=== PATIENT | female | born 1945 | race Caucasian/White ===

== ENCOUNTER 2019-06-06 09:19 | Outpatient (REF) | payer MEDICARE, SELFPAY ==
[2019-06-06 12:10] LABS: HCT 38.9 % (36.0-46.0); HGB 12.9 g/dL (12.0-15.5); Mean Corp. HGB Concentration 33.2 g/dL (32.0-36.0); Mean Corpuscular Hemoglobin 28.9 pg (27.0-33.0); Mean Corpuscular Volume 87.2 fL (80-95); Mean Platelet Volume 10.4 fL (8.0-11.0); Platelet Count 236 x1000/uL (130-400); RBC 4.46 m/cumm (4.00-5.20); RBC Distribution Width 13.5 % (11.7-14.6); White Blood Cell Count 3.51 k/cumm (4.4-10.8)
[2019-06-06 12:36] LABS: ALT 28 U/L (14-59); AST 21 U/L (15-37); BUN 19 mg/dL (7-18); CREATININE 0.79 mg/dL (0.55-1.02); Calcium 9.2 mg/dL (8.5-10.1); Chloride 104 mmol/L (98-107); Glucose 105 mg/dL (70-100); Potassium 4.2 mmol/L (3.5-5.1); Sodium 141 mmol/L (136-145); TSH (W/Ref FT4) 2.99 uIU/mL (0.36-3.74)
[2019-06-06 12:47] LABS: Hemoglobin A1C 6.1 % (4.5-6.2)
[2019-06-06 12:50] LABS: Calculated LDL 63 mg/dL; Cholesterol 144 mg/dL (50-200); GGT 50 U/L (5-55); HDL Cholesterol 56 mg/dL (40-60); Triglyceride 125 mg/dL (30-150)
== END 2019-06-06 09:39 ==
LOC: NCHCN 09:19
PROVIDERS: Visit Provider Nurse Practitioner Family
DX: E78.70 Disorder of bile acid and cholesterol metabolism, unspecified (principal); R73.9 Hyperglycemia, unspecified; E03.9 Hypothyroidism, unspecified; B19.20 Unspecified viral hepatitis C without hepatic coma; D72.819 Decreased white blood cell count, unspecified
CPT/HCPCS: 80048; 80061; 85027; 82977; 83036; 84443; 84450; 84460

== ENCOUNTER 2020-05-27 08:04 | Outpatient (REF) | payer MEDICARE, SELFPAY ==
[2020-05-27 20:49] LABS: HCT 42.3 % (36.0-46.0); HGB 13.4 g/dL (11.2-15.7); MCHC 31.7 % (32.0-36.0); MCV 88.3 fL (80-95); MPV 11.2 fL (8.0-11.0); Platelet Count 237 10^3/uL (130-400); RBC 4.79 10^6/uL (3.93-5.22); RDW 13.7 % (11.7-14.6); RDW-SD 44.4 fL; WBC 5.11 10^3/uL (4.4-10.8)
[2020-05-29 15:02] LABS: HCV RNA Qualitative Undetected (Undetected)
== END 2020-05-27 08:24 ==
LOC: NCHCN 08:04
PROVIDERS: Visit Provider Nurse Practitioner Family
DX: D72.819 Decreased white blood cell count, unspecified (principal); B19.20 Unspecified viral hepatitis C without hepatic coma
CPT/HCPCS: 85027; 87522

== ENCOUNTER 2020-09-01 04:58 | Outpatient (RCR) | payer OTHER, SELFPAY ==
--- NOTE | 2020-09-01 09:15 | HOLTER_ITS ---
APPROVED REPORT Exam Type: HOLTER MONITOR APPLICATION Reason for Test: Palpitations Patient Location: O Conclusion This is a 48-hour Holter monitor ordered for the indication of palpitations. ???The patient was in atrial fibrillation for the entirety of the recording with a maximum heart rate of 115 bpm. Minimum heart rate was 50 bpm. ???There were rare PVCs and no episodes of ventricular tachycardia. ???There were no pauses greater than 3 seconds and no evidence of high degree heart block.
== END 2020-09-28 23:59 | disposition home or self-care (01) ==
LOC: RT 04:58
PROVIDERS: PCP Nurse Practitioner Family; Visit Provider Nurse Practitioner Family
DX: R00.2 Palpitations (principal); I48.91 Unspecified atrial fibrillation
CPT/HCPCS: 93227; 93225; 93226

== ENCOUNTER 2020-09-08 12:58 | Outpatient (REF) | payer OTHER, SELFPAY ==
[2020-09-08 13:28] LABS: HCT 40.9 % (36.0-46.0); HGB 13.5 g/dL (11.2-15.7); MCH 28.4 pg (27.0-33.0); MCV 86.1 fL (80-95); MPV 10.9 fL (8.0-11.0); Platelet Count 239 10^3/uL (130-400); RBC 4.75 10^6/uL (3.93-5.22); RDW 13.5 % (11.7-14.6); RDW-SD 42.4 fL; WBC 5.25 10^3/uL (4.4-10.8)
[2020-09-08 13:54] LABS: BUN 21 mg/dL (7-18); CREATININE 0.89 mg/dL (0.55-1.02); Calcium 9.1 mg/dL (8.5-10.1); Chloride 102 mmol/L (98-107); Glucose 100 mg/dL (74-106); Sodium 136 mmol/L (136-145); TSH (W/Ref FT4) 4.36 uIU/mL (0.36-3.74)
[2020-09-08 14:15] LABS: FREE T4 0.89 ng/dL (0.76-1.46)
== END 2020-09-08 13:18 ==
LOC: NCHCN 12:58
PROVIDERS: PCP Nurse Practitioner Family; Visit Provider Nurse Practitioner Family
DX: I48.91 Unspecified atrial fibrillation (principal)
CPT/HCPCS: 80048; 85027; 84439; 84443

== ENCOUNTER 2020-09-30 18:46 | Outpatient (CLI) | payer OTHER, SELFPAY ==
--- NOTE | 2020-09-30 07:24 | DI.US_ITS ---
APPROVED REPORT EXAM: Comprehensive 2D, Doppler, and color-flow Echocardiogram Patient Location: Out-Patient Supervisor Print Line: Teresa York RDCS (AE) Indications: Atrial Fibrillation Other Information Study Quality: Adequate Conclusion Left Ventricle : The left ventricle is normal size. The left ventricular systolic function is normal. The left ventricular ejection fraction is within the normal range. There is normal left ventricular wall thickness. There is discrete upper septal wall thickening without any evidence of obstruction. There is normal LV segmental wall motion. LVEF is 55-60%. Right Ventricle : Right ventricle is not well visualized. Right ventricular systolic function could n ot be assessed. The RVSP is 24.7 mmHg. Atria : The left atrium size is normal. The right atrium size is normal. Valves: There are no hemodynamically significant valvular lesions. Great Vessels : The aortic root is normal in size. The ascending aorta is mildly dilated. IVC is norm al in size and collapses >50% with inspiration. Please see remainder of study for further details. Wall motion Left Ventricle The left ventricle is normal size. The left ventricular systolic function is normal. The left ventric ular ejection fraction is within the normal range. There is normal left ventricular wall thickness. T here is discrete upper septal wall thickening without any evidence of obstruction. There is normal LV segmental wall motion. There is no ventricular septal defect visualized. LVEF is 55-60%. Right Ventricle Right ventricle is not well visualized. Right ventricular systolic function could not be assessed. Th e RVSP is 24.7 mmHg. Atria The left atrium size is normal. The right atrium size is normal. The interatrial septum is intact wit h no evidence for an atrial septal defect. Aortic Valve The aortic valve is normal in structure. Aortic valve is trileaflet. There is no aortic valvular sten osis. No aortic regurgitation is present. Mitral Valve Mild mitral annular calcification. No evidence of mitral valve stenosis. Mild mitral regurgitation. Tricuspid Valve The tricuspid valve is normal in structure. There is no tricuspid valve stenosis. Mild tricuspid regu rgitation. Pulmonic Valve The pulmonary valve is normal in structure. There is no pulmonic valvular stenosis. Trace to mild pul carly regurgitation. Great Vessels The aortic root is normal in size. The ascending aorta is mildly dilated. IVC is normal in size and c ollapses >50% with inspiration. Pericardium There is no pericardial effusion. 2D Dimensions IVSD d PLAX 1.02 cm F: 0.6-1.0 LV Vol A2C d MOD 109.4 mL LVPW d PLAX 1.04 cm F: 0.6 - 1.0 LV Vol A4C d MOD 81.6 mL LVID d PLAX 4.32 cm F: 3.8 - 5.2 LA vol/ BSA A2C s A-L 21.8 mL/m2 LVDs 2.95 cm F: 2.2 - 3.5 LA vol/ BSA A4C s A-L 34.1 mL/m2 Ao Root d 3.54 cm F: 2.7 - 3.3 LA Vol/ BSA Biplane s A-L 28.0 mL/m2 Ao Asc Diam d 3.72 cm F: 2.3 - 3.1 LA Area A4C s MOD 20.32 cm2 LV EF Teichholz 58.6 % LA Area A2C s MOD 15.86 cm2 LVEF (Smith's) 57.18 % F: 54 - 74 LV EF A4C MOD 59.3 % LV Volume 72.90 mL F: 46 - 106 LV EF A2C MOD 56.2 % LV Volume Index 38.98 mL/m2 F: 29 - 61 LV EF Biplane MOD 57.2 % LV Vol Biplane MOD 95.0 mL SV 54.33 mL FS 30.75 % SV Index 29.04 mL/m2 M-Mode TAPSE 1.50 cm (M/F) >1.7 LV Diastology MV E' medial 0.063 (>0.07 m/s) E/A Ratio 1.0 LV E/e MED 11.40 (<14) MV E Vmax 0.72 (0.4-1.3 m/s) MV E' lateral 0.112 (>0.1 m/s) MV A Vmax 0.70 (0.4-1.3 m/s) LV E/e LAT 6.35 (<14) MV E/A Ratio 1.02 MV E/E' medial 11.43 MV E/E' lateral 6.38 Aortic Valve LVOT Area 3.58 cm2 AoV Area Vmax 2.75 cm2 LVOT Vmax 1.41 m/s AoV Area/ BSA (Vmax) 1.47 cm2/m2 LVOT Mean Lico. 0.97 m/s SIOMARA Mean Lico. 2.88 cm2 LVOT Peak Grad 7.9 mmHg SIOMARA Mean Lico. Index 1.54 cm2/m2 LVOT Mean Grad 4.4 mmHg LVOT VTI 0.294 m LVOT Diam s 2.10 cm AoV Vmax 1.83 m/s Velocity Ratio 0.77 AoV Mean Lico. 1.21 m/s AoV Peak Grad 13.4 mmHg LVOT SV 105.38 mL AoV Mean Grad 6.8 mmHg AoV VTI 0.360 m AoV Area VTI 2.92 cm2 AoV Area/ BSA (VTI) 1.56 cm/m2 Mitral Valve MV DT 249 (160-240 msec) MR Vmax 5.11 m/s MV PHT 72 msec MR VTI 1.557 m MV Area PHT 3.05 cm2 MR Peak Grad 104.4 mmHg MV VTI 0.254 m MR Mean Grad 77.5 mmHg MV Area VTI 4.15 (4.0-6.0 cm2) MR PISA Radius 0.28 cm MR EROA 0.03 cm2 MR Aliasing Velocity 0.35 m/s MR PISA 0.48 cm2 Pulmonary Valve PV Vmax 1.12 (0.5-1.5 m/s) RVOT Peak Gr. 2.26 mmHg PV Peak Grad 5.1 mmHg RVOT Mean Gr. 1.20 mmHg PV Mean Grad 2.6 mmHg RVOT VTI 0.152 m PV VTI 0.209 m RVOT Vmax 0.75 m/s Tricuspid Valve TR Peak Grad 21.6 mmHg TR Vmax 2.33 m/s RA Pressure 3.00 mmHg RVSP (TR) 24.7 mmHg
== END 2020-09-30 18:47 | disposition home or self-care (01) ==
LOC: DI 18:46
PROVIDERS: PCP Nurse Practitioner Family; Visit Provider Nurse Practitioner Family
DX: I77.810 Thoracic aortic ectasia (principal)
CPT/HCPCS: 93306

== ENCOUNTER 2020-10-17 12:58 | Outpatient (CLI) | payer OTHER, SELFPAY ==
--- NOTE | 2020-10-17 13:00 | RT.EKG_ITS ---
APPROVED REPORT Exam: Resting ECG Patient Location: O HR:86 bpm ECG Measurements Heart Rate 86 AXIS MD [id number] P [id number] QRSd 88 QRS 0 QT 381 T 2 QTc 456 Conclusion Atrial fibrillation.. Low voltage, precordial leads...precordial leads <1.0mV Anteroseptal infarct, age indeterminate...Q >35mS, T neg, V1-V2 Baseline wander in lead(s) V5
== END 2020-10-17 12:59 | disposition home or self-care (01) ==
LOC: DI.CARD 13:10
PROVIDERS: PCP Nurse Practitioner Family; Referring Provider Nurse Practitioner Family; Visit Provider Internal Medicine Cardiovascular Disease
DX: I48.91 Unspecified atrial fibrillation (principal)
CPT/HCPCS: 93010

== ENCOUNTER → 2020-10-17 12:58 | Outpatient (BNVA) | payer OTHER, SELFPAY | PROVIDERS: PCP Nurse Practitioner Family; Referring Provider Nurse Practitioner Family; Visit Provider Internal Medicine Cardiovascular Disease | DX: I48.91 Unspecified atrial fibrillation (principal); I10 Essential (primary) hypertension | CPT/HCPCS: 99203; 99204 ==

== ENCOUNTER 2020-11-04 15:15 | Outpatient (REF) | payer OTHER, SELFPAY ==
[2020-11-04 15:28] LABS: TSH 1.11 uIU/mL (0.36-3.74)
== END 2020-11-04 15:16 | disposition home or self-care (01) ==
LOC: NCHCN 15:15
PROVIDERS: PCP Nurse Practitioner Family; Visit Provider Nurse Practitioner Family
DX: E03.9 Hypothyroidism, unspecified (principal)
CPT/HCPCS: 84443

== ENCOUNTER 2021-02-03 10:52 | Outpatient (CLI) | payer OTHER, SELFPAY ==
--- NOTE | 2021-02-03 11:15 | RT.EKG_ITS ---
APPROVED REPORT Exam: Resting ECG Reason for Exam: afib Patient Location: O HR:58 bpm ECG Measurements Heart Rate 58 AXIS NJ 347 P -22 QRSd 96 QRS -2 QT 446 T -23 QTc 439 Conclusion Sinus rhythm...normal P axis, V-rate 50- 99 Prolonged NJ interval...NJ >220, V-rate 50- 90 Low voltage, precordial leads...precordial leads <1.0mV Borderline T abnormalities, diffuse leads...T flat/neg
== END 2021-02-03 10:53 | disposition home or self-care (01) ==
LOC: DI.CARD 11:20
PROVIDERS: PCP Nurse Practitioner Family; Referring Provider Nurse Practitioner Family; Visit Provider Internal Medicine Cardiovascular Disease
DX: I48.91 Unspecified atrial fibrillation (principal)
CPT/HCPCS: 93010

== ENCOUNTER → 2021-02-03 10:52 | Outpatient (BNVA) | payer OTHER, SELFPAY | PROVIDERS: PCP Nurse Practitioner Family; Referring Provider Nurse Practitioner Family; Visit Provider Internal Medicine Cardiovascular Disease | DX: I48.0 Paroxysmal atrial fibrillation (principal); Z79.01 Long term (current) use of anticoagulants; I10 Essential (primary) hypertension | CPT/HCPCS: 93005; 99214 ==

== ENCOUNTER 2021-02-12 00:27 | Outpatient (CLI) | payer OTHER, SELFPAY ==
--- NOTE | 2021-02-12 07:15 | DI.NM_ITS ---
APPROVED REPORT Exam: Pharmacologic with low level exercise Patient Location: Out-Patient Room/Bed: Stress Nurse: Anjana Vila RN; Rufus Mcgrath RN Ordering Provider:MARKOS STALLWORTH, Contact Number: BMI: 32.59 Baseline Rhythm: Sinus Rhythm, first degree HB Comment: 1st DHB, frequent pauses, inverted T waves lead III Indications: atypical chest pain, afib Medical History Medical History: afib, HTN, HLD, hypothroidism Cardiac Medications: rosuvastatin, rivaroxaban, losartan/HCTZ, levothyroxine Allergies: diflunisal, ezetimibe, quinapril Cardiac Risk Factors: HTN, HLD, obesity, Family History Previous Cardiac Procedures: stress test (10 years ago) Pretest Chest Pain Characteristics: none Exercise History: Sedentary Physical Disabilities: none Lung Sounds: Clear to auscultation Heart Sounds: Irregular, pauses Stress Test Details Test: Pharmacologic stress was paired with low level exercise. Nuclear Acquisition: Rest Tc-99m/Stress Tc-99m 1 day Rest Isotope: Tc-99m Sestamibi. Dose: 11 Date: 02/12/2021 Injection Time: 0930 Stress Isotope: Tc-99m Sestamibi. Dose: 38 Date: 02/12/2021 Injection Time: 1117 HR Resting HR Supine: 66 bpm Max Heart Rate (APMHR): 145.038319 bpm Resting HR Standin bpm Target HR (85% APMHR): 123.162828 bpm Max HR Achieved: 109 bpm % of APMHR: 75.17 Recovery HR: 80 bpm BP Resting BP Supine: 146/80 mmHg Resting BP Standin/80 mmHg Max BP: 158/70 mmHg Recovery BP: 150/72 mmHg ECG Resting ECG: Sinus Rhythm, 1st degree AV block Comment: frequent pauses Stress ECG: Sinus Rhythm, 1st degree AV block ST Change: none Arrhythmia: none Comment: frequent pauses Recovery ECG: Sinus Rhythm, 1st degree AV block Recovery ST Change: none Recovery Arrhythmia: none Comment: occ PVCs, frequent pauses Clinical Stress Symptoms: SOB Exercise duration: 4 min16 sec Exercise capacity: 1.92 METs Rate Pressure Product: [id number] Stress ECG Conclusion 1. The resting electrocardiogram showed vertical axis first-degree AV block poor R wave progression 2. Patient exercised briefly on the treadmill to a workload of 1.92 METS. She also had pharmacologic stress with regadenoson 3. Blunted hemodynamics. Peak heart rate achieved was 75% of predicted for age. 4. Echocardiographically the test was nondiagnostic due to inadequate heart rate Stress Test Summary STAGE HR BP Symptoms NOTES Supine 66 146/80 1 min post Lexiscan injection 101 140/76 SOB 3 min post Lexiscan injection 96 158/70 SOB improving 6 min post Lexiscan injection 80 150/72 SOB resolved Standing 63 154/80 Treadmill speed 1.2MPH, 0% grade MPI Conclusion Normal myocardial perfusion without evidence of ischemia or prior infarction EF 63% Radiologist Interpretation Radiologist Interpretation by: Eleazar Ag MD Interpretation Date/Time: 02/13/2021 13:50:46
[2021-02-12] MEDS: Regadenoson 0.4 MG/5 ML SYR IVP (11:25)
== END 2021-02-12 00:47 ==
PROVIDERS: PCP Nurse Practitioner Family; Visit Provider Internal Medicine Cardiovascular Disease
DX: R07.89 Other chest pain (principal); I48.91 Unspecified atrial fibrillation; I10 Essential (primary) hypertension; E78.5 Hyperlipidemia, unspecified; E66.9 Obesity, unspecified; Z82.49 Family history of ischemic heart disease and other diseases of the circulatory system
CPT/HCPCS: 78452; 93016; 93018; 93017; J2785

== ENCOUNTER 2021-04-27 10:05 | Emergency (ER) | payer OTHER, SELFPAY ==
[2021-04-27 10:22] VITALS: BP 173/80; PULSE 48; RESP 18; TEMP 36.8; O2SAT 98
--- NOTE | 2021-04-27 10:30 | ED.GENADUL_ITS ---
Discharge Plan Disposition Patient Disposition: HOME Condition: Stable Discharge Details Clinical Impression: Laceration of finger of left hand Primary Care Provider: Vicenta Ndiaye ED Provider: Mikaela Espinoza Home Meds and New Rx's Prescriptions: New cephalexin 500 mg tablet 500 mg PO BID 7 Days Qty: 14 RF: 0 No Action levothyroxine 13 mcg capsule 68.5 mcg PO DAILY RF: 0 Xarelto 20 mg tablet 20 mg PO DAILY RF: 0 losartan-hydrochlorothiazide 100-12.5 mg tablet 1 tab PO DAILY RF: 0 rosuvastatin 5 mg tablet See Rx Instructions PO DAILY RF: 0 multivitamin Tablet 1 tab PO DAILY RF: 0 Discharge Instructions Instructions: Finger Laceration (ED) Additional Instructions: At this time it does not appear that the tendon is involved, however we will place you on antibiotics due to the laceration being over a joint space. You were given the first dose here in the department. Please take them twice daily as instructed for the next 7 to 10 days. Have sutures removed in 7 to 10 days. Return for any worsening signs of infection including red streaks drainage swelling or any concerns. Please follow-up with orthopedics in 1 week for further evaluation. Follow up with primary care provider in 3-5 days. Return to ED sooner if any worsening or concerns. Increase oral fluids. Please take Tylenol or Ibuprofen with food every 4-6 hours as needed for pain and swelling. Referrals: Jay Ochoa MD [ [facility] STAFF PHYSICIAN] - 1 week Vicenta Ndiaye [Primary Care Provider] - Medical Decision Making At this time I do not appreciate a tendon injury on exam. Patient is able to extend and flex index finger without difficulty. Bleeding is controlled at this time. Laceration is sutured upon arrival. I did place patient on cephalexin 500 mg twice daily due to the laceration being over the joint space. I instructed her to follow-up with orthopedics in 1 week for follow-up. N onadherent dressing placed, strict return instructions and home care discussed patient verbalized understanding. HPI General Mode of arrival: ambulatory . Date/Time Provider Initiated Documentation: 04/27/21 10:12 . Limitations to Documentation: no limitations . Information obtained by: patient and RN notes reviewed . HPI Narrative: 75-year-old female presents to the ER after being seen in [facility] this morning. She reports a laceration which occurred while washing dishes at 8 AM this morning. She has a laceration noted to the dorsum of her index finger at the knuckle. She has full extension and flexion of the digit. The provider at the urgent care was concerned that an extensor tendon may have been involved and it is over the joint space. Sutures were placed at urgent care this morning prior to arrival. Patient is on Xarelto. Bleeding is controlled upon arrival. Related Data Home Medications Medication Instructions Recorded Confirmed losartan 100 1 tab PO DAILY 09/08/20 04/27/21 mg-hydrochlorothiazide 12.5 mg tablet rivaroxaban 20 mg tablet 20 mg PO DAILY 09/08/20 04/27/21 levothyroxine 13 mcg capsule 68.5 mcg PO DAILY cap 10/17/20 04/27/21 rosuvastatin 5 mg tablet See Rx Instructions PO DAILY 02/03/21 04/27/21 cephalexin 500 mg PO BID 7 Days #14 tab 04/27/21 multivitamin 1 tab PO DAILY 04/27/21 04/27/21 Previous Rx's Medication Instructions Recorded cephalexin 500 mg PO BID 7 Days #14 tab 04/27/21 Allergies Allergy/AdvReac Type Severity Reaction Status Date / Time diflunisal [From Dolobid] Allergy Mild Verified 04/27/21 10:27 ezetimibe [From Zetia] Allergy Mild Verified 04/27/21 10:27 quinapril [From Accupril] Allergy Mild Verified 04/27/21 10:27 General Stated Complaint: Laceration JIMMY: 3 Review of Systems All systems reviewed & are unremarkable except as noted in HPI and below Musculoskeletal Musculoskeletal: Reports as per HPI Integumentary/Breasts Skin/Breast: Reports wounds (Left index finger laceration, dorsum of hand over the joint) [facility] Social History Smoking/Tobacco Use Status: Never Smoking risk assessment performed?: Yes Alcohol Intake: current Alcohol Intake frequency: a few times a week Alcohol type: wine Drug use: Never Do you feel safe at home: Yes Do you feel safe in your relationship?: Yes Exam Extrem Left upper extremity: hand Details: normal capillary refill, neuromotor exam normal Details: fingers 2-5 ABduction normal, neurosensory exam normal, normal ROM of fingers and laceration (Sutured laceration noted over MCP joint) Course Vital Signs Vital signs: Vital Signs Temperature 36.8 C 04/27/21 10:22 Pulse 48 L 04/27/21 10:22 Respiratory Rate 18 04/27/21 10:22 Blood Pressure 173/80 H 04/27/21 10:22 Pulse Oximetry 98 04/27/21 10:22 Temperature 36.8 C 04/27/21 10:22 Temperature Source Oral 04/27/21 10:22 Pulse 48 L 04/27/21 10:22 Respiratory Rate 18 04/27/21 10:22 Blood Pressure 173/80 H 04/27/21 10:22 Blood Pressure Position Sitting 04/27/21 10:22 Pulse Oximetry 98 04/27/21 10:22 Oxygen Delivery Method Room Air 04/27/21 10:22 Oxygen Flow Rate 0 04/27/21 10:22 Pain Level 1 04/27/21 10:22
[2021-04-27] MEDS: Cephalexin 500 MG CAP, 2 CAPS/BTL PO (10:44)
[2021-04-27] MEDS: Cephalexin 500 MG CAP PO (10:44)
--- NOTE | 2021-04-27 15:11 | W.ED.FU ---
Date of service: 04/27/21 Time of Service: 15:11 Follow Up Plan: Spoke with Dr. Cornejo he from express care regarding patient. He relays his expectation was for us to reopen the wound and explore the tendon involvement. He also related the orthopedic recommendation to place patient in extension splint. I did call the patient she reports no complaints, she has been keeping her finger in extension with the dressing that was applied here. I did relay the information for orthopedics recommendation to have patient in extension. I did encourage her to keep her orthopedic appointment in 1 week. Patient verbalized understanding. At this time I do not feel it is necessary to bring patient back to reopen the wound.
== END 2021-04-27 10:54 | disposition home or self-care (01) ==
PROVIDERS: Emergency Provider Registered Nurse Emergency; PCP Nurse Practitioner Family
DX: S61.211A Laceration without foreign body of left index finger without damage to nail, initial encounter (principal); W25.XXXA Contact with sharp glass, initial encounter
CPT/HCPCS: 99283

== ENCOUNTER → 2022-04-22 08:18 | Outpatient (BNVA) | payer OTHER, SELFPAY | PROVIDERS: PCP Nurse Practitioner Family; Referring Provider Nurse Practitioner Family; Visit Provider Psychiatry & Neurology Neurology | DX: G25.0 Essential tremor (principal); G25.81 Restless legs syndrome; R13.10 Dysphagia, unspecified; I48.91 Unspecified atrial fibrillation | CPT/HCPCS: 99214 ==

== ENCOUNTER 2022-05-11 03:55 | Outpatient (CLI) | payer OTHER, SELFPAY ==
[2022-05-11 13:12] LABS: Ferritin 22 ng/mL (8-252)
== END 2022-05-11 03:56 | disposition home or self-care (01) ==
LOC: LBO 03:55
PROVIDERS: PCP Nurse Practitioner Family; Visit Provider Psychiatry & Neurology Neurology
DX: I48.91 Unspecified atrial fibrillation (principal)
CPT/HCPCS: 36415; 82728

== ENCOUNTER 2022-06-09 19:53 | Outpatient (REF) | payer OTHER, SELFPAY ==
[2022-06-09 15:13] LABS: HGB 12.5 g/dL (11.2-15.7); MCH 27.7 pg (27.0-33.0); MCHC 32.9 % (32.0-36.0); MCV 84 fL (80-95); MPV 11.5 fL (8.0-11.0); Platelet Count 216 10^3/uL (130-400); RBC 4.52 10^6/uL (3.93-5.22); RDW 13.5 % (11.7-14.6); RDW-SD 42.1 fL
[2022-06-09 15:33] LABS: ALT 45 U/L (14-59); AST 34 U/L (15-37); Albumin 3.7 g/dL (3.4-5.0); Alkaline Phosphatase 75 U/L (46-116); Anion Gap 12.1 mmol/L (3-11); BUN 19 mg/dL (7-18); Bilirubin, Total 0.5 mg/dL (0.2-1.0); CO2 23.9 mmol/L (21.0-32.0); CREATININE 0.8 mg/dL (0.55-1.02); Calcium 9.1 mg/dL (8.5-10.1); Calculated LDL 52 mg/dL (<100); Chloride 101 mmol/L (98-107); Cholesterol 137 mg/dL (<200); Estimated GFR 76.31 (mL/min/1.73m2); Glucose 81 mg/dL (74-106); HDL Cholesterol 61 mg/dL (40-60); Potassium 4.2 mmol/L (3.5-5.1); Sodium 137 mmol/L (136-145); TSH (W/Ref FT4) 2.08 uIU/mL (0.36-3.74); Total Protein 6.9 g/dL (6.4-8.2); Triglyceride 123 mg/dL (<150)
== END 2022-06-09 19:54 | disposition home or self-care (01) ==
LOC: NCHCN 19:53
PROVIDERS: PCP Nurse Practitioner Family; Visit Provider Nurse Practitioner Family
DX: E03.9 Hypothyroidism, unspecified (principal); D72.818 Other decreased white blood cell count; E78.79 Other disorders of bile acid and cholesterol metabolism; I10 Essential (primary) hypertension
CPT/HCPCS: 80053; 80061; 85027; 84443

== ENCOUNTER 2023-02-06 07:32 | Emergency (ER) | payer MEDICARE, SELFPAY ==
[2023-02-06] VITALS (58 sets, daily range): BP systolic 113–158; BP diastolic 56–93; PULSE 41–69; RESP 11–44; O2SAT 97
--- NOTE | 2023-02-06 07:30 | RT.EKG_ITS ---
APPROVED REPORT Exam: Resting ECG Reason for Exam: chest pain Patient Location: E HR:48 bpm ECG Measurements Heart Rate 48 AXIS OK 402 P 25 QRSd 90 QRS -16 QT 502 T 3 QTc 451 Conclusion Bradycardia with irregular rate...V-rate 37- 55, mean < 60 Prolonged OK interval...OK >230, V-rate 30- 49 Low voltage, precordial leads...precordial leads <1.0mV Anteroseptal infarct, old...Q >40mS, V1-V2
--- NOTE | 2023-02-06 07:59 | ED.GENADUL_ITS ---
Discharge Plan Disposition Patient Disposition: Transfer-Acute Inpatient Care Specific Acute Inpt Facility: [facility] Discharge Details Clinical Impression: Non-STEMI (non-ST elevated myocardial infarction), AV block, Mobitz II Primary Care Provider: Vicenta Ndiaye ED Provider: Brice Gabriel Home Meds and New Rx's Prescriptions: No Action levothyroxine 13 mcg capsule 68.5 mcg PO DAILY krill oil [id number] mg capsule 1 cap PO DAILY Xarelto 20 mg tablet 20 mg PO DAILY Rx Instructions: must administer with evening meal losartan-hydrochlorothiazide 100-12.5 mg tablet 1 tab PO DAILY rosuvastatin 5 mg tablet See Rx Instructions PO DAILY Rx Instructions: 2.5 PO daily; ferrous sulfate [FeroSul] 325 mg (65 mg iron) tablet 325 mg PO DAILY multivitamin Tablet 1 tab PO DAILY Medical Decision Making Case discussed with Dr. Delong from [facility]. Patient accepted in transfer for her non-STEMI and her heart block. Dr. Ilia Rodriguez is excepting physician. They have requested the patient be on a heparin drip given dose and aspirin and statin. HPI General Date/Time Provider Initiated Documentation: 02/06/23 07:39 . HPI Narrative: 77-year-old lady states that she woke up symptom-free walk to the kitchen to take her morning meds and states that she was feeling funny, proceeded to the family room she noticed some substernal chest pressure across her chest. No radiation to neck or arms not associated with any nausea vomiting. No shortness of breath. She proceeded go to the bathroom and after using the bathroom felt even more if any. More pressure and diaphoresis. At its maximum blood pressure/pain was 2 out of 10. It has not resolved currently in the emergency department she states she is comfortable but still has a 1 out of 10 chest pressure. Has never had this before. Of note this is a lady that back in November was taken off her Xarelto. She was on Xarelto for atrial fibrillation. She was cardioverted last year and given that she was in normal sinus rhythm PCP to decide to take her off the Xarelto. States that she think she had an episode of atrial fibrillation last week and for that reason started taking the Xarelto again. Related Data Home Medications Medication Instructions Recorded Confirmed losartan 100 1 tab PO DAILY 09/08/20 02/06/23 mg-hydrochlorothiazide 12.5 mg tablet rivaroxaban 20 mg tablet (Xarelto) 20 mg PO DAILY 09/08/20 02/06/23 levothyroxine 13 mcg capsule 68.5 mcg PO DAILY 10/17/20 02/06/23 rosuvastatin 5 mg tablet See Rx Instructions PO DAILY 02/03/21 04/22/22 multivitamin 1 tab PO DAILY 04/27/21 02/06/23 krill 500 mg-omega-3 150 mg-dha 45 1 cap PO DAILY 04/22/22 04/22/22 mg-epa 75 [id number] capsule (krill oil) ferrous sulfate 325 mg (65 mg 325 mg PO DAILY 02/06/23 02/06/23 iron) tablet (FeroSul) Allergies Allergy/AdvReac Type Severity Reaction Status Date / Time diflunisal [From Dolobid] Allergy Mild Verified 02/06/23 07:48 ezetimibe [From Zetia] Allergy Mild Verified 02/06/23 07:48 quinapril [From Accupril] Allergy Mild Verified 02/06/23 07:48 General Stated Complaint: Chest Pain JIMMY: 3 Review of Systems Narrative: 10 point review of system is negative unless otherwise specified in HPI PFSH All Active Problems (Updated 02/06/23 @ 10:51 by Brice Gabriel MD) Non-STEMI (non-ST elevated myocardial infarction) (Acute) AV block, Mobitz II (Acute) Dysphagia (Acute) Restless leg syndrome (Acute) Essential tremor (Acute) Laceration of finger of left hand (Acute) A-fib (Chronic) Medical History Diverticular disease Heart murmur Hepatitis C High cholesterol History of prediabetes History of reactive airway disease Hypertension Knee joint pain Leukopenia Neck abscess Rosacea Subclinical hypothyroidism Surgical History H/O cardiac radiofrequency ablation S/P surgical removal of pilonidal cyst S/P tonsillectomy and adenoidectomy Family History Brother Hypertension Hyperlipidemia Heart disease Father Hypertension Hyperlipidemia Heart disease Mother Hypertension Hyperlipidemia Diabetes Heart disease Social History Smoking/Tobacco Use Status: Never Smoking risk assessment performed?: Yes Alcohol Intake: current Alcohol Intake frequency: a few times a month Alcohol type: wine Drug use: Never Substance use type: does not use Household members: spouse Number of Children: 2 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 Exam Narrative Exam Narrative: General: A,A Ox3, Calm, no apparent distress, well developed, pleasant and cooperative Head Size/Shape: normocephalic, atraumatic Eyes Pupils: PERRLA Extraocular Mobility: intact and symmetrical Conjunctiva: non-injected, anicteric, no discharge Ears, Nose, Throat Nares: patent bilaterally Oral Cavity: moist Neck: no masses, no crepitus Respiratory Respiratory Effort: no dyspnea Auscultation: clear to auscultation bilaterally, normal breath sounds, no wheezing, no rales/crackles Cardiovascular Heart Auscultation: regular rate and rhythm, normal S1, normal S2, no murmurs, no rubs, no gallops Abdomen Inspection and Palpation: soft, non-tender, non-distended, no hepatosplenomegaly Musculoskeletal System Joints, Bones, and Muscles: no deformities Extremities: warm and well-perfused, no cyanosis, capillary refill <2 seconds Skin Skin Inspection: no rash, no lesions, no bruising Neurological Motor: normal tone, normal strength, moving all extremities equally Psychiatric: good insight, good judgement, normal mood and affect Course Vital Signs Vital signs: Vital Signs Pulse 55 L 02/06/23 07:44 Respiratory Rate 18 02/06/23 07:44 Blood Pressure 151/57 H 02/06/23 07:44 Pulse Oximetry 97 02/06/23 07:44 Pulse 55 L 02/06/23 07:44 Respiratory Rate 18 02/06/23 07:44 Blood Pressure 151/57 H 02/06/23 07:44 Blood Pressure Position Sitting 02/06/23 07:44 Pulse Oximetry 97 02/06/23 07:44 Oxygen Delivery Method Room Air 02/06/23 07:44 Oxygen Flow Rate 0 02/06/23 07:44 Critical Care Time Critical Care Time Critical Care Time: Yes Total Critical Care Time: 35 Attestation: Patient with non-STEMI. Increasing troponins. Pain-free after nitroglycerin in the emergency department. Heparinized. Also patient has intermittent Mobitz 2, requiring close monitoring. Patient accepted in transfer to [facility] cardiology service.
--- NOTE | 2023-02-06 08:00 | DI.RAD_ITS ---
Exam(s) XR CHEST 2V PA LATERAL EXAM: XR CHEST 2V PA LATERAL 2 CLINICAL HISTORY: chest pressure TECHNIQUE: 2D digital imaging was performed of the chest. Images were obtained. PA and lateral v iews were obtained. COMPARISON: No exams were available for comparison FINDINGS: MEDIASTINUM: There is a small hiatal hernia. HEART: Normal. PULMONARY VASCULATURE: Normal. LUNGS: Clear. PLEURAL SPACE: No pleural effusion or pneumothorax. BONE:Within normal limits for the patient's age. OTHER FINDINGS:Normal. IMPRESSION: No acute pulmonary findings. DATA REPOSITORY: RADIATION DOSE DELIVERED:
[2023-02-06 08:29] LABS: Absolute Basophil Count 0.04 10^3/uL (0.0-0.2); Absolute Eosinophil Count 0.05 10^3/uL (0.0-0.7); Absolute Lymphocyte Count 1.54 10^3/uL (1.2-3.4); Absolute Monocyte Count 0.24 10^3/uL (0.1-0.8); Absolute Neutrophil Count 1.52 10^3/uL (1.2-6.7); Basophils % 1.2; Eosinophils % 1.5; HCT 45.4 % (36.0-46.0); HGB 15.5 g/dL (11.2-15.7); Lymphocytes % 45.4; MCH 30.9 pg (27.0-33.0); MCHC 34.1 % (32.0-36.0); MCV 90 fL (80-95); MPV 10.3 fL (8.0-11.0); Monocytes % 7.1; Neutrophils % 44.8; Platelet Count 180 10^3/uL (130-400); RBC 5.02 10^6/uL (3.93-5.22); RDW 12.7 % (11.7-14.6); RDW-SD 41.7 fL; WBC 3.39 10^3/uL (4.4-10.8)
--- NOTE | 2023-02-06 08:37 | DI.VRAD_ITS ---
PROCEDURE INFORMATION: Exam: XR Chest Exam date and time: 02/06/2023 8:29 AM Age: 77 years old Clinical indication: Pain; Chest pressure TECHNIQUE: Imaging protocol: Radiologic exam of the chest. Views: 2 views. COMPARISON: No relevant prior studies available. FINDINGS: Lungs: Unremarkable. No consolidation. Pleural spaces: Unremarkable. No pleural effusion. No pneumothorax. Heart/Mediastinum: Unremarkable. No cardiomegaly. Bones/joints: Unremarkable. IMPRESSION: No acute findings. Dictated and Authenticated by: Jorge Doll MD. Ordering:ROBERTA Narvaez MD
[2023-02-06 08:56] LABS: ALT 35 U/L (14-59); AST 33 U/L (15-37); Albumin 3.7 g/dL (3.4-5.0); Alkaline Phosphatase 76 U/L (46-116); Anion Gap 8.7 mmol/L (3-11); BUN 17 mg/dL (7-18); Bilirubin, Total 0.8 mg/dL (0.2-1.0); CO2 27.3 mmol/L (21.0-32.0); CREATININE 0.9 mg/dL (0.55-1.02); Calcium 9.4 mg/dL (8.5-10.1); Chloride 100 mmol/L (98-107); Estimated GFR 65.84 (mL/min/1.73m2); Glucose 127 mg/dL (74-106); Potassium 4.2 mmol/L (3.5-5.1); Sodium 136 mmol/L (136-145); Total Protein 7.4 g/dL (6.4-8.2)
[2023-02-06 09:08] LABS: Troponin I 86 ng/L (<or=60)
--- NOTE | 2023-02-06 10:00 | RT.EKG_ITS ---
APPROVED REPORT Exam: Resting ECG Reason for Exam: repeat ekg Patient Location: E HR:62 bpm ECG Measurements Heart Rate 62 AXIS MI 466 P 28 QRSd 88 QRS 11 QT 490 T 22 QTc 498 Conclusion Second degree AV block, Mobitz II...multiple P waves Low voltage, extremity and precordial leads...extremity<0.5mV, precordial<1.0mV Anteroseptal infarct, old...Q >40mS, V1-V2
[2023-02-06] MEDS: Aspirin 325 MG TAB PO (10:53)
[2023-02-06] MEDS: Atorvastatin 40 MG TAB PO (11:01)
[2023-02-06 11:02] LABS: PTT Activated 29.5 sec (21.5-31.9)
[2023-02-06] MEDS: Heparin in 0.45% NaCl 25,000 UNIT/250 ML BAG 10 UNIT IV (11:26)
--- NOTE | 2023-02-06 11:40 | NUR.NOTE ---
Nursing Note: PT APTT noted to be 29.5 at this time.
[2023-02-06 11:55] LABS: Troponin I 196 ng/L (<or=60)
== END 2023-02-06 13:38 | disposition short-term general hospital (02) ==
PROVIDERS: Emergency Provider Emergency Medicine; PCP Nurse Practitioner Family
DX: I21.4 Non-ST elevation (NSTEMI) myocardial infarction (principal); I44.1 Atrioventricular block, second degree
CPT/HCPCS: 36415; 80053; 93005; 96365; 96376; 99291; 71046; 84484; 85025; 85730; 93010

== ENCOUNTER 2023-05-05 01:26 | Emergency (ER) | payer MEDICARE, SELFPAY ==
[2023-05-05] VITALS (39 sets, daily range): BP systolic 113–154; BP diastolic 40–79; PULSE 59–70; RESP 12–28; O2SAT 93–99
--- NOTE | 2023-05-05 01:15 | RT.EKG_ITS ---
APPROVED REPORT Exam: Resting ECG Reason for Exam: Chest pain Patient Location: E HR:62 bpm ECG Measurements Heart Rate 62 AXIS NV 228 P 264 QRSd 158 QRS 93 QT 581 T 266 QTc 592 Conclusion Atrial-ventricular dual-paced complexes...other complexes also detected
--- NOTE | 2023-05-05 01:30 | DI.RAD_ITS ---
Exam(s) XR PORTABLE CHEST AP EXAM: XR PORTABLE CHEST AP CLINICAL HISTORY: chest pain. TECHNIQUE: 2D digital imaging was performed. COMPARISON: CR,XR XR CHEST 2V PA LATERAL from 02/06/2023 FINDINGS: Single AP portable view. Bipolar left subclavian pacemaker with lead tips in RA and RV now evident. Heart size is upper normal. The mediastinum is not widened. Lungs are clear. No infiltrates nor obvious pleural effusions. No evidence of pulmonary edema. IMPRESSION: No acute pulmonary findings on this single AP portable view of the chest. DATA REPOSITORY: RADIATION DOSE DELIVERED:
--- NOTE | 2023-05-05 01:42 | ED.GENADUL_ITS ---
Discharge Plan Disposition Patient Disposition: Home Condition: Improving Discharge Details Clinical Impression: Atypical chest pain Primary Care Provider: Vicenta Ndiaye ED Provider: Rock Parker Meds and New Rx's Prescriptions: Continued levothyroxine 13 mcg capsule 50 mcg PO DAILY krill oil [id number] mg capsule 1 cap PO DAILY Xarelto 20 mg tablet 20 mg PO DAILY Rx Instructions: must administer with evening meal rosuvastatin 5 mg tablet 40 mg PO DAILY ferrous sulfate [FeroSul] 325 mg (65 mg iron) tablet 325 mg PO DAILY multivitamin Tablet 1 tab PO DAILY losartan 50 mg tablet 25 mg PO DAILY Patient Comments: Take 1/2 tablet by mouth once a day take 25mg daily bisoprolol fumarate 5 mg tablet 2.5 mg PO DAILY Patient Comments: TAKE ONE-HALF TABLET BY MOUTH EVERY DAY isosorbide mononitrate 30 mg tablet extended release 24 hr 30 mg PO Patient Comments: TAKE ONE TABLET BY MOUTH EVERY MORNING Discharge Instructions Instructions: Chest Pain (ED) Referrals: Vicenta Ndiaye [Primary Care Provider] - 1 week Discharge Data Discharge Date/Time-TO BE ENTERED AT DEPARTURE: 05/05/23 04:57 Discharge Physician: Rokc Parker Medical Decision Making MDM: Summary: Patient who presented to the emergency department complaining of chest pain which she says started after she ate a copious meal instructed she was indigestion but was concerned because the pain would not go away with nitroglycerin and the pain subsided. She states she was very belchy prior to that. Patient recently had a pacemaker placed and according to her it had a small non-STEMI while this was being done in the lab. 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 Her EKG was within normal limits her labs which included 2 serial troponins 3 hours apart were negative. Bedside echocardiogram was done by me shows no regional wall abnormalities. Patient has no evidence of acute coronary syndrome and will be discharged home with follow-up with her physician. Data Review Analysis All the data on this patient was reviewed by me including laboratory and imaging studies as well as bedside studies performed by me Independent review of Studies Imaging Chest x-ray was reviewed by me as well as a POCUS exam that was done by me that are unremarkable Lab: Labs which include 2 serial troponins are negative Risk Stratification: Patient has history of pacemaker and had a clean catheterization for she says she developed a non-STEMI when she was having the pacemaker placed who comes in for chest pain. She could be discharged home with close follow-up with her ammonia nitrate operator Differential Diagnosis: 1. Atypical chest pain 2. Acute coronary syndrome 3. Congestive heart failure 4. 5. Consultants: Shared disposition: Patient understands her disposition and agrees for she is versed in healthcare and understand that she can be safely discharged home Impression: Medical Records Medical records reviewed: Yes I reviewed the patient's medical records. Lab Data Lab results reviewed: Yes I reviewed the patient's lab results. ECG Data Attestation: I personally reviewed and interpreted this ECG (s) as follows: Prior ECG tracings: available for review Interpretation: HR 62 atrial ventricular dual paced complexes occasional PVCs HPI General Date/Time Provider Initiated Documentation: 05/05/23 01:40 . HPI Narrative: Patient presents to the emergency department complaining of midsternal chest pain which she reports is a dull pain which she thought it was indigestion after she ate a copious dinner. States the pain was continuous with a lot of belching and eventually decided to take nitroglycerin which she took for eventually the pain subsided but she called the ambulance and brought to the emergency department for evaluation. Patient has a history of having a pacemaker placed 2 weeks ago for second-degree heart block and states that the hospital she had a small [place]. She had an angiogram which showed no abnormalities in the setting might have been due to vasospasm. Related Data Home Medications Medication Instructions Recorded Confirmed rivaroxaban 20 mg tablet (Xarelto) 20 mg PO DAILY 09/08/20 05/05/23 levothyroxine 13 mcg capsule 50 mcg PO DAILY 10/17/20 05/05/23 rosuvastatin 5 mg tablet 40 mg PO DAILY 02/03/21 05/05/23 multivitamin 1 tab PO DAILY 04/27/21 05/05/23 krill 500 mg-omega-3 150 mg-dha 45 1 cap PO DAILY 04/22/22 05/05/23 mg-epa 75 [id number]-[id number]-bbeta capsule (krill oil) ferrous sulfate 325 mg (65 mg 325 mg PO DAILY 02/06/23 05/05/23 iron) tablet (FeroSul) bisoprolol fumarate 5 mg tablet 2.5 mg PO DAILY 05/05/23 05/05/23 isosorbide mononitrate 30 mg 30 mg PO 05/05/23 tablet,extended release 24 hr losartan 50 mg tablet 25 mg PO DAILY 05/05/23 05/05/23 Allergies Allergy/AdvReac Type Severity Reaction Status Date / Time diflunisal [From Dolobid] Allergy Mild Verified 05/05/23 01:40 ezetimibe [From Zetia] Allergy Mild Verified 05/05/23 01:40 quinapril [From Accupril] Allergy Mild Verified 05/05/23 01:40 General Stated Complaint: Chest Pain JIMMY: 2 Review of Systems Narrative: Review of Systems: Constitutional: No fevers, chills, sweats Eye: No recent visual problems ENT: No ear pain, nasal congestion, sore throat Respiratory: No shortness of breath, cough Cardiovascular: No Chest pain, palpitations, syncope Gastrointestinal: No nausea, vomiting, diarrhea Genitourinary: No hematuria Pan/Lymph: Negative for bruising tendency, swollen lymph glands Endocrine: Negative for excessive thirst, excessive hunger Musculoskeletal: No back pain, neck pain, joint pain, muscle pain, decreased range of motion Integumentary: No rash, pruritus, abrasions Neurologic: Alert & oriented X 4 Psychiatric: No anxiety, depression PFSH All Active Problems (Updated 05/05/23 @ 04:40 by Rock Parker MD) Atypical chest pain (Acute) Dysphagia (Acute) Restless leg syndrome (Acute) Essential tremor (Acute) Laceration of finger of left hand (Acute) A-fib (Chronic) Medical History Diverticular disease Heart murmur Hepatitis C High cholesterol History of prediabetes History of reactive airway disease Hypertension Knee joint pain Leukopenia Neck abscess Rosacea Subclinical hypothyroidism Surgical History H/O cardiac radiofrequency ablation S/P surgical removal of pilonidal cyst S/P tonsillectomy and adenoidectomy Family History Brother Hypertension Hyperlipidemia Heart disease Father Hypertension Hyperlipidemia Heart disease Mother Hypertension Hyperlipidemia Diabetes Heart disease Social History Smoking/Tobacco Use Status: Never Smoking risk assessment performed?: Yes Alcohol Intake: current Alcohol Intake frequency: a few times a month Alcohol type: wine Drug use: Never Substance use type: does not use Household members: spouse Number of Children: 2 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 Exam Narrative Exam Narrative: Exam; vitals signs as reported above normal Constitutional; In no acute distress, afebrile General: cooperative, healthy appearing, comfortable and no acute distress HEENT: Head: normal to inspection, no palpable skull fracture and normocephalic atraumatic Eyes: : appearance normal, both eyes and all related structures EOM intact bilaterally Pupils: PERRL : conjunctiva normal Direct ophthalmoscopy: normal light reflex, normal conjunctiva, normal visual acuity Ears: Normal TM, normal external canal Nose: normal no rhinorreha Neck no JVD, supple non tender Neck: normal visual inspection, full ROM and no lymphadenopathy Chest: normal inspection of the chest Respiratory : normal respiratory effort and able to speak in complete sentences no wheezing no rales Cardio Rate: regular rate, rhythm: regular rhythm normal heart sounds S1 and S2 no murmurs, gallops, or rubs GI : normal to inspection, normal bowel sounds, soft, non tender, non distended, no organomegaly Back/Spine/ no CVA tenderness Thoracic/Lumbar Spine: no tenderness or deformities Skin no rashes or lesions Neuro: patient alert oriented x 4 and no meningeal signs, Cranial Nerves: CN's II-XI intact bilaterally, Cognition: normal cognition, Speech: speech normal, Gait: normal gait, Depp tendon reflexes normal 2+ muscle strength 5/5 bilaterally Extremities, no edema, full range of motion, normal strength Course Vital Signs Vital signs: Vital Signs Pulse 68 05/05/23 01:19 Respiratory Rate 17 05/05/23 01:19 Blood Pressure 137/72 05/05/23 01:19 Pulse Oximetry 97 05/05/23 01:19 Pulse 68 05/05/23 01:19 Respiratory Rate 17 05/05/23 01:19 Respiratory Effort Normal 05/05/23 01:19 Blood Pressure 137/72 05/05/23 01:19 Blood Pressure Position Supine 05/05/23 01:19 Pulse Oximetry 97 05/05/23 01:19 Oxygen Delivery Method Room Air 05/05/23 01:19 Oxygen Flow Rate 0 05/05/23 01:19 Pain Level 1 05/05/23 01:19 POCUS Exam (ED) Limited Cardiac Exam DATE OF EXAM: 05/05/23 TIME OF EXAM: 02:00 PROVIDER THAT PERFORMED THE STUDY: Rock Parker IS THIS A REPEAT EXAM DURING THIS ENCOUNTER: no REASON FOR EXAM: Chest pain VISUALIZED STRUCTURES: Four Chambers, Left atrium, Left ventricle, LVOT, Right atrium, Right ventricle, Aortic valve, Mitral valve, Interventricular septum and IVC VIEW OBTAINED: Apical 4-Chamber, Parasternal long-axis, Parasternal short-axis and Subxiphoid PERTINENT FINDINGS/IMPRESSION: LV dysfunction :mild INCIDENTAL FINDINGS: mitral regurgitation mild Exam complete
[2023-05-05 02:06] LABS: Abs Immature Grans 0.01 10^3/uL (0.0-0.06); Absolute Basophil Count 0.03 10^3/uL (0.0-0.2); Absolute Eosinophil Count 0.09 10^3/uL (0.0-0.7); Absolute Lymphocyte Count 1.71 10^3/uL (1.2-3.4); Absolute Monocyte Count 0.44 10^3/uL (0.1-0.8); Absolute Neutrophil Count 4.75 10^3/uL (1.2-6.7); Basophils % 0.4; Eosinophils % 1.3; HCT 36.5 % (36.0-46.0); HGB 12.6 g/dL (11.2-15.7); Immature Grans % 0.1; Lymphocytes % 24.3; MCH 31.2 pg (27.0-33.0); MCHC 34.5 % (32.0-36.0); MCV 90 fL (80-95); MPV 10.3 fL (8.0-11.0); Monocytes % 6.3; Neutrophils % 67.6; Platelet Count 184 10^3/uL (130-400); RBC 4.04 10^6/uL (3.93-5.22); RDW-SD 42.8 fL; WBC 7.03 10^3/uL (4.4-10.8)
[2023-05-05 02:36] LABS: ALT 31 U/L (14-59); AST 43 U/L (15-37); Albumin 3.8 g/dL (3.4-5.0); Alkaline Phosphatase 58 U/L (46-116); Anion Gap 8.6 mmol/L (3-11); BUN 17 mg/dL (7-18); Bilirubin, Total 0.7 mg/dL (0.2-1.0); CO2 25.4 mmol/L (21.0-32.0); CREATININE 0.7 mg/dL (0.55-1.02); Calcium 9.6 mg/dL (8.5-10.1); Chloride 103 mmol/L (98-107); Estimated GFR 89.02 (mL/min/1.73m2); Glucose 118 mg/dL (74-106); Magnesium 2.2 mg/dL (1.8-2.4); NT-proBNP 761 pg/mL (<300); Potassium 4.4 mmol/L (3.5-5.1); Sodium 137 mmol/L (136-145); Total Protein 7.5 g/dL (6.4-8.2); Troponin I < 50 ng/L (<or=60)
--- NOTE | 2023-05-05 03:25 | DI.VRAD_ITS ---
PROCEDURE INFORMATION: Exam: XR Chest Exam date and time: 05/05/2023 2:17 AM Age: 77 years old Clinical indication: Other: Chest pain; Prior surgery; Surgery date: 6+ months; Surgery type: Pacemaker TECHNIQUE: Imaging protocol: Radiologic exam of the chest. Views: 1 view. COMPARISON: CR XR CHEST 2V PA LATERAL 02/06/2023 8:29 AM FINDINGS: Tubes, catheters and devices: Cardiac pacing device. Lungs: Mild pulmonary vascular congestion. Pleural spaces: No large pleural effusion seen. Heart/Mediastinum: Enlarged cardiac silhouette. Hiatal hernia. Bones/joints: Grossly unremarkable. IMPRESSION: No acute findings to explain reported symptoms. Dictated and Authenticated by: Esmer Copeland MD. Ordering:DANG Wilkerson MD
[2023-05-05 04:56] LABS: Troponin I < 50 ng/L (<or=60)
== END 2023-05-05 04:57 | disposition home or self-care (01) ==
PROVIDERS: Emergency Provider Emergency Medicine Emergency Medical Services; PCP Nurse Practitioner Family
DX: R07.89 Other chest pain; Z95.0 Presence of cardiac pacemaker; I44.1 Atrioventricular block, second degree
CPT/HCPCS: 36415; 80053; 93005; 93308; 99285; 71045; 83735; 83880; 84484; 85025; 93010; 99284

== ENCOUNTER 2023-12-20 10:41 | Outpatient (REF) | payer BC, SELFPAY ==
[2023-12-20 14:34] LABS: Abs Immature Grans 0.01 10^3/uL (0.0-0.06); Absolute Basophil Count 0.04 10^3/uL (0.0-0.2); Absolute Eosinophil Count 0.06 10^3/uL (0.0-0.7); Absolute Lymphocyte Count 1.88 10^3/uL (1.2-3.4); Absolute Monocyte Count 0.33 10^3/uL (0.1-0.8); Absolute Neutrophil Count 2.17 10^3/uL (1.2-6.7); Basophils % 0.9; Eosinophils % 1.3; HCT 40.8 % (36.0-46.0); HGB 13.9 g/dL (11.2-15.7); Immature Grans % 0.2; Lymphocytes % 41.9; MCH 31.1 pg (27.0-33.0); MCHC 34.1 % (32.0-36.0); MCV 91 fL (80-95); MPV 10.6 fL (8.0-11.0); Monocytes % 7.3; Neutrophils % 48.4; Platelet Count 201 10^3/uL (130-400); RBC 4.47 10^6/uL (3.93-5.22); RDW 13.2 % (11.7-14.6); RDW-SD 43.6 fL; WBC 4.49 10^3/uL (4.4-10.8)
[2023-12-20 15:00] LABS: Hemoglobin A1C 5.8 % (<5.7)
[2023-12-20 15:05] LABS: ALT 31 U/L (14-59); AST 27 U/L (15-37); Albumin 3.9 g/dL (3.4-5.0); Alkaline Phosphatase 72 U/L (46-116); Anion Gap 10.3 mmol/L (3-11); BUN 18 mg/dL (7-18); Bilirubin, Total 0.6 mg/dL (0.2-1.0); CO2 25.7 mmol/L (21.0-32.0); CREATININE 0.7 mg/dL (0.55-1.02); Calcium 9.2 mg/dL (8.5-10.1); Calculated LDL 61 mg/dL (<100); Chloride 104 mmol/L (98-107); Cholesterol 152 mg/dL (<200); Estimated GFR 88.47 (mL/min/1.73m2); Glucose 100 mg/dL (74-106); HDL Cholesterol 76 mg/dL (40-60); Potassium 4.3 mmol/L (3.5-5.1); Sodium 140 mmol/L (136-145); Total Protein 7.1 g/dL (6.4-8.2); Triglyceride 75 mg/dL (<150)
== END 2023-12-20 10:42 | disposition home or self-care (01) ==
LOC: NCHCN 10:41
PROVIDERS: PCP Nurse Practitioner Family; Visit Provider Nurse Practitioner Family
DX: I10 Essential (primary) hypertension (principal); R73.03 Prediabetes; D72.819 Decreased white blood cell count, unspecified; E03.9 Hypothyroidism, unspecified; I25.2 Old myocardial infarction
CPT/HCPCS: 80053; 80061; 83036; 84443; 85025

== ENCOUNTER 2024-02-02 14:56 | Outpatient (CLI) | payer BC, SELFPAY ==
--- NOTE | 2024-02-02 11:15 | DI.RAD_ITS ---
Exam(s) XR KNEE LT 2V AP,LAT EXAM: XR KNEE LT 2V AP,LAT CLINICAL HISTORY: LEFT KNEE PAIN. TECHNIQUE: 2D digital imaging was performed. COMPARISON: No exams were available for comparison FINDINGS: Two views. There is [id number] narrowing of the lateral compartment of the left knee. The medial compartment exhibits normal height. No evidence of fracture nor joint effusion. There are also some degenerativ e changes in the patellofemoral compartment. IMPRESSION: [id number] narrowing of the lateral compartment. Valgus deformity. DATA REPOSITORY: RADIATION DOSE DELIVERED:
--- NOTE | 2024-02-02 11:15 | DI.RAD_ITS ---
Exam(s) XR STANDING ALIGNMENT EXAM: XR STANDING ALIGNMENT CLINICAL HISTORY: LEFT KNEE PAIN. TECHNIQUE: 2D digital imaging was performed. COMPARISON: No exams were available for comparison FINDINGS: 3 views There is relatively symmetrical narrowing of the lateral compartments of both knees with relatively s ymmetrical valgus deformity bilaterally. Medial compartments of both knees exhibit preserved height. Both hips appear unremarkable as do the ankles. Bone density normal. No osseous lesions. IMPRESSION: Symmetrical valgus deformity due to degenerative narrowing of the lateral compartments of both knees. DATA REPOSITORY: RADIATION DOSE DELIVERED:
== END 2024-02-02 14:57 | disposition home or self-care (01) ==
LOC: DIORS 15:48
PROVIDERS: PCP Nurse Practitioner Family; Visit Provider Student in an Organized Health Care Education/Training Program
DX: M25.562 Pain in left knee (principal)
CPT/HCPCS: 73560; 77073

== ENCOUNTER 2024-05-04 01:06 | Outpatient (CLI) | payer MEDICARE, SELFPAY ==
--- OUTSIDE RECORDS SUMMARY | 2024-05-04 01:40 | XMS_ITS | Encounter Summary ---
[place] [address] Care Team Providers Care Access Clinician Name Role Phone Vicenta Ndiaye APRN Primary Care Provider [phone] Reason for Referral * Diagnostic Test (Routine) - Closed Specialty Diagnoses / Procedures Referred By Contac t Referred To Contact Cardiology 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 regurgitation Procedures Echocardiogram Transthoracic Stacey Mike MD [facility] [place] [address] [place] [address] [facility] [place] [address] Referral ID Status Reason Start Date Expiration Date V isits Requested Visits Authorized [id number] Closed Specialty Service Requested 05/19/2023 05/18/2024 1 1 Reason for Visit * Diagnostic Test (Routine) - Closed Specialty Diagnoses / Procedures Referred By Contac t Referred To Contact Cardiology 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 regurgitation Procedures Echocardiogram Transthoracic Stacey Mike MD [facility] [place] [address] [place] [address] [facility] [place] [address] Referral ID Status Reason Start Date Expiration Date V isits Requested Visits Authorized [id number] Closed Specialty Service Requested 05/19/2023 05/18/2024 1 1 Encounter Details Date Type Department Care Team (Late st Contact Info) Description 05/19/2023 11:03 AM EDT - 05/19/2023 11:59 PM EDT Hospital Encounter Non-Invasive Cardiology Lab [facility] [place] [address] Stacey Mike MD [facility] [place] [address] Stress-induced cardiomyopathy; Moderate to severe mitral regurgitation Discharge Disposition: Home Social History Tobacco Use Types Packs/Day Years Used Date Smoking Tobacco: Former Passive Smoke Exposure: Past Smokeless Tobacco: Never Comments:college student for a few months Alcohol Use Standard Drinks/Week Comments Yes 3 (1 standard drink = 0.6 oz pur e alcohol) DH IPV Inpatient Questions Answer Date Recorded Does Anyone Try to Keep You From Having Contact with Others or Doing Things Outside Your Home? no 04/09/2023 Feels Threatened by Someone no 03/29 Feels Unsafe at Home or Work/School no 04/09/2023 Physical Signs of Abuse Present no 04/09/2023 Sex and Gender Information Value Date Recorded Sex Assigned at Not on file Gender Identity Not on file Sexual Orientation Not on file documented as of this encounter Medications at Time of Discharge Medication Sig Dispensed Refills Start Date End Date isosorbide mononitrate CR (Imdur) 30 mg ER 24 hr tablet Take 1 tablet by mouth every morning. 30 tablet 12 04/13/2023 ferrous sulfate (FeroSul) 325 mg (65 mg iron) tablet Take 325 mg by mouth every other day. nitroGLYcerin (Nitrostat) 0.[address] 1 tablet under the tongue every 5 minutes as needed for Chest pain. 90 tablet 12 02/07/2023 levothyroxine (Synthroid) 50 mcg tablet Take 1 tablet by mouth daily. 30 tablet 3 02/07/2023 multivitamin (THERAGRAN) Tablet Take 1 tablet by mouth daily. rivaroxaban (Xarelto) 20 mg Tablet Take 20 mg by mouth daily. 09/08/2020 losartan (Cozaar) 25 mg tablet Take 1 tablet by mouth daily. 90 tablet 3 04/12/2023 09/23/2023 bisoprolol (Zebeta) 5 mg tablet Take 0.5 tablets by mouth daily. 30 tablet 3 04/12/2023 09/15/2023 rosuvastatin (Crestor) 40 mg tablet Take 1 tablet by mouth every evening. 90 tablet 3 02/07/2023 09/15/2023 documented as of this encounter Plan of Treatment Upcoming Encounters Date Type Department Care Team (Late st Contact Info) Description 07/13/2024 10:00 AM EST Hospital Encounter Non-[place] [address] Arrived documented as of this encounter Procedures Procedure Name Priority Date/Time Associated Diagnosis Comments ECHO LMTD W CONTRAST W LMTD SPEC DOPP COLOR DOPP Routine 05/19/2023 12:27 PM EDT Stress-induced cardiomyopathy Moderate to severe mitral regurgitation documented in this encounter Results * ECHO LMTD W CONTRAST W LMTD SPEC DOPP COLOR DOPP (05/19/2023 12:27 PM EDT) EF 60 HEARTLAB SYSTEM Anatomical Region Laterality Modality Cardiac Other 05/19/2023 11:2 2 AM EDT Narrative 05/19/2023 4:43 PM EDT ? Echocardiogram Report Name: GIOVANNI THACKER ? Study Date: 05/19/2023 11:22 AM ? Patient Location: : 1945 ? Height: 63 in ? Account: [id number] Age: 77 yrs ? Weight: 174 lb Gender: Female ?BSA: 1.8 m2 Ordering Physician: STACEY MIKE Referring Physician: STACEY MIKE Performed By: Mario Brady RDCS Interpreting Fellow: Drea Peralta. Exam Location: [facility]. Interpretation Summary - Left ventricle is of normal size and LV systolic function is normal globally. The LV ejection fraction is 55-60% by visual estimation There is mild hypokinesis of the apical septum and cap as well as abnormal septal motion associated with pacemaker activity. - The right ventricle is of normal size and has normal systolic function. There is a CIED lead in the RV. - There is moderate central, likely functional mitral regurgitation from atrial annular dilation. - In comparison to the 04/09/2023 study, the LV systolic function (was 45%) is improved and apical akinesis is much improved but not completely resolved. Degree of mitral regurgitation is improved. Procedure Limited - 31615. Color Doppler - 19269. limited spectral 88629. Image enhancement Optison was used for left ventricular opacification. Suboptimal quality. This study is limited because of body habitus. There is a pacemaker rhythm. Left Ventricle Left ventricle is of normal size. Mildly increased thickness of the basal septum with no obstruction to LV outflow. The left ventricular ejection fraction is 62% by Smith's biplane. Left ventricular ejection fraction is estimated visually at 55-60%. Global systolic function is normal. There are segmental wall motion abnormalities. There is abnormal septal motion associated with pacemaker activity. The apical septal wall is hypokinetic. The apical cap is hypokinetic. Right Ventricle The right ventricle is of normal size. There is a CIED lead in the right ventricle. Right ventricular function is probably normal. Left Atrium The left atrium is severely dilated. Right Atrium The right atrium is probably normal in size. A pacemaker lead is present in the right atrium. Aortic Valve The aortic valve is tricuspid. There is no aortic stenosis. There is no aortic regurgitation. Mitral Valve The mitral valve is structurally normal. There is posterior mitral annular calcification. There is no mitral stenosis. There is moderate mitral regurgitation. Tricuspid Valve The tricuspid valve is structurally normal. There is no tricuspid stenosis. There is trace tricuspid regurgitation. Venous Inferior vena cava is not well visualized. Pericardium/Pleural There is no pericardial effusion. Hemodynamics Left ventricular diastolic function is indeterminate. The estimated right atrial pressure is 3mmHg. The peak right ventricular systolic pressure is 21 mmHg. Plus RA presssure. Ejection Fraction ?2D Measurements ? Volumes LV Biplane EF: 61.5 % ? IVSd: 1.5 cm ? LA Volume Index: ?LVIDd: 4.6 cm ?50.0 ml/m2 ?LVPWd: 1.1 cm ?LV mass(C)d: 230.2 grams ? RA A4Cs_phl: 15.4 cm2 ? EDV Biplane: 80.0 ml ?LV mass(C)dI: 126.3 grams/m2 ?? EDV Biplane Index: 43.9 ? ESV Biplane: 30.8 ml ? ESV Biplane Index: 16.9 Doppler TR max lico: 227.1 cm/sec RVSP(TR): 23.6 mmHg MV E max lico: 84.2 cm/sec MV A max lico: 49.7 cm/sec MV E/A: 1.7 MV dec time: 0.20 sec Lat Peak E' Lico: 9.8 cm/sec E/ e' (lat): 8.6 Med Peak E' Lico: 5.7 cm/sec E/e' (med): 14.9 E/e' Average: 11.7 MR ERO: 0.10 cm2 MR Regurgitant Volume: 23.0 ml I ?WMSI = 1.06 ? % Normal = 94 ?Segments ??Size X - Cannot ?? 1 - Normal ?? 2 - ? 3 - Akinetic 4 - ?1-2 ? small Interpret ? Hypokinetic ?Dyskinetic ?? 3-5 ? moderate 5 - ? 6-14 ?large Aneurysmal ?15-16 ?? diffuse Procedure Note Kami Palomo MD - 05/19/2023 Echocardiogram Report Name: GIOVANNI THACKER Study Date: :22 AM Patient Location: : 1945 Height: 63 in Account: [id number] Age: 77 yrs Weight: 174 lb Gender: Female BSA: 1.8 m2 Ordering Physician: STACEY MIKE Referring Physician: STACEY MIKE Performed By: Mario Brady RDCS Interpreting Fellow: Drea Peralta. Exam Location: [facility]. Interpretation Summary - Left ventricle is of normal size and LV systolic function is normalglobally. The LV ejection fraction is 55-60% by visual estimation There is mildhypokinesis of the apical septum and cap as well as abnormal septal motion associatedwith pacemaker activity. - The right ventricle is of normal size and has normal systolic function.There is a CIED lead in the RV. - There is moderate central, likely functional mitral regurgitation fromatrial annular dilation. - In comparison to the 04/09/2023 study, the LV systolic function (was 45%)is improved and apical akinesis is much improved but not completely resolved.Degree of mitral regurgitation is improved. Procedure Limited - 92421. Color Doppler - 07048. limited spectral 28283. Imageenhancement Optison was used for left ventricular opacification. Suboptimal quality.This study is limited because of body habitus. There is a pacemaker rhythm. Left Ventricle Left ventricle is of normal size. Mildly increased thickness of the basalseptum with no obstruction to LV outflow. The left ventricular ejection fractionis 62% by Smith's biplane. Left ventricular ejection fraction is estimatedvisually at 55-60%. Global systolic function is normal. There are segmental wallmotion abnormalities. There is abnormal septal motion associated with pacemakeractivity. The apical septal wall is hypokinetic. The apical cap is hypokinetic. Right Ventricle The right ventricle is of normal size. There is a CIED lead in the right ventricle. Right ventricular function is probably normal. Left Atrium The left atrium is severely dilated. Right Atrium The right atrium is probably normal in size. A pacemaker lead is presentin the right atrium. Aortic Valve The aortic valve is tricuspid. There is no aortic stenosis. There is noaortic regurgitation. Mitral Valve The mitral valve is structurally normal. There is posterior mitralannular calcification. There is no mitral stenosis. There is moderate mitral regurgitation. Tricuspid Valve The tricuspid valve is structurally normal. There is no tricuspidstenosis. There is trace tricuspid regurgitation. Venous Inferior vena cava is not well visualized. Pericardium/Pleural There is no pericardial effusion. Hemodynamics Left ventricular diastolic function is indeterminate. The estimated rightatrial pressure is 3mmHg. The peak right ventricular systolic pressure is 21mmHg. Plus RA presssure. Ejection Fraction 2D Measurements Volumes LV Biplane EF: 61.5 % IVSd: 1.5 cm LA VolumeIndex: LVIDd: 4.6 cm 50.0 ml/m2 LVPWd: 1.1 cm LV mass(C)d: 230.2 grams RA A4Cs_phl: 15.4cm2 EDV Biplane: 80.0ml LV mass(C)dI: 126.3 grams/m2 EDV BiplaneIndex: 43.9 ESV Biplane: 30.8ml ESV BiplaneIndex: 16.9 Doppler TR max lico: 227.1 cm/sec RVSP(TR): 23.6 mmHg MV E max lico: 84.2 cm/sec MV A max lico: 49.7 cm/sec MV E/A: 1.7 MV dec time: 0.20 sec Lat Peak E' Lico: 9.8 cm/sec E/ e' (lat): 8.6 Med Peak E' Lico: 5.7 cm/sec E/e' (med): 14.9 E/e' Average: 11.7 MR ERO: 0.10 cm2 MR Regurgitant Volume: 23.0 ml I WMSI = 1.06 % Normal = 94 SegmentsSize X - Cannot 1 - Normal 2 - 3 - Akinetic 4 - 1-2small Interpret Hypokinetic Dyskinetic 3-5moderate 5 - 6-14large Aneurysmal 15-16diffuse Stacey Mike MD ECHO ORDERABLES documented in this encounter Visit Diagnoses Diagnosis Stress-induced cardiomyopathy Takotsubo syndrome Moderate to severe mitral regurgitation documented in this encounter Administered Medications Inactive Administered Medications - up to 3 most recent administrations Medication Order MAR Action Action Date Dose Rate Site perflutren protein-A microsphers (Optison) (0.22 mg/mL) injection 3 mL 3 mL, Intravenous, ONCE PRN, 1 dose, Starting on Maria L 05/19/23 at 1228, Until Maria L 05/19/23 at 1228, prn, Routine Given 05/19/2023 12:28 PM EDT 3 mLs documented in this encounter Care Teams Access Clinician Relationship Specialty Start Date End Date Vicenta Ndiaye APRN [address] [place] [address] PCP - General Family Medicine 03/11/21 documented as of this encounter
--- OUTSIDE RECORDS SUMMARY | 2024-05-04 01:40 | XMS_ITS | Encounter Summary ---
[place] [address] Care Team Providers Care Chemical Reclamation Equipment Operator Name Role Phone Vicenta Ndiaye APRN Primary Care Provider [phone] Encounter Details Date Type Department Care Team (Latest Contact Info) Description 05/19/2023 Travel Social History Tobacco Use Types Packs/Day Years [...] on file documented as of this encounter Plan of Treatment Upcoming Encounters Date Type Department Care Team (Late st Contact Info) Description 07/13/2024 10:00 AM EST Hospital Encounter Non-Invasive [place] [id number] Arrived documented as of this encounter Visit Diagnoses Not on filedocumented in this encounter Care Teams Chemical Reclamation Equipment Operator Relationship Specialty Start Date End Date Vicenta Ndiaye APRN [address] [place] [address] PCP - General Family Medicine 03/11/21 documented as of this encounter
--- OUTSIDE RECORDS SUMMARY | 2024-05-04 01:40 | XMS_ITS | Encounter Summary ---
[place] [address] Care Team Providers Care Candy Catcher Name Role Phone Vicenta Ndiaye APRN Primary Care Provider [phone] Encounter Details Date Type Department Care Team (Latest Contact Info) Description 04/20/2023 Travel Social History Tobacco Use Types Packs/Day [...] AM EST Hospital Encounter Non-Invasive [place]iology [place] [phone] Arrived documented as of this encounter Visit Diagnoses Not on filedocumented in this encounter Care Teams Candy Catcher Relationship Specialty Start Date End Date Vicenta Ndiaye APRN [address] [place] [address] PCP - General Family Medicine 03/11/21 documented as of this encounter
--- OUTSIDE RECORDS SUMMARY | 2024-05-04 01:40 | XMS_ITS | Encounter Summary ---
[place] [address] Care Team Providers Care Lead Setter Name Role Phone Vicenta Ndiaye APRN Primary Care Provider [phone] Encounter Details Date Type Department Care Team (Latest Contact Info) Description 07/11/2023 Travel Social History Tobacco Use Types Packs/Day [...] AM EST Hospital Encounter Non[place] [phone] Arrived documented as of this encounter Visit Diagnoses Not on filedocumented in this encounter Care Teams Lead Setter Relationship Specialty Start Date End Date Vicenta Ndiaye APRN [address] [place] [address] PCP - General Family Medicine 03/11/21 documented as of this encounter
--- OUTSIDE RECORDS SUMMARY | 2024-05-04 01:40 | XMS_ITS | Encounter Summary ---
Author Organization [facility] [place] [address] Care Team Providers Care Vice Admiral Name Role Phone Vicenta Ndiaye APRN Primary Care Provider [phone] Reason for Referral * Diagnostic Test (Routine) - Closed Specialty Diagnoses / Procedures Referred By Contac t Referred To Contact Cardiology 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 regurgitation Procedures Echocardiogram Transthoracic Stacey Mike MD [facility] [place] [address] [facility] [place] [address] Referral ID Status Reason Start Date Expiration Date V isits Requested Visits Authorized [id number] Closed Specialty Service Requested 05/19/2023 05/18/2024 1 1 Encounter Details Date Type Department Care Team (Late st Contact Info) Description 05/19/2023 10:40 AM EDT Office Visit Cardiology at [address] [phone] Stacey Mike MD [facility] [place] [address] Stress-induced cardiomyopathy; Moderate to severe mitral regurgitation; Paroxysmal atrial fibrillation; Chest pain, unspecified type Social History Tobacco Use Types Packs/Day Years [...] on file documented as of this encounter Last Filed Vital Signs Vital Sign Reading Time Taken Comments Blood Pressure 124/66 05/19/2023 10:08 AM EDT Pulse 59 05/19/2023 10:08 AM EDT Temperature - - Respiratory Rate - - Oxygen Saturation 99% 05/19/2023 10: 08 AM EDT Inhaled Oxygen Concentration - - Weight 80.2 kg (176 lb 11.2 oz) 023 10:08 AM EDT Height 160 cm (5' 3) 05/19/2023 10:08 AM EDT Body Mass Index 31.3 05/19/2023 10:08 AM EDT documented in this encounter Progress Notes * Stacey Mike MD - 05/19/2023 10:40 AM EDT Images from the original note were not included. CARDIOLOGY OUTPATIENT PATIENT NOTE PRIMARY CARE PROVIDER: Vicenta Ndiaye APRN Chief Complaint: Giovanni Thacker is a 77 y.o. female here for post hospital check after pacemaker placementcomplicated by BRANDY / ?stress cardiomyopathy. 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 Spouse Jaime. Plays pickleball. 2children, 4 grandchildren. All local. 01/2023: Midsternal chest pain occurring at night. No provoked by activity or relieved by rest. [facility] 01/2023 showed nonobstructive CAD (<25% LAD otherwise normal arteries). EDP 10mmHg at that time. Ireviewed these images personally and do not see evidence of slow flow, thrombus, or SCAD. 04/08-04/12/2023: Elective PPM complicated by MINOCA She had a moderate of other discomfort after the procedure including some mild chest discomfort in the center/right side of her chest, as well as her back and scapula. She reports that she did not feel like this was near the pacemaker incision site. Trop 28 to 100. LVEF 45% with mid to apical HK/AK. RV apex is akinetic. Mod-severe MR. Takotsubo/stress cardiomyopathy related to her pacemaker placement was suspected because She was started on bisoprolol and imdur and recommend follow-up echo in 1month. Interim: ED visit at [facility] for chest pain. Negative biomarkers. Reportedly POCUS was normal with recovered LV function. POCUS today nondiagnostic at apex. Basal to mid ventricle looking 55%. Discussedhiatal hernia detected on imaging, prior heart burn, experienced as severe burning and different chest pain. The possibility of coronary and/or esophageal spasm has been discussed. Microvascular angina has not been exclude by CFR however the symptoms are not provoked by exertion and relieved by rest, so I do not think I'd classify them as anginal per se. 05/19/2023: - LVEF 55-60% by visual estimation There is mild hypokinesis of the apical septum and cap as well as abnormal septal motion associated with pacemaker activity. - The right ventricle has normal systolic function. - There is moderate central, likely functional mitral regurgitation from atrial annular dilation. - In comparison to the 04/09/2023 study, the LV systolic function (was 45%) is improved and apical akinesis is much improved but not completely resolved. Degree of mitral regurgitation is improved. Social history: Social History Tobacco Use Smoking status: Former Passive exposure: Past Smokeless tobacco: Never Tobacco comments: college student for a few months Vaping Use Vaping Use: Never used Substance Use Topics Alcohol use: Yes Alcohol/week: 3.0 standard drinks Types: 3 Glasses of wine per week Drug use: Never Family history: Brother- [place] late 70s HTN HLD Mother- [place], Idiopathic hypertrophic subaortic stenosis Father-[place], SBE, congestive failure MEDICATIONS: Current Outpatient Medications Medication Sig Dispense Refill losartan (Cozaar) 25 mg tablet Take 1 tablet by mouth daily. 90 tablet 3 bisoprolol (Zebeta) 5 mg tablet Take 0.5 tablets by mouth daily. 30 tablet 3 isosorbide mononitrate CR (Imdur) 30 mg ER 24 hr tablet Take 1 tablet by mouth every morning. 30 tablet 12 ferrous sulfate (FeroSul) 325 mg (65 mg iron) tablet Take 325 mg by mouth every other day. rosuvastatin (Crestor) 40 mg tablet Take 1 tablet by mouth every evening. 90 tablet 3 nitroGLYcerin (Nitrostat) 0.[address] 1 tablet under the tongue every 5 minutes as needed for Chest pain. 90 tablet 12 levothyroxine (Synthroid) 50 mcg tablet Take 1 tablet by mouth daily. 30 tablet 3 multivitamin (THERAGRAN) Tablet Take 1 tablet by mouth daily. rivaroxaban (Xarelto) 20 mg Tablet Take 20 mg by mouth daily. No current facility-administered medications for this visit. ROS: 11 point ros either negative or per HPI Objective: Patient Vitals for the past 24 hrs: Pulse BP SpO2 05/19/23 1008 59 124/66 99 % Gen: pleasant female in NAD Eyes: Non-injected, no scleral icterus HEENT: atraumatic, MMM Cor: rrr, s1/s2 of nl character and amplitude, no m/r/g. Estimated RAP 5. Carotids without bruit. Pulm: CTAB. Normal diaphragmatic movement without use of accessory muscles Ab: soft, nt, no hernias Ext: no c/c/e. Dp/pt ++ Neuro: without focal deficit Skin: WWP, no rashes nor ulcers Psych: Well kempt, normal affect and insight TESTING: I have reviewed the pertinent outside records, laboratory data, and imaging studies. I personally reviewed the images and developed my own interpretation of the echocardiogram, stress tests,and CT scan if available, as well as the chest xray, and ECG. Pertinent results for this evaluationinclude: Assessment and Plan: #Stress cardiomyopathy: With close to full recovery LVEF 55-60% with minimal apical HK -continue bisoprolol for now -leg weakness noted, will plan to get her off of this at our follow up visit or before them if thisprogresses -Will not introduce calcium channel donnell yet for reported chest pain out of desire to have full recovery of LV apical function before changing her bisoprolol #Chest pain: Unclear etiology but favor cardiac due to January troponins. January [facility] reviewed-no SCAD, no thrombus, nonobstructive. Episode recently nocturnal pain, differential includes coronary or esophageal spasm, however, nitrates do not relieve it. -will plan for trial of diltiazem 180mg daily and stopping bisoprolol for recurrence or at next visit -continue imdur for now -aspirin withheld due to DOAC -PET stress or cMRI could be helpful to confirm prior infarct or presence of microvascular disease if chest pain continued. -consider GI sources (GERD, hiatal hernia) #Moderate mitral regurgitation -follow up in 2024, sooner PRN based on symptoms #Paroxysmal afib -continue DOAC #[facility] PPM -followed by EP Return in about 3 months (around 08/18/2023) for In Person, ok to add on for symptom check: switch bisoprolol to dilt . Stacey Mike MD 05/19/2023 5:43 PM Thank you for the opportunity to participate in this patient's cardiovascular care. All questions were answered and I look forward to the next visit. documented in this encounter Plan of Treatment Upcoming Encounters Date Type Department Care Team (Late st Contact Info) Description 07/13/2024 10:00 AM EST Hospital Encounter Non-Invasive [place] [phone] Arrived documented as of this encounter Results * ECHO LMTD W CONTRAST W LMTD SPEC DOPP COLOR DOPP (05/19/2023 12:27 PM EDT) EF 60 HEARTLAB SYSTEM Anatomical Region Laterality Modality Cardiac Other 05/19/2023 11:2 2 AM EDT Narrative 05/19/2023 4:43 PM EDT ? Echocardiogram Report Name: GIOVANNI THACKER ? Study Date: 05/19/2023 11:22 AM ? [facility] 1945 [facility]: 63 in ? Account: [id number] Age: 77 yrs ? Weight: 174 lb Gender: Female ?BSA: 1.8 m2 Ordering Physician: STACEY MIKE Referring Physician: STACEY MIKE Performed By: Mario Brady RDCS Interpreting Fellow: Drea Peralta. Exam Location: [facility]. Interpretation Summary - Left ventricle is of [...] mitral regurgitation is improved. Procedure Limited - 35087. Color Doppler - 57762. limited spectral 55887. Image enhancement Optison was used for left [...] Echocardiogram Report Name: GIOVANNI THACKER Study Date: 1:22 AM Patient Location: : 1945 Height: 63 in Account: [id number] Age: 77 yrs Weight: 174 lb Gender: Female BSA: 1.8 m2 Ordering Physician: STACEY MIKE Referring Physician: STACEY MIKE Performed By: Mario Brady RDCS Interpreting Fellow: Drea Peralta. Exam Location: [facility]. Interpretation Summary - Left ventricle is of [...] mitral regurgitation is improved. Procedure Limited - 08049. Color Doppler - 64818. limited spectral 25682. Imageenhancement Optison was used for left ventricular [...] Takotsubo syndrome Moderate to severe mitral regurgitation Paroxysmal atrial fibrillation Atrial fibrillation Chest pain, unspecified type Stress-induced cardiomyopathy Takotsubo syndrome Moderate to severe mitral regurgitation documented in this encounter Care Teams Vice Admiral Relationship Specialty Start Date End Date Vicenta Ndiaye APRN [address] [place] [address] PCP - General Family Medicine 03/11/21 documented as of this encounter
--- OUTSIDE RECORDS SUMMARY | 2024-05-04 01:40 | XMS_ITS | Encounter Summary ---
[place] [address] Care Team Providers Care Film Reproducer Name Role Phone Vicenta Ndiaye APRN Primary Care Provider [phone] Encounter Details Date Type Department Care Team (Latest Contact Info) Description 07/06/2023 Travel Social History Tobacco Use Types Packs/Day [...] AM EST Hospital Encounter Non[place] [phone] Arrived documented as of this encounter Visit Diagnoses Not on filedocumented in this encounter Care Teams Film Reproducer Relationship Specialty Start Date End Date Vicenta Ndiaye APRN [address] [place] [address] PCP - General Family Medicine 03/11/21 documented as of this encounter
--- OUTSIDE RECORDS SUMMARY | 2024-05-04 01:40 | XMS_ITS | Encounter Summary ---
[place] [address] Care Team Providers Care Butadiene Converter Utility Operator Name Role Phone Vicenta Ndiaye APRN Primary Care Provider [phone] Encounter Details Date Type Department Care Team (Latest Contact Info) Description 10/17/2023 10:00 AM EST - 10/17/2023 11:59 PM [facility] Hospital Encounter [place] [address] Discharge Disposition: Home Social History Tobacco Use Types Packs/Day Years Used Date Smoking Tobacco: Former Passive Smoke Exposure: Past Smokeless Tobacco: Never Comments:college student for a few months Alcohol Use Standard Drinks/Week Comments Yes 3 (1 standard drink = 0.6 oz pur e alcohol) IPV Inpatient Questions Answer Date Recorded Does [...] Sig Dispensed Refills Start Date End Date losartan (Cozaar) 25 mg tabletIndications:Hyperte nsion, unspecified type Take 2 tablets by mouth daily. 90 tablet 3 09/23/2023 rosuvastatin (Crestor) 5 mg tablet Take 1 tablet by mouth daily. 90 tablet 3 09/15/2023 isosorbide mononitrate CR (Imdur) 30 mg ER [...] Take 20 mg by mouth daily. 09/08/2020 documented as of this encounter Plan of Treatment Upcoming Encounters Date Type Department Care Team (Late st Contact Info) Description 07/13/2024 10:00 AM EST Hospital Encounter [place] [address] Arrived documented as of this encounter Procedures Procedure Name Priority Date/Time Associated Diagnosis Comments PRO PM INTERROGATION REMOTE UP TO 90 DAYS Routine 08/24/2023 5:22 AM EST documented in this encounter Results * Cardiac Device Check - Remote (08/24/2023 5:22 AM EST) Anatomical Region Laterality Modality Other 08/24/2023 5:22 AM EST Tae Quinteros MD IMPLANTABLE CARDIAC DEVICE documented in this encounter Visit Diagnoses Not on filedocumented in this encounter Care Teams Butadiene Converter Utility Operator Relationship Specialty Start Date End Date Vicenta Ndiaye APRN [address] [place] [address] PCP - General Family Medicine 03/11/21 documented as of this encounter
--- OUTSIDE RECORDS SUMMARY | 2024-05-04 01:40 | XMS_ITS | Referral Summary ---
Author Organization [facility] Address [address] [place] [address] Care Team Providers Care Manager Drive Name Role Phone Unavailable Primary Care Provider Unavailabl e Social History Tobacco Use Types Packs/Day Years Used Date Smoking Tobacco: Never Assessed Interpersonal Safety Answer Date Record ed Physically Hurt Never 07/22/2020 Verbally Threaten Not on file 07/22/2020 Sex and Gender Information Value Date Recorded Sex Assigned at Not on file Gender Identity Not on file Sexual Orientation Not on file Plan of Treatment Not on file Procedures Procedure Name Priority Date/Time Associated Diagnosis Comments HCV RNA DETECT QUANT Routine 05/27/2020 7:55 EDT from Last 3 Months or Most Recently Relevant to Health Maintenance Results * HCV RNA DETECT QUANT (05/27/2020 7:55 EDT) HCV RNA Qualitative Undetected Undetected 05/29/2020 14:58 EDT [facility] Blood VENOUS BLOOD / Unknown 05/27/2020 7:55 EDT 05/28/2020 16:33 EDT Narrative [facility] - 05/29/2020 14:58 EDT The quantification range of this assay is 15 IU/mL to 100,000,000 IU/mL. ??Testing was performed on the LUI Ampliprep/LUI TaqMan HCV v2.0 ([employer] Provider Outr Resulting Lab CHEMISTRY & BLOOD GAS ORDERABLES [facility] [address] [place] [address] from Last 3 Months or Most Recently Relevant to Health Maintenance
--- OUTSIDE RECORDS SUMMARY | 2024-05-04 01:40 | XMS_ITS | Encounter Summary ---
[place] [address] Care Team Providers Care Angle Shearer Name Role Phone Vicenta Ndiaye APRN Primary Care Provider [phone] Encounter Details Date Type Department Care Team (Latest Contact Info) Description 07/19/2023 10:00 AM EST - 07/19/2023 11:59 PM [facility] Hospital Encounter [place] [address] Discharge Disposition: Home Social History Tobacco Use [...] AM EST Hospital Encounter Non[place] [address] Arrived documented as of this encounter Procedures Procedure Name Priority Date/Time Associated Diagnosis Comments PRO PM INTERROGATION REMOTE UP TO 90 DAYS Routine 05/25/2023 5:25 AM EDT documented in this encounter Results * Cardiac Device Check - Remote (05/25/2023 5:25 AM EDT) Anatomical Region Laterality Modality Other 05/25/2023 5:25 AM EDT Janett Vidal MD IMPLANTABLE CARDIAC DEVICE documented in this encounter Visit Diagnoses Not on filedocumented in this encounter Care Teams Angle Shearer Relationship Specialty Start Date End Date Vicenta Ndiaye APRN [address] [place] [address] PCP - General Family Medicine 03/11/21 documented as of this encounter
--- OUTSIDE RECORDS SUMMARY | 2024-05-04 01:40 | XMS_ITS | Encounter Summary ---
Author Organization [facility] Address [address] [place] [address] Care Team Providers Care Art Librarian Name Role Phone Unavailable Primary Care Provider Unavailabl e Encounter Details Date Type Department Care Team (Late st Contact Info) Description 05/28/2020 Lab Requisition [facility] Pathology & Laboratory Medicine - [address] [address] Outr Resulting Lab, Provider Social History Tobacco Use Types Packs/Day Years Used Date Smoking Tobacco: Never Assessed Sex and Gender Information Value Date Recorded Sex Assigned at Not on file Gender Identity Not on file Sexual Orientation Not on file documented as of this encounter Plan of Treatment Not on file documented as of this encounter Procedures Procedure Name Priority Date/Time Associated Diagnosis Comments HCV RNA DETECT QUANT Routine 05/27/2020 7:55 EDT documented in this encounter Results * HCV RNA DETECT QUANT (05/27/2020 7:55 EDT) HCV RNA Qualitative Undetected Undetected 05/29/2020 14:[address] [facility] Blood VENOUS BLOOD / Unknown 05/27/2020 7:55 EDT 05/28/2020 16:33 EDT [address] [facility] - 05/29/2020 14:58 EDT The quantification range of this assay is 15 IU/mL to 100,000,000 IU/mL. ??Testing was performed on the LUI Ampliprep/LUI TaqMan HCV v2.0 ([employer] Provider Outr Resulting Lab CHEMISTRY & BLOOD GAS ORDERABLES [facility] [address] [place] [address] documented in this encounter Visit Diagnoses Not on filedocumented in this encounter
--- OUTSIDE RECORDS SUMMARY | 2024-05-04 01:40 | XMS_ITS | Encounter Summary ---
Author Organization [facility] [place] [address] Care Team Providers Care Career And Technology Education Teacher Name Role Phone Vicenta Ndiaye APRN Primary Care Provider [phone] Encounter Details Date Type Department Care Team (Late st Contact Info) Description 07/11/2023 1:00 PM EST Office Visit Cardiology at [address] [phone] Etta Ag, MIKE Pacemaker - dual lead [employer] Social History Tobacco Use Types Packs/Day Years Used Date Smoking Tobacco: Former Passive Smoke Exposure: Past Smokeless Tobacco: Never Comments:college student for a few months Alcohol Use Standard Drinks/Week Comments Yes 3 (1 standard drink = 0.6 oz pur e alcohol) [facility] Inpatient Questions Answer Date Recorded Does Anyone [...] Sign Reading Time Taken Comments Blood Pressure 132/70 07/11/2023 1:03 PM EST Pulse 58 07/11/2023 1:03 PM EST Temperature - - Respiratory Rate - - Oxygen Saturation 98% 07/11/2023 1:03 PM EST Inhaled Oxygen Concentration - - Weight 79.4 kg (175 lb) 07/11/2023 1:03 PM EST Height 160 cm (5' 3) 07/11/2023 1:03 PM EST Body Mass Index 31 07/11/2023 1:03 PM EST documented in this encounter Progress Notes * Etta Ag RN - 07/11/2023 1:00 PM EST Images from the original note were not included. Clinical Electrophysiology Device Service Note Elena Dave is a 77 y.o. female with a history of paroxysmal atrial fibrillation on Xarelto, intermittent AV conduction disease, hypertension, hypothyroidism on Synthroid, recent admission for NSTEMI in 01/2023 with concern for MINOCA (cath showed nonobstructive disease) who presented for elective placement of a left sided dual chamber transvenous pacemaker for a history of symptomatic bradycardia and evidence of high-grade conduction block on recent heart rate monitor. She had a dual chamber pacemaker implanted on 04/08/[address] Alvarado. She presents today for a ~91 day post op device/wound check. She denies any issues. PCP: Vicenta Ndiaye APRN Final Parameters at implant: LEAD AND GENERATOR DATA: [employer] Model # Serial # Generator [employer] [id number] Atrial Lead [employer] [id number] Ventricular Lead [employer] [id number] PACE/SENSE DATA: Sensed wave (mV) Threshold (V) Impedance (Ohms) Atrium 3.3 0.6 @ 0.4 ms 558 Ventricle 12.4 0.5 @ 0.4 ms 708 FINAL PROGRAMMING: Pacing: Mode Lower rate (ppm) Upper rate (ppm) DDDR 60 130 Settings: DDDR 60/130 Presenting rhythm: AP/MEDICAL TECHNOLOGIST GENERALIST Underlying rhythm: rates in the 30s Atrial Lead: P wave: 1.9mV Impedance: 624 ohms Threshold: 0.6V @ 0.4ms Ventricular Lead: R wave: 19.7mV Impedance: 874 ohms Threshold: 0.8V @ 0.4ms Since April 20, 2023 Heart rate histograms: Pacing percentages: AP 70%; MEDICAL TECHNOLOGIST GENERALIST 95% Mode switch episodes: none VHR: none Battery: 10 years Wound assessment: well healed left chest Reprogramming: Plan: remotely every 3 months, RTC in 1 year Provider: Etta Ag RN Attending: Dr. Case documented in this encounter Plan of Treatment Upcoming Encounters Date Type Department Care Team (Late st Contact Info) Description 07/13/2024 10:00 AM EST Hospital Encounter [place] [address] Arrived documented as of this encounter Visit Diagnoses Diagnosis Pacemaker - dual lead [employer] Cardiac pacemaker in situ documented in this encounter Care Teams Career And Technology Education Teacher Relationship Specialty Start Date End Date Vicenta Ndiaye APRN [address] [place] [address] PCP - General Family Medicine 03/11/21 documented as of this encounter
--- OUTSIDE RECORDS SUMMARY | 2024-05-04 01:40 | XMS_ITS | Encounter Summary ---
[place] [address] Care Team Providers Care Instructional Designer Name Role Phone Vicenta Ndiaye APRN Primary Care Provider [phone] Reason for Visit * Auth/Cert (Routine) Specialty Diagnoses / Procedures Referred By Contac t Referred To Contact Diagnoses Unspecified atrioventricular block Bradycardia, unspecified Paroxysmal atrial fibrillation AV block [I44.30]Bradycardia [R00.1]PAF (paroxysmal atrial fibrillation) [I48.0] Procedures PRO INSERT NEW OR REPLACE HEART PACER XVENOUS ATRIAL/VENTRICULAR ELECTROPHYSIOLOGY PROCEDURE INSERT PERM PACEMAKER W\TRANSVENOUS ELECTRODES; ATRIAL & VENTRICULAR (WRVU 8.52) Robin Alvarado MD [facility] [place] [address] [facility] Referral ID Status Reason Start Date Expiration Date Visits Re quested Visits Authorized [id number] 1 1 Encounter Details Date Type Department Care Team (Latest Contact Info) Description 04/09/2023 7:15 AM EDT - 04/09/2023 11:59 PM EDT Hospital Encounter Non-Invasive [place]iology [place] [id number] Discharge Disposition: Home Social History Tobacco Use Types Packs/Day Years Used Date Smoking Tobacco: Former Passive Smoke Exposure: Past Smokeless Tobacco: Never Comments: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 90 tablet 3 04/12/2023 04/12/2023 isosorbide mononitrate CR (Imdur) 30 mg ER 24 hr tablet Take 1 tablet by mouth every morning. 30 tablet 12 04/13/2023 04/12/2023 metoprolol succinate XL (Toprol-XL) 25 mg ER 24 hr tablet Take 1 tablet by mouth daily. 30 tablet 12 04/13/2023 04/12/2023 bisoprolol (Zebeta) 5 mg tablet Take 0.5 tablets by mouth daily. 30 tablet 3 04/12/2023 04/12/2023 losartan (Cozaar) 25 mg tablet Take 1 tablet by mouth daily. 90 tablet 3 04/12/2023 09/23/2023 bisoprolol (Zebeta) 5 mg tablet Take 0.5 tablets by mouth daily. 30 tablet 3 04/12/2023 09/15/2023 rosuvastatin (Crestor) 40 mg tablet Take 1 tablet by mouth every evening. 90 tablet 3 02/07/2023 09/15/2023 aspirin 81 mg chewable tablet Take 81 mg by mouth daily. 30 tablet 3 02/08/2023 04/12/2023 losartan (Cozaar) 50 mg tablet Take 1 tablet by mouth daily. 30 tablet 3 02/07/2023 04/12/2023 documented as of this encounter Plan of Treatment Upcoming Encounters Date Type Department Care Team (Late st Contact Info) Description 07/13/2024 10:00 AM EST Hospital Encounter Non-Invasive Cardiology [place] [phone] Arrived documented as of this encounter Procedures Procedure Name Priority Date/Time Associated Diagnosis Comments ECHO LMTD W CONTRAST W LMTD SPEC DOPP COLOR DOPP Routine 04/09/2023 8:10 AM EDT NSTEMI (non-ST elevated myocardial infarction) documented in this encounter Visit Diagnoses Not on filedocumented in this encounter Administered Medications Inactive Administered Medications - up to 3 most recent administrations Medication Order MAR Action Action Date Dose Rate Site perflutren protein-A microsphers (Optison) (0.22 mg/mL) injection 1.5 mL 1.5 mL, Intravenous, ONCE PRN, 1 dose, Starting on 04/09/23 at 0811, Until 04/09/23 at 0745, Per Protocol, Routine Given 04/09/2023 7:45 AM EDT 1.5 mLs documented in this encounter Care Teams Instructional Designer Relationship Specialty Start Date End Date Vicenta Ndiaye APRN [address] [place] [address] PCP - General Family Medicine 03/11/21 documented as of this encounter
--- OUTSIDE RECORDS SUMMARY | 2024-05-04 01:40 | XMS_ITS | Encounter Summary ---
[place] [address] Care Team Providers Care Move Coordinator Name Role Phone Vicenta Ndiaye APRN Primary Care Provider [phone] Encounter Details Date Type Department Care Team (Latest Contact Info) Description 04/14/2024 10:00 AM EDT - 04/14/2024 11:59 PM EDT Hospital Encounter Non[place] [address] Discharge Disposition: Home Social History Tobacco Use [...] st Contact Info) Description 07/13/2024 10:00 AM [facility] Non[place] [phone] Arrived documented as of this encounter Visit Diagnoses Not on filedocumented in this encounter Care Teams Move Coordinator Relationship Specialty Start Date End Date Vicenta Ndiaye APRN [address] [place] [address] PCP - General Family Medicine 03/11/21 documented as of this encounter
--- OUTSIDE RECORDS SUMMARY | 2024-05-04 01:40 | XMS_ITS | Encounter Summary ---
[facility] Organization [facility] [place] [address] Care Team Providers Care Food Technician Name Role Phone Vicenta Ndiaye APRN Primary Care Provider [phone] Reason for Visit * Auth/Cert (Routine) Specialty Diagnoses / Procedures Referred By Contac t Referred To Contact Diagnoses Unspecified atrioventricular block Bradycardia, unspecified Paroxysmal atrial fibrillation AV block [I44.30]Bradycardia [R00.1]PAF (paroxysmal atrial fibrillation) [I48.0] Procedures PRO INSERT NEW OR REPLACE HEART PACER XVENOUS ATRIAL/VENTRICULAR ELECTROPHYSIOLOGY PROCEDURE INSERT PERM PACEMAKER W\TRANSVENOUS ELECTRODES; ATRIAL & VENTRICULAR (WRVU 8.52) Robin Alvarado MD [facility] [place] [address] [facility] Referral ID Status Reason Start Date Expiration Date Visits Re quested Visits Authorized [id number] 1 1 Encounter Details Date Type Department Care Team (Latest Contact Info) Description 04/08/2023 12:51 PM EDT - 04/12/2023 2:11 PM EDT Hospital Encounter Heart and Vascular Unit Level 4 [place] [id number] Robin Alvarado MD [facility] [place] [address] Delgado Sanches MD [facility] [place] [address] AV block; Bradycardia; PAF (paroxysmal atrial fibrillation); Precordial pain; Troponin level elevated; NSTEMI (non-ST elevated myocardial infarction); Chest pain, unspecified type Discharge Disposition: Home Social History Tobacco Use [...] Sign Reading Time Taken Comments Blood Pressure 103/56 04/12/2023 11:41 AM EDT Pulse 65 04/12/2023 11:41 AM EDT Temperature 36.8 ??C (98.3 ??F) 04/12/2023 1 1:41 AM EDT Respiratory Rate 18 04/12/2023 11:4 1 AM EDT Oxygen Saturation 98% 04/12/2023 11: 41 AM EDT Inhaled Oxygen Concentration - - Weight 81.5 kg (179 lb 10.8 oz) 04/11/2023 3:00 AM EDT Height 160 cm (5' 3) 04/09/2023 8:11 PM EDT Body Mass Index 31.83 04/09/2023 8:11 PM EDT documented in this encounter Discharge Summaries * Eren Lema MD - 04/09/2023 7:02 PM EDT Inpatient CARDIOLOGY - Discharge Summary Patient Name: Elena Thacker Patient Age: 77 y.o. Birthdate: 1945 Admit date: 04/08/2023 Discharge date and time: 04/12/23 12:29 PM Attending Physician: Chauncey Neri MD Follow-up Recommendations for Providers: -Given reassuring cardiac cath in January 2023, likely Takotsubo/stress cardiomyopathy related to her pacemaker placement. Started on bisoprolol and imdur and recommend follow-up echo in 1 month. Discharge Diagnoses (Hospital Problems) and Secondary Diagnoses (Chronic Problems): Active Hospital Problems Diagnosis NSTEMI (non-ST elevation myocardial infarction) Troponin level elevated Pacemaker - dual lead Mazree Resolved Hospital Problems No resolved problems to display. Active Non-Hospital Problems Diagnosis NSTEMI (non-ST elevated myocardial infarction) Atrial fibrillation Hypertension Hypothyroidism Operations/Major Procedures: Operations: Procedure(s): ELECTROPHYSIOLOGY PROCEDURE INSERT PERM PACEMAKER W\TRANSVENOUS ELECTRODES; ATRIAL & VENTRICULAR (WRVU 8.52) Other Major Procedures: N/A History of Presentation: 77 yo woman with a history of paroxysmal atrial fibrillation on Xarelto, intermittent AV conductiondisease, hypertension, hypothyroidism on Synthroid, recent admission for NSTEMI in 01/2023 with concern for MINOCA (cath showed nonobstructive disease) who presented for elective placement of a left sided dual chamber transvenous pacemaker for a history of symptomatic bradycardia and evidence of high-grade conduction block on recent heart rate monitor. This was performed on 04/08. Electrophysiologyrequested transfer to the cardiology service for work-up of her chest pain and elevated troponins. She underwent an uncomplicated dual-chamber pacemaker placement by Dr. Alvarado on 04/08. This was left-sided. After procedure was complete, sensing was 3.3 mV in atrium, 12.4 V in the ventricle. Thresholds were good, 0.6 at 0.4 ms in atrium, 0.5 at 0.4 ms in the ventricle, impedance of 558 in the atrium, impedance of 708 in the ventricle. The patient is set at DDDR at 60. When I interviewed the patient, she reported that she started having right arm pain during the procedure. They readjusted her on the EP lab table, without too much improvement in her discomfort. She then states she had a moderate of other discomfort after the procedure including some mild chest discomfort in the center/right side of her chest, as well as her back and scapula. She reports that shedid not feel like this was near the pacemaker incision site. She received 4 doses of sublingual nitro from 7 PM to 9 PM with only mild improvement of her symptoms. She then received Tylenol 650 mg around 1 AM on 04/09 with resolution of her discomfort. She has no complaints when I saw her. Her EKG in the evening on 04/08 showed ventricular paced rhythm with occasional AV dual paced complexes/PVCs, with a rate of 71. Her high-sensitivity troponin trended from 28 to 100. Patient reports that her discomfort felt similar to her admission on 01/2023. At that time her troponin I trended from86 to 196. She received an echo showing an LVEF of 60%, mild to moderate MR. Left heart cath without evidence of obstructive disease. Therefore an unclear cause, possible vasospastic/microvascular/endothelial dysfunction. She was discharged on aspirin, losartan 50, nitro as needed as new medications. Hospital Course: #Stress Cardiomyopathy #Possible Type 2 NSTEMI #Vasospastic Angina Patient's echo showed moderately reduced EF with akinesis of the apex, so patient was admitted for NSTEMI and started on a heparin drip. Patient was also started on amlodipine 2.5 due to concerns forPrinzmetal angina. After further discussion, it was decided that in the context of a primarily apical presentation of her wall motion abnormalities, plus a relatively recent cardiac catheterization that showed minimal coronary arterial disease, her presentation was more consistent with a stress cardiomyopathy rather than ischemic disease. She was taken off the heparin drip and put back on her home Xarelto. She was also switched from amlodipine to bisoprolol and Imdur. Planned to have her follow up in a month witha repeat echo to see if her EF has improved. #AV Block Patient had a pacemaker placed prior to admission. No issues with the pocket, dressing clean and dry at the time of discharge, no signs of infection. #Paroxysmal A fib Patient's Xarelto was temporarily held while she was started on a heparin drip for concern of NSTEMI, but was subsequently restarted on 04/11. Important Studies and Lab Data: Labs: Recent Labs 04/12/23 0353 04/11/23 0244 04/10/23 0517 WBC 5.0 6.2 6.4 HGB 11.8 12.6 13.4 HCT 34.4* 37.6 39.0 PLATELET 143* 152 158 Recent Labs 04/12/23 0353 04/11/23 0244 04/10/23 0517 NA 134* 134* 137 K 3.6 3.6 4.0 CL 101 101 104 CO2 22 22 22 BUN 15 10 13 CREATININE 0.74 0.60* 0.64* Recent Labs 04/12/23 0353 04/11/23 0244 04/10/23 0517 CALCIUM 8.9 9.2 9.2 No results for input(s): AST, ALT, ALKPHOS, BILITOT, BILIDIR in the last 72 hours. No results for input(s): PT, PTT, INR in the last 72 hours. No results for input(s): TROPONINT in the last 72 hours. No results for input(s): PHART, PO2ART, PUG8CTH in the last 72 hours. No results for input(s): PHVEN, XCS2ZRV, PO2VEN, WPR4ZBZ in the last 72 hours. Studies: TTE: Left ventricle is of normal size. Mildly increased thickness of the basal septum with no obstruction to LV outflow. Left ventricular systolic function is mildly reduced. Left ventricular ejection fraction is estimated visually at 45%, with prominent apical akinesis and some mid ventricular hypokinesis (see diagram in PDF). The right ventricular apex is akinetic. The peak right ventricular systolic pressure is 41 mmHg. There is moderate to severe functional mitral regurgitation. See report for additional findings. Compared to the TTE performed 02/07/23, RWMAs are now present and MR is more prominent. Results for orders placed or performed during the hospital encounter of 04/08/23 XR Chest PA & Lateral (Generic) (Exam End: 04/09/2023 6:22 AM) Impression No pneumothorax status post placement of dual lead pacemaker. Thank you for letting us participate in the care of this patient. If you are a health care provider and have any questions regarding this report, please contact the number below. For patients who have questions please contact the health director of healthcare systems that requested your imaging first. Pending Studies and Lab Data: The patient will need the following test completed on: 04/01/2023 1. CBC (with Diff) Diagnosis: Authorizing Provider: Delgado Sanches MD Discharge Conditions/Prognosis: Stable. Gen: NAD. HEENT: Anicteric. CV: RRR. Normal S1 and S2. No M/R/G. Pacemaker in place with pressure dressing on top of wound. Pulm: clear to ascultation bilaterally in the posterior lung onofre. Abd: normoactive bowel sounds. Soft, nondistended, nontender. Ext: no edema, clubbing, or cyanosis. Discharge to: Home. Discharge Medications: Your Medications New Medications Dose Details bisoprolol 5 mg tablet Commonly known as: Zebeta Take 0.5 tablets by mouth daily. 2.5 mg Quantity: 30 tablet Refills: 3 isosorbide mononitrate CR 30 mg ER 24 hr tablet Commonly known as: Imdur Take 1 tablet by mouth every morning. Start taking on: April 13, 2023 30 mg Quantity: 30 tablet Refills: 12 Continued medications with new dosing Dose Details losartan 25 mg tablet Commonly known as: Cozaar Take 1 tablet by mouth daily. What changed: medication strength how much to take 25 mg Quantity: 90 tablet Refills: 3 Continued medications, unchanged Dose Details ferrous sulfate 325 mg (65 mg iron) tablet Commonly known as: FeroSul Take 325 mg by mouth every other day. 325 mg Refills: 0 levothyroxine 50 mcg tablet Commonly known as: Synthroid Take 1 tablet by mouth daily. 50 mcg Quantity: 30 tablet Refills: 3 multivitamin Tablet Commonly known as: THERAGRAN Take 1 tablet by mouth daily. 1 tablet Refills: 0 nitroGLYcerin 0.4 mg sublingual tablet Commonly known as: Nitrostat Place 1 tablet under the tongue every 5 minutes as needed for Chest pain. 0.4 mg Quantity: 90 tablet Refills: 12 rivaroxaban 20 mg tablet Commonly known as: Xarelto Daily Refills: 0 rosuvastatin 40 mg tablet Commonly known as: Crestor Take 1 tablet by mouth every evening. 40 mg Quantity: 90 tablet Refills: 3 STOPPED Medications aspirin 81 mg chewable tablet Updated Allergies/ADRs: Allergies Allergen Reactions Diflunisal Ezetimibe Quinapril Instructions Given to Patient at Discharge: Patient Instructions Instructions on Discharge to Home Why you were hospitalized - You initially came in for an elective placement of a cardiac pacemaker.Afterward you developed some chest pain and lab abnormalities concerning for a heart attack. Based on the images we took of your heart we think that the stress of the procedure caused your heart to not squeeze as well as normal. We made some changes to your blood pressure medications to help with this and this should hopefully resolve on its own. We'll plan to have you follow-up in a month for another echocardiogram to see if your heart function has returned to normal. Call your doctor or seek medical attention if you develop the following - chest pain, shortness of breath, feeling dizzy upon standing, passing out, diarrhea, constipation lasting longer than 2 days,fevers (temperature over 100.3), chills, abdominal pain, vomiting, difficulty or discomfort when urinating, bloody or black bowel movements, or any other acute or concerning symptom. Activity level - No heavy lifting on side where pacemaker was placed for 6 weeks Diet - No change in previous diet Driving - As before hospitalization Shower/Bath - See instructions from pacemaker team Wound Care - Per instructions from pacemaker team Home Oxygen therapy - not indicated Your Discharge Medication List Your Medications New Medications Dose Details bisoprolol 5 mg tablet Commonly known as: Zebeta Take 0.5 tablets by mouth daily. 2.5 mg Quantity: 30 tablet Refills: 3 isosorbide mononitrate CR 30 mg ER 24 hr tablet Commonly known as: Imdur Take 1 tablet by mouth every morning. Start taking on: April 13, 2023 30 mg Quantity: 30 tablet Refills: 12 Continued medications with new dosing Dose Details losartan 25 mg tablet Commonly known as: Cozaar Take 1 tablet by mouth daily. What changed: medication strength how much to take 25 mg Quantity: 90 tablet Refills: 3 Continued medications, unchanged Dose Details ferrous sulfate 325 mg (65 mg iron) tablet Commonly known as: FeroSul Take 325 mg by mouth every other day. 325 mg Refills: 0 levothyroxine 50 mcg tablet Commonly known as: Synthroid Take 1 tablet by mouth daily. 50 mcg Quantity: 30 tablet Refills: 3 multivitamin Tablet Commonly known as: THERAGRAN Take 1 tablet by mouth daily. 1 tablet Refills: 0 nitroGLYcerin 0.4 mg sublingual tablet Commonly known as: Nitrostat Place 1 tablet under the tongue every 5 minutes as needed for Chest pain. 0.4 mg Quantity: 90 tablet Refills: 12 rivaroxaban 20 mg tablet Commonly known as: Xarelto Daily Refills: 0 rosuvastatin 40 mg tablet Commonly known as: Crestor Take 1 tablet by mouth every evening. 40 mg Quantity: 90 tablet Refills: 3 STOPPED Medications aspirin 81 mg chewable tablet Follow-up: Future Appointments Date Time Provider Department Center 04/20/2023 10:30 AM Etta Ag RN [facility] CARD 4A [facility] 05/19/2023 10:40 AM Rhonda Mike MD [facility] CARD 4A [facility] Your Inpatient Medical Team at [facility] Name(s) of your inpatient provider(s): Chauncey Neri MD, Eren Lema MD, Eneida Berger MD Your Primary Care Provider: Vicenta Ndiaye, ASIM [phone] For questions regarding this document or issues relating to this hospitalization on the Medical Service, please contact your inpatient physician through the [facility] Fiber Optics Engineer . Issues afterhours and on weekends will be handled by the Hospitalist staff on-call. General Instructions FINAL PACEMAKER RECOMMENDATIONS: 1. Standard post implant discharge instructions (see below): 2. Medications as listed above. Resume rivaroxaban(Xarelto) on TuesdayApril 11 PM You may use ice packs over the incision. Make sure to use a clothing designer (such as a towel) in between the ice pack and the bare skin and that it stays DRY. 3. Follow up in pacemaker clinic in 10 days for a wound check and device check. DEVICE CLINIC 1. You will be scheduled for a ~10 day wound check in the Device Clinic for: ?? Incision check ?? Device interrogation ?? Review of remote follow up and set up of home monitor 2. Your device will be checked every 3 months (either in clinic or by remote). 3. You will be given or mailed a home monitor so that your device can send clinical data to the device clinic nurses. If you are unable to set this up at home prior to your wound check, we will review this at the time of your appointment NOTE: The device data we review from your home monitor is comparable to an in- office appointment. Therefore, your insurance company will be billed for review of your data. Depending on your coverage,you may be responsible for a portion of his charge. We recommend that you contact your insurance carrier for more details about your particular coverage. WOUND CARE FOR YOUR INCISION: Your wound will usually heal in 7-10 days. Your wound may be tender, it may appear slightly red andbumpy and there may be dry, crusty scabbing. These are all normal. How to Care for your Incision: - Either you or someone with you needs to look at the wound every day. - Report any signs of infection immediately: Drainage Swelling Warmth Increased pain Fevers/chills - Call if you are concerned about infection or the edges of the wound separate - A needle should not be put into the wound area because this can damage the device. You may need to remind your healthcare provider of this concern - There are sutures inside the incision that will dissolve on their own - Do not scratch or rub the wound - Do not apply creams, lotions, or ointments to the incision until is completely healed. - You may cover the wound with gauze if it rubs on clothing and causes discomfort - Protect your wound from injury until the skin has had sufficient time to heal - Do not shower for 48 hours after implant - While in the shower, turn your back to the water nozzle so you avoid direct water pressure on thewound. Continue this for 7-10 days. - After 48 hours, you may wash the wound gently with soap and water (unless there is DermaBond on the incision - see below) - Do not submerge the incision (bathtubs, hot tubs, or swimming) for at least two weeks Your incision has been covered with a Mepilex dressing. - This dressing will stay on for 5 days. - Please remove the dressing on: TuesdayApril 13 - If the edges pull up substantially or fluid gets underneath the Mepilex dressing, remove it sooner - Once removed, you may notice some grayish discoloration. This is normal. Your incision has been closed with: SteriStrips - These are thin adhesive strips placed over your incision to help it heal. - Leave them in place until they fall off (approximately 10-14 days) - Do not scratch, rub, or pick at them. This may pull at your incision before it is completely healed, which can increase the risk of infection. CALL IMMEDIATELY: If you develop chest pain, shortness of breath, bleeding, discharge from the incision, opening of the incision and/or fever/temperature >100 degrees F. The office scheduling phone number is [phone]. ARM MOVEMENT RESTRICTIONS POST-IMPLANT - Do not raise your elbow on the operated side above the shoulder for 6 weeks - Do not lift greater than 7 pounds (equal to a gallon of milk) on the operated side for 6 weeks. - Do not fully extend this arm in any direction away from the torso for 6 weeks - You may use your arm on the operated side, but do not make extreme movement (such as stretching or reaching for a heavy object) for 6 weeks - No driving for one week. If you have any questions or concerns about this product, please call the Cardiac ElectrophysiologyTriage Nurse at [phone], option 3. Future Appointments and Orders Future Appointments and Orders Future Appointments Provider Department Dept Phone 04/20/2023 10:30 AM Etta Ag RN Cardiology at [facility] Arrive at: Customer Program Specialist Area 4A [phone] 05/19/2023 10:40 AM Rhonda Mike MD Cardiology at [facility] Arrive at: Customer Program Specialist Area 4A [phone] Discharge References/Attachments: Discharge References/Attachments None Inpatient Provider Contact Information: Please call the hospital mailhouse operator at [phone] and ask to be connected with Cardiology Team S1 (pager [phone]). Electronically Signed By: Eren Lema MD 04/12/2023 Associated attestation - Chauncey Neri MD - 04/12/2023 2:06 PM EDT I have seen and examined the patient, providing langston components as outlined below. I have reviewed the resident???s above note; my evaluation of the patient is below: Her presentation is most compatible with stress cardiomyopathy. She has known normal coronaries from a recent left heart catheterization. She now presents with a new apical wall motion Abnormality. We have added a beta-donnell. She will discharge. She will need a follow-up echocardiogram early as an outpatient. documented in this encounter Discharge Instructions * Discharge Instructions* Bradley Krishnan PA - 04/09/2023 9:59 AM EDT FINAL PACEMAKER RECOMMENDATIONS: 1. Standard post implant discharge instructions (see below): 2. Medications as listed above. Resume rivaroxaban(Xarelto) on TuesdayApril 11 PM You may use ice packs over the incision. Make sure to use a clothing designer (such as a towel) in between the ice pack and the bare skin and that it stays DRY. 3. Follow up in pacemaker clinic in 10 days for a wound check and device check. DEVICE CLINIC 1. You will be scheduled for a ~10 day wound check in the Device Clinic for: ?? Incision check ?? Device interrogation ?? Review of remote follow up and set up of home monitor 2. Your device will be checked every 3 months (either in clinic or by remote). 3. You will be given or mailed a home monitor so that your device can send clinical data to the device clinic nurses. If you are unable to set this up at home prior to your wound check, we will review this at the time of your appointment NOTE: The device data we review from your home monitor is comparable to an in- office appointment. Therefore, your insurance company will be billed for review of your data. Depending on your coverage,you may be responsible for a portion of his charge. We recommend that you contact your insurance carrier for more details about your particular coverage. WOUND CARE FOR YOUR INCISION: Your wound will usually heal in 7-10 days. Your wound may be tender, it may appear slightly red andbumpy and there may be dry, crusty scabbing. These are all normal. How to Care for your Incision: - Either you or someone with you needs to look at the wound every day. - Report any signs of infection immediately: Drainage Swelling Warmth Increased pain Fevers/chills - Call if you are concerned about infection or the edges of the wound separate - A needle should not be put into the wound area because this can damage the device. You may need to remind your healthcare provider of this concern - There are sutures inside the incision that will dissolve on their own - Do not scratch or rub the wound - Do not apply creams, lotions, or ointments to the incision until is completely healed. - You may cover the wound with gauze if it rubs on clothing and causes discomfort - Protect your wound from injury until the skin has had sufficient time to heal - Do not shower for 48 hours after implant - While in the shower, turn your back to the water nozzle so you avoid direct water pressure on thewound. Continue this for 7-10 days. - After 48 hours, you may wash the wound gently with soap and water (unless there is DermaBond on the incision - see below) - Do not submerge the incision (bathtubs, hot tubs, or swimming) for at least two weeks Your incision has been covered with a Mepilex dressing. - This dressing will stay on for 5 days. - Please remove the dressing on: TuesdayApril 13 - If the edges pull up substantially or fluid gets underneath the Mepilex dressing, remove it sooner - Once removed, you may notice some grayish discoloration. This is normal. Your incision has been closed with: SteriStrips - These are thin adhesive strips placed over your incision to help it heal. - Leave them in place until they fall off (approximately 10-14 days) - Do not scratch, rub, or pick at them. This may pull at your incision before it is completely healed, which can increase the risk of infection. CALL IMMEDIATELY: If you develop chest pain, shortness of breath, bleeding, discharge from the incision, opening of the incision and/or fever/temperature >100 degrees F. The office scheduling phone number is [phone]. ARM MOVEMENT RESTRICTIONS POST-IMPLANT - Do not raise your elbow on the operated side above the shoulder for 6 weeks - Do not lift greater than 7 pounds (equal to a gallon of milk) on the operated side for 6 weeks. - Do not fully extend this arm in any direction away from the torso for 6 weeks - You may use your arm on the operated side, but do not make extreme movement (such as stretching or reaching for a heavy object) for 6 weeks - No driving for one week. If you have any questions or concerns about this product, please call the Cardiac ElectrophysiologyTriage Nurse at [phone], option 3. * Patient Instructions* Eren Lema MD - 04/12/2023 11:50 AM EDT Instructions on Discharge to Home Why you were hospitalized - You initially came in for an elective placement of a cardiac pacemaker.Afterward you developed some chest pain and lab abnormalities concerning for a heart attack. Based on the images we took of your heart we think that the stress of the procedure caused your heart to not squeeze as well as normal. We made some changes to your blood pressure medications to help with this and this should hopefully resolve on its own. We'll plan to have you follow-up in a month for another echocardiogram to see if your heart function has returned to normal. Call your doctor or seek medical attention if you develop the following - chest pain, shortness of breath, feeling dizzy upon standing, passing out, diarrhea, constipation lasting longer than 2 days,fevers (temperature over 100.3), chills, abdominal pain, vomiting, difficulty or discomfort when urinating, bloody or black bowel movements, or any other acute or concerning symptom. Activity level - No heavy lifting on side where pacemaker was placed for 6 weeks Diet - No change in previous diet Driving - As before hospitalization Shower/Bath - See instructions from pacemaker team Wound Care - Per instructions from pacemaker team Home Oxygen therapy - not indicated Your Discharge Medication List Your Medications New Medications Dose Details bisoprolol 5 mg tablet Commonly known as: Zebeta Take 0.5 tablets by mouth daily. 2.5 mg Quantity: 30 tablet Refills: 3 isosorbide mononitrate CR 30 mg ER 24 hr tablet Commonly known as: Imdur Take 1 tablet by mouth every morning. Start taking on: April 13, 2023 30 mg Quantity: 30 tablet Refills: 12 Continued medications with new dosing Dose Details losartan 25 mg tablet Commonly known as: Cozaar Take 1 tablet by mouth daily. What changed: medication strength how much to take 25 mg Quantity: 90 tablet Refills: 3 Continued medications, unchanged Dose Details ferrous sulfate 325 mg (65 mg iron) tablet Commonly known as: FeroSul Take 325 mg by mouth every other day. 325 mg Refills: 0 levothyroxine 50 mcg tablet Commonly known as: Synthroid Take 1 tablet by mouth daily. 50 mcg Quantity: 30 tablet Refills: 3 multivitamin Tablet Commonly known as: THERAGRAN Take 1 tablet by mouth daily. 1 tablet Refills: 0 nitroGLYcerin 0.4 mg sublingual tablet Commonly known as: Nitrostat Place 1 tablet under the tongue every 5 minutes as needed for Chest pain. 0.4 mg Quantity: 90 tablet Refills: 12 rivaroxaban 20 mg tablet Commonly known as: Xarelto Daily Refills: 0 rosuvastatin 40 mg tablet Commonly known as: Crestor Take 1 tablet by mouth every evening. 40 mg Quantity: 90 tablet Refills: 3 STOPPED Medications aspirin 81 mg chewable tablet Follow-up: Future Appointments Date Time Provider Department Center 04/20/2023 10:30 AM Etta Ag RN [facility] CARD 4A [facility] 05/19/2023 10:40 AM Rhonda Mike MD [facility] CARD 4A [facility] Your Inpatient Medical Team at [facility] Name(s) of your inpatient provider(s): Chauncey Neri MD, Eren Lema MD, Eneida Berger MD Your Primary Care Provider: Vicenta Ndiaye APRN [phone] For questions regarding this document or issues relating to this hospitalization on the Medical Service, please contact your inpatient physician through the [facility] Fiber [employer] Engineer . Issues afterhours and on weekends will be handled by the Hospitalist staff on-call. documented in this encounter Medications at Time of Discharge [...] 02/07/2023 09/15/2023 documented as of this encounter Progress Notes * Eren Lema MD - 04/11/2023 8:50 AM EDT Images from the original note were not included. 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 24-hour events/Subjective: Doing well on the nitro drip, had a little bit of chest pain this morning radiating up her neck that resolved with some Tylenol and Tums. Otherwise feeling well this morning, no SOB, no palpitations,no N/V/D Meds: Continuous Infusions: heparin (porcine) infusion 950 Units/hr (04/11/23 0414) nitroGLYcerin 10 mcg/min (04/10/23 1040) Scheduled Meds: levothyroxine 50 mcg Oral QAM losartan 50 mg Oral Daily rosuvastatin 40 mg Oral QPM amLODIPine 2.5 mg Oral Daily aspirin 81 mg Oral Daily ferrous sulfate EC 325 mg Oral Q48H PRN Meds:.calcium carbonate, acetaminophen, heparin (porcine) infusion AND heparin (porcine) Physical Exam: Last value Range last 24 hrs Temperature Temp: 36.9 ??C (98.4 ??F) Temp: [36.6 ??C (97.9 ??F)-37 ??C (98.6 ??F)] Heart Rate Heart Rate: 79 Heart Rate: [63-83] Blood Pressure BP: 125/66 BP: (97-132)/(57-79) Respiratory Rate Resp: 16 Resp: [16-18] SpO2 SpO2: 92 % SpO2: [92 %-99 %] Intake/Output Summary (Last 24 hours) at 04/11/2023 0850 Last data filed at 04/11/2023 0800 Gross per 24 hour Intake 1228 ml Output 1000 ml Net 228 ml Cumulative I/O's since admission: Patient Vitals for the past 168 hrs: Weight 04/11/23 0300 81.5 kg (179 lb 10.8 oz) 04/09/232010 81.8 kg (180 lb 5.4 oz) 04/08/23 1321 81.1 kg (178 lb 11.2 oz) Admit weight: 187 lb 11.2 oz Physical exam: Gen: NAD. HEENT: Anicteric. CV: RRR. Normal S1 and S2. No M/R/G. Pacemaker in place with pressure dressing on top of wound. Pulm: clear to ascultation bilaterally in the posterior lung onofre. Abd: normoactive bowel sounds. Soft, nondistended, nontender. Ext: no edema, clubbing, or cyanosis. Pertinent Labs in the Last 24 Hours: Recent Labs 04/11/2324304/10/2351604/09/23 0705 WBC 6.2 6.4 5.4 HGB 12.6 13.4 13.6 HCT 37.6 39.0 39.3 PLATELET 152 158 154 Recent Labs 04/11/2324304/10/2351604/09/23 1053 NA 134* 137 140 K 3.6 4.0 4.1 CL 101 104 107 CO2 22 22 24 BUN 10 13 9 CREATININE 0.60* 0.64* 0.63* No results for input(s): AST, ALT, ALKPHOS, BILITOT, BILIDIR in the last 168 hours. Recent Labs 04/11/2324304/10/2351604/09/23 1053 CALCIUM 9.2 9.2 9.1 No results for input(s): INR, PT, PTT in the last 168 hours. No results for input(s): CK, TROPONINT in the last 168 hours. No results for input(s): POCGLU in the last 168 hours. Imaging/Studies in the Last 24 Hours: CXR IMPRESSION No pneumothorax status post placement of dual lead pacemaker. Echo Left ventricle is of normal size. Mildly increased thickness of the basal septum with no obstruction to LV outflow. Left ventricular systolic function is mildly reduced. Left ventricular ejection fraction is estimated visually at 45%, with prominent apical akinesis and some mid ventricular hypokinesis (see diagram in PDF). The right ventricular apex is akinetic. The peak right ventricular systolic pressure is 41 mmHg. There is moderate to severe functional mitral regurgitation. See report for additional findings. Compared to the TTE performed 02/07/23, RWMAs are now present and MR is more prominent. Assessment: Elena Thacker is a 77 y.o. 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 Elena was found to have significant akinesis at the cardiac apex which in the setting of her troponin elevation, may indicate Takotsubo vs embolic event vs type 1 NSTEMI (although this currently seems less likely in the setting of a cath with minimal disease a few months ago.) Given the very low likelihood of a type 1 NSTEMI in her case with a recent negative cath we will plan to treat her for Takotsubo. Will stop the heparin and nitro drips, resume her home Xarelto, and start her on metoprolol succ 25mg. Will monitor her to see how she does on the oral medications and if she's doing well she will likely be able to be discharged very soon with plan for a repeat TTE in a month to evaluate for resolution of the apical akinesis. Plan is below: #Takotsubo cardiomyopathy -Stop nitro gtt, switch to oral Imdur 30 mg daily -Start metoprolol succ 25mg daily -asa 81 -Stop amlodipine #GERD -TUMS prn #Paroxysmal atrial fibrillation -Stop heparin gtt, resume home xarelto #AV Block -s/p pacemaker -compressive dressing to prevent pocket hematoma #HTN -stop amlodipine -losartan 50 mg -metoprolol as above #HLD -rosuvastatin 40 RoutinE: - DVT ppx: xarelto - Diet: NPO diet (Give Meds) - Dispo: Likely discharge tomorrow - Code status: Attempt Cardiopulmonary Resuscitation - Inpatient Eren Lema MD, PGY-1 Cardiology S1 (Pager [phone]) 04/11/2023 Associated attestation - Chauncey Neri MD - 04/11/2023 1:08 PM EDT I have seen and examined the patient, providing langston components as outlined below. I have reviewed the resident???s above note; my evaluation of the patient is below: She is feeling better this morning. No further chest pain. We are going to taper her intravenous nitroglycerin. If she has recurrent chest pain I will add a long-acting nitrate to her regimen. She underwent cardiac catheterization just 2 months ago and had no significant obstructive disease. Her presentation is most consistent with stress cardiomyopathy. Plan is discharged on medical therapy and future echocardiogram. * Hien Palumbo MSW - 04/11/2023 8:01 AM EDT ANAND received a consult to support the patient in completing a [place] Advance Directive. Referral sent to the Office of Care Management - Outbound Sales Advisor. * Tristen Bruce MD - 04/10/2023 7:39 AM EDT Images from the original note were not included. 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 24-hour events: - 8/10 chest pain that improved to 3/10 with two doses of SL NGT. Was then started on a nitro gtt that was titrated up to 20; BP tolerated. EKG nondynamic, dual AV paced. Trops downtrended to 46 whenchecked after chest pain. - Archana reports feeling generally well however that some of her chest discomfort returned when she started eating breakfast. She states that the band-like chest pain that was present overnight that resolved with nitroglycerin has not recurred but that she has a different, esophageal/neck discomfortthat is still present/worse with eating. - PPM site is uncomfortable and under a pressure dressing however no significant difference or increase in the discomfort. Meds: Continuous Infusions: heparin (porcine) infusion 950 Units/hr (04/10/23 0605) nitroGLYcerin 20 mcg/min (04/10/23 0133) Scheduled Meds: levothyroxine 50 mcg Oral QAM losartan 50 mg Oral Daily rosuvastatin 40 mg Oral QPM amLODIPine 2.5 mg Oral Daily aspirin 81 mg Oral Daily ferrous sulfate EC 325 mg Oral Q48H PRN Meds:.heparin (porcine) infusion AND heparin (porcine) Physical Exam: Last value Range last 24 hrs Temperature Temp: 36.5 ??C (97.7 ??F) Temp: [36.5 ??C (97.7 ??F)-37.8 ??C (100 ??F)] Heart Rate Heart Rate: 65 Heart Rate: [60-71] Blood Pressure BP: 119/68 BP: (104-146)/(55-81) Respiratory Rate Resp: 20 Resp: [12-24] SpO2 SpO2: 99 % SpO2: [94 %-100 %] Intake/Output Summary (Last 24 hours) at 04/10/2023 0739 Last data filed at 04/09/2023 1200 Gross per 24 hour Intake 200 ml Output -- Net 200 ml Cumulative I/O's since admission: Patient Vitals for the past 168 hrs: Weight 04/09/232010 81.8 kg (180 lb 5.4 oz) 04/08/23 1321 81.1 kg (178 lb 11.2 oz) Admit weight: 187 lb 11.2 oz Physical exam: Gen: NAD. HEENT: Anicteric. CV: RRR. Normal S1 and S2. No M/R/G. Pacemaker in place with pressure dressing on top of wound. Pulm: clear to ascultation bilaterally in the posterior lung onofre. Abd: normoactive bowel sounds. Soft, nondistended, nontender. Ext: no edema, clubbing, or cyanosis. Pertinent Labs in the Last 24 Hours: Recent Labs 04/10/23 0517 04/09/23 0705 04/08/23 1311 WBC 6.4 5.4 5.5 HGB 13.4 13.6 14.8 HCT 39.0 39.3 44.0 PLATELET 158 154 186 Recent Labs 04/10/23 0517 04/09/23 1053 04/09/23 0705 NA 137 140 137 139 K 4.0 4.1 4.1 4.2 CL 104 107 104 107 CO2 22 24 24 25 BUN 13 9 10 10 CREATININE 0.64* 0.63* 0.67* 0.66* No results for input(s): AST, ALT, ALKPHOS, BILITOT, BILIDIR in the last 168 hours. Recent Labs 04/10/23 0517 04/09/23 1053 04/09/23 0705 CALCIUM 9.2 9.1 9.2 9.1 No results for input(s): INR, PT, PTT in the last 168 hours. No results for input(s): CK, TROPONINT in the last 168 hours. No results for input(s): POCGLU in the last 168 hours. Imaging/Studies in the Last 24 Hours: CXR IMPRESSION No pneumothorax status post placement of dual lead pacemaker. Echo Left ventricle is of normal size. Mildly increased thickness of the basal septum with no obstruction to LV outflow. Left ventricular systolic function is mildly reduced. Left ventricular ejection fraction is estimated visually at 45%, with prominent apical akinesis and some mid ventricular hypokinesis (see diagram in PDF). The right ventricular apex is akinetic. The peak right ventricular systolic pressure is 41 mmHg. There is moderate to severe functional mitral regurgitation. See report for additional findings. Compared to the TTE performed 6/12/23, RWMAs are now present and MR is more prominent. Assessment: Elena Thacker is a 77 y.o. 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 Elena was found to have significant akinesis at the cardiac apex which in the setting of her troponin elevation, may indicate Takotsubo vs embolic event vs type 1 NSTEMI (although this currently seems less likely in the setting of a cath with minimal disease a few months ago.) She has been kept michelel heparin gtt and overnight was started on a nitro gtt due to chest discomfort. It seems that she had two different types of chest pain overnight; one was described as severe and band-like over her chest that resolved with nitroglycerin and the other was more esophageal in nature, less severe, and did not resolve with NGT. Will trial Tums today to evaluate for a GERD cause of the less severe pain. Thankfully her troponin continued to downtrend even after the episode of chest pain overnight. We will keep her on the heparin gtt throughout today and re-evaluate with a focal TTE tomorrow. If her akinesis has improved this is reassuring against plaque rupture or embolic event. If her TTE remainspoor, will need to further consider cardiac cath. Plan is below: #possible NSTEMI #Possible vasospasm -patient's echo possibly consistent with stress cardiomyopathy, but in the setting of patient's chest pain and elevated trops, patient admitted to be monitored for NSTEMI -heparin gtt -asa 81 -amlodipine 2.5 mg QD -nitroglycerin gtt prn chest pain #GERD -TUMS prn #Paroxysmal atrial fibrillation -on xarelto at home, currently held until Tuesday #AV Block -s/p pacemaker -compressive dressing to prevent pocket hematoma #HTN -amlodipine 2.5 mg -losartan 50 mg #HLD -rosuvastatin 40 RoutinE: - DVT ppx: heparin gtt - Diet: Cardiac diet - Dispo: Pending clinical course - Code status: Attempt Cardiopulmonary Resuscitation - Inpatient Tristen Bruce MD, PGY-3 Cardiology S1 (Pager [phone]) 04/10/2023 Associated attestation - Delgado Sanches MD - 04/10/2023 10:20 PM EDT CARDIOLOGY ATTENDING NOTE Patient: Elena Thacker Date of Service: 04/10/2023 Date of Admission: 04/08/2023 Length of Stay Hospital Day 1 day Please see the below note by for details. I have interviewed and examined the patient independently and I concur with the assessment and plan as documented, with exceptions/additions/emphases as noted below. The case was discussed on cardiology rounds and we reviewed the plan of care withthe team and patient. 77yoM w/ PAF (on rivaroxaban), HTN, recent admission for NSTEMI with minimal non-obstructive ASCVD who was admitted for placement of PPM in the setting of intermittent higher grade AVN disease and symptomatic bradycardia. Following the procedure on Tuesday which was reportedly uncomplicated the patient had an episode of acute chest discomfort with rise in troponin. This continued to trend positivealthough the patient's symptoms ultimately resolved with APAP (but not with NTG). Given her prior history microvascular disease v vasospasm was considered primary likely etiology however her TTE performed yesterday morning shows apical akinesis and a reduced LVEFof 45%, new from prior. In this setting, in addition to coronary vasospasm, Takotsubo and coronary embolus (in the setting of holding her Xarelto for the PPM procedure) are on the differential. I discussed this with the patient. Since we cannot resume Xarelto for an additional 48 hours post -PPM and the potential diagnosis of coronaryembolus, the patient will remain admitted and be started on UFH with close monitoring in an effort to avoid pocket hematoma. I'm not sure cardiac catheterization at this time would likely be beneficial or yield more helpful information given her recent cath and that the troponin is already downtrending, however she did have recurrent NTG responsive chest pain overnight last night. Continuing medical management but did make NPO MN in case of need to proceed to cath. Discussed with patient. Attending Attestation and Certification Please see Tristen Bruce MD's note for details of the patient history of presentation and data.I have discussed, reviewed and agree with the documented History, Physical findings, Assessment andPlan of care. I have examined the patient myself and personally reviewed all studies. In addition, I certify thatI am a [facility] credentialed attending provider with admitting privileges and that the patient meets or has met medical necessity to require an inpatient IPI level of care meeting a minimum of two midnights or is on the [facility] inpatient only procedure list (status C) due to: acute myocardial infarction requiring titration of IV medication and fluid monitoring Delgado Sanches MD Cardiovascular Medicine Personal Pager [phone] 04/10/2023 10:17 PM * Neema Babin MD - 04/09/2023 2:09 PM EDT Images from the original note were not included. 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 24-hour events: -For more detailed overnight events, please see Dr. Gonzalez's H&P -troponins decreased to 84 this morning -patient's echo showed akinetic right ventricular apex, so patient was admitted, loaded with heparin, and started on heparin gtt Patient has been chest-pain free since last night without SOB. Meds: Continuous Infusions: heparin (porcine) infusion Scheduled Meds: amLODIPine 2.5 mg Oral Daily aspirin 81 mg Oral Daily heparin (porcine) 4,000 Units Intravenous Once PRN Meds:.acetaminophen, heparin (porcine) infusion AND heparin (porcine), nitroGLYcerin Physical Exam: Last value Range last 24 hrs Temperature Temp: 37.8 ??C (100 ??F) Temp: [36.3 ??C (97.3 ??F)-37.8 ??C (100 ??F)] Heart Rate Heart Rate: 61 Heart Rate: [39-69] Blood Pressure BP: 135/68 BP: (82-188)/(45-90) Respiratory Rate Resp: 16 Resp: [12-18] SpO2 SpO2: 99 % SpO2: [92 %-100 %] Intake/Output Summary (Last 24 hours) at 04/09/2023 1409 Last data filed at 04/09/2023 1200 Gross per 24 hour Intake 200 ml Output 575 ml Net -375 ml Cumulative I/O's since admission: Patient Vitals for the past 168 hrs: Weight 04/08/23 1321 81.1 kg (178 lb 11.2 oz) Admit weight: 187 lb 11.2 oz Physical exam: Gen: NAD. HEENT: Anicteric. No JVP CV: RRR. Normal S1 and S2. No M/R/G. Pacemaker. Pulm: clear to ascultation bilaterally in the posterior lung onofre. Abd: normoactive bowel sounds. Soft, nondistended, nontender. Ext: no edema, clubbing, or cyanosis. Pertinent Labs in the Last 24 Hours: Recent Labs 04/09/23 0705 04/08/23 1311 WBC 5.4 5.5 HGB 13.6 14.8 HCT 39.3 44.0 PLATELET 154 186 Recent Labs 04/09/23 1053 04/09/23 0705 04/08/23 1311 NA 140 137 139 137 K 4.1 4.1 4.2 4.2 CL 107 104 107 103 CO2 24 24 25 22 BUN 9 10 10 13 CREATININE 0.63* 0.67* 0.66* 0.69* No results for input(s): AST, ALT, ALKPHOS, BILITOT, BILIDIR in the last 168 hours. Recent Labs 04/09/23 1053 04/09/23 0705 04/08/23 1311 CALCIUM 9.1 9.2 9.1 9.6 No results for input(s): INR, PT, PTT in the last 168 hours. No results for input(s): CK, TROPONINT in the last 168 hours. No results for input(s): POCGLU in the last 168 hours. Imaging/Studies in the Last 24 Hours: CXR IMPRESSION No pneumothorax status post placement of dual lead pacemaker. Echo Left ventricle is of normal size. Mildly increased thickness of the basal septum with no obstruction to LV outflow. Left ventricular systolic function is mildly reduced. Left ventricular ejection fraction is estimated visually at 45%, with prominent apical akinesis and some mid ventricular hypokinesis (see diagram in PDF). The right ventricular apex is akinetic. The peak right ventricular systolic pressure is 41 mmHg. There is moderate to severe functional mitral regurgitation. See report for additional findings. Compared to the TTE performed 02/07/23, RWMAs are now present and MR is more prominent. Assessment: Elena Thacker is a 77 y.o. 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 Patient was found to have an akinetic apex on echo, concerning for Type 2 NSTEMI in the setting of patient's known MINOCA. Patient was started on heparin drip and will be admitted for further monitoring Plan is below: #possible NSTEMI #Possible vasospasm -patient's echo possibly consistent with stress cardiomyopathy, but in the setting of patient's chest pain and elevated trops, patient admitted to be monitored for NSTEMI -heparin gtt -asa 81 -amlodipine 2.5 mg QD #Paroxysmal atrial fibrillation -on xarelto at home, currently being held until Tuesday #AV Block -s/p pacemaker -compressive dressing to prevent pocket hematoma #HTN -amlodipine 2.5 mg -losartan 50 mg #HLD -rosuvastatin 40 RoutinE: - DVT ppx: heparin gtt - Diet: Cardiac diet - Dispo: Pending clinical course - Code status: Attempt Cardiopulmonary Resuscitation - Inpatient Neema Babin MD, PGY-1 Cardiology S 1 (Pager [phone]) 04/09/2023 Associated attestation - Delgado Sanches MD - 04/09/2023 10:42 PM EDT CARDIOLOGY ATTENDING NOTE Patient: Elena Thacker Date of Service: 04/09/2023 Date of Admission: 04/08/2023 Length of Stay Hospital Day 0 days Please see the below note by Dr. Babin for details. I have interviewed and examined the patient independently and I concur with the assessment and plan as documented, with exceptions/additions/emphases as noted below. The case was discussed on cardiology rounds and we reviewed the plan of care with the team and patient. Please see my attestation of Dr. Gonzalez's H&P from earlier today for details of my impression. Attending Attestation and Certification Please see Neema Babin MD's note for details of the patient history of presentation and data.I have discussed, reviewed and agree with the documented History, Physical findings, Assessment andPlan of care. I have examined the patient myself and personally reviewed all studies. In addition, I certify thatI am a D-H credentialed attending provider with admitting privileges and that the patient meets or has met medical necessity to require an inpatient IPI level of care meeting a minimum of two midnights or is on the [facility] inpatient only procedure list (status C) due to: acute myocardial infarction requiring titration of IV medication and fluid monitoring Delgado Sanches MD Cardiovascular Medicine Personal Pager [phone] 04/09/2023 10:41 PM * Bradley Krishnan PA - 04/09/2023 8:21 AM EDT Patient Name: Elena Thacker Patient Age: 77 y.o. Birthdate: 1945 Admit date: 04/08/2023 Attending Physician: Delgado Sanches MD Cardiac Electrophysiology Post-Implant Device Interrogation Elena Thacker [id number] 04/09/2023 History: Elena Thacker is a 77 y.o. female with a history of symptomatic bradycardia andintermittent high grade AV block, who is POD#1 of a left sided dual lead [employer] pacemaker implantation. During the procedure she developed some right arm pain that migrated to her anteriorchest and back. Initially this was thought to be secondary to procedural positioning, however it did not resolve with repositioning and felt to her, to be similar to that pain which prompted her January2023 admission for [facility]. LHC at that time showed very mild non-obstructive CAD. Evaluation of cardiac enzymes following pacemaker implantation showed elevated troponins(peak 113 on 04/09). She was given SL NTG without significant relief. Echocardiogram was negative for pericardial effusion or suggestion of lead perforation or dislodgement. Her pain subsided and on myevaluation this morning she is pain free. Physical Exam: Vitals: 04/09/23 0425 04/09/23 0550 04/09/23 0644 04/09/23 0745 BP: 132/63 139/67 139/67 BP Location (NBP): Right arm Patient Position: Lying Pulse: 61 62 60 61 Resp: 15 Temp: 36.6 ??C (97.9 ??F) 36.8 ??C (98.2 ??F) TempSrc: Oral Oral SpO2: 97% 96% 97% Weight: Height: General- No acute distress, laying comfortably in bed. Skin- Pocket incision is CDI. No hematoma; Mepilex AG(silver) dressing in place. Cardiovascular- S1/S2 regular rate and rhythm. No murmur. Lungs- Clear to auscultation bilaterally Neuro- A&Ox3 Device Interrogation: Vessel Slag Worker Model # Serial # Generator [employer] [id number] Atrial Lead [employer] [id number] Ventricular Lead [employer] [id number] DDDR @ 60/130/130 AP 90%; COLOR MAKER DYER 98% Battery and Leads Voltage: -- Status: ED Magnet Rate: 100bpm Charge Time: n/a Impedances (ohms) Sensing (mV) Thresholds HV RA RV LV RA RV LV RA RV LV n/a 534 733 n/a 1.9 None above 35 -- 0.5V @ 0.4ms 0.5V @ 0.4ms -- POD#1 CXR: 04/09/2023 Left sided dual lead pacemaker; good lead position; no pneumothorax Impression: 77 y.o. female who is s/p left sided dual lead [employer] pacemaker implantation for sinus node dysfunction and intermittent high grade AV heart block. During the procedure she developed rightsided arm discomfort, anterior chest pain and back pain not relieved with repositioning. Echocardiogram showed normal lead positioning and no effusion. CXR reassuring for normal lead positioning and no acute pulmonary process or suggestion of pericardial effusion. Troponin was found to be elevated, though chest pain eventually resolved. - Appropriate device function post-implant - CXR negative for post-implant complications - Iterative programming changes for device evaluation Plan: 1. Reviewed standard post-implant discharge instructions (see patient instructions) including arm restrictions, wound care, bathing, and driving 2. EP service will schedule follow up in device clinic for wound/device check in ~10 days 3. Remote transmitter will be mailed or issued at follow up visit. 4. Recommend resuming rivaroxaban anticoagulation ~72hrs post implant(TuesdayApril 11 PM). 5. If anticoagulation such as heparin is indicated in the course of chest pain evaluation, will need to monitor fresh device implant site for evidence of hematoma. 6. Please feel free to contact EP Service (#[phone]), if additional issues arise, otherwise, EP signing off. Provider: MARGARITA Simmons EP Consult attending physician: Javi Quinteros MD EP Consult positional pager #[phone](EPDE) EP Device interrogation positional pager # [phone] Associated attestation - Tae Quinteros MD - 04/09/2023 11:21 AM EDT Cardiac Electrophysiology Attending Addendum: The patient was seen, interviewed and examined by me, and Bradley Krishnan's note above was reviewed by me and agreed with. 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 I am happy she has not needed heparin. Pocket appears dry / benign / no hematoma. Device interrogation WNL as is post-implant CXR. Agree w/ plans to treat w/ a dihydropyradine calcium channel donnell such as amlodipine. Can also now beta-blockerw /o concern for bardycardia. Please resume Xarelto Wednesday 04/11 PM. Device clinic wound check in ~ 10 days. Will sign off for EP. Tae Quinteros MD, PhD, LOCATED [facility]IN [facility] Cardiac Electrophysiology documented in this encounter H&P Notes * Yu Gonzalez MD - 04/09/2023 3:27 AM EDT Images from the original note were not included. Cardiology H&P Patient info: Name: Elena Thacker : 1945 PCP: Vicenta Ndiaye APRN PCP phone number: [phone] Date of Admission: 04/08/2023 ( Hospital Day 0 days ) Attending:Delgado Sanches MD ID: 77 yo woman with a history of paroxysmal atrial fibrillation on Xarelto, intermittent AV conductiondisease, hypertension, hypothyroidism on Synthroid, recent admission for NSTEMI in 01/2023 with concern for MINOCA (cath showed nonobstructive disease) who presented for elective placement of a left sided dual chamber transvenous pacemaker c/b chest pain and troponin elevation. No past medical history on file. Patient Active Problem List Diagnosis ','Pacemaker Troponin level elevated NSTEMI (non-ST elevated myocardial infarction) Atrial fibrillation Hypertension Hypothyroidism HPI: 77 yo woman with a history of paroxysmal atrial fibrillation on Xarelto, intermittent AV conductiondisease, hypertension, hypothyroidism on Synthroid, recent admission for NSTEMI in 01/2023 with concern for MINOCA (cath showed nonobstructive disease) who presented for elective placement of a left sided dual chamber transvenous pacemaker for a history of symptomatic bradycardia and evidence of high-grade conduction block on recent heart rate monitor. This was performed on 04/08. Electrophysiologyrequested transfer to the cardiology service for work-up of her chest pain and elevated troponins. She underwent an uncomplicated dual-chamber pacemaker placement by Dr. Alvarado on 04/08. This was left-sided. After procedure was complete, sensing was 3.3 mV in atrium, 12.4 V in the ventricle. Thresholds were good, 0.6 at 0.4 ms in atrium, 0.5 at 0.4 ms in the ventricle, impedance of 558 in the atrium, impedance of 708 in the ventricle. The patient is set at DDDR at 60. When I interviewed the patient, she reported that she started having right arm pain during the procedure. They readjusted her on the EP lab table, without too much improvement in her discomfort. She then states she had a moderate of other discomfort after the procedure including some mild chest discomfort in the center/right side of her chest, as well as her back and scapula. She reports that shedid not feel like this was near the pacemaker incision site. She received 4 doses of sublingual nitro from 7 PM to 9 PM with only mild improvement of her symptoms. She then received Tylenol 650 mg around 1 AM on 04/09 with resolution of her discomfort. She has no complaints when I saw her. Her EKG in the evening on 04/08 showed ventricular paced rhythm with occasional AV dual paced complexes/PVCs, with a rate of 71. Her high-sensitivity troponin trended from 28 to 100. Patient reports that her discomfort felt similar to her admission on 01/2023. At that time her troponin I trended from86 to 196. She received an echo showing an LVEF of 60%, mild to moderate MR. Left heart cath without evidence of obstructive disease. Therefore an unclear cause, possible vasospastic/microvascular/endothelial dysfunction. She was discharged on aspirin, losartan 50, nitro as needed as new medications. I performed a bedside echo showing LV low-normal function, inadequate apex visualization possibly hypokinetic, normal rv function, moderate mitral regurgitation, mild to moderate TR. No epicardial effusion. Review of Systems (positives in bold) General: chills, fatigue, fever or night sweats Eye: blurry vision, double vision, loss of vision or photophobia HENT: headaches, sore throat or vertigo Heme/Lymph: Bleeding/bruising, blood clots, jaundice, pallor or swollen lymph nodes Resp: cough, hemoptysis, orthopnea, shortness of breath or wheezing Cardio: chest pain, dyspnea on exertion, edema, loss of consciousness, palpitations, paroxysmal nocturnal dyspnea or shortness of breath Gastro: abdominal pain, blood in stools, constipation, diarrhea, heartburn, hematemesis, melena or nausea/vomiting : dysuria, hematuria or urinary frequency/urgency MSK: joint pain, joint stiffness, joint swelling, muscle pain or muscular weakness Neuro:dizziness, gait disturbance, impaired coordination/balance, memory loss, numbness/tingling, seizures, speech problems, tremors or visual changes Derm: lumps or rash PMH No past medical history on file. PSH Past Surgical History: Procedure Laterality Date PRO CARDIOVERSION ELECTIVE ARRHYTHMIA EXTERNAL N/A 07/16/2021 CARDIOVERSION-ELECTIVE (WRVU 2.25) performed by Janett Vidal MD at [facility] MAIN OR Family History No family history on file. Social History Social History Socioeconomic History Marital status: Spouse name: Not on file Number of children: Not on file Years of education: Not on file Highest education level: Not on file Occupational History Not on file Tobacco Use Smoking status: Former Passive exposure: Past Smokeless tobacco: Never Tobacco comments: college student for a few months Vaping Use Vaping Use: Never used Substance and Sexual Activity Alcohol use: Yes Alcohol/week: 3.0 standard drinks Types: 3 Glasses of wine per week Drug use: Never Sexual activity: Yes Partners: Male Other Topics Concern Not on file Social History Narrative Not on file Social Determinants of Health Financial Resource Strain: Not on file Food Insecurity: Not on file Transportation Needs: Not on file Physical Activity: Not on file Housing Stability: Not on file Allergies: Allergies Allergen Reactions Diflunisal Ezetimibe Quinapril Meds acetaminophen metoproloL tartrate 25 mg Oral Q6H LEAH acetaminophen, iohexoL, sodium chloride 0.9%, nitroGLYcerin sodium chloride 0.9% 200 mL/hr (04/08/23 1636) Objective: Vitals Last value Range last 24 hrs Temperature Temp: 36.5 ??C (97.7 ??F) Temp: [36.3 ??C (97.3 ??F)-36.5 ??C (97.7 ??F)] Heart Rate Heart Rate: 62 Heart Rate: [39-69] Blood Pressure BP: 129/62 BP: (82-188)/(45-90) Art Line BP BP (Arterial Line): -- MAP (NBP): [58 mmHg-109 mmHg] Respiratory Rate Resp: 18 Resp: [12-18] SpO2 SpO2: 94 % SpO2: [92 %-100 %] Oxygen Delivery Oxygen Therapy O2 Device: None (Room air) Intake/Output Summary (Last 24 hours) at 04/09/2023 0327 Last data filed at 04/09/2023 0015 Gross per 24 hour Intake -- Output 300 ml Net -300 ml Patient Vitals for the past 168 hrs: Weight 04/08/23 1321 81.1 kg (178 lb 11.2 oz) Admit wt: 81.06 kg Physical Exam: Gen: in bed in NAD. HEENT: anicteric, EOMI intact, CV: RRR, no murmurs/rubs/gallops. Pacemaker pocket clean dry and intact without redness or drainage Resp: CTAB, no crackles/wheezes/ronchi, normal work of breathing Abd: normal bowel sounds, soft, non-tender to palpation, no rebound or guarding Ext: 2+ distal pulses, no pedal edema Neuro: no focal deficits noted, CN II-XII grossly intact, moves all extremities spontaneously Psych: cooperative. Skin: no rashes, lesions, or ulcerations noted Lines/Drains/Airways Lines: Peripheral IV Line - Single Lumen 02/06/23 1000 median cubital vein (antecubital fossa), right 20 gauge (Active) Peripheral IV Line - Single Lumen 04/08/23 1412 basilic vein (medial side of arm), left 20 gauge;1 in length (Active) Indication/Daily Review of Necessity medication therapy intermittent;fluid therapy continuous 04/08/232099 Site Preparation/Maintenance dressing: dry and intact 04/08/231999 Securement catheter stabilization device, secured with 04/08/232099 Patency/Maintenance infusing 04/08/232099 Phlebitis 0-->no symptoms 04/09/23136 Infiltration 0-->no symptoms 04/09/23136 Site Signs/Symptoms no drainage;no redness;no swelling;no warmth;no pain;no palpable cord;no streakformation 04/08/231999 Labs: Recent Labs 04/08/23 1311 WBC 5.5 HGB 14.8 HCT 44.0 PLATELET 186 MCV 92.1 Recent Labs 04/08/23 1311 NA 137 CL 103 CO2 22 K 4.2 CALCIUM 9.6 BUN 13 CREATININE 0.69* LFTs No results for input(s): PROT, ALBUMIN, AST, ALT, ALKPHOS, BILITOT, BILIDIR in the last 168 hours. Coags No results for input(s): INR, PT, PTT, FIBRINOGEN, DDIMER in the last 168 hours. Invalid input(s): THROMBIN TIME Cardiac Enzymes No results for input(s): CK, TROPONINT, PROBNP in the last 168 hours. Endocrine Recent Labs 02/06/23 1710 TSH 1.95 No results for input(s): POCGLU in the last 168 hours. Heme No results for input(s): LDH, HAPTOGLOBIN, URICACID in the last 168 hours. ABG (Arterial Blood Gas) No results found for: PHART, PO2ART, WGO9HKT, JXT5LMD Microbiology: Microbiology Results (Last 30 days) No results found for the last 720 hours. Imaging: No results found for this visit on 04/08/23. Medications Scheduled Meds: acetaminophen metoproloL tartrate 25 mg Oral Q6H LEAH Continuous Infusions: sodium chloride 0.9% 200 mL/hr (04/08/23 1636) PRN Meds:.acetaminophen, iohexoL, sodium chloride 0.9%, nitroGLYcerin EKG 04/08 Echo 02/07/2023 Interpretation Summary Left ventricular systolic function is normal. The left ventricular ejection fraction is 60% by Smith's biplane. There are no segmental wall motion abnormalities. The left atrium is mildly dilated. There is mild to moderate mitral regurgitation. Other details as noted below. Cardiac catheterization 02/07/2023 Hemodynamics: Left Heart Pressures Resting: Syst Diast EDP a v m Ao 131 61 90 LV 134 10 Coronary Angiography: Dominance: Right Left Main The left main was normal, free of disease. Left Anterior Descending There was mild diffuse (<=25% stenosis) disease of the entire vessel segment of the left anterior descending artery (LAD). Left Circumflex The left circumflex (LCX) was normal, free of disease. Right Coronary Artery The right coronary artery (RCA) was normal, free of disease. Vascular Access: Vascular Access Management: Mechanical Compression of the right radial artery access site was performed. Conclusions: * Nonobstructive coronary artery disease Assessment & Plan: Elena Thacker is a 77 y.o. female with a history of paroxysmal atrial fibrillation on Xarelto, intermittent AV conduction disease, hypertension, hypothyroidism on Synthroid, recent admission for NSTEMI in 01/2023 with concern for MINOCA (cath showed nonobstructive disease) who presented for elective placement of a left sided dual chamber transvenous pacemaker. This was an uncomplicated procedure on 04/08, however she started having some right shoulder and arm pain during the procedure.This discomfort persisted with other components including mild central chest pressure, scapular pain, back pain. This also did not appear to be related to incisional site discomfort at the pacemaker pocket. EP has requested transfer to the cardiology service for work-up of her chest pain as well delonte troponin elevation. Her first high-sensitivity troponin was 28, this trended to 100. She received several dose of nitro without too much improvement. She did get Tylenol which resolved her discomfort. I personally viewed the cardiac catheterization from 01/2023. There does seem to be sluggish flow, appears the most obvious in the RCA, possibly KARAN II. There is no obstructive disease. Differential includes MINOCA: coronary vasospasm, microvascular disease, or noncardiac chest pain. I do not thinkcuate has scad given the less acute nature of her symptoms and relief with acetaminophen. Now that she has a pacemaker, we can add on beta-blockade for her, will do 12.5 mg tartrate every 6 hours and titrate up as needed, convert to succinate at time of discharge. She will continue her aspirin and rosuvastatin for now. I do not feel inclined to start heparin drip for her right now, and this may complicate her immediate post pacemaker pocket. And she is chest pain-free, no pericardial effusion. Chest pain Troponin elevation Concern for MINOCA, or noncardiac troponin ablation --Differential also includes vasospasm, microvascular disease given slow KARAN flow in the RCA. Lessconcern for scad given less acute start -- Hold off on heparin drip for now. Continue to trend high-sensitivity troponin. First was 28. Second was 100. Recheck in the morning -- Continue aspirin -- Continue statin -- Metoprolol 12.5-6 continue medication. -- Nitroglycerin sublingual did not help her discomfort. -- Pressure control -- F/u echo Paroxysmal atrial fibrillation -- Restart Xarelto 72 hours from procedure, which would be Wednesday 04/11 in late afternoon -- Metoprolol stopped about S/p pacemaker -- History of interrogation by EP in the morning. Chest x-ray AP and lateral Hypertension -- Continue losartan #Routine Diet: NPO for CXR, then feed cardiac diet DVT Prophylaxis: none due to ppm, SCDs GI Prophylaxis: none Code Status: Attempt Cardiopulmonary Resuscitation - Inpatient Dispo: Trend high-sensitivity troponin to peak, resolution chest pain, checked by pressed or blown glass worker I personally performed 70 minutes of aggregate critical care time exclusive of procedures and teaching during this visit. This includes time spent during direct patient evaluation and reassessment, interpreting diagnostic tests, directing life and/or organ supporting interventions, and documentation. Yu Gonzalez MD [facility] [place] Decorator Inspector, PGY-6 Pager #[phone] Can Epic message me 7AM-4PM on weekdays for non-urgent matters Associated attestation - Delgado Sanches MD - 04/09/2023 3:26 PM EDT CARDIOLOGY ATTENDING NOTE Patient: Elena Thacker Date of Service: 04/09/2023 Date of Admission: 04/08/2023 Length of Stay Hospital Day 0 days Please see the below note by Dr. Gonzalez for details. I have interviewed and examined the patient independently and I concur with the assessment and plan as documented, with exceptions/additions/emphasesas noted below. The case was discussed on cardiology rounds and we reviewed the plan of care with the team and patient. 77yoM w/ PAF (on rivaroxaban), HTN, recent admission for NSTEMI with minimal non-obstructive ASCVD who was admitted for placement of PPM in the setting of intermittent higher grade AVN disease and symptomatic bradycardia. Following the procedure yesterday which was reportedly uncomplicated the patient had an episode of acute chest discomfort with rise in troponin. This continued to trend positivealthough the patient's symptoms ultimately resolved with APAP (but not with NTG). Given her prior history microvascular disease v vasospasm was considered primary likely etiology however her TTE performed this morning shows apical akinesis and a reduced LVEf of 45%, new from prior. In this setting,in addition to coronary vasospasm, Takotsubo and coronary embolus (in the setting of holding her Xarelto for the PPM procedure) are on the differential. I discussed this with the patient. Since we cannot resume Xarelto for an additional 48 hours post -PPM and the potential diagnosis of coronary embolus, the patient will remain admitted and be started on UFH with close monitoring in an effort to avoid pocket hematoma. I'm not sure cardiac catheterization at this time would likely be beneficial or yield more helpful information given her recent cath and that the troponin is already downtrending. We can follow her clinical course and reconsider as needed. She is in agreement. Family history is norable for VT in her father and subaortic stenosis in her mother. She is a remote minimal former smoker. In addition to the above, PMH also includes hypothyroidism. My exam agrees with that documented by Dr. Gonzalez with the exception that I hear a 1/6 murmur at the base. I personally reviewed the patient's ehcocardiogram and communicated with the EP team over the course of the day. Per Dr. Quinteros's recommendation to decrease the risk of pocket hematoma, will have pressure dressing applied to her pocket site. Her device interrogation and CXR show appropriate placement and function. Attending Attestation and Certification Please see Yu Gonzalez MD's note for details of the patient history of presentation and data. I have discussed, reviewed and agree with the documented History, Physical findings, Assessment and Plan of care. I have examined the patient myself and personally reviewed all studies. In addition, I certify thatI am a D-H credentialed attending provider with admitting privileges and that the patient meets or has met medical necessity to require an inpatient IPI level of care meeting a minimum of two midnights or is on the [facility] inpatient only procedure list (status C) due to: acute myocardial infarction requiring titration of IV medication and fluid monitoring Delgado Sanches MD Cardiovascular Medicine Personal Pager [phone] 04/09/2023 3:15 PM * Robin Alvarado MD - 04/08/2023 2:35 PM EDT EP PRE-PROCEDURE H&P Attending Provider: Robin Alvarado MD Planned Procedure: Dual chamber transvenous pacemaker Anesthesia: Moderate conscious sedation will be used. Mallampati Class II ASA Class II Anticoagulation status: On chronic anticoagulation with Xarelto for a history of Lab Results Component Value Date INR 1.5 02/06/2023 Infection risk & Prophylaxis: No cough, no fevers, no chills. Post-op Plan: Admit for observation Interval history: Elena Thacker is a 77 y.o. woman who presents for elective placement of a left sided dual chamber transvenous pacemaker for a history of symptomatic bradycardia and evidence of high-grade conduction block on recent heart rate monitor. Physical Exam: Well appearing with no acute symptoms Normal jugular venous pulse Moist mucosae without lesions Regular S1/S2 with no murmur Chest wall and shoulders without deformity, prior trauma, radiation or surgery Lungs are clear throughout Palpable femoral pulses bilaterally No peripheral edema, no open wounds or ulcers No current facility-administered medications on file prior to encounter. Current Outpatient Medications on File Prior to Encounter Medication Sig Dispense Refill ferrous sulfate (FeroSul) 325 mg (65 mg iron) tablet Take 325 mg by mouth every other day. rosuvastatin (Crestor) 40 mg tablet Take 1 tablet by mouth every evening. 90 tablet 3 aspirin 81 mg chewable tablet Take 81 mg by mouth daily. 30 tablet 3 losartan (Cozaar) 50 mg tablet Take 1 tablet by mouth daily. 30 tablet 3 levothyroxine (Synthroid) 50 mcg tablet Take 1 tablet by mouth daily. 30 tablet 3 multivitamin (THERAGRAN) Tablet Take 1 tablet by mouth daily. rivaroxaban (Xarelto) 20 mg Tablet Daily nitroGLYcerin (Nitrostat) 0.[address] 1 tablet under the tongue every 5 minutes as needed for Chest pain. 90 tablet 12 Lab Results Component Value Date WBC 5.5 04/08/2023 HGB 14.8 04/08/2023 HCT 44.0 04/08/2023 MCV 92.1 04/08/2023 PLATELET 186 04/08/2023 Lab Results Component Value Date NA 137 04/08/2023 K 4.2 04/08/2023 CL 103 04/08/2023 CO2 22 04/08/2023 BUN 13 04/08/2023 CREATININE 0.69 (L) 04/08/2023 GLUCOSE 100 04/08/2023 CALCIUM 9.6 04/08/2023 ESTGFR 89 04/08/2023 Lab Results Component Value Date MAGNESIUM 0.91 02/07/2023 Background and rationale for the procedure: The risks and benefits of the procedure were discussed in detail in the presence of her Jaime. She wishes to proceed. I met with the patient today and independently confirmed the history, physical exam, and testing. Ipersonally reviewed and interpreted the available ECGs and additional cardiac testing (echo), as well as the labs. I agree with the detailed management plan as written in the fellow note today. I discussed this plan with the patient, who is also in agreement. Dr. Robin Alvarado, electrophysiology attending ([id number]) documented in this encounter Miscellaneous Notes * Plan of Care - Melba Haro RN - 04/12/2023 12:52 PM EDT OUTCOME EVALUATION NOTE: OUTCOME SUMMARY: Elena Thacker was admitted for pacemaker placement and angina. She is A&O x4, VSS, and no c/o pain. Pt is discharging home today. She is V paced, and chest pain has resolved. Pt ambulated in the hallways with no difficulty. Pt's Ivs and telemetry have been discontinued. Discharge teaching has been completed and the Pt shows understanding. Pt was wheeled in wheel chair to discharge nanette shi. PLAN MOVING FORWARD: Will follow up with outpatient cardiology. CPG GOAL OUTCOME EVALUATION: Problem: Adult Inpatient Plan of Care Goal: Plan of Care Review Outcome: Outcome (s) achieved Goal: Patient-Specific Goal (Individualized) Outcome: Outcome (s) achieved Goal: Absence of Hospital-Acquired Illness or Injury Outcome: Outcome (s) achieved Goal: Optimal Comfort and Wellbeing Outcome: Outcome (s) achieved Goal: Readiness for Transition of Care Outcome: Outcome (s) achieved Problem: Chest Pain Goal: Resolution of Chest Pain Symptoms Outcome: Outcome (s) achieved Problem: Fall Injury Risk Goal: Absence of Fall and Fall-Related Injury Outcome: Outcome (s) achieved * Care Management Discharge - Shane Fang RN - 04/12/2023 11:19 AM EDT CARE MANAGEMENT FINAL DISCHARGE NOTE Chart reviewed, care reviewed with primary team and at interdisciplinary rounds. Patient is medically ready for discharge to home. Needs for Transition of Care: per discharge instructions Plan for discharge is: Home w/o Services Outpatient Agency/Support Group Needs: None Agency Referrals & Follow-up Care: per discharge instructions Transportation: family or friend will provide Wheelchair van/Ambulance? No Functional status prior to admission: Independent Home Environment: Others in the home: spouse. Current Living Arrangements: home/apartment/condo. Accessibility Concerns:2 story home 3 [place]; no accessibility concerns. Current Functional Ability: Independent DME used at home: grab bar - tub/shower DME Needed at Discharge: N/A Patient is insured through: Primary Insurance: [employer] MANAGED MEDICARE Payor: AETNA MANAGED MEDICARE / Plan: AETNA AC MANAGED MEDICARE / Product Type: *No Product type* / Secondary Insurance: N/A Prescription Coverage: Yes (AETNA Managed Medicare) This plan was formulated with input from patient and team. All are in agreement with plan. * Plan of Care - Kari Armstrong RN - 04/12/2023 7:33 AM EDT Problem: Adult Inpatient Plan of Care Goal: Absence of Hospital-Acquired Illness or Injury Outcome: Ongoing (Interventions Implemented as Appropriate) Problem: Chest Pain Goal: Resolution of Chest Pain Symptoms Outcome: Ongoing (Interventions Implemented as Appropriate) Problem: Fall Injury Risk Goal: Absence of Fall and Fall-Related Injury Outcome: Ongoing (Interventions Implemented as Appropriate) Problem: Adjustment to Illness (Cardiac Rhythm Management Device) Goal: Optimal Adjustment to Device Presence Outcome: Ongoing (Interventions Implemented as Appropriate) Problem: Adult Inpatient Plan of Care Goal: Absence of Hospital-Acquired Illness or Injury Outcome: Ongoing (Interventions Implemented as Appropriate) * Plan of Care - Melba Haro RN - 04/11/2023 5:02 PM EDT OUTCOME EVALUATION NOTE: OUTCOME SUMMARY: Elena Thacker was admitted 04/08/23 for elective placement of a pacemaker. Pt is A&O x4, no c/o pain, ambulated halls multiple times this shift. Nitro gtt and heparin gtt stopped. Pt started back on Xarelto. VSS. RA. PLAN MOVING FORWARD: Discharge home tomorrow. CPG GOAL OUTCOME EVALUATION: Problem: Adult Inpatient Plan of Care Goal: Plan of Care Review Outcome: Ongoing (Interventions Implemented as Appropriate) Goal: Patient-Specific Goal (Individualized) Outcome: Ongoing (Interventions Implemented as Appropriate) Goal: Absence of Hospital-Acquired Illness or Injury Outcome: Ongoing (Interventions Implemented as Appropriate) Goal: Optimal Comfort and Wellbeing Outcome: Ongoing (Interventions Implemented as Appropriate) Goal: Readiness for Transition of Care Outcome: Ongoing (Interventions Implemented as Appropriate) Problem: Chest Pain Goal: Resolution of Chest Pain Symptoms Outcome: Ongoing (Interventions Implemented as Appropriate) Problem: Respiratory Compromise (Cardiac Rhythm Management Device) Goal: Effective Oxygenation and Ventilation Outcome: Ongoing (Interventions Implemented as Appropriate) Problem: Pain (Cardiac Rhythm Management Device) Goal: Acceptable Pain Level Outcome: Ongoing (Interventions Implemented as Appropriate) Problem: Infection (Cardiac Rhythm Management Device) Goal: Absence of Infection Signs and Symptoms Outcome: Ongoing (Interventions Implemented as Appropriate) * Initial Assessments - Shane Fang RN - 04/11/2023 1:23 PM EDT Office of Care Management Initial Assessment Shane Fang RN reviewed record and discussed patient with Care Team. Source of Information: Team, bedside nurse, medical record, and Patient Introduced self/reviewed role; services accepted. Admitted From: Home Reason for Hospitalization: pacemaker scheduled to be placed Covid Vaccination Status: 1st, 2nd & booster Last COVID test: Past medical History: No past medical history on file. Hospitalizations Within the Past 30 Days: no previous admission in last 30 days Current Decision-Making Capacity: Self If AD's have not been completed the following surrogate would be surrogate decision maker per [place] decision making law. (Only good for 180 days) Any patient receiving care in [place] must abide by [place] law. The hierarchy for surrogate decision making is: (a) Patient???s spouse or civil union partner unless there is a divorce proceeding, separation agreement, or restraining order limiting that person???s relationship with the patient. Leon Keith (spouse) is [facility] [phone] (b) Any adult son or daughter of the patient. (c) Either parent of the patient. (d) Any adult brother or sister of the patient. (e) Any adult grandchild of the patient. (f) Any grandparent of the patient. (g) Any adult aunt, uncle, niece, or nephew of the patient. (h) A close friend of the patient. (i) The agent with financial power of privacy attorney or a conservator appointed in accordance with [place] 464-[place]. (j) The guardian of the patient???s estate. Advance Care Planning: Attempt Cardiopulmonary Resuscitation - Inpatient <no information> -Advanced Directive: No, need to discuss (Referral to RS for AD; spouse SDM) Current Coping/Education/Information Needs: pending hospital course Current Functional Ability: Independent Functional Status Prior to Admission: Independent Prior ADLs & IADLs: Independent with all ADLs & IADLs Home Environment: Others in the home: spouse. Current Living Arrangements: home/apartment/condo. Accessibility Concerns:2 story home 3 [place]; no accessibility concerns. Resource / Environmental Concerns: Resource/Environmental Concerns: none Current DME: grab bar - tub/shower Home Address confirmed as: [address] [place] [id number] Social & Family Supports: All names listed below confirmed with patient as current and correct Extended Emergency Contact Information Primary Emergency Contact: Leon Keith Address: [address] [place] [id number] [place] [address] Mobile Relation: Other Current Care Provided by: self Provides Primary Care For: no one Caregiver if needed: spouse Quality of Family relationships: involved, supportive Community Resources being provided currently: none Behavioral Health History: denies Substance Use/Abuse confirmed: Social History Tobacco Use Smoking Status Former Passive exposure: Past Smokeless Tobacco Never Tobacco 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 AETNA Managed Medicare) ; Prescription Coverage: Yes (AETNA Managed Medicare) Preferred Pharmacy: [facility] - [place], [place] - [address] [facility] [address] [facility] [address] [place] Status: Patient is a : No Primary Care Provider confirmed: Vicenta Ndiaye, [facility] [phone] Patient/Caregiver Goals of Treatment: home with spouse when MR. Potential Needs for Transition of Care: none Agency Referrals: Not Applicable Transportation: no concerns Transportation Anticipated: family or friend will provide Concerns to be Addressed: no discharge needs identified, denies needs/concerns at this time Assessment: Patient is admitted to Cardiology S1 service for NSTEMI Plan: per IDR (04/11), stopping heparin and nitro gtt; resuming home Xarelto and starting oral metoprolol; if pt does well on oral medications, plan for d/c tomorrow with no needs. A member of the Care Management team will continue to monitor progress, follow for continuity of care and assist with transition of care planning. * Plan of Care - Landy Smith RN - 04/10/2023 7:46 PM EDT Problem: Adult Inpatient Plan of Care Goal: Plan of Care Review Outcome: Ongoing (Interventions Implemented as Appropriate) Goal: Patient-Specific Goal (Individualized) Outcome: Ongoing (Interventions Implemented as Appropriate) Goal: Absence of Hospital-Acquired Illness or Injury Outcome: Ongoing (Interventions Implemented as Appropriate) Goal: Optimal Comfort and Wellbeing Outcome: Ongoing (Interventions Implemented as Appropriate) Goal: Readiness for Transition of Care Outcome: Ongoing (Interventions Implemented as Appropriate) Problem: Chest Pain Goal: Resolution of Chest Pain Symptoms Outcome: Ongoing (Interventions Implemented as Appropriate) Problem: Fall Injury Risk Goal: Absence of Fall and Fall-Related Injury Outcome: Ongoing (Interventions Implemented as Appropriate) Problem: Adjustment to Illness (Cardiac Rhythm Management Device) Goal: Optimal Adjustment to Device Presence Outcome: Ongoing (Interventions Implemented as Appropriate) Problem: Bleeding (Cardiac Rhythm Management Device) Goal: Absence of Bleeding Outcome: Ongoing (Interventions Implemented as Appropriate) Problem: Device-Related Complication Risk (Cardiac Rhythm Management Device) Goal: Effective Device Function Outcome: Ongoing (Interventions Implemented as Appropriate) Problem: Infection (Cardiac Rhythm Management Device) Goal: Absence of Infection Signs and Symptoms Outcome: Ongoing (Interventions Implemented as Appropriate) Problem: Pain (Cardiac Rhythm Management Device) Goal: Acceptable Pain Level Outcome: Ongoing (Interventions Implemented as Appropriate) Problem: Respiratory Compromise (Cardiac Rhythm Management Device) Goal: Effective Oxygenation and Ventilation Outcome: Ongoing (Interventions Implemented as Appropriate) * Plan of Care - Jeni Sunshine RN - 04/10/2023 6:42 PM EDT OUTCOME EVALUATION NOTE: OUTCOME SUMMARY: Pt A/Ox4. Paced on tele, see saved strips. Endorsed 3/10 squeezing, muscle spasm of chest, provider at bedside. Pain resolved with ice over pacemaker site and PRN Tylenol. Pressure dressing over pacemaker site intact. IV nitro titrated to 10 mcg/min per provider. Heparin gtt. Souse at bedside during the day. PLAN MOVING FORWARD: NPO after midnight for cath CARE PLAN GOAL OUTCOME EVALUATION: Problem: Adult Inpatient Plan of Care Goal: Plan of Care Review Outcome: Ongoing (Interventions Implemented as Appropriate) Goal: Patient-Specific Goal (Individualized) Outcome: Ongoing (Interventions Implemented as Appropriate) Goal: Absence of Hospital-Acquired Illness or Injury Outcome: Ongoing (Interventions Implemented as Appropriate) Goal: Optimal Comfort and Wellbeing Outcome: Ongoing (Interventions Implemented as Appropriate) Goal: Readiness for Transition of Care Outcome: Ongoing (Interventions Implemented as Appropriate) Problem: Chest Pain Goal: Resolution of Chest Pain Symptoms Outcome: Ongoing (Interventions Implemented as Appropriate) Problem: Fall Injury Risk Goal: Absence of Fall and Fall-Related Injury Outcome: Ongoing (Interventions Implemented as Appropriate) Problem: Adjustment to Illness (Cardiac Rhythm Management Device) Goal: Optimal Adjustment to Device Presence Outcome: Ongoing (Interventions Implemented as Appropriate) Problem: Bleeding (Cardiac Rhythm Management Device) Goal: Absence of Bleeding Outcome: Unable to achieve outcome by discharge Problem: Device-Related Complication Risk (Cardiac Rhythm Management Device) Goal: Effective Device Function Outcome: Ongoing (Interventions Implemented as Appropriate) Problem: Infection (Cardiac Rhythm Management Device) Goal: Absence of Infection Signs and Symptoms Outcome: Ongoing (Interventions Implemented as Appropriate) Problem: Pain (Cardiac Rhythm Management Device) Goal: Acceptable Pain Level Outcome: Ongoing (Interventions Implemented as Appropriate) Problem: Respiratory Compromise (Cardiac Rhythm Management Device) Goal: Effective Oxygenation and Ventilation Outcome: Ongoing (Interventions Implemented as Appropriate) * Plan of Care - Landy Smith RN - 04/09/2023 8:15 PM EDT Problem: Adult Inpatient Plan of Care Goal: Plan of Care Review Outcome: Ongoing (Interventions Implemented as Appropriate) Goal: Patient-Specific Goal (Individualized) Outcome: Ongoing (Interventions Implemented as Appropriate) Goal: Absence of Hospital-Acquired Illness or Injury Outcome: Ongoing (Interventions Implemented as Appropriate) Goal: Optimal Comfort and Wellbeing Outcome: Ongoing (Interventions Implemented as Appropriate) Goal: Readiness for Transition of Care Outcome: Ongoing (Interventions Implemented as Appropriate) Problem: Chest Pain Goal: Resolution of Chest Pain Symptoms Outcome: Ongoing (Interventions Implemented as Appropriate) Problem: Fall Injury Risk Goal: Absence of Fall and Fall-Related Injury Outcome: Ongoing (Interventions Implemented as Appropriate) Problem: Adjustment to Illness (Cardiac Rhythm Management Device) Goal: Optimal Adjustment to Device Presence Outcome: Ongoing (Interventions Implemented as Appropriate) Problem: Bleeding (Cardiac Rhythm Management Device) Goal: Absence of Bleeding Outcome: Ongoing (Interventions Implemented as Appropriate) Problem: Device-Related Complication Risk (Cardiac Rhythm Management Device) Goal: Effective Device Function Outcome: Ongoing (Interventions Implemented as Appropriate) Problem: Infection (Cardiac Rhythm Management Device) Goal: Absence of Infection Signs and Symptoms Outcome: Ongoing (Interventions Implemented as Appropriate) Problem: Pain (Cardiac Rhythm Management Device) Goal: Acceptable Pain Level Outcome: Ongoing (Interventions Implemented as Appropriate) Problem: Respiratory Compromise (Cardiac Rhythm Management Device) Goal: Effective Oxygenation and Ventilation Outcome: Ongoing (Interventions Implemented as Appropriate) * Plan of Care - Jeni Sunshine RN - 04/09/2023 8:09 PM EDT OUTCOME EVALUATION NOTE: OUTCOME SUMMARY: Pt A/Ox4. AV paced on tele, see saved strips. No reports of SOB. Endorses muscle tightness with deep breathing. Provider notified. Provider at bedside, pressure dressing applied to pacemaker site prior to starting IV heparin. Site benign. at bedside. Left arm precautions maintained. PLAN MOVING FORWARD: Possible cath CARE PLAN GOAL OUTCOME EVALUATION: Problem: Adult Inpatient Plan of Care Goal: Plan of Care Review Outcome: Ongoing (Interventions Implemented as Appropriate) Problem: Adult Inpatient Plan of Care Goal: Absence of Hospital-Acquired Illness or Injury Outcome: Ongoing (Interventions Implemented as Appropriate) Problem: Adult Inpatient Plan of Care Goal: Optimal Comfort and Wellbeing Outcome: Ongoing (Interventions Implemented as Appropriate) Problem: Adult Inpatient Plan of Care Goal: Readiness for Transition of Care Outcome: Ongoing (Interventions Implemented as Appropriate) Problem: Chest Pain Goal: Resolution of Chest Pain Symptoms Outcome: Ongoing (Interventions Implemented as Appropriate) Problem: Fall Injury Risk Goal: Absence of Fall and Fall-Related Injury Outcome: Ongoing (Interventions Implemented as Appropriate) * Brief Op Note - Robin Alvarado MD - 04/08/2023 6:18 PM EDT Brief Operative Note Patient Name: Elena Thacker : [id number] MR#: [id number] Case Date: 04/08/2023 Surgeon: Surgeon(s) and Role: * Robin Alvarado MD - Primary * Marty Trejo MD - Fellow - Assisting Preoperative diagnosis: AV block [I44.30]Bradycardia [R00.1]PAF (paroxysmal atrial fibrillation) [I48.0] Postoperative diagnosis: s/p successful pacemaker implantation Procedure(s) (LRB): ELECTROPHYSIOLOGY PROCEDURE (Left) INSERT PERM PACEMAKER W\TRANSVENOUS ELECTRODES; ATRIAL & VENTRICULAR (WRVU 8.52) (N/A) Anesthesia: Anesthesia type not filed in the log. Findings: acceptable pacemaker function Complications: none Intake: Intraprocedure Crystalloid Total None Transfusion No data found in the last 1 encounters. Output: Estimated Blood Loss: Urine Output:: (no urine output recorded) Other Output: (no other output recorded) Drains: none Specimens removed during surgery: None Disposition: aroused from sedation, and taken to the recovery room in a stable condition Condition: doing well without problems Attestation: Robin Alvarado MD Case Date: 04/08/2023 I was present and I participated during the entire procedure (does not need to include opening and closing). (Please see the Surgical Encounter Summary for any Implant and Specimen details pertinent to this patient.) Surgical Infection Prevention Bundle Used? N/A documented in this encounter Plan of Treatment Upcoming Encounters Date Type Department Care Team (Late st Contact Info) Description 07/13/2024 10:00 AM EST Hospital Encounter [place] [address] Arrived Scheduled Orders Name Type Priority Associated Diagnoses Orde r Schedule EKG 12 Lead ECG Routine Chest pain, unspecified type Scheduled @ 0600 for 3 Occurrences starting 04/10/2023 until 04/12/2023, 2 completed documented as of this encounter Procedures Procedure Name Priority Date/Time Associated Diagnosis Comments EKG 12-LEAD STAT 04/12/2023 6:53 AM EDT Chest pain, unspecified type BMP W/FASTING GLUCOSE Routine 04/12/2023 3:53 AM EDT HEMOGRAM Routine 04/12/2023 3:53 AM EDT DIFFERENTIAL, AUTOMATED Routine 04/12/20 3:53 AM EDT CBC (WITH DIFF) Routine 04/12/2023 3:53 AM EDT EKG 12-LEAD Routine 04/11/2023 6:47 AM EDT Chest pain, unspecified type TSH CASCADE Routine 04/11/2023 2:44 AM EDT HEPARIN (UNFRACTIONATED) LEVEL Timed 04/11/2023 2:44 AM EDT BMP W/FASTING GLUCOSE Routine 04/11/2023 2:44 AM EDT HEMOGRAM Routine 04/11/2023 2:44 AM EDT DIFFERENTIAL, AUTOMATED Routine 04/11/20 2:44 AM EDT CBC (WITH DIFF) Routine 04/11/2023 2:44 AM EDT EKG 12-LEAD Routine 04/10/2023 6:27 AM EDT Chest pain, unspecified type TROPONIN - SERIES STAT 04/10/2023 5:1 7 AM EDT HEPARIN (UNFRACTIONATED) LEVEL Timed 04/10/2023 5:17 AM EDT BMP W/FASTING GLUCOSE Routine 04/10/2023 5:17 AM EDT HEMOGRAM Routine 04/10/2023 5:17 AM EDT DIFFERENTIAL, AUTOMATED Routine 04/10/20 5:17 AM EDT CBC (WITH DIFF) Routine 04/10/2023 5:17 AM EDT EKG 12-LEAD STAT 04/09/2023 11:06 PM EDT NSTEMI (non-ST elevated myocardial infarction) TROPONIN - SERIES STAT 04/09/2023 10: 19 PM EDT HEPARIN (UNFRACTIONATED) LEVEL Timed 04/09/2023 10:19 PM EDT EKG 12-LEAD STAT 04/09/2023 9:51 PM EDT Troponin level elevated TROPONIN - SERIES STAT 04/09/2023 10: 53 AM EDT BASIC METABOLIC PANEL Routine 04/09/2023 10:53 AM EDT ECHO LMTD W CONTRAST W LMTD SPEC DOPP COLOR DOPP Routine 04/09/2023 8:10 AM EDT NSTEMI (non-ST elevated myocardial infarction) BMP W/FASTING GLUCOSE Routine 04/09/2023 7:05 AM EDT HEMOGRAM Routine 04/09/2023 7:05 AM EDT DIFFERENTIAL, AUTOMATED Routine 04/09/20 7:05 AM EDT CBC (WITH DIFF) Routine 04/09/2023 7:05 AM EDT BASIC METABOLIC PANEL Routine 04/09/2023 7:05 AM EDT XR CHEST PA AND LATERAL Timed 04/09/20 6:22 AM EDT TROPONIN - SERIES Routine 04/09/2023 4:0 0 AM EDT TROPONIN - SERIES STAT 04/08/2023 9:4 5 PM EDT TROPONIN - SERIES STAT 04/08/2023 7:2 0 PM EDT EKG 12-LEAD STAT 04/08/2023 6:57 PM EDT Precordial pain ELECTROPHYSIOLOGY PROCEDURE Routine 04/08/2023 3:47 PM EDT AV block Bradycardia PAF (paroxysmal atrial fibrillation) HEMOGRAM Routine 04/08/2023 1:11 PM EDT Bradycardia DIFFERENTIAL, AUTOMATED Routine 04/08/20 1:11 PM EDT Bradycardia CBC (WITH DIFF) Routine 04/08/2023 1:11 PM EDT Bradycardia BASIC METABOLIC PANEL Routine 04/08/2023 1:11 PM EDT Bradycardia INSERT PERM PACEMAKER W\TRANSVENOUS ELECTRODES; ATRIAL & VENTRICULAR Routine 04/01/2023 8:10 AM EDT AV block Bradycardia PAF (paroxysmal atrial fibrillation) documented in this encounter Results * EKG 12 Lead (04/12/2023 6:53 AM EDT) Ventricular rate 62 BPM MUSE SYSTEM Atrial Rate 62 BPM MUSE SYSTEM P-R Interval 166 ms MUSE SYSTEM QRS Duration 162 ms MUSE SYSTEM Q-T Interval 526 ms MUSE SYSTEM QTC Calculated (Bezet) 533 ms MUSE SYSTEM Calculated P [place] 0 degrees MUSE SYSTEM Calculated R [place] -81 degrees MUSE SYSTEM Calculated T [place] 132 degrees MUSE SYSTEM INTERPRETATION AV dual-paced rhythm Abnormal ECG When compared with ECG of 11-APR-2023 06:47, Vent. rate has decreased BY ??33 BPM I personally reviewed the tracing and edited the fellows interpretation Confirmed by fellow MD Usha, Jacob ([id number]) on 04/13/2023 2:59:22 PM Confirmed by MD Jen, Aftab ([id number]) on 04/13/2023 4:42:47 PM MUSE SYSTEM 04/12/2023 6:53 AM EDT 04/13/2023 4:42 PM EDT Delgado Sanches MD ECG ORDERABLES MUSE SYSTEM * Differential, Automated (04/12/2023 3:53 AM EDT) Neutrophil % 40.4 % [facility] Neutrophil Absolute 2.01 1.70 - 6.10 x10(3)/[facility] Lymph % 45.8 % [facility] Lymphocytes Abs 2.3 0.9 - 3.2 x10(3)/[facility] Monocyte % 10.6 % [facility] Monocyte Abs 0.5 0.3 - 0.9 x10(3)/[facility] Eos % 1.8 % [facility] Eosinophils Abs 0.1 0.0 - 0.4 x10(3)/[facility] Basophil % 1.0 % [facility] Baso Absolute 0.0 0.0 - 0.1 x10(3)/[facility] Immature Gran % 0.40 % [facility] Comment: Immature granulocytes(IG's)percentage and absolute count will include metamyelocytes, myelocytes, and promyelocytes. Blood smears from CBCs yielding IG's will be scanned manually for concordance. If this scan disagrees with the automated IG or if promyelocytes are noted, a manual differential will be performed. Immature Gran Absolute 0.02 0.00 - 0.04 x10(3)/[facility] [facility] Blood 04/12/2023 3:53 AM EDT 04/12/2023 4:05 AM EDT Narrative Resulting Agency Comment Spec In Lab Neema Babin MD HEMATOLOGY ORDERABLE S [facility] [place] [address] * (ABNORMAL) Hemogram (04/12/2023 3:53 AM EDT) White Blood Cell 5.0 4.0 - 9.5 x10(3)/mc L [facility] Red Blood Cell 3.78(L) 4.00 - 5.21 x10(6)/mc L [facility] Hemoglobin 11.8 11.7 - 15.5 g/dL [facility] Hematocrit 34.4(L) 35.7 - 45.8 % [facility] Mean Cell Volume 91.0 82.6 - 94.4 fL [facility] Mean Cell Hemoglobin 31.2 27.1 - 32.0 pg [facility] Mean Cell Hemoglobin Concentration 34.3 31.7 - 35.0 g/dL [facility] Platelet 143(L) 145 - 357 x10(3)/mc L [facility] RDW Standard Deviation 42.3 37.0 - 46.0 fL [facility] RDW coefficient of variation 12.8 11.5 - 14.1 % [facility] Mean Platelet Volume 10.1 7.6 - 12.9 fL [facility] NRBC% auto 0.0 % [facility] LABOR[facility] NRBC Absolute 0.000 0.000 - 0.000 x10(3)/mc L [facility] Blood 04/12/2023 3:53 AM EDT 04/12/2023 4:05 AM EDT Narrative Resulting Agency Comment Spec In Lab Neema Babin MD HEMATOLOGY ORDERABLE S Performing Organization Address City/[facility]/ZIP Co de Phone Number [facility] [place] [address] * (ABNORMAL) BMP w/fasting Glucose (04/12/2023 3:53 AM EDT) [facility] Signature Glucose Fasting 105(H) 65 - 99 mg/dL [facility] Comment: ?Fasting* Glucose Interpretive Criteria Normal ?65-99 mg/dL Impaired Fasting glucose ?100-125 mg/dL Consistent with Diabetes Mellitus ? >or= 126 mg/dL *Fasting is defined as no caloric intake for at least 8 hours In the absence of unequivocal hyperglycemia a plasma glucose value of >or= 126 mg/dL should be repeated on a subsequent day. Diagnosis and Classification of Diabetes Mellitus, Position Statement from the [place] [employer]. ??Diabetes Care, Volume 33, Supplement 1, Aug 2009 Blood Urea Nitrogen 15 8 - 18 mg/dL [facility] Creatinine 0.74 0.70 - 1.20 mg/dL [facility] Sodium 134(L) 135 - 145 mmol/L [facility] Potassium 3.6 3.5 - 5.0 mmol/L [facility] Comment: Please note: ??Patients with WBC >100,000 may have falsely elevated Potassium levels. ??For accurate Potassium quantification in these patients send serum separator tube (gold top) for subsequent determinations. ??Contact the Clinical Chemistry Laboratory if there are any questions. Chloride 101 98 - 107 mmol/L [facility] Carbon Dioxide 22 22 - 31 mmol/L [facility] Anion Gap 11 5 - 15 mmol/L [facility] Calcium 8.9 8.5 - 10.5 mg/dL [facility] Est Glomerular Filtration Rate 83 >=60 mL/min/1. 73 m?? [facility] Comment: This patient's estimated GFR was calculated using the 2020 CKD-EPI equation. The estimated GFR can vary from the measured GFR by up to 30% in the absence of rapidly changing kidney function. Assessment of the estimated GFR is not appropriate when creatinine concentrations are rapidly changing. For clinical situations in which a more precise estimate of GFR is necessary, consider alternative methods of GFR estimation such as a 24-hour urine creatinine clearance. Assignment of CKD stage 1-5 for patients with an eGFR near the transition point between stages may be based on clinical assessment of muscle mass and symptoms in addition to eGFR. Blood 04/12/2023 3:53 AM EDT 04/12/2023 4:05 AM EDT Narrative Resulting Agency Comment Spec In Lab Delgado Sanches MD CHEMISTRY ORDERABLES Performing Organization Address City/[facility] Co de Phone Number [facility] [place] [address] * EKG 12 Lead (04/11/2023 6:47 AM EDT) Ventricular rate 95 BPM MUSE SYSTEM Atrial Rate 95 BPM MUSE SYSTEM P-R Interval 126 ms MUSE SYSTEM QRS Duration 154 ms MUSE SYSTEM Q-T Interval 422 ms MUSE SYSTEM QTC Calculated (Bezet) 530 ms MUSE SYSTEM Calculated P [place] 32 degrees MUSE SYSTEM Calculated R [place] -81 degrees MUSE SYSTEM Calculated T [place] 94 degrees MUSE SYSTEM INTERPRETATION Atrial-sensed ventricular-paced rhythm Abnormal ECG When compared with ECG of 10-APR-2023 06:27, Premature ventricular complexes are no longer Present Vent. rate has increased BY ??28 BPM I personally reviewed the tracing and edited the fellows interpretation Confirmed by fellow Jorge Brewer ([id number]) on 04/11/2023 5:14:52 PM Confirmed by MD Ellie, [place] ([id number]) on 04/12/2023 7:04:14 PM MUSE SYSTEM 04/11/2023 6:47 AM EDT 04/12/2023 7:04 PM EDT Delgado Sanches MD ECG ORDERABLES Performing Organization Address City/[facility]/ZIP Co de Phone Number MUSE SYSTEM * Differential, Automated (04/11/2023 2:44 AM EDT) Neutrophil % 63.9 % [facility] Neutrophil Absolute 3.93 1.70 - 6.10 x10(3)/[facility] LABORAT[facility] Lymph % 26.1 % [facility] Lymphocytes Abs 1.6 0.9 - 3.2 x10(3)/[facility] LABORAT[facility] Monocyte % 8.6 % [facility] HOSP ITAL LABORATORY Monocyte Abs 0.5 0.3 - 0.9 x10(3)/[facility] Eos % 0.6 % [facility] Eosinophils Abs 0.0 0.0 - 0.4 x10(3)/[facility] LAB[facility] Basophil % 0.5 % [facility] ITAL LABORATORY Baso Absolute 0.0 0.0 - 0.1 x10(3)/[facility] LAB[facility] Immature Gran % 0.30 % [facility] Comment: Immature granulocytes(IG's)percentage and absolute count will include metamyelocytes, myelocytes, and promyelocytes. Blood smears from CBCs yielding IG's will be scanned manually for concordance. If this scan disagrees with the automated IG or if promyelocytes are noted, a manual differential will be performed. Immature Gran Absolute 0.02 0.00 - 0.04 x10(3)/[facility] LAB[facility] Blood 04/11/2023 2:44 AM EDT 04/11/2023 3:25 AM EDT Narrative Resulting Agency Comment Spec In Lab Neema Babin MD HEMATOLOGY ORDERABLE S [facility] [place] [address] * Hemogram (04/11/2023 2:44 AM EDT) White Blood Cell 6.2 4.0 - 9.5 x10(3)/[facility] LAB[facility] Red Blood Cell 4.12 4.00 - 5.21 x10(6)/[facility] Hemoglobin 12.6 11.7 - 15.5 g/dL [facility] Hematocrit 37.6 35.7 - 45.8 % [facility] Mean Cell Volume 91.3 82.6 - 94.4 fL [facility] Mean Cell Hemoglobin 30.6 27.1 - 32.0 pg [facility] Mean Cell Hemoglobin Concentration 33.5 31.7 - 35.0 g/dL [facility] Platelet 152 145 - 357 x10(3)/[facility] RDW Standard Deviation 43.0 37.0 - 46.0 fL [facility] RDW coefficient of variation 13.0 11.5 - 14.1 % [facility] Mean Platelet Volume 10.6 7.6 - 12.9 fL [facility] NRBC% auto 0.0 % [facility] NRBC Absolute 0.000 0.000 - 0.000 x10(3)/mcL [facility] Blood 04/11/2023 2:44 AM EDT 04/11/2023 3:25 AM EDT Narrative Resulting Agency Comment Spec In Lab Neema Babin MD HEMATOLOGY ORDERABLE S Performing Organization Address [facility] Co de Phone Number [facility] [place] [address] * Heparin (unfractionated) Level (04/11/2023 2:44 AM EDT) UF Heparin 0.38 IU/mL [facility] Comment: Heparin (anti-Xa) levels should be determined in a plasma sample that has been drawn 6 hours after a dose change to approximate steady-state for continuous heparin infusions. Indication specific Heparin (anti-Xa) levels based on order set selection: Acute DVT or PE treatment: 0.3 ? 0.7 IU/mL Thrombosis Prevention (eg. atrial fibrillation, tarsha-procedural bridging, mechanical valves): 0.3 ? 0.7 IU/mL Acute Coronary Syndrome: 0.3 ? 0.7 IU/mL Stroke Indications: 0.3 ? 0.5 IU/mL Ultra-low intensity (select indications in cardiac surgery): 0.1 ? 0.3 IU/mL Blood 04/11/2023 2:44 AM EDT 04/11/2023 3:25 AM EDT Narrative Resulting Agency Comment Spec In Lab Delgado Sanches MD HEMATOLOGY ORDERABLE S Performing Organization Address [facility]/ZIP Co de Phone Number [facility] [place] [address] * (ABNORMAL) BMP w/fasting Glucose (04/11/2023 2:44 AM EDT) Glucose Fasting 133(H) 65 - 99 mg/dL [facility] Comment: ?Fasting* Glucose Interpretive Criteria Normal ?65-99 mg/dL Impaired Fasting glucose ?100-125 mg/dL Consistent with Diabetes Mellitus ? >or= 126 mg/dL *Fasting is defined as no caloric intake for at least 8 hours In the absence of unequivocal hyperglycemia a plasma glucose value of >or= 126 mg/dL should be repeated on a subsequent day. Diagnosis and Classification of Diabetes Mellitus, Position Statement from the [place] [employer]. ??Diabetes Care, Volume 33, Supplement 1, Aug 2009 Blood Urea Nitrogen 10 8 - 18 mg/dL [facility] Creatinine 0.60(L) 0.70 - 1.20 mg/dL [facility] Sodium 134(L) 135 - 145 mmol/L [facility] Potassium 3.6 3.5 - 5.0 mmol/L [facility] Comment: Please note: ??Patients with WBC >100,000 may have falsely elevated Potassium levels. ??For accurate Potassium quantification in these patients send serum separator tube (gold top) for subsequent determinations. ??Contact the Clinical Chemistry Laboratory if there are any questions. Chloride 101 98 - 107 mmol/L [facility] Carbon Dioxide 22 22 - 31 mmol/L [facility] Anion Gap 11 5 - 15 mmol/L [facility] Calcium 9.2 8.5 - 10.5 mg/dL [facility] Est Glomerular Filtration Rate 92 >=60 mL/min/1. 73 m?? [facility] Comment: This patient's estimated GFR was calculated using the 2020 CKD-EPI equation. The estimated GFR can vary from the measured GFR by up to 30% in the absence of rapidly changing kidney function. Assessment of the estimated GFR is not appropriate when creatinine concentrations are rapidly changing. For clinical situations in which a more precise estimate of GFR is necessary, consider alternative methods of GFR estimation such as a 24-hour urine creatinine clearance. Assignment of CKD stage 1-5 for patients with an eGFR near the transition point between stages may be based on clinical assessment of muscle mass and symptoms in addition to eGFR. Blood 04/11/2023 2:44 AM EDT 04/11/2023 3:25 AM EDT Narrative Resulting Agency Comment Spec In Lab Delgado Sanches MD CHEMISTRY ORDERABLES Performing Organization Address [facility] Co de Phone Number [facility] [place] [address] * T[facility] (04/11/2023 2:44 AM EDT) Thyroid Stimulating Hormone 3.18 0.27 - 4.20 mcIU/mL [facility] Comment: Reference Interval (mcIU/mL): Females: ??First Trimester: 0.23-3.88 ??Second Trimester: 0.22-3.90 ??Third Trimester: 0.44-4.66 Blood 04/11/2023 2:44 AM EDT 04/11/2023 3:25 AM EDT Narrative Resulting Agency Comment Spec In Lab Delgado Sanches MD CHEMISTRY ORDERABLES Performing Organization Address [facility] Co de Phone Number [facility] [place] [address] * EKG 12 Lead (04/10/2023 6:27 AM EDT) Ventricular rate 67 BPM MUSE SYSTEM Atrial Rate 67 BPM MUSE SYSTEM P-R Interval 166 ms MUSE SYSTEM QRS Duration 164 ms MUSE SYSTEM Q-T Interval 504 ms MUSE SYSTEM QTC Calculated (Bezet) 532 ms MUSE SYSTEM Calculated P [place] 32 degrees MUSE SYSTEM Calculated R [place] -72 degrees MUSE SYSTEM Calculated T [place] 132 degrees MUSE SYSTEM INTERPRETATION Atrial-sensed ventricular-pa mary rhythm Occasional Premature ventricular complexes Abnormal ECG When compared with ECG of 09-APR-2023 23:06, Premature ventricular complexes are now Present Vent. rate has increased BY ?? 4 BPM Confirmed by MD Dewey, Delgado ([id number]) on 04/11/2023 8:25:36 AM MUSE SYSTEM 04/10/2023 6:27 AM EDT 04/11/2023 8:25 AM EDT Delgado Sanches MD ECG ORDERABLES MUSE SYSTEM * Differential, Automated (04/10/2023 5:17 AM EDT) Neutrophil % 55.1 % [facility] Neutrophil Absolute 3.50 1.70 - 6.10 x10(3)/[facility] LAB[facility]AT[facility] Lymph % 33.4 % [facility] Lymphocytes Abs 2.1 0.9 - 3.2 x10(3)/[facility] LAB[facility] Monocyte % 8.8 % [facility] ITAL LABORATORY Monocyte Abs 0.6 0.3 - 0.9 x10(3)/[facility] LAB[facility]AT[facility] Eos % 2.0 % [facility] Eosinophils Abs 0.1 0.0 - 0.4 x10(3)/[facility] LAB[facility] Basophil % 0.5 % [facility] Baso Absolute 0.0 0.0 - 0.1 x10(3)/[facility] LAB[facility] Immature Gran % 0.20 % [facility] Comment: Immature granulocytes(IG's)percentage and absolute count will include metamyelocytes, myelocytes, and promyelocytes. Blood smears from CBCs yielding IG's will be scanned manually for concordance. If this scan disagrees with the automated IG or if promyelocytes are noted, a manual differential will be performed. Immature Gran Absolute 0.01 0.00 - 0.04 x10(3)/[facility] LAB[facility] Blood 04/10/2023 5:17 AM EDT 04/10/2023 5:21 AM EDT Narrative Resulting Agency Comment Spec In Lab Neema Babin MD HEMATOLOGY ORDERABLE S [facility] [place] [address] * Hemogram (04/10/2023 5:17 AM EDT) White Blood Cell 6.4 4.0 - 9.5 x10(3)/[facility] LAB[facility] Red Blood Cell 4.29 4.00 - 5.21 x10(6)/[facility] Hemoglobin 13.4 11.7 - 15.5 g/dL [facility] Hematocrit 39.0 35.7 - 45.8 % [facility] Mean Cell Volume 90.9 82.6 - 94.4 fL [facility] Mean Cell Hemoglobin 31.2 27.1 - 32.0 pg [facility] Mean Cell Hemoglobin Concentration 34.4 31.7 - 35.0 g/dL [facility] Platelet 158 145 - 357 x10(3)/[facility] RDW Standard Deviation 42.9 37.0 - 46.0 fL [facility] RDW coefficient of variation 13.1 11.5 - 14.1 % [facility] Mean Platelet Volume 10.2 7.6 - 12.9 fL [facility] NRBC% auto 0.0 % [facility] NRBC Absolute 0.000 0.000 - 0.000 x10(3)/[facility] Blood 04/10/2023 5:17 AM EDT 04/10/2023 5:21 AM EDT Narrative Resulting Agency Comment Spec In Lab Neema Babin MD HEMATOLOGY ORDERABLE S [facility] [place] [address] * Heparin (unfractionated) Level (04/10/2023 5:17 AM EDT) UF Heparin 0.46 IU/mL [facility] Comment: Heparin (anti-Xa) levels should be determined in a plasma sample that has been drawn 6 hours after a dose change to approximate steady-state for continuous heparin infusions. Indication specific Heparin (anti-Xa) levels based on order set selection: Acute DVT or PE treatment: 0.3 ? 0.7 IU/mL Thrombosis Prevention (eg. atrial fibrillation, tarsha-procedural bridging, mechanical valves): 0.3 ? 0.7 IU/mL Acute Coronary Syndrome: 0.3 ? 0.7 IU/mL Stroke Indications: 0.3 ? 0.5 IU/mL Ultra-low intensity (select indications in cardiac surgery): 0.1 ? 0.3 IU/mL Blood 04/10/2023 5:17 AM EDT 04/10/2023 5:21 AM EDT Narrative Resulting Agency Comment Spec In Lab Delgado Sanches MD HEMATOLOGY ORDERABLE S [facility] [place] [address] * (ABNORMAL) BMP w/fasting Glucose (04/10/2023 5:17 AM EDT) Glucose Fasting 117(H) 65 - 99 mg/dL [facility] Comment: ?Fasting* Glucose Interpretive Criteria Normal ?65-99 mg/dL Impaired Fasting glucose ?100-125 mg/dL Consistent with Diabetes Mellitus ? >or= 126 mg/dL *Fasting is defined as no caloric intake for at least 8 hours In the absence of unequivocal hyperglycemia a plasma glucose value of >or= 126 mg/dL should be repeated on a subsequent day. Diagnosis and Classification of Diabetes Mellitus, Position Statement from the [place] [employer]. ??Diabetes Care, Volume 33, Supplement 1, Aug 2009 Blood Urea Nitrogen 13 8 - 18 mg/dL [facility] Creatinine 0.64(L) 0.70 - 1.20 mg/dL [facility] Sodium 137 135 - 145 mmol/L [facility] Potassium 4.0 3.5 - 5.0 mmol/L [facility] Comment: Please note: ??Patients with WBC >100,000 may have falsely elevated Potassium levels. ??For accurate Potassium quantification in these patients send serum separator tube (gold top) for subsequent determinations. ??Contact the Clinical Chemistry Laboratory if there are any questions. Chloride 104 98 - 107 mmol/L [facility] Carbon Dioxide 22 22 - 31 mmol/L [facility] Anion Gap 11 5 - 15 mmol/L [facility] Calcium 9.2 8.5 - 10.5 mg/dL [facility] Est Glomerular Filtration Rate 91 >=60 mL/min/1. 73 m?? [facility] Comment: This patient's estimated GFR was calculated using the 2020 CKD-EPI equation. The estimated GFR can vary from the measured GFR by up to 30% in the absence of rapidly changing kidney function. Assessment of the estimated GFR is not appropriate when creatinine concentrations are rapidly changing. For clinical situations in which a more precise estimate of GFR is necessary, consider alternative methods of GFR estimation such as a 24-hour urine creatinine clearance. Assignment of CKD stage 1-5 for patients with an eGFR near the transition point between stages may be based on clinical assessment of muscle mass and symptoms in addition to eGFR. Blood 04/10/2023 5:17 AM EDT 04/10/2023 5:21 AM EDT Narrative Resulting Agency Comment Spec In Lab Delgado Sanches MD CHEMISTRY ORDERABLES [facility] [place] [address] * (ABNORMAL) Troponin (04/10/2023 5:17 AM EDT) Troponin-T, High Sensitivity 46(H) <=14 ng/L [facility] Comment: This patient's troponin T concentration was determined using the Mary 5th Generation troponin T assay. The 99th percentile for Troponin T for this test is 14 ng/L for females, and 22 ng/L for males. According to the fourth universal definition of myocardial infarction, the term acute myocardial infarction should be used when there is acute myocardial injury with clinical evidence of acute myocardial ischemia and with detection of a rise and/or fall of cardiac troponin values with at least one value above the 99th percentile and at least one of the following: - Symptoms of myocardial ischemia; - New ischemic ECG changes; - Development of pathological Q waves; - Imaging evidence of new loss of viable myocardium or new regional wall motion abnormality in a pattern consistent with an ischemic etiology; - Identification of a coronary thrombus by angiography or autopsy (not for type 2 or 3 MIs) Serial measurement of troponin and the change in troponin concentration over time (delta) is crucial for the diagnosis of acute myocardial infarction. Guidance on the interpretation of the new 5th Generation Troponin T values and the delta troponin value can be found in the [facility] Laboratory Test Catalog Troponin - [facility] Laboratory Test Catalog Reference: Fourth [place] Definition of Myocardial Infarction. Journal of the [place] [employer] 2018;72:8614-1920 Blood 04/10/2023 5:17 AM EDT 04/10/2023 5:21 AM EDT Narrative Resulting Agency Comment Spec In Lab Delgado Sanches MD CHEMISTRY ORDERABLES [facility] [place] [address] * EKG 12 Lead (04/09/2023 11:06 PM EDT) Ventricular rate 63 BPM MUSE SYSTEM Atrial Rate 63 BPM MUSE SYSTEM P-R Interval 168 ms MUSE SYSTEM QRS Duration 160 ms MUSE SYSTEM Q-T Interval 476 ms MUSE SYSTEM QTC Calculated (Bezet) 487 ms MUSE SYSTEM Calculated P [place] 40 degrees MUSE SYSTEM Calculated R [place] -64 degrees MUSE SYSTEM Calculated T [place] 108 degrees MUSE SYSTEM INTERPRETATION AV dual-paced rhythm Abnormal ECG When compared with ECG of 09-APR-2023 21:51, Vent. rate has decreased BY ?? 5 BPM Confirmed by Ilia Gil MD ([id number]) on 04/12/2023 4:41:40 PM MUSE SYSTEM 04/09/2023 11:0 6 PM EDT 04/12/2023 4:41 PM EDT Delgado Sanches MD ECG ORDERABLES Performing Organization Address City/[facility] Co de Phone Number MUSE SYSTEM * Heparin (unfractionated) Level (04/09/2023 10:19 PM EDT) UF Heparin 0.46 IU/mL [facility] Comment: Heparin (anti-Xa) levels should be determined in a plasma sample that has been drawn 6 hours after a dose change to approximate steady-state for continuous heparin infusions. Indication specific Heparin (anti-Xa) levels based on order set selection: Acute DVT or PE treatment: 0.3 ? 0.7 IU/mL Thrombosis Prevention (eg. atrial fibrillation, tarsha-procedural bridging, mechanical valves): 0.3 ? 0.7 IU/mL Acute Coronary Syndrome: 0.3 ? 0.7 IU/mL Stroke Indications: 0.3 ? 0.5 IU/mL Ultra-low intensity (select indications in cardiac surgery): 0.1 ? 0.3 IU/mL Blood 04/09/2023 10:1 9 PM EDT 04/09/2023 10:37 PM EDT Narrative Resulting Agency Comment Spec In Lab Delgado Sanches MD HEMATOLOGY ORDERABLE S [facility] [place] [address] * (ABNORMAL) Troponin (04/09/2023 10:19 PM EDT) Troponin-T, High Sensitivity 60(H) <=14 ng/L [facility] Comment: This patient's troponin T concentration was determined using the Mary 5th Generation troponin T assay. The 99th percentile for Troponin T for this test is 14 ng/L for females, and 22 ng/L for males. According to the fourth universal definition of myocardial infarction, the term acute myocardial infarction should be used when there is acute myocardial injury with clinical evidence of acute myocardial ischemia and with detection of a rise and/or fall of cardiac troponin values with at least one value above the 99th percentile and at least one of the following: - Symptoms of myocardial ischemia; - New ischemic ECG changes; - Development of pathological Q waves; - Imaging evidence of new loss of viable myocardium or new regional wall motion abnormality in a pattern consistent with an ischemic etiology; - Identification of a coronary thrombus by angiography or autopsy (not for type 2 or 3 MIs) Serial measurement of troponin and the change in troponin concentration over time (delta) is crucial for the diagnosis of acute myocardial infarction. Guidance on the interpretation of the new 5th Generation Troponin T values and the delta troponin value can be found in the [facility] Laboratory Test Catalog Troponin - [facility] Test Catalog Reference: Fourth [place] Definition of Myocardial Infarction. Journal of the [place] [employer] 2018;72:1110-8588 Blood 04/09/2023 10:1 9 PM EDT 04/09/2023 10:37 PM EDT Narrative Resulting Agency Comment Spec In Lab Delgado Sanches MD CHEMISTRY ORDERABLES [facility] [place] [address] * EKG 12 Lead (04/09/2023 9:51 PM EDT) Ventricular rate 68 BPM MUSE SYSTEM Atrial Rate 68 BPM MUSE SYSTEM P-R Interval 162 ms MUSE SYSTEM QRS Duration 164 ms MUSE SYSTEM Q-T Interval 492 ms MUSE SYSTEM QTC Calculated (Bezet) 523 ms MUSE SYSTEM Calculated P [place] 71 degrees MUSE SYSTEM Calculated R [place] -68 degrees MUSE SYSTEM Calculated T [place] 81 degrees MUSE SYSTEM INTERPRETATION AV dual-paced rhythm Abnormal ECG When compared with ECG of 08-APR-2023 18:57, Vent. rate has decreased BY ?? 3 BPM Confirmed by MD Sanches Danette ([id number]) on 04/11/2023 8:25:11 AM MUSE SYSTEM 04/09/2023 9:51 PM EDT 04/11/2023 8:25 AM EDT Robin Alvarado MD ECG ORDERABLES MUSE SYSTEM * (ABNORMAL) Troponin (04/09/2023 10:53 AM EDT) Troponin-T, High Sensitivity 84(H) <=14 ng/L [facility] Comment: This patient's troponin T concentration was determined using the Mray 5th Generation troponin T assay. The 99th percentile for Troponin T for this test is 14 ng/L for females, and 22 ng/L for males. According to the fourth universal definition of myocardial infarction, the term acute myocardial infarction should be used when there is acute myocardial injury with clinical evidence of acute myocardial ischemia and with detection of a rise and/or fall of cardiac troponin values with at least one value above the 99th percentile and at least one of the following: - Symptoms of myocardial ischemia; - New ischemic ECG changes; - Development of pathological Q waves; - Imaging evidence of new loss of viable myocardium or new regional wall motion abnormality in a pattern consistent with an ischemic etiology; - Identification of a coronary thrombus by angiography or autopsy (not for type 2 or 3 MIs) Serial measurement of troponin and the change in troponin concentration over time (delta) is crucial for the diagnosis of acute myocardial infarction. Guidance on the interpretation of the new 5th Generation Troponin T values and the delta troponin value can be found in the [facility] Test Catalog Troponin - [facility] Test Catalog Reference: Fourth [place] Definition of Myocardial Infarction. Journal of the [place] [employer] 2018;72:6745-3833 Blood 04/09/2023 10:5 3 AM EDT 04/09/2023 11:14 AM EDT Narrative Resulting Agency Comment Spec In Lab Delgado Sanches MD CHEMISTRY ORDERABLES [facility] [place] [address] * (ABNORMAL) Basic Metabolic Panel (non-fasting) (04/09/2023 10:53 AM EDT) Glucose 97 65 - 199 mg/dL [facility] Comment:Diabetes: >=200 mg/d L plus symptoms Blood Urea Nitrogen 9 8 - 18 mg/dL [facility] Creatinine 0.63(L) 0.70 - 1.20 mg/dL [facility] Sodium 140 135 - 145 mmol/L [facility] Potassium 4.1 3.5 - 5.0 mmol/L [facility] Comment: Please note: ??Patients with WBC >100,000 may have falsely elevated Potassium levels. ??For accurate Potassium quantification in these patients send serum separator tube (gold top) for subsequent determinations. ??Contact the Clinical Chemistry Laboratory if there are any questions. Chloride 107 98 - 107 mmol/L [facility] Carbon Dioxide 24 22 - 31 mmol/L [facility] Anion Gap 9 5 - 15 mmol/L [facility] Calcium 9.1 8.5 - 10.5 mg/dL [facility] Est Glomerular Filtration Rate 91 >=60 mL/min/1. 73 m?? [facility] Comment: This patient's estimated GFR was calculated using the 2020 CKD-EPI equation. The estimated GFR can vary from the measured GFR by up to 30% in the absence of rapidly changing kidney function. Assessment of the estimated GFR is not appropriate when creatinine concentrations are rapidly changing. For clinical situations in which a more precise estimate of GFR is necessary, consider alternative methods of GFR estimation such as a 24-hour urine creatinine clearance. Assignment of CKD stage 1-5 for patients with an eGFR near the transition point between stages may be based on clinical assessment of muscle mass and symptoms in addition to eGFR. Blood 04/09/2023 10:5 3 AM EDT 04/09/2023 11:14 AM EDT Narrative Resulting Agency Comment Spec In Lab Delgado Sanches MD CHEMISTRY ORDERABLES [facility] [place] [address] * ECHO LMTD W CONTRAST W LMTD SPEC DOPP COLOR DOPP (04/09/2023 8:10 AM EDT) EF 45 [employer] SYSTEM Anatomical Region Laterality Modality Cardiac Other 04/09/2023 7:37 AM EDT Narrative 04/09/2023 1:02 PM EDT ? Echocardiogram Report Name: ELENA THACKER ? Study Date: 04/09/2023 07:37 AMBP: 139/67 mmHg ? Patient Location: [facility]^SS01^A : 1945 ? Height: 160 cm ? Account: [id number] Age: 77 yrs ? Weight: 81 kg Gender: Female ?BSA: 1.8 m2 Ordering Physician: DELGADO SANCHES Performed By: RAMON Choe Reason For Study: NSTEMI Exam Location: [facility]. Interpretation Summary Left ventricle is of normal size. Mildly increased thickness of the basal septum with no obstruction to LV outflow. Left ventricular systolic function is mildly reduced. Left ventricular ejection fraction is estimated visually at 45%, with prominent apical akinesis and some mid ventricular hypokinesis (see diagram in PDF). The right ventricular apex is akinetic. The peak right ventricular systolic pressure is 41 mmHg. There is moderate to severe functional mitral regurgitation. See report for additional findings. Compared to the TTE performed 02/07/23, RWMAs are now present and MR is more prominent. Procedure Limited - 27183. Color Doppler - 89921. limited spectral 32948. Image enhancement Optison was used for left ventricular opacification. There is a pacemaker rhythm. Left Ventricle Left ventricle is of normal size. Mildly increased thickness of the basal septum with no obstruction to LV outflow. There is no ventricular septal defect. Left ventricular systolic function is mildly reduced. The left ventricular ejection fraction is 51% by Smith's biplane. Left ventricular ejection fraction is estimated visually at 45%. There are segmental wall motion abnormalities. Right Ventricle The right ventricle is of normal size. There is a CIED lead in the right ventricle. Right ventricular systolic function is normal. The right ventricular apex is akinetic. Left Atrium The left atrium is severely dilated. Right Atrium A pacemaker lead is present in the right atrium. Aortic Valve The aortic valve is tricuspid. The aortic valve is mildly thickened. There is no aortic stenosis. There is trace aortic regurgitation. Mitral Valve The mitral valve leaflets are thickened. The mitral annulus is dilated. There is moderate to severe mitral regurgitation. Tricuspid Valve The tricuspid valve is structurally normal. There is mild tricuspid regurgitation. Venous Inferior vena cava is normal in size. Inferior vena cava collapse greater than 50% with respiration. Pericardium/Pleural There is no pericardial effusion. Hemodynamics The peak right ventricular systolic pressure is 40.6 mmHg . The estimated right atrial pressure is 3mmHg. Ejection Fraction ?2D Measurements ? Volumes LV Biplane EF: 51.3 % ? IVSd: 1.2 cm ? LA Volume Index: ?LVIDd: 4.7 cm ?55.0 ml/m2 ?LVIDs: 2.9 cm ?EDV Biplane: 137.0 ml ?LVPWd: 0.87 cm ? EDV Biplane Index: 74.3 ?LV mass(C)d: 177.8 grams ? ESV Biplane: 66.7 ml ?LV mass(C)dI: 96.5 grams/m2 ?ESV Biplane Index: 36.2 Doppler TR max eliana: 306.5 cm/sec RVSP(TR): 40.6 mmHg I ?WMSI = 1.75 ? % Normal = 50 ?Segments ??Size X - Cannot ?2 - ?4 - ?1-2 ? small Interpret ?1 - Normal ?? Hypokinetic 3 - Akinetic Dyskinetic ?? 3-5 ? moderate 5 - ? 6-14 ?large Aneurysmal ?15-16 ?? diffuse Procedure Note Ilia Gil MD - 04/09/2023 Echocardiogram Report Name: ELENA THACKER Study Date: 307:37 AMBP: 139/67 mmHg Patient Location:[facility]^SS01^A : 1945 Height: 160 cm Account: [id number] Age: 77 yrs Weight: 81 kg Gender: Female BSA: 1.8 m2 Ordering Physician: DELGADO SANCHES Performed By: RAMON Choe Reason For Study: NSTEMI Exam Location: [facility]. Interpretation Summary Left ventricle is of normal size. Mildly increased thickness of the basalseptum with no obstruction to LV outflow. Left ventricular systolic function ismildly reduced. Left ventricular ejection fraction is estimated visually at 45%,with prominent apical akinesis and some mid ventricular hypokinesis (seediagram in PDF). The right ventricular apex is akinetic. The peak right ventricularsystolic pressure is 41 mmHg. There is moderate to severe functional mitral regurgitation. See report for additional findings. Compared to the TTE performed 02/07/23,RWMAs are now present and MR is more prominent. Procedure Limited - 28069. Color Doppler - 73037. limited spectral 36086. Imageenhancement Optison was used for left ventricular opacification. There is a pacemakerrhythm. Left Ventricle Left ventricle is of normal size. Mildly increased thickness of the basalseptum with no obstruction to LV outflow. There is no ventricular septal defect.Left ventricular systolic function is mildly reduced. The left ventricularejection fraction is 51% by Smith's biplane. Left ventricular ejection fractionis estimated visually at 45%. There are segmental wall motionabnormalities. Right Ventricle The right ventricle is of normal size. There is a CIED lead in the right ventricle. Right ventricular systolic function is normal. The rightventricular apex is akinetic. Left Atrium The left atrium is severely dilated. Right Atrium A pacemaker lead is present in the right atrium. Aortic Valve The aortic valve is tricuspid. The aortic valve is mildly thickened. Thereis no aortic stenosis. There is trace aortic regurgitation. Mitral Valve The mitral valve leaflets are thickened. The mitral annulus is dilated.There is moderate to severe mitral regurgitation. Tricuspid Valve The tricuspid valve is structurally normal. There is mild tricuspidregurgitation. Venous Inferior vena cava is normal in size. Inferior vena cava collapse greaterthan 50% with respiration. Pericardium/Pleural There is no pericardial effusion. Hemodynamics The peak right ventricular systolic pressure is 40.6 mmHg . The estimatedright atrial pressure is 3mmHg. Ejection Fraction 2D Measurements Volumes LV Biplane EF: 51.3 % IVSd: 1.2 cm LA VolumeIndex: LVIDd: 4.7 cm 55.0 ml/m2 LVIDs: 2.9 cm EDV Biplane:137.0 ml LVPWd: 0.87 cm EDV BiplaneIndex: 74.3 LV mass(C)d: 177.8 grams ESV Biplane: 66.7ml LV mass(C)dI: 96.5 grams/m2 ESV BiplaneIndex: 36.2 Doppler TR max eliana: 306.5 cm/sec RVSP(TR): 40.6 mmHg I WMSI = 1.75 % Normal = 50 SegmentsSize X - Cannot 2 - 4 - 1-2small Interpret 1 - Normal Hypokinetic 3 - Akinetic Dyskinetic 3-5moderate 5 - 6-14large Aneurysmal 15-16diffuse Delgado Sanches MD ECHO ORDERABLES * (ABNORMAL) Basic Metabolic Panel (non-fasting) (04/09/2023 7:05 AM EDT) Glucose 97 65 - 199 mg/dL [facility] Comment:Diabetes: >=200 mg/d L plus symptoms Blood Urea Nitrogen 10 8 - 18 mg/dL [facility] Creatinine 0.66(L) 0.70 - 1.20 mg/dL [facility] Sodium 139 135 - 145 mmol/L [facility] Potassium 4.2 3.5 - 5.0 mmol/L [facility] Comment: Please note: ??Patients with WBC >100,000 may have falsely elevated Potassium levels. ??For accurate Potassium quantification in these patients send serum separator tube (gold top) for subsequent determinations. ??Contact the Clinical Chemistry Laboratory if there are any questions. Chloride 107 98 - 107 mmol/L [facility] Carbon Dioxide 25 22 - 31 mmol/L [facility] Anion Gap 7 5 - 15 mmol/L [facility] Calcium 9.1 8.5 - 10.5 mg/dL [facility] Est Glomerular Filtration Rate 90 >=60 mL/min/1. 73 m?? [facility] Comment: This patient's estimated GFR was calculated using the 2020 CKD-EPI equation. The estimated GFR can vary from the measured GFR by up to 30% in the absence of rapidly changing kidney function. Assessment of the estimated GFR is not appropriate when creatinine concentrations are rapidly changing. For clinical situations in which a more precise estimate of GFR is necessary, consider alternative methods of GFR estimation such as a 24-hour urine creatinine clearance. Assignment of CKD stage 1-5 for patients with an eGFR near the transition point between stages may be based on clinical assessment of muscle mass and symptoms in addition to eGFR. Blood 04/09/2023 7:05 AM EDT 04/09/2023 7:23 AM EDT Narrative Resulting Agency Comment Spec In Lab Delgado Sanches MD CHEMISTRY ORDERABLES Performing Organization Address City/[facility]/ZIP Co de Phone Number [facility] [place] [address] * Differential, Automated (04/09/2023 7:05 AM EDT) Neutrophil % 62.6 % [facility] Neutrophil Absolute 3.35 1.70 - 6.10 x10(3)/[facility] Lymph % 28.2 % [facility] Lymphocytes Abs 1.5 0.9 - 3.2 x10(3)/[facility] Monocyte % 7.7 % [facility] Monocyte Abs 0.4 0.3 - 0.9 x10(3)/[facility] Eos % 0.9 % [facility] Eosinophils Abs 0.0 0.0 - 0.4 x10(3)/[facility] Basophil % 0.4 % [facility] Baso Absolute 0.0 0.0 - 0.1 x10(3)/[facility] Immature Gran % 0.20 % [facility] Comment: Immature granulocytes(IG's)percentage and absolute count will include metamyelocytes, myelocytes, and promyelocytes. Blood smears from CBCs yielding IG's will be scanned manually for concordance. If this scan disagrees with the automated IG or if promyelocytes are noted, a manual differential will be performed. Immature Gran Absolute 0.01 0.00 - 0.04 x10(3)/[facility] Blood 04/09/2023 7:05 AM EDT 04/09/2023 7:23 AM EDT Narrative Resulting Agency Comment Spec In Lab Neema Babin MD HEMATOLOGY ORDERABLE S [facility] [place] [address] * Hemogram (04/09/2023 7:05 AM EDT) White Blood Cell 5.4 4.0 - 9.5 x10(3)/[facility] Red Blood Cell 4.29 4.00 - 5.21 x10(6)/[facility] Hemoglobin 13.6 11.7 - 15.5 g/dL [facility] Hematocrit 39.3 35.7 - 45.8 % [facility] Mean Cell Volume 91.6 82.6 - 94.4 fL [facility] Mean Cell Hemoglobin 31.7 27.1 - 32.0 pg [facility] Mean Cell Hemoglobin Concentration 34.6 31.7 - 35.0 g/dL [facility] Platelet 154 145 - 357 x10(3)/[facility] RDW Standard Deviation 42.7 37.0 - 46.0 fL [facility] RDW coefficient of variation 12.8 11.5 - 14.1 % [facility] Mean Platelet Volume 10.4 7.6 - 12.9 fL [facility] NRBC% auto 0.0 % [facility] NRBC Absolute 0.000 0.000 - 0.000 x10(3)/[facility] Blood 04/09/2023 7:05 AM EDT 04/09/2023 7:23 AM EDT Narrative Resulting Agency Comment Spec In Lab Neema Babin MD HEMATOLOGY ORDERABLE S [facility] [place] [address] * (ABNORMAL) BMP w/fasting Glucose (04/09/2023 7:05 AM EDT) Glucose Fasting 97 65 - 99 mg/dL [facility] Comment: ?Fasting* Glucose Interpretive Criteria Normal ?65-99 mg/dL Impaired Fasting glucose ?100-125 mg/dL Consistent with Diabetes Mellitus ? >or= 126 mg/dL *Fasting is defined as no caloric intake for at least 8 hours In the absence of unequivocal hyperglycemia a plasma glucose value of >or= 126 mg/dL should be repeated on a subsequent day. Diagnosis and Classification of Diabetes Mellitus, Position Statement from the [place] [employer]. ??Diabetes Care, Volume 33, Supplement 1, Aug 2009 Blood Urea Nitrogen 10 8 - 18 mg/dL [facility] Creatinine 0.67(L) 0.70 - 1.20 mg/dL [facility] Sodium 137 135 - 145 mmol/L [facility] Potassium 4.1 3.5 - 5.0 mmol/L [facility] Comment: Please note: ??Patients with WBC >100,000 may have falsely elevated Potassium levels. ??For accurate Potassium quantification in these patients send serum separator tube (gold top) for subsequent determinations. ??Contact the Clinical Chemistry Laboratory if there are any questions. Chloride 104 98 - 107 mmol/L [facility] Carbon Dioxide 24 22 - 31 mmol/L [facility] Anion Gap 9 5 - 15 mmol/L [facility] Calcium 9.2 8.5 - 10.5 mg/dL [facility] Est Glomerular Filtration Rate 90 >=60 mL/min/1. 73 m?? [facility] Comment: This patient's estimated GFR was calculated using the 2020 CKD-EPI equation. The estimated GFR can vary from the measured GFR by up to 30% in the absence of rapidly changing kidney function. Assessment of the estimated GFR is not appropriate when creatinine concentrations are rapidly changing. For clinical situations in which a more precise estimate of GFR is necessary, consider alternative methods of GFR estimation such as a 24-hour urine creatinine clearance. Assignment of CKD stage 1-5 for patients with an eGFR near the transition point between stages may be based on clinical assessment of muscle mass and symptoms in addition to eGFR. Blood 04/09/2023 7:05 AM EDT 04/09/2023 7:23 AM EDT Narrative Resulting Agency Comment Spec In Lab Delgado Sanches [place] [address] * XR Chest PA & Lateral (Generic) (04/09/2023 6:22 AM EDT) Anatomical Region Laterality Modality Chest N/A Digital Radiogra phy Impressions 04/09/2023 7:12 AM EDT No pneumothorax status post placement of dual lead pacemaker. Thank you for letting us participate in the care of this patient. ??If you are a health care provider and have any questions regarding this report, please contact the number below. ??For patients who have questions please contact the health director of healthcare systems that requested your imaging first. ? Narrative 04/09/2023 7:12 AM EDT EXAMINATION: XR CHEST PA AND LATERAL (GENERIC) CLINICAL HISTORY: s/p pacemaker, do at 6 am TECHNIQUE: PA and lateral views of the chest COMPARISON: February 06, 2023 FINDINGS: Interval placement of left anterior chest wall generator with dual intact leads in the right atrium and right ventricle. Lungs are clear without mass nor consolidation. No pleural effusion or pneumothorax. Cardiomediastinal contours and pulmonary vasculature are normal. No free air below the diaphragm or focal extrathoracic soft tissue abnormality. No displaced fracture. Procedure Note Bettie Nieto MD - 04/09/2023 EXAMINATION: XR CHEST PA AND LATERAL (GENERIC) CLINICAL HISTORY: s/p pacemaker, do at 6 am TECHNIQUE: PA and lateral views of the chest COMPARISON: February 06, 2023 FINDINGS: Interval placement of left anterior chest wall generator with dual intactleads in the right atrium and right ventricle. Lungs are clear without mass nor consolidation. No pleural effusion or pneumothorax. Cardiomediastinal contours and pulmonary vasculature are normal. No free air below the diaphragm or focal extrathoracic soft tissueabnormality. No displaced fracture. IMPRESSION No pneumothorax status post placement of dual lead pacemaker. Thank you for letting us participate in the care of this patient. If youare a health care provider and have any questions regarding this report,please contact the number below. For patients who have questions please contactthe health director of healthcare systems that requested your imaging first. Delgado Sanches MD IMG DX ORDERABLES * (ABNORMAL) Troponin (04/09/2023 4:00 AM EDT) [facility] Troponin-T, High Sensitivity 113(H) <=14 ng/L [facility] Comment: This patient's troponin T concentration was determined using the Mary 5th Generation troponin T assay. The 99th percentile for Troponin T for this test is 14 ng/L for females, and 22 ng/L for males. According to the fourth universal definition of myocardial infarction, the term acute myocardial infarction should be used when there is acute myocardial injury with clinical evidence of acute myocardial ischemia and with detection of a rise and/or fall of cardiac troponin values with at least one value above the 99th percentile and at least one of the following: - Symptoms of myocardial ischemia; - New ischemic ECG changes; - Development of pathological Q waves; - Imaging evidence of new loss of viable myocardium or new regional wall motion abnormality in a pattern consistent with an ischemic etiology; - Identification of a coronary thrombus by angiography or autopsy (not for type 2 or 3 MIs) Serial measurement of troponin and the change in troponin concentration over time (delta) is crucial for the diagnosis of acute myocardial infarction. Guidance on the interpretation of the new 5th Generation Troponin T values and the delta troponin value can be found in the [facility] Test Catalog Troponin - [facility] Test Catalog Reference: Fourth [place] Definition of Myocardial Infarction. Journal of the [place] [employer] 2018;72:1643-6772 Blood 04/09/2023 4:00 AM EDT 04/09/2023 4:24 AM EDT Narrative Resulting Agency Comment Spec In Lab Justina Tabor [place] [address] * (ABNORMAL) Troponin (04/08/2023 9:45 PM EDT) Troponin-T, High Sensitivity 100(H) <=14 ng/L [facility] Comment: This patient's troponin T concentration was determined using the Mary 5th Generation troponin T assay. The 99th percentile for Troponin T for this test is 14 ng/L for females, and 22 ng/L for males. According to the fourth universal definition of myocardial infarction, the term acute myocardial infarction should be used when there is acute myocardial injury with clinical evidence of acute myocardial ischemia and with detection of a rise and/or fall of cardiac troponin values with at least one value above the 99th percentile and at least one of the following: - Symptoms of myocardial ischemia; - New ischemic ECG changes; - Development of pathological Q waves; - Imaging evidence of new loss of viable myocardium or new regional wall motion abnormality in a pattern consistent with an ischemic etiology; - Identification of a coronary thrombus by angiography or autopsy (not for type 2 or 3 MIs) Serial measurement of troponin and the change in troponin concentration over time (delta) is crucial for the diagnosis of acute myocardial infarction. Guidance on the interpretation of the new 5th Generation Troponin T values and the delta troponin value can be found in the [facility] Test Catalog Troponin - [facility] Test Catalog Reference: Fourth [place] Definition of Myocardial Infarction. Journal of the [place] [employer] 2018;72:7292-5432 Blood 04/08/2023 9:45 PM EDT 04/08/2023 9:45 PM EDT Narrative Resulting Agency Comment Spec In Lab Robin Alvarado MD CHEMISTRY ORDERABLES Performing Organization Address City/[facility]/ZIP Co de Phone Number [facility] [place] [address] * (ABNORMAL) Troponin (04/08/2023 7:20 PM EDT) Troponin-T, High Sensitivity 28(H) <=14 ng/L [facility] [facility] Comment: This patient's troponin T concentration was determined using the Mary 5th Generation troponin T assay. The 99th percentile for Troponin T for this test is 14 ng/L for females, and 22 ng/L for males. According to the fourth universal definition of myocardial infarction, the term acute myocardial infarction should be used when there is acute myocardial injury with clinical evidence of acute myocardial ischemia and with detection of a rise and/or fall of cardiac troponin values with at least one value above the 99th percentile and at least one of the following: - Symptoms of myocardial ischemia; - New ischemic ECG changes; - Development of pathological Q waves; - Imaging evidence of new loss of viable myocardium or new regional wall motion abnormality in a pattern consistent with an ischemic etiology; - Identification of a coronary thrombus by angiography or autopsy (not for type 2 or 3 MIs) Serial measurement of troponin and the change in troponin concentration over time (delta) is crucial for the diagnosis of acute myocardial infarction. Guidance on the interpretation of the new 5th Generation Troponin T values and the delta troponin value can be found in the [facility] Test Catalog Troponin - [facility] Test Catalog Reference: Fourth [place] Definition of Myocardial Infarction. Journal of the [employer] [employer] 2018;72:2064-3331 Blood 04/08/2023 7:20 PM EDT 04/08/2023 7:25 PM EDT Narrative Resulting Agency Comment Spec In Lab Robin Alvarado MD CHEMISTRY ORDERABLES [facility] [place] [address] * EKG 12 Lead (04/08/2023 6:57 PM EDT) Ventricular rate 71 BPM MUSE SYSTEM Atrial Rate 55 BPM MUSE SYSTEM QRS Duration 166 ms MUSE SYSTEM Q-T Interval 504 ms MUSE SYSTEM QTC Calculated (Bezet) 547 ms MUSE SYSTEM Calculated R [place] -69 degrees MUSE SYSTEM Calculated T [place] 65 degrees MUSE SYSTEM INTERPRETATION Ventricular-pa mary rhythm Occasional AV dual-paced complexes and with premature ventricular or aberrantly conducted complexes Abnormal ECG When compared with ECG of 31-MAR-2023 16:23, Electronic ventricular pacemaker has replaced Sinus rhythm Vent. rate has increased BY ??28 BPM Confirmed by MD Sanches Danette ([id number]) on 04/11/2023 8:24:56 AM MUSE SYSTEM 04/08/2023 6:57 PM EDT 04/11/2023 8:24 AM EDT Robin Alvarado MD ECG ORDERABLES MUSE SYSTEM * ELECTROPHYSIOLOGY PROCEDURE (04/08/2023 3:47 PM EDT) Anatomical Region Laterality Modality Other Narrative 04/08/2023 6:43 PM EDT Table formatting from the original result was not included. DUAL CHAMBER PACEMAKER IMPLANTATION Cheesemaking Laborer: Robin Alvarado MD Fellow: Ke Trejo MD Referring: MARGARITA Feliz PATIENT HISTORY: Ms. Thacker is a 77 year old woman who presents with recent episodes of chest discomfort as well as decreased energy. Chest discomfort has correlated to periods of bradycardia. Bradycardia is due to both sinus node dysfunction and high grade AV block as shown on zio patch. Her LVEF is normal. She presents for implantation of a dual chamber pacemaker. PROCEDURE: The patient was brought to the Cardiac Electrophysiology laboratory in a post-absorptive, fasting state after receiving 3 scrubs to the implant area. Informed consent was obtained. A peripheral IV was in place. Continuous electrocardiographic, blood pressure, oxygen saturation and carbon dioxide monitoring was initiated. Self-adhesive cardioversion patches were positioned on the chest. Conscious sedation was administered per protocol. IV antibiotics were administered. The implant site was then prepped and draped in the usual sterile fashion. The implant area was infiltrated with a 50/50 mixture of lidocaine (2%) and bupivicaine (0.5%). An incision was made medial to the left deltopectoral groove and sharp and blunt dissection was used down to the level of the pre-pectoralis fascia. Hemostasis was maintained with electrocautery. A device pocket was fashioned. Axillary venous access was attempted but unsuccessful due to what is likely an atretic vein. Cephalic venous access was then obtained under direct visualization. A wire was retained for access. Following sheath placement in the subclavian vein, a permanent pacing lead was advanced under fluoroscopic guidance and positioned in the right ventricle where a stable position with adequate sensing and pacing characteristics was obtained. The lead was anchored to the pre-pectoralis fascia using 0 silk, non-absorbable suture. Following a second sheath placement in the subclavian vein, a permanent pacing lead was advanced under fluoroscopic guidance and positioned in the right atrium where a stable position with adequate sensing and pacing characteristics was obtained. The lead was anchored to the pre-pectoralis fascia using 0 silk, non-absorbable suture.The pocket was flushed with antibiotic solution. The generator was connected to the leads, tested and found to be functioning satisfactorily. The generator was placed in a Tyrex antimicrobial pouch (due to relatively longer procedure time) and then was implanted in the pocket, and the pocket closed in layers using 2-0, 3-0 and 4-0 absorbable sutures. The skin was closed using a sub-cuticular technique. Steri-strips and a bio-occlusive dressing were applied to the skin. ??The patient remained hemodynamically stable, tolerated the procedure well and was transferred in stable condition. Dr. Alvarado was present for and participated in the entire procedure. LEAD AND GENERATOR DATA: Vessel Slag Worker Model # Serial # Generator [employer] [id number] Atrial Lead [employer] [id number] Ventricular Lead [employer] [id number] PACE/SENSE DATA: Sensed wave (mV) Threshold (V) Impedance (Ohms) Atrium 3.3 0.6 @ 0.4 ms 558 Ventricle 12.4 0.5 @ 0.4 ms 708 FINAL PROGRAMMING: Pacing: Mode Lower rate (ppm) Upper rate (ppm) DDDR 60 130 MEDICATION SUMMARY: please refer to nurse sedationist documentation for intraservice time Medication 10 cc IV omnipaque 2 g IV cefazoline 3 mg IV midazolam 100 mcg IV fentanyl RADIOLOGY SUMMARY: Total Fluoro time (minutes) 11.5 Dose Area Product (cGycm2) 400 CONCLUSIONS: Successful implantation of a [employer] dual chamber pacemaker for symptomatic bradycardia due to sinus node dysfunction and AV block. Restart rivaroxaban anticoagulation in 72 hours. Follow up in EP clinic in 2 weeks. Procedures performed: dual chamber pacemaker implantation (cpt 45568) I have reviewed, edited and approve of the above procedure note. I was present for the entire procedure and I was present for the entire sedation time. Robin Alvarado MD [facility] Electrophysiology 04/08/2023 6:38 PM Procedure Note Robin Alvarado MD - 04/08/2023 DUAL CHAMBER PACEMAKER IMPLANTATION Cheesemaking Laborer: Robin Alvarado MD Fellow: Ke Trejo MD Referring: MARGARITA Feliz PATIENT HISTORY: Ms. Thacker is a 77 year old woman who presentswith recent episodes of chest discomfort as well as decreased energy.Chest discomfort has correlated to periods of bradycardia. Bradycardia isdue to both sinus node dysfunction and high grade AV block as shown on ziopatch. Her LVEF is normal. She presents for implantation of a dual chamberpacemaker. PROCEDURE: The patient was brought to the Cardiac Electrophysiology laboratory in apost-absorptive, fasting state after receiving 3 scrubs to the implantarea. Informed consent was obtained. A peripheral IV was in place.Continuous electrocardiographic, blood pressure, oxygen saturation andexpired carbon dioxide monitoring was initiated. Self-adhesivecardioversion patches were positioned on the chest. Conscious sedation wasadministered per protocol. IV antibiotics were administered. The implantsite was then prepped and draped in the usual sterile fashion. The implantarea was infiltrated with a 50/50 mixture of lidocaine (2%) andbupivicaine (0.5%). An incision was made medial to the left deltopectoralgroove and sharp and blunt dissection was used down to the level of thepre-pectoralis fascia. Hemostasis was maintained with electrocautery. Adevice pocket was fashioned. Axillary venous access was attempted butunsuccessful due to what is likely an atretic vein. Cephalic venous accesswas then obtained under direct visualization. A wire was retained foraccess. Following sheath placement in the subclavian vein, a permanentpacing lead was advanced under fluoroscopic guidance and positioned in theright ventricle where a stable position with adequate sensing and pacingcharacteristics was obtained. The lead was anchored to the pre-pectoralisfascia using 0 silk, non-absorbable suture. Following a second sheathplacement in the subclavian vein, a permanent pacing lead was advancedunder fluoroscopic guidance and positioned in the right atrium where astable position with adequate sensing and pacing characteristics wasobtained. The lead was anchored to the pre-pectoralis fascia using 0 silk,non-absorbable suture.The pocket was flushed with antibiotic solution. Thegenerator was connected to the leads, tested and found to be functioningsatisfactorily. The generator was placed in a Tyrex antimicrobial pouch(due to relatively longer procedure time) [facility] and the pocket closed in layers using 2-0, 3-0 and 4-0 absorbablesutures. The skin was closed using a sub-cuticular technique. Steri-stripsand a bio-occlusive dressing were applied to the skin. The patientremained hemodynamically stable, tolerated the procedure well and wastransferred in stable condition. Dr. Alvarado was present for andparticipated in the entire procedure. LEAD AND GENERATOR DATA: Vessel Slag Worker Model # Serial # Generator [employer] [id number] Atrial Lead [employer] [id number] Ventricular Lead [employer] [id number] PACE/SENSE DATA: Sensed wave (mV) Threshold (V) Impedance (Ohms) Atrium 3.3 0.6 @ 0.4 ms 558 Ventricle 12.4 0.5 @ 0.4 ms 708 FINAL PROGRAMMING: Pacing: Mode Lower rate (ppm) Upper rate (ppm) DDDR 60 130 MEDICATION SUMMARY: please refer to nurse sedationist documentation forintraservice time Medication 10 cc IV omnipaque 2 g IV cefazoline 3 mg IV midazolam 100 mcg IV fentanyl RADIOLOGY SUMMARY: Total Fluoro time (minutes) 11.5 Dose Area Product (cGycm2) 400 CONCLUSIONS: Successful implantation of a [employer] dual chamber pacemaker forsymptomatic bradycardia due to sinus node dysfunction and AV block. Restart rivaroxaban anticoagulation in 72 hours. Follow up in EP clinic in 2 weeks. Procedures performed: dual chamber pacemaker implantation (cpt 76611) I have reviewed, edited and approve of the above procedure note. I waspresent for the entire procedure and I was present for the entire sedationtime. Robin Alvarado MD S Cardiac Electrophysiology 04/08/2023 6:38 PM Robin Alvarado MD EP PROCEDURE ORDERAB LES * Differential, Automated (04/08/2023 1:11 PM EDT) Neutrophil % 51.3 % [facility] Neutrophil Absolute 2.80 1.70 - 6.10 x10(3)/mcL [facility] Lymph % 38.3 % [facility] Lymphocytes Abs 2.1 0.9 - 3.2 x10(3)/[facility] Monocyte % 8.8 % [facility] Monocyte Abs 0.5 0.3 - 0.9 x10(3)/[facility] Eos % 0.9 % [facility] Eosinophils Abs 0.0 0.0 - 0.4 x10(3)/[facility] Basophil % 0.5 % [facility] Baso Absolute 0.0 0.0 - 0.1 x10(3)/[facility] Immature Gran % 0.20 % [facility] Comment: Immature granulocytes(IG's)percentage and absolute count will include metamyelocytes, myelocytes, and promyelocytes. Blood smears from CBCs yielding IG's will be scanned manually for concordance. If this scan disagrees with the automated IG or if promyelocytes are noted, a manual differential will be performed. Immature Gran Absolute 0.01 0.00 - 0.04 x10(3)/[facility] Blood 04/08/2023 1:11 PM EDT 04/08/2023 1:16 PM EDT Narrative Resulting Agency Comment Spec In Lab Meagan AVILA HEMATOLOGY ORDERABL ES [facility] [place] [address] * Hemogram (04/08/2023 1:11 PM EDT) White Blood Cell 5.5 4.0 - 9.5 x10(3)/[facility] Red Blood Cell 4.78 4.00 - 5.21 x10(6)/[facility] Hemoglobin 14.8 11.7 - 15.5 g/dL [facility] Hematocrit 44.0 35.7 - 45.8 % [facility] Mean Cell Volume 92.1 82.6 - 94.4 fL [facility] Mean Cell Hemoglobin 31.0 27.1 - 32.0 pg [facility] Mean Cell Hemoglobin Concentration 33.6 31.7 - 35.0 g/dL [facility] Platelet 186 145 - 357 x10(3)/[facility] RDW Standard Deviation 43.4 37.0 - 46.0 fL [facility] RDW coefficient of variation 12.8 11.5 - 14.1 % [facility] Mean Platelet Volume 10.3 7.6 - 12.9 fL [facility] NRBC% auto 0.0 % [facility] NRBC Absolute 0.000 0.000 - 0.000 x10(3)/[facility] Blood 04/08/2023 1:11 PM EDT 04/08/2023 1:16 PM EDT Narrative Resulting Agency Comment Spec In Lab Meagan AVILA HEMATOLOGY ORDERABL ES [facility] [place] [address] * (ABNORMAL) Basic Metabolic Panel (non-fasting) (04/08/2023 1:11 PM EDT) Glucose 100 65 - 199 mg/dL [facility] Comment:Diabetes: >=200 mg/d L plus symptoms Blood Urea Nitrogen 13 8 - 18 mg/dL [facility] Creatinine 0.69(L) 0.70 - 1.20 mg/dL [facility] Sodium 137 135 - 145 mmol/L [facility] Potassium 4.2 3.5 - 5.0 mmol/L [facility] Comment: Please note: ??Patients with WBC >100,000 may have falsely elevated Potassium levels. ??For accurate Potassium quantification in these patients send serum separator tube (gold top) for subsequent determinations. ??Contact the Clinical Chemistry Laboratory if there are any questions. Chloride 103 98 - 107 mmol/L [facility] Carbon Dioxide 22 22 - 31 mmol/L [facility] Anion Gap 12 5 - 15 mmol/L [facility] Calcium 9.6 8.5 - 10.5 mg/dL [facility] Est Glomerular Filtration Rate 89 >=60 mL/min/1. 73 m?? [facility] Comment: This patient's estimated GFR was calculated using the 2020 CKD-EPI equation. The estimated GFR can vary from the measured GFR by up to 30% in the absence of rapidly changing kidney function. Assessment of the estimated GFR is not appropriate when creatinine concentrations are rapidly changing. For clinical situations in which a more precise estimate of GFR is necessary, consider alternative methods of GFR estimation such as a 24-hour urine creatinine clearance. Assignment of CKD stage 1-5 for patients with an eGFR near the transition point between stages may be based on clinical assessment of muscle mass and symptoms in addition to eGFR. Blood 04/08/2023 1:11 PM EDT 04/08/2023 1:16 PM EDT Narrative Resulting Agency Comment Spec In Lab Janett Vidal MD CHEMISTRY ORDERABLES Performing Organization Address City/State/[facility] Co de Phone Number [facility] [place] [address] documented in this encounter Visit Diagnoses Diagnosis NSTEMI (non-ST elevation myocardial infarction)- Primary Acute myocardial infarction, subendocardial infarction, episode of care unspecified AV block Atrioventricular block, unspecified Bradycardia Other specified cardiac dysrhythmias PAF (paroxysmal atrial fibrillation) Atrial fibrillation Precordial pain Troponin level elevated Other abnormal blood chemistry NSTEMI (non-ST elevated myocardial infarction) Acute myocardial infarction, subendocardial infarction, episode of care unspecified Chest pain, unspecified type Pacemaker - dual lead [employer] Cardiac pacemaker in situ Troponin level elevated Other abnormal blood chemistry AV block Atrioventricular block, unspecified Bradycardia Other specified cardiac dysrhythmias PAF (paroxysmal atrial fibrillation) Atrial fibrillation documented in this encounter Admitting Diagnoses Diagnosis Pacemaker Cardiac pacemaker in situ NSTEMI (non-ST elevation myocardial infarction) Acute myocardial infarction, subendocardial infarction, episode of care unspecified documented in this encounter Administered Medications Inactive Administered Medications - up to 3 most recent administrations Medication Order MAR Action Action Date Dose Rate Site acetaminophen (Tylenol) tablet 650 mg 650 mg, Oral, EVERY 6 HOURS PRN, 3 doses, Starting on 04/09/23 at 0057, Until 04/09/23 at 2005, Pain, Maximum dose of acetaminophen is 4,000 mg from all sources in 24 hours. When ordered for pain, acetaminophen should be given even when other ordered pain medications are indicated. , Routine Given 04/09/2023 8:05 PM EDT 650 mg Given 04/09/2023 6:42 AM EDT 650 mg Given 04/09/2023 1:00 AM EDT 650 mg acetaminophen (Tylenol) tablet 650 mg 650 mg, Oral, EVERY 6 HOURS PRN, Starting on Tue04/10/23 at 1515, Until Tue04/12/23 at 1611, Pain, Maximum dose of acetaminophen is 4,000 mg from all sources in 24 hours. When ordered for pain, acetaminophen should be given even when other ordered pain medications are indicated. , Routine Given 04/11/2023 8:25 PM EDT 650 mg Given 04/11/2023 8:36 AM EDT 650 mg Given 04/10/2023 9:12 PM EDT 650 mg acetaminophen (Tylenol) tablet 975 mg 975 mg, Oral, EVERY 8 HOURS PRN, Starting on Tue04/10/23 at 0836, Until Tue04/10/23 at 1507, Pain, Maximum dose of acetaminophen is 4,000 mg from all sources in 24 hours. When ordered for pain, acetaminophen should be given even when other ordered pain medications are indicated. , Routine Given 04/10/2023 8:50 AM EDT 975 mg amLODIPine (Norvasc) tablet 2.5 mg 2.5 mg, Oral, DAILY, First dose on 04/09/23 at 1230, Until Discontinued, Routine Given 04/11/2023 8:37 AM EDT 2.5 mg Given 04/10/2023 8:52 AM EDT 2.5 mg Given 04/09/2023 12:11 PM EDT 2.5 mg aspirin chewable tablet 81 mg 81 mg, Oral, DAILY, First dose on 04/09/23 at 1445, Until Discontinued, Routine Given 04/12/2023 9:33 AM EDT 81 mg Given 04/11/2023 8:37 AM EDT 81 mg Given 04/10/2023 8:51 AM EDT 81 mg calcium carbonate (TUMS) chewable tablet 1,000 mg 1,000 mg, Oral, EVERY 6 HOURS PRN, Starting on Tue04/10/23 at 0835, Until Tue04/12/23 at 1611, Heartburn, Routine Given 04/11/2023 8:36 AM EDT 1,000 mg Given 04/10/2023 9:12 PM EDT 1,000 mg Given 04/10/2023 8:53 AM EDT 1,000 mg ferrous sulfate EC (FeroSul) tablet 325 mg 325 mg, Oral, EVERY 48 HOURS, First dose on 04/09/23 at 1700, Until Discontinued, DO NOT CRUSH OR OPEN. Take with food or water. , Routine Given 04/11/2023 4:18 PM EDT 325 mg Given 04/09/2023 4:44 PM EDT 325 mg heparin (porcine) (1,000 units/mL) injection 4,000 Units 4,000 Units, Intravenous, ONCE, 1 dose, On 04/09/23 at 1445, INITIAL LOADING DOSE Maximum loading dose 4,000 units, Routine Given 04/09/2023 4:39 PM EDT 4,000 Units heparin (porcine) 50 units/mL in dextrose 5% 500 mL infusion 0-5,000 Units/hr (0-100 mL/hr), Intravenous, CONTINUOUS, Starting on 04/09/23 at 1445, Until 04/11/23 at 1047, Begin infusion at 950 units per hr (12 units/kg/hr). Maximum initial infusion rate is 1,000 units/hr. Infusion doses are rounded to the nearest 50 units. Target Heparin UFH Level (anti-Xa activity) = 0.3 - 0.7 international unit/mL Start adjustment schedule 6 hours after starting infusion. If Heparin UFH Level is: - Less than 0.1 international unit/mL: Administer PRN bolus and increase rate by 300 units per hr (4 units/kg/hr) - 0.1 - 0.19 international unit/mL: Administer PRN bolus and increase rate by 150 units per hr (2 units/kg/hr) - 0.2 - 0.29 international unit/mL: NO BOLUS and increase rate by 150 units per hr (2 units/kg/hr) - 0.3 - 0.7 international unit/mL: No change - 0.71 - 0.79 international unit/mL: NO BOLUS and decrease rate by 100 units per hr (1 units/kg/hr) - 0.8 - 0.99 international unit/mL: NO BOLUS and decrease rate by 150 units per hr (2 units/kg/hr) - Greater than or equal to 1.00 international unit/mL: Hold infusion for 60 minutes then decrease rate by 250 units per hour (3 units/kg/hr) Obtain Heparin UFH Level 6 hours after initiating heparin. Then 6 hours after each dose adjustment. When 2 consecutive Heparin UFH Level within target range of 0.3 - 0.7 international unit/mL, change Heparin UFH Level to once every 24 hours with A.M. labs while on heparin. RN to order required Heparin UFH Level - Per Protocol, Routine Rate/Dose Verify 04/11/2023 4:14 AM EDT 950 Units/hr 19 mL/hr New Bag 04/10/2023 4:48 PM EDT 950 Units/hr 19 mL/hr Rate/Dose Verify 04/10/2023 8:20 AM EDT 950 Units/hr 19 mL /hr isosorbide mononitrate CR (Imdur) tablet 30 mg 30 mg, Oral, EVERY MORNING, First dose on 04/11/23 at 1145, Until Discontinued, DO NOT CRUSH OR OPEN, Routine Given 04/12/2023 6:55 AM EDT 30 mg Given 04/11/2023 12:32 PM EDT 30 mg levothyroxine (Synthroid) tablet 50 mcg 50 mcg, Oral, EVERY MORNING, First dose on 04/09/23 at 1500, Until Discontinued, Routine Given 04/12/2023 6:55 AM EDT 50 mcg Given 04/11/2023 5:31 AM EDT 50 mcg Given 04/10/2023 5:08 AM EDT 50 mcg lidocaine (Xylocaine) (20 mg/mL) 2% injection 400 mg 400 mg (20 mL), Subcutaneous, ONCE, 1 dose, On Tue04/08/23 at 1515, EP (Intra-Procedure), Routine Given 04/08/2023 3:47 PM EDT 400 mg losartan (Cozaar) tablet 50 mg 50 mg, Oral, DAILY, First dose on 04/09/23 at 1530, Until Discontinued, Routine Given 04/11/2023 8:39 AM EDT 50 mg Given 04/10/2023 8:53 AM EDT 50 mg Given 04/09/2023 3:57 PM EDT 50 mg metoprolol succinate XL (Toprol-XL) tablet 25 mg 25 mg, Oral, DAILY, First dose on 04/11/23 at 1145, Until Discontinued, DO NOT CRUSH OR OPEN, Routine Given 04/12/2023 9:36 AM EDT 25 mg Given 04/11/2023 12:32 PM EDT 25 mg metoprolol tartrate (Lopressor) tablet 12.5 mg 12.5 mg, Oral, EVERY 6 HOURS SCHEDULED, First dose (after last modification) on 04/09/23 at 0615, Until Discontinued, Routine Given 04/09/2023 6:44 AM EDT 12.5 mg metoproloL tartrate (Lopressor) tablet 25 mg 25 mg, Oral, EVERY 6 HOURS SCHEDULED, First dose on Tue04/08/23 at 2015, Until Discontinued, Routine Given 04/09/2023 1:58 AM EDT 25 mg Given 04/08/2023 8:21 PM EDT 25 mg nitroGLYcerin (200 mcg/mL) in dextrose 5% 250 mL infusion 0-20 mcg/min (0-6 mL/hr), Intravenous, CONTINUOUS, Starting on 04/09/23 at 2315, Until Tue04/11/23 at 1047, Titrate to angina pain 3/10 or less. Start at 10mcg/min and systolic blood pressure (SBP) 100mmHg or greater. Increase/Decrease by 10 mcg/min every 5 minutes if SBP is 100 mmHg or greater until goal reached. Do not exceed 200 mcg/min, Routine Rate/Dose Change 04/11/2023 8:49 AM EDT 10 mcg/min 3 mL/hr Rate/Dose Change 04/10/2023 10:40 AM EDT 10 mcg/min 3 mL/h r Rate/Dose Verify 04/10/2023 8:21 AM EDT 20 mcg/min 6 mL/hr nitroGLYcerin (Nitrostat) disintegrating tablet 0.4 mg 0.4 mg, Sublingual, EVERY 5 MIN PRN, Starting on Tue04/08/23 at 1845, Until 04/09/23 at 2243, Chest pain, May repeat every 5 minutes for a total of three doses. Notify provider if chest pain not relieved with nitroglycerin. Do not administer nitroglycerin if the patient has received or taken phosphodiesterase (PDE-5) inhibitors such as sildenafil, tadalafil or vardenafil within the last 24 to 72 hours., Routine Given 04/09/2023 10:06 PM EDT 0. 4 mg Given 04/09/2023 9:47 PM EDT 0.4 mg Given 04/08/2023 9:24 PM EDT 0.4 mg potassium chloride ER (Klor-Con M) crystal tablet 20 mEq 20 mEq, Oral, EVERY 4 HOURS PRN, Starting on Tue04/12/23 at 0532, Until Tue04/12/23 at 1611, hypokalemia, Administer for serum potassium (mMol/L) of 3.9 - 4 potassium chloride ER particle/crystal tablets (Klor-Con M) may be broken in half and each half swallowed separately. Tablets can be dissolved in ~4 ounces of water; allow ~2 minutes to dissolve, stir well and drink immediately. Do not crush, chew, or suck on tablet., Routine potassium chloride ER (Klor-Con M) crystal tablet 40 mEq 40 mEq, Oral, EVERY 4 HOURS PRN, Starting on Tue04/12/23 at 0532, Until Tue04/12/23 at 1611, hypokalemia, Administer for serum potassium (mMol/L) of 3.6 - 3.8 potassium chloride ER particle/crystal tablets (Klor-Con M) may be broken in half and each half swallowed separately. Tablets can be dissolved in ~4 ounces of water; allow ~2 minutes to dissolve, stir well and drink immediately. Do not crush, chew, or suck on tablet., Routine rivaroxaban (Xarelto) tablet 20 mg 20 mg, Oral, DAILY WITH DINNER, First dose on 04/11/23 at 1700, Until Discontinued, Routine, Restricted anticoagulant, choose the most appropriate response: Continuation of ongoing therapy Given 04/11/2023 4:19 PM EDT 20 mg rosuvastatin (Crestor) tablet 40 mg 40 mg, Oral, EVERY EVENING, First dose on 04/09/23 at 1700, Until Discontinued, Routine Given 04/11/2023 4:19 PM EDT 40 mg Given 04/10/2023 4:49 PM EDT 40 mg Given 04/09/2023 4:44 PM EDT 40 mg sodium chloride 0.9% infusion CONTINUOUS PRN, Starting on Tue04/08/23 at 1636, Until 04/09/23 at 0955, Intra-Operative (Intra-Procedure) New Bag 04/09/2023 4:25 AM EDT 1 mL 100 mL/hr New Bag 04/08/2023 4:36 PM EDT 200 mL/hr 200 mL/hr Le ft Arm New Bag 04/08/2023 4:36 PM EDT 1 L Le ft Arm documented in this encounter Active and Recently Administered Medications Times are shown in EDT. Scheduled Medication Order 04/10/2023 04/11/2023 04/12/2023 amLODIPine (Norvasc) tablet 2.5 mg (CANCELED) 2.5 mg, Oral, DAILY, First dose on 04/09/23 at 1230, Until Discontinued, Routine 0852 (Given - Provider: Jeni Sunshine, MIKE) 0837 (Given - Provider: Melba Haro, MIKE) aspirin chewable tablet 81 mg 81 mg, Oral, DAILY, First dose on 04/09/23 at 1445, Until Discontinued, Routine 0851 (Given - Provider: Jeni Sunshine RN) 0837 (Given - Provider: Melba Haro RN) 0933 (Given - Provider: Melba Haro RN) ferrous sulfate EC (FeroSul) tablet 325 mg 325 mg, Oral, EVERY 48 HOURS, First dose on 04/09/23 at 1700, Until Discontinued, DO NOT CRUSH OR OPEN. Take with food or water. , Routine 1618 (Given - Provider: Melba Haro, MIKE) isosorbide mononitrate CR (Imdur) tablet 30 mg 30 mg, Oral, EVERY MORNING, First dose on 04/11/23 at 1145, Until Discontinued, DO NOT CRUSH OR OPEN, Routine 1232 (Given - Provider: Melba Haro, MIKE) 0655 (Given - Provider: Kari Armstrong, MIKE) levothyroxine (Synthroid) tablet 50 mcg 50 mcg, Oral, EVERY MORNING, First dose on 04/09/23 at 1500, Until Discontinued, Routine 0508 (Given - Provider: Landy Smith RN) 0531 (Given - Provider: Landy Smith, MIKE) 0655 (Given - Provider: Kari Armstrong RN) losartan (Cozaar) tablet 50 mg 50 mg, Oral, DAILY, First dose on 04/09/23 at 1530, Until Discontinued, Routine 0853 (Given - Provider: Jeni Sunshine RN) 0839 (Given - Provider: Melba Haro RN) 0937 (Not Given - Provider: Melba Haro RN - Reason: Order parameters not met - Comment: bp 95/50 map 63) metoprolol succinate XL (Toprol-XL) tablet 25 mg 25 mg, Oral, DAILY, First dose on Tue04/11/23 at 1145, Until Discontinued, DO NOT CRUSH OR OPEN, Routine 1232 (Given - Provider: Melba Haro RN) 0936 (Given - Provider: Melba Haro RN) rivaroxaban (Xarelto) tablet 20 mg 20 mg, Oral, DAILY WITH DINNER, First dose on Tue04/11/23 at 1700, Until Discontinued, Routine, Restricted anticoagulant, choose the most appropriate response: Continuation of ongoing therapy 1619 (Given - Provider: Melba Haro RN) rosuvastatin (Crestor) tablet 40 mg 40 mg, Oral, EVERY EVENING, First dose on 04/09/23 at 1700, Until Discontinued, Routine 1649 (Given - Provider: Jeni Sunshine RN) 1619 (Given - Provider: Melba Haro RN) Continuous Medication Order 04/10/2023 04/11/2023 04/12/2023 heparin (porcine) 50 units/mL in dextrose 5% 500 mL infusion (CANCELED)(Linked Group 1) 0-5,000 Units/hr (0-100 mL/hr), Intravenous, CONTINUOUS, Starting on 04/09/23 at 1445, Until Tue04/11/23 at 1047, Begin infusion at 950 units per hr (12 units/kg/hr). Maximum initial infusion rate is 1,000 units/hr. Infusion doses are rounded to the nearest 50 units. Target Heparin UFH Level (anti-Xa activity) = 0.3 - 0.7 international unit/mL Start adjustment schedule 6 hours after starting infusion. If Heparin UFH Level is: - Less than 0.1 international unit/mL: Administer PRN bolus and increase rate by 300 units per hr (4 units/kg/hr) - 0.1 - 0.19 international unit/mL: Administer PRN bolus and increase rate by 150 units per hr (2 units/kg/hr) - 0.2 - 0.29 international unit/mL: NO BOLUS and increase rate by 150 units per hr (2 units/kg/hr) - 0.3 - 0.7 international unit/mL: No change - 0.71 - 0.79 international unit/mL: NO BOLUS and decrease rate by 100 units per hr (1 units/kg/hr) - 0.8 - 0.99 international unit/mL: NO BOLUS and decrease rate by 150 units per hr (2 units/kg/hr) - Greater than or equal to 1.00 international unit/mL: Hold infusion for 60 minutes then decrease rate by 250 units per hour (3 units/kg/hr) Obtain Heparin UFH Level 6 hours after initiating heparin. Then 6 hours after each dose adjustment. When 2 consecutive Heparin UFH Level within target range of 0.3 - 0.7 international unit/mL, change Heparin UFH Level to once every 24 hours with A.M. labs while on heparin. RN to order required Heparin UFH Level - Per Protocol, Routine 0603 (Rate/Dose Verify - Provider: Landy Smith RN)0605 (Rate/Dose Verify - Provider: Landy Smith RN)0820 (Rate/Dose Verify - Provider: Jeni Sunshine RN)1648 (New Bag - Provider: Jeni Sunshine RN) 0414 (Rate/Dose Verify - Provider: Landy Smith RN - Comment: UFH 0.38)1000 (Stopped - Provider: Nancy Schmidt RN) nitroGLYcerin (200 mcg/mL) in dextrose 5% 250 mL infusion (CANCELED) 0-20 mcg/min (0-6 mL/hr), Intravenous, CONTINUOUS, Starting on 04/09/23 at 2315, Until 04/11/23 at 1047, Titrate to angina pain 3/10 or less. Start at 10mcg/min and systolic blood pressure (SBP) 100mmHg or greater. Increase/Decrease by 10 mcg/min every 5 minutes if SBP is 100 mmHg or greater until goal reached. Do not exceed 200 mcg/min, Routine 0133 (Rate/Dose Change - Provider: Landy Smith RN)0821 (Rate/Dose Verify - Provider: Jeni Sunshine RN)1040 (Rate/Dose Change - Provider: Jeni Sunshine RN - Comment: per ) 0849 (Rate/Dose Change - Provider: Nancy Schmidt, MIKE)1000 (Stopped - Provider: Nancy Schmidt RN) PRN Medication Order 04/10/2023 04/11/2023 04/12/2023 acetaminophen (Tylenol) tablet 650 mg 650 mg, Oral, EVERY 6 HOURS PRN, Starting on 04/10/23 at 1515, Until Tu04/12/23 at 1611, Pain, Maximum dose of acetaminophen is 4,000 mg from all sources in 24 hours. When ordered for pain, acetaminophen should be given even when other ordered pain medications are indicated. , Routine 1510 (Given - Provider: Jeni Sunshine RN)2111 (Given - Provider: Landy Smith RN) 0836 (Given - Provider: Melba Haro RN)2024 (Given - Provider: Kari Armstrong RN) acetaminophen (Tylenol) tablet 975 mg (CANCELED) 975 mg, Oral, EVERY 8 HOURS PRN, Starting on 04/10/23 at 0836, Until 04/10/23 at 1507, Pain, Maximum dose of acetaminophen is 4,000 mg from all sources in 24 hours. When ordered for pain, acetaminophen should be given even when other ordered pain medications are indicated. , Routine 0850 (Given - Provider: Jeni Sunshine RN) calcium carbonate (TUMS) chewable tablet 1,000 mg 1,000 mg, Oral, EVERY 6 HOURS PRN, Starting on 04/10/23 at 0835, Until Tu04/12/23 at 1611, Heartburn, Routine 0853 (Given - Provider: Jeni Sunshine RN)2111 (Given - Provider: Landy Smith RN) 0836 (Given - Provider: Melba Haro RN) potassium chloride ER (Klor-Con M) crystal tablet 20 mEq(Linked Group 2) 20 mEq, Oral, EVERY 4 HOURS PRN, Starting on Tue04/12/23 at 0532, Until Tue04/12/23 at 1611, hypokalemia, Administer for serum potassium (mMol/L) of 3.9 - 4 potassium chloride ER particle/crystal tablets (Klor-Con M) may be broken in half and each half swallowed separately. Tablets can be dissolved in ~4 ounces of water; allow ~2 minutes to dissolve, stir well and drink immediately. Do not crush, chew, or suck on tablet., Routine potassium chloride ER (Klor-Con M) crystal tablet 40 mEq(Linked Group 2) 40 mEq, Oral, EVERY 4 HOURS PRN, Starting on Tue04/12/23 at 0532, Until Tue04/12/23 at 1611, hypokalemia, Administer for serum potassium (mMol/L) of 3.6 - 3.8 potassium chloride ER particle/crystal tablets (Klor-Con M) may be broken in half and each half swallowed separately. Tablets can be dissolved in ~4 ounces of water; allow ~2 minutes to dissolve, stir well and drink immediately. Do not crush, chew, or suck on tablet., Routine Linked Groups Order Group 1: heparin (porcine) 50 units/mL in dextrose 5% 500 mL infusion (CANCELED)Jump to med 0-5,000 Units/hr (0-100 mL/hr), Intravenous, CONTINUOUS, Starting on 04/09/23 at 1445, Until Tue04/11/23 at 1047, Begin infusion at 950 units per hr (12 units/kg/hr). Maximum initial infusion rate is 1,000 units/hr. Infusion doses are rounded to the nearest 50 units. Target Heparin UFH Level (anti-Xa activity) = 0.3 - 0.7 international unit/mL Start adjustment schedule 6 hours after starting infusion. If Heparin UFH Level is: - Less than 0.1 international unit/mL: Administer PRN bolus and increase rate by 300 units per hr (4 units/kg/hr) - 0.1 - 0.19 international unit/mL: Administer PRN bolus and increase rate by 150 units per hr (2 units/kg/hr) - 0.2 - 0.29 international unit/mL: NO BOLUS and increase rate by 150 units per hr (2 units/kg/hr) - 0.3 - 0.7 international unit/mL: No change - 0.71 - 0.79 international unit/mL: NO BOLUS and decrease rate by 100 units per hr (1 units/kg/hr) - 0.8 - 0.99 international unit/mL: NO BOLUS and decrease rate by 150 units per hr (2 units/kg/hr) - Greater than or equal to 1.00 international unit/mL: Hold infusion for 60 minutes then decrease rate by 250 units per hour (3 units/kg/hr) Obtain Heparin UFH Level 6 hours after initiating heparin. Then 6 hours after each dose adjustment. When 2 consecutive Heparin UFH Level within target range of 0.3 - 0.7 international unit/mL, change Heparin UFH Level to once every 24 hours with A.M. labs while on heparin. RN to order required Heparin UFH Level - Per Protocol, Routine And heparin (porcine) (1,000 units/mL) injection 0-4,000 Units (CANCELED) 0-4,000 Units, Intravenous, BOLUS PER HEPARIN PROTOCOL, Starting on 04/09/23 at 1358, Until 04/11/23 at 1047, Per Protocol, START ADJUSTMENT SCHEDULE 6 HOURS AFTER STARTING INFUSION Bolus doses are rounded to the nearest 100 units. If Heparin UFH Level is: - Less than 0.1 international unit/mL: Bolus 60 units/kg (Maximum of 4,000 units) = Bolus 4,000 units - 0.1 - 0.19 International unit/mL: Bolus 30 units/kg (Maximum of 2,000 units) = Bolus 2,000 units - Equal to or greater than 0.2 international unit/mL: No Bolus, Routine Group 2: potassium chloride ER (Klor-Con M) crystal tablet 40 mEqJump to med 40 mEq, Oral, EVERY 4 HOURS PRN, Starting on Tue04/12/23 at 0532, Until Tue04/12/23 at 1611, hypokalemia, Administer for serum potassium (mMol/L) of 3.6 - 3.8 potassium chloride ER particle/crystal tablets (Klor-Con M) may be broken in half and each half swallowed separately. Tablets can be dissolved in ~4 ounces of water; allow ~2 minutes to dissolve, stir well and drink immediately. Do not crush, chew, or suck on tablet., Routine Or potassium chloride ER (Klor-Con M) crystal tablet 20 mEqJump to med 20 mEq, Oral, EVERY 4 HOURS PRN, Starting on Tue04/12/23 at 0532, Until Tue04/12/23 at 1611, hypokalemia, Administer for serum potassium (mMol/L) of 3.9 - 4 potassium chloride ER particle/crystal tablets (Klor-Con M) may be broken in half and each half swallowed separately. Tablets can be dissolved in ~4 ounces of water; allow ~2 minutes to dissolve, stir well and drink immediately. Do not crush, chew, or suck on tablet., Routine documented in this encounter Care Teams Food Technician Relationship Specialty Start Date End Date Vicenta Ndiaye APRN [address] [place] [address] PCP - General Family Medicine 03/11/21 documented as of this encounter
--- OUTSIDE RECORDS SUMMARY | 2024-05-04 01:40 | XMS_ITS | Encounter Summary ---
[place] [address] Care Team Providers Care Account Executive Software Sales Name Role Phone Vicenta Ndiaye APRN Primary Care Provider [phone] Reason for Referral * Diagnostic Test (Routine) - New Request Specialty Diagnoses / Procedures Referred By Contac t Referred To Contact Cardiology Diagnoses Paroxysmal atrial fibrillation Procedures Echocardiogram Transthoracic Rhonad Mike MD [facility] [place] [place] [address] [facility] [place] [address] Referral ID Status Reason Start Date Expiration Date Visits Requested Visits Authorized [id number] New Request Specialty Service Requested 09/15/2023 2024 1 1 Encounter Details Date Type Department Care Team (Late st Contact Info) Description 09/15/2023 2:00 PM EST Office Visit Cardiology at [address] [phone] Rhonda Mike MD [facility] [place] [place] [address] Paroxysmal atrial fibrillation; Hyperlipidemia, unspecified hyperlipidemia type Social History Tobacco Use Types Packs/Day [...] Sign Reading Time Taken Comments Blood Pressure 128/72 09/15/2023 1:54 PM EST Pulse 60 09/15/2023 1:54 PM EST Temperature - - Respiratory Rate - - Oxygen Saturation 99% 09/15/2023 1:54 PM EST Inhaled Oxygen Concentration - - Weight 79.8 kg (176 lb) 09/15/2023 1:54 PM EST Height 160 cm (5' 3) 09/15/2023 1:54 PM EST Body Mass Index 31.18 09/15/2023 1:54 PM EST documented in this encounter Patient Instructions * Patient Instructions* Rhonda Mike MD - 09/15/2023 2:00 PM EST Next week: Send me your blood pressures and how you feel off bisoprolol. If you have recurrent chest discomfort, we may need to restart it. If your blood pressure is up over 130/80 at home, we may adjust your losartan. In the Spring get your labs: Your cholesterol medication was reduced because your cholesterol was pretty good back in January, but you do have a little plaque in the arteries, so we're trying to find the dose that keeps your LDL <70mg/dL. documented in this encounter Progress Notes * Rhonda Mike MD - 09/15/2023 2:00 PM EST Images from the original note were not included. CARDIOLOGY OUTPATIENT PATIENT NOTE PRIMARY CARE PROVIDER: Vicenta Ndiaye APRN Chief Complaint: Elena Dave is a 78 y.o. female here for follow up atypical chest pain and leg weakness. 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 Spouse Jaime. Plays pickleball. 2children, 4 grandchildren. All local. History: 01/2023: Midsternal chest pain occurring at night. No provoked by activity or relieved by rest. 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 EDP 10mmHg at that time. I reviewed these images personally and do not see evidence of slow flow, thrombus, or SCAD.04/08- 04/12/2023: Elective PPM complicated by MINOCA She had [...] imdur and recommend follow-up echo in 1month. Last visit 04/2023: Having atypical chest pain and leg weakness. Reports prior heart burn, experienced as severe burning and different chest pain. The possibility of coronary and/or esophageal spasm has been discussed. Microvascular angina has not been exclude by CFR however the symptoms are not provoked by exertion and relieved by rest. -Plan to consider CCB for vasospasm and stopping bisoprolol for recurrence or at next visit. PET stress or cMRI could be helpful to confirm prior infarct or presence of microvascular disease if chest pain continued. Today: Add on for follow up. Elena is here with Jaime and in great spirits. They are both back to playing pickle ball and plan to attend a pickleball camp. She has had no chest pain at all. She has nocardiovascular complaints. She is wondering if the bisoprolol and isosorbide are both required. We came up with a plan to attempt down titration of her medical therapy and monitor symptoms. Social history: Social History Tobacco Use Smoking status: Former Passive exposure: Past Smokeless tobacco: Never Tobacco comments: college student for a few months Vaping Use Vaping Use: Never used Substance Use Topics Alcohol use: Yes Alcohol/week: 3.0 standard drinks of alcohol Types: 3 Glasses of wine per week Drug use: Never Family history: Brother- [place] late 70s HTN HLD Mother- [place], Idiopathic hypertrophic subaortic stenosis Father-[place], SBE, congestive failure MEDICATIONS: Current Outpatient Medications Medication Sig Dispense Refill losartan (Cozaar) 25 mg tablet Take 1 tablet by mouth daily. 90 tablet 3 isosorbide mononitrate CR (Imdur) 30 [...] Tablet Take 20 mg by mouth daily. rosuvastatin (Crestor) 5 mg tablet Take 1 tablet by mouth daily. 90 tablet 3 No current facility-administered medications for this visit. ROS: 11 point ros either negative or per HPI Objective: No data found. Gen: pleasant female in NAD Eyes: Non-injected, [...] and ECG. Pertinent results for this evaluationinclude: 05/19/2023: - LVEF 55-60% by visual estimation [...] resolved. Degree of mitral regurgitation is improved. 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 [facility] reviewed-no SCAD, no thrombus, nonobstructive. Episode recently nocturnal pain, differential includes coronary or esophageal spasm, however, nitrates do not relieve it. -continue imdur for now, this may be stopped next, but will likely need some more losartan for BP control -aspirin withheld due to DOAC -consider GI sources (GERD, hiatal hernia) -downtitrate rosuvastatin #Moderate mitral regurgitation -follow up in 2024, sooner PRN based on symptoms #Paroxysmal afib -continue DOAC #[employer] PPM -followed by EP Return in about 1 year (around 09/15/2024) for In Person. Patient instructions: Next week: Send me your blood pressures and how you feel off bisoprolol. If you have recurrent chest discomfort, we may need to restart it. If your blood pressure is up over 130/80 at home, we may adjust your losartan. In the Spring get your labs: Your cholesterol medication was reduced because your cholesterol was pretty good back in January, but you do have a little plaque in the arteries, so we're trying to find the dose that keeps your LDL <70mg/dL. Rhonda Mike MD 09/17/2023 3:32 PM Thank you for the opportunity to participate in this patient's cardiovascular care. All questions were answered and I look forward to the next visit. documented in this encounter Plan of Treatment Upcoming Encounters Date Type Department Care Team (Late st Contact Info) Description 07/13/2024 10:00 AM EST Hospital Encounter Non[place] [address] Arrived Scheduled Orders Name Type Priority Associated Diagnoses Orde r Schedule Lipid Panel (Reflex Direct LDL) Lab Routine Hyperlipidemia, unspecified hyperlipidemia type Expected: 09/15/2024, Expires: 03/15/2025 Echocardiogram Transthoracic Echocardiography Routine Paroxysmal atrial fibrillation Expected: 09/15/2023, Expires: 03/16/2024 documented as of this encounter Visit Diagnoses Diagnosis Paroxysmal atrial fibrillation Atrial fibrillation Hyperlipidemia, unspecified hyperlipidemia type documented in this encounter Care Teams Account Executive Software Sales Relationship Specialty Start Date End Date Vicenta Ndiaye APRN [address] [place] [address] PCP - General Family Medicine 03/11/21 documented as of this encounter
--- OUTSIDE RECORDS SUMMARY | 2024-05-04 01:40 | XMS_ITS | Encounter Summary ---
Author Organization [facility] [place] [address] Care Team Providers Care Guest Services Name Role Phone Vicenta Ndiaye APRN Primary Care Provider [phone] Encounter Details Date Type Department Care Team (Late st Contact Info) Description 04/20/2023 10:30 AM EDT Office Visit Cardiology at [address] [address] Etta Ag, MIKE Pacemaker - dual lead ALOHA Social History Tobacco Use Types Packs/Day Years Used Date Smoking Tobacco: Former Passive Smoke Exposure: Past Smokeless Tobacco: Never Comments:college student for a few months Alcohol Use Standard Drinks/Week Comments Yes 3 (1 standard drink = 0.6 oz pur e alcohol) [facility] Inpatient Questions Answer Date Recorded Does Anyone [...] Sign Reading Time Taken Comments Blood Pressure 134/68 04/20/2023 11:00 AM EDT Pulse 60 04/20/2023 11:00 AM EDT Temperature - - Respiratory Rate - - Oxygen Saturation 99% 04/20/2023 11: 00 AM EDT Inhaled Oxygen Concentration - - Weight 80.6 kg (177 lb 11.2 oz) 023 11:00 AM EDT Height 160 cm (5' 3) 04/20/2023 11:00 AM EDT Body Mass Index 31.48 04/20/2023 11:00 AM EDT documented in this encounter Progress Notes * Etta Ag RN - 04/20/2023 10:30 AM EDT Images from the original note [...] implanted on 04/08/[address] Alvarado. She then had chest pain and elevated troponin's that were managed by cardiology. She presents today for a post op device/wound check. She denies any issues. She does have a small hematoma at her incision site. Did have Bradley AVILA come in and assess incision and he took the steri strips off. Picture is below. Pt states the size has not changed since discharge but the bruising has been resolving. Advised pt on when to seek medical attention-pt verbalizes understanding. PCP: Vicenta Ndiaye APRN Final Parameters at implant: LEAD AND GENERATOR DATA: Communication Center Coordinator Model # Serial # Generator [employer] [id number] Atrial Lead [employer] [id number] Ventricular Lead [employer] [id number] PACE/SENSE DATA: Sensed wave (mV) Threshold (V) Impedance (Ohms) Atrium 3.3 0.6 @ 0.4 ms 558 Ventricle 12.4 0.5 @ 0.4 ms 708 FINAL PROGRAMMING: Pacing: Mode Lower rate (ppm) Upper rate (ppm) DDDR 60 130 Settings: DDDR 60/130 Presenting rhythm: /FEED MILL OPERATOR, AP,FEED MILL OPERATOR Underlying rhythm: rates in the 30s Atrial Lead: P wave: 2.0mV Impedance: 581 ohms Threshold: 0.4V @ 0.4ms Ventricular Lead: R wave: 18.8mV Impedance: 669 ohms Threshold: 0.7V @ 0.4ms Since April 09, 2023 Heart rate histograms: Pacing percentages: AP 62%; FEED MILL OPERATOR 99% Mode switch episodes: none VHR: none Battery: 7.5 years Wound assessment: Bradley AVILA did put a mepilex over this and told patient to keep it on for a couple days Reprogramming: Iterative changes made for testing purposes only; no programmed parameter modifications Plan: RTC for 91 day check, remotely every 3 months ( did give pt ethernet adapter for her monitor) Provider: Etta Ag, RN Attending: Dr. Quinteros documented in this encounter Plan of Treatment Upcoming Encounters Date Type Department Care Team (Late st Contact Info) Description 07/13/2024 10:00 AM [facility] Hospital Encounter Non-Invasive [place]iology [place] [address] Arrived documented as of this encounter Visit Diagnoses Diagnosis Pacemaker - dual lead [employer] Cardiac pacemaker in situ documented in this encounter Care Teams Guest Services Relationship Specialty Start Date End Date Vicenta Ndiaye APRN [address] [place] [address] PCP - General Family Medicine 03/11/21 documented as of this encounter
--- OUTSIDE RECORDS SUMMARY | 2024-05-04 01:40 | XMS_ITS | Encounter Summary ---
[place] [address] Care Team Providers Care Health Promotion Coordinator Name Role Phone Vicenta Ndiaye APRN Primary Care Provider [phone] Encounter Details Date Type Department Care Team (Latest Contact Info) Description 09/08/2023 Travel Social History Tobacco Use Types Packs/Day [...] AM EST Hospital Encounter Non-[place] [phone] Arrived documented as of this encounter Visit Diagnoses Not on filedocumented in this encounter Care Teams Health Promotion Coordinator Relationship Specialty Start Date End Date Vicenta Ndiaye APRN [address] [place] [address] PCP - General Family Medicine 03/11/21 documented as of this encounter
--- OUTSIDE RECORDS SUMMARY | 2024-05-04 01:40 | XMS_ITS | Clinical Summary ---
Author Organization [facility] [place] [address] Care Team Providers Care Manager Contact Name Role Phone Vicenta Ndiaye APRN Primary Care Provider [phone] Allergies Active Allergy Reactions Criticality Noted Date Comments Diflunisal Medium 02/03/2021 Ezetimibe Medium 02/03/2021 Quinapril Medium 02/03/2021 Medications Medication Sig Dispensed Refills Start Date End Date Status rivaroxaban (Xarelto) 20 mg Tablet Take 20 mg by mouth daily. 09/08/2020 Active multivitamin (THERAGRAN) Tablet Take 1 tablet by mouth daily. Active nitroGLYcerin (Nitrostat) 0.[address] 1 tablet under the tongue every 5 minutes as needed for Chest pain. 90 tablet 12 02/07/2023 Active levothyroxine (Synthroid) 50 mcg tablet Take 1 tablet by mouth daily. 30 tablet 3 02/07/2023 Active ferrous sulfate (FeroSul) 325 mg (65 mg iron) tablet Take 325 mg by mouth every other day. Active isosorbide mononitrate CR (Imdur) 30 mg ER 24 hr tablet Take 1 tablet by mouth every morning. 30 tablet 12 04/13/2023 Active rosuvastatin (Crestor) 5 mg tablet Take 1 tablet by mouth daily. 90 tablet 3 09/15/2023 Active losartan (Cozaar) 25 mg tabletIndications:Hyp ertension, unspecified type Take 2 tablets by mouth daily. 90 tablet 3 09/23/2023 Active Active Problems Problem Noted Date Diagnosed Date Stress-induced cardiomyopathy 05/19/2023 Troponin level elevated 04/09/2023 Pacemaker - dual lead [employer] 04/08/20 23 Atrial fibrillation 02/26/2021 Hypertension 02/26/2021 Hypothyroidism 02/26/2021 Resolved Problems Problem Noted Date Diagnosed Date Resolved Date NSTEMI (non-ST elevation sabrina cardial infarction) 04/09/2023 05/19/2023 NSTEMI (non-ST elevated myoc ardial infarction) 02/06/2023 05/19/2023 Encounters Date Type Department Care Team Description 04/14/2024 10:00 AM EDT - 04/14/2024 11:59 PM EDT Hospital Encounter Non-In[place] [address] Discharge Disposition: Home from Last 3 Months Social History Tobacco Use Types Packs/Day Years Used Date Smoking Tobacco: Former Passive Smoke Exposure: Past Smokeless Tobacco: Never Tobacco Cessation:Counseling Given: No Comments:college student for a few months Alcohol [...] on file Sexual Orientation Not on file Last Filed Vital Signs Vital Sign Reading Time Taken Comments Blood Pressure 128/72 09/15/2023 1:54 PM EST Pulse 60 09/15/2023 1:54 PM EST Temperature 36.8 ??C (98.3 ??F) 04/12/2023 11:41 AM E DT Respiratory Rate 18 04/12/2023 11:41 AM EDT Oxygen Saturation 99% 09/15/2023 1:54 PM EST Inhaled Oxygen Concentration - - Weight 79.8 kg (176 lb) 09/15/2023 1:54 PM EST Height 160 cm (5' 3) 09/15/2023 1:54 PM EST Body Mass Index 31.18 09/15/2023 1:54 PM EST Plan of Treatment Upcoming Encounters Date Type Department Care Team (Late st Contact Info) Description 07/13/2024 10:00 AM EST Hospital Encounter Non-Invasive [place] [address] Arrived Health Maintenance Due Date Last Done Comments Pneumoccocal Vaccine: 65+ (1 of 2 - PCV) 1951 Tdap adult 1964 Tetanus vaccine 1964 Zoster vaccine (1 of 2) 1995 Advance Directive 2000 Bone Density Scan 2010 Covid-19 Vaccine (1 - season) 2024 Influenza (Flu) vaccine (1 o f 1 - Influenza standard series) 04/29/2024 Hepatitis C Screening Completed 11/26/2016 Breast Cancer screening Discontinued 05/17/2017 Medical Devices Implanted Type Area Deaf Teacher Device Identifier Shelf Expiration Date Model / Serial / Lot Bsx: [id number]: [id number] Implanted:06/2023 by Robin Alvarado MD (Quantity not on file) Lead Chest Wall [employer] [id number] / [id number] / Bsx: [id number]: [id number] Implanted:06/2023 by Robin Alvarado MD (Quantity not on file) Lead Heart [employer] 7842 / [id number] / Bsx: [id number]: [id number] Implanted:06/2023 by Robin Alvarado MD (Quantity not on file) Pacemaker Chest Wall [employer] [id number] / [id number] / Procedures Procedure Name Priority Date/Time Associated Diagnosis Comments MAMMO SCREENING CAD AND JEFFRY BILATERAL Routine 05/17/2017 11:30 AM EDT HEPATITIS C ANTIBODY Routine 11/26/2016 7:58 AM EDT from Last 3 Months or Most Recently Relevant to Health Maintenance Results * Mammo Screen CAD and Jeffry Bilat (Generic) (05/17/2017 11:30 AM EDT) Anatomical Region Laterality Modality Breast Bilateral Mammography 05/17/2017 11:3 0 AM EDT Impressions 05/17/2017 12:06 PM EDT BIRADS CATEGORY 0: Additional imaging required. Diagnostic imaging of the left breast. Narrative 05/17/2017 12:06 PM EDT REASON FOR EXAM: Screening TECHNIQUE: CC and MLO views were obtained of the bilateral breasts. Computer aided detection was used. 3D tomosynthesis images were obtained in addition to 2D images. FINDINGS: Breast density: There are scattered areas of fibroglandular density. Right breast. ??There are no suspicious microcalcifications, masses, or areas of distortion. No changes compared to prior studies. Stable nondominant well-circumscribed benign-appearing masses. The Left breast is abnormal and additional imaging is required. There is a subtle focal asymmetry of the upper and inner left breast, at approximately 10:00, 6.5 cm from the nipple. Procedure Note Donal Stringer MD - 05/17/2017 REASON FOR EXAM: Screening TECHNIQUE: CC and MLO views were obtained of the bilateral breasts.Computer aided detection was used. 3D tomosynthesis images were obtained inaddition to 2D images. FINDINGS: Breast density: There are scattered areas of fibroglandular density. Right breast. There are no suspicious microcalcifications, masses, orareas of distortion. No changes compared to prior studies. Stable nondominant well-circumscribed benign-appearing masses. The Left breast is abnormaland additional imaging is required. There is a subtle focal asymmetry of theupper and inner left breast, at approximately 10:00, 6.5 cm from the nipple. IMPRESSION BIRADS CATEGORY 0: Additional imaging required. Diagnostic imaging of theleft breast. Daniella Denny APRN IMG MAMMO ORDER JOAO * (ABNORMAL) Hepatitis C Antibody (11/26/2016 7:58 AM EDT) Hepatitis C Antibody Negative(E xternal Lab) Negative [facility] CONVERSION 11/26/2016 7:58 AM EDT Results Provider Nlh Conversion MD ARIANA CALIX ORDERABLES [facility] CONVERSION from Last 3 Months or Most Recently Relevant to Health Maintenance Advance Directives * Attempt Cardiopulmonary Resuscitation - Inpatient (Latest Code Status on File) Date Activated Date Inactivated Comments 04/08/2023 2:44 PM 04/12/2023 4:16 PM Question Answer Comments Code Status decision made by: Patient * Attempt Cardiopulmonary Resuscitation - Inpatient Date Activated Date Inactivated Comments 02/06/2023 3:49 PM 02/07/2023 10:57 PM Question Answer Comments Code Status decision made by: Patient * Attempt Cardiopulmonary Resuscitation - Inpatient Date Activated Date Inactivated Comments 07/16/2021 10:31 AM 07/16/2021 3:51 PM Question Answer Comments Code Status decision made by: Patient Care Teams Manager Contact Relationship Specialty Start Date End Date Vicenta Ndiaye APRN [address] [place] [address] PCP - General Family Medicine 03/11/21
--- OUTSIDE RECORDS SUMMARY | 2024-05-04 01:40 | XMS_ITS | Encounter Summary ---
[place] [address] Care Team Providers Care Police Shift Commander Name Role Phone Vicenta Ndiaye APRN Primary Care Provider [phone] Encounter Details Date Type Department Care Team (Latest Contact Info) Description 01/15/2024 10:00 AM EDT - 01/15/2024 11:59 PM EDT Hospital Encounter Non-Invasive [place] [address] Discharge Disposition: Home Social History Tobacco Use [...] st Contact Info) Description 07/13/2024 10:00 AM [facility] Hospital Encounter Non-Invasive [place] [phone] Arrived documented as of this encounter Procedures Procedure Name Priority Date/Time Associated Diagnosis Comments PRO PM INTERROGATION REMOTE UP TO 90 DAYS Routine 11/17/2023 5:11 AM EDT documented in this encounter Results * Cardiac Device Check - Remote (11/17/2023 5:11 AM EDT) Anatomical Region Laterality Modality Other 11/17/2023 5:11 AM EDT Tae Quinteros MD IMPLANTABLE CARDIAC DEVICE documented in this encounter Visit Diagnoses Not on filedocumented in this encounter Care Teams Police Shift Commander Relationship Specialty Start Date End Date Vicenta Ndiaye APRN [address] [place] [address] PCP - General Family Medicine 03/11/21 documented as of this encounter
--- OUTSIDE RECORDS SUMMARY | 2024-05-04 01:40 | XMS_ITS | Encounter Summary ---
[place] [address] Care Team Providers Care Curling Machine Operator Name Role Phone Vicenta Ndiaye APRN Primary Care Provider [phone] Encounter Details Date Type Department Care Team (Latest Contact Info) Description 09/15/2023 Travel Social History Tobacco Use Types Packs/Day [...] AM EST Hospital Encounter Non-[place] [phone] Arrived documented as of this encounter Visit Diagnoses Not on filedocumented in this encounter Care Teams Curling Machine Operator Relationship Specialty Start Date End Date Vicenta Ndiaye APRN [address] [place] [address] PCP - General Family Medicine 03/11/21 documented as of this encounter
--- OUTSIDE RECORDS SUMMARY | 2024-05-04 01:40 | XMS_ITS | Clinical Summary ---
Author Organization [facility] Address [address] [place] [address] Care Team Providers Care Research And Development Director Name Role Phone Unavailable Primary Care Provider [...] Orientation Not on file Plan of Treatment Health Maintenance Due Date Last Done Comments RSV Immunization ( o r 60+ Years) (1 - 1-dose 60+ series) 2005 Fall Risk Screening 2010 COVID-19 Vaccine (2022- season) 2023 Hepatitis C Screen Completed 05/27/2020 Procedures Procedure Name Priority Date/Time Associated Diagnosis Comments HCV RNA DETECT QUANT Routine 05/27/2020 7:55 EDT from Last 3 Months or Most Recently Relevant to Health Maintenance Results * HCV RNA DETECT QUANT (05/27/2020 7:55 EDT) HCV RNA Qualitative Undetected Undetected 05/29/2020 14:58 EDT [facility] Blood VENOUS BLOOD / Unknown 05/27/2020 7:55 EDT 05/28/2020 16:33 EDT Narrative [facility] - 05/29/2020 14:58 EDT The quantification range of this assay is 15 IU/mL to 100,000,000 IU/mL. ??Testing was performed on the LUI Ampliprep/LUI TaqMan HCV v2.0 ([employer] Provider Outr Resulting Lab CHEMISTRY & BLOOD GAS ORDERABLES [facility] [address] [place] [address] from Last 3 Months or Most Recently Relevant to Health Maintenance
--- OUTSIDE RECORDS SUMMARY | 2024-05-04 01:40 | XMS_ITS | Encounter Summary ---
[place] [address] Care Team Providers Care Estate Tax Examiner Name Role Phone Vicenta Ndiaye APRN Primary Care Provider Encounter Details Date Type Department Care Team (Late st Contact Info) Description 04/08/2023 Orders Only Cardiology at [address] [phone] Meagan Gonzalez PA [facility] [place] [address] Persistent atrial fibrillation; Bradycardia Social History Tobacco Use Types Packs/Day Years [...] AM EST Hospital Encounter Non[place] [address] Arrived documented as of this encounter Procedures Procedure Name Priority Date/Time Associated Diagnosis Comments ECHOCARDIOGRAM TRANSTHORACIC Routine 04/09/2023 2:57 AM EDT documented in this encounter Results * Echocardiogram Transthoracic (04/09/2023 2:57 AM EDT) Anatomical Region Laterality Modality Cardiac Other 04/09/2023 2:57 AM EDT Narrative 04/11/2023 8:25 AM EDT ? Echocardiogram Report Name: GIOVANNI THACKER ? Study Date: 04/09/2023 02:57 AMBP: 129/62 mmHg ? HR: 62 : 1945 ? Height: 160 cm Age: 77 yrs ? Weight: 81 kg Gender: Female ?BSA: 1.8 m2 Performed By: Yu Gonzalez MD Reason For Study: Cardiac disease History: Chest pain Interpreting Fellow: Yu Gonzalez. Exam Location: [facility]. Interpretation Summary Limited echocardiogram performed by on-call fellow. Left ventricle is normal in size with low-normal global systolic function with apical akinesis. Unable to rule out LV thrombus. Right ventricle is normal in size and systolic function. Moderate mitral regurgitation. Moderate tricuspid regurgitation. No pericardial effusion. Consider formal study with echo contrast to rule out apical clot. Procedure Limited - 07158. Color Doppler - 52759. Suboptimal quality. There is a pacemaker rhythm. Left Ventricle Left ventricle is of normal size. There is no ventricular septal defect. Left ventricular systolic function is normal. Left ventricular ejection fraction is estimated visually at 50-55%. There is abnormal septal motion associated with pacemaker activity. There is hypokinesis of the apical region. Right Ventricle The right ventricle is of normal size. Right ventricular systolic function is normal. Aortic Valve The aortic valve is structurally normal. The aortic valve is tricuspid. There is no aortic stenosis. There is trace aortic regurgitation. Mitral Valve There is no mitral stenosis. There is moderate mitral regurgitation. Tricuspid Valve There is no tricuspid stenosis. There is moderate tricuspid regurgitation. Pulmonic Valve There is mild to moderate pulmonic valve regurgitation. Great Arteries The aortic root is of normal size. No abnormalities are identified. Venous Inferior vena cava is normal in size. Pericardium/Pleural There is no pericardial effusion. ? 2D Measurements ?IVSd: 1.1 cm ?LVIDd: 4.6 cm ?LVPWd: 1.1 cm ?LV mass(C)d: 186.4 grams ?LV mass(C)dI: 101.1 grams/m2 ?Ao root diam: 3.6 cm ?Ao root diam index: 1.9 ?TAPSE_phl: 1.8 cm Doppler TR max lico: 271.1 cm/sec LV V1 VTI: 24.6 cm Ao V2 VTI: 26.3 cm Ao Max: 128.3 cm/sec Ao valve max: 6.6 mmHg Ao valve mean: 3.1 mmHg MV E max lico: 77.6 cm/sec MV A max lico: 53.5 cm/sec MV E/A: 1.5 MVA(P1/2t): 2.7 cm2 Lat Peak E' Lico: 10.0 cm/sec E/ e' (lat): 7.7 Med Peak E' Lico: 6.0 cm/sec E/e' (med): 13.0 E/e' Average: 10.4 Dimensionless index Aov: 0.93 I ?WMSI = 1.31 ? % Normal = 69 ?Segments ??Size X - Cannot ?2 - ?4 - ?1-2 ? small Interpret ?1 - Normal ?? Hypokinetic 3 - Akinetic Dyskinetic ?? 3-5 ? moderate 5 - ? 6-14 ?large Aneurysmal ?15-16 ?? diffuse Procedure Note Tanmay Sims MD - 04/11/2023 Echocardiogram Report Name: GIOVANNI THACKER Study Date: 302:57 AMBP: 129/62 mmHg HR: 62 : 1945 Height: 160 cm Age: 77 yrs Weight: 81 kg Gender: Female BSA: 1.8 m2 Performed By: Yu Gonzalez MD Reason For Study: Cardiac disease History: Chest pain Interpreting Fellow: Yu Gonzalez. Exam Location: [facility]. Interpretation Summary Limited echocardiogram performed by on-call fellow. Left ventricle is normal in size with low-normal global systolic functionwith apical akinesis. Unable to rule out LV thrombus. Right ventricle is normal in size and systolic function. Moderate mitral regurgitation. Moderate tricuspid regurgitation. No pericardial effusion. Consider formal study with echo contrast to rule out apical clot. Procedure Limited - 35155. Color Doppler - 94042. Suboptimal quality. There is apacemaker rhythm. Left Ventricle Left ventricle is of normal size. There is no ventricular septal defect.Left ventricular systolic function is normal. Left ventricular ejectionfraction is estimated visually at 50-55%. There is abnormal septal motion associatedwith pacemaker activity. There is hypokinesis of the apical region. Right Ventricle The right ventricle is of normal size. Right ventricular systolic functionis normal. Aortic Valve The aortic valve is structurally normal. The aortic valve is tricuspid.There is no aortic stenosis. There is trace aortic regurgitation. Mitral Valve There is no mitral stenosis. There is moderate mitral regurgitation. Tricuspid Valve There is no tricuspid stenosis. There is moderate tricuspidregurgitation. Pulmonic Valve There is mild to moderate pulmonic valve regurgitation. Great Arteries The aortic root is of normal size. No abnormalities are identified. Venous Inferior vena cava is normal in size. Pericardium/Pleural There is no pericardial effusion. 2D Measurements IVSd: 1.1 cm LVIDd: 4.6 cm LVPWd: 1.1 cm LV mass(C)d: 186.4 grams LV mass(C)dI: 101.1 grams/m2 Ao root diam: 3.6 cm Ao root diam index: 1.9 TAPSE_phl: 1.8 cm Doppler TR max lico: 271.1 cm/sec LV V1 VTI: 24.6 cm Ao V2 VTI: 26.3 cm Ao Max: 128.3 cm/sec Ao valve max: 6.6 mmHg Ao valve mean: 3.1 mmHg MV E max lico: 77.6 cm/sec MV A max lico: 53.5 cm/sec MV E/A: 1.5 MVA(P1/2t): 2.7 cm2 Lat Peak E' Lico: 10.0 cm/sec E/ e' (lat): 7.7 Med Peak E' Lico: 6.0 cm/sec E/e' (med): 13.0 E/e' Average: 10.4 Dimensionless index Aov: 0.93 I WMSI = 1.31 % Normal = 69 SegmentsSize X - Cannot 2 - 4 - 1-2small Interpret 1 - Normal Hypokinetic 3 - Akinetic Dyskinetic 3-5moderate 5 - 6-14large Aneurysmal 15-16diffuse Unknown ECHO ORDERABLES * (ABNORMAL) Basic Metabolic Panel (non-fasting) (04/08/2023 1:11 PM EDT) Glucose 100 65 - 199 mg/dL [facility] Comment:Diabetes: >=200 mg/d L plus symptoms Blood Urea Nitrogen 13 8 - 18 mg/dL [facility] Creatinine 0.69(L) 0.70 - 1.20 mg/dL [facility] Sodium 137 135 - 145 mmol/L [facility] Potassium 4.2 3.5 - 5.0 mmol/L [facility] Comment: Please note: ??Patients with WBC >100,000 may have falsely elevated Potassium levels. ??For accurate Potassium quantification in these patients send serum separator tube (gold top) for subsequent determinations. ??Contact the Clinical Chemistry Laboratory if there are any questions. Chloride 103 98 - 107 mmol/L [facility] Carbon Dioxide 22 22 - 31 mmol/L [facility] Anion Gap 12 5 - 15 mmol/L [facility] Calcium 9.6 8.5 - 10.5 mg/dL [facility] Est Glomerular Filtration Rate 89 >=60 mL/min/1. 73 m?? [facility] Comment: This patient's estimated GFR [...] Vidal MD CHEMISTRY ORDERABLES Performing Organization Address City/State/[facility] Co de Phone Number [facility] [place] [address] documented in this encounter Visit Diagnoses Diagnosis Persistent atrial fibrillation Atrial fibrillation Bradycardia Other specified cardiac dysrhythmias documented in this encounter Care Teams Estate Tax Examiner Relationship Specialty Start Date End Date Vicenta Ndiaye APRN [address] [place] [address] PCP - General Family Medicine 03/11/21 documented as of this encounter
--- OUTSIDE RECORDS SUMMARY | 2024-05-04 01:40 | XMS_ITS | Encounter Summary ---
Author Organization [facility] [place] [address] Care Team Providers Care Systems Analyst Developer Name Role Phone Senthil Vicenta DAILEY Primary Care Provider [phone] Reason for Visit * Reason Onset Date Comments Medication Refill 09/23/2023 Encounter Details Date Type Department Care Team (Late st Contact Info) Description 09/23/2023 Refill Cardiology at [address] [address] Rhonda Mike MD [facility] [address] Medication Refill Social History Tobacco Use Types Packs/Day Years [...] AM EST Hospital Encounter Non[place] [address] Arrived documented as of this encounter Visit Diagnoses Diagnosis Hypertension, unspecified type documented in this encounter Care Teams Systems Analyst Developer Relationship Specialty Start Date End Date Vicenta Ndiaye APRN [address] [place] [address] PCP - General Family Medicine 03/11/21 documented as of this encounter
--- OUTSIDE RECORDS SUMMARY | 2024-05-04 01:40 | XMS_ITS | Encounter Summary ---
[place] [address] Care Team Providers Care Lands Resource Manager Name Role Phone Vicenta Ndiaye APRN Primary Care Provider [phone] Encounter Details Date Type Department Care Team (Latest Contact Info) Description 05/13/2023 Travel Social History Tobacco Use Types Packs/Day [...] AM EST Hospital Encounter Non-[place] [phone] Arrived documented as of this encounter Visit Diagnoses Not on filedocumented in this encounter Care Teams Lands Resource Manager Relationship Specialty Start Date End Date Vicenta Ndiaye APRN [address] [place] [address] PCP - General Family Medicine 03/11/21 documented as of this encounter
--- OUTSIDE RECORDS SUMMARY | 2024-05-04 01:40 | XMS_ITS | Encounter Summary ---
[place] [address] Care Team Providers Care Laser Cutter Name Role Phone Vicenta Ndiaye APRN Primary Care Provider [phone] Encounter Details Date Type Department Care Team (Latest Contact Info) Description 04/18/2023 Travel Social History Tobacco Use Types Packs/Day [...] AM EST Hospital Encounter Non-Invasive [place] [phone] Arrived documented as of this encounter Visit Diagnoses Not on filedocumented in this encounter Care Teams Laser Cutter Relationship Specialty Start Date End Date Vicenta Ndiaye APRN [address] [place] [address] PCP - General Family Medicine 03/11/21 documented as of this encounter
--- OUTSIDE RECORDS SUMMARY | 2024-05-04 01:41 | XMS_ITS | Encounter Summary ---
[place] [address] Care Team Providers Care Photographic Aide Name Role Phone Vicenta Ndiaye APRN Primary Care Provider [phone] Reason for Visit * Auth/Cert (Routine) Specialty Diagnoses / Procedures Referred By Contac t Referred To Contact Diagnoses Unspecified atrioventricular block Bradycardia, unspecified Paroxysmal atrial fibrillation AV block [I44.30]Bradycardia [R00.1]PAF (paroxysmal atrial fibrillation) [I48.0] Procedures PRO INSERT NEW OR REPLACE HEART PACER XVENOUS ATRIAL/VENTRICULAR ELECTROPHYSIOLOGY PROCEDURE INSERT PERM PACEMAKER W\TRANSVENOUS ELECTRODES; ATRIAL & VENTRICULAR (WRVU 8.52) Robin Alvarado MD [facility] [place] [address] [facility] Referral ID Status Reason Start Date Expiration Date Visits Re quested Visits Authorized [id number] 1 1 Encounter Details Date Type Department Care Team (Late st Contact Info) Description 04/08/2023 2:00 PM EDT - 04/08/2023 5:00 PM EDT Surgery [place] [address] Robin Alvarado MD [facility] [place] [address] ELECTROPHYSIOLOGY PROCEDURE Social History Tobacco Use Types Packs/Day Years [...] Sign Reading Time Taken Comments Blood Pressure 150/72 04/08/2023 5:00 PM EDT Pulse 43 04/08/2023 5:00 PM EDT Temperature 36.4 ??C (97.5 ??F) 04/08/2023 1:21 PM ED T Respiratory Rate 16 04/08/2023 1:21 PM EDT Oxygen Saturation 98% 04/08/2023 5:00 PM EDT Inhaled Oxygen Concentration - - Weight 81.1 kg (178 lb 11.2 oz) 04/08/2023 1:21 PM EDT Height 160 cm (5' 3) 04/08/2023 1:21 PM EDT Body Mass Index 31.83 04/09/2023 [...] Troponin level elevated Pacemaker - dual lead [employer] Resolved Hospital Problems No resolved problems to [...] Studies and Lab Data: Labs: Recent Labs 04/12/2335204/11/2324304/10/2317 WBC 5.0 6.2 6.4 HGB 11.8 12.6 13.4 HCT 34.4* 37.6 39.0 PLATELET 143* 152 158 Recent Labs 04/12/2335204/11/2324304/10/2317 NA 134* 134* 137 K 3.6 3.6 [...] hours. No results for input(s): PHART, PO2ART, PHN8QVM in the last 72 hours. No results for input(s): PHVEN, BOS5VNO, PO2VEN, QJL4KNS in the last 72 hours. Studies: TTE: [...] who have questions please contact the health certified social workers in health care that requested your imaging first. Electronically signed by: Bettie Nieto MD, [facility] ([phone]), at 04/09/2023 7:12 AM Pending Studies and Lab Data: The patient [...] Center 04/20/2023 10:30 AM Etta Ag RN [facility] CARD 4A [facility] 05/19/2023 10:40 AM Rhonda Mike MD [facility] CARD 4A [facility] Your Inpatient Medical Team at [facility] Name(s) of your inpatient provider(s): Chauncey Neri MD, Eren Lema MD, Eneida Berger MD Your Primary Care Provider: Vicenta Senthil, BARBER APPRENTICE [phone] For questions regarding this document or issues relating to this hospitalization on the Medical Service, please contact your inpatient physician through the [facility] Assistant Hairstylist . Issues afterhours and on weekends will be handled by the Hospitalist staff on-call. General Instructions FINAL PACEMAKER RECOMMENDATIONS: 1. Standard post implant discharge instructions (see below): 2. Medications as listed above. Resume rivaroxaban(Xarelto) on TuesdayApril 11 PM You may use ice packs over the incision. Make sure to use a clothes designer (such as a towel) in between [...] F. The office scheduling phone number is [phone]. ARM MOVEMENT RESTRICTIONS POST-IMPLANT - Do not [...] please call the Cardiac ElectrophysiologyTriage Nurse at [phone], option 3. Future Appointments and Orders Future Appointments and Orders Future Appointments Provider Department Dept Phone 04/20/2023 10:30 AM Etta Ag RN Cardiology at [facility] Arrive at: [facility] [phone] 05/19/2023 10:40 AM Rhonda Mike MD Cardiology at [facility] Arrive at: [facility] [phone] Discharge References/Attachments: Discharge References/Attachments None Inpatient Provider Contact Information: Please call the hospital string winding machine operator at [phone] and ask to be connected with Cardiology Team S1 (pager [phone]). Electronically Signed By: Eren Lema MD 04/12/2023 [...] the incision. Make sure to use a clothes designer (such as a towel) in between [...] F. The office scheduling phone number is [phone]. ARM MOVEMENT RESTRICTIONS POST-IMPLANT - Do not [...] please call the Cardiac ElectrophysiologyTriage Nurse at [phone], option 3. * Patient Instructions* Eren Lema [...] Center 04/20/2023 10:30 AM Etta Ag RN [facility] CARD 4A [facility] 05/19/2023 10:40 AM Rhonda Mike MD [facility] CARD 4A [facility] Your Inpatient Medical Team at [facility] Name(s) of your inpatient provider(s): Chauncey Neri MD, Eren Lema MD, Eneida Berger MD Your Primary Care Provider: Vicenta Ndiaye, BARBER APPRENTICE [phone] For questions regarding this document or issues relating to this hospitalization on the Medical Service, please contact your inpatient physician through the [facility] Assistant Hairstylist . Issues afterhours and on weekends will [...] in the Last 24 Hours: Recent Labs 04/11/2324304/10/23 0504/09/23 0705 WBC 6.2 6.4 5.4 HGB 12.6 13.4 13.6 HCT 37.6 39.0 39.3 PLATELET 152 158 154 Recent Labs 04/11/2324304/10/23 0517 04/09/23 1053 NA 134* 137 140 K 3.6 4.0 4.1 CL 101 104 107 CO2 22 22 24 BUN 10 13 9 CREATININE 0.60* 0.64* 0.63* No results for input(s): AST, ALT, ALKPHOS, BILITOT, BILIDIR in the last 168 hours. Recent Labs 04/11/2324304/10/2317 04/09/23 1053 CALCIUM 9.2 9.2 9.1 No results [...] Eren Lema MD, PGY-1 Cardiology S1 (Pager [phone]) 04/11/2023 Associated attestation - Chauncey Neri MD [...] to the Office of Care Management - Aquacultural Worker Supervisor. * Tristen Bruce MD - 04/10/2023 7:39 [...] Infusions: heparin (porcine) infusion 950 Units/hr (04/10/23 06) nitroGLYcerin 20 mcg/min (04/10/23 0133) Scheduled Meds: [...] Vitals for the past 168 hrs: Weight 04/09/23 2011 81.8 kg (180 lb 5.4 oz) 04/08/23 [...] few months ago.) She has been kept michelle heparin gtt and overnight was started on [...] Tristen Bruce MD, PGY-3 Cardiology S1 (Pager [phone]) 04/10/2023 Associated attestation - Delgado Sanches MD - 04/10/2023 10:20 PM EDT CARDIOLOGY ATTENDING NOTE Patient: Elena Cari Thacker Date of Service: 04/10/2023 Date of [...] of two midnights or is on the [facility] inpatient only procedure list (status C) due to: acute myocardial infarction requiring titration of IV medication and fluid monitoring Delgado Sanches MD Cardiovascular Medicine Personal Pager [phone] 04/10/2023 10:17 PM * Neema Babin MD [...] Babin MD, PGY-1 Cardiology S 1 (Pager [phone]) 04/09/2023 Associated attestation - Delgado Sanches MD [...] of two midnights or is on the [facility] inpatient only procedure list (status C) due to: acute myocardial infarction requiring titration of IV medication and fluid monitoring Delgado Sanches MD Cardiovascular Medicine Personal Pager [phone] 04/09/2023 10:41 PM * Bradley Krishann PA - 04/09/2023 8:21 AM EDT Patient Name: Elena Thacker Patient Age: 77 y.o. Birthdate: 1945 Admit date: 04/08/2023 Attending Physician: Delgado Sanches MD Cardiac Electrophysiology Post-Implant Device Interrogation Elena Thacker [id number] 04/09/2023 History: Elena Thacker is a 77 y.o. female with a history of symptomatic bradycardia andintermittent high grade AV block, who is POD#1 of a left sided dual lead [employer] pacemaker implantation. During the procedure she developed some right arm pain that migrated to her anteriorchest and back. Initially this was thought to be secondary to procedural positioning, however it did not resolve with repositioning and felt to her, to be similar to that pain which prompted her January2023 admission for [facility]. LHC at that time showed very mild [...] to auscultation bilaterally Neuro- A&Ox3 Device Interrogation: Electric Motor Assembler And Tester Model # Serial # Generator [employer] [id number] Atrial Lead [employer] [id number] Ventricular Lead [employer] [id number] DDDR @ 60/130/130 AP 90%; PLATFORM MATERIAL HANDLER MANAGER 98% Battery and Leads Voltage: -- Status: [...] who is s/p left sided dual lead [employer] pacemaker implantation for sinus node dysfunction [...] Please feel free to contact EP Service (#[id number]), if additional issues arise, otherwise, EP signing off. Provider: MARGARITA Simmons EP Consult attending physician: Javi Quinteros MD EP Consult positional pager #[phone](EPHI) EP Device interrogation positional pager # [phone] Associated attestation - Tae Quinteros MD - 04/09/2023 11:21 AM EDT Cardiac Electrophysiology Attending Addendum: The patient was seen, interviewed and examined by me, and Bradley Krishnan's note above was reviewed by me and agreed with. 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 Tae Quinteros MD, PhD, [facility] Cardiac Electrophysiology documented in this encounter H&P Notes * Yu Gonzalez MD - 04/09/2023 3:27 AM EDT Images from the original note were not included. Cardiology H&P Patient info: Name: Elena Thacker : 1945 PCP: Vicenta Ndiaye APRN PCP phone number: [phone] Date of Admission: 04/08/2023 ( Hospital Day [...] PMH No past medical history on file. [facility] Past Surgical History: Procedure Laterality Date PRO CARDIOVERSION ELECTIVE ARRHYTHMIA EXTERNAL N/A 07/16/2021 CARDIOVERSION-ELECTIVE (WRVU 2.25) performed by Janett Vidal MD at [facility] MAIN OR Family History No family [...] Gas) No results found for: PHART, PO2ART, LTN4ZHJ, CIG9CZZ Microbiology: Microbiology Results (Last 30 days) No [...] to peak, resolution chest pain, checked by senior tax accountant I personally performed 70 minutes of aggregate critical care time exclusive of procedures and teaching during this visit. This includes time spent during direct patient evaluation and reassessment, interpreting diagnostic tests, directing life and/or organ supporting interventions, and documentation. Yu Gonzalez MD [facility] Intelligence Group Supervisor, PGY-6 Pager #[phone] [employer] message me 7AM-4PM on weekdays for non-urgent [...] in agreement. Family history is norable for TX in her father and subaortic stenosis in [...] of two midnights or is on the [facility] inpatient only procedure list (status C) due to: acute myocardial infarction requiring titration of IV medication and fluid monitoring Delgado Sanches MD Cardiovascular Medicine Personal Pager [phone] 04/09/2023 3:15 PM * Robin Alvarado MD [...] in agreement. Dr. Robin Alvarado, electrophysiology attending ([id number]) documented in this encounter Miscellaneous Notes * [...] Payor: AETNA MANAGED MEDICARE / Plan: AETNA MANAGED MEDICARE / Product Type: *No Product [...] 180 days) Any patient receiving care in [place] must abide by [place] law. The hierarchy for surrogate decision making is: (a) Patient???s spouse or civil union partner unless there is a divorce proceeding, separation agreement, or restraining order limiting that person???s relationship with the patient. Leon Keith (spouse) is SDM [phone] (b) Any adult son or daughter of the patient. (c) Either parent of the patient. (d) Any adult brother or sister of the patient. (e) Any adult grandchild of the patient. (f) Any grandparent of the patient. (g) Any adult aunt, uncle, niece, or nephew of the patient. (h) A close friend of the patient. (i) The agent with financial power of workers compensation defense attorney or a conservator appointed in accordance [...] bar - tub/shower Home Address confirmed as: [address] [place] [phone] Social & Family Supports: All names listed below confirmed with patient as current and correct Extended Emergency Contact Information Primary Emergency Contact: Leon Keith Address: [address] [place] [address] [facility] Mobile Relation: Other Current Care Provided by: [...] Payor: AETNA MANAGED MEDICARE / Plan: AETNA MANAGED MEDICARE / Product Type: *No Product type* / Secondary Insurance: N/A ONLY if patient has Medicare A&B - Does this patient have secondary insurance?: (N/A. AETNA Managed Medicare) ; Prescription Coverage: Yes (AETNA Managed Medicare) Preferred Pharmacy: [facility] [address] [address] Status: Patient is a : No Primary Care Provider confirmed: Vicenta Ndiaye APRN [phone] Patient/Caregiver Goals of Treatment: home with spouse [...] Operative Note Patient Name: Elena Thacker : [id number] MR#: [id number] Case Date: 04/08/2023 Surgeon: Surgeon(s) and Role: [...] AM EST Hospital Encounter Non-In[place] [address] Arrived Scheduled Orders Name Type Priority Associated [...] 2:44 AM EDT DIFFERENTIAL, AUTOMATED Routine 04/11/20 23 2:44 AM EDT CBC (WITH DIFF) Routine 04/11/2023 2:44 AM EDT EKG 12-LEAD Routine 04/10/2023 6:27 AM EDT Chest pain, unspecified type TROPONIN - SERIES STAT 04/10/2023 5:1 7 AM EDT HEPARIN (UNFRACTIONATED) LEVEL Timed 04/10/2023 5:17 AM EDT BMP W/FASTING GLUCOSE Routine 04/10/2023 5:17 AM EDT HEMOGRAM Routine 04/10/2023 5:17 AM EDT DIFFERENTIAL, AUTOMATED Routine 04/10/20 23 5:17 AM EDT CBC (WITH DIFF) Routine [...] (Bezet) 533 ms MUSE SYSTEM Calculated P [place] 0 degrees MUSE SYSTEM Calculated R [place] -81 degrees MUSE SYSTEM Calculated T [place] 132 degrees MUSE SYSTEM INTERPRETATION AV dual-paced rhythm Abnormal ECG When compared with ECG of 11-APR-2023 06:47, Vent. rate has decreased BY ??33 BPM I personally reviewed the tracing and edited the fellows interpretation Confirmed by fellow MD Usha, Jacob ([id number]) on 04/13/2023 2:59:22 PM Confirmed by MD Li Jon ([id number]) on 04/13/2023 4:42:47 PM MUSE SYSTEM 04/12/2023 6:53 AM EDT 04/13/2023 4:42 PM EDT Delgado Sanches MD ECG ORDERABLES MUSE SYSTEM * Differential, Automated (04/12/2023 3:53 AM EDT) Neutrophil % 40.4 % [facility] Neutrophil Absolute 2.01 1.70 - 6.10 x10(3)/[facility] Lymph % 45.8 % [facility] Lymphocytes Abs 2.3 0.9 - 3.2 x10(3)/[facility] Monocyte % 10.6 % [facility] Monocyte Abs 0.5 0.3 - 0.9 x10(3)/[facility] Eos % 1.8 % [facility] Eosinophils Abs 0.1 0.0 - 0.4 x10(3)/[facility] Basophil % 1.0 % [facility] Baso Absolute 0.0 0.0 - 0.1 x10(3)/[facility] Immature Gran % 0.40 % [facility] Comment: Immature granulocytes(IG's)percentage and absolute count will include metamyelocytes, myelocytes, and promyelocytes. Blood smears from CBCs yielding IG's will be scanned manually for concordance. If this scan disagrees with the automated IG or if promyelocytes are noted, a manual differential will be performed. Immature Gran Absolute 0.02 0.00 - 0.04 x10(3)/[facility] Blood 04/12/2023 3:53 AM EDT 04/12/2023 4:05 AM EDT Narrative Resulting Agency Comment Spec In Lab Neema Babin MD HEMATOLOGY ORDERABLE S [facility] [place] [address] * (ABNORMAL) Hemogram (04/12/2023 3:53 AM EDT) White Blood Cell 5.0 4.0 - 9.5 x10(3)/mc L [facility] Red Blood Cell 3.78(L) 4.00 - 5.21 x10(6)/mc L [facility] Hemoglobin 11.8 11.7 - 15.5 g/dL [facility] Hematocrit 34.4(L) 35.7 - 45.8 % [facility] Mean Cell Volume 91.0 82.6 - 94.4 fL [facility] Mean Cell Hemoglobin 31.2 27.1 - 32.0 pg [facility] Mean Cell Hemoglobin Concentration 34.3 31.7 - 35.0 g/dL [facility] Platelet 143(L) 145 - 357 x10(3)/mc L [facility] RDW Standard Deviation 42.3 37.0 - 46.0 fL [facility] RDW coefficient of variation 12.8 11.5 - 14.1 % [facility] Mean Platelet Volume 10.1 7.6 - 12.9 fL [facility] NRBC% auto 0.0 % [facility] NRBC Absolute 0.000 0.000 - 0.000 x10(3)/ L [facility] Blood 04/12/2023 3:53 AM EDT 04/12/2023 4:05 AM EDT Narrative Resulting Agency Comment Spec In Lab Neema Babin MD HEMATOLOGY ORDERABLE S [facility] [place] [address] * (ABNORMAL) BMP w/fasting Glucose (04/12/2023 3:53 AM EDT) Glucose Fasting 105(H) 65 - 99 mg/dL [facility] Comment: ?Fasting* Glucose Interpretive Criteria Normal [...] of Diabetes Mellitus, Position Statement from the [place] [employer]. ??Diabetes Care, Volume 33, Supplement 1, Aug 2009 Blood Urea Nitrogen 15 8 - 18 mg/dL [facility] Creatinine 0.74 0.70 - 1.20 mg/dL [facility] Sodium 134(L) 135 - 145 mmol/L [facility] Potassium 3.6 3.5 - 5.0 mmol/L [facility] Comment: Please note: ??Patients with WBC >100,000 may have falsely elevated Potassium levels. ??For accurate Potassium quantification in these patients send serum separator tube (gold top) for subsequent determinations. ??Contact the Clinical Chemistry Laboratory if there are any questions. Chloride 101 98 - 107 mmol/L [facility] Carbon Dioxide 22 22 - 31 mmol/L [facility] Anion Gap 11 5 - 15 mmol/L [facility] Calcium 8.9 8.5 - 10.5 mg/dL [facility] Est Glomerular Filtration Rate 83 >=60 mL/min/1. 73 m?? [facility] Comment: This patient's estimated GFR was [...] Sanches MD CHEMISTRY ORDERABLES Performing Organization Address City/State/[facility] Co de Phone Number [facility] [place] [address] * EKG 12 Lead (04/11/2023 6:47 AM EDT) Ventricular rate 95 BPM MUSE SYSTEM Atrial Rate 95 BPM MUSE SYSTEM P-R Interval 126 ms MUSE SYSTEM QRS Duration 154 ms MUSE SYSTEM Q-T Interval 422 ms MUSE SYSTEM QTC Calculated (Bezet) 530 ms MUSE SYSTEM Calculated P [place] 32 degrees MUSE SYSTEM Calculated R [place] -81 degrees MUSE SYSTEM Calculated T [place] 94 degrees MUSE SYSTEM INTERPRETATION Atrial-sensed ventricular-paced rhythm Abnormal ECG When compared with ECG of 10-APR-2023 06:27, Premature ventricular complexes are no longer Present Vent. rate has increased BY ??28 BPM I personally reviewed the tracing and edited the fellows interpretation Confirmed by fellow Jorge Brewer ([id number]) on 04/11/2023 5:14:52 PM Confirmed by MD Ellie, [place] ([id number]) on 04/12/2023 7:04:14 PM MUSE SYSTEM 04/11/2023 6:47 AM EDT 04/12/2023 7:04 PM EDT Delgado Sanches MD ECG ORDERABLES Performing Organization Address City/[facility] Co de Phone Number MUSE SYSTEM * Differential, Automated (04/11/2023 2:44 AM EDT) Pathologist [facility] Neutrophil % 63.9 % [facility] Neutrophil Absolute 3.93 1.70 - 6.10 x10(3)/[facility] Lymph % 26.1 % [facility] Lymphocytes Abs 1.6 0.9 - 3.2 x10(3)/[facility] Monocyte % 8.6 % [facility] Monocyte Abs 0.5 0.3 - 0.9 x10(3)/[facility] Eos % 0.6 % [facility] Eosinophils Abs 0.0 0.0 - 0.4 x10(3)/[facility] Basophil % 0.5 % [facility] Baso Absolute 0.0 0.0 - 0.1 x10(3)/[facility] Immature Gran % 0.30 % [facility] Comment: Immature granulocytes(IG's)percentage and absolute count will include metamyelocytes, myelocytes, and promyelocytes. Blood smears from CBCs yielding IG's will be scanned manually for concordance. If this scan disagrees with the automated IG or if promyelocytes are noted, a manual differential will be performed. Immature Gran Absolute 0.02 0.00 - 0.04 x10(3)/[facility] Blood 04/11/2023 2:44 AM EDT 04/11/2023 3:25 AM EDT Narrative Resulting Agency Comment Spec In Lab Neema Babin MD HEMATOLOGY ORDERABLE S [facility] [place] [address] * Hemogram (04/11/2023 2:44 AM EDT) White Blood Cell 6.2 4.0 - 9.5 x10(3)/[facility] Red Blood Cell 4.12 4.00 - 5.21 x10(6)/[facility] Hemoglobin 12.6 11.7 - 15.5 g/dL [facility] Hematocrit 37.6 35.7 - 45.8 % [facility] Mean Cell Volume 91.3 82.6 - 94.4 fL [facility] Mean Cell Hemoglobin 30.6 27.1 - 32.0 pg [facility] Mean Cell Hemoglobin Concentration 33.5 31.7 - 35.0 g/dL [facility] Platelet 152 145 - 357 x10(3)/[facility] RDW Standard Deviation 43.0 37.0 - 46.0 fL [facility] RDW coefficient of variation 13.0 11.5 - 14.1 % [facility] Mean Platelet Volume 10.6 7.6 - 12.9 fL [facility] NRBC% auto 0.0 % [facility] NRBC Absolute 0.000 0.000 - 0.000 x10(3)/[facility] Blood 04/11/2023 2:44 AM EDT 04/11/2023 3:25 AM EDT Narrative Resulting Agency Comment Spec In Lab Neema Babin MD HEMATOLOGY ORDERABLE S Performing Organization Address [facility] Co de Phone Number [facility] [place] [address] * Heparin (unfractionated) Level (04/11/2023 2:44 AM EDT) UF Heparin 0.38 IU/mL [facility] Comment: Heparin (anti-Xa) levels should be [...] MD HEMATOLOGY ORDERABLE S Performing Organization Address [facility] Co de Phone Number [facility] [address] * (ABNORMAL) BMP w/fasting Glucose (04/11/2023 2:44 AM EDT) Glucose Fasting 133(H) 65 - 99 mg/dL [facility] Comment: ?Fasting* Glucose Interpretive Criteria [...] of Diabetes Mellitus, Position Statement from the [place] [employer]. ??Diabetes Care, Volume 33, Supplement 1, Aug 2009 Blood Urea Nitrogen 10 8 - 18 mg/dL [facility] Creatinine 0.60(L) 0.70 - 1.20 mg/dL [facility] Sodium 134(L) 135 - 145 mmol/L [facility] Potassium 3.6 3.5 - 5.0 mmol/L [facility] Comment: Please note: ??Patients with WBC >100,000 may have falsely elevated Potassium levels. ??For accurate Potassium quantification in these patients send serum separator tube (gold top) for subsequent determinations. ??Contact the Clinical Chemistry Laboratory if there are any questions. Chloride 101 98 - 107 mmol/L [facility] Carbon Dioxide 22 22 - 31 mmol/L [facility] Anion Gap 11 5 - 15 mmol/L [facility] Calcium 9.2 8.5 - 10.5 mg/dL [facility] Est Glomerular Filtration Rate 92 >=60 mL/min/1. 73 m?? [facility] Comment: This patient's estimated GFR was [...] In Lab Delgado Sanches MD CHEMISTRY ORDERABLES [facility] [place] [address] * TSH [place] (04/11/2023 2:44 AM EDT) Pathologist [facility] Thyroid Stimulating Hormone 3.18 0.27 - 4.20 mcIU/mL [facility] Comment: Reference Interval (mcIU/mL): Females: ??First Trimester: 0.23-3.88 ??Second Trimester: 0.22-3.90 ??Third Trimester: 0.44-4.66 Blood 04/11/2023 2:44 AM EDT 04/11/2023 3:25 AM EDT Narrative Resulting Agency Comment Spec In Lab Delgado Sanches MD CHEMISTRY ORDERABLES [facility] [place] [address] * EKG 12 Lead (04/10/2023 6:27 AM EDT) Pathologist [facility] Ventricular rate 67 BPM MUSE SYSTEM Atrial Rate 67 BPM MUSE SYSTEM P-R Interval 166 ms MUSE SYSTEM QRS Duration 164 ms MUSE SYSTEM Q-T Interval 504 ms MUSE SYSTEM QTC Calculated (Bezet) 532 ms MUSE SYSTEM Calculated P [place] 32 degrees MUSE SYSTEM Calculated R [place] -72 degrees MUSE SYSTEM Calculated T [place] 132 degrees MUSE SYSTEM INTERPRETATION Atrial-sensed ventricular-pa mary rhythm Occasional Premature ventricular complexes Abnormal ECG When compared with ECG of 09-APR-2023 23:06, Premature ventricular complexes are now Present Vent. rate has increased BY ?? 4 BPM Confirmed by MD Deewy, Delgado ([id number]) on 04/11/2023 8:25:36 AM MUSE SYSTEM 04/10/2023 6:27 AM EDT 04/11/2023 8:25 AM EDT Delgado Sanches MD ECG ORDERABLES MUSE SYSTEM * Differential, Automated (04/10/2023 5:17 AM EDT) Pathologist [facility] Neutrophil % 55.1 % [facility] Neutrophil Absolute 3.50 1.70 - 6.10 x10(3)/[facility] Lymph % 33.4 % [facility] Lymphocytes Abs 2.1 0.9 - 3.2 x10(3)/[facility] Monocyte % 8.8 % [facility] Monocyte Abs 0.6 0.3 - 0.9 x10(3)/[facility] Eos % 2.0 % [facility] Eosinophils Abs 0.1 0.0 - 0.4 x10(3)/[facility] Basophil % 0.5 % [facility] Baso Absolute 0.0 0.0 - 0.1 x10(3)/[facility] Immature Gran % 0.20 % [facility] Comment: Immature granulocytes(IG's)percentage and absolute count will include metamyelocytes, myelocytes, and promyelocytes. Blood smears from CBCs yielding IG's will be scanned manually for concordance. If this scan disagrees with the automated IG or if promyelocytes are noted, a manual differential will be performed. Immature Gran Absolute 0.01 0.00 - 0.04 x10(3)/[facility] Blood 04/10/2023 5:17 AM EDT 04/10/2023 5:21 AM EDT Narrative Resulting Agency Comment Spec In Lab Neema Babin MD HEMATOLOGY ORDERABLE S [facility] [place] [address] * Hemogram (04/10/2023 5:17 AM EDT) White Blood Cell 6.4 4.0 - 9.5 x10(3)/[facility] Red Blood Cell 4.29 4.00 - 5.21 x10(6)/[facility] Hemoglobin 13.4 11.7 - 15.5 g/dL [facility] Hematocrit 39.0 35.7 - 45.8 % [facility] Mean Cell Volume 90.9 82.6 - 94.4 fL [facility] Mean Cell Hemoglobin 31.2 27.1 - 32.0 pg [facility] Mean Cell Hemoglobin Concentration 34.4 31.7 - 35.0 g/dL [facility] Platelet 158 145 - 357 x10(3)/[facility] RDW Standard Deviation 42.9 37.0 - 46.0 fL [facility] RDW coefficient of variation 13.1 11.5 - 14.1 % [facility] Mean Platelet Volume 10.2 7.6 - 12.9 fL [facility] NRBC% auto 0.0 % [facility] NRBC Absolute 0.000 0.000 - 0.000 x10(3)/mcL [facility] Blood 04/10/2023 5:17 AM EDT 04/10/2023 5:21 AM EDT Narrative Resulting Agency Comment Spec In Lab Neema Babin MD HEMATOLOGY ORDERABLE S Performing Organization Address City/[facility]/ZIP Co de Phone Number [facility] [address] * Heparin (unfractionated) Level (04/10/2023 5:17 AM EDT) UF Heparin 0.46 IU/mL [facility] Comment: Heparin (anti-Xa) levels should be [...] MD HEMATOLOGY ORDERABLE S Performing Organization Address City/[facility]/ZIP Co de Phone Number [facility] [place] [address] * (ABNORMAL) BMP w/fasting Glucose (04/10/2023 5:17 AM EDT) Glucose Fasting 117(H) 65 - 99 mg/dL [facility] Comment: ?Fasting* Glucose Interpretive Criteria Normal [...] of Diabetes Mellitus, Position Statement from the [place] [employer]. ??Diabetes Care, Volume 33, Supplement 1, Aug 2009 Blood Urea Nitrogen 13 8 - 18 mg/dL [facility] Creatinine 0.64(L) 0.70 - 1.20 mg/dL [facility] Sodium 137 135 - 145 mmol/L [facility] Potassium 4.0 3.5 - 5.0 mmol/L [facility] Comment: Please note: ??Patients with WBC >100,000 may have falsely elevated Potassium levels. ??For accurate Potassium quantification in these patients send serum separator tube (gold top) for subsequent determinations. ??Contact the Clinical Chemistry Laboratory if there are any questions. Chloride 104 98 - 107 mmol/L [facility] Carbon Dioxide 22 22 - 31 mmol/L [facility] Anion Gap 11 5 - 15 mmol/L [facility] Calcium 9.2 8.5 - 10.5 mg/dL [facility] Est Glomerular Filtration Rate 91 >=60 mL/min/1. 73 m?? [facility] Comment: This patient's estimated GFR was [...] In Lab Delgado Sanches MD CHEMISTRY ORDERABLES [facility] [place] [address] * (ABNORMAL) Troponin (04/10/2023 5:17 AM EDT) Troponin-T, High Sensitivity 46(H) <=14 ng/L [facility] Comment: This patient's troponin T concentration [...] troponin value can be found in the [facility] Laboratory Test Catalog Troponin - [facility] Test Catalog Reference: Fourth [place] Definition of Myocardial Infarction. Journal of the [place] [employer] 2018;72:4365-2498 Blood 04/10/2023 5:17 AM EDT 04/10/2023 5:21 AM EDT Narrative Resulting Agency Comment Spec In Lab Delgado Sanches MD CHEMISTRY ORDERABLES Performing Organization Address City/[facility]/ZIP Co de Phone Number [facility] [place] [address] * EKG 12 Lead (04/09/2023 11:06 PM EDT) Ventricular rate 63 BPM MUSE SYSTEM Atrial Rate 63 BPM MUSE SYSTEM P-R Interval 168 ms MUSE SYSTEM QRS Duration 160 ms MUSE SYSTEM Q-T Interval 476 ms MUSE SYSTEM QTC Calculated (Bezet) 487 ms MUSE SYSTEM Calculated P [place] 40 degrees MUSE SYSTEM Calculated R [place] -64 degrees MUSE SYSTEM Calculated T [place] 108 degrees MUSE SYSTEM INTERPRETATION AV dual-paced rhythm Abnormal ECG When compared with ECG of 09-APR-2023 21:51, Vent. rate has decreased BY ?? 5 BPM Confirmed by Ilia Gil MD ([id number]) on 04/12/2023 4:41:40 PM MUSE SYSTEM 04/09/2023 11:0 6 PM EDT 04/12/2023 4:41 PM EDT Delgado Sanches MD ECG ORDERABLES Performing Organization Address City/[facility]/ZIP Co de Phone Number MUSE SYSTEM * Heparin (unfractionated) Level (04/09/2023 10:19 PM EDT) Pathologist [facility] UF Heparin 0.46 IU/mL [facility] Comment: Heparin (anti-Xa) [...] Lab Delgado Sanches MD HEMATOLOGY ORDERABLE S [facility] [place] [address] * (ABNORMAL) Troponin (04/09/2023 10:19 PM EDT) Troponin-T, High Sensitivity 60(H) <=14 ng/L [facility] Comment: This patient's troponin T concentration [...] troponin value can be found in the [facility] Test Catalog Troponin - [facility] Test Catalog Reference: Fourth [place] Definition of Myocardial Infarction. Journal of the [place] [employer] 2018;72:9878-9302 Blood 04/09/2023 10:1 9 PM EDT 04/09/2023 10:37 PM EDT Narrative Resulting Agency Comment Spec In Lab Delgado Sanches MD CHEMISTRY ORDERABLES [facility] [address] * EKG 12 Lead (04/09/2023 9:51 PM EDT) Ventricular rate 68 BPM MUSE SYSTEM Atrial Rate 68 BPM MUSE SYSTEM P-R Interval 162 ms MUSE SYSTEM QRS Duration 164 ms MUSE SYSTEM Q-T Interval 492 ms MUSE SYSTEM QTC Calculated (Bezet) 523 ms MUSE SYSTEM Calculated P [place] 71 degrees MUSE SYSTEM Calculated R [place] -68 degrees MUSE SYSTEM Calculated T [place] 81 degrees MUSE SYSTEM INTERPRETATION AV dual-paced rhythm Abnormal ECG When compared with ECG of 08-APR-2023 18:57, Vent. rate has decreased BY ?? 3 BPM Confirmed by MD Sanches Danette ([id number]) on 04/11/2023 8:25:11 AM MUSE SYSTEM 04/09/2023 9:51 PM EDT 04/11/2023 8:25 AM EDT Robin Alvarado MD ECG ORDERABLES MUSE SYSTEM * (ABNORMAL) Troponin (04/09/2023 10:53 AM EDT) Troponin-T, High Sensitivity 84(H) <=14 ng/L [facility] Comment: This patient's troponin T concentration [...] troponin value can be found in the [facility] Test Catalog Troponin - [facility] Test Catalog Reference: Fourth [place] Definition of Myocardial Infarction. Journal of the [place] [employer] 2018;72:4228-5349 Blood 04/09/2023 10:5 3 AM EDT 04/09/2023 11:14 AM EDT Narrative Resulting Agency Comment Spec In Lab Delgado Sanches MD CHEMISTRY ORDERABLES Performing Organization Address City/[facility] Co de Phone Number [facility] [place] [address] * (ABNORMAL) Basic Metabolic Panel (non-fasting) (04/09/2023 10:53 AM EDT) Glucose 97 65 - 199 mg/dL [facility] Comment:Diabetes: >=200 mg/d L plus symptoms Blood Urea Nitrogen 9 8 - 18 mg/dL [facility] Creatinine 0.63(L) 0.70 - 1.20 mg/dL [facility] Sodium 140 135 - 145 mmol/L [facility] Potassium 4.1 3.5 - 5.0 mmol/L [facility] Comment: Please note: ??Patients with WBC >100,000 may have falsely elevated Potassium levels. ??For accurate Potassium quantification in these patients send serum separator tube (gold top) for subsequent determinations. ??Contact the Clinical Chemistry Laboratory if there are any questions. Chloride 107 98 - 107 mmol/L [facility] Carbon Dioxide 24 22 - 31 mmol/L [facility] Anion Gap 9 5 - 15 mmol/L [facility] Calcium 9.1 8.5 - 10.5 mg/dL [facility] Est Glomerular Filtration Rate 91 >=60 mL/min/1. 73 m?? [facility] Comment: This patient's estimated GFR was [...] Sanches MD CHEMISTRY ORDERABLES Performing Organization Address [facility] Co de Phone Number [facility] [address] * ECHO LMTD W CONTRAST W LMTD SPEC DOPP COLOR DOPP (04/09/2023 8:10 AM EDT) EF 45 HEARTLAB SYSTEM Anatomical Region Laterality Modality Cardiac Other 04/09/2023 7:37 AM EDT Narrative 04/09/2023 1:02 PM EDT ? Echocardiogram Report Name: ELENA THACKER ? Study Date: 04/09/2023 07:37 AMBP: 139/67 mmHg ? Patient Location: U^SS01^A : 1945 ? Height: 160 cm ? Account: [id number] Age: 77 yrs ? Weight: 81 kg Gender: Female ?BSA: 1.8 m2 Ordering Physician: DELGADO SANCHES Performed By: RAMON Choe Reason For Study: NSTEMI Exam Location: [facility]. Interpretation Summary Left ventricle is of normal [...] MR is more prominent. Procedure Limited - 97300. Color Doppler - 98216. limited spectral 94093. Image enhancement Optison was used for left [...] Study Date: 307:37 AMBP: 139/67 mmHg Patient Location:U^SS01^A : 1945 Height: 160 cm Account: [id number] Age: 77 yrs Weight: 81 kg Gender: Female BSA: 1.8 m2 Ordering Physician: DELGADO SANCHES Performed By: RAMON Choe Reason For Study: NSTEMI Exam Location: [facility]. Interpretation Summary Left ventricle is of normal [...] MR is more prominent. Procedure Limited - 03840. Color Doppler - 08607. limited spectral 89075. Imageenhancement Optison was used for left ventricular [...] EDT) Glucose 97 65 - 199 mg/dL [facility] Comment:Diabetes: >=200 mg/d L plus symptoms Blood Urea Nitrogen 10 8 - 18 mg/dL [facility] Creatinine 0.66(L) 0.70 - 1.20 mg/dL [facility] Sodium 139 135 - 145 mmol/L [facility] Potassium 4.2 3.5 - 5.0 mmol/L [facility] Comment: Please note: ??Patients with WBC >100,000 may have falsely elevated Potassium levels. ??For accurate Potassium quantification in these patients send serum separator tube (gold top) for subsequent determinations. ??Contact the Clinical Chemistry Laboratory if there are any questions. Chloride 107 98 - 107 mmol/L [facility] Carbon Dioxide 25 22 - 31 mmol/L [facility] Anion Gap 7 5 - 15 mmol/L [facility] Calcium 9.1 8.5 - 10.5 mg/dL [facility] Est Glomerular Filtration Rate 90 >=60 mL/min/1. 73 m?? [facility] Comment: This patient's estimated GFR was [...] In Lab Delgado Sanches [place] [address] * Differential, Automated (04/09/2023 7:05 AM EDT) Neutrophil % 62.6 % [facility] Neutrophil Absolute 3.35 1.70 - 6.10 x10(3)/[facility] Lymph % 28.2 % [facility] Lymphocytes Abs 1.5 0.9 - 3.2 x10(3)/[facility] Monocyte % 7.7 % [facility] Monocyte Abs 0.4 0.3 - 0.9 x10(3)/[facility] Eos % 0.9 % [facility] Eosinophils Abs 0.0 0.0 - 0.4 x10(3)/[facility] Basophil % 0.4 % [facility] Baso Absolute 0.0 0.0 - 0.1 x10(3)/[facility] Immature Gran % 0.20 % [facility] Comment: Immature granulocytes(IG's)percentage and absolute count will include metamyelocytes, myelocytes, and promyelocytes. Blood smears from CBCs yielding IG's will be scanned manually for concordance. If this scan disagrees with the automated IG or if promyelocytes are noted, a manual differential will be performed. Immature Gran Absolute 0.01 0.00 - 0.04 x10(3)/[facility] Blood 04/09/2023 7:05 AM EDT 04/09/2023 7:23 AM EDT Narrative Resulting Agency Comment Spec In Lab Neema Babin MD [place] [address] * Hemogram (04/09/2023 7:05 AM EDT) White Blood Cell 5.4 4.0 - 9.5 x10(3)/[facility] Red Blood Cell 4.29 4.00 - 5.21 x10(6)/[facility] Hemoglobin 13.6 11.7 - 15.5 g/dL [facility] Hematocrit 39.3 35.7 - 45.8 % [facility] Mean Cell Volume 91.6 82.6 - 94.4 fL [facility] Mean Cell Hemoglobin 31.7 27.1 - 32.0 pg [facility] Mean Cell Hemoglobin Concentration 34.6 31.7 - 35.0 g/dL [facility] Platelet 154 145 - 357 x10(3)/[facility] RDW Standard Deviation 42.7 37.0 - 46.0 fL [facility] RDW coefficient of variation 12.8 11.5 - 14.1 % [facility] Mean Platelet Volume 10.4 7.6 - 12.9 fL [facility] NRBC% auto 0.0 % [facility] NRBC Absolute 0.000 0.000 - 0.000 x10(3)/[facility] Blood 04/09/2023 7:05 AM EDT 04/09/2023 7:23 AM EDT Narrative Resulting Agency Comment Spec In Lab Neema Babin MD HEMATOLOGY ORDERABLE S [facility] [place] [address] * (ABNORMAL) BMP w/fasting Glucose (04/09/2023 7:05 AM EDT) Glucose Fasting 97 65 - 99 mg/dL [facility] Comment: ?Fasting* Glucose Interpretive Criteria Normal [...] of Diabetes Mellitus, Position Statement from the [place] [employer]. ??Diabetes Care, Volume 33, Supplement 1, Aug 2009 Blood Urea Nitrogen 10 8 - 18 mg/dL [facility] Creatinine 0.67(L) 0.70 - 1.20 mg/dL [facility] Sodium 137 135 - 145 mmol/L [facility] Potassium 4.1 3.5 - 5.0 mmol/L [facility] Comment: Please note: ??Patients with WBC >100,000 may have falsely elevated Potassium levels. ??For accurate Potassium quantification in these patients send serum separator tube (gold top) for subsequent determinations. ??Contact the Clinical Chemistry Laboratory if there are any questions. Chloride 104 98 - 107 mmol/L [facility] Carbon Dioxide 24 22 - 31 mmol/L [facility] Anion Gap 9 5 - 15 mmol/L [facility] Calcium 9.2 8.5 - 10.5 mg/dL [facility] Est Glomerular Filtration Rate 90 >=60 mL/min/1. 73 m?? [facility] Comment: This patient's estimated GFR was [...] In Lab Delgado Sanches MD CHEMISTRY ORDERABLES [facility] [place] [address] * XR Chest PA & Lateral (Generic) [...] who have questions please contact the health certified social workers in health care that requested your imaging first. ? Electronically signed by: Bettie Nieto MD, [facility] ([phone]), at 04/09/2023 7:12 AM Narrative 04/09/2023 7:12 AM EDT EXAMINATION: XR [...] patients who have questions please contactthe health certified social workers in health care that requested your imaging first. Delgado Sancehs MD IMG DX ORDERABLES * (ABNORMAL) Troponin (04/09/2023 4:00 AM EDT) Troponin-T, High Sensitivity 113(H) <=14 ng/L [facility] Comment: This patient's troponin T concentration [...] troponin value can be found in the [facility] Test Catalog Troponin - [facility] Test Catalog Reference: Fourth [place] Definition of Myocardial Infarction. Journal of the [place] [employer] 2018;72:6111-2293 Blood 04/09/2023 4:00 AM EDT 04/09/2023 4:24 AM EDT Narrative Resulting Agency Comment Spec In Lab Justina Tabor MD CHEMISTRY ORDERABLES [facility] [address] * (ABNORMAL) Troponin (04/08/2023 9:45 PM EDT) Troponin-T, High Sensitivity 100(H) <=14 ng/L [facility] Comment: This patient's troponin T concentration [...] troponin value can be found in the [facility] Test Catalog Troponin - [facility] Test Catalog Reference: Fourth [place] Definition of Myocardial Infarction. Journal of the [place] [employer] 2018;72:9891-8176 Blood 04/08/2023 9:45 PM EDT 04/08/2023 9:45 PM EDT Narrative Resulting Agency Comment Spec In Lab Robin Alvarado MD CHEMISTRY ORDERABLES [facility] [place] [address] * (ABNORMAL) Troponin (04/08/2023 7:20 PM EDT) Troponin-T, High Sensitivity 28(H) <=14 ng/L [facility] Comment: This patient's troponin T concentration [...] troponin value can be found in the [facility] Test Catalog Troponin - [facility] Test Catalog Reference: Fourth [place] Definition of Myocardial Infarction. Journal of the [place] [employer] 2018;72:2838-6136 Blood 04/08/2023 7:20 PM EDT 04/08/2023 7:25 PM EDT Narrative Resulting Agency Comment Spec In Lab Robin Alvarado MD CHEMISTRY ORDERABLES Performing Organization Address City/[facility] [place] [address] * EKG 12 Lead (04/08/2023 6:57 PM EDT) Ventricular rate 71 BPM MUSE SYSTEM Atrial Rate 55 BPM MUSE SYSTEM QRS Duration 166 ms MUSE SYSTEM Q-T Interval 504 ms MUSE SYSTEM QTC Calculated (Bezet) 547 ms MUSE SYSTEM Calculated R [place] -69 degrees MUSE SYSTEM Calculated T [place] 65 degrees MUSE SYSTEM INTERPRETATION Ventricular-pa mary rhythm Occasional AV dual-paced complexes and with premature ventricular or aberrantly conducted complexes Abnormal ECG When compared with ECG of 31-MAR-2023 16:23, Electronic ventricular pacemaker has replaced Sinus rhythm Vent. rate has increased BY ??28 BPM Confirmed by MD Sanches Danette ([id number]) on 04/11/2023 8:24:56 AM MUSE SYSTEM 04/08/2023 6:57 PM EDT 04/11/2023 8:24 AM EDT Robin Alvarado MD ECG ORDERABLES Performing Organization Address City/[facility] Co de Phone Number MUSE SYSTEM * ELECTROPHYSIOLOGY PROCEDURE (04/08/2023 3:47 PM EDT) Anatomical Region Laterality Modality Other Narrative 04/08/2023 6:43 PM EDT Table formatting from the original result was not included. DUAL CHAMBER PACEMAKER IMPLANTATION Sonography Technician: Robin Alvarado MD Fellow: Ke Trejo MD [...] the entire procedure. 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 Restart rivaroxaban anticoagulation in 72 hours. Follow up in EP clinic in 2 weeks. Procedures performed: dual chamber pacemaker implantation (cpt 72640) I have reviewed, edited and approve of the above procedure note. I was present for the entire procedure and I was present for the entire sedation time. Robin Alvarado MD [facility] Cardiac Electrophysiology 04/08/2023 6:38 PM Procedure Note Robin Alvarado MD - 04/08/2023 DUAL CHAMBER PACEMAKER IMPLANTATION Sonography Technician: Robin Alvarado MD Fellow: Ke Trejo MD [...] procedure time) [facility] and the [facility] closed in layers using 2-0, 3-0 and 4-0 absorbablesutures. The skin was closed using a sub-cuticular technique. Steri-stripsand a bio-occlusive dressing were applied to the skin. The patientremained hemodynamically stable, tolerated the procedure well and wastransferred in stable condition. Dr. Alvarado was present for andparticipated in the entire procedure. LEAD AND GENERATOR DATA: Electric Motor Assembler [employer] Tester Model # Serial # Generator [employer] [id number] Atrial Lead [employer] [id number] Ventricular Lead [employer] [id number] PACE/SENSE DATA: Sensed wave (mV) Threshold (V) [...] (cGycm2) 400 CONCLUSIONS: Successful implantation of a [employer] dual chamber pacemaker forsymptomatic bradycardia due to sinus node dysfunction and AV block. Restart rivaroxaban anticoagulation in 72 hours. Follow up in EP clinic in 2 weeks. Procedures performed: dual chamber pacemaker implantation (cpt 38771) I have reviewed, edited and approve of the above procedure note. I waspresent for the entire procedure and I was present for the entire sedationtime. Robin Alvarado MD S Cardiac Electrophysiology 04/08/2023 6:38 PM Robin Alvarado MD EP PROCEDURE ORDERAB LES * Differential, Automated (04/08/2023 1:11 PM EDT) Neutrophil % 51.3 % [facility] Neutrophil Absolute 2.80 1.70 - 6.10 x10(3)/[facility] Lymph % 38.3 % [facility] Lymphocytes Abs 2.1 0.9 - 3.2 x10(3)/[facility] Monocyte % 8.8 % [facility] Monocyte Abs 0.5 0.3 - 0.9 x10(3)/[facility] Eos % 0.9 % [facility] Eosinophils Abs 0.0 0.0 - 0.4 x10(3)/[facility] Basophil % 0.5 % [facility] Baso Absolute 0.0 0.0 - 0.1 x10(3)/[facility] Immature Gran % 0.20 % [facility] Comment: Immature granulocytes(IG's)percentage and absolute count will include metamyelocytes, myelocytes, and promyelocytes. Blood smears from CBCs yielding IG's will be scanned manually for concordance. If this scan disagrees with the automated IG or if promyelocytes are noted, a manual differential will be performed. Immature Gran Absolute 0.01 0.00 - 0.04 x10(3)/[facility] Blood 04/08/2023 1:11 PM EDT 04/08/2023 1:16 PM EDT Narrative Resulting Agency Comment Spec In Lab Meagan [facility] HEMATOLOGY ORDERABL ES Performing Organization Address City/State/[facility] Co de Phone Number [facility] [place] [address] * Hemogram (04/08/2023 1:11 PM EDT) White Blood Cell 5.5 4.0 - 9.5 x10(3)/[facility] Red Blood Cell 4.78 4.00 - 5.21 x10(6)/[facility] Hemoglobin 14.8 11.7 - 15.5 g/dL [facility] Hematocrit 44.0 35.7 - 45.8 % [facility] Mean Cell Volume 92.1 82.6 - 94.4 fL [facility] Mean Cell Hemoglobin 31.0 27.1 - 32.0 pg [facility] Mean Cell Hemoglobin Concentration 33.6 31.7 - 35.0 g/dL [facility] Platelet 186 145 - 357 x10(3)/[facility] RDW Standard Deviation 43.4 37.0 - 46.0 fL [facility] RDW coefficient of variation 12.8 11.5 - 14.1 % [facility] Mean Platelet Volume 10.3 7.6 - 12.9 fL [facility] NRBC% auto 0.0 % [facility] NRBC Absolute 0.000 0.000 - 0.000 x10(3)/[facility] Blood 04/08/2023 1:11 PM EDT 04/08/2023 1:16 PM EDT Narrative Resulting Agency Comment Spec In Lab Meagan AVILA HEMATOLOGY ORDERABL ES [facility] [place] [address] * (ABNORMAL) Basic Metabolic Panel (non-fasting) (04/08/2023 1:11 PM EDT) Glucose 100 65 - 199 mg/dL [facility] Comment:Diabetes: >=200 mg/d L plus symptoms Blood Urea Nitrogen 13 8 - 18 mg/dL [facility] Creatinine 0.69(L) 0.70 - 1.20 mg/dL [facility] Sodium 137 135 - 145 mmol/L [facility] Potassium 4.2 3.5 - 5.0 mmol/L [facility] Comment: Please note: ??Patients with WBC >100,000 may have falsely elevated Potassium levels. ??For accurate Potassium quantification in these patients send serum separator tube (gold top) for subsequent determinations. ??Contact the Clinical Chemistry Laboratory if there are any questions. Chloride 103 98 - 107 mmol/L [facility] Carbon Dioxide 22 22 - 31 mmol/L [facility] Anion Gap 12 5 - 15 mmol/L [facility] Calcium 9.6 8.5 - 10.5 mg/dL [facility] Est Glomerular Filtration Rate 89 >=60 mL/min/1. 73 m?? [facility] Comment: This patient's estimated GFR was [...] In Lab Janett Vidal MD CHEMISTRY ORDERABLES [facility] [place] [address] documented in this encounter Visit Diagnoses Diagnosis AV block Atrioventricular block, unspecified Bradycardia Other specified cardiac dysrhythmias PAF (paroxysmal atrial fibrillation) Atrial fibrillation Precordial pain Troponin level elevated Other abnormal blood chemistry NSTEMI (non-ST elevated myocardial infarction) Acute myocardial infarction, subendocardial infarction, episode of care unspecified Chest pain, unspecified type Pacemaker Cardiac pacemaker in situ AV block Atrioventricular block, unspecified Bradycardia Other [...] Given 04/10/2023 9:12 PM EDT 650 mg aspirin chewable tablet 81 mg 81 mg, Oral, DAILY, First dose on 04/09/23 at 1445, Until Discontinued, Routine Given 04/12/2023 9:33 AM EDT 81 mg Given 04/11/2023 8:37 AM EDT 81 mg Given 04/10/2023 8:51 AM EDT 81 mg BUpivacaine (pf) (Marcaine) (5 mg/mL) 0.5% injection 150 mg 150 mg (30 mL), Subcutaneous, ONCE, 1 dose, On 04/08/23 at 1515, EP (Intra-Procedure), Routine Given 04/08/2023 3:47 PM EDT 30 mLs 11- Chest (Left) calcium carbonate (TUMS) chewable tablet 1,000 mg 1,000 mg, Oral, EVERY 6 HOURS PRN, Starting on 04/10/23 at 0835, Until Tu04/12/23 at 1611, Heartburn, Routine Given 04/11/2023 8:36 AM EDT 1,000 mg Given 04/10/2023 9:12 PM EDT 1,000 mg Given 04/10/2023 8:53 AM EDT 1,000 mg ceFAZolin (Ancef) 2 g vial attach to sodium chloride 0.9% 100 mL Mini-Bag Plus 2 g, Intravenous, ONCE, 1 dose, On Tue04/08/23 at 1515, Administer over 30 Minutes, For use in the electrophysiology lab (EP lab) only with direct provider supervision and verbal order., EP (Intra-Procedure), Indication for (Active or Suspected): Prophylaxis New Bag 04/08/2023 3:43 PM EDT 2 g fentaNYL (PF) (50 mcg/mL) injection 25-50 mcg 25-50 mcg, Intravenous, EVERY 5 MIN PRN, Starting on Tue04/08/23 at 1453, Until 04/09/23 at 0052, Pain, As needed to induce or maintain moderate sedation per [facility] Moderate Sedation Policy for the duration of the EP procedure., As needed to induce or maintain moderate sedation per [facility] Moderate Sedation Policy for the duration of the EP procedure. For use in the electrophysiology lab (EP lab) only for procedural sedation with direct provider supervision and verbal order. RASS goal (-)2 to (-)3. Start at 25 mcg, Dose not to exceed 50 mcg/dose, 250 mcg/hr, or 20 mcg/kg per case., EP (Intra-Procedure), Routine Given 04/08/2023 5:34 PM EDT 25 mcg Given 04/08/2023 4:35 PM EDT 25 mcg Given 04/08/2023 4:21 PM EDT 12.5 mcg ferrous sulfate EC (FeroSul) tablet 325 mg 325 mg, Oral, EVERY 48 HOURS, First dose on 04/09/23 at 1700, Until Discontinued, DO NOT CRUSH OR OPEN. Take with food or water. , Routine Given 04/11/2023 4:18 PM EDT 325 mg Given 04/09/2023 4:44 PM EDT 325 mg iohexoL (Omnipaque) (350 mg/mL) solution 5-100 mL 5-100 mL, Intravenous, EVERY 5 MIN PRN, Starting on Tue04/08/23 at 1453, Until 04/09/23 at 0955, Per Protocol, Venogram, For use in the electrophysiology lab (EP lab) only with direct provider supervision and verbal order., EP (Intra-Procedure), Routine Given 04/08/2023 4:14 PM EDT 10 mLs isosorbide mononitrate CR (Imdur) tablet 30 mg 30 mg, Oral, EVERY MORNING, First dose on Tue04/11/23 at 1145, Until [...] Given 04/10/2023 5:08 AM EDT 50 mcg losartan (Cozaar) tablet 50 mg 50 mg, [...] Given 04/11/2023 12:32 PM EDT 25 mg midazolam (pf) (Versed) (1 mg/mL) injection 0.5-1 mg 0.5-1 mg, Intravenous, EVERY 5 MIN PRN, Starting on Tue04/08/23 at 1453, Until 04/09/23 at 0052, Anxiety, As needed to induce or maintain moderate sedation per [facility] Moderate Sedation Policy for the duration of the EP procedure., As needed to induce or maintain moderate sedation per [facility] Moderate Sedation Policy for the duration of the EP procedure. For use in the electrophysiology lab (EP lab) only for procedural sedation with direct provider supervision and verbal order. RASS goal (-)2 to (-)3. Dose not to exceed 1 mg per dose, 5 mg/hour, or 0.2 mg/kg per case., EP (Intra-Procedure), Routine Given 04/08/2023 5:34 PM EDT 1 mg Given 04/08/2023 4:07 PM EDT 1 mg Given 04/08/2023 3:42 PM EDT 1 mg potassium chloride ER (Klor-Con M) crystal [...] Discontinued, Routine 0852 (Given - Provider: Jeni Sunshine RN) 0837 (Given - Provider: Melba Haro RN) aspirin chewable tablet 81 mg 81 mg, Oral, DAILY, First dose on 04/09/23 at 1445, Until Discontinued, Routine 0851 (Given - Provider: Jeni Sunshine RN) 0837 (Given - Provider: Melba Haro RN) 0933 (Given - Provider: Melba Haro, MIKE) ferrous sulfate EC (FeroSul) tablet 325 mg [...] 1232 (Given - Provider: Melba Haro RN) 0655 (Given - Provider: Kari Armstrong, MIKE) levothyroxine (Synthroid) tablet 50 mcg 50 mcg, Oral, EVERY MORNING, First dose on 04/09/23 at 1500, Until Discontinued, Routine 0508 (Given - Provider: Landy Smith, MIKE) 0531 (Given - Provider: Landy Smith RN) 0655 (Given - Provider: Kari Armstrong, MIKE) losartan (Cozaar) tablet 50 mg 50 mg, [...] Haro RN) 0936 (Given - Provider: Melba Haro, MIKE) rivaroxaban (Xarelto) tablet 20 mg 20 mg, Oral, DAILY WITH DINNER, First dose on Tue04/11/23 at 1700, Until Discontinued, Routine, Restricted anticoagulant, choose the most appropriate response: Continuation of ongoing therapy 1619 (Given - Provider: Melba Haro, MIKE) rosuvastatin (Crestor) tablet 40 mg 40 mg, [...] Comment: UFH 0.38)1000 (Stopped - Provider: Nancy Schmidt, MIKE) nitroGLYcerin (200 mcg/mL) in dextrose 5% 250 [...] ) 0849 (Rate/Dose Change - Provider: Nancy Schmidt RN)1000 (Stopped - Provider: Nancy Schmidt RN) PRN Medication Order 04/10/2023 04/11/2023 04/12/2023 acetaminophen (Tylenol) tablet 650 mg 650 mg, Oral, EVERY 6 HOURS PRN, Starting on 04/10/23 at 1515, Until 04/12/23 at 1611, Pain, Maximum dose of acetaminophen is 4,000 mg from all sources in 24 hours. When ordered for pain, acetaminophen should be given even when other ordered pain medications are indicated. , Routine 1510 (Given - Provider: Jeni Sunshine RN)211 (Given - Provider: Landy Smith RN) 0836 [...] , Routine 0850 (Given - Provider: Jeni Sunshine, RN) calcium carbonate (TUMS) chewable tablet 1,000 mg 1,000 mg, Oral, EVERY 6 HOURS PRN, Starting on Tue04/10/23 at 0835, Until Tue04/12/23 at 1611, Heartburn, Routine 0853 (Given - Provider: Jeni Sunshine, RN)2112 (Given - Provider: Landy Smith RN) 0836 [...] Routine documented in this encounter Care Teams Photographic Aide Relationship Specialty Start Date End Date Vicenta Ndiaye APRN [address] [place] [address] PCP - General Family Medicine 03/11/21 documented as of this encounter
--- OUTSIDE RECORDS SUMMARY | 2024-05-04 01:41 | XMS_ITS | Encounter Summary ---
[place] [address] Care Team Providers Care Physics Department Chair Name Role Phone Vicenta Ndiaye APRN Primary Care Provider [phone] Encounter Details Date Type Department Care Team (Latest Contact Info) Description 03/24/2023 Travel Social History Tobacco Use Types Packs/Day Years Used Date Smoking Tobacco: Former Passive Smoke Exposure: Past Smokeless Tobacco: Never Comments:college student for a few months Alcohol Use Standard Drinks/Week Comments Yes 3 (1 standard drink = 0.6 oz pur e alcohol) Sex and Gender Information Value Date Recorded Sex Assigned at Not on file Gender Identity Not on file Sexual Orientation Not on file documented as of this encounter Plan of Treatment Upcoming Encounters Date Type Department Care Team (Late st Contact Info) Description 07/13/2024 10:00 AM [facility] Hospital Encounter Non-[place] [address] Arrived documented as of this encounter Visit Diagnoses Not on filedocumented in this encounter Care Teams Physics Department Chair Relationship Specialty Start Date End Date Vicenta Ndiaye APRN [address] [place] [address] PCP - General Family Medicine 03/11/21 documented as of this encounter
--- OUTSIDE RECORDS SUMMARY | 2024-05-04 01:41 | XMS_ITS | Encounter Summary ---
Author Organization [facility] [place] [address] Care Team Providers Care Youth Associate Name Role Phone Vicenta Ndiaye APRN Primary Care Provider [phone] Reason for Visit * Consultation (Routine) - Closed Specialty Diagnoses / Procedures Referred By Contact Referred To Contact Electrophysiology / Cardiology Diagnoses Bradycardia Mobitz (type) I (Wenckebach's) atrioventricular block Bradycardia; Mobitz type I, f/u Zio Patch results Rochelle Dooley MD [facility] [address] [place] [address] [facility] [address] [address] [place] [id number] Referral ID Status Reason Start Date Expiration Date V isits Requested Visits Authorized [id number] Closed Consult, Test & Treat 02/07/2023 02/07/2024 1 1 Encounter Details Date Type Department Care Team (Late st Contact Info) Description 03/31/2023 4:30 PM EDT Office Visit Cardiology at [address] [phone] Meagan Gonzalez PA [facility] [place] [address] Persistent atrial fibrillation; Atrial fibrillation, unspecified type; AV block; Bradycardia; PAF (paroxysmal atrial fibrillation) Social History Tobacco Use Types Packs/Day Years [...] Sign Reading Time Taken Comments Blood Pressure 177/82 03/31/2023 4:13 PM EDT Pulse 54 03/31/2023 4:13 PM EDT Temperature - - Respiratory Rate - - Oxygen Saturation 97% 03/31/2023 4:13 PM EDT Inhaled Oxygen Concentration - - Weight 82.1 kg (181 lb) 03/31/2023 4:13 PM EDT Height 160 cm (5' 3) 03/31/2023 4:13 PM EDT Body Mass Index 32.06 03/31/2023 4:13 PM EDT documented in this encounter Progress Notes * Meagan Gonzalez PA - 03/31/2023 4:30 PM EDT Images from the original note were not included. Cardiac Electrophysiology Clinic Visit Subjective: Patient ID: Elena Dave is a 77 y.o. female. Indication: Review Zio results HPI: 77 y.o. female with past medical history of paroxysmal atrial fibrillation on Xarelto, intermittent AV conduction disease, HTN, and hypothyroidism on levothyroxine, who presents to discuss results of a recent Zio monitor for evaluation of sinus bradycardia in the setting of chest discomfort. In January 2023, she was admitted for concern of NSTEMI and AV block. She underwent cardiac cath whichdemonstrated non-obstructive CAD. TTE demonstrated an LVEF of 60%. Review of her EKGs and cardiac monitoring demonstrate second degree AV block Mobitz I. She was discharged with a Zio that was notable for predominant SR (HR 47 - 89 bpm, avg 58 bpm in SR), no atrial fibrillation, 128 pauses with thelongest of 3.6 seconds, and 22 episodes of high grade AV block were reported. Symptom activations were associated with Wenckbach. Following a successful cardioversion in June 2021, Ms. Dave and Dr. Alvarado discussed the high likelihood of progressive AV conduction disease which would warrant a permanent pacemaker, especially if antiarrhythmics were considered for pAF management. She denies lightheadedness/dizziness, presyncope, katie syncope, SOB, or palpitations. Denies recurrent CP since discharge. No recent rashes, no recent headaches, no N/V/D. Originally from [place]. 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 Lives in [place], [place] with her ,Jaime. Has a Ivy Retriever named Arabella. Patient Active Problem List Diagnosis NSTEMI (non-ST elevated myocardial infarction) Atrial fibrillation Hypertension Hypothyroidism Medications: Current Outpatient Medications Medication Sig Dispense Refill ferrous sulfate (FeroSul) 325 mg (65 mg iron) tablet Take 325 mg by mouth every other day. rosuvastatin (Crestor) 40 mg tablet Take 1 tablet by mouth every evening. 90 tablet 3 aspirin 81 mg chewable tablet Take 81 mg by mouth daily. 30 tablet 3 nitroGLYcerin (Nitrostat) 0.[address] 1 tablet under the tongue every 5 minutes as needed for Chest pain. 90 tablet 12 losartan (Cozaar) 50 mg tablet Take 1 tablet by mouth daily. 30 tablet 3 levothyroxine (Synthroid) 50 mcg tablet Take 1 tablet by mouth daily. 30 tablet 3 multivitamin (THERAGRAN) Tablet Take 1 tablet by mouth daily. rivaroxaban (Xarelto) 20 mg Tablet Daily fish oil-omega-3 fatty acids 1,000 mg Capsule Take 2 g by mouth daily. Objective: Vitals: Vitals: 03/31/23 1613 BP: 177/82 BP Location (NBP): Left arm Patient Position: Sitting BP Cuff Sizes: Adult (25-34 cm) Pulse: 54 SpO2: 97% Weight: 82.1 kg (181 lb) Height: 160 cm (5' 3) Physical Exam: General- No acute distress, sitting comfortably in exam room chair HEENT- Head atraumatic, normocephalic Skin- Pocket incision is well healed. No evidence of erosion or need of revision Neck- No JVD noted Cardiovascular- S1/S2 regular rate and rhythm. No murmur, rub or gallop Lungs- Clear to auscultation bilaterally Extremities- Pulses equal bilaterally. No edema noted Neuro- A&Ox3 ECG in office today shows high grade AV block with a ventricular rate in the low 40s, QRS is 82ms, QT 492ms Cardiac Cath 02/07/2023 Conclusions: * Nonobstructive coronary artery disease Echo 02/07/2023 Interpretation Summary Left ventricular systolic function is normal. The left ventricular ejection fraction is 60% by Smith's biplane. There are no segmental wall motion abnormalities. The left atrium is mildly dilated. There is mild to moderate mitral regurgitation. Other details as noted below. 'Zio Patch' Ambulatory Cardiac Event Monitor Report Duration of recordin days, 12 hours (started on 02/07/2023) Indication: bradycardia Summary Data Predominant rhythm: Sinus rhythm Maximum sinus rate: 89 bpm Minimum sinus rate: 47 bpm (while in NSR) Average heart rate: 58 bpm Atrial fibrillation: None Pauses: 128 Pauses occurred, the longest lasting 3.6 secs (see below). Some Pauses occurred due to Second Degree AV Block-Mobitz I (Wenckebach), Atrial Tachycardia with block and Non-Conducted SVE(s). SecondDegree AV Block-Mobitz I (Wenckebach) was present. Wenckebach was detected within +/- 45 seconds ofsymptomatic patient event(s). 22 episode(s) of AV Block (High Grade and 3rd??) occurred, lasting a total of 2 mins 56 secs. Ectopic beats Isolated SVEs were rare (<1.0%), and no SVE Couplets or SVE Triplets were present. Isolated VEs were occasional (1.1%, 21417), VE Couplets were rare (<1.0%, 55), and VE Triplets were rare (<1.0%, 2). Ventricular Bigeminy (longest episode 8.8 sec) and Trigeminy (longest episode 28.7 sec) were present. Abnormal Tachycardias 1 run of Ventricular Tachycardia occurred lasting 4 beats with a max rate of 148 bpm (avg 139 bpm). Triggered and Patient Diary Events There were 5 triggered and 3 patient diary events: #diary events: -02/08/2023 at 7pm: chest pain/pressure for < 1 min. Sinus rhythm with 2nd degree AVB, type I (HR36-66 bpm) -02/12/2023 at 3:55 am, chest pain/pressure < 1 min, awoke from sleeping. Sinus rhythm with 2nd degree AVB, type I (HR 25-57) -02/13/2023 at 8:08 am: chest pain/pressure, < 1 min while doing dishes. Sinus rhythm with 2nd degree AVB, type I (HR 36-71) #triggered events: -additional episodes of sinus rhythm with 2nd degree AVB, type I Conclusion(s): The predominant rhythm is sinus rhythm. There are multiple pauses (128 that were 3 sec or longer) noted throughout the recording. The longest pause was 3.6 sec. The majority of these pauses occur during episodes of 2nd degree AV block typeI (Wenckebach) with sample tracings ahead. Some of the episodes were associated with symptoms - although the symptoms were chest pain/pressure lasting for < 1 min. No lightheadedness, dizziness, presyncope or syncope reported. There were a few episodes of high degree AV block noted as well (2:1 block, difficult to distinguish from 3rd degree). Rare ectopy. One brief episode of NSVT (4 beats). Symptoms and triggered events as noted with chest pain/pressure < 1 min around the time of 2nd degree AVB, type I. Other details can be found in the linked PDF. Sedation evaluation: Mallampati class: II: tonsillar pillars are blocked by the tongue ASA: 1: Normally healthy patient Assessment and Plan: 77 y.o. female with past medical history of paroxysmal atrial fibrillation on Xarelto, intermittentAV conduction disease, HTN, and hypothyroidism who presents to discuss results of a recent Zio monitor which demonstrated predominant SR with frequent episodes of 2:1 AV block as well as pauses up to3.6 seconds, and presents in high grade AV block on EKG today. Given her progressive conduction disease (especially, when compared to 2020 Holter), we discussed permanent pacing. She has a normal LVEF. Physiologic pacing may be considered given expectation for [employer] pacing >> 40%. Benefits and risks of device implantation discussed, including but not limited to infection requiring explantation of all hardware, bleeding requiring blood transfusion, damage to any existing leads,hemothorax, pneumothorax requiring chest tube placement, vascular or myocardial damage/perforation requiring endovascular or surgical repair, tamponade, lead dislodgment, DVT requiring coumadin anticoagulation, device recall, post-device syncope and the possible need for an early surgical revision.The use of sedation and/or anesthesia was discussed, involving additional risks of respiratory depression, hypoxia, and hypotension. Pt advised that acute complications are avoided approx 95% of the t tanner. Post-procedure limitations including activity restriction (arm lifting and movement, carrying)and driving restrictions were discussed with the patient. The patient's questions were answered . She has not had presyncope or katie syncope, therefore the implant is not emergent. However, we discussed that if she does experience aforementioned symptoms, or new SOB or CP, we recommend emergent medical evaluation for expedited pacemaker implant. [facility] she prefers to wait until next week. Plan: 1. Schedule left-sided dual-chamber pacemaker - Abx: Ancef - Temp pacing: Not currently indicated - AC: on Xarelto - Sed: Moderate I appreciate the opportunity to be involved with Ms. Dave's care. Please do not hesitateto contact EP with any further questions (pager [phone]). The above case was discussed with EP consultattending, Tae Quinteros MD. MARGARITA Saul 5:30 PM 03/31/23 documented in this encounter Plan of Treatment Upcoming Encounters Date Type Department Care Team (Late st Contact Info) Description 07/13/2024 10:00 AM EST Hospital Encounter [place] [phone] Arrived documented as of this encounter Procedures Procedure Name Priority Date/Time Associated Diagnosis Comments EKG 12-LEAD Routine 03/31/2023 4:23 PM EDT Atrial fibrillation, unspecified type documented in this encounter Results * EKG 12 Lead (03/31/2023 4:23 PM EDT) Ventricular rate 43 BPM MUSE SYSTEM Atrial Rate 39 BPM MUSE SYSTEM QRS Duration 82 ms MUSE SYSTEM Q-T Interval 492 ms MUSE SYSTEM QTC Calculated (Bezet) 415 ms MUSE SYSTEM Calculated R [place] 57 degrees MUSE SYSTEM Calculated T [place] -15 degrees MUSE SYSTEM INTERPRETATION Sinus rhythm with high degree AV block and Mobitz I conduction with junctional escape beats Nonspecific ST and T wave abnormality Abnormal ECG When compared with ECG of 07-FEB-2023 07:44, AV block has progressed Borderline criteria for Anterior infarct are no longer Present Confirmed by MD Ellie, Dianelys (Alka) on 04/03/2023 10:36:06 AM MUSE SYSTEM 03/31/2023 4:23 PM EDT 04/03/2023 10:36 AM EDT Tae Quinteros MD ECG ORDERABLES MUSE SYSTEM documented in this encounter Visit Diagnoses Diagnosis Persistent atrial fibrillation Atrial fibrillation Atrial fibrillation, unspecified type AV block Atrioventricular block, unspecified Bradycardia Other specified cardiac dysrhythmias PAF (paroxysmal atrial fibrillation) Atrial fibrillation documented in this encounter Care Teams Youth Associate Relationship Specialty Start Date End Date Vicenta Ndiaye APRN [address] [place] [address] PCP - General Family Medicine 03/11/21 documented as of this encounter
--- OUTSIDE RECORDS SUMMARY | 2024-05-04 01:41 | XMS_ITS | Encounter Summary ---
Author Organization Formerly [facility], [facility] [place] [address] Care Team Providers Care Certified Fire Investigator Name Role Phone Senthil Vicenta DAILEY Primary Care Provider [phone] Reason for Referral * Consultation (Routine) - Closed Specialty Diagnoses / Procedures Referred By Contact Referred To Contact Electrophysiology / Cardiology Diagnoses Bradycardia Mobitz (type) I (Wenckebach's) atrioventricular block Bradycardia; Mobitz type I, f/u Zio Patch results Rochelle Dooley MD [facility] [place] [address] [facility] Cardiology [address] [place] [phone] Referral ID Status Reason Start Date Expiration Date V isits Requested Visits Authorized [id number] Closed Consult, Test & Treat 02/07/2023 02/07/2024 1 1 * Diagnostic Test (Routine) - Closed Specialty Diagnoses / Procedures Referred By Contac t Referred To Contact Cardiology Diagnoses Bradycardia Procedures Ziopatch 48 Hrs-15 Days Rochelle Dooley MD [facility] [place] [address] [facility] [place] [address] Referral ID Status Reason Start Date Expiration Date V isits Requested Visits Authorized [id number] Closed Specialty Service Requested 02/07/2023 02/07/2024 1 1 Reason for Visit * Auth/Cert Specialty Diagnoses / Procedures Referred By Contac t Referred To Contact Diagnoses NSTEMI (non-ST elevated myocardial infarction) n-stemi Procedures EMERGENCY IPI Alie Gil MD [facility] [place] [address] [facility] Referral ID Status Reason Start Date Expiration Date Visits Re quested Visits Authorized [id number] 1 1 Encounter Details Date Type Department Care Team (Latest Contact Info) Description 02/06/2023 3:01 PM EDT - 02/07/2023 8:57 PM EDT Hospital Encounter Heart and Vascular Unit Level 4 Wing B at [place] [phone] Alie Gil MD [facility] [place] [address] Non-ST elevation myocardial infarction (NSTEMI); Bradycardia; Mobitz (type) I (Wenckebach's) atrioventricular block Discharge Disposition: Home Social History Tobacco Use [...] Sign Reading Time Taken Comments Blood Pressure 138/66 02/07/2023 7:42 PM EDT Pulse 39 02/07/2023 7:42 PM EDT Temperature 36.7 ??C (98.1 ??F) 02/07/2023 3:58 PM ED T Respiratory Rate 16 02/07/2023 3:58 PM EDT Oxygen Saturation 96% 02/07/2023 11:01 AM EDT Inhaled Oxygen Concentration - - Weight 79.9 kg (176 lb 2.4 oz) 02/07/2023 2:38 A M EDT Height 160 cm (5' 3) 02/06/2023 3:00 PM EDT Body Mass Index 31.2 02/06/2023 3:00 PM EDT documented in this encounter Discharge Summaries * Alie Gil MD - 02/07/2023 5:00 PM EDT [facility] [place] Summary Patient Name: Elena Thacker Patient Age: 77 y.o. Date: 1945 Admit Date: 02/06/2023 Discharge Date: 02/07/2023 Attending Physician: Alie Gil MD Follow-up Recommendations for Providers: - Please follow up on Ziopatch results - Please follow up on patient's TSH in 6 weeks once on standard dosing for levothyroxine Discharge Diagnoses (Hospital Problems) and Secondary Diagnoses (Chronic Problems): Active Hospital Problems Diagnosis NSTEMI (non-ST elevated myocardial infarction) Resolved Hospital Problems No resolved problems to display. Operations/Major Procedures: 02/07/23 [facility] Hemodynamics Left Heart Pressures Resting: Syst Diast EDP a v m Ao 131 61 90 LV 134 10 Dominance: Right Left Main The left main was normal, free of disease. Left Anterior Descending There was mild diffuse (<=25% stenosis) disease of the entire vessel segment of the left anterior descending artery (LAD). Left Circumflex The left circumflex (LCX) was normal, free of disease. Right Coronary Artery The right coronary artery (RCA) was normal, free of disease. Vascular Access Mechanical Compression of the right radial artery access site was performed. Conclusions Nonobstructive coronary artery disease History of Presentation: Elena Thacker is a 77 y.o. female with a history of pAfib s/p DCCV in 2020 currently on Xarelto, known sinus and AV conduction node disease, HTN, HLD, hypothyroidism and extensive family history of cardiac disease who presents in transfer from [facility] with NSTEMI and asymptomatic sinus bradycardia. Elena reports she developed substernal chest pressure upon ambulating to the kitchen this morning;10/10, radiating to her neck and associated with diaphoresis, no n/v, lightheadedness or dizziness.She plays pickle ball several times a week with her where her average HR is 114 and can notrecall any episodes of chest pressure. She presented to EMS after the pain became unrelenting this AM, no alleviating factors attempted. On arrival to [facility]: VSS 151/57, HR 40- 55, SpO2 97% on RA Labs WBC nl HgB 15, plts 180 Cr 0.9 Trp I 86--> 196.1 Initial EKG with wenckebach, no other acute ST seg changes, 2nd EKG with Mobitz II, no ST seg changes. CXR w/o intrapulmonary process or vascular congestion Interventions ASA 325 Lipitor 40 mg Nitro patch x1 Heparin bolus + gtt On arrival [place] [facility], she denies any ongoing chest pain. In regard to her afib, her PCP stopped her crestor and xarelto several months ago after she reported no longer having an afib burden, however inthe last week she resumed her xarelto after she noticed some intermittent palpitations. In the lastfew months her apple watch has frequently sent notifcations regarding her HR sustaining <50 bpm.She denies any associated lightheadedness, dizziness or fatigue. She denies orthopnea, PND, or bilateral lower extremity edema. Known family hx of heart disease with prior AL in her father and idiopathic hypertrophic subaortic stenosis in her mother. She smokes for two years in college and her parents were lifetime smokers. No alcohol, no drugs. Of note, patient saw Dr. Alvarado in 2020 following DCCV for Afib with post- procedural EKG showing sinus bradycardia and AV wenckebach. She was recommended PM prior to considering medications such as dofetilide or ablation; this was deferred and she was advised that her AV and sinus node dysfunction would likely worsen. Hospital Course: Elena Thacker is a 77 y.o. female with past medical history significant for pAfib s/p DCCV in 2020 currently on Xarelto, Sinus and AV node conduction disease, HTN, HLD, hypothyroidism and extensive family history of cardiac disease who presented to on 02/06/2023 in transfer from [facility] with concern for NSTEMI and asymptomatic AV block. She was discharged on HD#1 following catheterization without significant coronary obstruction. #MINOCA #NSTEMI #hx of Pafib #Asymptomatic bradycardia with AV block, likely Mobitz I Patient initially presented without respiratory distress, clear lung exam, normal JVP, without peripheral edema. TTE with EF of 60%, without segmental wall motion abnormalities, mildly dilated left atrium, and mild to moderate mitral regurgitation. Left heart cath without evidence of obstructive disease, therefore unclear cause, possible vasospastic/microvascular/endothelial dysfunction; consideraddition of anti-spasm medication in outpatient setting of symptoms recur. D-dimer negative, and she is chronically anticoagulated. Her EKGs and telemetry were reviewed by EP and were considered consistent with Mobitz type 1; no indication for pacing at this time, particularly in absence of any symptoms of bradycardia; Ziopatch recommended. She was discharged on her home xaralto, rosuvastatin, started on aspirin, and had her losartan-HCTZ stopped in place of losartan 50mg given her lower blood pressures while off therapy. Statin therapy intensity was increased. #Hypothyroidism Patient's home levothyroxine dose was reported as 68.5mcg. She shared that she splits a tablet in half daily. Her TSH was within normal limits at 1.95, down from the year prior, however given the small size of levothyroxine tablets, she was offered opportunity to change dosing to one of the standard doses for more consistent dosing. She elected to trial 50mcg given she did not want to risk going back into atrial fibrillation, understanding that her heart rate was lower than typical at present. She was instructed to discuss this change with her PCP and recheck her TSH in 6 weeks to ensure she was still euthyroid. Important Studies and Lab Data: CBC: Recent Labs 02/07/23 0627 02/06/23 1710 WBC 3.9* 5.2 HGB 14.8 14.7 HCT 44.1 43.1 PLATELET 158 192 NEUTROABS 1.53* 2.29 Chemistry: Recent Labs 02/06/23 1710 NA 136 K 4.2 CL 101 CO2 24 BUN 15 CREATININE 0.68* GLUCOSE 100 ANIONGAP 11 Recent Labs 02/06/23 1710 CALCIUM 9.6 9.6 MAGNESIUM 0.87 LFT's: No results for input(s): BILITOT, BILIDIR, ALBUMIN, ALKPHOS, ALT, AST in the last 7068 hours. Coags: Recent Labs 02/06/23 1710 PT 17.0* INR 1.5 PTT >160* Recent Labs 02/06/23 1710 INR 1.5 Cardiac enzymes: Recent Labs 02/06/23 1710 PROBNP 529* Endocrine: Recent Labs 02/06/23 1710 TSH 1.95 Recent Labs 02/06/23 1710 HA1C 5.6 Lipids: Lab Results Component Value Date CHLPL 166 02/06/2023 CHLPL 166 02/06/2023 HDL 61 02/06/2023 HDL 61 02/06/2023 CHOLHDL 2.7 02/06/2023 CHOLHDL 2.7 02/06/2023 TRIG 62 02/06/2023 TRIG 62 02/06/2023 LDLCHOL 93 02/06/2023 LDLDIRECT 95 02/06/2023 Radiology/Studies: TTE 02/07/23 Interpretation Summary Left ventricular systolic function is normal. The left ventricular ejection fraction is 60% by Smith's biplane. There are no segmental wall motion abnormalities. The left atrium is mildly dilated. There is mild to moderate mitral regurgitation. Other details as noted below. Cath 02/07/23: Hemodynamics: Left Heart Pressures Resting: Syst Diast [...] performed. Conclusions: * Nonobstructive coronary artery disease Pending Studies and Lab Data: No current labs Discharge Conditions/Prognosis: Upon discharge the patient is hemodynamically stable, fully ambulatory without requiring supplemental oxygen, holding down food/drink, afebrile and pain free. Discharge To: home without services Discharge Medications: Your Medications New Medications Dose Details aspirin 81 mg chewable tablet Take 81 mg by mouth daily. Start taking on: February 08, 2023 81 mg Quantity: 30 tablet Refills: 3 losartan 50 mg tablet Commonly known as: Cozaar Take 1 tablet by mouth daily. 50 mg Quantity: 30 tablet Refills: 3 nitroGLYcerin 0.4 mg sublingual tablet Commonly known as: Nitrostat Place 1 tablet under the tongue every 5 minutes as needed for Chest pain. 0.4 mg Quantity: 90 tablet Refills: 12 Continued medications with new dosing Dose Details levothyroxine 50 mcg tablet Commonly known as: Synthroid Take 1 tablet by mouth daily. What changed: medication strength how much to take 50 mcg Quantity: 30 tablet Refills: 3 rosuvastatin 40 mg tablet Commonly known as: Crestor Take 1 tablet by mouth every evening. What changed: medication strength how much to take how to take this when to take this 40 mg Quantity: 90 tablet Refills: 3 Continued medications, unchanged Dose Details fish oil-omega-3 fatty acids 1,000 mg capsule Commonly known as: Fish Oil Take 2 g by mouth daily. 2 g Refills: 0 multivitamin Tablet Commonly known as: THERAGRAN Take 1 tablet by mouth daily. 1 tablet Refills: 0 rivaroxaban 20 mg tablet Commonly known as: Xarelto Daily Refills: 0 STOPPED Medications losartan-hydroCHLOROthiazide 100-12.5 mg tablet Commonly known as: Hyzaar Updated Allergies/ADRs: Allergies Allergen Reactions Diflunisal Ezetimibe Quinapril Instructions Given to Patient at Discharge: Patient Instructions DISCHARGE INSTRUCTIONS FOR HOME Why you were hospitalized You were admitted to the hospital for chest pressure with concern for a heart attack. You underwenta procedure called catheterization which did not see any blockages in your heart vessels that couldhave caused a heart attack. Additionally, an ultrasound of your heart did not show any signs of damage. It is not clear why you had chest pressure, but it is possible that your vessels had spasms. You were also noted to have a low heart rate with an irregular rhythm. You will be asked to wear a ZioPatch to track the rhythm of your heart and see if any concerning features show up. Please follow upwith the electrophysiology cardiology team after completing the ZioPatch to discuss these results. New Medications: - aspirin - losartan - nitroglycerin Medication Changes: - Levothyroxine from 68.5mcg to 50mcg (so you don't need to split a tablet) - Rosuvastatin (dose increase) Stopped Medications: - Losartan-hydrochlorothiazide When you should contact a provider Call your doctor or seek medical attention if you develop the following - chest pain, shortness of breath, feeling dizzy upon standing, passing out, diarrhea, constipation lasting longer than 2 days,fevers (temperature over 100.3), chills, abdominal pain, vomiting, difficulty or discomfort when urinating, bloody or black bowel movements, or any other acute or concerning symptoms. Other instructions Activity No restrictions Diet As before hospitalization Driving As before hospitalization Shower Permitted Wound Care None Home O2 None Follow-Up Appointments Please call your PCP to schedule a follow up appointment. Please call the electrophysiology team if they do not reach out in 1 week to schedule you for a follow up appointment. Your Inpatient Doctor: ALIE GIL Your Primary Care Provider: Vicneta Ndiaye APRN [phone] For questions regarding this document or issues relating to this hospitalization on the Medical Service, please contact your inpatient physician through the [facility] [employer] . Issues afterhours and on weekends will be handled by the providers on-call. General Instructions None Future Appointments and Orders Future Orders Complete By Morales Foster 48 Hrs-15 Days [[id number] CPT(R)] 02/07/2023 08/09/2023 Process Instructions: Scheduling Instructions: Questions: Does the patient have a pacemaker? If yes provide HI/LO settings: Apply for 7 or 14 days?: 14 Where will study be performed?: [facility] Referral to Cardiac Electrophysiology [REF11 Custom] As directed Process Instructions: If no progress note charted, please enter Clinical details in comments. Scheduling Instructions: Questions: My question or request is: Bradycardia; Mobitz type I, f/u Zio Patch results Provider Contact Information: Rochelle [place] [address] Discharge References/Attachments: Discharge References/Attachments Cardiac Catheterization: Left (Lithuanian) For questions regarding this document or issues relating to this hospitalization on the Medical Service, please contact your inpatient physician through the [facility] [employer] . Issues afterhours and on weekends will be handled by the house staff on-call. Signed: Rochelle Dooley MD 02/07/2023 documented in this encounter Discharge Instructions * Patient Instructions* Rochelle Dooley MD - 02/07/2023 4:47 PM EDT DISCHARGE INSTRUCTIONS FOR HOME Why you were hospitalized You were admitted to the hospital for chest pressure with concern for a heart attack. You underwenta procedure called catheterization which did not see any blockages in your heart vessels that couldhave caused a heart attack. Additionally, an ultrasound of your heart did not show any signs of damage. It is not clear why you had chest pressure, but it is possible that your vessels had spasms. You were also noted to have a low heart rate with an irregular rhythm. You will be asked to wear a ZioPatch to track the rhythm of your heart and see if any concerning features show up. Please follow upwith the electrophysiology cardiology team after completing the ZioPatch to discuss these results. New Medications: - aspirin - losartan - nitroglycerin Medication Changes: - Levothyroxine from 68.5mcg to 50mcg (so you don't need to split a tablet) - Rosuvastatin (dose increase) Stopped Medications: - Losartan-hydrochlorothiazide When you should contact a provider Call your doctor or seek medical attention if you develop the following - chest pain, shortness of breath, feeling dizzy upon standing, passing out, diarrhea, constipation lasting longer than 2 days,fevers (temperature over 100.3), chills, abdominal pain, vomiting, difficulty or discomfort when urinating, bloody or black bowel movements, or any other acute or concerning symptoms. Other instructions Activity No restrictions Diet As before hospitalization Driving As before hospitalization Shower Permitted Wound Care None Home O2 None Follow-Up Appointments Please call your PCP to schedule a follow up appointment. Please call the electrophysiology team if they do not reach out in 1 week to schedule you for a follow up appointment. Your Inpatient Doctor: ALIE GIL Your Primary Care Provider: Vicenta Ndiaye, ASIM [phone] For questions regarding this document or issues relating to this hospitalization on the Medical Service, please contact your inpatient physician through the [facility] [employer] . Issues afterhours and on weekends will be handled by the providers on-call. * Attachments The following attachments cannot be sent through Care Everywhere. * Cardiac Catheterization: Left (Lithuanian) documented in this encounter Medications at Time of Discharge Medication Sig Dispensed Refills Start Date End Date nitroGLYcerin (Nitrostat) 0.[address] 1 tablet under the tongue every 5 minutes as needed for Chest pain. 90 tablet 12 02/07/2023 levothyroxine (Synthroid) 50 mcg tablet Take 1 tablet by mouth daily. 30 tablet 3 02/07/2023 multivitamin (THERAGRAN) Tablet Take 1 tablet by mouth daily. rivaroxaban (Xarelto) 20 mg Tablet Take 20 mg by mouth daily. 09/08/2020 rosuvastatin (Crestor) 40 mg tablet Take 1 tablet by mouth every evening. 90 tablet 3 02/07/2023 09/15/2023 aspirin 81 mg chewable tablet Take 81 mg by mouth daily. 30 tablet 3 02/08/2023 04/12/2023 losartan (Cozaar) 50 mg tablet Take 1 tablet by mouth daily. 30 tablet 3 02/07/2023 04/12/2023 fish oil-omega-3 fatty acids 1,000 mg Capsule Take 2 g by mouth daily. 04/07/2023 documented as of this encounter Progress Notes * Alie Gil MD - 02/07/2023 7:17 AM EDT Cardiovascular Medicine Progress Note Patient info: Elena Thacker 77 y.o. : 1945 Date of Admission: 02/06/2023 ( Hospital Day 1 day ) Responsible Attending: Alie Gil MD PCP: Vicenta Ndiaye APRN ([phone]) No chief complaint on file. ID: Elena Thacker is a 77 y.o. female with past medical history significant for pAfib s/p DCCV in 2020 currently on Xarelto, Sinus and AV node conduction disease, HTN, HLD, hypothyroidism and extensive family history of cardiac disease who presented to on 02/06/2023 in transfer from [facility] with concern for NSTEMI and asymptomatic AV block. Now on HD#1 undergoing further workup and treatment. Subjective NAEON. Troponin downtrended to 78. In the evening, increased synthroid from 12.5 -> 68.5 to reflect true home dose. No CP, palpitations, lightheadedness, vision changes. Vitals Last value Range last 24 hrs Temperature Temp: 36.7 ??C (98.1 ??F) Temp: [36.3 ??C (97.4 ??F)-36.7 ??C (98.1 ??F)] Heart Rate Heart Rate: 70 Heart Rate: [43-70] Blood Pressure BP: 152/73 BP: (117-152)/(58-80) Respiratory Rate Resp: 16 Resp: [16-18] SpO2 SpO2: 97 % SpO2: [95 %-98 %] Oxygen Delivery Oxygen Therapy O2 Device: Nasal cannula O2 Flow Rate (L/min): 2 L/min Intake/Output Summary (Last 24 hours) at 02/07/2023 0718 Last data filed at 02/07/2023 0400 Gross per 24 hour Intake 527.9 ml Output 950 ml Net -422.1 ml Body mass index is 31.2 kg/m??. Patient Vitals for the past 168 hrs: Weight 02/07/23 0238 79.9 kg (176 lb 2.4 oz) 02/06/23 1500 80.7 kg (177 lb 14.6 oz) Admit wt: 80.7 kg Physical Exam General: AAOx3, no acute distress HEENT: EOMI, anicteric sclera, MMM CV: RRR, without murmurs, rubs, or gallops; unable to assess JVD 2/2 neck circumference Respiratory: Non-labored, clear to auscultation bilaterally; No wheezes, rhonchi, rales Abd: soft, nontender, nondistended, no rebound tenderness or guarding, normoactive bowel sounds Neuro: CN II-XII grossly intact, normal strength, normal sensation, without focal deficits Skin: normal temperature and turgor, no cyanosis, no lesions, rashes, or petechiae Musculoskeletal: no joint swelling or pain Ext: no edema, 2+ peripheral pulses Labs CBC: Recent Labs 02/07/23 0627 02/06/23 1710 WBC 3.9* 5.2 HGB 14.8 14.7 HCT 44.1 43.1 PLATELET 158 192 NEUTROABS 1.53* 2.29 Chemistry: Recent Labs 02/06/23 1710 NA 136 K 4.2 CL 101 CO2 24 BUN 15 CREATININE 0.68* GLUCOSE 100 ANIONGAP 11 Recent Labs 02/06/23 1710 CALCIUM 9.6 9.6 MAGNESIUM 0.87 LFT's: No results for input(s): BILITOT, BILIDIR, ALBUMIN, ALKPHOS, ALT, AST in the last 7068 hours. Coags: Recent Labs 02/06/23 1710 PT 17.0* INR 1.5 PTT >160* Recent Labs 02/06/23 1710 INR 1.5 Cardiac enzymes: Recent Labs 02/06/23 1710 PROBNP 529* Endocrine: Recent Labs 02/06/23 1710 TSH 1.95 Recent Labs 02/06/23 1710 HA1C 5.6 Lipids: Lab Results Component Value Date CHLPL 166 02/06/2023 CHLPL 166 02/06/2023 HDL 61 02/06/2023 HDL 61 02/06/2023 CHOLHDL 2.7 02/06/2023 CHOLHDL 2.7 02/06/2023 TRIG 62 02/06/2023 TRIG 62 02/06/2023 LDLCHOL 93 02/06/2023 LDLDIRECT 95 02/06/2023 Heme: No results for input(s): LDH, HAPTOGLOBIN, URICACID in the last 168 hours. ABG (Arterial Blood Gas): No results found for: PHART, PO2ART, CQX8BSE, ATC8LXY VBG (Venous Blood Gas): No results for input(s): PHVEN, BYW3AKF, PO2VEN, KNL4BXT, BEVEN, NXV3QYE in the last 72 hours. Vascular No results found for: VBTEXTRPT Microbiology Blood: No results found for: BLOODCX Urine: No results found for: URINECULTURE Sputum: No results found for: GRAMSTAIN, BFCX, LOWERRESPCX, TISSUECX Body Fluid: No results found for: BFCX Medications Scheduled: rosuvastatin 40 mg Oral QPM sodium chloride 0.9 % (flush) 5 mL Intravenous BID sodium chloride 0.9 % (flush) 5 mL Intravenous BID aspirin 81 mg Oral Daily clopidogreL 75 mg Oral Daily levothyroxine 68.5 mcg Oral QAM Continuous: heparin (porcine) infusion 650 Units/hr (02/07/23 0400) PRN: sodium chloride 0.9 % (flush), lidocaine, nitroGLYcerin, sodium chloride 0.9 % (flush), heparin (porcine) infusion AND heparin (porcine) Imaging/Diagnostics No results found for this visit on 02/06/23. EKG No results found for: DIAGLINE, QTCCALC Assessment & Plan: Elena Thacker is a 77 y.o. female with past medical history significant for pAfib s/p DCCV in 2020 currently on Xarelto, Sinus and AV node conduction disease, HTN, HLD, hypothyroidism and extensive family history of cardiac disease who presented to on 02/06/2023 in transfer from [facility] with concern for NSTEMI and asymptomatic AV block. Now on Day #1 undergoing further workup and treatment. Today 02/07/2023: Cardiac catheterization today without evidence of obstructive disease. Stopping plavix. TTE with EF of 60%, without segmental wall motion abnormalities, mildly dilated left atrium, and mild to moderate mitral regurgitation. Unclear cause, possible vasospastic in the setting of her c onduction abnormality. Other cause for her chest pressure and diaphoresis could be PE, although no SOB or tachypnea. Given Well's score, will order d-dimer and pending that result consider further workup. Given her EKG findings concerning for Mobitz II vs I, EP favored Wenckebach pattern and recommended Zio on discharge, but did not recommend a device at this time. #MINOCA #hx of Pafib #Asymptomatic AV block, likely Mobitz II HbA1c, TSH, Lipids WNL DDX: Microvascular vasospastic process endothelial dysfunction TTE EF 60%, w/o WMA, mildly dilated LA, mild to moderate MR DDX: ischemic v. Fibrotic - Heparin gtt - ASA 81mg - Rosuvastatin 40mg daily - Hold beta blockade - Hold home xarelto - Nitroglycerin 0.4mg SL as needed for chest pain - Telemetry monitoring [ ] Zio on d/c [ ] f/u d-dimer #Hypothyroidism - Continue levothyroxine 68.5 mg, (home tirosint) Discussed Advanced Directives and Code Status. The patient wishes to be Attempt Cardiopulmonary Resuscitation - Inpatient Housekeeping DVT Ppx: DOAC GI Ppx: Bowel Ppx: Diet: NPO diet (Give Meds) Lines: Peripheral IV Line - Single Lumen 02/06/23 1000 median cubital vein (antecubital fossa), right 20 gauge (Active) Number of days: 0 Code status: Attempt Cardiopulmonary Resuscitation - Inpatient Rochelle Dooley MD, PGY1 02/07/2023 Cardiology Service CARDIOLOGY STAFF NOTE I have personally interviewed and examined the patient and reviewed appropriate data, including labs, ECGs and other diagnostic studies. I agree with the principal findings documented above. The assessment and plan were formulated in discussion with me. As per my addendum to yesterday evening's H&P: Pertinent Examination Findings: No distress; lungs CTAB; angelia, regular; normal JVP; extremities warm without edema. # NSTEMI # Bradycardia with AV block # PAF Imp/Plan: -Arranged for coronary angiography--no obstructive CAD -TTE showed normal LV EF without RWMAs -Normal D-dimer -Asymptomatic here -Reviewed ECGs/tele with EP, deemed to be Mobitz 1 (and no higher-grade block) and no PPM indicatedat this time (she is bradycardic, but has no symptoms) -Treating as possible MINOCA -Continue chronic therapies for PAF Alie iGl MD, FACC, FASE Staff Conche Operator pluck separator documented in this encounter H&P Notes * Alie Gil MD - 02/06/2023 3:52 PM EDT Images from the original note were not included. Cardiology H&P Patient info: Name: Elena Thacker : 1945 PCP: Vicenta Ndiaye APRN PCP phone number: [phone] Date of Admission: 02/06/2023 ( Hospital Day 0 days ) Attending:Alie Gil MD ID: [id number], Bradycardia No past medical history on file. Patient Active Problem List Diagnosis ','NSTEMI (non-ST elevated myocardial infarction) Atrial fibrillation Hypertension Hypothyroidism HPI: Elena Thacker is a 77 y.o. female with a history of pAfib s/p DCCV in 2020 currently on Xarelto, known sinus and AV conduction node disease, HTN, HLD, hypothyroidism and extensive family history of cardiac disease who presents in transfer from [facility] with NSTEMI and asymptomatic sinus bradycardia. Elena reports she developed substernal chest pressure upon ambulating to the kitchen this morning;06/07, radiating to her neck and associated with diaphoresis, no n/v, lightheadedness or dizziness.She plays pickle ball several times a week with her where her average HR is 114 and can notrecall any episodes of chest pressure. She presented to EMS after the pain became unrelenting this AM, no alleviating factors attempted. On arrival to [facility]: VSS 151/57, HR 40- 55, SpO2 97% on RA Labs WBC nl HgB 15, plts 180 Cr 0.9 Trp I 86--> 196.1 Initial EKG with wenckebach, no other acute ST seg changes, 2nd EKG with Mobitz II, no ST seg changes. CXR w/o intrapulmonary process or vascular congestion Interventions ASA 325 Lipitor 40 mg Nitro patch x1 Heparin bolus + gtt On arrival [place] [facility] she denies any ongoing chest pain. In regard to her afib, her PCP stopped her crestor and xarelto several months ago after she reported no longer having an afib burden, however inthe last week she resumed her xarelto after she noticed some intermittent palpitations. In the lastfew months her [employer] watch has frequently sent notifcations regarding her HR sustaining <50 bpm.She denies any associated lightheadedness, dizziness or fatigue. She denies orthopnea, PND, or bilateral lower extremity edema. Known family hx of heart disease with prior AL in her father and idiopathic hypertrophic subaortic stenosis in her mother. She smokes for two years in college and her parents were lifetime smokers. No alcohol, no drugs. Of note, patient saw Dr. Alvarado in 2020 following DCCV for Afib with post- procedural EKG showing sinus bradycardia and AV wenckebach. She was recommended PM prior to considering medications such as dofetilide or ablation; this was deferred and she was advised that her AV and sinus node dysfunction would likely worsen. Review of Systems (positives in bold) See HPI PMH No past medical history on file. PSH Past Surgical History: Procedure Laterality Date PRO CARDIOVERSION ELECTIVE ARRHYTHMIA EXTERNAL N/A 07/16/2021 CARDIOVERSION-ELECTIVE (WRVU 2.25) performed by Janett Vidal MD at [facility] Family History No family history on file. Social History Social History Socioeconomic History Marital status: Spouse name: Not on file Number of children: Not on file Years of education: Not on file Highest education level: Not on file Occupational History Not on file Tobacco Use Smoking status: Former Smokeless tobacco: Never Tobacco comments: college student for a few months Vaping Use Vaping Use: Never used Substance and Sexual Activity Alcohol use: Not on file Drug use: Not on file Sexual activity: Not on file Other Topics Concern Not on file Social History Narrative Not on file Social Determinants of Health Financial Resource Strain: Not on file Food Insecurity: Not on file Transportation Needs: Not on file Physical Activity: Not on file Housing Stability: Not on file Allergies: Allergies Allergen Reactions Diflunisal Ezetimibe Quinapril Meds rosuvastatin 40 mg Oral QPM sodium chloride 0.9 % (flush) 5 mL Intravenous BID sodium chloride 0.9 % (flush) 5 mL Intravenous BID sodium chloride 0.9 % (flush), lidocaine, nitroGLYcerin, sodium chloride 0.9 % (flush), heparin (porcine) infusion AND heparin (porcine) heparin (porcine) infusion 1,000 Units/hr (02/06/23 6699) Objective: Vitals Last value Range last 24 hrs Temperature Temp: 36.7 ??C (98.1 ??F) Temp: [36.6 ??C (97.9 ??F)-36.7 ??C (98.1 ??F)] Heart Rate Heart Rate: (!) 43 Heart Rate: [43-50] Blood Pressure BP: 134/59 BP: (117-134)/(59-77) Art Line BP BP (Arterial Line): -- MAP (NBP): [81 mmHg-88 mmHg] Respiratory Rate Resp: 18 Resp: [18] SpO2 SpO2: 97 % SpO2: [95 %-97 %] Oxygen Delivery Oxygen Therapy O2 Device: None (Room air) Intake/Output Summary (Last 24 hours) at 02/06/2023 1641 Last data filed at 02/06/2023 1500 Gross per 24 hour Intake -- Output 100 ml Net -100 ml Patient Vitals for the past 168 hrs: Weight 02/06/23 1500 80.7 kg (177 lb 14.6 oz) Admit wt: 80.7 kg Physical Exam: Gen: Appears younger than st HEENT: anicteric, EOMI intact, CV: sinus angelia, no murmurs/rubs/gallops. Unable to assess JVD d/t neck circumference Resp: CTAB, no crackles/wheezes/ronchi, normal work of breathing Abd: normal bowel sounds, soft, non-tender to palpation, no rebound or guarding Ext: 2+ distal pulses, no pedal edema Neuro: no focal deficits noted, CN II-XII grossly intact, moves all extremities spontaneously Psych: cooperative. Skin: no rashes, lesions, or ulcerations noted Lines/Drains/Airways Lines: Labs: No results for input(s): WBC, HGB, HCT, PLATELET, MCV in the last 168 hours. No results for input(s): NA, CL, CO2, K, MAGNESIUM, PHOS, CALCIUM, BUN, CREATININE in the last 168 hours. LFTs No results for input(s): PROT, ALBUMIN, AST, ALT, ALKPHOS, BILITOT, BILIDIR in the last 168 hours. Coags No results for input(s): INR, PT, PTT, FIBRINOGEN, DDIMER in the last 168 hours. Invalid input(s): THROMBIN TIME Cardiac Enzymes No results for input(s): CK, TROPONINT, PROBNP in the last 168 hours. Endocrine No results for input(s): TSH, CORTISOL in the last 7068 hours. Invalid input(s): [id number] No results for input(s): POCGLU in the last 168 hours. Heme No results for input(s): LDH, HAPTOGLOBIN, URICACID in the last 168 hours. ABG (Arterial Blood Gas) No results found for: PHART, PO2ART, NOZ5ITN, THH9VPU Microbiology: Microbiology Results (Last 30 days) No results found for the last 720 hours. Imaging: No results found for this visit on 02/06/23. Medications Scheduled Meds: rosuvastatin 40 mg Oral QPM sodium chloride 0.9 % (flush) 5 mL Intravenous BID sodium chloride 0.9 % (flush) 5 mL Intravenous BID Continuous Infusions: heparin (porcine) infusion 1,000 Units/hr (02/06/23 1556) PRN Meds:.sodium chloride 0.9 % (flush), lidocaine, nitroGLYcerin, sodium chloride 0.9 % (flush), heparin (porcine) infusion AND heparin (porcine) Assessment & Plan: Elena Thacker is a 77 y.o. female with a history of pAfib s/p DCCV in 2020 currently on Xarelto, Sinus and AV node conduction disease, HTN, HLD, hypothyroidism and extensive family historyof cardiac disease who presents in transfer from [facility] with NSTEMI and asymptomatic AV block. Clinical picture most c/w type I NSTEMI with evidence of progressive conduction disease on EKG in the setting of new Mobitz II. Will plan for LHC in AM and anticipate discussion with EP regarding role for PM. # NSTEMI - s/p load with ASA load - plavix load 600 mg now, 75 mg qD tomorrow - Heparin gtt - ASA 81mg daily - rosuvastatin 40mg daily - Nitroglycerin 0.4mg SL as needed for chest pain - Add ACEI pending echo results and BP trends - Telemetry monitoring - TTE pending - NPO after midnight for cardiac catheterization in am Cardiac Risk Stratification --HbA1c --TSH --Lipids #hx of Pafib #Asymptomatic AV block, Mobitz I and possibly II Likely 2/2 ischemic heart dz, she enjoys gardening and recently found a deer tick crawling on her but she was not bitten. - telemetry - Consult EP - Hold beta blockade - hold home xarelto #Home Meds -- Ct levothyroxine 12.5 mg, hold home tirosint 13 mcg- NFRx #Routine Diet: Daily Healthy Menu Choices/Cardiac diet ([facility]) NPO diet (Give Meds) DVT Prophylaxis: heparin gtt GI Prophylaxis: none Code Status: Attempt Cardiopulmonary Resuscitation - Inpatient Dispo: Pending clinical course Gabriela Hemphill MD Internal Medicine, PGY-3 Cardiology, M1-S1, #[id number] 02/06/23 4:41 PM CARDIOLOGY STAFF NOTE Elena Thacker is a 77 y.o. year-old female patient whom I saw today (02/07) on cardiologyrounds. I have personally interviewed and examined the patient and reviewed appropriate data, including labs, ECGs and other diagnostic studies. I agree with the principal findings documented above. Today's assessment and plan were formulated in discussion with me. Pertinent Examination Findings: No distress; lungs CTAB; angelia, regular; normal JVP; extremities warm without edema. # NSTEMI # Bradycardia with AV block # PAF Imp/Plan: -Arranged for coronary angiography--no obstructive CAD -TTE showed normal LV EF without RWMAs -Normal D-dimer -Asymptomatic here -Reviewed ECGs/tele with EP, deemed to be Mobitz 1 (and no higher-grade block) and no PPM indicatedat this time (she is bradycardic, but has no symptoms) -Treating as possible MINOCA -Continue chronic therapies for PAF Alie Gil MD, FACC, FASE Staff Conche Operator pluck separator documented in this encounter Miscellaneous Notes * Care Management Discharge - Ian De Leon RN - 02/07/2023 8:57 PM EDT CARE MANAGEMENT FINAL DISCHARGE NOTE Chart reviewed, care reviewed with primary team and at interdisciplinary rounds. Patient is medically ready for discharge to home. Per team report, Patient with no apparent RNCM/SW needs at this time. No housing, transportation, insurance, resources concerns identified at this time. Supports in place to achieve a safe post-hospital transition. No identified barriers to accessing necessary care and/or follow-up after discharge. Needs for Transition of Care: Plan for discharge is: Home w/o Services Outpatient Agency/Support Group Needs: None Agency Referrals & Follow-up Care: follow AVS instructions. Transportation: family or friend will provide Functional status prior to admission: Independent Home Environment: . . Accessibility Concerns: . na Current Functional Ability: Independent DME used at home: none DME Needed at Discharge: none Patient is insured through: Primary Insurance: [employer] MANAGED MEDICARE Payor: [employer] MANAGED MEDICARE / Plan: [employer] MANAGED MEDICARE / Product Type: *No Product type* / Secondary Insurance: N/A Prescription Coverage: This plan was formulated with input from patient, Cardiology (please identify family/friend involved if applicable) and team. All are in agreement with plan. IMM delivered by DOMENICO Urbina on 02/07/23. Ian De Leon RN * Plan of Care - Cyn Hercules RN - 02/07/2023 8:12 PM EDT Patient AVS reviewed. Ziopatch placed. Questions answered. Belongings returned. Patient discharged to entrance 2. Problem: Chest Pain Goal: Resolution of Chest Pain Symptoms Outcome: Outcome (s) achieved Problem: Pain Acute Goal: Acceptable Pain Control and Functional Ability Outcome: Outcome (s) achieved Problem: Bleeding (Cardiac Catheterization) Goal: Absence of Bleeding Outcome: Outcome (s) achieved * Plan of Care - Sean Lindo RN - 02/07/2023 4:34 AM EDT Pt. AOx4. No SOB. Denies pain. NPO since midnight. Heparin drip continued. Problem: Chest Pain Goal: Resolution of Chest Pain Symptoms Outcome: Ongoing (Interventions Implemented as Appropriate) Problem: Pain Acute Goal: Acceptable Pain Control and Functional Ability Outcome: Ongoing (Interventions Implemented as Appropriate) Problem: Bleeding (Cardiac Catheterization) Goal: Absence of Bleeding Outcome: Ongoing (Interventions Implemented as Appropriate) * Plan of Care - Anna Marie Tarango MD - 02/06/2023 5:39 PM EDT Images from the original note were not included. Pre-Cardiac Catheterization H&P Elena Thacker is a pleasant 77 y.o. female referred for cardiac catheterization by cardiology for evaluation of obstructive CAD in the setting of NSTEMI (type I suspected). She has a hx of pAfib s/p DCCV in 2020 currently on Xarelto, baseline sinus bradycardia/Mobitz I history, HTN, HLD, hypothyroidism who was transferred from [facility] on 02/06/23 with NSTEMI and asymptomatic sinus bradycardia. EKG prior to transfer shows NSR with mobitz type 2 block without acute ischemicchanges. She reports no chest pain since transfer [place] [facility]. She has been loaded with Aspirin 325 mg and Plavix 600 mg. No fevers, no chills, no bleeding. She has never had a cardiac catheterization before. 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 Outpatient Medications Marked as Taking for the 02/06/23 encounter (Hospital Encounter) Medication Sig Dispense Refill multivitamin (THERAGRAN) Tablet Take 1 tablet by mouth daily. fish oil-omega-3 fatty acids 1,000 mg Capsule Take 2 g by mouth daily. Levothyroxine 13 mcg Capsule Daily losartan-hydrochlorothiazide (HYZAAR) 100-12.5 mg Tablet 1 tablet. rivaroxaban (Xarelto) 20 mg Tablet Daily rosuvastatin (Crestor) 5 mg Tablet 2.5 mg. BP 134/59 (BP Location (NBP): Left arm, Patient Position: Lying) Pulse (!) 43 Temp 36.7 ??C (98.1 ??F) (Oral) Resp 18 Ht 160 cm (5' 3) Wt 80.7 kg (177 lb 14.6 oz) SpO2 97% BMI 31.52 kg/m?? Gen: Alert, comfortable appearing, female, resting in bed, BMI 32, NAD HEENT: EOMI, MMM Neck: Supple, no JVD CV: RRR, soft systolic murmur, normal S1/S2, PMI not palpated, no carotid bruit Resp: CTAB, no W/R/R Abd: Soft, NT/ND Ext: No edema, clubbing, or cyanosis. Warm and well perfused. Neuro: CN grossly intact, moving all extremities Psych: Appropriate affect Pulses: 2+ bilateral radial pulses, 2+ bilateral DP pulses Labs reviewed and notable for: Lab Results Component Value Date WBC 3.9 (ExtL) 11/26/2016 HGB 13.6 (External Lab) 11/26/2016 HCT 41 (External Lab) 11/26/2016 MCV 89 (External Lab) 11/26/2016 PLATELET 220 (External Lab) 11/26/2016 Lab Results Component Value Date CREATININE 0.93 07/16/2021 BUN 16 07/16/2021 NA 140 07/16/2021 K 4.5 07/16/2021 CL 105 07/16/2021 CO2 25 07/16/2021 A/P 77 y.o. female here for cardiac catheterization for evaluation of coronary artery disease. Coronaryangiography with possible PCI requested. - proceed as planned - consent signed -no apparent contraindication to DAPT, patient denies upcoming or planned procedures/operations, and denies ongoing or recent bleeding events - FULL code -12-Lead ECG reviewed ASA: 3: Patient with severe systemic disease Mallampati: I: soft palate, fauces, tonsillar pillars and uvula can be seen I have personally discussed the procedure, including benefits and risks, with the patient who agrees to proceed. The indications for the catheterization, the expected benefits, and the possible riskswere reviewed in detail with the patient. The potential for , heart attack, stroke, kidney failure, bleeding, allergic reaction, vascular complications and infection were reviewed. The possibility of stenting and other percutaneous interventions, with associated risk, was reviewed. The potential need for emergent coronary artery bypass surgery was reviewed. Alternatives were discussed and the patient's questions were answered in full. Following this discussion, the patient consented to theprocedure and signed a form attesting to this, which is in the chart Anna Marie Tarango MD Equipment Man PGY4 [id number] documented in this encounter Plan of Treatment Upcoming Encounters Date Type Department Care Team (Late st Contact Info) Description 07/13/2024 10:00 AM EST Hospital Encounter Non-Invasive [place]iology [place] [address] Arrived Scheduled Referrals Name Type Priority Associated Diagnoses Orde r Schedule Referral to Cardiac Electrophysiology Outpatient Referral Routine Bradycardia Mobitz (type) I (Wenckebach's) atrioventricular block Ordered: 02/07/2023 documented as of this encounter Procedures Procedure Name Priority Date/Time Associated Diagnosis Comments D-DIMER, QUANTITATIVE Routine 02/07/2023 3:15 PM EDT CARDIAC CATHETERIZATION Routine 02/08/20 10:00 AM EDT ECHO COMPLETE Routine 02/07/2023 9:15 AM EDT Non-ST elevation myocardial infarction (NSTEMI) EKG 12-LEAD Routine 02/07/2023 7:44 AM EDT Non-ST elevation myocardial infarction (NSTEMI) HEPARIN (UNFRACTIONATED) LEVEL Routine 02/07/2023 6:27 AM EDT HEMOGRAM Routine 02/07/2023 6:27 AM EDT DIFFERENTIAL, AUTOMATED Routine 02/08/20 6:27 AM EDT CBC (WITH DIFF) Routine 02/07/2023 6:27 AM EDT MAGNESIUM Routine 02/07/2023 6:27 AM EDT BASIC METABOLIC PANEL Routine 02/07/2023 6:27 AM EDT HEPARIN (UNFRACTIONATED) LEVEL Routine 02/06/2023 11:50 PM EDT TROPONIN - SERIES STAT 02/06/2023 7:2 5 PM EDT TROPONIN - SERIES STAT 02/06/2023 5:1 0 PM EDT TSH CASCADE Routine 02/06/2023 5:10 PM EDT HEPARIN (UNFRACTIONATED) LEVEL STAT 02/06/2023 5:10 PM EDT HEMOGRAM Routine 02/06/2023 5:10 PM EDT DIFFERENTIAL, AUTOMATED Routine 02/07/20 5:10 PM EDT HC PARTIAL THROMBOPLASTIN TIME Routine 02/06/2023 5:10 PM EDT PROTHROMBIN TIME Routine 02/06/2023 5:10 PM EDT CBC (WITH DIFF) Routine 02/06/2023 5:10 PM EDT TRIGLYCERIDE Routine 02/06/2023 5:10 PM EDT PRO-BRAIN NATRIURETIC PEPTIDE Routine 02/06/2023 5:10 PM EDT MAGNESIUM Routine 02/06/2023 5:10 PM EDT LDL CHOLESTEROL, DIRECT Routine 02/07/20 5:10 PM EDT HDL/CHOL PROFILE Routine 02/06/2023 5:10 PM EDT HEMOGLOBIN A1C Routine 02/06/2023 5:10 PM EDT CALCIUM Routine 02/06/2023 5:10 PM EDT LIPID PANEL (REFLEX DIRECT LDL) Routine 02/06/2023 5:10 PM EDT BASIC METABOLIC PANEL Routine 02/06/2023 5:10 PM EDT EKG 12-LEAD STAT 02/06/2023 4:54 PM EDT Non-ST elevation myocardial infarction (NSTEMI) documented in this encounter Results * Ziopatch 48 Hrs-15 Days (02/08/2023 7:05 AM EDT) Anatomical Region Laterality Modality Other Narrative 03/02/2023 2:51 PM EDT Images from the original result were not included. [facility] ? 'Zio Patch' Ambulatory Cardiac Event Monitor Report Duration of recordin days, 12 hours (started on 02/07/2023) Indication: bradycardia Summary Data Predominant rhythm: Sinus rhythm Maximum sinus rate: ??89 bpm Minimum sinus rate: 47 bpm (while in NSR) Average heart rate: 58 bpm Atrial fibrillation: ? None Pauses: ? 128 Pauses occurred, the longest lasting 3.6 secs (see below). ??Some Pauses occurred due to Second Degree AV Block-Mobitz I (Wenckebach), Atrial Tachycardia with block and Non-Conducted SVE(s). ??Second Degree AV Block-Mobitz I (Wenckebach) was present. Wenckebach was detected within +/- 45 seconds of symptomatic patient event(s). 22 episode(s) of AV Block (High Grade and 3rd??) occurred, lasting a total of 2 mins 56 secs. Ectopic beats Isolated SVEs were rare (<1.0%), and no SVE Couplets or SVE Triplets were present. Isolated VEs were occasional (1.1%, [id number]), VE Couplets were rare (<1.0%, 55), and [...] 7pm: chest pain/pressure for < 1 min. ??Sinus rhythm with 2nd degree AVB, type I (HR 36-66 bpm) -02/12/2023 at 3:55 am, chest pain/pressure < 1 min, awoke from sleeping. ?? Sinus rhythm with 2nd degree AVB, type I (HR 25-57) -02/13/2023 at 8:08 am: chest pain/pressure, < 1 min while doing dishes. ?? Sinus rhythm with 2nd degree AVB, type I (HR 36-71) #triggered events: -additional episodes of sinus rhythm with 2nd degree AVB, type I Conclusion(s): ?? The predominant rhythm is sinus rhythm. There are multiple pauses (128 that were 3 sec or longer) noted throughout the recording. ??The longest pause was 3.6 sec. ??The majority of these pauses occur during episodes of 2nd degree AV block type I (Wenckebach) with sample tracings ahead. ??Some of the episodes were associated with symptoms - although the symptoms were chest pain/pressure lasting for < 1 min. ??No lightheadedness, dizziness, presyncope or syncope reported. ?? There were a few episodes of high degree AV block noted as well (2:1 block, difficult to distinguish from 3rd degree). Rare ectopy. One brief episode of NSVT (4 beats). ?? Symptoms and triggered events as noted with chest pain/pressure < 1 min around the time of 2nd degree AVB, type I. Other details can be found in the linked PDF. Alie Gil MD CARDIAC SERVICES ORD ERABLES * D-Dimer, Quantitative (02/07/2023 3:15 PM EDT) D-Dimer 320 0 - 500 FEU ng/ml [facility] Comment: The D-Dimer assay is used to aid in the diagnosis of deep vein thrombosis and pulmonary embolism. A normal D-Dimer result (less than 500 FEU ng/ml) has a negative predictive value of approximately 95% for the exclusion of acute PE and DVT when there is low to moderate pretest probability. To use age adjusted cutoff: Age x 10 ng/ml. Blood 02/07/2023 3:15 PM EDT 02/07/2023 3:25 PM EDT Narrative Resulting Agency Comment Spec In Lab Alie Gil MD HEMATOLOGY ORDERABLE S [facility] [place] [address] * CARDIAC CATHETERIZATION (02/07/2023 10:00 AM EDT) Anatomical Region Laterality Modality Other Narrative 02/07/2023 10:07 AM EDT ?[facility] ? Cardiac Catheterization/Intervention Report ? Patient Name: OrlindaAlfa, Elena R. ? Procedure Date: 02/07/2023 ? A #: [id number] ? Primary Physician: Marilee, Kelvin S ? Case #: [id number] ? File Name: [id number] ? Catheterization Order Number: [id number] ? [facility] ? Final Report [place], [place] ? Patient Name: ? Elena Alcala. Jolie ?ID#: ?[id number] ? : ?1945 ? Procedure Date: ? February 07, 2023 ?Case #: ? [id number] ? Room: ? 1 ? Case Physician: ? Kelvin Hunt M.D. ? Start: ?09:29 ? Admission: ??02/06/2023 ? Procedures: ?* Coronary Angiography ?* Left Heart Catheterization ? History ?Elena Thacker is a 77 year old woman. She has hypertension ?and a family history of coronary artery disease. The patient's smoking ?status is Former. She has hypercholesterolemia managed with lipid ?therapy. The patient is status post an acute non-ST elevation myocardial ?infarction. She also has a history of atrial fibrillation/atrial flutter. ?Prior to the initiation of this procedure, the patient was designated as ?ASA Class IV. The CSHA clinical frailty scale is 4: Vulnerable. ? Diagnostic Tests: ?Prior Coronary Angiography: ? LV ejection fraction within 6 months is 55%. ?Electrocardiography: ? EKG was assessed by ECG. EKG was Abnormal. EKG showed type I 2nd ? degree AV block. ?Medications Prior to Procedure: ? Aspirin, Angiotensin II Receptor Fide and Statin. ? Indications for Diagnostic Cath: ?The priority of the diagnostic procedure was Elective. 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 Chest pain symptom ?assessment was: Typical Angina. ? Technique: ?A 6Fr sheath was inserted in the right radial artery utilizing the ?Seldinger technique. The left coronary artery was injected utilizing a ?5Fr JL 3.5 catheter. A 5Fr 3DRC catheter was used to inject the right ?coronary artery. Left ventricular pressure was performed utilizing a 5Fr ?GO RADIAL catheter. 3,000 units of heparin were administered. A total ?of 100cc of Omnipaque were opened, 59cc of Omnipaque were administered ?and 41cc of Omnipaque were wasted. Radiation: Fluoro time was 8.2 ?minutes, dose area product was 22,300 mGYcm2 and air kerma was 292 mGY. ?See the case log for additional details. ?The patient received the following medications prior to and during the ?procedure: ? Unfractionated Heparin and Clopidogrel. ? Hemodynamics: ?Left Heart Pressures ? Resting: ? Syst Diast ? EDP ?a ?v ? m ?Ao 131 ?? 61 ?90 ?LV 134 ? 10 ? Coronary Angiography: ?Dominance: Right ?Left Main ? The left main was normal, free of disease. ?Left Anterior Descending ? There was mild diffuse (<=25% stenosis) disease of the entire vessel ? segment of the left anterior descending artery (LAD). ?Left Circumflex ? The left circumflex (LCX) was normal, free of disease. ?Right Coronary Artery ? The right coronary artery (RCA) was normal, free of disease. ? Vascular Access: ?Vascular Access Management: ? Mechanical Compression of the right radial artery access site was ? performed. ? Conclusions: ?* Nonobstructive coronary artery disease ? Complications/Events: ?The patient had no complications during these procedures. ? Post Procedure Fluid Recommendations: ?IV fluid at 400 mL/hr for 4 hours for a total of 1,600 mL. These ?recommendations are made at the time of the procedure. Patient and ?provider preferences or a changing clinical situation may require ?modification of this regimen. ?The attending physician was present for the entire procedure. ?Dr. Kelvin Hunt M.D. was present during the moderate sedation ?intraservice time as documented by the sedation nurse. ??Case time = 00:24. ?Dr. Kelvin Hunt M.D. performed the coronary angiography and left ?heart catheterization. ? Kelvin Hunt M.D. ? Electronically Signed by: Kelvin Hunt M.D. ? Report Finalized: 02/07/2023 ??09:59 ? Laureano Denise Lyons MD CARDIAC CATH ORDERAB LES * ECHO COMPLETE (02/07/2023 9:15 AM EDT) EF 60 HEARTLAB SYSTEM Anatomical Region Laterality Modality Cardiac Other 02/07/2023 8:12 AM EDT Narrative 02/07/2023 9:48 AM EDT ? Echocardiogram Report Name: ELENA THACKER ? Study Date: 02/07/2023 08:12 AMBP: 138/73 mmHg ? Patient Location: [id number] : 1945 ? Height: 160 cm ? Account: [id number] Age: 77 yrs ? Weight: 80 kg Gender: Female ?BSA: 1.8 m2 Ordering Physician: ALIE GIL Referring Physician: CHANEL VARGAS Performed By: Teri Pollack RDCS Reason For Study: NSTEMI Exam Location: [facility]. Interpretation Summary Left ventricular systolic function is normal. The left ventricular ejection fraction is 60% by Smith's biplane. There are no segmental wall motion abnormalities. The left atrium is mildly dilated. There is mild to moderate mitral regurgitation. Other details as noted below. Procedure Complete-[id number]. Satisfactory quality. Left Ventricle There is no ventricular septal defect. Left ventricle is of normal size. Mildly increased thickness of the basal septum with no obstruction to LV outflow. Left ventricular systolic function is normal. The left ventricular ejection fraction is 60% by Smith's biplane. There are no segmental wall motion abnormalities. Right Ventricle The right ventricle is of normal size. Right ventricular systolic function is normal. Left Atrium The left atrium is mildly dilated. There is no evidence for a patent foramen ovale. Right Atrium The right atrium is normal. Aortic Valve The aortic valve is tricuspid. The aortic valve is mildly thickened. There is no aortic stenosis. There is trace aortic regurgitation. Mitral Valve There is mitral annular calcification. The mitral annulus is dilated. There is mild to moderate mitral regurgitation. Tricuspid Valve The tricuspid valve is structurally normal. There is mild tricuspid regurgitation. Pulmonic Valve The pulmonic valve is not well visualized. There is mild pulmonic valve regurgitation. Great Arteries The aortic root is of normal size. No abnormalities are identified. Ascending aorta is normal in size. Venous Inferior vena cava is not well visualized. Pericardium/Pleural The pericardium appears normal. There is no pericardial effusion. Hemodynamics The peak right ventricular systolic pressure is 22 mmHg. Plus RA presssure. Left ventricular filling pressure is normal. Ejection Fraction ?2D Measurements ? Volumes EF(MOD-bp): 59.7 % ?IVSd: 1.3 cm ? LAV(MOD- bp) Indexed: ?LVIDd: 4.5 cm ?LVIDs: 3.3 cm ?41.1 ml/m2 ?LVPWd: 1.0 cm ?RA A4Cs_phl: 8.5 cm2 ? EDV (MOD-bp) Index: 38.3 ?LV mass(C)d: 193.5 grams ? ESV (MOD-bp) Index: 15.4 ?LV mass(C)dI: 105.6 grams/m2 ?? SV(LVOT): 64.3 ml ?Ao root diam: 3.6 cm ?Ao root diam index: 2.0 ?SI(LVOT): 35.1 ml/m2 ?asc Aorta Diam: 3.4 cm ?LVOT diam: 1.9 cm Doppler TR max lico: 235.8 cm/sec LV V1 VTI: 21.7 cm MV E max lico: 90.1 cm/sec MV A max lico: 69.2 cm/sec MV E/A: 1.3 MV dec time: 0.15 sec Lat Peak E' Lico: 11.4 cm/sec E/ e' (lat): 7.9 Med Peak E' Lico: 7.3 cm/sec E/e' (med): 12.4 E/e' Average: 10.1 I ?WMSI = 1.00 ? % Normal = 100 ?Segments ??Size X - Cannot ?2 - ?4 - ?1-2 ? small Interpret ?1 - Normal ?? Hypokinetic 3 - Akinetic Dyskinetic ?? 3-5 ? moderate 5 - ? 6-14 ?large Aneurysmal ?15-16 ?? diffuse Procedure Note Tanmay Sims MD - 02/07/2023 Echocardiogram Report Name: ELENA THACKER Study Date: 308:12 AMBP: 138/73 mmHg Patient Location: [id number] : 1945 Height: 160 cm Account: [id number] Age: 77 yrs Weight: 80 kg Gender: Female BSA: 1.8 m2 Ordering Physician: ALIE GIL Referring Physician: CHANEL VARGAS Performed By: Teri Pollack RDCS Reason For Study: NSTEMI Exam Location: [facility]. Interpretation Summary Left ventricular systolic function is normal. The left ventricularejection fraction is 60% by Smith's biplane. There are no segmental wall motion abnormalities. The left atrium is mildly dilated. There is mild to moderate mitral regurgitation. Other details as noted below. Procedure Complete-[id number]. Satisfactory quality. Left Ventricle There is no ventricular septal defect. Left ventricle is of normal size.Mildly increased thickness of the basal septum with no obstruction to LV outflow.Left ventricular systolic function is normal. The left ventricular ejectionfraction is 60% by Smith's biplane. There are no segmental wall motionabnormalities. Right Ventricle The right ventricle is of normal size. Right ventricular systolic functionis normal. Left Atrium The left atrium is mildly dilated. There is no evidence for a patentforamen ovale. Right Atrium The right atrium is normal. Aortic Valve The aortic valve is tricuspid. The aortic valve is mildly thickened. Thereis no aortic stenosis. There is trace aortic regurgitation. Mitral Valve There is mitral annular calcification. The mitral annulus is dilated.There is mild to moderate mitral regurgitation. Tricuspid Valve The tricuspid valve is structurally normal. There is mild tricuspidregurgitation. Pulmonic Valve The pulmonic valve is not well visualized. There is mild pulmonic valve regurgitation. Great Arteries The aortic root is of normal size. No abnormalities are identified.Ascending aorta is normal in size. Venous Inferior vena cava is not well visualized. Pericardium/Pleural The pericardium appears normal. There is no pericardial effusion. Hemodynamics The peak right ventricular systolic pressure is 22 mmHg. Plus RApresssure. Left ventricular filling pressure is normal. Ejection Fraction 2D Measurements Volumes EF(MOD-bp): 59.7 % IVSd: 1.3 cm LAV(MOD-bp)Indexed: LVIDd: 4.5 cm LVIDs: 3.3 cm 41.1 ml/m2 LVPWd: 1.0 cm RA A4Cs_phl: 8.5cm2 EDV (MOD-bp)Index: 38.3 LV mass(C)d: 193.5 grams ESV (MOD-bp)Index: 15.4 LV mass(C)dI: 105.6 grams/m2 SV(LVOT): 64.3ml Ao root diam: 3.6 cm Ao root diam index: 2.0 SI(LVOT): 35.1ml/m2 asc Aorta Diam: 3.4 cm LVOT diam: 1.9 cm Doppler TR max lico: 235.8 cm/sec LV V1 VTI: 21.7 cm MV E max lico: 90.1 cm/sec MV A max lico: 69.2 cm/sec MV E/A: 1.3 MV dec time: 0.15 sec Lat Peak E' Lico: 11.4 cm/sec E/ e' (lat): 7.9 Med Peak E' Lico: 7.3 cm/sec E/e' (med): 12.4 E/e' Average: 10.1 I WMSI = 1.00 % Normal = 100 SegmentsSize X - Cannot 2 - 4 - 1-2small Interpret 1 - Normal Hypokinetic 3 - Akinetic Dyskinetic 3-5moderate 5 - 6-14large Aneurysmal 15-16diffuse Alie Gil MD ECHO ORDERABLES * EKG 12 Lead (02/07/2023 7:44 AM EDT) Ventricular rate 49 BPM MUSE SYSTEM Atrial Rate 56 BPM MUSE SYSTEM QRS Duration 84 ms MUSE SYSTEM Q-T Interval 452 ms MUSE SYSTEM QTC Calculated (Bezet) 408 ms MUSE SYSTEM Calculated P Lena 32 degrees MUSE SYSTEM Calculated R Lena -4 degrees MUSE SYSTEM Calculated T Lena -19 degrees MUSE SYSTEM INTERPRETATION Sinus bradycardia with 2nd degree A-V block (Mobitz I) Occasional Premature ventricular complexes Possible Anterior infarct (cited on or before 22-JUL-2021) Abnormal ECG When compared with ECG of 06-FEB-2023 16:54, Wenkebach (Mobitz I Second Degree) heart block has replaced first degree heart block Questionable change in initial forces of Anterior leads Nonspecific T wave abnormality now evident in Anterolateral leads QT has shortened Confirmed by MD Dewey, Kami ([id number]) on 02/07/2023 4:10:26 PM MUSE SYSTEM 02/07/2023 7:44 AM EDT 02/07/2023 4:10 PM EDT Alie Gil MD ECG ORDERABLES MUSE SYSTEM * (ABNORMAL) Differential, Automated (02/07/2023 6:27 AM EDT) Neutrophil % 38.9 % [facility] Neutrophil Absolute 1.53(L) 1.70 - 6.10 x10(3)/mc L [facility] Lymph % 49.0 % [facility] Lymphocytes Abs 1.9 0.9 - 3.2 x10(3)/mc L [facility] Monocyte % 9.2 % [facility] Monocyte Abs 0.4 0.3 - 0.9 x10(3)/mc L [facility] Eos % 1.8 % [facility] Eosinophils Abs 0.1 0.0 - 0.4 x10(3)/mc L [facility] Basophil % 0.8 % [facility] Baso Absolute 0.0 0.0 - 0.1 x10(3)/mc L [facility] Immature Gran % 0.30 % [facility] Comment: Immature granulocytes(IG's)percentage and absolute count will include metamyelocytes, myelocytes, and promyelocytes. Blood smears from CBCs yielding IG's will be scanned manually for concordance. If this scan disagrees with the automated IG or if promyelocytes are noted, a manual differential will be performed. Immature Gran Absolute 0.01 0.00 - 0.04 x10(3)/mc L [facility] Blood 02/07/2023 6:27 AM EDT 02/07/2023 6:46 AM EDT Narrative Resulting Agency Comment Spec In Lab Gabriela Hemphill MD HEMATOLOGY ORDERABLE S Performing Organization Address City/[facility] Co de Phone Number [facility] [place] [address] * (ABNORMAL) Hemogram (02/07/2023 6:27 AM EDT) White Blood Cell 3.9(L) 4.0 - 9.5 x10(3)/mc L [facility] Red Blood Cell 4.85 4.00 - 5.21 x10(6)/mc L [facility] Hemoglobin 14.8 11.7 - 15.5 g/dL [facility] Hematocrit 44.1 35.7 - 45.8 % [facility] Mean Cell Volume 90.9 82.6 - 94.4 fL [facility] Mean Cell Hemoglobin 30.5 27.1 - 32.0 pg [facility] Mean Cell Hemoglobin Concentration 33.6 31.7 - 35.0 g/dL [facility] Platelet 158 145 - 357 x10(3)/mc L [facility] RDW Standard Deviation 41.5 37.0 - 46.0 fL [facility] RDW coefficient of variation 12.5 11.5 - 14.1 % [facility] Mean Platelet Volume 10.4 7.6 - 12.9 fL [facility] NRBC% auto 0.0 % [facility] NRBC Absolute 0.000 0.000 - 0.000 x10(3)/mc L [facility] Blood 02/07/2023 6:27 AM EDT 02/07/2023 6:46 AM EDT Narrative Resulting Agency Comment Spec In Lab Gabriela Hemphill MD HEMATOLOGY ORDERABLE S Performing Organization Address City/[facility]/ZIP Co de Phone Number [facility] [place] [address] * Heparin (unfractionated) Level (02/07/2023 6:27 AM EDT) [facility] UF Heparin 0.49 IU/mL [facility] Comment: Heparin (anti-Xa) levels should be [...] cardiac surgery): 0.1 ? 0.3 IU/mL Blood 02/07/2023 6:27 AM EDT 02/07/2023 6:46 AM EDT Narrative Resulting Agency Comment Spec In Lab Alie Gil MD HEMATOLOGY ORDERABLE S Performing Organization Address [facility] Co de Phone Number [facility] [place] [address] * Magnesium (02/07/2023 6:27 AM EDT) [facility] Magnesium 0.91 0.69 - 1.07 mmol/L [facility] Blood 02/07/2023 6:27 AM EDT 02/07/2023 6:46 AM EDT Narrative Resulting Agency Comment Spec In Lab Alie Gil MD CHEMISTRY ORDERABLES Performing Organization Address [facility] Co de Phone Number [facility] [place] [address] * (ABNORMAL) Basic Metabolic Panel (non-fasting) (02/07/2023 6:27 AM EDT) [facility] Glucose 105 65 - 199 mg/dL [facility] Comment:Diabetes: >=200 mg/d L plus symptoms Blood Urea Nitrogen 14 8 - 18 mg/dL [facility] Creatinine 0.63(L) 0.70 - 1.20 mg/dL [facility] Sodium 135 135 - 145 mmol/L [facility] Potassium 4.0 3.5 - 5.0 mmol/L [facility] Comment: Please note: ??Patients with WBC >100,000 may have falsely elevated Potassium levels. ??For accurate Potassium quantification in these patients send serum separator tube (gold top) for subsequent determinations. ??Contact the Clinical Chemistry Laboratory if there are any questions. Chloride 101 98 - 107 mmol/L [facility] Carbon Dioxide 22 22 - 31 mmol/L [facility] Anion Gap 12 5 - 15 mmol/L [facility] Calcium 9.3 8.5 - 10.5 mg/dL [facility] Est Glomerular Filtration Rate 91 >=60 mL/min/1. 73 m?? [facility] Comment: This patient's estimated [...] and symptoms in addition to eGFR. Blood 02/07/2023 6:27 AM EDT 02/07/2023 6:46 AM EDT Narrative Resulting Agency Comment Spec In Lab Alie Gil MD CHEMISTRY ORDERABLES [facility] [place] [address] * Heparin (unfractionated) Level (02/06/2023 11:50 PM EDT) UF Heparin 0.78 IU/mL [facility] Comment: Heparin (anti-Xa) [...] cardiac surgery): 0.1 ? 0.3 IU/mL Blood 02/06/2023 11:5 0 PM EDT 02/06/2023 11:55 PM EDT Narrative Resulting Agency Comment Spec In Lab Alie Gil MD HEMATOLOGY ORDERABLE S [facility] [place] [address] * (ABNORMAL) Troponin (02/06/2023 7:25 PM EDT) Troponin-T, High Sensitivity 78(H) <=14 ng/L [facility] Comment: This patient's troponin T [...] value can be found in the [facility] Laboratory Test Catalog Troponin - [facility] Test Catalog Reference: Fourth [place] Definition of Myocardial Infarction. Journal of the [employer] 2018;72:4139-2030 Blood 02/06/2023 7:25 PM EDT 02/06/2023 7:30 PM EDT Narrative Resulting Agency Comment Spec In Lab Alie Gil MD CHEMISTRY ORDERABLES Performing Organization Address City/[facility]/ZIP Co de Phone Number [facility] [place] [address] * Differential, Automated (02/06/2023 5:10 PM EDT) Neutrophil % 44.2 % [facility] Neutrophil Absolute 2.29 1.70 - 6.10 x10(3)/[facility] Lymph % 47.8 % [facility] Lymphocytes Abs 2.5 0.9 - 3.2 x10(3)/[facility] Monocyte % 6.2 % [facility] Monocyte Abs 0.3 0.3 - 0.9 x10(3)/[facility] Eos % 1.0 % [facility] Eosinophils Abs 0.0 0.0 - 0.4 x10(3)/[facility] Basophil % 0.6 % [facility] Baso Absolute 0.0 0.0 - 0.1 x10(3)/[facility] Immature Gran % 0.20 % [facility] Comment: Immature granulocytes(IG's)percentage and absolute count will include metamyelocytes, myelocytes, and promyelocytes. Blood smears from CBCs yielding IG's will be scanned manually for concordance. If this scan disagrees with the automated IG or if promyelocytes are noted, a manual differential will be performed. Immature Gran Absolute 0.01 0.00 - 0.04 x10(3)/[facility] Blood 02/06/2023 5:10 PM EDT 02/06/2023 5:23 PM EDT Narrative Resulting Agency Comment Spec In Lab Gabriela Hemphill MD HEMATOLOGY ORDERABLE S Performing Organization Address City/[facility]/ZIP Co de Phone Number [facility] [place] [address] * Hemogram (02/06/2023 5:10 PM EDT) White Blood Cell 5.2 4.0 - 9.5 x10(3)/[facility] Red Blood Cell 4.85 4.00 - 5.21 x10(6)/[facility] Hemoglobin 14.7 11.7 - 15.5 g/dL [facility] Hematocrit 43.1 35.7 - 45.8 % [facility] Mean Cell Volume 88.9 82.6 - 94.4 fL [facility] Mean Cell Hemoglobin 30.3 27.1 - 32.0 pg [facility] Mean Cell Hemoglobin Concentration 34.1 31.7 - 35.0 g/dL [facility] Platelet 192 145 - 357 x10(3)/[facility] RDW Standard Deviation 41.1 37.0 - 46.0 fL [facility] RDW coefficient of variation 12.6 11.5 - 14.1 % [facility] Mean Platelet Volume 10.3 7.6 - 12.9 fL [facility] NRBC% auto 0.0 % [facility] NRBC Absolute 0.000 0.000 - 0.000 x10(3)/[facility] Blood 02/06/2023 5:10 PM EDT 02/06/2023 5:23 PM EDT Narrative Resulting Agency Comment Spec In Lab Gabriela Hemphill MD HEMATOLOGY ORDERABLE S Performing Organization Address City/State/[facility] Co de Phone Number [facility] [place] [address] * (ABNORMAL) Heparin (unfractionated) Level (02/06/2023 5:10 PM EDT) UF Heparin 1.66(Crit ical) IU/mL [facility] Comment: Critical Result called by ?? ALDAIR CRITICAL Results read back by: ? Trung Alba at 2023-02-06 17:57:56 Heparin (anti-Xa) levels should be determined in [...] cardiac surgery): 0.1 ? 0.3 IU/mL Blood 02/06/2023 5:10 PM EDT 02/06/2023 5:22 PM EDT Narrative Resulting Agency Comment Spec In Lab Alie Gil MD HEMATOLOGY ORDERABLE S Performing Organization Address City/[facility]/ZIP Co de Phone Number [facility] [place] [address] * (ABNORMAL) pro-Brain Natriuretic Peptide (02/06/2023 5:10 PM EDT) NT-proBNP 529(H) <=449 pg/mL [facility] Blood 02/06/2023 5:10 PM EDT 02/06/2023 5:23 PM EDT Narrative Resulting Agency Comment Spec In Lab Alie Gil MD CHEMISTRY ORDERABLES Performing Organization Address [facility] Co de Phone Number [facility] [place] [address] * (ABNORMAL) Troponin (02/06/2023 5:10 PM EDT) Troponin-T, High Sensitivity 89(H) <=14 ng/L [facility] Comment: This patient's troponin T [...] value can be found in the [facility] Test Catalog Troponin - [facility] Test Catalog Reference: Fourth [place] Definition of Myocardial Infarction. Journal of the [employer] 2018;72:2741-9452 Blood 02/06/2023 5:10 PM EDT 02/06/2023 5:23 PM EDT Narrative Resulting Agency Comment Spec In Lab Alie Gil MD CHEMISTRY ORDERABLES Performing Organization Address City/[facility] Co de Phone Number [facility] [place] [address] * Triglyceride (02/06/2023 5:10 PM EDT) Triglyceride 62 mg/dL [facility] Comment: Average Risk/Lower Risk: <150 mg/dL Borderline High Risk: 150-199 mg/dL High Risk: 200-499 mg/dL Very High Risk: >pn=349 mg/dL Blood 02/06/2023 5:10 PM EDT 02/06/2023 5:23 PM EDT Narrative Resulting Agency Comment Spec In Lab Alie Gil MD CHEMISTRY ORDERABLES Performing Organization Address City/[facility]/ZIP Co de Phone Number [facility] [place] [address] * HDL/Cholesterol Profile (02/06/2023 5:10 PM EDT) Cholesterol, Total 166 mg/dL [facility] Comment: Lower Risk: <200 mg/dL Average Risk: 200-239 mg/dL Higher Risk: >xm=730 mg/dL HDL Cholesterol 61 mg/dL [facility] Comment: Males: ?? Higher Risk: <40 mg/dL Females: ?? Higher Risk: <50 mg/dL Cholesterol/HDL Ratio 2.7 ratio [facility] Chol/HDL Interpretation See Note [facility] Comment: Lipid management should be guided by a patient? s ASCVD risk, goals and preferences. ACC/AHA Guidelines recommend high intensity statin if clinical ASCVD or LDL greater than or equal to 190 mg/dL. http://[email or web address]/YSX-IRL-Qlognocjj Measure LDL if Total Cholesterol minus HDL Cholesterol is greater than 220 mg/dL. Adults aged 40-75 with LDL 70-189 mg/dL should have their 10 year ASCVD risk estimated with the ACC/AHA ASCVD risk box estimator http://tools.acc.org/RPHNI-Gvwg-Zjmmnoyfd/ Statin should be discussed if risk greater than or equal to 7.5% in non-diabetics. With diabetes, moderate intensity statin is recommended if risk less than 7.5%, high intensity if risk greater than or equal to 7.5%. Annual lipid monitoring on statins is not necessary. Lifestyle modification is a critical component of ASCVD risk reduction. Blood 02/06/2023 5:10 PM EDT 02/06/2023 5:23 PM EDT Narrative Resulting Agency Comment Spec In Lab Alie Gil MD CHEMISTRY ORDERABLES Performing Organization Address City/[facility]/ZIP Co de Phone Number [facility] [place] [address] * LDL Cholesterol, Direct (02/06/2023 5:10 PM EDT) LDL Cholesterol, Direct 95 mg/dL [facility] Comment: Lowest Risk: <100 mg/dL Lower Risk: 100-129 mg/dL Borderline High Risk: 130-159 mg/dL High Risk: 160-189 mg/dL Very High Risk: >af=797 mg/dL Blood 02/06/2023 5:10 PM EDT 02/06/2023 5:23 PM EDT Narrative Resulting Agency Comment Spec In Lab Alie Gil MD CHEMISTRY ORDERABLES [facility] [place] [address] * Hemoglobin A1c (02/06/2023 5:10 PM EDT) Hemoglobin A1c 5.6 4.3 - 5.6 % [facility] Comment: Reference Range: 4.3 - 5.6% 5.7 - 6.4% - Increased Risk of Developing Diabetes Mellitus >= 6.5% - Consistent with diagnosis of Diabetes Mellitus In the absence of hyperglycemia (i.e. plasma glucose > 200 mg/dL) or classic symptoms of hyperglycemia a repeat measurement of HbA1c should be performed on a separate sample to confirm the diagnosis. Diagnosis and Classification of Diabetes Mellitus, Diabetes Care 2013; 36: Suppl. 1, Z37-63 Estimated Average Glucose See note mg/dL [facility] Comment: Estimated Average Glucose not appropriate for patients over 70 years of age. eAG equivalents for HbA1c percentages: HbA1c(%) ?eAG(mg/dL) 6.0 ?126 6.5 ?140 7.0 ?154 7.5 ?169 8.0 ?183 8.5 ?197 9.0 ?212 9.5 ?226 10.0 ? 240 Limitations: The eAG calculation has not been validated on women, individuals below 18 years old and above 70 years old, and individuals with hemoglobinopathies. Additional resources are available on the ADA website. Kristian TERESA, Sam J, Jenni R, et al. ??Translating the A1C assay into estimated average glucose values. ??Diabetes Care 2008:31(8):9124-8758. Blood 02/06/2023 5:10 PM EDT 02/06/2023 5:23 PM EDT Narrative Resulting Agency Comment Spec In Lab Alie Gil MD CHEMISTRY ORDERABLES Performing Organization Address City/[facility] Co de Phone Number [facility] [place] [address] * TSH [place] (02/06/2023 5:10 PM EDT) Thyroid Stimulating Hormone 1.95 0.27 - 4.20 mcIU/mL [facility] Comment: Reference Interval (mcIU/mL): Females: ??First Trimester: 0.23-3.88 ??Second Trimester: 0.22-3.90 ??Third Trimester: 0.44-4.66 Blood 02/06/2023 5:10 PM EDT 02/06/2023 5:23 PM EDT Narrative Resulting Agency Comment Spec In Lab Alie Gil MD CHEMISTRY ORDERABLES Performing Organization Address [facility] Co de Phone Number [facility] [place] [address] * Lipid Panel (Reflex Direct LDL) (02/06/2023 5:10 PM EDT) Cholesterol, Total 166 mg/dL [facility] Comment: Lower Risk: <200 mg/dL Average Risk: 200-239 mg/dL Higher Risk: >ur=030 mg/dL Triglyceride 62 mg/dL [facility] Comment: Average Risk/Lower Risk: <150 mg/dL Borderline High Risk: 150-199 mg/dL High Risk: 200-499 mg/dL Very High Risk: >aw=589 mg/dL HDL Cholesterol 61 mg/dL [facility] Comment: Males: ?? Higher Risk: <40 mg/dL Females: ?? Higher Risk: <50 mg/dL LDL Cholesterol 93 mg/dL [facility] Comment: Lowest Risk: <100 mg/dL Lower Risk: 100-129 mg/dL Borderline High Risk: 130-159 mg/dL High Risk: 160-189 mg/dL Very High Risk: >bf=119 mg/dL Cholesterol/HDL Ratio 2.7 ratio [facility] Lipid Interpretation See Note [facility] Comment: Lipid management should be guided by a patient? s ASCVD risk, goals and preferences. ACC/AHA Guidelines recommend high intensity statin if clinical ASCVD or LDL greater than or equal to 190 mg/dL. [email or web address] Adults aged 40-75 with LDL 70-189 mg/dL should have their 10 year ASCVD risk estimated with the ACC/AHA ASCVD risk box estimator http://tools.acc.org/NSPXG-Vezo-Djpdqdlhm/ Statin should be discussed if risk greater than or equal to 7.5% in non-diabetics. With diabetes, moderate intensity statin is recommended if risk less than 7.5%, high intensity if risk greater than or equal to 7.5%. Annual lipid monitoring on statins is not necessary. Evaluate secondary causes of Triglycerides greater than 500 mg/dL or LDL greater than 190 mg/dL: See table 6 of ACC/AHA Guideline. Lifestyle modification is a critical component of ASCVD risk reduction. Blood 02/06/2023 5:10 PM EDT 02/06/2023 5:23 PM EDT Narrative Resulting Agency Comment Spec In Lab Alie Gil MD CHEMISTRY ORDERABLES Performing Organization Address [facility] Co de Phone Number [facility] [place] [address] * (ABNORMAL) APTT (02/06/2023 5:10 PM EDT) [facility] Signature Partial Thromboplastin Time >160(Crit ical) 25 - 37 sec [facility] Comment: Critical Result called by ?? ALDAIR CRITICAL Results read back by: ? Trung Alba at 2023-02-06 17:57:56 The PTT is NOT appropriate for heparin monitoring. Use the Anti-Xa level for heparin monitoring (HEP UFH) or LMWH monitoring (HEP LMW). A PTT less than 37 seconds generally indicates adequate hemostasis. Blood 02/06/2023 5:10 PM EDT 02/06/2023 5:22 PM EDT Narrative Resulting Agency Comment Spec In Lab Alie Gil MD HEMATOLOGY ORDERABLE S Performing Organization Address City/[facility]/ZIP Co de Phone Number [facility] [place] [address] * (ABNORMAL) Prothrombin Time (02/06/2023 5:10 PM EDT) Prothrombin Time 17.0(H) 9.4 - 12.5 sec [facility] International Normalization Ratio 1.5 [facility] Comment: An INR <2.0 indicates adequate procoagulant activity for hemostasis in most patients without underlying bleeding disorders, though the INR may not adequately reflect hemostatic capacity in patients with liver disease and synthetic impairment. The recommended target INR range for therapeutic anticoagulation is 2.0 ? 3.0 for most applications, though lower and higher ranges may be appropriate depending on clinical circumstances. Blood 02/06/2023 5:10 PM EDT 02/06/2023 5:22 PM EDT Narrative Resulting Agency Comment Spec In Lab Alie Gil MD HEMATOLOGY ORDERABLE S Performing Organization Address [facility] Co de Phone Number [facility] [place] [address] * Calcium (02/06/2023 5:10 PM EDT) Pathologist [facility] Calcium 9.6 8.5 - 10.5 mg/dL [facility] Blood 02/06/2023 5:10 PM EDT 02/06/2023 5:23 PM EDT Narrative Resulting Agency Comment Spec In Lab Alie Gil MD CHEMISTRY ORDERABLES Performing Organization Address [facility] Co de Phone Number [facility] [place] [address] * Magnesium (02/06/2023 5:10 PM EDT) Magnesium 0.87 0.69 - 1.07 mmol/L [facility] Blood 02/06/2023 5:10 PM EDT 02/06/2023 5:23 PM EDT Narrative Resulting Agency Comment Spec In Lab Alie Gil MD CHEMISTRY ORDERABLES Performing Organization Address [facility] Co de Phone Number [facility] [place] [address] * (ABNORMAL) Basic Metabolic Panel (non-fasting) (02/06/2023 5:10 PM EDT) Glucose 100 65 - 199 mg/dL [facility] Comment:Diabetes: >=200 mg/d L plus symptoms Blood Urea Nitrogen 15 8 - 18 mg/dL [facility] Creatinine 0.68(L) 0.70 - 1.20 mg/dL [facility] Sodium 136 135 - 145 mmol/L [facility] Potassium 4.2 3.5 - 5.0 mmol/L [facility] Comment: Please note: ??Patients with WBC >100,000 may have falsely elevated Potassium levels. ??For accurate Potassium quantification in these patients send serum separator tube (gold top) for subsequent determinations. ??Contact the Clinical Chemistry Laboratory if there are any questions. Chloride 101 98 - 107 mmol/L [facility] Carbon Dioxide 24 22 - 31 mmol/L [facility] Anion Gap 11 5 - 15 mmol/L [facility] Calcium 9.6 8.5 - 10.5 mg/dL [facility] Est Glomerular Filtration Rate 90 >=60 mL/min/1. 73 m?? [facility] Comment: This patient's estimated [...] and symptoms in addition to eGFR. Blood 02/06/2023 5:10 PM EDT 02/06/2023 5:23 PM EDT Narrative Resulting Agency Comment Spec In Lab Alie Gil MD CHEMISTRY ORDERABLES [facility] [place] [address] * EKG 12 Lead (02/06/2023 4:54 PM EDT) Ventricular rate 59 BPM MUSE SYSTEM P-R Interval 576 ms MUSE SYSTEM QRS Duration 82 ms MUSE SYSTEM Q-T Interval 494 ms MUSE SYSTEM QTC Calculated (Bezet) 489 ms MUSE SYSTEM Calculated R Lena 2 degrees MUSE SYSTEM Calculated T Lena 5 degrees MUSE SYSTEM INTERPRETATION Sinus rhythm with 1st degree A-V block Septal infarct (cited on or before 22-JUL-2021) Abnormal ECG When compared with ECG of 22-JUL-2021 10:22, [place] interval has increased T wave inversion less evident in Inferior leads QT has lengthened Confirmed by MD Palomo Danette ([id number]) on 02/07/2023 4:09:13 PM MUSE SYSTEM 02/06/2023 4:54 PM EDT 02/07/2023 4:09 PM EDT Alie Gil MD ECG ORDERABLES MUSE SYSTEM documented in this encounter Visit Diagnoses Diagnosis NSTEMI (non-ST elevated myocardial infarction)- Primary Acute myocardial infarction, subendocardial infarction, episode of care unspecified Non-ST elevation myocardial infarction (NSTEMI) Acute myocardial infarction, subendocardial infarction, episode of care unspecified Bradycardia Other specified cardiac dysrhythmias Mobitz (type) I (Wenckebach's) atrioventricular block Other second degree atrioventricular block Bradycardia Other specified cardiac dysrhythmias documented in this encounter Admitting Diagnoses Diagnosis NSTEMI (non-ST elevated myocardial infarction) Acute myocardial infarction, subendocardial infarction, episode of care unspecified documented in this encounter Administered Medications Inactive Administered Medications - up to 3 most recent administrations Medication Order MAR Action Action Date Dose Rate Site aspirin chewable tablet 81 mg 81 mg, Oral, DAILY, First dose on Tue02/07/23 at 0900, Until Discontinued, Routine Given 02/07/2023 8:57 AM EDT 81 mg clopidogreL (Plavix) tablet 600 mg 600 mg, Oral, ONCE, 1 dose, On Tue02/06/23 at 1800, Routine Given 02/06/2023 6:01 PM EDT 600 mg clopidogreL (Plavix) tablet 75 mg 75 mg, Oral, DAILY, First dose on 02/07/23 at 0900, Until Discontinued, Routine Given 02/07/2023 8:57 AM EDT 75 mg heparin (porcine) 25,000 unit/500 mL (50 unit/mL) infusion 1 dose, Starting on Tue02/06/23 at 1502, Until Tue02/06/23 at 1556, TRUNG ALBA: cabinet override heparin (porcine) 50 units/mL in dextrose 5% 500 mL infusion 0-5,000 Units/hr (0-100 mL/hr), Intravenous, CONTINUOUS, Starting on Tue02/06/23 at 1645, Until 02/07/23 at 1116, Begin infusion at 950 units per hr [...] by 250 units per hour (3 units/kg/hr) Repeat Heparin UFH Level 6 hours after initiating heparin. Then 6 hours after each dose adjustment. When 2 consecutive Heparin UFH Level within target range of 0.3 - 0.7 international unit/mL, change Heparin UFH Level to once every 24 hours with A.M. labs while on heparin. RN to order required Heparin UFH Level - Per Protocol, Routine Rate/Dose Verify 02/07/2023 4:00 AM EDT 650 Units/hr 13 mL/hr Rate/Dose Change 02/07/2023 12:27 AM EDT 650 Units/hr 13 m L/hr Rate/Dose Verify 02/07/2023 12:00 AM EDT 750 Units/hr 15 m L/hr levothyroxine (Synthroid) tablet 68.5 mcg 68.5 mcg, Oral, EVERY MORNING, First dose (after last modification) on Tue02/07/23 at 0600, Until Discontinued, Routine Given 02/07/2023 6:54 AM EDT 68.5 mcg rosuvastatin (Crestor) tablet 40 mg 40 mg, Oral, EVERY EVENING, First dose on Tue02/06/23 at 1700, Until Discontinued, Routine Given 02/07/2023 6:57 PM EDT 40 mg Given 02/06/2023 4:57 PM EDT 40 mg sodium chloride 0.9 % (flush) (BD PosiFlush Normal Saline 0.9) flush 5 mL 5 mL, Intravenous, 2 TIMES DAILY, First dose on Tue02/06/23 at 2100, Until Discontinued, Routine Given 02/06/2023 9:00 PM EDT 5 mLs sodium chloride 0.9 % (flush) (BD PosiFlush Normal Saline 0.9) flush 5 mL 5 mL, Intravenous, 2 TIMES DAILY, First dose on Tue02/06/23 at 2100, Until Discontinued, Routine Given 02/06/2023 9:00 PM EDT 5 mLs sodium chloride 0.9% infusion 100 mL/hr, Intravenous, CONTINUOUS, Starting on Tue02/07/23 at 1045, Until Tue02/07/23 at 1844, Recovery (Recovery-Hospital Unit) [facility] 02/07/2023 10:45 AM EDT 100 mL/hr 100 m L/hr documented in this encounter Active and Recently Administered Medications Times are shown in EDT. Scheduled Medication Order 02/05/2023 02/06/2023 02/07/2023 aspirin chewable tablet 81 mg 81 mg, Oral, DAILY, First dose on Tue02/07/23 at 0900, Until Discontinued, Routine 0857 (Given - Provid er: Trung Alba RN)0920 ([facility] Hold - Provider: Admin Adt - Reason: Transfer to a Procedural area)1053 (OCT Unhold - Provider: Admin Adt) clopidogreL (Plavix) tablet 600 mg (COMPLETED)(Linked Group 1) 600 mg, Oral, ONCE, 1 dose, On 02/06/23 at 1800, Routine 1801 (Given - Provider: Trung Alba RN) clopidogreL (Plavix) tablet 75 mg (CANCELED)(Linked Group 1) 75 mg, Oral, DAILY, First dose on Tue02/07/23 at 0900, Until Discontinued, Routine 0857 (Given - Provid er: Trung lAba RN)0920 ([facility] Hold - Provider: Admin Adt - Reason: Transfer to a Procedural area)1053 ([facility] Unhold - Provider: Admin Adt) levothyroxine (Synthroid) tablet 68.5 mcg 68.5 mcg, Oral, EVERY MORNING, First dose (after last modification) on Tue02/07/23 at 0600, Until Discontinued, Routine 0654 (Given - Provid er: Sean Lindo RN)0920 ([facility] Hold - Provider: Admin Adt - Reason: Transfer to a Procedural area)1053 ([facility] Unhold - Provider: Admin Adt) rosuvastatin (Crestor) tablet 40 mg 40 mg, Oral, EVERY EVENING, First dose on Tue02/06/23 at 1700, Until Discontinued, Routine 1657 (Given - Provider: Trung Alba RN) 0920 ([facility] Hold - Provider: Admin Adt - Reason: Transfer to a Procedural area)1053 ([facility] Unhold - Provider: Admin Adt)1857 (Given - Provider: Trung Alba RN) sodium chloride 0.9 % (flush) (BD PosiFlush Normal Saline 0.9) flush 5 mL 5 mL, Intravenous, 2 TIMES DAILY, First dose on 02/06/23 at 2100, Until Discontinued, Routine 2100 (Given - Provider: Sean Lindo RN) 0900 (Not Given - Provider: Trung Alba RN - Reason: See comment - Comment: infusing)0920 ([facility] Hold - Provider: Admin Adt - Reason: Transfer to a Procedural area)1053 ([facility] Unhold - Provider: Admin Adt) sodium chloride 0.9 % (flush) (BD PosiFlush Normal Saline 0.9) flush 5 mL 5 mL, Intravenous, 2 TIMES DAILY, First dose on 02/06/23 at 2100, Until Discontinued, Routine 2100 (Given - Provider: Sean Lindo RN) 0900 (Not Given - Provider: Trung Alba RN - Reason: See comment - Comment: infusing)0920 (OCT Hold - Provider: Admin Adt - Reason: Transfer to a Procedural area)1053 ([facility] Unhold - Provider: Admin Adt) Continuous Medication Order 02/05/2023 02/06/2023 02/07/2023 heparin (porcine) 50 units/mL in dextrose 5% 500 mL infusion (CANCELED)(Linked Group 2) 0-5,000 Units/hr (0-100 mL/hr), Intravenous, CONTINUOUS, Starting on 02/06/23 at 1645, Until 02/07/23 at 1116, Begin infusion at 950 units per hr [...] by 250 units per hour (3 units/kg/hr) Repeat Heparin UFH Level 6 hours after initiating heparin. Then 6 hours after each dose adjustment. When 2 consecutive Heparin UFH Level within target range of 0.3 - 0.7 international unit/mL, change Heparin UFH Level to once every 24 hours with A.M. labs while on heparin. RN to order required Heparin UFH Level - Per Protocol, Routine 1556 (New Bag - Provider: Trung Alba RN)1758 (Paused - Provider: Trung Alba RN)1800 (Restarted - Provider: Trung Alba RN)2000 (Rate/Dose Verify - Provider: Sean Lindo RN) 0000 (Rate/Dose Verify - Provider: Sean Lindo RN)0027 (Rate/Dose Change - Provider: Sean Lindo RN - Comment: ufh .78)0400 (Rate/Dose Verify - Provider: Sean Lindo RN)0916 (Stopped - Provider: Trung Alba RN)0920 (OCT Hold - Provider: Admin Adt - Reason: Transfer to a Procedural area)1053 ([facility] Unhold - Provider: Admin Adt) sodium chloride 0.9% infusion 100 mL/hr, Intravenous, CONTINUOUS, Starting on Tue02/07/23 at 1045, Until Tue02/07/23 at 1844, Recovery (Recovery-Hospital Unit) 1045 (New Bag - Provider: Trung Alba RN) PRN Medication Order 02/05/2023 02/06/2023 02/07/2023 fentaNYL (pf) (50 mcg/mL) multi-dose injection (CANCELED) PRN, Starting on Tue02/07/23 at 0928, Until Tue02/07/23 at 1003, Intra-Operative (Intra-Procedure), Routine 0928 (Given - Provid er: Ever White RN) heparin (porcine) (1,000 units/mL) injection (CANCELED) PRN, Starting on Tue02/07/23 at 0936, Until Tue02/07/23 at 1003, Intra-Operative (Intra-Procedure), Routine 0936 (Given - Provid er: Scooter Arevalo RN) iohexoL (Omnipaque) (350 mg/mL) solution (CANCELED) PRN, Starting on Tue02/07/23 at 0954, Until Tue02/07/23 at 1003, Intra-Operative (Intra-Procedure), Routine 0954 (Given - Provid er: MARGARITA Lake) lidocaine (Xylocaine) 1% (10 mg/mL) injection 3 mg 3 mg (0.3 mL), Subcutaneous, ONCE PRN, 1 dose, Starting on Tue02/06/23 at 1550, Until Tue02/07/23 at 2257, for discomfort with PIV insertion, Routine 919 (OCT Hold - Pro vider: Admin Adt - Reason: Transfer to a Procedural area)1053 ([facility] Unhold - Provider: Admin Adt) midazolam (pf) (Versed) (1 mg/mL) multi-dose injection (CANCELED) PRN, Starting on Tue02/07/23 at 0928, Until Tue02/07/23 at 1003, Intra-Operative (Intra-Procedure), Routine 927 (Given - Provid er: Ever White RN) nitroGLYcerin (Nitrostat) disintegrating tablet 0.4 mg 0.4 mg, Sublingual, EVERY 5 MIN PRN, Starting on Tue02/06/23 at 1550, Until Tue02/07/23 at 2257, Chest pain, May repeat every 5 minutes for a total of three doses. Notify provider if chest pain not relieved with nitroglycerin. Do not administer nitroglycerin if the patient has received or taken phosphodiesterase (PDE-5) inhibitors such as sildenafil, tadalafil or vardenafil within the last 24 to 72 hours., Routine 919 (Oct - Pro vider: Admin Adt - Reason: Transfer to a Procedural area)1053 ([facility] Unhold - Provider: Admin Adt) nitroGLYcerin 100 mcg/mL intracoronary dilution (CANCELED) PRN, Starting on Tue02/07/23 at 0931, Until Tue02/07/23 at 1003, Intra-Operative (Intra-Procedure), Routine 0931 (Given - Provid er: MARGARITA Lake) sodium chloride 0.9 % (flush) (BD PosiFlush Normal Saline 0.9) flush 5-20 mL 5-20 mL, Intravenous, EVERY 1 MIN PRN, Starting on Tue02/06/23 at 1550, Until Tue02/07/23 at 2257, flush, Flush pertains to all indwelling lines. Flush per protocol found in the job aid using the link provided on this medication record., Routine 919 (Oct - Pro vider: Admin Adt - Reason: Transfer to a Procedural area)1053 (OCT Unhold - Provider: Admin Adt) sodium chloride 0.9 % (flush) (BD PosiFlush Normal Saline 0.9) flush 5-20 mL 5-20 mL, Intravenous, EVERY 1 MIN PRN, Starting on Tue02/06/23 at 1550, Until Tue02/07/23 at 2257, flush, Flush pertains to all indwelling lines. Flush per protocol found in the job aid using the link provided on this medication record., Routine 0920 (OCT Hold - Pro vider: Admin Adt - Reason: Transfer to a Procedural area)1053 (OCT Unhold - Provider: Admin Adt) verapamiL (Isoptin) (2.5 mg/mL) injection (CANCELED) PRN, Starting on Tue02/07/23 at 0931, Until Tue02/07/23 at 1003, Administer over 2 Minutes, Intra-Operative (Intra-Procedure) 0931 (Given - Provid er: MARGARITA Lake) Linked Groups Order Group 1: clopidogreL (Plavix) tablet 600 mg (COMPLETED)Jump to med 600 mg, Oral, ONCE, 1 dose, On Tue02/06/23 at 1800, Routine Followed by clopidogreL (Plavix) tablet 75 mg (CANCELED)Jump to med 75 mg, Oral, DAILY, First dose on Tue02/07/23 at 0900, Until Discontinued, Routine Group 2: heparin (porcine) 50 units/mL in dextrose 5% 500 mL infusion (CANCELED)Jump to med 0-5,000 Units/hr (0-100 mL/hr), Intravenous, CONTINUOUS, Starting on Tue02/06/23 at 1645, Until Tue02/07/23 at 1116, Begin infusion at 950 units per hr [...] by 250 units per hour (3 units/kg/hr) Repeat Heparin UFH Level 6 hours after initiating [...] Intravenous, BOLUS PER HEPARIN PROTOCOL, Starting on 02/06/23 at 1549, Until 02/07/23 at 1116, Per Protocol, START ADJUSTMENT SCHEDULE 6 HOURS [...] than 0.2 international unit/mL: No Bolus, Routine documented in this encounter Care Teams Certified Fire Investigator Relationship Specialty Start Date End Date Vicenta Ndiaye APRN [address] [place] [address] PCP - General Family Medicine 03/11/21 documented as of this encounter
--- OUTSIDE RECORDS SUMMARY | 2024-05-04 01:41 | XMS_ITS | Encounter Summary ---
[place] [address] Care Team Providers Care Sales Service Representative Name Role Phone Senthil Vicenta ASIM Primary Care Provider [phone] Encounter Details Date Type Department Care Team (Late st Contact Info) Description 02/06/2023 External [place] [address] Social History Tobacco Use Types Packs/Day Years Used Date Smoking Tobacco: Former Smokeless Tobacco: Never Comments:college student for a few months Sex and Gender Information Value Date Recorded Sex Assigned at Not on file Gender Identity Not on file Sexual Orientation Not on file documented as of this encounter Plan of Treatment Upcoming Encounters Date Type Department Care Team (Late st Contact Info) Description 07/13/2024 10:00 AM EST Hospital Encounter Non[place] [address] Arrived documented as of this encounter Procedures Procedure Name Priority Date/Time Associated Diagnosis Comments ECG SCAN Routine 02/06/2023 10:28 AM EDT ECG SCAN Routine 02/06/2023 10:03 AM EDT documented in this encounter Results * Scan Doc: ECG (02/06/2023 10:28 AM EDT) Historical Provider MD BRONSON MONTGOMERY SCAN EX T ORDR/RSLT * Scan Doc: ECG (02/06/2023 10:03 AM EDT) Historical Provider MEDIA MGR SCAN EX T ORDR/RSLT documented in this encounter Visit Diagnoses Not on filedocumented in this encounter Care Teams Sales Service Representative Relationship Specialty Start Date End Date Vicenta Ndiaye APRN [address] [place] [address] PCP - General Family Medicine 03/11/21 documented as of this encounter
--- OUTSIDE RECORDS SUMMARY | 2024-05-04 01:41 | XMS_ITS | Encounter Summary ---
Author Organization [facility] Address [facility] [place] [address] Care Team Providers Care Digital Learning Platforms Manager Name Role Phone Senthil Vicenta ASIM Primary Care Provider [phone] Encounter Details Date Type Department Care Team (Latest Contact Info) Description 09/10/2021 4:20 PM EST TH Visit (TeleHealth) Cardiology at [address] [address] Robin Alvarado MD [facility] [place] [address] Persistent atrial fibrillation Social History Tobacco Use Types Packs/Day Years Used Date Smoking Tobacco: Former Smokeless Tobacco: Never Comments:college student for a few months Sex and Gender Information Value Date Recorded Sex Assigned at Not on file Gender Identity Not on file Sexual Orientation Not on file documented as of this encounter Progress Notes * Robin Alvarado MD - 09/10/2021 4:20 PM EST Images from the original note were not included. Section of Cardiology/Cardiac Electrophysiology Clinical Cardiac Electrophysiology Follow Up Patient ID Elena Dave 1945 [id number] Elena Dave is following up in EP clinic C/c: AF History Ms. Bolanos and I met via telephone visit today regarding her atrial fibrillation. We last met in June after her cardioversion at which point she was maintaining sinus rhythm and feeling well. Today, she reports feeling even better. She does not feel that atrial fibrillation has recurred. She is able to exert herself much more than before her cardioversion, for example, able to vacuum the whole house, rather than a room. She has not had syncope or paroxysmal lightheadedness. She doesdescribe some lightheadedness occasionally when rising up after bending over. She reports her heartrate being in the 60s bpm range mostly. No bleeding problems on rivaroxaban, which she continues to take. Her [id number] score is at least 4 for HTN, age, female sex. Problem List Patient Active Problem List Diagnosis ??? Atrial fibrillation ??? Hypertension ??? Hypothyroidism Review of Systems ROS See above. All other review of systems negative. Meds Current Outpatient Medications Medication Sig Dispense Refill ??? multivitamin (THERAGRAN) Tablet Take 1 tablet by mouth daily. ??? fish oil-omega-3 fatty acids 1,000 mg Capsule Take 2 g by mouth daily. ??? Levothyroxine 13 mcg Capsule Daily ??? losartan-hydrochlorothiazide (HYZAAR) 100-12.5 mg Tablet 1 tablet. ??? rivaroxaban (Xarelto) 20 mg Tablet Daily ??? rosuvastatin (Crestor) 5 mg Tablet 2.5 mg. No current facility-administered medications for this visit. Social History Social History Socioeconomic History ??? Marital status: Spouse name: Not on file ??? Number of children: Not on file ??? Years of education: Not on file ??? Highest education level: Not on file Occupational History ??? Not on file Tobacco Use ??? Smoking status: Former Smoker ??? Smokeless tobacco: Never Used ??? Tobacco comment: college student for a few months Vaping Use ??? Vaping Use: Never used Substance and Sexual Activity ??? Alcohol use: Not on file ??? Drug use: Not on file ??? Sexual activity: Not on file Other Topics Concern ??? Not on file Social History Narrative ??? Not on file Social Determinants of Health Financial Resource Strain: Not on file Food Insecurity: Not on file Transportation Needs: Not on file Physical Activity: Not on file Housing Stability: Not on file Family History No family history on file. Exam None, telephone visit I have personally reviewed all pertinent labs, cardiac rhythm monitors and imaging Impression/Plan Ms. Dave is doing very well. No evidence of recurrent atrial fibrillation. No evidence of symptomatic bradycardia. She would like to continue the course for right now (rivaroxaban for stroke prevention ([id number] score at least 4; no antiarrhythmic; no ablation) and give the EP clinic acall if there are any changes. This is entirely reasonable. Will see her in one year for routine follow up. Robin Alvarado MD 15 total minutes were spent on this encounter for patient counseling, medical record review, note entry, Cc: Vicenta Ndiaye APRN documented in this encounter Plan of Treatment Upcoming Encounters Date Type Department Care Team (Late st Contact Info) Description 07/13/2024 10:00 AM EST Hospital Encounter Non-Invasive [place] [address] Arrived documented as of this encounter Visit Diagnoses Diagnosis Persistent atrial fibrillation Atrial fibrillation documented in this encounter Care Teams Digital Learning Platforms Manager Relationship Specialty Start Date End Date Vicenta Ndiaye APRN [address] [place] [address] PCP - General Family Medicine 03/11/21 documented as of this encounter
--- OUTSIDE RECORDS SUMMARY | 2024-05-04 01:41 | XMS_ITS | Encounter Summary ---
[place] [address] Care Team Providers Care Benzene Still Utility Operator Name Role Phone Vicenta Ndiaye APRN Primary Care Provider Reason for Visit * Auth/Cert Specialty Diagnoses / Procedures Referred By Contac t Referred To Contact Diagnoses NSTEMI (non-ST elevated myocardial infarction) n-stemi Procedures EMERGENCY IPI Alie Gil MD [facility] [place] [address] [facility] Referral ID Status Reason Start Date Expiration Date Visits Re quested Visits Authorized [id number] 1 1 Encounter Details Date Type Department Care Team (Late st Contact Info) Description 02/07/2023 10:00 AM EDT - 02/07/2023 11:00 AM EDT Surgery Curator [place] [address] Laureano Lyons MD [facility] [place] [address] CARDIAC CATHETERIZATION Social History Tobacco Use Types Packs/Day Years [...] Sign Reading Time Taken Comments Blood Pressure 117/63 02/07/2023 10:30 AM EDT Pulse 48 02/07/2023 10:30 AM EDT Temperature 36.6 ??C (97.9 ??F) 02/07/2023 7:32 AM ED T Respiratory Rate 13 02/07/2023 10:30 AM EDT Oxygen Saturation 99% 02/07/2023 10:30 AM EDT Inhaled Oxygen Concentration - - Weight 79.9 kg (176 lb 2.4 oz) 02/07/2023 2:38 A M EDT Height 160 cm (5' 3) 02/06/2023 3:00 PM EDT Body Mass Index 31.2 02/06/2023 3:00 PM EDT documented in this encounter Discharge Summaries * Alie Gil MD - 02/07/2023 5:00 PM EDT [facility] Inpatient Discharge Summary Patient Name: Elena Thacker [...] Procedures: 02/07/23 [facility] Hemodynamics Left Heart Pressures Resting: Syst Diast [...] cardiac disease who presents in transfer from [facility] with NSTEMI and asymptomatic sinus bradycardia. Elena reports she developed substernal chest pressure upon ambulating to the kitchen this morning;10/10, radiating to her neck and associated with diaphoresis, no n/v, lightheadedness or dizziness.She plays [employer] ball several times a week with her where her average HR is 114 and can notrecall any episodes of chest pressure. She presented to EMS after the pain became unrelenting this AM, no alleviating factors attempted. On arrival to [facility]: VSS 151/57, HR 40- 55, SpO2 97% [...] Heparin bolus + gtt On arrival to [facility], she denies any ongoing chest pain. In [...] presented to on 02/06/2023 in transfer from [facility] with concern for NSTEMI and asymptomatic AV [...] Doctor: ALIE GIL Your Primary Care Provider: Vicenat Ndiaye APRN [phone] For questions regarding this document or issues relating to this hospitalization on the Medical Service, please contact your inpatient physician through the [facility] Budget Consultant . Issues afterhours and on weekends will be handled by the providers on-call. General Instructions None Future Appointments and Orders Future Orders Complete By Expires Ziopatch 48 Hrs-15 Days [[id number] CPT(R)] 02/07/2023 08/09/2023 Process Instructions: Scheduling Instructions: Questions: Does the patient have a pacemaker? If yes provide HI/LO settings: Apply for 7 or 14 days?: 14 Where will study be performed?: [facility] Clinics Referral to Cardiac Electrophysiology [REF11 Custom] As directed Process Instructions: If no progress note charted, please enter Clinical details in comments. Scheduling Instructions: Questions: My question or request is: Bradycardia; Mobitz type I, f/u Zio Patch results Provider Contact Information: Roc[place] [address] Discharge References/Attachments: Discharge References/Attachments Cardiac Catheterization: Left (Stateless) For questions regarding this document or issues relating to this hospitalization on the Medical Service, please contact your inpatient physician through the [facility] Budget Consultant . Issues afterhours and on weekends will [...] follow up appointment. Your Inpatient Doctor: ALIE GLI Your Primary Care Provider: Vicenta Ndiaye, ASIM [phone] For questions regarding this document or issues relating to this hospitalization on the Medical Service, please contact your inpatient physician through the [facility] Budget Consultant . Issues afterhours and on weekends will be handled by the providers on-call. * Attachments The following attachments cannot be sent through Care Everywhere. * Cardiac Catheterization: Left (Stateless) documented in this encounter Medications at Time [...] of this encounter Progress Notes * Alie iGl MD - 02/07/2023 7:17 AM EDT Cardiovascular Medicine Progress Note Patient info: Elena Alcala DobsonGustavo 77 y.o. : 1945 Date of Admission: 02/06/2023 ( Hospital Day 1 day ) Responsible Attending: Alie Gil MD PCP: Vicenta Ndiaye APRN ([phone]) No chief complaint on file. ID: Elena Thacker is a 77 y.o. female with past medical history significant for pAfib s/p DCCV in 2020 currently on Xarelto, Sinus and AV node conduction disease, HTN, HLD, hypothyroidism and extensive family history of cardiac disease who presented to on 02/06/2023 in transfer from [facility] with concern for NSTEMI and asymptomatic AV [...] Gas): No results found for: PHART, PO2ART, MKL2MCO, ESH6EYK VBG (Venous Blood Gas): No results for input(s): PHVEN, UZS7SLL, PO2VEN, XZM2DHG, BEVEN, SKV2LGM in the last 72 hours. 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 Cardiology H&P Patient info: Name: Elena Thacker : 1945 PCP: Vicenta Ndiaye APRN PCP phone number: [phone] Date of Admission: 02/06/2023 ( Hospital Day [...] cardiac disease who presents in transfer from [facility] with NSTEMI and asymptomatic sinus bradycardia. Elena [...] no alleviating factors attempted. On arrival to [facility]: VSS 151/57, HR 40- 55, SpO2 97% [...] Heparin bolus + gtt On arrival to [facility], she denies any ongoing chest pain. In [...] 2.25) performed by Janett Vidal MD at [facility] Family History No family [...] (porcine) heparin (porcine) infusion 1,000 Units/hr (02/06/23 1556) Objective: Vitals Last value Range last 24 [...] in the last 7068 hours. Invalid input(s): OLZTRRWRKQI3D No results for input(s): POCGLU in the last 168 hours. Heme No results for input(s): LDH, HAPTOGLOBIN, URICACID in the last 168 hours. ABG (Arterial Blood Gas) No results found for: PHART, PO2ART, IRO0TLY, SRX4LQV Microbiology: Microbiology Results (Last 30 days) No [...] cardiac disease who presents in transfer from [facility] with NSTEMI and asymptomatic AV block. Clinical [...] #Routine Diet: Daily Healthy Menu Choices/Cardiac diet ([facility]-Diet) NPO diet (Give Meds) DVT Prophylaxis: heparin gtt GI Prophylaxis: none Code Status: Attempt Cardiopulmonary Resuscitation - Inpatient Dispo: Pending clinical course Gabriela Hemphill MD Internal Medicine, PGY-3 Cardiology, M1-S1, #[id number] 02/06/23 4:41 PM CARDIOLOGY STAFF NOTE Elena Thacker is a 77 y.o. year-old female patient whom [facility]. 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 EKG prior to transfer shows NSR with mobitz type 2 block without acute ischemicchanges. She reports no chest pain since transfer to [facility]. She has been loaded with Aspirin 325 [...] in the chart Anna Marie Tarango MD Dormitory Keeper PGY4 [id number] documented in this encounter Plan of Treatment Upcoming Encounters Date Type Department Care Team (Late st Contact Info) Description 07/13/2024 10:00 AM [facility] Hospital Encounter Non-Invasive [place] [address] Arrived Scheduled Referrals Name Type Priority Associated [...] 5:10 PM EDT DIFFERENTIAL, AUTOMATED Routine 02/07/20 23 5:10 PM EDT HC PARTIAL THROMBOPLASTIN TIME Routine 02/06/2023 5:10 PM EDT PROTHROMBIN TIME Routine 02/06/2023 5:10 PM EDT CBC (WITH DIFF) Routine 02/06/2023 5:10 PM EDT TRIGLYCERIDE Routine 02/06/2023 5:10 PM EDT PRO-BRAIN NATRIURETIC PEPTIDE Routine 02/06/2023 5:10 PM EDT MAGNESIUM Routine 02/06/2023 5:10 PM EDT LDL CHOLESTEROL, DIRECT Routine 02/07/20 23 5:10 PM EDT HDL/CHOL PROFILE Routine 02/06/2023 [...] from the original result were not included. [facility] ? 'Zio Patch' Ambulatory Cardiac Event [...] were present. Isolated VEs were occasional (1.1%, 16985), VE Couplets were rare (<1.0%, 55), and [...] D-Dimer 320 0 - 500 FEU ng/ml [facility] Comment: The D-Dimer assay is [...] Lab Alie Gil MD HEMATOLOGY ORDERABLE S [facility] [place] [address] * CARDIAC CATHETERIZATION (02/07/2023 10:00 AM EDT) Anatomical Region Laterality Modality Other Narrative 02/07/2023 10:07 AM EDT ?[facility] ? Cardiac Catheterization/Intervention Report ? Patient Name: Elena Thacker ? Procedure Date: 02/07/2023 ? A #: [id number] ? Primary Physician: Kelvin Hunt ? Case #: [id number] ? File Name: [id number] ? Catheterization Order Number: [id number] ? [facility] Final Report [place], [place] ? Patient Name: ? Elena R. [place] ?ID#: ?[id number] ? : ?1945 ? Procedure Date: ? February 07, 2023 ?Case #: ? [id number] ? Room: ? 1 ? Case Physician: ? Kelvin S Marilee, M.D. ? Start: ?09:29 ? Admission: ??02/06/2023 [...] procedure was Elective. 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 Report Finalized: 02/07/2023 ??09:59 ? Laureano P Serena HIGUERA CARDIAC CATH ORDERAB LES * ECHO COMPLETE (02/07/2023 9:15 AM EDT) EF 60 HEARTLAB SYSTEM Anatomical Region Laterality Modality Cardiac Other 02/07/2023 8:12 AM EDT Narrative 02/07/2023 9:48 AM EDT ? Echocardiogram Report Name: ELENA THACKER ? Study Date: 02/07/2023 08:12 AMBP: 138/73 mmHg ? Patient Location: [address] : 1945 ? Height: 160 cm ? Account: [id number] Age: 77 yrs ? Weight: 80 kg Gender: Female ?BSA: 1.8 m2 Ordering Physician: ALIE GIL Referring Physician: CHANEL VARGAS Performed By: Teri Pollack RDCS Reason For Study: NSTEMI Exam Location: [facility]. Interpretation Summary Left ventricular systolic function is normal. The left ventricular ejection fraction is 60% by Smith's biplane. There are no segmental wall motion abnormalities. The left atrium is mildly dilated. There is mild to moderate mitral regurgitation. Other details as noted below. Procedure Complete-[id number]. Satisfactory quality. Left Ventricle There is no [...] Date: 308:12 AMBP: 138/73 mmHg Patient Location: [id number] : 1945 Height: 160 cm Account: [id number] Age: 77 yrs Weight: 80 kg Gender: Female BSA: 1.8 m2 Ordering Physician: ALIE GIL Referring Physician: CHANEL VARGAS Performed By: Teri Pollack RDCS Reason For Study: NSTEMI Exam Location: [facility]. Interpretation Summary Left ventricular systolic function is normal. The left ventricularejection fraction is 60% by Smith's biplane. There are no segmental wall motion abnormalities. The left atrium is mildly dilated. There is mild to moderate mitral regurgitation. Other details as noted below. Procedure Complete-[id number]. Satisfactory quality. Left Ventricle There is no [...] (Bezet) 408 ms MUSE SYSTEM Calculated P [place] 32 degrees MUSE SYSTEM Calculated R [place] -4 degrees MUSE SYSTEM Calculated T [place] -19 degrees MUSE SYSTEM INTERPRETATION Sinus bradycardia with 2nd degree A-V block (Mobitz I) Occasional Premature ventricular complexes Possible Anterior infarct (cited on or before 22-JUL-2021) Abnormal ECG When compared with ECG of 06-FEB-2023 16:54, Ana (Mobitz I Second Degree) heart block has replaced first degree heart block Questionable change in initial forces of Anterior leads Nonspecific T wave abnormality now evident in Anterolateral leads QT has shortened Confirmed by MD Dewey, Kami ([id number]) on 02/07/2023 4:10:26 PM MUSE SYSTEM 02/07/2023 7:44 AM EDT 02/07/2023 4:10 PM EDT Alie Gil MD ECG ORDERABLES MUSE SYSTEM * (ABNORMAL) Differential, Automated (02/07/2023 6:27 AM EDT) Pathologist [facility] [place] Neutrophil % 38.9 % [facility] Neutrophil Absolute 1.53(L) 1.70 - 6.10 x10(3)/mc L [facility] Lymph % 49.0 % [facility] Lymphocytes Abs 1.9 0.9 - 3.2 x10(3)/mc L [facility] Monocyte % 9.2 % [facility] Monocyte Abs 0.4 0.3 - 0.9 x10(3)/mc L [facility] Eos % 1.8 % [facility] Eosinophils Abs 0.1 0.0 - 0.4 x10(3)/mc L [facility] Basophil % 0.8 % [facility] Baso Absolute 0.0 0.0 - 0.1 x10(3)/mc L [facility] Immature Gran % 0.30 % [facility] Comment: Immature granulocytes(IG's)percentage and absolute count will include metamyelocytes, myelocytes, and promyelocytes. Blood smears from CBCs yielding IG's will be scanned manually for concordance. If this scan disagrees with the automated IG or if promyelocytes are noted, a manual differential will be performed. Immature Gran Absolute 0.01 0.00 - 0.04 x10(3)/mc L [facility] Blood 02/07/2023 6:27 AM EDT 02/07/2023 6:46 AM EDT Narrative Resulting Agency Comment Spec In Lab Gabriela Hemphill MD HEMATOLOGY ORDERABLE S [facility] [place] [address] * (ABNORMAL) Hemogram (02/07/2023 6:27 AM EDT) White Blood Cell 3.9(L) 4.0 - 9.5 x10(3)/mc L [facility] Red Blood Cell 4.85 4.00 - 5.21 x10(6)/mc L [facility] Hemoglobin 14.8 11.7 - 15.5 g/dL [facility] Hematocrit 44.1 35.7 - 45.8 % [facility] Mean Cell Volume 90.9 82.6 - 94.4 fL [facility] Mean Cell Hemoglobin 30.5 27.1 - 32.0 pg [facility] Mean Cell Hemoglobin Concentration 33.6 31.7 - 35.0 g/dL [facility] Platelet 158 145 - 357 x10(3)/mc L [facility] RDW Standard Deviation 41.5 37.0 - 46.0 fL [facility] RDW coefficient of variation 12.5 11.5 - 14.1 % [facility] Mean Platelet Volume 10.4 7.6 - 12.9 fL [facility] NRBC% auto 0.0 % [facility] NRBC Absolute 0.000 0.000 - 0.000 x10(3)/mc L [facility] Blood 02/07/2023 6:27 AM EDT 02/07/2023 6:46 AM EDT Narrative Resulting Agency Comment Spec In Lab Gabriela Hemphill MD HEMATOLOGY ORDERABLE S Performing Organization Address City/[facility] Co de Phone Number [facility] [place] [address] * Heparin (unfractionated) Level (02/07/2023 6:27 AM EDT) UF Heparin 0.49 IU/mL [facility] Comment: Heparin (anti-Xa) levels should [...] MD HEMATOLOGY ORDERABLE S Performing Organization Address [facility] Co de Phone Number [facility] [place] [address] * Magnesium (02/07/2023 6:27 AM EDT) Magnesium 0.91 0.69 - 1.07 mmol/L [facility] Blood 02/07/2023 6:27 AM EDT 02/07/2023 6:46 AM EDT Narrative Resulting Agency Comment Spec In Lab Alie Gil MD CHEMISTRY ORDERABLES Performing Organization Address City/[facility]/ZIP Co de Phone Number [facility] [place] [address] * (ABNORMAL) Basic Metabolic Panel (non-fasting) (02/07/2023 6:27 AM EDT) Glucose 105 65 - 199 mg/dL [facility] Comment:Diabetes: >=200 mg/d L plus symptoms Blood Urea Nitrogen 14 8 - 18 mg/dL [facility] Creatinine 0.63(L) 0.70 - 1.20 mg/dL [facility] Sodium 135 135 - 145 mmol/L [facility] Potassium 4.0 3.5 - 5.0 mmol/L [facility] Comment: Please note: ??Patients with WBC >100,000 may have falsely elevated Potassium levels. ??For accurate Potassium quantification in these patients send serum separator tube (gold top) for subsequent determinations. ??Contact the Clinical Chemistry Laboratory if there are any questions. Chloride 101 98 - 107 mmol/L [facility] Carbon Dioxide 22 22 - 31 mmol/L [facility] Anion Gap 12 5 - 15 mmol/L [facility] Calcium 9.3 8.5 - 10.5 mg/dL [facility] Est Glomerular Filtration Rate 91 >=60 mL/min/1. 73 m?? [facility] Comment: This patient's estimated GFR [...] Gil MD CHEMISTRY ORDERABLES Performing Organization Address [facility] Co de Phone Number [facility] [place] [address] * Heparin (unfractionated) Level (02/06/2023 11:50 PM EDT) Pathologist [facility] [place] UF Heparin 0.78 IU/mL [facility] Comment: Heparin (anti-Xa) levels should be [...] Lab Alie Gil MD HEMATOLOGY ORDERABLE S [facility] [place] [address] * (ABNORMAL) Troponin (02/06/2023 7:25 PM EDT) [facility] Troponin-T, High Sensitivity 78(H) <=14 ng/L [facility] Comment: This patient's troponin T [...] troponin value can be found in the [facility] Test Catalog Troponin - [facility] Test Catalog Reference: Fourth [place] Definition of Myocardial Infarction. Journal of the [place] [employer] 2018;72:3173-4826 Blood 02/06/2023 7:25 PM EDT 02/06/2023 7:30 PM EDT Narrative Resulting Agency Comment Spec In Lab Alie Gil MD CHEMISTRY ORDERABLES [facility] [place] [address] * Differential, Automated (02/06/2023 5:10 PM EDT) Neutrophil % 44.2 % [facility] Neutrophil Absolute 2.29 1.70 - 6.10 x10(3)/[facility] Lymph % 47.8 % [facility] Lymphocytes Abs 2.5 0.9 - 3.2 x10(3)/[facility] Monocyte % 6.2 % [facility] Monocyte Abs 0.3 0.3 - 0.9 x10(3)/[facility] Eos % 1.0 % [facility] Eosinophils Abs 0.0 0.0 - 0.4 x10(3)/[facility] Basophil % 0.6 % [facility] Baso Absolute 0.0 0.0 - 0.1 x10(3)/[facility] Immature Gran % 0.20 % [facility] Comment: Immature granulocytes(IG's)percentage and absolute count will include metamyelocytes, myelocytes, and promyelocytes. Blood smears from CBCs yielding IG's will be scanned manually for concordance. If this scan disagrees with the automated IG or if promyelocytes are noted, a manual differential will be performed. Immature Gran Absolute 0.01 0.00 - 0.04 x10(3)/[facility] Blood 02/06/2023 5:10 PM EDT 02/06/2023 5:23 PM EDT Narrative Resulting Agency Comment Spec In Lab Gabriela Hemphill MD HEMATOLOGY ORDERABLE S Performing Organization Address City/[facility]/ZIP Co de Phone Number [facility] [place] [address] * Hemogram (02/06/2023 5:10 PM EDT) White Blood Cell 5.2 4.0 - 9.5 x10(3)/[facility] Red Blood Cell 4.85 4.00 - 5.21 x10(6)/[facility] Hemoglobin 14.7 11.7 - 15.5 g/dL [facility] Hematocrit 43.1 35.7 - 45.8 % [facility] Mean Cell Volume 88.9 82.6 - 94.4 fL [facility] Mean Cell Hemoglobin 30.3 27.1 - 32.0 pg [facility] Mean Cell Hemoglobin Concentration 34.1 31.7 - 35.0 g/dL [facility] Platelet 192 145 - 357 x10(3)/[facility] RDW Standard Deviation 41.1 37.0 - 46.0 fL [facility] RDW coefficient of variation 12.6 11.5 - 14.1 % [facility] Mean Platelet Volume 10.3 7.6 - 12.9 fL [facility] NRBC% auto 0.0 % [facility] NRBC Absolute 0.000 0.000 - 0.000 x10(3)/[facility] Blood 02/06/2023 5:10 PM EDT 02/06/2023 5:23 PM EDT Narrative Resulting Agency Comment Spec In Lab Gabriela Hemphill MD HEMATOLOGY ORDERABLE S Performing Organization Address City/[facility]/ZIP Co de Phone Number [facility] [place] [address] * (ABNORMAL) Heparin (unfractionated) Level (02/06/2023 5:10 PM EDT) UF Heparin 1.66(Crit ical) IU/mL [facility] Comment: Critical Result called by ?? ALDAIR CRITICAL Results read back by: ? Gwendolyn FordIfrah RappLouieFreedomjordyn at 2023-02-06 17:57:56 Heparin (anti-Xa) levels should [...] MD HEMATOLOGY ORDERABLE S Performing Organization Address City/[facility] Co de Phone Number [facility] [place] [address] * (ABNORMAL) pro-Brain Natriuretic Peptide (02/06/2023 5:10 PM EDT) [facility] NT-proBNP 529(H) <=449 pg/mL [facility] Blood 02/06/2023 5:10 PM EDT 02/06/2023 5:23 PM EDT Narrative Resulting Agency Comment Spec In Lab Alie Gil MD CHEMISTRY ORDERABLES Performing Organization Address [facility] Co de Phone Number [facility] [place] [address] * (ABNORMAL) Troponin (02/06/2023 5:10 PM EDT) [facility] Troponin-T, High Sensitivity 89(H) <=14 ng/L [facility] Comment: This patient's troponin T [...] troponin value can be found in the [facility] Test Catalog Troponin - [facility] Test Catalog Reference: Fourth [place] Definition of Myocardial Infarction. Journal of the [place] [employer] 2018;72:2479-7140 Blood 02/06/2023 5:10 PM EDT 02/06/2023 5:23 PM EDT Narrative Resulting Agency Comment Spec In Lab Alie Gil MD CHEMISTRY ORDERABLES [facility] [place] [address] * Triglyceride (02/06/2023 5:10 PM EDT) Triglyceride 62 mg/dL [facility] Comment: Average Risk/Lower Risk: <150 mg/dL Borderline High Risk: 150-199 mg/dL High Risk: 200-499 mg/dL Very High Risk: >te=486 mg/dL Blood 02/06/2023 5:10 PM EDT 02/06/2023 5:23 PM EDT Narrative Resulting Agency Comment Spec In Lab Alie Gil MD CHEMISTRY ORDERABLES [facility] [place] [address] * HDL/Cholesterol Profile (02/06/2023 5:10 PM EDT) Cholesterol, Total 166 mg/dL M [facility] Comment: Lower Risk: <200 mg/dL Average Risk: 200-239 mg/dL Higher Risk: >mf=278 mg/dL HDL Cholesterol 61 mg/dL [facility] Comment: Males: ?? Higher Risk: <40 mg/dL Females: ?? Higher Risk: <50 mg/dL Cholesterol/HDL Ratio 2.7 ratio [facility] Chol/HDL Interpretation See Note [facility] Comment: Lipid management should be guided by a patient? s ASCVD risk, goals and preferences. ACC/AHA Guidelines recommend high intensity statin if clinical ASCVD or LDL greater than or equal to 190 mg/dL. http://IngagePatientl.[email or web address]/NYX-TOC-Iyczebjuq Measure LDL if Total Cholesterol minus HDL Cholesterol is greater than 220 mg/dL. Adults aged 40-75 with LDL 70-189 mg/dL should have their 10 year ASCVD risk estimated with the ACC/AHA ASCVD risk production estimator http://tools.acc.org/RHRAQ-Ifme-Chzjmudgj/ Statin should be discussed if risk greater [...] In Lab Alie Gil MD CHEMISTRY ORDERABLES [facility] [place] [address] * LDL Cholesterol, Direct (02/06/2023 5:10 PM EDT) LDL Cholesterol, Direct 95 mg/dL [facility] Comment: Lowest Risk: <100 mg/dL Lower Risk: 100-129 mg/dL Borderline High Risk: 130-159 mg/dL High Risk: 160-189 mg/dL Very High Risk: >eh=707 mg/dL Blood 02/06/2023 5:10 PM EDT 02/06/2023 5:23 PM EDT Narrative Resulting Agency Comment Spec In Lab Alie Gil MD CHEMISTRY ORDERABLES [facility] [place] [address] * Hemoglobin A1c (02/06/2023 5:10 PM EDT) Hemoglobin A1c 5.6 4.3 - 5.6 % [facility] Comment: Reference Range: 4.3 - [...] Mellitus, Diabetes Care 2013; 36: Suppl. 1, S67-74 Estimated Average Glucose See note mg/dL [facility] Comment: Estimated Average Glucose not [...] into estimated average glucose values. ??Diabetes Care 2008:31(8):1220-0240. Blood 02/06/2023 5:10 PM EDT 02/06/2023 5:23 PM EDT Narrative Resulting Agency Comment Spec In Lab Alie Gil MD CHEMISTRY ORDERABLES Performing Organization Address [facility] Co de Phone Number [facility] [place] [address] * TSH [place] (02/06/2023 5:10 PM EDT) Thyroid Stimulating Hormone 1.95 0.27 - 4.20 mcIU/mL [facility] Comment: Reference Interval (mcIU/mL): Females: ??First Trimester: 0.23-3.88 ??Second Trimester: 0.22-3.90 ??Third Trimester: 0.44-4.66 Blood 02/06/2023 5:10 PM EDT 02/06/2023 5:23 PM EDT Narrative Resulting Agency Comment Spec In Lab Alie Gil MD CHEMISTRY ORDERABLES Performing Organization Address [facility] Co de Phone Number [facility] [place] [address] * Lipid Panel (Reflex Direct LDL) (02/06/2023 5:10 PM EDT) Cholesterol, Total 166 mg/dL [facility] Comment: Lower Risk: <200 mg/dL Average Risk: 200-239 mg/dL Higher Risk: >qi=393 mg/dL Triglyceride 62 mg/dL [facility] Comment: Average Risk/Lower Risk: <150 mg/dL Borderline High Risk: 150-199 mg/dL High Risk: 200-499 mg/dL Very High Risk: >jk=056 mg/dL HDL Cholesterol 61 mg/dL [facility] Comment: Males: ?? Higher Risk: <40 mg/dL Females: ?? Higher Risk: <50 mg/dL LDL Cholesterol 93 mg/dL [facility] Comment: Lowest Risk: <100 mg/dL Lower Risk: 100-129 mg/dL Borderline High Risk: 130-159 mg/dL High Risk: 160-189 mg/dL Very High Risk: >qx=813 mg/dL Cholesterol/HDL Ratio 2.7 ratio [facility] Lipid Interpretation See Note [facility] Comment: Lipid management should be guided by a patient? s ASCVD risk, goals and preferences. ACC/AHA Guidelines recommend high intensity statin if clinical ASCVD or LDL greater than or equal to 190 mg/dL. http://Grafoid.com/AXD-BCM-Pivmstglr Adults aged 40-75 with LDL 70-189 mg/dL should have their 10 year ASCVD risk estimated with the ACC/AHA ASCVD risk production estimator http://tools.acc.org/DWPVV-Xzjz-Osmmbkngl/ Statin should be discussed if risk greater [...] In Lab Alie Gil MD CHEMISTRY ORDERABLES [facility] [place] [address] * (ABNORMAL) APTT (02/06/2023 5:10 PM EDT) Partial Thromboplastin Time >160(Crit ical) 25 - 37 sec [facility] Comment: Critical Result called by ?Jayshree QUINTEROS CRITICAL Results read back by: ? Gwendolyn Alba at 2023-02-06 17:57:56 The PTT is NOT appropriate for heparin monitoring. Use the Anti-Xa level for heparin monitoring (HEP UFH) or LMWH monitoring (HEP LMW). A PTT less than 37 seconds generally indicates adequate hemostasis. Blood 02/06/2023 5:10 PM EDT 02/06/2023 5:22 PM EDT Narrative Resulting Agency Comment Spec In Lab Alie Gil MD HEMATOLOGY ORDERABLE S Performing Organization Address [facility] Co de Phone Number [facility] [place] [address] * (ABNORMAL) Prothrombin Time (02/06/2023 5:10 PM EDT) Prothrombin Time 17.0(H) 9.4 - 12.5 sec [facility] International Normalization Ratio 1.5 [facility] Comment: An INR <2.0 indicates [...] MD HEMATOLOGY ORDERABLE S Performing Organization Address [facility] Co de Phone Number [facility] [place] [address] * Calcium (02/06/2023 5:10 PM EDT) Calcium 9.6 8.5 - 10.5 mg/dL [facility] Blood 02/06/2023 5:10 PM EDT 02/06/2023 5:23 PM EDT Narrative Resulting Agency Comment Spec In Lab Alie Gil MD CHEMISTRY ORDERABLES Performing Organization Address [facility] Co de Phone Number [facility] [place] [address] * Magnesium (02/06/2023 5:10 PM EDT) Magnesium 0.87 0.69 - 1.07 mmol/L [facility] Blood 02/06/2023 5:10 PM EDT 02/06/2023 5:23 PM EDT Narrative Resulting Agency Comment Spec In Lab Alie Gil MD CHEMISTRY ORDERABLES [facility] [place] [address] * (ABNORMAL) Basic Metabolic Panel (non-fasting) (02/06/2023 5:10 PM EDT) Glucose 100 65 - 199 mg/dL [facility] Comment:Diabetes: >=200 mg/d L plus symptoms Blood Urea Nitrogen 15 8 - 18 mg/dL [facility] Creatinine 0.68(L) 0.70 - 1.20 mg/dL [facility] Sodium 136 135 - 145 mmol/L [facility] Potassium 4.2 3.5 - 5.0 mmol/L [facility] Comment: Please note: ??Patients with WBC >100,000 may have falsely elevated Potassium levels. ??For accurate Potassium quantification in these patients send serum separator tube (gold top) for subsequent determinations. ??Contact the Clinical Chemistry Laboratory if there are any questions. Chloride 101 98 - 107 mmol/L [facility] Carbon Dioxide 24 22 - 31 mmol/L [facility] Anion Gap 11 5 - 15 mmol/L [facility] Calcium 9.6 8.5 - 10.5 mg/dL [facility] Est Glomerular Filtration Rate 90 >=60 mL/min/1. 73 m?? [facility] Comment: This patient's estimated GFR [...] In Lab Alie Gil MD CHEMISTRY ORDERABLES [facility] [place] [address] * EKG 12 Lead (02/06/2023 4:54 PM EDT) Ventricular rate 59 BPM MUSE SYSTEM P-R Interval 576 ms MUSE SYSTEM QRS Duration 82 ms MUSE SYSTEM Q-T Interval 494 ms MUSE SYSTEM QTC Calculated (Bezet) 489 ms MUSE SYSTEM Calculated R [place] 2 degrees MUSE SYSTEM Calculated T [place] 5 degrees MUSE SYSTEM INTERPRETATION Sinus rhythm with 1st degree A-V block Septal infarct (cited on or before 22-JUL-2021) Abnormal ECG When compared with ECG of 22-JUL-2021 10:22, CT interval has increased T wave inversion less evident in Inferior leads QT has lengthened Confirmed by MD Palomo Danette ([id number]) on 02/07/2023 4:09:13 PM MUSE SYSTEM 02/06/2023 4:54 PM EDT 02/07/2023 4:09 PM EDT Alie Gil MD ECG ORDERABLES MUSE SYSTEM documented in this encounter Visit Diagnoses Not on filedocumented in this encounter Admitting Diagnoses Diagnosis NSTEMI [...] Given 02/07/2023 8:57 AM EDT 81 mg fentaNYL (pf) (50 mcg/mL) multi-dose injection PRN, Starting on Tue02/07/23 at 0928, Until Tue02/07/23 at 1003, Intra-Operative (Intra-Procedure), Routine Given 02/07/2023 9:28 AM EDT 25 mcg heparin (porcine) (1,000 units/mL) injection PRN, Starting on Tue02/07/23 at 0936, Until Tue02/07/23 at 1003, Intra-Operative (Intra-Procedure), Routine Given 02/07/2023 9:36 AM EDT 3,000 Units iohexoL (Omnipaque) (350 mg/mL) solution PRN, Starting on Tue02/07/23 at 0954, Until Tue02/07/23 at 1003, Intra-Operative (Intra-Procedure), Routine Given 02/07/2023 9:54 AM EDT 59 mLs levothyroxine (Synthroid) tablet 68.5 mcg 68.5 mcg, Oral, EVERY MORNING, First dose (after last modification) on Tue02/07/23 at 0600, Until Discontinued, Routine Given 02/07/2023 6:54 AM EDT 68.5 mcg midazolam (pf) (Versed) (1 mg/mL) multi-dose injection PRN, Starting on Tue02/07/23 at 0928, Until Tue02/07/23 at 1003, Intra-Operative (Intra-Procedure), Routine Given 02/07/2023 9:28 AM EDT 1 mg nitroGLYcerin 100 mcg/mL intracoronary dilution PRN, Starting on Tue02/07/23 at 0931, Until Tue02/07/23 at 1003, Intra-Operative (Intra-Procedure), Routine Given 02/07/2023 9:31 AM EDT 150 mcg rosuvastatin (Crestor) tablet 40 mg 40 [...] Given 02/06/2023 9:00 PM EDT 5 mLs verapamiL (Isoptin) (2.5 mg/mL) injection PRN, Starting on Tue02/07/23 at 0931, Until Tue02/07/23 at 1003, Administer over 2 Minutes, Intra-Operative (Intra-Procedure) Given 02/07/2023 9:31 AM EDT 2 .5 mg documented in this encounter Active and Recently Administered Medications Times are shown in EDT. Scheduled Medication Order 02/05/2023 02/06/2023 02/07/2023 aspirin chewable tablet 81 mg 81 mg, Oral, DAILY, First dose on Tue02/07/23 at 0900, Until Discontinued, Routine 0857 (Given - Provid er: Gwendolyn Alba RN)0920 ([facility] Hold - Provider: Admin Adt - Reason: Transfer to a Procedural area)1053 ([facility] Unhold - Provider: Admin Adt) clopidogreL (Plavix) tablet 600 mg (COMPLETED)(Linked Group 1) 600 mg, Oral, ONCE, 1 dose, On 02/06/23 at 1800, Routine 1801 (Given - Provider: Gwendolyn Alba RN) clopidogreL (Plavix) tablet 75 mg (CANCELED)(Linked Group 1) 75 mg, Oral, DAILY, First dose on Tue02/07/23 at 0900, Until Discontinued, Routine 0857 (Given - Provid er: Gwendolyn Alba RN)0920 ([facility] Hold - Provider: Admin Adt - Reason: Transfer to a Procedural area)1053 ([facility] Unhold - Provider: Admin Adt) levothyroxine (Synthroid) tablet 68.5 mcg 68.5 mcg, Oral, EVERY MORNING, First dose (after last modification) on Tue02/07/23 at 0600, Until Discontinued, Routine 0654 (Given - Provid er: Sean Lindo RN)0920 ([facility] Hold - Provider: Admin Adt - Reason: Transfer to a Procedural area)1053 ([facility] Unhold - Provider: Admin Adt) rosuvastatin (Crestor) tablet 40 mg 40 mg, Oral, EVERY EVENING, First dose on Tue02/06/23 at 1700, Until Discontinued, Routine 1657 (Given - Provider: Gwendolyn Alba RN) 0920 ([facility] Hold - Provider: Admin Adt - Reason: Transfer to a Procedural area)1053 ([facility] Unhold - Provider: Admin Adt)1857 (Given - Provider: Gwendolyn Alba RN) sodium chloride 0.9 % (flush) (BD PosiFlush Normal Saline 0.9) flush 5 mL 5 mL, Intravenous, 2 TIMES DAILY, First dose on 02/06/23 at 2100, Until Discontinued, Routine 2100 (Given - Provider: Sean Lindo RN) 0900 (Not Given - Provider: Gwendolyn Alba RN - Reason: See comment - [...] Lindo RN) 0900 (Not Given - Provider: Gwendolyn Alba RN - Reason: See comment - [...] Protocol, Routine 1556 (New Bag - Provider: Gwendolyn Alba RN)1758 (Paused - Provider: Gwendolyn Alba RN)1800 (Restarted - Provider: Gwendolyn Alba RN)2000 (Rate/Dose Verify - Provider: Sean Lindo RN) 0000 (Rate/Dose Verify - Provider: Sean Lindo RN)0027 (Rate/Dose Change - Provider: Sean Lindo RN - Comment: ufh .78)0400 (Rate/Dose Verify - Provider: Sean Lindo RN)0916 (Stopped - Provider: Gwendolyn Alba RN)0920 ([facility] Hold - Provider: Admin Adt - Reason: Transfer to a Procedural area)1053 ([facility] Unhold - Provider: Admin Adt) sodium chloride 0.9% infusion 100 mL/hr, Intravenous, CONTINUOUS, Starting on Tue02/07/23 at 1045, Until Tue02/07/23 at 1844, Recovery (Recovery-Hospital Unit) 1045 (New Bag - Provider: Gwendolyn Alba RN) PRN Medication Order 02/05/2023 02/06/2023 02/07/2023 fentaNYL (pf) (50 mcg/mL) multi-dose injection (CANCELED) PRN, Starting on Tue02/07/23 at 0928, Until Tue02/07/23 at 1003, Intra-Operative (Intra-Procedure), Routine 927 (Given - Provid er: Ever White RN) heparin (porcine) (1,000 units/mL) injection (CANCELED) PRN, Starting on Tue02/07/23 at 0936, Until Tue02/07/23 at 1003, Intra-Operative (Intra-Procedure), Routine 935 (Given - Provid er: Scooter Arevalo RN) iohexoL (Omnipaque) (350 mg/mL) solution (CANCELED) PRN, Starting on Tue02/07/23 at 0954, Until Tue02/07/23 at 1003, Intra-Operative (Intra-Procedure), Routine 953 (Given - Provid er: MARGARITA Lake) lidocaine (Xylocaine) 1% (10 mg/mL) injection 3 mg 3 mg (0.3 mL), Subcutaneous, ONCE PRN, 1 dose, Starting on Tue02/06/23 at 1550, Until Tue02/07/23 at 2257, for discomfort with PIV insertion, Routine 919 ([facility] Hold - Pro vider: Admin Adt - Reason: Transfer to a Procedural area)1053 ([facility] Unhold - Provider: Admin Adt) midazolam (pf) [...] the last 24 to 72 hours., Routine 09 ([facility] Hold - Pro vider: Admin Adt - Reason: Transfer to a Procedural area)1053 ([facility] Unhold - Provider: Admin Adt) nitroGLYcerin 100 [...] link provided on this medication record., Routine 09 ([facility] Hold - Pro vider: Admin Adt - Reason: Transfer to a Procedural area)1053 ([facility] Unhold - Provider: Admin Adt) sodium chloride 0.9 % (flush) (BD PosiFlush Normal Saline 0.9) flush 5-20 mL 5-20 mL, Intravenous, EVERY 1 MIN PRN, Starting on Tue02/06/23 at 1550, Until Tue02/07/23 at 2257, flush, Flush pertains to all indwelling lines. Flush per protocol found in the job aid using the link provided on this medication record., Routine 09 ([facility] Hold - Pro vider: Admin Adt - Reason: Transfer to a Procedural area)1053 ([facility] Unhold - Provider: Admin Adt) verapamiL (Isoptin) [...] Routine documented in this encounter Care Teams Benzene Still Utility Operator Relationship Specialty Start Date End Date Vicenta Ndiaye APRN [address] [place] [address] PCP - General Family Medicine 03/11/21 documented as of this encounter
--- OUTSIDE RECORDS SUMMARY | 2024-05-04 01:41 | XMS_ITS | Encounter Summary ---
[place] [address] Care Team Providers Care Hide Washer Name Role Phone Vicenta Ndiaye APRN Primary Care Provider [phone] Encounter Details Date Type Department Care Team (Late st Contact Info) Description 07/20/2021 Orders Only Cardiology at [address] [phone] Eloise Jin, RN Social History Tobacco Use Types Packs/Day Years [...] AM EST Hospital Encounter [place] [phone] Arrived documented as of this encounter Visit Diagnoses Not on filedocumented in this encounter Care Teams Hide Washer Relationship Specialty Start Date End Date Vicenta Ndiaye APRN [address] [place] [address] PCP - General Family Medicine 03/11/21 documented as of this encounter
--- OUTSIDE RECORDS SUMMARY | 2024-05-04 01:41 | XMS_ITS | Encounter Summary ---
[place] [address] Care Team Providers Care Supervisor Park Workers Name Role Phone Vicenta Ndiaye APRN Primary Care Provider [phone] Reason for Visit * Reason Onset Date Comments Pre Procedure Call 04/01/2023 Encounter Details Date Type Department Care Team (Late st Contact Info) Description 04/01/2023 Telephone Cardiology at [address] [phone] Autumn Akbar RN Pre Procedure Call Social History Tobacco Use Types Packs/Day Years [...] on file documented as of this encounter Miscellaneous Notes * Telephone Encounter - Autumn Akbar RN - 04/01/2023 8:27 AM EDTSummary: Pre Procedure Call: Pacemaker Implant EP MANAGER CLINICAL APPLICATIONS COORDINATION CHECKLIST Patient Name: Elena Dave Patient Performing Leather Goods I Assembler: Robin Alvarado Referring Provider: Meagan Gonzalez Date of Procedure: 04/08/23 Arrival Time/ Case Time: 1:00 pm / 2:00 pm Check In Location: Education Department Chair Desk 4W Date Patient was Called: 04/05 Procedure: Pacemaker Implant Type: DC PCM Orders: Yes Lab Orders: Yes Anesthesia: MOD Discharge Plan/Disposition: OVERNIGHT/SSU Med Instructions: Anticoag Type: Xarelto (rivaroxaban) Anticoag Instructions: Hold Xarelto for 2 doses prior to procedure (takes in PM - no dose 04/06 or 04/07) Contrast Allergy: N/A DM: N/A Coming from an assisted living facility?: No Any recent S/S of infection (fevers, on oral ABX)?: No Other Instructions: Clear liquids (water, apple juice, garfield reyna) OK up until 2 hrs prior to procedure, nothing to eatafter midnight on day of procedure.Same Day will call 04/07. If applicable will bring CPAP from home. Will be staying overnight , understands that they will need day haul or farm charter bus driver on day of discharge Notified pt that Abraham catheter may be placed on day of procedure depending on type & duration of case. documented in this encounter Plan of Treatment Upcoming Encounters Date Type Department Care Team (Late st Contact Info) Description 07/13/2024 10:[address] [facility] Hospital Encounter [place] [phone] Arrived documented as of this encounter Visit Diagnoses Not on filedocumented in this encounter Care Teams Supervisor Park Workers Relationship Specialty Start Date End Date Vicenta Ndiaye APRN [address] [place] [address] PCP - General Family Medicine 03/11/21 documented as of this encounter
--- OUTSIDE RECORDS SUMMARY | 2024-05-04 01:41 | XMS_ITS | Encounter Summary ---
[place] [address] Care Team Providers Care Advertising Associate Name Role Phone Vicenta Ndiaye ASIM Primary Care Provider [phone] Encounter Details Date Type Department Care Team (Late st Contact Info) Description 02/06/2023 10:00 AM EDT Ancillary Procedure [place] [address] Kami Palomo MD [facility] [address] Social History Tobacco Use Types Packs/Day Years [...] AM EST Hospital Encounter [place] [address] Arrived documented as of this encounter Procedures Procedure Name Priority Date/Time Associated Diagnosis Comments FILM LIBRARY STORAGE ONLY DX CHEST Routine 02/06/2023 9:59 AM EDT documented in this encounter Results * Film Library- Storage Only DX Chest (02/06/2023 9:59 AM EDT) Narrative RAD - 02/06/2023 9:59 AM EDT This exam is auto-finalizing. It's purpose is for storage only. Kami Palomo MD IMG FILM LIBRARY ORD ERABLES [place], [place] documented in this encounter Visit Diagnoses Not on filedocumented in this encounter Care Teams Advertising Associate Relationship Specialty Start Date End Date Vicenta Ndiaye, ASIM [address] [place] [address] PCP - General Family Medicine 03/11/21 documented as of this encounter
--- OUTSIDE RECORDS SUMMARY | 2024-05-04 01:41 | XMS_ITS | Encounter Summary ---
[place] [address] Care Team Providers Care Manager Special Events Name Role Phone Senthil Vicenta ASIM Primary Care Provider [phone] Encounter Details Date Type Department Care Team (Late st Contact Info) Description 02/06/2023 Telephone Cardiology at [address] [phone] Anna Marie Tarango MD [facility] [place] [address] Social History Tobacco Use Types Packs/Day Years Used Date Smoking Tobacco: Former Smokeless Tobacco: Never Comments:college student for a few months Sex and Gender Information Value Date Recorded Sex Assigned at Not on file Gender Identity Not on file Sexual Orientation Not on file documented as of this encounter Miscellaneous Notes * Telephone Encounter - Anna Marie Tarango MD - 02/06/2023 10:50 AM EDT Images from the original note were not included. 02/06/2023 Elena Cari Jolie Initial Contact Date: 02/06/2023 Referring Provider: Dr. Gabriel Patient Location: [facility] Past Medical History: Atrial fibrillation s/p cardioversion in 2020 HTN Hypothyroidism Presenting Symptoms per OSH: Elena presented to [facility] this AM with dyspnea at rest and chest pain that was left sided with radiation to the right. Symptoms resolved then another episode of chest pain along with dyspnea occurred.Upon arrival she had 1/10 residual chest pain that resolved with nitro paste. Vitals: BP 158/67, HR57 bpm, RR 18, Sat 97% on room air. On telemetry patient has been HR 40-60s and asymptomatic from abradycardia standpoint. Per ED, patient was taken off of DOAC about 4 months ago by PCP due to lackof Afib recurrence. Patient had palpitations in recent days or weeks and suspected pAF recurrence and started taking xarelto again. Pertinent Diagnostic Findings: HS troponin 86 (ULN 60) CBC and BMP unremarkable EKG today @ 0900: sinus bradycardia, 1st degree AV block, no acute ischemic changes Second EKG and repeat troponin in process OSH Interventions: Nitro paste Plan: I have accepted patient for NSTEMI evaluation and management. I recommended starting heparin gtt, ASA 325 mg and high intensity statin. Will also monitor her on telemetry and repaeat EKGs to sort outsinus bradycardia with 1st degree AVB vs type 2 AV block. Above recommendations were based on my discussion with Dr. Gabriel; I have not personally interviewedor examined this patient. Advised to call the transfer center back with any changes in the patient condition. I have not personally reviewed EKGs. Anna Marie Tarango MD Manufacturing Quality Engineer Pager [phone] documented in this encounter Plan of Treatment Upcoming Encounters Date Type Department Care Team (Late st Contact Info) Description 07/13/2024 10:00 AM [facility] Hospital Encounter Non-Invasive [place] [phone] Arrived documented as of this encounter Visit Diagnoses Not on filedocumented in this encounter Care Teams Manager Special Events Relationship Specialty Start Date End Date Vicenta Ndiaye APRN [address] [place] [address] PCP - General Family Medicine 03/11/21 documented as of this encounter
--- OUTSIDE RECORDS SUMMARY | 2024-05-04 01:41 | XMS_ITS | Encounter Summary ---
[place] [address] Care Team Providers Care Field Marketing Associate Name Role Phone Vicenta Ndiaye APRN Primary Care Provider [phone] Reason for Referral * Diagnostic Test (Routine) - Closed Specialty Diagnoses / Procedures Referred By Contac t Referred To Contact Cardiology Diagnoses Bradycardia Procedures Ziopatch 48 Hrs-15 Days Rochelle Dooley MD [facility] DR [address] [place] [address] [facility] [place] [address] Referral ID Status Reason Start Date Expiration Date V isits Requested Visits Authorized [id number] Closed Specialty Service Requested 02/07/2023 02/07/2024 1 1 Reason for Visit * Diagnostic Test (Routine) - Closed Specialty Diagnoses / Procedures Referred By Contac t Referred To Contact Cardiology Diagnoses Bradycardia Procedures Ziopatch 48 Hrs-15 Days Rochelle Dooley MD [facility] [address] [facility]IN[facility] [place] [address] [facility] [place] [address] Referral ID Status Reason Start Date Expiration Date V isits Requested Visits Authorized [id number] Closed Specialty Service Requested 02/07/2023 02/07/2024 1 1 Encounter Details Date Type Department Care Team (Latest Contact Info) Description 02/07/2023 4:00 PM EDT - 02/07/2023 11:59 PM EDT Hospital Encounter Non-Invasive Cardiology Lab [facility] [place] [address] Ilia Gil MD [facility] [place] [address] Bradycardia Discharge Disposition: Home Social History Tobacco Use [...] daily. 04/07/2023 documented as of this encounter Plan of Treatment Upcoming Encounters Date Type Department Care Team (Late st Contact Info) Description 07/13/2024 10:00 AM EST Hospital Encounter Non-[place] [phone] Arrived documented as of this encounter Procedures Procedure Name Priority Date/Time Associated Diagnosis Comments ZIOPATCH 48 HRS-15 DAYS Routine 02/08/2023 7:05 AM EDT Bradycardia documented in this encounter Results * Ziopatch 48 Hrs-15 Days (02/08/2023 7:05 AM EDT) Anatomical Region Laterality Modality Other Narrative 03/02/2023 2:51 PM EDT Images from the original result were not included. [facility] ? 'Zio Patch' Ambulatory Cardiac Event [...] were present. Isolated VEs were occasional (1.1%, [id number]), VE Couplets were rare (<1.0%, 55), and [...] can be found in the linked PDF. Ilia Gil MD CARDIAC SERVICES ORD ERABLES documented in this encounter Visit Diagnoses Diagnosis Bradycardia Other specified cardiac dysrhythmias documented in this encounter Care Teams Field Marketing Associate Relationship Specialty Start Date End Date Vicenta Ndiaye APRN [address] [place] [address] PCP - General Family Medicine 03/11/21 documented as of this encounter
--- OUTSIDE RECORDS SUMMARY | 2024-05-04 01:41 | XMS_ITS | Encounter Summary ---
Author Organization [facility]ly [facility] [place] [address] Care Team Providers Care Cut Pressman Name Role Phone Senthil Vicenta ASIM Primary Care Provider [phone] Encounter Details Date Type Department Care Team (Late st Contact Info) Description 07/22/2021 10:20 AM EST Office Visit Cardiology at [address] [phone] Robin Alvarado MD [facility] [place] [address] Persistent atrial fibrillation; Hypothyroidism, unspecified type Social History Tobacco Use Types Packs/Day Years Used Date Smoking Tobacco: Former Smokeless Tobacco: Never Comments:college student for a few months Sex and Gender Information Value Date Recorded Sex Assigned at Not on file Gender Identity Not on file Sexual Orientation Not on file documented as of this encounter Last Filed Vital Signs Vital Sign Reading Time Taken Comments Blood Pressure 140/81 07/22/2021 10:16 AM EST Pulse 57 07/22/2021 10:16 AM EST Temperature - - Respiratory Rate - - Oxygen Saturation 98% 07/22/2021 10:16 AM EST Inhaled Oxygen Concentration - - Weight 84.6 kg (186 lb 9.6 oz) 07/22/2021 10:16 AM EST Height 161.3 cm (5' 3.5) 07/22/2021 10:16 AM ES T reported Body Mass Index 32.54 07/22/2021 10:16 AM EST documented in this encounter Progress Notes * Robin Alvarado MD - 07/22/2021 10:20 AM EST Images from the original note were not included. Section of Cardiology/Cardiac Electrophysiology Clinical Cardiac Electrophysiology Follow Up Patient ID Elena Dave [id number] Elena Dave is following up in EP clinic C/c: AF, bradycardia History Ms. Dave is a 75 year old woman with a history of AF whom I met with today for follow uppost cardioversion. She was cardioverted from AF to sinus 07/16. Sinus bradycardia and AV WEnckebach was seen on post procedure EKG. She has been feeling better since her cardioversion. No lightheadedness, no syncope, improved energy. She is able to do what she wants to do. Continues on rivaroxabanthat she takes with evening meal. No angina, orthopnea, PND, significant leg swelling. She wonders if her thyroid function should be checked and if this could be affecting her energy and/or her atrial fibrillation. Last thyroid check, she states, was August prior to starting levothyroxine, which wa s halved since then (over the summer). Problem List Patient Active Problem List Diagnosis [...] Socioeconomic History ??? Marital status: Spouse name: None ??? Number of children: None ??? Years of education: None ??? Highest education level: None Occupational History ??? None Tobacco Use ??? Smoking status: Former Smoker ??? Smokeless tobacco: Never Used ??? Tobacco comment: college student for a few months Vaping Use ??? Vaping Use: Never used Substance and Sexual Activity ??? Alcohol use: None ??? Drug use: None ??? Sexual activity: None Other Topics Concern ??? None Social History Narrative ??? None Social Determinants of Health Financial Resource Strain: Not on file Food Insecurity: Not on file Transportation Needs: Not on file Physical Activity: Not on file Housing Stability: Not on file Family History No family history on file. Exam Patient Vitals for the past 24 hrs: Pulse BP SpO2 07/22/21 1016 57 140/81 98 % @EXAM@ GEN: patient appears well and in no apparent distress, alert and oriented ENT: extraocular movements with full range of motion NECK: normal JVP CHEST: unlabored breathing. Normal respiratory rate. Symmetric chest movement ABDOMEN: nondistended, EXTREMITIES: no edema NEUROLOGICAL: alert and oriented to person, place and time. CN 2-12 grossly intact. I have personally reviewed the ECG: sinus bradycardia with prolonged TN interval and PAC and occasional junctional escape rhythm. QRS 80 ms. QTc 398 ms. Septal infarct AU I have personally reviewed all pertinent labs, cardiac rhythm monitors and imaging Impression/Plan Ms. Dave is overall doing well. Feeling better with more energy post cardioversion. We again discussed AF in detail including medication (dofetilide) and ablation. We also discussed that prior to starting an antiarrhythmic medication, I recommend implanting a pacemaker as the meds eitherlower the sinus rate, may worsen AV conduction or may see increased risk for proarrhythmia with bradycardia (dofetilide). One way to get around pacemaker is ablation, though I also reiterated to her that her AV conduction abnormalities and sinus bradycardia is likely to worsen over time, necessitating a pacemaker eventually. We also discussed lifestyle factors affecting AF including alcohol intake (minimal), exercise/weight loss and obstructive sleep apnea (tried getting sleep study but wasn't covered by insurance--she will consider trying again). For now, Ms. Dave prefers to consider the above options if AF recurs, and to enjoy feeling better in sinus rhythm. Will obtain TSH cascade today and will send off to Vicenta Ndiaye whom Elena will see next month. Follow up with me is in late August Robin Alvarado MD 20 total minutes were spent on this encounter for note entry, review of medical record, patient counseling. Cc: Vicenta Ndiaye APRN documented in this encounter Plan of Treatment Upcoming Encounters Date Type Department Care Team (Late st Contact Info) Description 07/13/2024 10:00 AM EST Hospital Encounter Non[place] [address] Arrived Scheduled Orders Name Type Priority Associated Diagnoses Orde r Schedule EKG 12 Lead ECG Routine Persistent atrial fibrillation Expected: 07/22/2021, Expires: 01/21/2022 documented as of this encounter Procedures Procedure Name Priority Date/Time Associated Diagnosis Comments HC VENIPUNCTURE Routine 07/22/2021 10:59 AM EST Persistent atrial fibrillation Hypothyroidism, unspecified type EKG 12-LEAD Routine 07/22/2021 10:22 AM EST documented in this encounter Results * TSH [place] (07/22/2021 10:59 AM EST) Thyroid Stimulating Hormone 2.20 0.27 - 4.20 mcIU/mL [facility] Comment: Reference Interval (mcIU/mL): Females: ??First Trimester: 0.23-3.88 ??Second Trimester: 0.22-3.90 ??Third Trimester: 0.44-4.66 Blood 07/22/2021 10:5 9 AM EST 07/22/2021 11:10 AM EST Narrative Resulting Agency Comment Spec In Lab Robin Alvarado MD CHEMISTRY ORDERABLES [facility] [place] [address] * EKG 12 Lead (07/22/2021 10:22 AM EST) Ventricular rate 58 BPM MUSE SYSTEM Atrial Rate 58 BPM MUSE SYSTEM P-R Interval 376 ms MUSE SYSTEM QRS Duration 80 ms MUSE SYSTEM Q-T Interval 406 ms MUSE SYSTEM QTC Calculated (Bezet) 398 ms MUSE SYSTEM Calculated P Preston 47 degrees MUSE SYSTEM Calculated R Preston 7 degrees MUSE SYSTEM Calculated T Preston -50 degrees MUSE SYSTEM INTERPRETATION Sinus bradycardia with marked sinus arrhythmia with 1st degree A-V block Low voltage QRS Septal infarct (cited on or before 22-JUL-2021) T wave abnormality, consider inferior ischemia Abnormal ECG When compared with ECG of 16-JUL-2021 12:41, Sinus rhythm is no longer with 2nd degree A-V block (Mobitz I) Questionable change in initial forces of Septal leads Nonspecific T wave abnormality no longer evident in Anterior leads Confirmed by MD Jen, Aftab ([id number]) on 07/22/2021 12:39:38 PM MUSE SYSTEM 07/22/2021 10:2 2 AM EST 07/22/2021 12:39 PM EST Unknown ECG ORDERABLES MUSE SYSTEM documented in this encounter Visit Diagnoses Diagnosis Persistent atrial fibrillation Atrial fibrillation Hypothyroidism, unspecified type documented in this encounter Care Teams Cut Pressman Relationship Specialty Start Date End Date Vicenta Ndiaye APRN [address] [place] [address] PCP - General Family Medicine 03/11/21 documented as of this encounter
--- OUTSIDE RECORDS SUMMARY | 2024-05-04 01:41 | XMS_ITS | Encounter Summary ---
Author Organization [facility] [place] [address] Care Team Providers Care Facilities Technician Name Role Phone Senthil Vicenta ASIM Primary Care Provider [phone] Encounter Details Date Type Department Care Team (Late st Contact Info) Description 04/07/2023 Orders Only Cardiology at [address] [phone] Robin Alvarado MD [facility] [place] [address] Social History Tobacco Use Types Packs/Day Years Used Date Smoking Tobacco: Former Passive Smoke Exposure: Past Smokeless Tobacco: Never Comments:college student for a few months Alcohol Use Standard Drinks/Week Comments Yes 3 (1 standard drink = 0.6 oz pur e alcohol) [facility] Inpatient Questions Answer Date Recorded Does Anyone [...] EST Hospital Encounter Non-Invasive [place] [address] Arrived documented as of this encounter Visit Diagnoses Not on filedocumented in this encounter Care Teams Facilities Technician Relationship Specialty Start Date End Date Vicenta Ndiaye APRN [address] [place] [address] PCP - General Family Medicine 03/11/21 documented as of this encounter
--- OUTSIDE RECORDS SUMMARY | 2024-05-04 01:42 | XMS_ITS | Encounter Summary ---
[place] [address] Care Team Providers Care Lining Machine Operator Name Role Phone TawannameganDaniella Andrez DAILEY Primary Care Provider Encounter Details Date Type Department Care Team (Late st Contact Info) Description 07/23/2008 Abstract Radiology and Cardiology Results [address] [place] [phone] Nlh Conversion, Results Provider, Social History Tobacco Use Types Packs/Day Years [...] AM EST Hospital Encounter [place] [phone] Arrived documented as of this encounter Procedures Procedure Name Priority Date/Time Associated Diagnosis Comments HEPATITIS C RNA, QUANTITATIVE, PCR Routine 07/23/2008 8:06 AM EST documented in this encounter Results * (ABNORMAL) Hepatitis C RNA, quantitative, PCR (07/23/2008 8:06 AM EST) Hepatitis C RNA-PCR < 5(External Lab) <5 IU/mL [facility] CONVERSION Hepatitis C RNA-PCR < 10(Externa l Lab) <10 copies/mL [facility] CONVERSION 07/23/2008 8:06 AM EST Results Provider Nlh Conversion MD NEFTALY FLOWERS ORDERABLES NL CONVERSION documented in this encounter Visit Diagnoses Not on filedocumented in this encounter Care Teams Lining Machine Operator Relationship Specialty Start Date End Date Daniella Denny, PHYSICAL SCIENCES INSTRUCTOR [address] [facility] [place] [address] PCP - General 07/21/10 03/10/21 documented as of this encounter
--- OUTSIDE RECORDS SUMMARY | 2024-05-04 01:42 | XMS_ITS | Encounter Summary ---
[place] [address] Care Team Providers Care Insulation Blower Name Role Phone Barrydinh Daniella Andrez DAILEY Primary Care Provider Encounter Details Date Type Department Care Team (Late st Contact Info) Description 10/11/2013 Abstract Radiology and Cardiology Results [address] [place] [phone] [facility] Conversion, Results Provider, Social History Tobacco Use [...] AM EST Hospital Encounter Non[place] [phone] Arrived documented as of this encounter Procedures Procedure Name Priority Date/Time Associated Diagnosis Comments CRP, CARDIAC RISK (HS CRP) Routine 10/11/2013 7:48 AM EST LIPID PANEL (REFLEX DIRECT LDL) Routine 10/11/2013 7:48 AM EST COMPREHENSIVE METABOLIC PANEL Routine 10/11/2013 7:48 AM EST documented in this encounter Results * (ABNORMAL) Lipid Panel (Reflex Direct LDL) (10/11/2013 7:48 AM EST) Cholesterol, Total 229(ExtH) <=199 mg/dL [facility] CONVERSION Triglyceride 152(ExtH) <=149 mg/dL [facility] CONVERSION LDL Cholesterol 142.6(Ext H) <=99.0 mg/dL [facility] CONVERSION HDL Cholesterol 56(Panel Raiser Operator al Lab) 40 - 60 mg/dL [facility] CONVERSION 10/11/2013 7:48 AM EST Results Provider Nlh Conversion MD ARIANA CALIX ORDERABLES NLH CONVERSION * (ABNORMAL) CRP, cardiac risk (HS CRP) (10/11/2013 7:48 AM EST) C-Reactive Protein High Sensitivity 1.6(Exter nal Lab) 0.0 - 3.0 mg/L NL[facility] CONVERSION 10/11/2013 7:48 AM EST Results Provider Nlh Conversion CHEMMathew CALIX ORDERABLES Performing Organization Address [facility] Co de Phone Number NLH CONVERSION * (ABNORMAL) Comprehensive metabolic panel (non-fasting) (10/11/2013 7:48 AM EST) Sodium 142(Exter nal Lab) 137 - 145 mmol/L [facility] CONVERSION Chloride 104(Exter nal Lab) 98 - 107 mmol/L NL[facility] CONVERSION Glucose 93(Panel Raiser Operator al Lab) 65 - 99 mg/dL [facility] CONVERSION Alkaline Phosphatase 68(Panel Raiser Operator al Lab) 38 - 126 U/L [facility] CONVERSION eGFR 60(Panel Raiser Operator al Lab) >=60 mL/min/1. 73m2 [facility] CONVERSION Est Glomerular Filtration Rate 60(Panel Raiser Operator al Lab) >=60 mL/min/1. 73m2 [facility] CONVERSION Alanine Aminotransferase 42(Panel Raiser Operator al Lab) 13 - 69 U/L [facility] CONVERSION Aspartate Aminotransferase 29(Panel Raiser Operator al Lab) 15 - 46 U/L [facility] CONVERSION Carbon Dioxide 27(Panel Raiser Operator al Lab) 22.0 - 30.0 mmol/L [facility] CONVERSION Blood Urea Nitrogen 17(Panel Raiser Operator al Lab) 7 - 20 mg/dL [facility] CONVERSION Calcium 9.8(Exter nal Lab) 8.4 - 10.2 mg/dL [facility] CONVERSION Protein, Total 7.1(Exter nal Lab) 6.3 - 8.2 g/dL [facility] CONVERSION Albumin 4.2(Exter nal Lab) 3.5 - 5.0 g/dL [facility] CONVERSION Potassium 4(Externa l Lab) 3.6 - 5.0 mmol/L NL[facility] CONVERSION Creatinine 0.7(Exter nal Lab) 0.52 - 1.04 mg/dL NL[facility] CONVERSION Bilirubin, Total 0.7(Exter nal Lab) 0.2 - 1.3 mg/dL [facility] CONVERSION 10/11/2013 7:48 AM EST Results Provider Nlh Conversion CHEMMathew CALIX ORDERABLES NLH CONVERSION documented in this encounter Visit Diagnoses Not on filedocumented in this encounter Care Teams Insulation Blower Relationship Specialty Start Date End Date Daniella Denny, ASIM [address] [facility] [address] [place] [address] PCP - General 07/21/10 03/10/21 documented as of this encounter
--- OUTSIDE RECORDS SUMMARY | 2024-05-04 01:42 | XMS_ITS | Encounter Summary ---
[place] [address] Care Team Providers Care Product Manager Name Role Phone Daniella Denny Andrez DAILEY Primary Care Provider Encounter Details Date Type Department Care Team (Late st Contact Info) Description 10/05/2012 Abstract Radiology and Cardiology Results [address] [place] [phone] Nlh Conversion, Results Provider, Social History [...] AM EST Hospital Encounter Non-Invasive [place] [phone] Arrived documented as of this encounter Procedures Procedure Name Priority Date/Time Associated Diagnosis Comments VITAMIN D, 25-HYDROXY Routine 10/05/2012 7:25 AM EST documented in this encounter Results * (ABNORMAL) Vitamin D, 25-Hydroxy (10/05/2012 7:25 AM EST) Vit D, 25-Hydroxy < 4(Externa l Lab) Not established ng/mL [facility] CONVERSION Vit D, 25-Hydroxy 38(Machine Strap Buckler al Lab) 30 - 100 ng/mL [facility] CONVERSION Vit D, 25-Hydroxy 38(Machine Strap Buckler al Lab) Not established ng/mL NL[facility] CONVERSION 10/05/2012 7:25 AM EST Results Provider Nlh Conversion MD ARIANA CALIX ORDERABLES NLH CONVERSION documented in this encounter Visit Diagnoses Not on filedocumented in this encounter Care Teams Product Manager Relationship Specialty Start Date End Date Daniella Denny, PERCUSSION INSTRUMENT TUNER [address] [place] [address] [address] [place] [id number] PCP - General 07/21/10 03/10/21 documented as of this encounter
--- OUTSIDE RECORDS SUMMARY | 2024-05-04 01:42 | XMS_ITS | Encounter Summary ---
Author Organization [place] [address] Care Team Providers Care Warehouse Helper Name Role Phone Vicenta Ndiaye APRN Primary Care Provider [phone] Reason for Visit * Consultation (Routine) - Closed Specialty Diagnoses / Procedures Referred By Contact Referred To Contact Electrophysiology / Cardiology Diagnoses A-fib Afib Procedures Afib Jere Mackenzie MD [address] [place] [address] [place] [address] [facility] [address] [place] [id number] Referral ID Status Reason Start Date Expiration Date V isits Requested Visits Authorized [id number] Closed Consult, Test & Treat 02/04/2021 02/04/2022 1 1 Encounter Details Date Type Department Care Team (Late st Contact Info) Description 03/11/2021 2:00 PM EDT Office Visit Cardiology at [address] [phone] Robin Alvarado MD [facility] [place] [address] Lizbeth Cuevas MD [facility] [address] Atrial fibrillation, unspecified type Social History Tobacco Use Types Packs/Day Years Used Date Smoking Tobacco: Former Smokeless Tobacco: Never Comments:college student for a few months Sex and Gender Information Value Date Recorded Sex Assigned at Not on file Gender Identity Not on file Sexual Orientation Not on file documented as of this encounter Last Filed Vital Signs Vital Sign Reading Time Taken Comments Blood Pressure 135/82 03/11/2021 2:07 PM EDT Pulse 56 03/11/2021 2:07 PM EDT Temperature - - Respiratory Rate - - Oxygen Saturation 100% 03/11/2021 2:07 PM EDT Inhaled Oxygen Concentration - - Weight - - Height 160 cm (5' 3) 03/11/2021 2:07 PM EDT rep orted Body Mass Index - - documented in this encounter Patient Instructions * Patient Instructions* Lizbeth Cuevas MD - 03/11/2021 2:00 PM EDT 1. Please do the holter monitor 2. Stop metoprolol 3. Call us with any symptoms 4. [phone], option #3. documented in this encounter Progress Notes * Lizbeth Cuevas MD - 03/11/2021 2:00 PM EDT [facility] Referring Provider: Daniella Denny Aprn [address] [place] [address] Primary Care Provider: Vicenta Ndiaye APRN [address] [place] [address] Patient Identification: Elena Dave is a 75 y.o. female here to discuss management options for her atrial fibrillation. Referring: Jere Mackenzie MD History of Present Illness: Ms. Dave is a 75 y.o. female with a history of HTN, hypothyroidism, and paroxysmal AF onXarelto ([id number]) who presents for evaluation of management options for atrial fibrillation. She was diagnosed in August 2020. She reports that in July 2020 she started having palpitations and overall started feeling unwell. She had a Holter monitor for 48 hours that showed 100% atrial fibrillation with peak heart rate of 115 bpm. After the Holter monitor, she was started on metoprolol 25 mg daily as well as Xarelto. Since then, she reports that she has had approximately 2 episodes ofpalpitations per week. They are usually associated with a short period of fatigue after the palpitations. These episodes usually last minutes. That said, from time to time she does report episodes ofshortness of breath with exertion, such as walking up the stairs, they are not always associated with palpitations. She further reports presyncope with these episodes. She did have several episodes of chest pain back in July but those have subsided. Notably, she had a cardiac echocardiogram which showed a normal ejection fraction, normal biatrial size, and no valvular abnormalities. She had a nuclear stress test done within the last 2 months that was unremarkable. She is currently on Xarelto 20 mg daily and metoprolol 25 mg XL. ECG today shows a sinus rhythm at 49 bpm, AR interval 292 ms and narrow QRS with poor R wave progression. She showed 1 concealed PAC with 1.5 pause. I have reviewed the patient's medical, social and family history in detail and updated the electronic medical record as appropriate. Problem List: Patient Active Problem List Diagnosis Code ??? Atrial fibrillation I48.91 ??? Hypertension I10 ??? Hypothyroidism E03.9 Social History: Social History Socioeconomic History ??? Marital status: Spouse name: Not on file ??? Number of children: Not on file ??? Years of education: Not on file ??? Highest education level: Not on file Occupational History ??? Not on file Tobacco Use ??? Smoking status: Not on file Substance and Sexual Activity ??? Alcohol use: Not on file ??? Drug use: Not on file ??? Sexual activity: Not on file Other Topics Concern ??? Not on file Social History Narrative ??? Not on file Social Determinants of Health Financial Resource Strain: ??? Difficulty of Paying Living Expenses: Food Insecurity: ??? Worried About Running Out of Food in the Last Year: ??? Ran Out of Food in the Last Year: Transportation Needs: ??? Lack of Transportation (Medical): ??? Lack of Transportation (Non-Medical): Physical Activity: ??? Days of Exercise per Week: ??? Minutes of Exercise per Session: Family History: No family history on file. Medications: Current Outpatient Medications Medication Sig Dispense Refill ??? Levothyroxine 13 mcg Capsule Daily ??? losartan-hydrochlorothiazide (HYZAAR) 100-12.5 mg Tablet 1 tablet. ??? metoprolol succinate XL (Toprol-XL) 25 mg Tablet Sustained Release 24 hr .night ??? rivaroxaban (Xarelto) 20 mg Tablet Daily ??? rosuvastatin (Crestor) 5 mg Tablet Daily No current facility-administered medications for this visit. Allergies: Allergies Allergen Reactions ??? Diflunisal ??? Ezetimibe ??? Quinapril Review of Systems: Pertinent items are noted in HPI. Physical Examination Vitals: There were no vitals taken for this visit. BMI: There is no height or weight on file to calculate BMI. General Appearance: alert, cooperative and in NAD HEENT: oropharynx clear and moist mucous membranes Neurologic: motor and sensory grossly normal bilaterally Psych: oriented to time, place and person and mood and affect are approprate Neck: no jugular venous distension Lungs: clear to auscultation with good air movement, no rales bilaterally Heart: normal rate, regular rhythm, normal S1, S2, no murmurs, rubs, clicks or gallops Abdomen: normoactive bowel sounds Extremities: no pedal edema noted, warm Musculoskeletal: Moves all extremities. Ambulates without Difficulty Skin: No rashes or ulcers Labs: Hematology Lab Results Component Value Date WBC 3.9 (ExtL) 11/26/2016 HGB 13.6 (External Lab) 11/26/2016 HCT 41 (External Lab) 11/26/2016 MCV 89 (External Lab) 11/26/2016 Chemistries Lab Results Component Value Date CREATININE 0.7 (External Lab) 11/26/2016 BUN 18 (External Lab) 11/26/2016 NA 140 (External Lab) 11/26/2016 K 4.3 (External Lab) 11/26/2016 CL 100 (External Lab) 11/26/2016 CO2 27 (External Lab) 11/26/2016 Liver Function Studies Lab Results Component Value Date ALT 39 (External Lab) 11/26/2016 AST 24 (External Lab) 11/26/2016 ALKPHOS 72 (External Lab) 11/26/2016 BILITOT 0.8 (External Lab) 11/26/2016 Thyroid Function Studies Lab Results Component Value Date TSH 3.435 (External Lab) 11/26/2016 Other studies: 48Hr holter in Aug 2020 showing 100% AF burden during that time, peak HR was 115 bpm. ECG with NSR but AR ~350 ms in Sep 2020 and January 2021. TTE from early 2020 showing normal EF, no valvular disease, and normal biatrial size. INR No results found for: INR Assessment/plan: 1) Atrial fibrillation: ?? Current rhythm - Sinus Bradycardia ?? Current anti-arrhythmic - none - Medication changes - no change ?? Current rate-control medication - metoprolol 25 mg XL - Medication changes - discontinue metoprolol ?? Monitoring strategy - routine ECGs during visits ?? Patient preference is to avoid AAD and ablation at this time. Would like to see how she does without metoprolol for the immediate future. See below for bradycardia discussion. 2) Anti-coagulation: The patient's current [id number] risk factors include Age 65(1), Age 75(2) andFemale sex(1) HTN for an annual risk of TIA/stroke/systemic thromboembolism of 4.6%. She is anti-coagulated with Rivaroxaban. Her anti- coagulation will be continued. 3) sinus bradycardia and prolonged AR interval: Although most of the patient's symptoms are consistent with atrial fibrillation, at times she does have dyspnea on exertion that is not associated withpalpitations. It is possible that this is secondary to being on metoprolol versus underlying conduction disease. Given her underlying sinus bradycardia and long AR interval, I am hesitant to increaseher metoprolol. We discussed, and the patient agreed, stopping her metoprolol to see how she does symptomatically with her A. fib. If she requires rate control agents in the future she will likely require a pacemaker. Additionally, if we are to pursue rhythm strategy with an antiarrhythmic, she will likely also require permanent pacing. Repeat 48 holter monitor. Follow-up: 2-3 months or by phone sooner if needed. I met with the patient today and independently confirmed the history, physical exam, and testing. Ipersonally reviewed and interpreted the available ECGs and additional cardiac testing (echo), as well as the labs. I agree with the detailed management plan as written in the fellow note today. I discussed this plan with the patient, who is also in agreement. ? Dr. Robin Alvarado, electrophysiology attending ([id number]) documented in this encounter Plan of Treatment Upcoming Encounters Date Type Department Care Team (Late st Contact Info) Description 07/13/2024 10:00 AM EST Hospital Encounter Non-[place] [address] Arrived documented as of this encounter Procedures Procedure Name Priority Date/Time Associated Diagnosis Comments EKG 12-LEAD Routine 03/11/2021 2:13 PM EDT Atrial fibrillation, unspecified type documented in this encounter Results * Holter Monitor 48hr (03/11/2021 3:51 PM EDT) Hookup Date [id number] [facility] Hookup Time [id number] [facility] Acquisition Duration [id number] S [facility] #QRS COMPLEXES [id number] HEART LAB SYSTEM # OF VENTRICULAR ECTOPICS 96 HEARTLAB SYSTEM # OF VENTRICULAR BIGEMINAL CYCLES 0 HEARTLAB SYSTEM # OF VENTRICULAR COUPLETS 1 HEARTLAB SYSTEM # OF SUPRAVENTRICULAR ECTOPICS 2852 HEARTLAB SYSTEM # OF SUPRAVENTRICULAR ISOLATED BEATS 2698 HEARTLAB SYSTEM # OF SUPRAVENTRICULAR COUPLETS 0 [facility]ART[facility] SYSTEM Avg. Heart Rate 60 BPM HEAR TLAB SYSTEM Max. Heart Rate 96 BPM HEAR TLAB SYSTEM Min. Heart Rate 40 BPM HEAR TLAB SYSTEM Max. Heart Rate Time/Date [id number] [facility] Min. Heart Rate Time/Date [id number] [facility] INTERPRETATION 03/18/2021 __ Ashley Cabrera [facility] Anatomical Region Laterality Modality Other 03/11/2021 3:42 PM EDT Narrative 03/20/2021 4:38 PM EDT Indication: Atrial fibrillation Minimum heart rate: 40 bpm Average heart rate 60 bpm Maximum heart rate 96 bpm Less than 1% ventricular ectopic beats 2% supraventricular ectopic beats Predominant rhythm is normal sinus with first degree heart block. ??Some pauses are noted, the longest being 3.23 seconds with complete heart block noted. ??No atrial fibrillation was noted. ??Occasional pvc's are present. ?? Artifact is also noted. ?? Impression: 1. Normal sinus rhythm with 1st degree heart block 2. One 3.23 second episode of complete heart block Robin Alvarado MD CARDIAC SERVICES ORD ERABLES * EKG 12 Lead (03/11/2021 2:13 PM EDT) Ventricular rate 49 BPM MUSE SYSTEM Atrial Rate 49 BPM MUSE SYSTEM P-R Interval 392 ms MUSE SYSTEM QRS Duration 88 ms MUSE SYSTEM Q-T Interval 460 ms MUSE SYSTEM QTC Calculated (Bezet) 415 ms MUSE SYSTEM Calculated P [place] 23 degrees MUSE SYSTEM Calculated R [place] 4 degrees MUSE SYSTEM Calculated T [place] -15 degrees MUSE SYSTEM INTERPRETATION Sinus bradycardia with 1st degree A-V block Blocked Premature atrial complexes Low voltage QRS Borderline ECG No previous ECGs available Confirmed by MD TANJA, MARIO ([id number]) on 03/11/2021 11:22:52 PM MUSE SYSTEM 03/11/2021 2:13 PM EDT 03/11/2021 11:22 PM EDT Robin Alvarado MD ECG ORDERABLES MUSE SYSTEM documented in this encounter Visit Diagnoses Diagnosis Atrial fibrillation, unspecified type Atrial fibrillation, unspecified type documented in this encounter Care Teams Warehouse Helper Relationship Specialty Start Date End Date Vicenta Ndiaye APRN [address] [place] [address] PCP - General Family Medicine 03/11/21 documented as of this encounter
--- OUTSIDE RECORDS SUMMARY | 2024-05-04 01:42 | XMS_ITS | Encounter Summary ---
Author Organization [facility] [place] [address] Care Team Providers Care Budget Officer Name Role Phone Vicenta Ndiaye APRN Primary Care Provider [phone] Reason for Visit * Auth/Cert Specialty Diagnoses / Procedures Referred By Contac t Referred To Contact Diagnoses atrial fibrillation Procedures PRO CARDIOVERSION ELECTIVE ARRHYTHMIA EXTERNAL CARDIOVERSION-ELECTIVE (WRVU 2.25) Referral ID Status Reason Start Date Expiration Date Visits Re quested Visits Authorized [id number] 1 1 Encounter Details Date Type Department Care Team (Late st Contact Info) Description 07/16/2021 10:00 AM EST Office Visit Cardiology at [address] [address] Meagan Gonzalez PA [facility] [place] [address] Persistent atrial fibrillation Social History Tobacco Use [...] Sign Reading Time Taken Comments Blood Pressure 143/69 07/16/2021 9:38 AM EST Pulse 63 07/16/2021 9:38 AM EST Temperature - - Respiratory Rate - - Oxygen Saturation 99% 07/16/2021 9:38 AM EST Inhaled Oxygen Concentration - - Weight 83.8 kg (184 lb 12.8 oz) 07/16/2021 9:38 AM EST Height 160 cm (5' 3) 07/16/2021 9:38 AM EST rep orted Body Mass Index 32.74 07/16/2021 9:38 AM EST documented in this encounter Progress Notes * Meagan Gonzalez PA - 07/16/2021 10:00 AM EST Day of Cardioversion History and Physical Subjective: Patient ID: Elena Dave is a 75 y.o. female. CC: Presents for pre-cardioversion evaluation HPI: 75 y.o. female with past medical history of persistent atrial fibrillation on Xarelto, HTN, and hypothyroidism followed by Dr. Robin Alvarado, who presents today for elective cardioversion. There have not been any medication changes since the last visit. This morning, no medications were taken. she has been NPO since 07/15 1945. she is anticoagulated with Xarelto (is adamant there have been no missed doses in the last 3 weeks). Originally from [place]. 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 Lives in [place], [place] with her ,Jaime. Patient Active Problem List Diagnosis ??? Atrial fibrillation ??? Hypertension ??? Hypothyroidism Interval ROS: Patient denies, fever, leg swelling, presyncope or syncope. Medications: No current outpatient medications on file. Allergies Allergies Allergen Reactions ??? Diflunisal ??? Ezetimibe ??? Quinapril Objective: Vitals: Vitals: 07/16/21 0938 BP: 143/69 Patient Position: Sitting Pulse: 63 SpO2: 99% Weight: 83.8 kg (184 lb 12.8 oz) Height: 160 cm (5' 3) Physical Exam: General- No acute distress, sitting comfortably in exam room chair Skin- Warm and dry Cardiovascular- S1/S2 regular rate and irregularly irregular rhythm. No murmur, rub or gallop Lungs- Clear to auscultation bilaterally Extremities- Pulses equal bilaterally. No edema noted Neuro- A&Ox3 ECG in office today shows atrial fibrillation with ventricular rate of 63bpm, QRS 82ms, QT 402ms, QTc 411ms. Lab data: Recent Labs 07/16/21 0925 NA 140 K 4.5 CL 105 CO2 25 BUN 16 CREATININE 0.93 GLUCOSE 118 Estimated Creatinine Clearance: 53.6 mL/min (based on SCr of 0.93 mg/dL). Assessment and Plan: 75 y.o. female with past medical history of persistent atrial fibrillation on Xarelto, HTN, and hypothyroidism who presents for elective DCCV. No contraindication to planned cardioversion today. Plan: 1. The cardioversion procedure was discussed and questions answered. We discussed possible risks including but not limited to: skin irritation or gonsalez, bradycardia or rhythm abnormalities (arrhythmia), stroke(CVA), aspiration, cardiac arrest. Written consent was obtained and given to Same Day staff for chart placement. 2. Code Status: FULL CODE 3. Patient to proceed to Same Day Program 4. Follow up with Dr. Alvarado in ~2-3 months I appreciate the opportunity to be involved with Ms. Dave's care. Please do not hesitateto contact EP with any further questions (pager [phone]). MARGARITA Saul Pager: [phone] documented in this encounter Plan of Treatment Upcoming Encounters Date Type Department Care Team (Late st Contact Info) Description 07/13/2024 10:00 AM EST Hospital Encounter Non-Invasive [place] [address] Arrived documented as of this encounter Procedures Procedure Name Priority Date/Time Associated Diagnosis Comments EKG 12-LEAD Routine 07/16/2021 9:42 AM EST Persistent atrial fibrillation documented in this encounter Results * EKG 12 Lead (07/16/2021 9:42 AM EST) Ventricular rate 63 BPM MUSE SYSTEM QRS Duration 82 ms MUSE SYSTEM Q-T Interval 402 ms MUSE SYSTEM QTC Calculated (Bezet) 411 ms MUSE SYSTEM Calculated R [place] 17 degrees MUSE SYSTEM Calculated T [place] -48 degrees MUSE SYSTEM INTERPRETATION Atrial fibrillation Low voltage QRS Cannot rule out Anterior infarct (cited on or before 16-JUL-2021) Abnormal ECG When compared with ECG of 11-JUN-2021 11:12, Nonspecific T wave abnormality now evident in Anterior leads Confirmed by MD AGRAWAL ARMIN ([id number]) on 07/16/2021 2:49:15 PM MUSE SYSTEM 07/16/2021 9:42 AM EST 07/16/2021 2:49 PM EST Naveen Diaz MD ECG ORDERABLES [employer] SYSTEM documented in this encounter Visit Diagnoses Diagnosis Persistent atrial fibrillation Atrial fibrillation documented in this encounter Care Teams Budget Officer Relationship Specialty Start Date End Date Vicenta Ndiaye APRN [address] [place] [address] PCP - General Family Medicine 03/11/21 documented as of this encounter
--- OUTSIDE RECORDS SUMMARY | 2024-05-04 01:42 | XMS_ITS | Encounter Summary ---
[place] [address] Care Team Providers Care Geriatrics Physician Name Role Phone Barrydinh Daniella Andrez DAILEY Primary Care Provider Encounter Details Date Type Department Care Team (Late st Contact Info) Description 04/08/2014 Abstract Radiology and Cardiology Results [address] [place] [phone] [facility] Conversion, Results Provider, Social History Tobacco Use [...] AM EST Hospital Encounter Non-[place] [phone] Arrived documented as of this encounter Procedures Procedure Name Priority Date/Time Associated Diagnosis Comments HEPATITIS C RNA, QUANTITATIVE, PCR Routine 04/08/2014 7:45 AM EDT LIPID PANEL (REFLEX DIRECT LDL) Routine 04/08/2014 7:45 AM EDT COMPREHENSIVE METABOLIC PANEL Routine 04/08/2014 7:45 AM EDT documented in this encounter Results * (ABNORMAL) Lipid Panel (Reflex Direct LDL) (04/08/2014 7:45 AM EDT) Triglyceride 169(ExtH) <=149 mg/dL [facility] CONVERSION Cholesterol, Total 159(Exter nal Lab) <=199 mg/dL [facility] CONVERSION HDL Cholesterol 64(ExtH) 40 - 60 mg/dL [facility] CONVERSION LDL Cholesterol 61.2(Exte rnal Lab) <=99.0 mg/dL [facility] CONVERSION 04/08/2014 7:45 AM EDT Results Provider Nlh Conversion MD ARIANA CALIX ORDERABLES [facility] CONVERSION * (ABNORMAL) Comprehensive metabolic panel (non-fasting) (04/08/2014 7:45 AM EDT) Sodium 142(Exter nal Lab) 137 - 145 mmol/L [facility] CONVERSION Glucose 105(ExtH) 65 - 99 mg/dL [facility] CONVERSION Chloride 101(Exter nal Lab) 98 - 107 mmol/L [facility] CONVERSION Alkaline Phosphatase 63(Relays [facility] al Lab) 38 - 126 U/L [facility] CONVERSION Est Glomerular Filtration Rate 60(Relays [facility]) >=60 mL/min/1. 73m2 [facility] CONVERSION eGFR 60(Relays [facility]) >=60 mL/min/1. 73m2 [facility] CONVERSION Alanine Aminotransferase 39(Relays [facility]) 13 - 69 U/L [facility] CONVERSION Aspartate Aminotransferase 28(Relays [facility]) 15 - 46 U/L [facility] CONVERSION Carbon Dioxide 27(Rel[facility]) 22.0 - 30.0 mmol/L [facility] CONVERSION Blood Urea Nitrogen 19(Relays [facility]) 7 - 20 mg/dL [facility] CONVERSION Calcium 9.7(Exter nal Lab) 8.4 - 10.2 mg/dL [facility] CONVERSION Protein, Total 7.3(Exter nal Lab) 6.3 - 8.2 g/dL [facility] CONVERSION Albumin 4.3(Exter nal Lab) 3.5 - 5.0 g/dL [facility] CONVERSION Potassium 4(Externa l Lab) 3.6 - 5.0 mmol/L [facility] CONVERSION Creatinine 0.7(Exter nal Lab) 0.52 - 1.04 mg/dL [facility] CONVERSION Bilirubin, Total 0.7(Exter nal Lab) 0.2 - 1.3 mg/dL NL[facility] CONVERSION 04/08/2014 7:45 AM EDT Results Provider Nlh Conversion MD ARIANA CALIX ORDERABLES [facility] CONVERSION * (ABNORMAL) Hepatitis C RNA, quantitative, PCR (04/08/2014 7:45 AM EDT) Hepatitis C RNA-PCR < 15 NOT DETECTED(E xternal Lab) <15 IU/mL [facility] CONVERSION Hepatitis C RNA-PCR < 1.18 NOT DETECTED(E xternal Lab) <1.18 LogIU/mL [facility] CONVERSION 04/08/2014 7:45 AM EDT Results Provider Nlh Conversion MD NEFTALY FLOWERS ORDERABLES [facility] CONVERSION documented in this encounter Visit Diagnoses Not on filedocumented in this encounter Care Teams Geriatrics Physician Relationship Specialty Start Date End Date Daniella Denny, ASIM [address] [facility] [address] [place] [address] PCP - General 07/21/10 03/10/21 documented as of this encounter
--- OUTSIDE RECORDS SUMMARY | 2024-05-04 01:42 | XMS_ITS | Encounter Summary ---
Author Organization [facility] [place] [address] Care Team Providers Care Pollution Control Technician Name Role Phone Senthil Vicenta DAILEY Primary Care Provider [phone] Encounter Details Date Type Department Care Team (Late st Contact Info) Description 06/11/2021 10:00 AM EDT Office Visit Cardiology at [address] [address] Robin Alvarado MD [facility] [place] [address] Keny Guzman MD [facility] [place] [address] Persistent atrial fibrillation Social History Tobacco Use [...] Sign Reading Time Taken Comments Blood Pressure 166/71 06/11/2021 10:12 AM EDT Pulse 53 06/11/2021 10:12 AM EDT Temperature - - Respiratory Rate - - Oxygen Saturation 98% 06/11/2021 10:12 AM EDT Inhaled Oxygen Concentration - - Weight 84.8 kg (187 lb) 06/11/2021 10:12 AM EDT Height 160 cm (5' 3) 06/11/2021 10:12 AM EDT Body Mass Index 33.13 06/11/2021 10:12 AM EDT documented in this encounter Progress Notes * Robin Alvarado MD - 06/11/2021 10:00 AM EDT Images from the original note were not included. Section of Cardiology/Cardiac Electrophysiology Clinical Cardiac Electrophysiology Follow Up Patient ID Elena Dave [id number] Elena Dave is following up in EP clinic C/c: AF History Ms. Dave and I met for follow up of her AF. She last met with me and Dr. Cuevas in February2021. At that time, she was in sinus rhythm and had a Holter applied that showed no atrial fibrillation, sinus rhythm with maximum heart rate around 95 bpm and prolonged UT interval. She generally feels OK in sinus rhythm but feels winded and drags in atrial fibrillation and feels today that she has been in AF for some time. She has not had syncope, presyncope, orthopnea, PND, or significant leg swelling. Problem List Patient Active Problem List Diagnosis [...] Strain: ??? Difficulty of Paying Living Expenses: Not on file Food Insecurity: ??? Worried About Running Out of Food in the Last Year: Not on file ??? Ran Out of Food in the Last Year: Not on file Transportation Needs: ??? Lack of Transportation (Medical): Not on file ??? Lack of Transportation (Non-Medical): Not on file Physical Activity: ??? Days of Exercise per Week: Not on file ??? Minutes of Exercise per Session: Not on file Housing Stability: ??? Unable to Pay for Housing in the Last Year: Not on file ??? Number of Places Lived in the Last Year: Not on file ??? Unstable Housing in the Last Year: Not on file Family History No family history on file. Exam 166/71 HR 53 sat 98% on RA @EXAM@ GEN: patient appears well and in no apparent distress, alert and oriented ENT: extraocular movements with full range of motion NECK: normal JVP CHEST: clear to auscultation with no wheeze, rhonchi or rales. Symmetric chest movement COR: S1S2, bradycardia, irregular rhythm, no discernible murmurs, rubs or gallops. ABDOMEN: soft, nontender, nondistended, normal bowel sounds EXTREMITIES: no edema, warm, well perfused NEUROLOGICAL: alert and oriented to person, place and time. CN 2-12 grossly intact. I have personally reviewed the ECG: atrial fibrillation at 48 bpm QRS 86 ms QTc 421 ms I have personally reviewed all pertinent labs, cardiac rhythm monitors and imaging Impression/Plan Ms. Dave and I had a lengthy discussion about AF. We discussed at length and in detail atrial fibrillation, its natural history and its pathophysiology. We discussed the role of anticoagulation in stroke prevention and the assessment of stroke risk by the [id number] score. We discussed rate versus rhythm control and the results of the AFFIRM trialand that the role of rhythm control is largely to control symptoms. We discussed rhythm control options including antiarrhythmic drugs and ablation. We spoke of the procedural details, risks, benefits and alternatives of atrial fibrillation ablation. Major complications from a first procedure occur in approximately 6% of patients. ~ 1.5 % risk of tamponade, esophageal injury 0.1% or less, vagus nerve damage < 1%, phrenic nerve damage < 1%, vascular complications ~ 2%, CVA ~ 0.5%, Pericarditis ~ 30%, 0.1% 15 % of patients have more frequent AF in the post ablation period. The blanking period occurs for 3 months post-procedure during which AF may come and go but does not necessarily indicate proceduralfailure. 20-40% of patients require repeat atrial fibrillation ablation, but this is generally deferred for over three months after the index procedure. Overall, I think rhythm control is very reasonable to pursue given Ms. Noel Keith's symptoms in AF. This will be difficult to achieve without either ablation or pacemaker; she may require pacemaker implantation in the near future in any case, due to her bradycardia, though she has had no significant symptoms referable to bradycardia. For now, she wishes to pursue cardioversion to assess her symptoms and durability of sinus rhythm. Will arrange according to her schedule. I stressed the importance of compliance with anticoagulation in order to avoid JOE on day of procedure. Robin Alvarado MD 40 total minutes of this clinic was spent on patient counseling, review of medical record, note entry, physical exam, scheduling of procedure. Cc: Vicenta Ndiaye APRN documented in this encounter Plan of Treatment Upcoming Encounters Date Type Department Care Team (Late st Contact Info) Description 07/13/2024 10:00 AM [facility] Hospital Encounter [place] [address] Arrived documented as of this encounter Procedures Procedure Name Priority Date/Time Associated Diagnosis Comments EKG 12-LEAD Routine 06/11/2021 11:12 AM EDT Persistent atrial fibrillation documented in this encounter Results * EKG 12 Lead (06/11/2021 11:12 AM EDT) Ventricular rate 48 BPM MUSE SYSTEM QRS Duration 86 ms MUSE SYSTEM Q-T Interval 472 ms MUSE SYSTEM QTC Calculated (Bezet) 421 ms MUSE SYSTEM Calculated R [place] 13 degrees MUSE SYSTEM Calculated T [place] -22 degrees MUSE SYSTEM INTERPRETATION Atrial fibrillation with slow ventricular response Low voltage QRS Nonspecific ST and T wave abnormality Abnormal ECG When compared with ECG of 11-MAR-2021 14:13, Atrial fibrillation has replaced Sinus rhythm Confirmed by Pham Freeman MD ([id number]) on 06/11/2021 11:43:54 AM MUSE SYSTEM 06/11/2021 11:1 2 AM EDT 06/11/2021 11:43 AM EDT Robin Alvarado MD ECG ORDERABLES MUSE SYSTEM documented in this encounter Visit Diagnoses Diagnosis Persistent atrial fibrillation Atrial fibrillation documented in this encounter Care Teams Pollution Control Technician Relationship Specialty Start Date End Date Vicenta Ndiaye APRN [address] [place] [address] PCP - General Family Medicine 03/11/21 documented as of this encounter
--- OUTSIDE RECORDS SUMMARY | 2024-05-04 01:42 | XMS_ITS | Encounter Summary ---
[place] [address] Care Team Providers Care Training Designer Name Role Phone Vicenta Ndiaye APRN Primary Care Provider [phone] Encounter Details Date Type Department Care Team (Late st Contact Info) Description 07/15/2021 Telephone Cardiology at [address] [address] Autumn Akbar RN Social History Tobacco Use Types Packs/Day Years Used Date Smoking Tobacco: Former Smokeless Tobacco: Never Comments:college student for a few months Sex and Gender Information Value Date Recorded Sex Assigned at Not on file Gender Identity Not on file Sexual Orientation Not on file documented as of this encounter Miscellaneous Notes * Telephone Encounter - Autumn Akbar RN - 07/15/2021 12:19 PM ESTSummary: Pre Procedure Call: Cardioversion CHIO RN CARDIOVERSION/DRUG LOAD CHECKLIST Patient Name: Elena Dave Patient Providers: Meagan Gonzalez / Janett Vidal Date Scheduled: 07/16/21 Arrival Time/ Case Time: 9:00 am labs / 10:00 am appt / 11:30 CV Date Patient was Called: 07/15/21 Procedure: Cardioversion Med Instructions: DIURETIC - hold losartan-HCTZ the AM of procedure Anticoag Type: Xarelto (rivaroxaban) - confirmed pt taking appropriately & no missed doses within past 21 days DM: No Coming from an assisted living facility?: No Special Considerations/Notes: Clear liquids (water, apple juice, garfield reyna, black coffee/tea) OK up until 2 hrs prior to procedure. NPO after midnight. Understands that pile driver operator barge mounted is needed to transport them upon discharge. documented in this encounter Plan of Treatment Upcoming Encounters Date Type Department Care Team (Late st Contact Info) Description 07/13/2024 10:00 AM EST Hospital Encounter [place] [address] Arrived documented as of this encounter Visit Diagnoses Not on filedocumented in this encounter Care Teams Training Designer Relationship Specialty Start Date End Date Vicenta Ndiaye APRN [address] [place] [address] PCP - General Family Medicine 03/11/21 documented as of this encounter
--- OUTSIDE RECORDS SUMMARY | 2024-05-04 01:42 | XMS_ITS | Encounter Summary ---
[place] [address] Care Team Providers Care Pattern Worker Name Role Phone TawannameganDaniella Andrez DAILEY Primary Care Provider Encounter Details Date Type Department Care Team (Late st Contact Info) Description 01/08/2014 Abstract Radiology and Cardiology Results [address] [place] [phone] Nl Conversion, Results Provider, Social History Tobacco Use [...] AM EST Hospital Encounter Non-[place] [phone] Arrived documented as of this encounter Procedures Procedure Name Priority Date/Time Associated Diagnosis Comments HEPATIC FUNCTION PANEL Routine 01/08/2014 7:32 AM EDT LIPID PANEL (REFLEX DIRECT LDL) Routine 01/08/2014 7:32 AM EDT documented in this encounter Results * (ABNORMAL) Hepatic Function Panel (01/08/2014 7:32 AM EDT) Alkaline Phosphatase 68(Manager Digital Ad Operations al Lab) 38 - 126 U/L [facility] CONVERSION Alanine Aminotransferase 35(Manager Digital Ad Operations al Lab) 13 - 69 U/L [facility] CONVERSION Aspartate Aminotransferase 26(Manager Digital Ad Operations al Lab) 15 - 46 U/L [facility] CONVERSION Protein, Total 7.2(Exter nal Lab) 6.3 - 8.2 g/dL [facility] CONVERSION Albumin 4.4(Exter nal Lab) 3.5 - 5.0 g/dL [facility] CONVERSION Bilirubin, Total 0.7(Exter nal Lab) 0.2 - 1.3 mg/dL [facility] CONVERSION Bilirubin, Direct 0(Externa l Lab) 0.0 - 0.3 mg/dL [facility] CONVERSION 01/08/2014 7:32 AM EDT Results Provider Nlh Conversion MD ARIANA CALIX ORDERABLES [facility] CONVERSION * (ABNORMAL) Lipid Panel (Reflex Direct LDL) (01/08/2014 7:32 AM EDT) Cholesterol, Total 152(Exter nal Lab) <=199 mg/dL [facility] CONVERSION Triglyceride 102(Exter nal Lab) <=149 mg/dL [facility] CONVERSION LDL Cholesterol 75.6(Exte rnal Lab) <=99.0 mg/dL [facility] CONVERSION HDL Cholesterol 56(Manager Digital Ad Operations al Lab) 40 - 60 mg/dL [facility] CONVERSION 01/08/2014 7:32 AM EDT Results Provider Nlh Conversion MD ARIANA CALIX ORDERABLES [facility] CONVERSION documented in this encounter Visit Diagnoses Not on filedocumented in this encounter Care Teams Pattern Worker Relationship Specialty Start Date End Date Daniella Denny, DISEASE CASE MANAGER [address] [place] [address] PCP - General 07/21/10 03/10/21 documented as of this encounter
--- OUTSIDE RECORDS SUMMARY | 2024-05-04 01:42 | XMS_ITS | Encounter Summary ---
Author Organization [facility] Address [facility] [place] [address] Care Team Providers Care Security Technician Name Role Phone Senthil Vicenta DAILEY Primary Care Provider [phone] Encounter Details Date Type Department Care Team (Latest Contact Info) Description 03/11/2021 3:27 PM EDT - 03/11/2021 11:59 PM EDT Hospital Encounter Non[place] [address] Robin Alvarado MD [facility] [place] [address] Atrial fibrillation, unspecified type Discharge Disposition: Home Social History [...] Sig Dispensed Refills Start Date End Date multivitamin (THERAGRAN) Tablet Take 1 tablet by mouth daily. rivaroxaban (Xarelto) 20 mg Tablet Take 20 mg by mouth daily. 09/08/2020 fish oil-omega-3 fatty acids 1,000 mg Capsule Take 2 g by mouth daily. 04/07/2023 losartan-hydrochlorothiaz tamika (HYZAAR) 100-12.5 mg Tablet 1 tablet. 09/08/2020 02/07/2023 rosuvastatin (Crestor) 5 mg Tablet 2.5 mg. 02/03/2021 02/07/2023 documented as of this encounter Plan of Treatment Upcoming Encounters Date Type Department Care Team (Late st Contact Info) Description 07/13/2024 10:00 AM EST Hospital Encounter Non-[place] [address] Arrived documented as of this encounter Procedures Procedure Name Priority Date/Time Associated Diagnosis Comments HOLTER MONITOR 48 HOUR Routine 03/11/2021 3:51 PM EDT Atrial fibrillation, unspecified type documented in this encounter Results * Holter Monitor 48hr (03/11/2021 3:51 PM EDT) Hookup Date [id number] HEARTLAB SYSTEM Hookup Time [id number] HEARTLAB SYSTEM Acquisition Duration 776189 S HEARTLAB SYSTEM #QRS COMPLEXES [id number] HEART LAB SYSTEM # OF VENTRICULAR ECTOPICS [...] HEAR TLAB SYSTEM Max. Heart Rate Time/Date [id number] HEARTLAB SYSTEM Min. Heart Rate Time/Date [id number] HEARTLAB SYSTEM INTERPRETATION 03/18/2021 __ Ashley Cabrera [...] Robin Alvarado MD CARDIAC SERVICES ORD ERABLES documented in this encounter Visit Diagnoses Diagnosis Atrial fibrillation, unspecified type documented in this encounter Care Teams Security Technician Relationship Specialty Start Date End Date Vicenta Ndiaye APRN [address] [place] [address] PCP - General Family Medicine 03/11/21 documented as of this encounter
--- OUTSIDE RECORDS SUMMARY | 2024-05-04 01:42 | XMS_ITS | Encounter Summary ---
Author [facility] [place] [address] Care Team Providers Care Hydraulic Press Operator Name Role Phone Senthil Vicenta DAILEY Primary Care Provider [phone] Reason for Visit * Auth/Cert Specialty Diagnoses / Procedures Referred By Contac t Referred To Contact Diagnoses atrial fibrillation Procedures PRO CARDIOVERSION ELECTIVE ARRHYTHMIA EXTERNAL CARDIOVERSION-ELECTIVE (WRVU 2.25) Referral ID Status Reason Start Date Expiration Date Visits Re quested Visits Authorized [id number] 1 1 Encounter Details Date Type Department Care Team (Late st Contact Info) Description 07/16/2021 12:00 PM EST - 07/16/2021 12:30 PM EST Surgery [place] [address] Janett Vidal MD [facility] [place] [address] [place] [address] CARDIOVERSION-ELECTIVE (WRVU 2) Social History Tobacco Use Types Packs/Day Years Used Date Smoking Tobacco: Former Smokeless Tobacco: Never Comments:college student for a few months Sex and Gender Information Value Date Recorded Sex Assigned at Not on file Gender Identity Not on file Sexual Orientation Not on file documented as of this encounter Last Filed Vital Signs Vital Sign Reading Time Taken Comments Blood Pressure 161/63 07/16/2021 11:35 AM EST Pulse 65 07/16/2021 11:35 AM EST Temperature 36.4 ??C (97.5 ??F) 07/16/2021 11:[address] Respiratory Rate 18 07/16/2021 11:35 AM EST Oxygen Saturation 99% 07/16/2021 11:35 AM EST Inhaled Oxygen Concentration - - Weight 82.6 kg (182 lb) 07/16/2021 11:35 AM EST Height 160 cm (5' 3) 07/16/2021 11:35 AM EST Body Mass Index 32.24 07/16/2021 11:35 AM EST documented in this encounter Discharge Instructions * Discharge Instructions* Martita Staley RN - 07/16/2021 12:42 PM EST Images from the original note were not included. CARDIOVERSION INFORMATION What are the risks of cardioversion? Cardioversion is a frequently performed procedure with a low risk of serious side effects. Serious complications occur in less than one out of a hundred patients. These complications include: ? A very slow heartbeat (bradycardia) ? A very fast heartbeat (tachycardia) ? Stroke ? Pneumonia You may have redness, burning, stinging, or itching on the skin where the pads were placed. If you go home and are uncomfortable, there are several ointments that you can purchase over the counter touse on your skin. For example: ? Anesthetic ointment, such as Lanacaine ? Hydrocortisone 1% (steroid) cream in the form of Cortaid or Kericort Some patients report that applying ice packs to the pad sites decreases the discomfort. Call the cardiologists who performed the test if you need a prescription for a stronger medication. What instructions should I follow for the next few days after the cardioversion? Activity: ? Rest after the procedure. You may be sleepy for several hours. ? Be careful on the stairs during the remainder of the day; you may be unsteady on your feet. ? Do not smoke at home if you are alone for 24 hours following your procedure. ? Do not drive, operate machinery, drink alcoholic beverages, or make important decisions for 24 hours. The medications may change your reaction time or judgment without your awareness. Diet: ? Follow your regular diet as tolerated. If nausea occurs, start with clear liquids, and progress slowly to your regular diet. Medications: ? Your heart medications may not be the same after your cardioversion. Check with your doctor aboutwhat medicines to take. Follow-up care: ? If you have return of the symptoms associated with your abnormal heartbeat, contact your doctor. ? If you need a stronger medicine to treat your skin where the adhesive pads were placed, call the meat and poultry inspector sephora product consultant at . ? We will schedule a follow-up appointment with the meat and poultry inspector here, or you will be scheduled to see your local doctor soon. Any specific instructions that apply to you will be given to you prior to discharge from the hospital. If you have any questions about this procedure, call the Cardiology Department at: Tuesday through Tuesday 8:00 a.m. to 4:30 p.m. documented in this encounter Medications at Time [...] 02/03/2021 02/07/2023 documented as of this encounter Progress Notes * Rhonda Harper RN - 07/16/2021 1:48 PM EST Report from Martita MCKEON. Post cardioversion ekg performed and read by provider. Pt may be discharged home. Discharge instructions reviewed with pt and spouse. No voiced concerns. Pt oob without dizziness. Denies pain or nausea. Ready for discharge home. Wheel chair to East Entrance. documented in this encounter H&P Notes * Meagan Gonzalez PA - 07/16/2021 10:30 AM EST Patient Name: Elena Dave Patient Age: 75 y.o. Birthdate: 1945 Admit date: 07/16/2021 Attending Physician: Janett Vidal MD Please see Meagan Gonzalez' 07/16/21 clinic note. Patient is anticoagulated with Xarelto, has not missed any doses in at least 3 weeks. Consent signed. No contraindications to today's planned DCCV. Notably, ventricular rates in afib are in the 60s in absence of AVN agent. MARGARITA Saul 10:30 AM 07/16/21 documented in this encounter Procedure Notes * Janett Vidal MD - 07/16/2021 1:11 PM ESTProcedure(s): CARDIOVERSION-OR Pre-Procedure Diagnose(s): Persistent atrial fibrillation Post-Procedure Diagnose(s): Persistent atrial fibrillation ELECTRICAL CARDIOVERSION Attending: Janett Vidal MD Supervisor Sanding: Date of Procedure: 07/16/2021 Indication: Atrial fibrillation, persistent After obtaining informed consent, the patient was brought to the procedure room in the fasting state with an intravenous line in place. After answering all of the patient's questions anesthesia was induced by the anesthesia team (see separate documentation). 1 attempt was made (see details below), and the patient returned to a normal sinus rhythm at 60s bpm with Mobitz I. First attempt: 200 Joules (x) Left anterior, left scapular () Right anterior, left scapular () Left upper parasternal and apical () Other: The patient subsequently awoke with no memory of the cardioversion, and there were no apparent complications. Post-Procedure Instructions: - Obtain 12-lead ECG - Second degree type I AV block post cardioversion consistent with AV kaden disease; avoid AV nodalagents if possible. She has been counseled previously regarding potential need for pacemaker in thefuture. - continue routine anticoagulation - follow up with EP per routine. documented in this encounter Plan of Treatment Upcoming Encounters Date Type Department Care Team (Late st Contact Info) Description 07/13/2024 10:00 AM EST Hospital Encounter Non[place] [address] Arrived documented as of this encounter Procedures Procedure Name Priority Date/Time Associated Diagnosis Comments EKG 12-LEAD STAT 07/16/2021 12:41 PM EST Persistent atrial fibrillation Cardioversion Elective Arrhythmia External (19501) 07/16/2021 12:12 PM EST Persistent atrial fibrillation CARDIOVERSION-OR Routine 07/16/2021 11:2 3 AM EST Persistent atrial fibrillation documented in this encounter Results * EKG 12 Lead (07/16/2021 12:41 PM EST) Ventricular rate 50 BPM MUSE SYSTEM Atrial Rate 50 BPM MUSE SYSTEM P-R Interval 416 ms MUSE SYSTEM QRS Duration 84 ms MUSE SYSTEM Q-T Interval 470 ms MUSE SYSTEM QTC Calculated (Bezet) 428 ms MUSE SYSTEM Calculated P [place] 33 degrees MUSE SYSTEM Calculated R [place] -4 degrees MUSE SYSTEM Calculated T [place]edy -28 degrees MUSE SYSTEM INTERPRETATION Sinus bradycardia with 2nd degree A-V block (Mobitz I) Left axis deviation Abnormal ECG When compared with ECG of 16-JUL-2021 09:42, (unconfirmed) Sinus bradycardia with 2nd degree A-V block (Mobitz I) has replaced Atrial fibrillation I personally reviewed the tracing and edited the fellows interpretation Confirmed by fellow MD Rosaura [facility] ([id number]) on 07/17/2021 3:55:44 PM Confirmed by Maddie Parker ([id number]) on 07/19/2021 1:11:30 PM MUSE SYSTEM 07/16/2021 12:4 1 PM EST 07/19/2021 1:11 PM EST Janett Vidal MD ECG ORDERABLES MUSE SYSTEM documented in this encounter Visit Diagnoses Diagnosis Persistent atrial fibrillation Atrial fibrillation Persistent atrial fibrillation Atrial fibrillation documented in this encounter Active and Recently Administered Medications Times are shown in EST. Continuous Medication Order 07/14/2021 07/15/2021 07/16/2021 lactated ringers infusion (CANCELED) 1,000 mL, at 100 mL/hr, Intravenous, CONTINUOUS, Starting on Maria L 07/16/21 at 1200, Until Maria L 11/18/21 at 1340, Day of Surgery (Day of Procedure) 1202 (New Bag - Prov ider: Richa Sweeney CRNA) documented in this encounter Care Teams Hydraulic Press Operator Relationship Specialty Start Date End Date Vicenta Ndiaye APRN [address] [place] [address] PCP - General Family Medicine 03/11/21 documented as of this encounter
--- OUTSIDE RECORDS SUMMARY | 2024-05-04 01:42 | XMS_ITS | Encounter Summary ---
[place] [address] Care Team Providers Care President And Chief Executive Officer Name Role Phone Daniella Denny ARCHITECT MANAGER Primary Care Provider Encounter Details Date Type Department Care Team (Late st Contact Info) Description 05/17/[address] [phone] Daniella Denny, ARCHITECT MANAGER [address] [address] Social History Tobacco Use Types Packs/Day Years Used Date Smoking Tobacco: Never Assessed Sex and Gender Information Value Date Recorded Sex Assigned at Not on file Gender Identity Not on file Sexual Orientation Not on file documented as of this encounter Plan of Treatment Upcoming Encounters Date Type Department Care Team (Late st Contact Info) Description 07/13/2024 10:00 AM [facility] Hospital Encounter [place] [address] Arrived documented as of this encounter Procedures Procedure Name Priority Date/Time Associated Diagnosis Comments MAMMO SCREENING CAD AND JEFFRY BILATERAL Routine 05/17/2017 11:30 AM EDT documented in this encounter Results * Mammo Screen CAD and Jeffry [...] Daniella Denny APRN IMG MAMMO ORDER JOAO documented in this encounter Visit Diagnoses Not on filedocumented in this encounter Care Teams President And Chief Executive Officer Relationship Specialty Start Date End Date Daniella Denny APRN [address] [place] [address] [address] [place] [address] PCP - General 07/21/10 03/10/21 documented as of this encounter
--- OUTSIDE RECORDS SUMMARY | 2024-05-04 01:42 | XMS_ITS | Encounter Summary ---
Author Organization [facility] Address [facility] [place] [address] Care Team Providers Care Ventilating Engineer Name Role Phone TawannameganDaniella Andrez DAILEY Primary Care Provider Reason for Visit * Reason Comments Palpitations Encounter Details Date Type Department Care Team (Late st Contact Info) Description 11/13/2012 9:30 AM EDT Office Visit [address] [address] Daniel Sexton MD [facility] [place] [address] Palpitations (Primary Dx) Social History Tobacco Use Types Packs/Day Years Used Date Smoking Tobacco: Never Assessed Sex and Gender Information Value Date Recorded Sex Assigned at Not on file Gender Identity Not on file Sexual Orientation Not on file documented as of this encounter Progress Notes * Provider, Scanning - 11/21/2012 3:51 PM EDT * Daniel Sexton - 11/13/2012 9:52 AM EDT Scanned note documented in this encounter Plan of Treatment Upcoming Encounters Date Type Department Care Team (Late st Contact Info) Description 07/13/2024 10:00 AM EST Hospital Encounter [place] [address] Arrived documented as of this encounter Visit Diagnoses Diagnosis Palpitations- Primary documented in this encounter Care Teams Ventilating Engineer Relationship Specialty Start Date End Date Daniella Denny, ASIM [address] [facility] [address] [place] [address] PCP - General 07/21/10 03/10/21 documented as of this encounter
--- OUTSIDE RECORDS SUMMARY | 2024-05-04 01:42 | XMS_ITS | Encounter Summary ---
[place] [address] Care Team Providers Care Vp Strategic Planning Name Role Phone Senthil Vicenta ASIM Primary Care Provider [phone] Encounter Details Date Type Department Care Team (Late st Contact Info) Description 07/07/2021 Orders Only Cardiology at [address] [phone] Meagan Gonzalez PA [facility] [place] [address] Persistent atrial fibrillation Social History Tobacco Use [...] AM EST Hospital Encounter Non-[place] [phone] Arrived documented as of this encounter Results * EKG 12 Lead (07/16/2021 9:42 AM EST) Ventricular rate 63 BPM MUSE SYSTEM QRS Duration 82 ms MUSE SYSTEM Q-T Interval 402 ms MUSE SYSTEM QTC Calculated (Bezet) 411 ms MUSE SYSTEM Calculated R [place] 17 degrees MUSE SYSTEM Calculated T [place] -48 degrees MUSE SYSTEM INTERPRETATION Atrial fibrillation Low voltage QRS Cannot rule out Anterior infarct (cited on or before 16-JUL-2021) Abnormal ECG When compared with ECG of 11-JUN-2021 11:12, Nonspecific T wave abnormality now evident in Anterior leads Confirmed by MD AGRAWAL ARMIN ([id number]) on 07/16/2021 2:49:15 PM MUSE SYSTEM 07/16/2021 9:42 AM EST 07/16/2021 2:49 PM EST Naveen Diaz MD ECG ORDERABLES Performing Organization Address City/[facility]/ZIP Co de Phone Number MUSE SYSTEM * Magnesium (07/16/2021 9:25 AM EST) Magnesium 0.88 0.69 - 1.07 mmol/L [facility] Blood 07/16/2021 9:25 AM EST 07/16/2021 9:50 AM EST Narrative Resulting Agency Comment Spec In Lab Naveen Diaz MD CHEMISTRY ORDERABLES Performing Organization Address City/[facility] Co de Phone Number [facility] [place] [address] * Basic Metabolic Panel (non-fasting) (07/16/2021 9:25 AM EST) Glucose 118 65 - 199 mg/dL [facility] Comment:Diabetes: >=200 mg/d L plus symptoms Blood Urea Nitrogen 16 8 - 18 mg/dL [facility] Creatinine 0.93 0.70 - 1.20 mg/dL [facility] Sodium 140 135 - 145 mmol/L [facility] Potassium 4.5 3.5 - 5.0 mmol/L [facility] Comment: Please note: ??Patients with WBC >100,000 may have falsely elevated Potassium levels. ??For accurate Potassium quantification in these patients send serum separator tube (gold top) for subsequent determinations. ??Contact the Clinical Chemistry Laboratory if there are any questions. Chloride 105 98 - 107 mmol/L [facility] Carbon Dioxide 25 22 - 31 mmol/L [facility] Anion Gap 10 5 - 15 mmol/L [facility] Calcium 9.7 8.5 - 10.5 mg/dL [facility] Est Glomerular Filtration Rate 60 >=60 mL/min/1. 73 m?? [facility] Comment: This patient? s estimated glomerular filtration rate (eGFR) is between 60 mL/min/1.73 m2 (patients with less muscle mass) and 70 mL/min/1.73 m2 (patients with more muscle mass) as determined by the CKD-EPI equation. Assessment of eGFR is not appropriate when creatinine concentrations are rapidly changing. For clinical decisions where creatinine clearance will affect therapy, a 24-hour urine creatinine clearance may be advised. Assignment of CKD stage 1 - 5 for patients with an eGFR near the transition point between stages may be based on clinical assessment of muscle mass and symptoms in addition to eGFR. Blood 07/16/2021 9:25 AM EST 07/16/2021 9:50 AM EST Narrative Resulting Agency Comment Spec In Lab Naveen Diaz MD CHEMISTRY ORDERABLES [facility] [place] [address] documented in this encounter Visit Diagnoses Diagnosis Persistent atrial fibrillation Atrial fibrillation documented in this encounter Care Teams Vp Strategic Planning Relationship Specialty Start Date End Date Vicenta Ndiaye APRN [address] [place] [address] PCP - General Family Medicine 03/11/21 documented as of this encounter
--- OUTSIDE RECORDS SUMMARY | 2024-05-04 01:42 | XMS_ITS | Encounter Summary ---
[place] [address] Care Team Providers Care Game Room Attendant Name Role Phone TawannameganDaniella Andrez DAILEY Primary Care Provider Encounter Details Date Type Department Care Team (Late st Contact Info) Description 09/23/2009 Abstract Radiology and Cardiology Results [address] [place] [phone] Nlh Conversion, Results Provider, Social History [...] AM EST Hospital Encounter Non-Invasive [place] [phone] Arrived documented as of this encounter Procedures Procedure Name Priority Date/Time Associated Diagnosis Comments HEPATITIS C RNA, QUANTITATIVE, PCR Routine 09/23/2009 8:38 AM EST documented in this encounter Results * (ABNORMAL) Hepatitis C RNA, quantitative, PCR (09/23/2009 8:38 AM EST) Hepatitis C RNA-PCR < 43(Externa l Lab) <43 IU/mL [facility] CONVERSION Hepatitis C RNA-PCR < 1.63(Exter nal Lab) <1.63 log10 IU/mL [facility] CONVERSION 09/23/2009 8:38 AM EST Results Provider Nlh Conversion MD NEFTALY FLOWERS ORDERABLES NL CONVERSION documented in this encounter Visit Diagnoses Not on filedocumented in this encounter Care Teams Game Room Attendant Relationship Specialty Start Date End Date Daniella Denny, RESIDENTIAL TREATMENT SPECIALIST [address] [facility] [address] [place] [address] PCP - General 07/21/10 03/10/21 documented as of this encounter
--- OUTSIDE RECORDS SUMMARY | 2024-05-04 01:42 | XMS_ITS | Encounter Summary ---
[place] [address] Care Team Providers Care Dehydrator Operator Name Role Phone Daniella Denny MECHANICAL CAD DRAFTER Primary Care Provider Encounter Details Date Type Department Care Team (Late st Contact Info) Description 06/21/[address] [phone] Daniella Denny, MECHANICAL CAD DRAFTER [address] [address] Social History Tobacco Use Types Packs/Day Years [...] [facility] Hospital Encounter Non[place] [address] Arrived documented as of this encounter Procedures Procedure Name Priority Date/Time Associated Diagnosis Comments MAMMO DIAGNOSTIC CAD AND JEFFRY LEFT Routine 06/21/2017 12:36 PM EDT documented in this encounter Results * Mammo Digital Unilateral Left Diagnostic W/Cad And Jeffry (06/21/2017 12:36 PM EDT) Anatomical Region Laterality Modality Breast Left Mammography 06/21/2017 12:3 6 PM EDT Impressions 06/21/2017 1:11 PM EDT Asymmetry identified on the screening examination most likely represents the overlap of normal stromal tissue/fibroglandular elements. BI-RADS 1. Recommendation: Return to routine screening based on age and risk factors. Narrative 06/21/2017 1:11 PM EDT EXAMINATION: MAMMO DIAGNOSTIC CAD AND JEFFRY LEFT CLINICAL HISTORY: f/u abn lt breast addl views mammo TECHNIQUE: 2-D 3-D left breast CC and MLO spot compression views as long as 2-D 3-D left breast true lateral COMPARISON: Prior screening examinations, the most recent being May 17, 2017. FINDINGS: The subtle asymmetry identified in the upper inner left breast 6.5 cm from the nipple completely effaces with the application of compression. No associated distortion or microcalcifications. Procedure Note Shahbaz Garner MD - 06/21/2017 EXAMINATION: MAMMO DIAGNOSTIC CAD AND JEFFRY LEFT CLINICAL HISTORY: f/u abn lt breast addl views mammo TECHNIQUE: 2-D 3-D left breast CC and MLO spot compression views as longas 2-D 3-D left breast true lateral COMPARISON: Prior screening examinations, the most recent being 2016. FINDINGS: The subtle asymmetry identified in the upper inner left breast 6.5 cm fromthe nipple completely effaces with the application of compression. Noassociated distortion or microcalcifications. IMPRESSION Asymmetry identified on the screening examination most likely representsthe overlap of normal stromal tissue/fibroglandular elements. BI-RADS 1. Recommendation: Return to routine screening based on age and riskfactors. Daniella Denny APRN IMNazia MAMMO ORDER JOAO documented in this encounter Visit Diagnoses Not on filedocumented in this encounter Care Teams Dehydrator Operator Relationship Specialty Start Date End Date Daniella Denny APRN [address] [place] [address] [address] [place] [address] PCP - General 07/21/10 03/10/21 documented as of this encounter
--- OUTSIDE RECORDS SUMMARY | 2024-05-04 01:42 | XMS_ITS ---
Author Organization Unknown Address [address] [place] [phone] Phone Care Team Providers Care Explosives Truck Driver Name Role Phone SHAHIDA Hobbs Attending Unavailable Results MM SCREENING BILAT MAMMO W T STEPHY Epstein CAD - Completed: 10/03/2023 13:47 LOINC: [place], [place] [address] PACS CUSTOMS INVESTIGATOR REPORT Patient Name: GIOVANNI REDDY MRN: Sex: : Age: [id number] F 1945 78 Account: Accession: Admit: StayType: [id number] O/P Ordered: Order ID: Submitted: Ordering Provider: 10/03/2023 13:27 [id number] CALLIE COHEN Completed: Technologist: Resulted: 10/03/2023 13:47 BMM 10/03/2023 13:56 Study Description: MM SCREENING BILAT MAMMO W AMALIA W CAD Study Reason: Screening Comparison: 2013 through 2021 TECHNIQUE: Bilateral digital 2D CC and MLO views including tomosythesis and CAD. FINDINGS: The breasts are composed of mainly fatty density , Breast Density category A. No suspicious masses or suspicious microcalcifications are seen. No skin thickening or abnormal axillary lymph nodes are seen. There has been no significant change from prior exams. IMPRESSION: BI-RADS Category 1, Negative mammogram Yearly screening mammography is recommended. Breast Density - Category A, fatty density. A negative radiographic report should not delay biopsy if a dominant or clinically suspicious mass is present. Up to ten percent of cancers are not identified on mammography. A negative report may reinforce clinical impression. Adenosis and dense breasts may obscure an underlying neoplasm. False positive reports average 6 to 10%. Patient will receive a letter notifying them of these results. Report Digitally Signed by Suze Tuttle on 10/03/2023 01:56 PM EST Social History Type Status Start Date End Date Code Code Syst em Smoking History Never smoker (Never Smoked) [id number] SNOMED CT Sex Female Hospital Discharge Instructions Should you have any questions prior to discharge, please contact a member of your healthcare team. If you have left the hospital and have any questions, please contact your primary care physician. Reason For Referral No Data Found Plan of Treatment MM SCREEN BILAT 10/03/2023 MM SCREEN BILAT 11/24/2021 Encounters Encounter Diagnosis Start Date Code Code Sys tem Screening mammography 10/03/2023 [id number] Pinpoint MD -CT Personal Care Team Section Performer Name Performer Role Active Date Inactive Da te
--- OUTSIDE RECORDS SUMMARY | 2024-05-04 01:42 | XMS_ITS | Encounter Summary ---
[place] [address] Care Team Providers Care Inspector Golf Ball Name Role Phone Vicenta Ndiaye APRN Primary Care Provider [phone] Reason for Visit * Auth/Cert Specialty Diagnoses / Procedures Referred By Contac t Referred To Contact Diagnoses atrial fibrillation Procedures PRO CARDIOVERSION ELECTIVE ARRHYTHMIA EXTERNAL CARDIOVERSION-ELECTIVE (WRVU 2.25) Referral ID Status Reason Start Date Expiration Date Visits Re quested Visits Authorized [id number] 1 1 Encounter Details Date Type Department Care Team (Late st Contact Info) Description 07/16/2021 12:14 PM EST Anesthesia Event [place] [address] George Craft MD [facility] DR [place] [address] Richa Sweeney CRNA [facility] [place] [address] Anesthesia Record Procedure Summary Procedure Name Responsible Anesthesiologist Anesthesia Start Time Anesthesia Stop Time CARDIOVERSION-ELECT NORMA (WRVU 2) George Craft MD 07/16/21 1214 07/16/21 1226 Events Date Time Event Comment 07/16/2021 1156 1214 AN Verify 1214 Start 1214 An Start Data 1217 Anesthesia Ready 1219 AN Defib Cardioversion a t 200j with conversion to second degree AVB mobitz 1 1226 an stop data 1226 Recovery or ICU Handoff Consuelo ent care was transferred to the destination unit staff after review of the patient's medical history, current anesthetic/surgical status and plan, according to the Provider Handoff Checklist. 1226 Stop Meds Name Total IV Lidocaine 100 mg lactated ringers infusion 0 mL * Agents No agents on file. * Blood No blood administrations on file. Lines, Drains, and Airways Type Details Placement Removal (RETIRED) Peripheral IV Line - Single Lumen 07/16/21; 1213; metacarpal vein (top of hand), left; 22 gauge; distraction, intradermal injection, tolerated well, appears comfortable; 07/16/21; 1339 07/16/21 1213 by Yesy Shelley RN 07/16/21 1339 by Rhonda Harper, MIKE documented in this encounter Social History Tobacco Use Types Packs/Day Years Used Date Smoking Tobacco: Former Smokeless Tobacco: Never Comments:college student for a few months Sex and Gender Information Value Date Recorded Sex Assigned at Not on file Gender Identity Not on file Sexual Orientation Not on file documented as of this encounter OR Notes * Anesthesia Postprocedure Evaluation - George Craft MD - 07/16/2021 2:33 PM EST Department of Anesthesiology Post-procedure Note Patient: Elena Dave Procedure Summary Date: 07/16/21 Room / Location: [facility] Anesthesia Start: 1214 Anesthesia Stop: 1226 Procedure: CARDIOVERSION-ELECTIVE (WRVU 2.25) (N/A ) Diagnosis: Persistent atrial fibrillation (atrial fibrillation) Surgeons: Janett Vidal MD Responsible Provider: George Craft MD Anesthesia Type: MAC ASA Status: 3 All Anesthesia Providers: Anesthesiologist: George Craft MD NAME PLATE STAMPER: Richa Sweeney CRNA Vitals Value Taken Time BP 129/63 07/16/21 1315 Temp 37.6 ??C (99.7 ??F) 07/16/21 1339 Pulse 50 07/16/21 1325 Resp 24 07/16/21 1325 SpO2 94 % 07/16/21 1324 Pain Level 0 07/16/21 1231 Vitals shown include unvalidated device data. Patient Location: PACU/[facility] Level of Consciousness: Awake and Alert Pain Management: Satisfactory Analgesia PONV: None Cardiovascular Status: At Baseline and Hemodynamically Stable Respiratory Status: At Baseline and Room Air Postoperative Fluid Status: Intravascular EUvolemia Possible Anesthetic Complications: NONE apparent at time of evaluation Final Primary Anesthesia Type: MAC (The anesthetic type performed was the same as planned.) Comments: George Craft MD * Anesthesia Preprocedure Evaluation - George Craft MD - 07/16/2021 7:40 AM EST Pre-Anesthesia Evaluation for: Elena Dave a 75 y.o. female. Procedure(s): CARDIOVERSION-ELECTIVE (VU 2.25) Patient Active Problem List Diagnosis ??? Atrial fibrillation ??? Hypertension ??? Hypothyroidism No past medical history on file. No past surgical history on file. Social History Tobacco Use ??? Smoking status: Former Smoker ??? Smokeless tobacco: Never Used ??? Tobacco comment: college student for a few months Substance Use Topics ??? Alcohol use: Not on file Social History Substance and Sexual Activity Drug Use Not on file Allergies Allergen Reactions ??? Diflunisal ??? Ezetimibe ??? Quinapril Medications: MAR and/or home medications have been reviewed. Physical Exam: Preprocedure Vitals Current as of 07/16/21 0740 No BP, pulse, respiration, SpO2, or temperature recorded. Height: 160 cm (5' 3) (06/11/21) Weight: 84.8 kg (187 lb) (06/11/21) BMI: 33.12 IBW: 52.4 kg (115 lb 7.7 oz) Airway Assessment: Mallampati: II TM distance: >3 FB Neck ROM: full Cardiovascular Assessment: Rhythm: irregular Pulmonary Assessment: pulmonary exam normal Dental Assessment: - normal exam Misc Assessment: IV access: Peripheral line Last Filed Perioperative Cognitive Screening None Anesthesia Plan: ASA 3 MAC, with a(n) intravenous induction 75yo 83kg (BMI 32) F s/f cardioversion for afib PMH significant for afib (on rivaroxaban), HTN, hypothyroid. No previous anesthetic records available for review, reports last GA was when she was in her 20's, denies problems at that time. Denies family history of issues with anesthesia. Echo in January w/ EF 55-60%. Plan: MAC, PIV access, standard ASA monitors The patient was informed of the risks, benefits and alternatives of anesthesia. These risks included, but were not limited to, post-operative nausea and/or vomiting, pain, sore throat, dental/lip trauma, and other rare but serious complications such as major organ damage, awareness, severe allergicreactions, position-related nerve injuries, and need blood transfusions. All questions sought and answered. Consent was signed and placed in chart. George Craft MD Insurance Account Assistant Region - Intrathoracic Cardiac Informed Consent: Anesthetic plan and risks discussed with patient. Plan discussed with attending and NAME PLATE STAMPER. Anesthesia Screening documented in this encounter Plan of Treatment Upcoming Encounters Date Type Department Care Team (Late st Contact Info) Description 07/13/2024 10:00 AM EST Hospital Encounter Non-[place] [phone] Arrived documented as of this encounter Visit Diagnoses Not on filedocumented in this encounter Administered Medications Inactive Administered Medications - up to 3 most recent administrations Medication Order MAR Action Action Date Dose Rate Site lactated ringers infusion 1,000 mL, at 100 mL/hr, Intravenous, CONTINUOUS, Starting on Maria L 07/16/21 at 1200, Until Maria L 07/16/21 at 1340, Day of Surgery (Day of Procedure) New Bag 07/16/2021 12:02 PM EST lidocaine (pf) (Xylocaine) (20 mg/mL) 2% injection syringe Intravenous, PRN, Starting on Maria L 07/16/21 at 1218, Until Maria L 07/16/21 at 1226, Anesthesia Intra-op, Routine Given 07/16/2021 12:18 PM EST 100 mg documented in this encounter Care Teams Inspector Golf Ball Relationship Specialty Start Date End Date Vicenta Ndiaye APRN [address] [place] [address] PCP - General Family Medicine 03/11/21 documented as of this encounter
--- OUTSIDE RECORDS SUMMARY | 2024-05-04 01:42 | XMS_ITS | Encounter Summary ---
[place] [address] Care Team Providers Care Operator Engineer Name Role Phone Barrydinh Daniella Andrez DAILEY Primary Care Provider Encounter Details Date Type Department Care Team (Late st Contact Info) Description 11/18/2014 Abstract Radiology and Cardiology Results [address] [place] [phone] [facility] Conversion, Results Provider, Social History Tobacco [...] AM EST Hospital Encounter Non[place] [phone] Arrived documented as of this encounter Procedures Procedure Name Priority Date/Time Associated Diagnosis Comments U ALBUMIN/CRE RATIO Routine 11/18/2014 8 :04 AM EDT HEPATITIS C RNA, QUANTITATIVE, PCR Routine 11/18/2014 8:04 AM EDT VITAMIN D, 25-HYDROXY Routine 11/18/2014 8:04 AM EDT CBC (WITH DIFF) Routine 11/18/2014 8:04 AM EDT TSH Routine 11/18/2014 8:04 AM EDT HEMOGLOBIN A1C Routine 11/18/2014 8:04 AM EDT LIPID PANEL (REFLEX DIRECT LDL) Routine 11/18/2014 8:04 AM EDT COMPREHENSIVE METABOLIC PANEL Routine 11/18/2014 8:04 AM EDT documented in this encounter Results * (ABNORMAL) Comprehensive metabolic panel (non-fasting) (11/18/2014 8:04 AM EDT) Sodium 140(Exter nal Lab) 137 - 145 mmol/L [facility] CONVERSION Chloride 102(Exter nal Lab) 98 - 107 mmol/L [facility] CONVERSION Glucose 96([facility]) 65 - 99 mg/dL [facility] CONVERSION Alkaline Phosphatase 60([facility]) 38 - 126 U/L [facility] CON[facility] Est Glomerular Filtration Rate 60([facility]) >=60 mL/min/1. 73m2 [facility] CONVERSION eGFR 60([facility]) >=60 mL/min/1. 73m2 [facility] CONVERSION Alanine Aminotransferase 36([facility]) 13 - 69 U/L [facility] Aspartate Aminotransferase 28([facility]) 15 - 46 U/L [facility] Carbon Dioxide 27([facility]) 22.0 - 30.0 mmol/L [facility] Blood Urea Nitrogen 18([facility]) 7 - 20 mg/dL [facility] CONVERSION Calcium 9.7(Exter nal Lab) 8.4 - 10.2 mg/dL [facility] CONVERSION Protein, Total 6.9(Exter nal Lab) 6.3 - 8.2 g/dL [facility] CONVERSION Albumin 4.3(Exter nal Lab) 3.5 - 5.0 g/dL [facility] CONVERSION Potassium 4(Externa l Lab) 3.6 - 5.0 mmol/L [facility] CONVERSION Bilirubin, Total 0.8(Exter nal Lab) 0.2 - 1.3 mg/dL [facility] CONVERSION Creatinine 0.8(Exter nal Lab) 0.52 - 1.04 mg/dL [facility] CONVERSION 11/18/2014 8:04 AM EDT Results Provider Nlh Conversion MD ARIANA CALIX ORDERABLES [facility] CONVERSION * (ABNORMAL) TSH (11/18/2014 8:04 AM EDT) Thyroid Stimulating Hormone 1.547(Ext ernal Lab) 0.460 - 4.680 uIU/mL [facility] CONVERSION 11/18/2014 8:04 AM EDT Results Provider Nlh Conversion MD ARIANA CALIX ORDERABLES [facility] CONVERSION * (ABNORMAL) Hemoglobin A1c (11/18/2014 8:04 AM EDT) Pathologist [facility] Hemoglobin A1c 5.8(ExtH) 4.3 - 5.6 % [facility] CONVERSION Estimated Average Glucose 120([facility]) mg/dL [facility] CONVERSION 11/18/2014 8:04 AM EDT Results Provider Nlh Conversion MD ARIANA CALIX ORDERABLES [facility] CONVERSION * (ABNORMAL) CBC (with Diff) (11/18/2014 8:04 AM EDT) Pathologist [facility] Platelet 197(Exter nal Lab) 140 - 440 thou/mm3 [facility] CONVERSION Mean Cell Volume 91([facility]) 81 - 97 fl [facility] CONVERSION Neutrophil % 47.8(Exte rnal Lab) % [facility] CONVERSION Lymph % 42.9(Exte rnal Lab) % [facility] CONVERSION Hematocrit 41([facility]) 37 - 47 % [facility] CONVERSION Mean Cell Hemoglobin Concentration 33([facility]) 32 - 36 % [facility] CONVERSION Mean Cell Hemoglobin 30([facility]) 27 - 32 pg [facility] CONVERSION Hemoglobin 13.5(Exte rnal Lab) 12.0 - 16.0 gm/dL [facility] CONVERSION RDW coefficient of variation 13([facility]) 11.5 - 15.5 % [facility] CONVERSION Monocyte % 6.5(Exter nal Lab) % [facility] CONVERSION Red Blood Cell 4.5(Exter nal Lab) 4.2 - 5.4 mil/mm3 [facility] CONVERSION White Blood Cell 3.5(ExtL) 4.5 - 10.0 thou/mm3 [facility] CONVERSION Eos % 2(Externa l Lab) % [facility] CONVERSION Neutrophil Absolute 1.7(Exter nal Lab) 1.6 - 6.5 thou/mm3 [facility] CONVERSION Lymphocytes Abs 1.5(Exter nal Lab) 1.2 - 3.4 thou/mm3 [facility] CONVERSION Basophil % 0.8(Exter nal Lab) % [facility] CONVERSION Monocyte Abs 0.2(Exter nal Lab) 0.1 - 0.6 thou/mm3 [facility] CONVERSION Eosinophils Abs 0.1(Exter nal Lab) 0.0 - 0.2 thou/mm3 [facility] CONVERSION Baso Absolute 0(Externa l Lab) 0.0 - 0.1 thou/mm3 [facility] CONVERSION 11/18/2014 8:04 AM EDT Results Provider Nlh Conversion HEMAT OLOGY ORDERABLES [facility] CONVERSION * (ABNORMAL) U Albumin/Cre Ratio (11/18/2014 8:04 AM EDT) Albumin / Creatinin Ratio, Urine 38(ExtH) <=29 ug/mg [facility] CONVERSION Creatinine, Urine 22.2(Exter nal Lab) mg/dl [facility] CONVERSION Albumin, Urine 8.4([facility]) mg/L [facility] CONVERSION 11/18/2014 8:04 AM EDT Results Provider Nlh Conversion URINE ORDERABLES [facility] CONVERSION * (ABNORMAL) Lipid Panel (Reflex Direct LDL) (11/18/2014 8:04 AM EDT) LDL Cholesterol 76([facility]) <=99 mg/dL [facility] CONVERSION HDL Cholesterol 57([facility]) >=40 mg/dL [facility] CONVERSION Cholesterol/HDL Ratio 2.9(Exter nal Lab) ratio [facility] CONVERSION Cholesterol, Total 164(Exter nal Lab) <=199 mg/dL [facility] CONVERSION Triglyceride 154(ExtH) <=149 mg/dL [facility] CONVERSION 11/18/2014 8:04 AM EDT Results Provider Nlh Conversion MD ARIANA CALIX ORDERABLES [facility] CONVERSION * (ABNORMAL) Hepatitis C RNA, quantitative, PCR (11/18/2014 8:04 AM EDT) Hepatitis C RNA-PCR < 15 NOT DETECTED(E xternal Lab) <15 IU/mL [facility] CONVERSION Hepatitis C RNA-PCR < 1.18 NOT DETECTED(E xternal Lab) <1.18 LogIU/mL [facility] CONVERSION 11/18/2014 8:04 AM EDT Results Provider Nlh Conversion MD NEFTALY FLOWERS ORDERABLES [facility] CONVERSION * (ABNORMAL) Vitamin D, 25-Hydroxy (11/18/2014 8:04 AM EDT) Vit D, 25-Hydroxy 47(Externa l Lab) 30 - 100 ng/mL [facility] CONVERSION 11/18/2014 8:04 AM EDT Results Provider Nlh Conversion MD ARIANA CALIX ORDERABLES [facility] CONVERSION documented in this encounter Visit Diagnoses Not on filedocumented in this encounter Care Teams Operator Engineer Relationship Specialty Start Date End Date Daniella Denny APRN [address] [place] [address] [address] [place] [address] PCP - General 07/21/10 03/10/21 documented as of this encounter
--- OUTSIDE RECORDS SUMMARY | 2024-05-04 01:42 | XMS_ITS | Encounter Summary ---
Author Organization [facility] [place] [address] Care Team Providers Care Surgery Nurse Name Role Phone Daniella Denny Andrez DAILEY Primary Care Provider Reason for Visit * Reason Comments Palpitations Encounter Details Date Type Department Care Team (Late st Contact Info) Description 11/29/2011 8:30 AM EDT Office Visit [address] [address] Daniel Sexton MD [facility] [place] [address] Palpitations (Primary Dx) Social History Tobacco Use Types Packs/Day Years Used Date Smoking Tobacco: Never Assessed Sex and Gender Information Value Date Recorded Sex Assigned at Not on file Gender Identity Not on file Sexual Orientation Not on file documented as of this encounter Progress Notes * Wilfredo Paredes - 12/13/2011 10:37 AM EDT * Daniel Sexton - 11/29/2011 8:36 AM EDT Subjective: Patient ID: Elena Dave is a 66 y.o. female. HPI ROS Objective: Physical Exam Assessment and Plan: No problem-specific visit notes found for this encounter. Scanned note documented in this encounter Plan of Treatment Upcoming Encounters Date Type Department Care Team (Late st Contact Info) Description 07/13/2024 10:00 AM EST Hospital Encounter Non[place] [address] Arrived documented as of this encounter Visit Diagnoses Diagnosis Palpitations- Primary documented in this encounter Care Teams Surgery Nurse Relationship Specialty Start Date End Date Daniella Denny, ANIMAL ASSISTED THERAPIST [address] [place] [address] [address] [place] [address] PCP - General 07/21/10 03/10/21 documented as of this encounter
--- OUTSIDE RECORDS SUMMARY | 2024-05-04 01:42 | XMS_ITS | Encounter Summary ---
[place] [address] Care Team Providers Care Hydraulic Engineer Name Role Phone BarrydinhDaniella Andrez DAILEY Primary Care Provider Encounter Details Date Type Department Care Team (Late st Contact Info) Description 11/26/2016 Abstract Radiology and Cardiology Results [address] [place] [phone] [facility] Conversion, Results Provider, Social History Tobacco Use [...] AM EST Hospital Encounter Non-Invasive [place] [phone] Arrived documented as of this encounter Procedures Procedure Name Priority Date/Time Associated Diagnosis Comments HEPATITIS C ANTIBODY Routine 11/26/2016 7:58 AM EDT U ALBUMIN/CRE RATIO Routine 11/26/2016 7 :58 AM EDT VITAMIN D, 25-HYDROXY Routine 11/26/2016 7:58 AM EDT CBC (WITH DIFF) Routine 11/26/2016 7:58 AM EDT TSH Routine 11/26/2016 7:58 AM EDT MAGNESIUM Routine 11/26/2016 7:58 AM EDT HEMOGLOBIN A1C Routine 11/26/2016 7:58 AM EDT LIPID PANEL (REFLEX DIRECT LDL) Routine 11/26/2016 7:58 AM EDT COMPREHENSIVE METABOLIC PANEL Routine 11/26/2016 7:58 AM EDT documented in this encounter Results * (ABNORMAL) CBC (with Diff) (11/26/2016 7:58 AM EDT) Platelet 220(Exter nal Lab) 140 - 440 thou/mm3 [facility] CONVERSION Mean Cell Volume 89([facility]) 81 - 97 fl [facility] CONVERSION Neutrophil % 46.2(Exte rnal Lab) % [facility] CONVERSION Lymph % 44.2(Exte rnal Lab) % [facility] CONVERSION Hematocrit 41([facility]) 37 - 47 % [facility] CONVERSION Mean Cell Hemoglobin Concentration 33([facility]) 32 - 36 % [facility] CONVERSION Mean Cell Hemoglobin 29([facility]) 27 - 32 pg [facility] CONVERSION Hemoglobin 13.6(Exte rnal Lab) 12.0 - 16.0 gm/dL [facility] CONVERSION RDW coefficient of variation 13([facility]) 11.5 - 15.5 % [facility] CONVERSION Monocyte % 6.5(Exter nal Lab) % [facility] CONVERSION Red Blood Cell 4.6(Exter nal Lab) 4.2 - 5.4 mil/mm3 [facility] CONVERSION White Blood Cell 3.9(ExtL) 4.5 - 10.0 thou/mm3 [facility] CONVERSION Eos % 2.6(Exter nal Lab) % [facility] CONVERSION Neutrophil Absolute 1.8(Exter nal Lab) 1.6 - 6.5 thou/mm3 [facility] CONVERSION Lymphocytes Abs 1.7(Exter nal Lab) 1.2 - 3.4 thou/mm3 [facility] CONVERSION Basophil % 0.5(Exter nal Lab) % [facility] CONVERSION Monocyte Abs 0.3(Exter nal Lab) 0.1 - 0.6 thou/mm3 [facility] CONVERSION Eosinophils Abs 0.1(Exter nal Lab) 0.0 - 0.2 thou/mm3 [facility] CONVERSION Baso Absolute 0(Externa l Lab) 0.0 - 0.1 thou/mm3 [facility] CONVERSION 11/26/2016 7:58 AM EDT Results Provider Nlh Conversion MD RODRIGUEZ OLOGY ORDERABLES [facility] CONVERSION * (ABNORMAL) TSH (11/26/2016 7:58 AM EDT) Thyroid Stimulating Hormone 3.435(Ext ernal Lab) 0.460 - 4.680 uIU/mL [facility] CONVERSION 11/26/2016 7:58 AM EDT Results Provider Nlh Conversion CHEMMathew STRAashish ORDERABLES [facility] CONVERSION * (ABNORMAL) Comprehensive metabolic panel (non-fasting) (11/26/2016 7:58 AM EDT) Sodium 140(Exter nal Lab) 137 - 145 mmol/L [facility] CONVERSION Glucose 108(ExtH) 65 - 99 mg/dL [facility] CONVERSION Chloride 100(Exter nal Lab) 98 - 107 mmol/L [facility] CONVERSION Alkaline Phosphatase 72([facility]) 38 - 126 U/L [facility] CONVERSION Est Glomerular Filtration Rate 60([facility]) >=60 mL/min/1. 73m2 [facility] CONVERSION eGFR 60([facility]) >=60 mL/min/1. 73m2 [facility] CONVERSION Alanine Aminotransferase 39([facility]) 13 - 69 U/L [facility] CONVERSION Carbon Dioxide 27([facility]) 22.0 - 30.0 mmol/L [facility] CONVERSION Aspartate Aminotransferase 24([facility]) 15 - 46 U/L [facility] CONVERSION Blood Urea Nitrogen 18([facility]) 7 - 20 mg/dL [facility] CONVERSION Calcium 10([facility]) 8.4 - 10.2 mg/dL [facility] CONVERSION Protein, Total 7.3(Exter nal Lab) 6.3 - 8.2 g/dL [facility] CONVERSION Potassium 4.3(Exter nal Lab) 3.6 - 5.0 mmol/L [facility] CONVERSION Albumin 4.3(Exter nal Lab) 3.5 - 5.0 g/dL [facility] CONVERSION Bilirubin, Total 0.8(Exter nal Lab) 0.2 - 1.3 mg/dL [facility] CONVERSION Creatinine 0.7(Exter nal Lab) 0.52 - 1.04 mg/dL [facility] CONVERSION 11/26/2016 7:58 AM EDT Results Provider Nlh Conversion CHEMMathew CALIX ORDERABLES [facility] CONVERSION * (ABNORMAL) U Albumin/Cre Ratio (11/26/2016 7:58 AM EDT) Albumin / Creatinin Ratio, Urine 76(ExtH) 0 - 29 mcg/mg Cr [facility] CONVERSION Creatinine, Urine 54(Externa l Lab) mg/dL [facility] CONVERSION Albumin, Urine 40.9(Exter nal Lab) mg/L [facility] CONVERSION 11/26/2016 7:58 AM EDT Results Provider Nlh Conversion URINE ORDERABLES Performing Organization Address [facility] Co de Phone Number [facility] CONVERSION * (ABNORMAL) Lipid Panel (Reflex Direct LDL) (11/26/2016 7:58 AM EDT) Pathologist [facility] Lipid Interpretation See Note(Exte rnal Lab) [facility] CONVERSION LDL Cholesterol 58([facility]) <=190 mg/dL [facility] CONVERSION HDL Cholesterol 55([facility]) >=40 mg/dL [facility] CONVERSION Cholesterol/HDL Ratio 2.5(Exter nal Lab) ratio [facility] CONVERSION Cholesterol, Total 136(Exter nal Lab) <=239 mg/dL [facility] CONVERSION Triglyceride 117(Exter nal Lab) <=199 mg/dL [facility] CONVERSION 11/26/2016 7:58 AM EDT Results Provider Nlh Conversion CHEMMathew STRAashish ORDERABLES [facility] CONVERSION * (ABNORMAL) Magnesium (11/26/2016 7:58 AM EDT) Magnesium 2(External Lab) 1.6 - 2.3 mg/dL [facility] CONVERSION 11/26/2016 7:58 AM EDT Results Provider Nlh Conversion MD ARIANA CALIX ORDERABLES [facility] CONVERSION * (ABNORMAL) Hepatitis C Antibody (11/26/2016 7:58 AM EDT) Pathologist [facility] Hepatitis C Antibody Negative(E xternal Lab) Negative [facility] CONVERSION 11/26/2016 7:58 AM EDT Results Provider Nlh Conversion MD ARIANA CALIX ORDERABLES [facility] CONVERSION * (ABNORMAL) Vitamin D, 25-Hydroxy (11/26/2016 7:58 AM EDT) Pathologist [facility] Vit D, 25-Hydroxy 41(Externa l Lab) 30 - 100 ng/mL [facility] CONVERSION 11/26/2016 7:58 AM EDT Results Provider Nlh Conversion MD ARIANA CALIX ORDERABLES [facility] CONVERSION * (ABNORMAL) Hemoglobin A1c (11/26/2016 7:58 AM EDT) Pathologist [facility] Estimated Average Glucose See note(Exter nal Lab) mg/dL [facility] CONVERSION Hemoglobin A1c 5.8(ExtH) 4.3 - 5.6 % [facility] CONVERSION 11/26/2016 7:58 AM EDT Results Provider Nlh Conversion MD ARIANA MORAABLES [facility] CONVERSION documented in this encounter Visit Diagnoses Not on filedocumented in this encounter Care Teams Hydraulic Engineer Relationship Specialty Start Date End Date Daniella Denny, PATHOLOGY SUPERVISOR [address] [place] [address] [address] [place] [address] PCP - General 07/21/10 03/10/21 documented as of this encounter
--- OUTSIDE RECORDS SUMMARY | 2024-05-04 01:42 | XMS_ITS | Encounter Summary ---
[place] [address] Care Team Providers Care Addictions Counselor Name Role Phone Daniella Denny APRN Primary Care Provider Encounter Details Date Type Department Care Team (Late st Contact Info) Description 03/27/2013 Abstract Radiology and Cardiology Results [address] [place] [phone] [facility] Conversion, Results Provider, Social History Tobacco [...] AM EST Hospital Encounter Non-Invasive [place] [phone] Arrived documented as of this encounter Procedures Procedure Name Priority Date/Time Associated Diagnosis Comments U ALBUMIN/CRE RATIO Routine 03/27/2013 7 :29 AM EDT HEPATITIS C RNA, QUANTITATIVE, PCR Routine 03/27/2013 7:29 AM EDT CBC (WITH DIFF) Routine 03/27/2013 7:29 AM EDT TSH Routine 03/27/2013 7:29 AM EDT HEMOGLOBIN A1C Routine 03/27/2013 7:29 AM EDT LIPID PANEL (REFLEX DIRECT LDL) Routine 03/27/2013 7:29 AM EDT COMPREHENSIVE METABOLIC PANEL Routine 03/27/2013 7:29 AM EDT documented in this encounter Results * (ABNORMAL) CBC (with Diff) (03/27/2013 7:29 AM EDT) Platelet 210(Exter nal Lab) 140 - 440 thou/mm3 [facility] CONVERSION Mean Cell Volume 89([facility] Scudder al Lab) 81 - 97 fl [facility] CONVERSION Neutrophil % 47.5(Exte rnal Lab) 32.0 - 70.0 % [facility] CONVERSION Lymph % 42.3(ExtH ) 22.0 - 40.0 % [facility] CONVERSION Hematocrit 39([facility]) 37 - 47 % [facility] CONVERSION Mean Cell Hemoglobin Concentration 34([facility]) 32 - 36 % [facility] CONVERSION Mean Cell Hemoglobin 30([facility]) 27 - 32 pg [facility] CONVERSION Hemoglobin 13.1(Exte rnal Lab) 12.0 - 16.0 gm/dL [facility] CONVERSION RDW coefficient of variation 13([facility] Sc[facility]) 11.5 - 15.5 % [facility] CONVERSION Monocyte % 6.2(Exter nal Lab) 4.0 - 12.0 % [facility] CONVERSION Red Blood Cell 4.3(Exter nal Lab) 4.2 - 5.4 mil/mm3 [facility] CONVERSION Eos % 3.4(ExtH) 1.0 - 3.0 % [facility] CONVERSION White Blood Cell 3.2(ExtL) 4.5 - 10.0 thou/mm3 [facility] CONVERSION Neutrophil Absolute 1.5(ExtL) 1.6 - 6.5 thou/mm3 [facility] CONVERSION Lymphocytes Abs 1.4(Exter nal Lab) 1.2 - 3.4 thou/mm3 [facility] CONVERSION Basophil % 0.6(Exter nal Lab) 0.0 - 1.0 % [facility] CONVERSION Monocyte Abs 0.2(Exter nal Lab) 0.1 - 0.6 thou/mm3 [facility] CONVERSION Eosinophils Abs 0.1(Exter nal Lab) 0.0 - 0.2 thou/mm3 [facility] CONVERSION Baso Absolute 0(Externa l Lab) 0.0 - 0.1 thou/mm3 [facility] CONVERSION 03/27/2013 7:29 AM EDT Results Provider Nlh Conversion MD MICHAEL PINTO ORDERABLES Performing Organization Address [facility] [[email or web address]] Co de Phone Number NL[facility] CONVERSION * (ABNORMAL) Lipid Panel (Reflex Direct LDL) (03/27/2013 7:29 AM EDT) Cholesterol, Total 221(ExtH) <=199 mg/dL [facility] CONVERSION Triglyceride 215(ExtH) <=149 mg/dL [facility] CONVERSION LDL Cholesterol 121(ExtH) <=99.0 mg/dL [facility] CONVERSION HDL Cholesterol 57([facility] Sc[facility]) 40 - 60 mg/dL [facility] CONVERSION 03/27/2013 7:29 AM EDT Results Provider Nlh Conversion MD ARIANA CALIX ORDERABLES Performing Organization Address [facility] [[email or web address]] Co de Phone Number [facility] CONVERSION * (ABNORMAL) Hepatitis C RNA, quantitative, PCR (03/27/2013 7:29 AM EDT) Hepatitis C RNA-PCR < 43 NOT DETECTED(E xternal Lab) <43 IU/mL [facility] CONVERSION Hepatitis C RNA-PCR < 1.63 NOT DETECTED(E xternal Lab) <1.63 LogIU/mL [facility] CONVERSION 03/27/2013 7:29 AM EDT Results Provider Nlh Conversion MD NEFTALY FLOWERS ORDERABLES Performing Organization Address [facility] [[email or web address]] Co de Phone Number [facility] CONVERSION * (ABNORMAL) U Albumin/Cre Ratio (03/27/2013 7:29 AM EDT) Creatinine, Urine 84.2(Exter nal Lab) mg/dl [facility] CONVERSION Albumin / Creatinin Ratio, Urine 37(ExtH) <=29 ug/mg [facility] CONVERSION Albumin, Urine 30.8(Exter nal Lab) mg/L [facility] CONVERSION 03/27/2013 7:29 AM EDT Results Provider Nlh Conversion URINE ORDERABLES [facility] CONVERSION * (ABNORMAL) Hemoglobin A1c (03/27/2013 7:29 AM EDT) Hemoglobin A1c 5.4(Hand Scud[facility] al Lab) <=6.0 % [facility] CONVERSION 03/27/2013 7:29 AM EDT Results Provider Nlh Conversion MD ARIANA CALIX ORDERABLES [facility] CONVERSION * (ABNORMAL) TSH (03/27/2013 7:29 AM EDT) Thyroid Stimulating Hormone 2.818(Ext ernal Lab) 0.460 - 4.680 uIU/mL [facility] CONVERSION 03/27/2013 7:29 AM EDT Results Provider Nlh Conversion MD ARIANA CALIX ORDERABLES [facility] CONVERSION * (ABNORMAL) Comprehensive metabolic panel (non-fasting) (03/27/2013 7:29 AM EDT) Sodium 143(Exter nal Lab) 137 - 145 mmol/L [facility] CONVERSION Chloride 107(Exter nal Lab) 98 - 107 mmol/L [facility] CONVERSION Glucose 92([facility] Sc[facility] al [facility]) 65 - 99 mg/dL [facility] CONVERSION Alkaline Phosphatase 65([facility] Scud[facility] al [facility]) 38 - 126 U/L [facility] CONVERSION eGFR 60(Hand Scud[facility] al Lab) >=60 mL/min/1. 73m2 [facility] CONVERSION Est Glomerular Filtration Rate 60([facility] Sc[facility] al Lab) >=60 mL/min/1. 73m2 [facility] CONVERSION Alanine Aminotransferase 35([facility] Sc[facility] al [facility]) 13 - 69 U/L [facility] CONVERSION Aspartate Aminotransferase 28([facility] Sc[facility]) 15 - 46 U/L [facility] CONVERSION Carbon Dioxide 25([facility] Sc[facility]) 22.0 - 30.0 mmol/L [facility] CONVERSION Blood Urea Nitrogen 18([facility] Sc[facility] al Lab) 7 - 20 mg/dL [facility] CONVERSION Calcium 9.5(Exter nal Lab) 8.4 - 10.2 mg/dL [facility] CONVERSION Protein, Total 6.7(Exter nal Lab) 6.3 - 8.2 g/dL [facility] CONVERSION Potassium 4.4(Exter nal Lab) 3.6 - 5.0 mmol/L [facility] CONVERSION Albumin 3.8(Exter nal Lab) 3.5 - 5.0 g/dL [facility] CONVERSION Creatinine 0.7(Exter nal Lab) 0.52 - 1.04 mg/dL [facility] CONVERSION Bilirubin, Total 0.5(Exter nal Lab) 0.2 - 1.3 mg/dL [facility] CONVERSION 03/27/2013 7:29 AM EDT Results Provider Nlh Conversion MD ARIANA CALIX ORDERABLES [facility] CONVERSION documented in this encounter Visit Diagnoses Not on filedocumented in this encounter Care Teams Addictions Counselor Relationship Specialty Start Date End Date Daniella Denny, ASIM [address] [place] [address] [address] [place] [address] PCP - General 07/21/10 03/10/21 documented as of this encounter
--- OUTSIDE RECORDS SUMMARY | 2024-05-04 01:42 | XMS_ITS | Encounter Summary ---
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 Overall, multiple blocked PACs and without pauses, patient is asymptomatic. She feel more energetic off the metoprolol but had some brief AF runs. No change to plan at this time . documented in this encounter Plan of Treatment Upcoming Encounters Date Type Department Care Team (Late st Contact Info) Description 07/13/2024 10:00 AM EST Hospital Encounter Non[place] [address] Arrived documented as of this encounter Visit Diagnoses Not on filedocumented in this encounter Care Teams Ginseng Farmer Relationship Specialty Start Date End Date Vicenta Ndiaye APRN [address] [place] [address] PCP - General Family Medicine 03/11/21 documented as of this encounter
--- OUTSIDE RECORDS SUMMARY | 2024-05-04 01:42 | XMS_ITS | Encounter Summary ---
Author Organization Formerly [facility] [place] [address] Care Team Providers Care Hand Printed Circuit Board Assembler Name Role Phone Daniella Denny Andrez DAILEY Primary Care Provider Reason for Visit * Reason Comments Palpitations Encounter Details Date Type Department Care Team (Late st Contact Info) Description 01/10/2012 2:45 PM EDT Office Visit [address] [address] Daniel Sexton MD [facility] [place] [address] Palpitations (Primary Dx) Social History Tobacco Use Types Packs/Day Years Used Date Smoking Tobacco: Never Assessed Sex and Gender Information Value Date Recorded Sex Assigned at Not on file Gender Identity Not on file Sexual Orientation Not on file documented as of this encounter Progress Notes * Wilfredo Paredes - 01/27/2012 10:22 AM EDT * Daniel Sexton - 01/10/2012 3:08 PM EDT Subjective: Patient ID: Elena Dave is a 66 y.o. female. HPI ROS Objective: Physical Exam Assessment and Plan: No problem-specific visit notes found for this encounter. Scanned note documented in this encounter Procedure Notes * Provider, Scanning - 01/25/2012 1:47 PM EDTAssociated Order(s): SCAN DOC: ECHO documented in this encounter Plan of Treatment Upcoming Encounters Date Type Department Care Team (Late st Contact Info) Description 07/13/2024 10:00 AM EST Hospital Encounter Non[place] [address] Arrived documented as of this encounter Procedures Procedure Name Priority Date/Time Associated Diagnosis Comments ECHO SCAN (SCAN) 01/25/2012 1:47 PM EDT documented in this encounter Results * SCAN DOC: ECHO (01/25/2012 1:47 PM EDT) Anatomical Region Laterality Modality Other Narrative 01/25/2012 1:49 PM EDT Procedure Note Provider, Scanning - 01/25/2012 1:47 PM EDT Scanning Provider MEDIA MGR SCAN EXT O RDR/RSLT documented in this encounter Visit Diagnoses Diagnosis Palpitations- Primary documented in this encounter Care Teams Hand Printed Circuit Board Assembler Relationship Specialty Start Date End Date Daniella Denny, SUPERVISOR HOME [employer]OM[employer] [address] [place] [address] [address] [place] [address] PCP - General 07/21/10 03/10/21 documented as of this encounter
--- OUTSIDE RECORDS SUMMARY | 2024-05-04 01:42 | XMS_ITS | Encounter Summary ---
[place] [address] Care Team Providers Care Data Processing Specialist Name Role Phone TawannameganDaniella Andrez DAILEY Primary Care Provider Encounter Details Date Type Department Care Team (Late st Contact Info) Description 01/31/2017 Abstract Radiology and Cardiology Results [address] [place] [phone] Nlh Conversion, Results Provider, Social History [...] st Contact Info) Description 07/13/2024 10:00 AM [facility] Hospital Encounter Non-Invasive [place] [phone] Arrived documented as of this encounter Procedures Procedure Name Priority Date/Time Associated Diagnosis Comments HEPATITIS C RNA, QUANTITATIVE, PCR Routine 01/31/2017 9:12 AM EDT documented in this encounter Results * (ABNORMAL) Hepatitis C RNA, quantitative, PCR (01/31/2017 9:12 AM EDT) Hepatitis C RNA-PCR < 15 NOT DETECTED(E xternal Lab) <15 IU/mL [facility] CONVERSION Hepatitis C RNA-PCR < 1.18 NOT DETECTED(E xternal Lab) <1.18 LogIU/mL [facility] CONVERSION 01/31/2017 9:12 AM EDT Results Provider Nlh Conversion MD NEFTALY MORAABLES [facility] CONVERSION documented in this encounter Visit Diagnoses Not on filedocumented in this encounter Care Teams Data Processing Specialist Relationship Specialty Start Date End Date Daniella Denny, MECHANICAL SERVICE SPECIALIST [address] [place] [address] PCP - General 07/21/10 03/10/21 documented as of this encounter
--- OUTSIDE RECORDS SUMMARY | 2024-05-04 01:42 | XMS_ITS | Encounter Summary ---
[place] [address] Care Team Providers Care Rehabilitation Supervisor Name Role Phone Barrydinh Daniella Andrez DAILEY Primary Care Provider Encounter Details Date Type Department Care Team (Late st Contact Info) Description 10/27/2015 Abstract Radiology and Cardiology Results [address] [place] [phone] [facility] Conversion, Results Provider, Social History Tobacco [...] AM EST Hospital Encounter Non-Invasive [place] [phone] Arrived documented as of this encounter Procedures Procedure Name Priority Date/Time Associated Diagnosis Comments U ALBUMIN/CRE RATIO Routine 10/27/2015 8 :18 AM EST HEPATITIS C RNA, QUANTITATIVE, PCR Routine 10/27/2015 8:18 AM EST VITAMIN D, 25-HYDROXY Routine 10/27/2015 8:18 AM EST CBC (WITH DIFF) Routine 10/27/2015 8:18 AM EST TSH Routine 10/27/2015 8:18 AM EST HEMOGLOBIN A1C Routine 10/27/2015 8:18 AM EST LIPID PANEL (REFLEX DIRECT LDL) Routine 10/27/2015 8:18 AM EST COMPREHENSIVE METABOLIC PANEL Routine 10/27/2015 8:18 AM EST documented in this encounter Results * (ABNORMAL) U Albumin/Cre Ratio (10/27/2015 8:18 AM EST) Albumin / Creatinin Ratio, Urine 83(Externa l Lab) mcg/mg Cr [facility] CONVERSION Creatinine, Urine 34(Externa l Lab) mg/dL [facility] CONVERSION Albumin, Urine 28.1(Exter nal Lab) mg/L [facility] CONVERSION 10/27/2015 8:18 AM EST Results Provider Nlh Conversion URINE ORDERABLES Performing Organization Address [facility] Co de Phone Number NLH CONVERSION * (ABNORMAL) Hemoglobin A1c (10/27/2015 8:18 AM EST) Estimated Average Glucose See note(Exter nal Lab) mg/dL [facility] CONVERSION Hemoglobin A1c 6.0(ExtH) 4.3 - 5.6 % [facility] CONVERSION 10/27/2015 8:18 AM EST Results Provider Nlh Conversion MD ARIANA CALIX ORDERABLES Performing Organization Address [facility] Co de Phone Number NLH CONVERSION * (ABNORMAL) TSH (10/27/2015 8:18 AM EST) Thyroid Stimulating Hormone 3.113(Ext ernal Lab) 0.460 - 4.680 uIU/mL [facility] CONVERSION 10/27/2015 8:18 AM EST Results Provider Nlh Conversion MD ARIANA CALIX ORDERABLES Performing Organization Address City/[facility]/ZIP Co de Phone Number NLH CONVERSION * (ABNORMAL) Comprehensive metabolic panel (non-fasting) (10/27/2015 8:18 AM EST) Sodium 140(Exter nal Lab) 137 - 145 mmol/L [facility] CONVERSION Glucose 103(ExtH) 65 - 99 mg/dL [facility] CONVERSION Chloride 102(Exter nal Lab) 98 - 107 mmol/L [facility] CONVERSION Alkaline Phosphatase 75([facility]) 38 - 126 U/L [facility] CONVERSION Est Glomerular Filtration Rate 60([facility]) >=60 mL/min/1. 73m2 [facility] CONVERSION eGFR 60([facility]) >=60 mL/min/1. 73m2 [facility] CONVERSION Alanine Aminotransferase 35([facility]) 13 - 69 U/L [facility] CONVERSION Aspartate Aminotransferase 24([facility]) 15 - 46 U/L [facility] CONVERSION Carbon Dioxide 24([facility]) 22.0 - 30.0 mmol/L [facility] CONVERSION Blood Urea Nitrogen 19([facility]) 7 - 20 mg/dL [facility] CONVERSION Calcium 9.4(Exter nal Lab) 8.4 - 10.2 mg/dL [facility] CONVERSION Protein, Total 7.4(Exter nal Lab) 6.3 - 8.2 g/dL [facility] CONVERSION Albumin 4.3(Exter nal Lab) 3.5 - 5.0 g/dL [facility] CONVERSION Potassium 4.2(Exter nal Lab) 3.6 - 5.0 mmol/L [facility] CONVERSION Bilirubin, Total 0.9(Exter nal Lab) 0.2 - 1.3 mg/dL [facility] CONVERSION Creatinine 0.7(Exter nal Lab) 0.52 - 1.04 mg/dL [facility] CONVERSION 10/27/2015 8:18 AM EST Results Provider Nlh Conversion CHEMMathew STRAashish ORDERABLES NLH CONVERSION * (ABNORMAL) CBC (with Diff) (10/27/2015 8:18 AM EST) Platelet 194(Exter nal Lab) 140 - 440 thou/mm3 [facility] CONVERSION Mean Cell Volume 89([facility]) 81 - 97 fl [facility] CONVERSION Neutrophil % 45.9(Exte rnal Lab) % [facility] CONVERSION Lymph % 43.4(Exte rnal Lab) % [facility] CONVERSION Hematocrit 42([facility]) 37 - 47 % [facility] CONVERSION Mean Cell Hemoglobin Concentration 33([facility]) 32 - 36 % [facility] CONVERSION Mean Cell Hemoglobin 30([facility]) 27 - 32 pg [facility] CONVERSION Hemoglobin 13.9(Exte rnal Lab) 12.0 - 16.0 gm/dL [facility] CONVERSION RDW coefficient of variation 12.7(Exte rnal Lab) 11.5 - 15.5 % NL[facility] CONVERSION Monocyte % 6.5(Exter nal Lab) % NL[facility] CONVERSION Red Blood Cell 4.7(Exter nal Lab) 4.2 - 5.4 mil/mm3 NL[facility] CONVERSION White Blood Cell 4(ExtL) 4.5 - 10.0 thou/mm3 [facility] CONVERSION Eos % 3.5(Exter nal Lab) % [facility] CONVERSION Neutrophil Absolute 1.8(Exter nal Lab) 1.6 - 6.5 thou/mm3 [facility] CONVERSION Lymphocytes Abs 1.7(Exter nal Lab) 1.2 - 3.4 thou/mm3 [facility] CONVERSION Basophil % 0.7(Exter nal Lab) % [facility] CONVERSION Monocyte Abs 0.3(Exter nal Lab) 0.1 - 0.6 thou/mm3 [facility] CONVERSION Eosinophils Abs 0.1(Exter nal Lab) 0.0 - 0.2 thou/mm3 [facility] CONVERSION Baso Absolute 0(Externa l Lab) 0.0 - 0.1 thou/mm3 NL[facility] CONVERSION 10/27/2015 8:18 AM EST Results Provider Nlh Conversion HEMAT OLOGY ORDERABLES NLH CONVERSION * (ABNORMAL) Vitamin D, 25-Hydroxy (10/27/2015 8:18 AM EST) Vit D, 25-Hydroxy 37(Externa l Lab) 30 - 100 ng/mL [facility] CONVERSION 10/27/2015 8:18 AM EST Results Provider Nlh Conversion CHEMMathew STRAashish ORDERABLES NLH CONVERSION * (ABNORMAL) Hepatitis C RNA, quantitative, PCR (10/27/2015 8:18 AM EST) Hepatitis C RNA-PCR < 15 NOT DETECTED(E xternal Lab) <15 IU/mL [facility] CONVERSION Hepatitis C RNA-PCR < 1.18 NOT DETECTED(E xternal Lab) <1.18 LogIU/mL [facility] CONVERSION 10/27/2015 8:18 AM EST Results Provider Nlh Conversion MD NEFTALY FLOWERS ORDERABLES NLH CONVERSION * (ABNORMAL) Lipid Panel (Reflex Direct LDL) (10/27/2015 8:18 AM EST) LDL Cholesterol 76([facility]) <=99 mg/dL [facility] CONVERSION HDL Cholesterol 54([facility]) >=40 mg/dL [facility] CONVERSION Cholesterol/HDL Ratio 2.9(Exter nal Lab) ratio [facility] CONVERSION Cholesterol, Total 159(Exter nal Lab) <=199 mg/dL [facility] CONVERSION Triglyceride 143(Exter nal Lab) <=149 mg/dL [facility] CONVERSION 10/27/2015 8:18 AM EST Results Provider Nlh Conversion MD ARIANA CALIX ORDERABLES NLH CONVERSION documented in this encounter Visit Diagnoses Not on filedocumented in this encounter Care Teams Rehabilitation Supervisor Relationship Specialty Start Date End Date Daniella Denny, FINGERPRINT CLASSIFIER [address] [place] [address] [address] [place] [address] PCP - General 07/21/10 03/10/21 documented as of this encounter
--- OUTSIDE RECORDS SUMMARY | 2024-05-04 01:42 | XMS_ITS | Encounter Summary ---
[place] [address] Care Team Providers Care Brewery Pumper Name Role Phone Vicenta Ndiaye APRN Primary Care Provider [phone] Reason for Visit * Auth/Cert Specialty Diagnoses / Procedures Referred By Contac t Referred To Contact Diagnoses atrial fibrillation Procedures PRO CARDIOVERSION ELECTIVE ARRHYTHMIA EXTERNAL CARDIOVERSION-ELECTIVE (WRVU 2.25) Referral ID Status Reason Start Date Expiration Date Visits Re quested Visits Authorized [id number] 1 1 Encounter Details Date Type Department Care Team (Latest Contact Info) Description 07/16/2021 10:23 AM EST - 07/16/2021 1:45 PM EST Hospital Encounter [place] [address] Janett Vidal MD [facility] [place] [address] Persistent atrial fibrillation Discharge Disposition: Home Social History Tobacco Use [...] Sign Reading Time Taken Comments Blood Pressure 129/63 07/16/2021 1:15 PM EST Pulse 48 07/16/2021 1:15 PM EST Temperature 37.6 ??C (99.7 ??F) 07/16/2021 1:39 PM ES T Respiratory Rate 13 07/16/2021 1:15 PM EST Oxygen Saturation 94% 07/16/2021 1:15 PM EST Inhaled Oxygen Concentration - - [...] the adhesive pads were placed, call the tint layer telephone plant power operator at . ? We will schedule a follow-up appointment with the tint layer here, or you will be scheduled to [...] Birthdate: 1945 Admit date: 07/16/2021 Attending Physician: Jantet Vidal MD Please see Meagan Gonzalez' 07/16/21 [...] fibrillation ELECTRICAL CARDIOVERSION Attending: Janett Vidal MD Glass Embosser: Date of Procedure: 07/16/2021 Indication: Atrial fibrillation, [...] AM EST Hospital Encounter Non[place] [address] Arrived documented as of this encounter Procedures Procedure Name Priority Date/Time Associated Diagnosis Comments EKG 12-LEAD STAT 07/16/2021 12:41 PM EST Persistent atrial fibrillation Cardioversion Elective Arrhythmia External (40212) 07/16/2021 12:12 PM EST Persistent atrial fibrillation [...] (Bezet) 428 ms MUSE SYSTEM Calculated P [place]olt 33 degrees MUSE SYSTEM Calculated R [place] -4 degrees MUSE SYSTEM Calculated T [place] -28 degrees MUSE SYSTEM INTERPRETATION Sinus bradycardia with 2nd degree A-V block (Mobitz I) Left axis deviation Abnormal ECG When compared with ECG of 16-JUL-2021 09:42, (unconfirmed) Sinus bradycardia with 2nd degree A-V block (Mobitz I) has replaced Atrial fibrillation I personally reviewed the tracing and edited the fellows interpretation Confirmed by fellow MD Rosaura [facility] ([id number]) on 07/17/2021 3:55:44 PM Confirmed by Maddie [...] CRNA) documented in this encounter Care Teams Brewery Pumper Relationship Specialty Start Date End Date Vicenta Ndiaye APRN [address] [place] [address] PCP - General Family Medicine 03/11/21 documented as of this encounter
--- OUTSIDE RECORDS SUMMARY | 2024-05-04 01:42 | XMS_ITS ---
Author Organization Unknown Address [address] [place] [phone] Phone Care Team Providers Care Surgical Lead Name Role Phone SHAHIDA Hobbs Attending Unavailable Results MM SCR MAMMO BI INCL CAD - C ompleted: 11/24/2021 11:24 LOINC: Digital mammograms were inte rpreted according to the usual protocol including computer analysis with CADx system including tomosynthesis. Comparison 2011 through 2018. The breasts are composed of scattered fibroglandular densities. No suspicious masses or suspicious microcalcifications are seen. There has been no significant change. IMPRESSION: Negative mammogram. Yearly screening mammography is recommended. BI-RADS Assessment: Category 1. Negative. BREAST DENSITY: b. There are scattered areas of fibroglandular density. TECHNOLOGIST: RT Oscar (R) (M) Dictated by: CEO BESSY BARRETO MD Transcribed by: [facility] 11/24/21/12:29 D Wednesday, November 24, 2021 11:58:34 AM [id number] Electronically Reviewed and Signed By: BESSY BARRETO MD 11/24/21 12:38 Copy for: SHAHIDA Hobbs via fax Copy for: 185 HEALTH INFORMATION MGMT Social History Type Status Start Date End Date Code Code Syst em Smoking History Never smoker (Never Smoked) [id number] SNOMED CT Sex Female Hospital Discharge Instructions [...] Date Code Code Sys tem Screening mammography 11/24/2021 [id number] SNOMED -CT Personal Care Team Section Performer Name Performer Role Active Date Inactive Da te
--- OUTSIDE RECORDS SUMMARY | 2024-05-04 01:42 | XMS_ITS | Encounter Summary ---
[place] [address] Care Team Providers Care Bevel Operator Name Role Phone Vicenta Ndiaye APRN Primary Care Provider [phone] Reason for Visit * Auth/Cert Specialty Diagnoses / Procedures Referred By Contac t Referred To Contact Diagnoses atrial fibrillation Procedures PRO CARDIOVERSION ELECTIVE ARRHYTHMIA EXTERNAL CARDIOVERSION-ELECTIVE (WRVU 2.25) Referral ID Status Reason Start Date Expiration Date Visits Re quested Visits Authorized [id number] 1 1 Encounter Details Date Type Department Care Team (Latest Contact Info) Description 07/16/2021 9:10 AM EST Laboratory Appointment Lab [address] [place] [phone] Persistent atrial fibrillation Social History Tobacco Use [...] AM EST Hospital Encounter Non-[place] [phone] Arrived documented as of this encounter Procedures Procedure Name Priority Date/Time Associated Diagnosis Comments HC MAGNESIUM, SERUM Routine 07/16/2021 9:25 AM EST Persistent atrial fibrillation BASIC METABOLIC PANEL Routine 07/16/2021 9:25 AM EST Persistent atrial fibrillation documented in this encounter Results * Basic Metabolic Panel (non-fasting) (07/16/2021 9:25 AM EST) Glucose 118 65 - 199 mg/dL [facility] Comment:Diabetes: >=200 mg/d L plus symptoms Blood Urea Nitrogen 16 8 - 18 mg/dL [facility] Creatinine 0.93 0.70 - 1.20 mg/dL [facility] Sodium 140 135 - 145 mmol/L [facility] Potassium 4.5 3.5 - 5.0 mmol/L [facility] Comment: Please note: ??Patients with WBC >100,000 may have falsely elevated Potassium levels. ??For accurate Potassium quantification in these patients send serum separator tube (gold top) for subsequent determinations. ??Contact the Clinical Chemistry Laboratory if there are any questions. Chloride 105 98 - 107 mmol/L [facility] Carbon Dioxide 25 22 - 31 mmol/L [facility] Anion Gap 10 5 - 15 mmol/L [facility] Calcium 9.7 8.5 - 10.5 mg/dL [facility] Est Glomerular Filtration Rate 60 >=60 mL/min/1. 73 m?? [facility] Comment: This patient? s estimated glomerular [...] Diaz MD CHEMISTRY ORDERABLES Performing Organization Address City/[facility]/ZIP Co de Phone Number [facility] [place] [address] * Magnesium (07/16/2021 9:25 AM EST) Magnesium 0.88 0.69 - 1.07 mmol/L [facility] Blood 07/16/2021 9:25 AM EST 07/16/2021 9:50 AM EST Narrative Resulting Agency Comment Spec In Lab Naveen Diaz MD CHEMISTRY ORDERABLES Performing Organization Address [facility] Co de Phone Number [facility] [place] [address] documented in this encounter Visit Diagnoses Diagnosis Persistent atrial fibrillation Atrial fibrillation documented in this encounter Care Teams Bevel Operator Relationship Specialty Start Date End Date Vicenta Ndiaye APRN [address] [place] [address] PCP - General Family Medicine 03/11/21 documented as of this encounter
--- OUTSIDE RECORDS SUMMARY | 2024-05-04 01:42 | XMS_ITS | Encounter Summary ---
[place] [address] Care Team Providers Care Network Relay Tester Name Role Phone Daniella Denny Andrez DAILEY Primary Care Provider Encounter Details Date Type Department Care Team (Late st Contact Info) Description 11/17/2011 Abstract Radiology and Cardiology Results [address] [place] [phone] Nl Conversion, Results Provider, Social History [...] AM EST Hospital Encounter Non-[place] [phone] Arrived documented as of this encounter Procedures Procedure Name Priority Date/Time Associated Diagnosis Comments HEPATITIS C RNA, QUANTITATIVE, PCR Routine 11/17/2011 8:03 AM EDT VITAMIN D, 25-HYDROXY Routine 11/17/2011 8:03 AM EDT documented in this encounter Results * (ABNORMAL) Vitamin D, 25-Hydroxy (11/17/2011 8:03 AM EDT) Vit D, 25-Hydroxy < 4(External Lab) ng/mL [facility] CONVERSION Vit D, 25-Hydroxy 27(Externa l Lab) ng/mL [facility] CONVERSION Vit D, 25-Hydroxy 27(ExtL) 30 - 100 ng/mL [facility] CONVERSION 11/17/2011 8:03 AM EDT Results Provider Nlh Conversion MD ARIANA CALIX ORDERABLES [facility] CONVERSION * (ABNORMAL) Hepatitis C RNA, quantitative, PCR (11/17/2011 8:03 AM EDT) Hepatitis C RNA-PCR < 43 NOT DETECTED(E xternal Lab) <43 IU/mL [facility] CONVERSION Hepatitis C RNA-PCR < 1.63 NOT DETECTED(E xternal Lab) <1.63 log10 IU/mL [facility] CONVERSION 11/17/2011 8:03 AM EDT Results Provider Nlh Conversion MD NEFTALY FLOWERS ORDERABLES NL[facility] CONVERSION documented in this encounter Visit Diagnoses Not on filedocumented in this encounter Care Teams Network Relay Tester Relationship Specialty Start Date End Date Daniella Denny, ASIM [address] [place] [address] [address] [place] [address] PCP - General 07/21/10 03/10/21 documented as of this encounter
[2024-05-04 12:16] LABS: HGB 14.8 g/dL (11.2-15.7); MCH 31.1 pg (27.0-33.0); MCHC 33.6 % (32.0-36.0); MCV 92 fL (80-95); MPV 10.1 fL (8.0-11.0); Platelet Count 169 10^3/uL (130-400); RBC 4.76 10^6/uL (3.93-5.22); RDW 12.5 % (11.7-14.6); RDW-SD 42.5 fL; WBC 4.94 10^3/uL (4.4-10.8)
[2024-05-04 12:58] LABS: Anion Gap 8.7 mmol/L (3-11); BUN 19 mg/dL (7-18); CO2 27.3 mmol/L (21.0-32.0); CREATININE 0.8 mg/dL (0.55-1.02); Chloride 99 mmol/L (98-107); Estimated GFR 75.37 (mL/min/1.73m2); Glucose 99 mg/dL (74-106); Potassium 4.4 mmol/L (3.5-5.1); Sodium 135 mmol/L (136-145)
== END 2024-05-04 01:07 | disposition home or self-care (01) ==
LOC: LBO 01:06
PROVIDERS: PCP Nurse Practitioner Family; Visit Provider Student in an Organized Health Care Education/Training Program
DX: M17.12 Unilateral primary osteoarthritis, left knee (principal); Z01.818 Encounter for other preprocedural examination
CPT/HCPCS: 36415; 80048; 85027

== ENCOUNTER 2024-05-09 09:03 | Day surgery (SDC) | payer MEDICARE, SELFPAY ==
[2024-05-09] VITALS (17 sets, daily range): BP systolic 107–189; BP diastolic 53–86; PULSE 59–62; RESP 7–27; TEMP 35.9–36.6; O2SAT 96–99; BMI 30.2
--- NOTE | 2024-05-09 08:32 | ANES.PREOP_ITS ---
General Info Date of Service Date Performed: 05/09/24 Height: 5 ft 3 in Weight: 77.564 kg Body Mass Index (BMI): 30.2 Surgical Procedure: Operation Date: 05/09/24 12:40 Proposed Procedure Side Surgeon p Knee Total Arthroplasty w/OrthAlign Left Jay Ochoa MD Meds Allergies and Home Medications Allergies Allergy/AdvReac Type Severity Reaction Status Date / Time diflunisal (From Dolobid) AdvReac Mild Other (See Verified 05/09/24 09:23 Comment) ezetimibe (From Zetia) AdvReac Mild Other (See Verified 05/09/24 09:23 Comment) quinapril (From Accupril) AdvReac Mild Other (See Verified 05/09/24 09:23 Comment) Home Medication ?Medication ?Instructions ?Recorded rivaroxaban 20 mg tablet (Xarelto) 20 mg PO DAILY 09/08/20 levothyroxine 13 mcg capsule 50 mcg PO DAILY 10/17/20 multivitamin 1 tab PO DAILY 04/27/21 ferrous sulfate 325 mg (65 mg 325 mg PO DAILY 02/06/23 iron) tablet (FeroSul) isosorbide mononitrate 30 mg 30 mg PO DAILY 05/05/23 tablet,extended release 24 hr losartan 50 mg tablet 50 mg PO DAILY 05/04/24 rosuvastatin 5 mg tablet 5 mg PO DAILY 05/04/24 acetaminophen 500 mg tablet 1,000 mg (2 x 500 mg) PO TID #90 05/09/24 tabs celecoxib 200 mg capsule 200 mg PO BID #60 caps 05/09/24 dexamethasone 4 mg tablet 4 mg PO DAILY #2 tabs 05/09/24 gabapentin 300 mg capsule 300 mg PO QHS #14 caps 05/09/24 oxycodone 5 mg tablet 5 mg PO Q4H PRN pain #20 tabs 05/09/24 pantoprazole 40 mg tablet,delayed 40 mg PO DAILY #30 tabs 05/09/24 release Current Visit Medications: Current Medications Generic Name Dose Route Start Last Admin Trade Name Freq PRN Reason Stop Dose Admin Acetaminophen 1,000 mg 05/09/24 06:00 Acetaminophen 500 Mg Tab PO 05/09/24 23:59 PREOP LEAH Celecoxib 400 mg 05/09/24 06:00 Celecoxib 200 Mg Cap PO 05/09/24 23:59 PREOP LEAH Ringer's Solution 1,000 mls @ 80 mls/hr 05/09/24 06:00 IV 05/09/24 23:59 INFUSION [facility] IV Miscellaneous Supplies 1 each 05/09/24 06:00 Iv Access IV 05/09/24 23:59 DIRECTED LEAH Sodium Chloride 0 ml 05/09/24 06:00 Normal Saline Flush 10 Ml Syr IV 05/09/24 23:59 PRN PRN Sodium Chloride 0 ml 05/09/24 06:00 Normal Saline 10 Ml Vial IJ 05/09/24 23:59 DIRECTED PRN Sterile Water 0 ml 05/09/24 06:00 Water,Injection,Sterile 10 Ml Vial IJ 05/09/24 23:59 DIRECTED PRN PFSH Active Problems Active Problems: Problem Status Onset Code Osteoarthritis of left knee Acute M17.12 Dysphagia Acute R13.10 Restless leg syndrome Acute G25.81 Essential tremor Acute G25.0 Laceration of finger of left hand Acute S61.219A A-fib Chronic I48.91 Medical History Medical History (Updated 05/09/24 @ 09:49 by Arabella Ag RN) 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 Neck abscess Hypertension Hepatitis C High cholesterol Leukopenia Heart murmur History of reactive airway disease History of prediabetes Diverticular disease Rosacea Knee joint pain Subclinical hypothyroidism Surgical History Surgical History (Updated 05/09/24 @ 09:49 by Arabella Ag RN) S/P surgical removal of pilonidal cyst S/P tonsillectomy and adenoidectomy H/O cardiac radiofrequency ablation Tobacco Smoking/Tobacco Use Status: Never Alcohol Alcohol Intake: current Alcohol intake frequency: a few times a month Alcohol type: wine Substance Use Substance use: Never Substance use type: does not use Vital Signs and Lab Results Vital Signs Most Recent Vital Signs in EMR: Temp Pulse Resp BP Pulse Ox 36.3 C L 60 16 156/71 H 99 05/09/24 09:20 05/09/24 09:20 05/09/24 09:20 05/09/24 09:20 05/09/24 09:20 Vital Signs Comment Vital Signs Comment:: Temp Pulse Resp BP Pulse Ox 36.3 C L 60 16 156/71 H 99 05/09/24 09:20 05/09/24 09:20 05/09/24 09:20 05/09/24 09:20 05/09/24 09:20 Lab Results Blood Type / Crossmatch: No Data to Display Complete Blood Count: White Blood Count 4.94 10^3/uL (4.4-10.8) 05/04/24 12:02 Red Blood Count 4.76 10^6/uL (3.93-5.22) 05/04/24 12:02 Hemoglobin 14.8 g/dL (11.2-15.7) 05/04/24 12:02 Hematocrit 44.0 % (36.0-46.0) 05/04/24 12:02 Platelet Count 169 10^3/uL (130-400) 05/04/24 12:02 Complete Metabolic Panel: Sodium 135 mmol/L (136-145) L 05/04/24 12:02 Potassium 4.4 mmol/L (3.5-5.1) 05/04/24 12:02 Chloride 99 mmol/L (98-107) 05/04/24 12:02 Carbon Dioxide 27.3 mmol/L (21.0-32.0) 05/04/24 12:02 BUN 19 mg/dL (7-18) H 05/04/24 12:02 Creatinine 0.8 mg/dL (0.55-1.02) 05/04/24 12:02 Est GFR (CKD-EPI 2020) 75.37 (mL/min/1.73m2) 05/04/24 12:02 Calcium 10.0 mg/dL (8.5-10.1) 05/04/24 12:02 Glucose 99 mg/dL (74-106) 05/04/24 12:02 Liver Function Panel: No Data to Display Coagulation Panel: No Data to Display Cardiac Panel: No Data to Display Arterial Blood Gas: No Data to Display Venous Blood Gas: No Data to Display Pancreas Panel: No Data to Display Thyroid Panel: No Data to Display Infectious Disease: No Data to Display Blood Cultures: No Data to Display Toxicology Panel: No Data to Display Imaging and Studies Imaging and Studies Study information below may be from another EMR and interpreted by another provider. Please see original notes in EMR for more complete details. EKG Summary: 05/21: AV paced. Stress Test Summary: 02/16: ECG with 1st degree. 1.92 METS. MPI with evidence of ischemia or infarction. EF 63%. Echocardiogram Summary: 10/19: LVEF 55-60%. no sig valvar lesions. Anesthesia Assessment and Plan Anesthesia History Personal History: No History of Anesthesia Complications Family History: No Family History of Anesthesia Complications Exercise Tolerance Exercise Tolerance: Metabolic Equivalents>4 Pertinent Negatives Pertinent Negatives: No Major Pulmonary Symptoms or Complaints Cardiac & Pulmonary Exam Cardiac Exam: Normal S1/S2 Heart Sounds Pulmonary Exam: Clear Bilateral Breath Sounds Implantable Cardiac Device Does patient have a Pacemaker or an ICD?: Yes Device Department Operations Manager:: [employer] Reason for Placement:: Afib Date of Last Device Interrogation:: 04/14/24 Airway Exam Known Difficult Airway: No Mallampati Class: 2 Mouth Opening: Normal (> 3cm) Thyromental Distance: Greater than 3 cm Neck Range of Motion: Full ROM Neck Circumference: Normal Teeth Condition: Normal Dentition and Removable Dentures/Plates Upper ASA Classification ASA Score: ASA 3 Emergency Case?: No NPO Status NPO Status: NPO Clears >2 hours, Solids >8 hours Anesthesia Plan Resuscitation Status: Full Code Anesthesia Technique: Spinal Anesthesia Airway Planned: Natural Airway Pain Management: Surgeon and patient request nerve block Monitors Used: Standard Monitors and SedLine Preoperative Comments:: 78 yo female for TKA. Sig PMHx: HTN (losartan, isosorbide), pacer, pAF (rivaroxaban), dysphagia, preD M, hypothyroid (on replacement), RLS. never smoker, occ EtOH.
[2024-05-09] MEDS: Acetaminophen 500 MG TAB 1000 MG PO (09:38)
[2024-05-09] MEDS: Celecoxib 200 MG CAP 400 MG PO (09:38)
[2024-05-09] MEDS: Lactated Ringers 1,000 ML 80 ML IV (09:56)
--- NOTE | 2024-05-09 10:09 | PDOC.DSDIS_ITS ---
Date of service: 05/09/24 Time of Service: 10:09 Discharge Plan Disposition Patient Disposition: Home Condition: Good Discharge Details Reason For Visit: L TKR Attending Provider: Jay Ochoa Primary Care Provider: Vicenta Ndiaye Home Meds and New Rx's Prescriptions: New celecoxib 200 mg capsule 200 mg PO BID Qty: 60 0RF acetaminophen 500 mg tablet 1,000 mg PO TID Qty: 90 3RF pantoprazole 40 mg tablet,delayed release (DR/EC) 40 mg PO DAILY Qty: 30 0RF dexamethasone 4 mg tablet 4 mg PO DAILY Qty: 2 0RF oxycodone 5 mg tablet 5 mg PO Q4H MDD 6 tabs PRN (Reason: pain) Qty: 20 0RF gabapentin 300 mg capsule 300 mg PO QHS Qty: 14 0RF Continued levothyroxine 13 mcg capsule 50 mcg PO DAILY losartan 50 mg tablet 50 mg PO DAILY rosuvastatin 5 mg tablet 5 mg PO DAILY Xarelto 20 mg tablet 20 mg PO DAILY Rx Instructions: must administer with evening meal ferrous sulfate [FeroSul] 325 mg (65 mg iron) tablet 325 mg PO DAILY multivitamin Tablet 1 tab PO DAILY isosorbide mononitrate 30 mg tablet extended release 24 hr 30 mg PO DAILY Patient Comments: TAKE ONE TABLET BY MOUTH EVERY MORNING Discharge Instructions Additional Instructions: Total Knee Discharge Instructions Activity: The most important activity is to walk and to work on gentle motion (both flexion and extension). You should try to take short walks a few times a day. It is important that when resting you work on keeping the knee straight. Avoid putting a pillow behind the knee as this will encourage flexion. Work on range of motion exercises as provided by Physical Therapy. - Start outpatient physical therapy within 2 weeks. - You should wear the ARMINDA hose on both legs for 2 weeks. You may remove these at night. You may also use any compression sock in place of the ARMINDA hose. - Utilize [employer] to review exercises, see videos on exercises and obtain basic information pertaining to your surgery and your recovery. Dressing: Remove the Oleg wrap by 2 days after your surgery and put on the ARMINDA stocking given to you from the hospital. Keep the surgical dressing (underneath the OLEG wrap) in place for at least one week. After the first week it may be removed and replaced with light gauze and tape or nothing. The wound and dressing may get wet after 3 days but avoid soaking the dressing or otherwise it will need to be changed. Many people prefer covering the dressing with cling wrap (saran wrap) to minimize it from getting soaked. If it gets wet, just pat dry. If it starts to peel off then it will need to be changed. Medications: - You should take Tylenol and anti-inflammatory Celebrex as your primary pain control medications. If the Celebrex is too expensive or not covered, please call the office for another alternative (Advil/Ibuprofen or Naproxen/Aleve) - You have been prescribed a stronger pain medication Oxycodone for breakthrough pain, take as needed as prescribed. - You have also been prescribed a stomach acid reduction agent Pantoprozole to help reduce stomach acid and reflux. - You have been prescribed Gabapentin to take at night for restlessness and nerve pain. - You will be taking your xarelto for DVT prevention unless instructed otherwise. - You have also been prescribed Decadron to take to control post-operative nausea and pain. You will start this tomorrow. - If you have constipation you should take Colace or Miralax (both [id number]). It takes most people 3-4 days to have a bowel movement. Follow-up: 2 weeks If you have any acute concerns or questions, please do not hesitate to contact the office at [phone]. You may contact Dr. Ochoa with any questions after hours through the hospital at [phone] or on his cell phone at [phone]. Referrals: Jay Ochoa MD [ [facility] STAFF PHYSICIAN] - Equipment/Supplies: Walker Activity:: Activity as Tolerated Shower/Bathe:: 72 hours Diet:: As Tolerated Discharge Orders Discharge Orders: Discharge Order (Routine); Ordered 05/09/24 Ordered By: Bradley Lucero DS: Diagnosis Discharge Diagnosis (1) Osteoarthritis of left knee: Status: Resolved
--- NOTE | 2024-05-09 10:56 | W.ANESPRE ---
General Info Date of Service Date Performed: 05/09/24 Height: 5 ft 3 in Weight: 76.5 kg Body Mass Index (BMI): 29.8 Surgical Procedure: Operation Date: 05/09/24 12:40 Proposed Procedure Side Surgeon p Knee Total Arthroplasty w/OrthAlign Left Jay Ochoa MD Meds Allergies and Home Medications Allergies Allergy/AdvReac Type Severity Reaction Status Date / Time diflunisal (From Dolobid) AdvReac Mild Other (See Verified 05/09/24 09:23 Comment) ezetimibe (From Zetia) AdvReac Mild Other (See Verified 05/09/24 09:23 Comment) quinapril (From Accupril) AdvReac Mild Other (See Verified 05/09/24 09:23 Comment) Home Medication ?Medication ?Instructions ?Recorded rivaroxaban 20 mg tablet (Xarelto) 20 mg PO DAILY 09/08/20 levothyroxine 13 mcg capsule 50 mcg PO DAILY 10/17/20 multivitamin 1 tab PO DAILY 04/27/21 ferrous sulfate 325 mg (65 mg 325 mg PO DAILY 02/06/23 iron) tablet (FeroSul) isosorbide mononitrate 30 mg 30 mg PO DAILY 05/05/23 tablet,extended release 24 hr losartan 50 mg tablet 50 mg PO DAILY 05/04/24 rosuvastatin 5 mg tablet 5 mg PO DAILY 05/04/24 acetaminophen 500 mg tablet 1,000 mg (2 x 500 mg) PO TID #90 05/09/24 tabs celecoxib 200 mg capsule 200 mg PO BID #60 caps 05/09/24 dexamethasone 4 mg tablet 4 mg PO DAILY #2 tabs 05/09/24 gabapentin 300 mg capsule 300 mg PO QHS #14 caps 05/09/24 oxycodone 5 mg tablet 5 mg PO Q4H PRN pain #20 tabs 05/09/24 pantoprazole 40 mg tablet,delayed 40 mg PO DAILY #30 tabs 05/09/24 release Current Visit Medications: Current Medications Generic Name Dose Route Start Last Admin Trade Name Freq PRN Reason Stop Dose Admin Acetaminophen 1,000 mg 05/09/24 06:00 05/09/24 09:38 Acetaminophen 500 Mg Tab PO 05/09/24 23:59 1,000 mg PREOP LEAH Administration Acetaminophen 1,000 mg 05/09/24 16:00 Acetaminophen 500 Mg Tab PO 06/08/24 15:59 TID PRN PRN Analgesia Celecoxib 400 mg 05/09/24 06:00 05/09/24 09:38 Celecoxib 200 Mg Cap PO 05/09/24 23:59 400 mg PREOP LEAH Administration Docusate Sodium 100 mg 05/09/24 10:07 Docusate Sodium 100 Mg Cap PO 06/08/24 10:06 BID PRN PRN Constipation Ringer's Solution 1,000 mls @ 80 mls/hr 05/09/24 06:00 05/09/24 09:56 IV 05/09/24 23:59 80 mls/hr INFUSION LEAH Administration Cefazolin Sodium/Dextrose 2 gm in 50 mls @ 100 mls/hr 05/09/24 10:15 Ancef Duplex IVPB 06/08/24 10:14 PREOP LEAH Tranexamic Acid/Sodium Chloride 1,000 mg in 100 mls @ 600 mls/hr 05/09/24 10:15 IVPB 06/08/24 10:14 PREOP LEAH IV Miscellaneous Supplies 1 each 05/09/24 06:00 Iv Access IV 05/09/24 23:59 DIRECTED LEAH Ondansetron HCl 4 mg 05/09/24 10:07 Ondansetron 4 Mg/2 Ml Vial IVP 06/08/24 10:06 Q6H PRN PRN Nausea Oxycodone HCl 0 mg 05/09/24 10:07 Oxycodone 5 Mg Tab PO 06/08/24 10:06 Q3H PRN PRN Pain Polyethylene Glycol 17 gm 05/09/24 10:07 Polyethylene Glycol 3350 17 Gm Packet PO 06/08/24 10:06 BID PRN PRN Constipation Sodium Chloride 0 ml 05/09/24 06:00 Normal Saline Flush 10 Ml Syr IV 05/09/24 23:59 PRN PRN Sodium Chloride 0 ml 05/09/24 06:00 Normal Saline 10 Ml Vial IJ 05/09/24 23:59 DIRECTED PRN Sterile Water 0 ml 05/09/24 06:00 Water,Injection,Sterile 10 Ml Vial IJ 05/09/24 23:59 DIRECTED PRN PFSH Active Problems Active Problems: Problem Status Onset Code History of total left knee replacement Acute 05/09/24 Z96.652 Dysphagia Acute R13.10 Restless leg syndrome Acute G25.81 Essential tremor Acute G25.0 Laceration of finger of left hand Acute S61.219A A-fib Chronic I48.91 Medical History Medical History (Updated 05/09/24 @ 09:49 by Arabella Ag RN) 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 Neck abscess Hypertension Hepatitis C High cholesterol Leukopenia Heart murmur History of reactive airway disease History of prediabetes Diverticular disease Rosacea Knee joint pain Subclinical hypothyroidism Surgical History Surgical History (Updated 05/09/24 @ 09:49 by Arabella Ag RN) S/P surgical removal of pilonidal cyst S/P tonsillectomy and adenoidectomy H/O cardiac radiofrequency ablation Tobacco Smoking/Tobacco Use Status: Never Alcohol Alcohol Intake: current Alcohol intake frequency: a few times a month Alcohol type: wine Substance Use Substance use: Never Substance use type: does not use Vital Signs and Lab Results Vital Signs Most Recent Vital Signs in EMR: Most Recent Vital Signs Temp Pulse Resp Pulse Ox 36.3 C L 60 16 99 05/09/24 09:20 05/09/24 09:20 05/09/24 09:20 05/09/24 09:20 Lab Results Blood Type / Crossmatch: No Data to Display Complete Blood Count: White Blood Count 4.94 10^3/uL (4.4-10.8) 05/04/24 12:02 Red Blood Count 4.76 10^6/uL (3.93-5.22) 05/04/24 12:02 Hemoglobin 14.8 g/dL (11.2-15.7) 05/04/24 12:02 Hematocrit 44.0 % (36.0-46.0) 05/04/24 12:02 Platelet Count 169 10^3/uL (130-400) 05/04/24 12:02 Complete Metabolic Panel: Sodium 135 mmol/L (136-145) L 05/04/24 12:02 Potassium 4.4 mmol/L (3.5-5.1) 05/04/24 12:02 Chloride 99 mmol/L (98-107) 05/04/24 12:02 Carbon Dioxide 27.3 mmol/L (21.0-32.0) 05/04/24 12:02 BUN 19 mg/dL (7-18) H 05/04/24 12:02 Creatinine 0.8 mg/dL (0.55-1.02) 05/04/24 12:02 Est GFR (CKD-EPI 2020) 75.37 (mL/min/1.73m2) 05/04/24 12:02 Calcium 10.0 mg/dL (8.5-10.1) 05/04/24 12:02 Glucose 99 mg/dL (74-106) 05/04/24 12:02 Liver Function Panel: No Data to Display Coagulation Panel: No Data to Display Cardiac Panel: No Data to Display Arterial Blood Gas: No Data to Display Venous Blood Gas: No Data to Display Pancreas Panel: No Data to Display Thyroid Panel: No Data to Display Infectious Disease: No Data to Display Blood Cultures: No Data to Display Toxicology Panel: No Data to Display Imaging and Studies Imaging and Studies Study information below may be from another EMR and interpreted by another provider. Please see original notes in EMR for more complete details. EKG Summary: 05/21: AV paced. Stress Test Summary: 02/16: ECG with 1st degree. 1.92 METS. MPI with evidence of ischemia or infarction. EF 63%. Echocardiogram Summary: 10/19: LVEF 55-60%. no sig valvar lesions. 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
--- NOTE | 2024-05-09 11:50 | W.ANESNERVE ---
Nerve Block Single Injection Procedure Date and Time Date Performed: 05/09/24 Procedure Start: :28 Location Where Procedure Performed Procedure Location: Day Surgery Unit Reason Performed: Postoperative Analgesia Requesting Provider: Jay Ochoa Timeout Performed Timeout Performed: Yes Monitoring Used ECG, Blood Pressure, SpO2 and See EMR for corresponding vital signs Sterility Sterility: Hand Hygiene, Surgical Cap, Surgical Mask, Sterile Gloves, Sterile Drape/Sheet and Chlorhexidine Sedation Given During Procedure Sedation Given (Indicate Dose Given): Versed IV Dose:: 1mg Patient Mental Status Patient Mental Status: Awake Nerve Block 1st Nerve Block: Laterality: Left Block Type: Adductor Canal Ultrasound Image Saved?: No Needle / Catheter Used: 100mm SonoPlex II Local Anesthetic Bolus (Indicate Dose Given): Lidocaine used for local infiltration of skin Additives (Indicate Dose Given): None Ultrasound: Sterile probe cover and gel used Nerve Stimulator: Supplement to Ultrasound use and Other (twitch noted at <0.5mA) Paresthesia: None Procedure Tolerated: Patient tolerated well Procedure Outcome: Unsuccessful Procedure Comment: No paresthesia noted. Patient had local injection to one site, then noted positive nerve stimulation without paresthesia. No injection. Second LA site and same outcome. Decision made to abort block. Surgeon made aware. Performed By: Sherlyn Padron
[2024-05-09] MEDS: ceFAZolin 2 GM/50 ML BAG IVPB (11:56)
[2024-05-09] MEDS: TRANEXAMIC ACID/SOD. CHL. 1,000 MG/100 ML BAG 600 MG IVPB (12:08)
[2024-05-09] MEDS: oxyCODONE 5 MG TAB PO (14:50)
--- NOTE | 2024-05-09 14:50 | W.ANESPOSTOP ---
Postoperative Evaluation Date, Time and Location Date Performed: 05/09/24 Time Performed: 14:50 Patient Location: Day Surgery Unit Vital Signs Most Recent Imported Vital Signs: Most Recent Vital Signs Temp Pulse Resp BP Pulse Ox 35.9 C L 60 16 141/85 H 99 05/09/24 14:25 05/09/24 14:25 05/09/24 14:25 05/09/24 14:25 05/09/24 14:25 Pain Score Most Recent Pain Score: Most Recent Pain Score Pain Level 2 05/09/24 14:25 Assessment Mental Status: Awake (Alert & Oriented to Patient Baseline) Airway and Respiratory Function: Patent airway with normal (patient baseline) respiratory exam Cardiovascular Function: Hemodynamically Stable Hydration Status: Adequately Hydrated Nausea & Vomiting: No Nausea or Vomiting Pain: Pain is Moderate or Severe Postoperative Pain Management: Pain being addressed with medication Peripheral Nerve Block: Patient did not receive a nerve block (Discussed again rationale with patient and spouse during post op visit.)
--- NOTE | 2024-05-09 15:24 | IN_ITS ---
PT Notes Visit Reasons: L TKR Physical Therapy Day Surgery Initial Evaluation Date: 05/09/2024 Referring Doctor: MARGARITA Cummings PT Orders: PT CONSULT: S/P Ortho surgery Precautions: WBAT on left LE with AD. Patient Profile/Admitting Diagnosis: Archana is a 78-year-old female with osteoarthritis of the left knee and status post left total knee arthroplasty on postoperative day 0. PMHX: Medical History Diverticular disease Heart murmur Hepatitis C High cholesterol History of prediabetes History of reactive airway disease Hypertension Knee joint pain Leukopenia Neck abscess Rosacea Subclinical hypothyroidism Surgical History H/O cardiac radiofrequency ablation S/P surgical removal of pilonidal cyst S/P tonsillectomy and adenoidectomy Social History/Home Situation: Archana lives with show private residence with 2 steps to enter with rails on one side with a flight of steps to the second floor of the house where the bedroom is. Independent with all mobility ADL performance using a single crutch for weeks leading to today's surgery. Equipment Owned/DME: None Subjective: Reported 2-3/10 pain in the front of R knee Objective: General Observation: NELY wraps to LE. Mental Status: A and o x 4 Pain: 2-3/10 in the back of L knee ROM: Right Lower Extremity: Hip flexion WFL. Hip abduction WFL. Knee flexion WFL. Ankle dorsiflexion WFL. Ankle plantarflexion WFL. Left Lower Extremity: Hip flexion WFL. Hip abduction WFL. Knee flexion 0-90 degrees. Ankle dorsiflexion to neutral only. Ankle plantarflexion WFL. Strength: Right Lower Extremity: Hip flexors 5/5. Hip abductors 5/5. Knee flexors 5/5. Knee extensors 5/5. Ankle dorsiflexors 5/5. Ankle plantarflexors 5/5. Left Lower Extremity:Hip flexors 4/5. Hip abductors 4/5. Knee flexors 3-/5. Knee extensors 4-/5. Patient was advised to call. Ankle plantarflexors 5/5. Sensation: Intact as to pain and light pressure in B LE Bed Mobility/Transfers: Minimal cueing provided for use of B hands as needed for support, movement sequence, AD management, and posture to reduce fall risk and minimize pain report Sit to stand stand by assist with FWW Stand to sit stand by assist Bed to chair stand by assist Gait: Facilitated safe and correct performance of level surface ambulation covering a distance of 150 feet with step through gait pattern using front wheeled walker with standby assist with minimal verbal cueing provided for correct and adequate weight distribution onto walker and feet to maximize safety while ensuring proper posture and limb advancement. Stairs: Guided patient with safe and correct negotiation of 3 x 4 inch steps and 2 x 6 inch steps while holding onto bilateral rails with step to gait pattern requiring minimal verbal cueing to increase flexion on the left knee during each ascent, hand placement, and posture. Balance: Static Sitting: Normal Dynamic Sitting: Normal Static Standing: Fair Dynamic Standing: Fair Special Tests: Mobility Limitations Standardized Measure [facility] AM-PAC 6 clicks Basic Mobility Inpatient Short Form: Raw Score: 23 CMS Score: 11% deficit Informed Consent/Education: Patient instructed in purpose of PT consult. Packet containing TKA exercise protocol has been given to patient. Education and training on initial set of exercises that can be done at home have been completed with patient. Trained patient with correct performance of exercises below to maximize motor control, joint flexibility, soft tissue extensibility of the L knee musculature: Access Code: [email or web address] URL: [email or web address] Date: 04/09/2024 Prepared by: Nevaeh Traore Exercises - Supine Quad Set - 1 x daily - 7 x weekly - 1 sets - 10 reps - 5 hold - Supine Heel Slide - 1 x daily - 7 x weekly - 1 sets - 10 reps - 5 hold - Supine Ankle Pumps - 1 x daily - 7 x weekly - 1 sets - 10 reps - 5 hold - Small Range Straight Leg Raise - 1 x daily - 7 x weekly - 1 sets - 10 reps - 5 hold - Seated March - 1 x daily - 7 x weekly - 1 sets - 10 reps - 5 hold Assessment: Archana is a 78-year-old female with degenerative joint disease of the left knee and status post left total knee arthroplasty on postoperative day 0. She requires the use of front wheeled walker for all mobility ADL performance to maximize independence and reduce fall risk. Dr. Ochoa's office after 2 to 3 days should dorsiflexion issue on the left persists. Patient presents with clinical signs and symptoms consistent with current/admitting diagnoses that have resulted to mobility limitations, gait instability, generalized weakness, and impairment of motor control as demonstrated by the following impairment level findings: 1. Decreased strength to left knee major muscle groups 2. Impaired standing balance 3. Limitation of joint range of motion in left knee Impairments are contributing to the following functional limitations: 1. Inability to safely ambulate without assistive device 2. Increase completion time for mobility ADL performance 3. Increased fall risk Patient is assessed as a 25783 moderate complexity based on the following: History: 78-year-old female with impairment level findings, functional limitations, and past medical history as indicated above Examination: Demonstrable impairment in strength, balance, and mobility level with underlying impairments and functional limitations as documented above Presentation: [id number] Decision Makin moderate complexity Goals: N/A. PT evaluation and 1-2 treatment sessions only for functional mobility training using recommended AD and for HEP instruction. Plan of Care/Treatment Plan: N/A. PT evaluation and 1-2 treatment session only for functional mobility training using recommended AD and for HEP instruction. DISCHARGE RECOMMENDATIONS: Home when medically cleared by orthopedic surgeon. Recommend outpatient PT services in order to optimize functional mobility outcomes and facilitate return to independent community ambulation without an assistive device. TREATMENT CODE/TIME: 52256 x 25 minutes for 1 unit (15: 4?15). Thank you for the opportunity to participate in the care of this patient. Please sign an return this page within 30 days if you agree with the above POC. Thank you! Physician Signature Date [facility]
--- NOTE | 2024-05-09 17:11 | W.PM.OP ---
Date of service: 05/09/24 Time of Service: 12:00 Operative Note Operative Note PRE-OP DIAGNOSIS: Left Knee Osteoarthritis with Valgus Deformity POST-OP DIAGNOSIS: same PROCEDURE: Left Total Knee Replacement with Intraoperative Navigation SURGEON: Jay Ochoa COMMERCIAL LITIGATION PARALEGAL: Juan Lucero ANESTHESIA TYPE: Spinal Refer to Anesthesia Record ESTIMATED BLOOD LOSS: 100 PATHOLOGY: none sent TOURNIQUET TIME: 0 COMPLICATIONS: None Patient was transported to: PACU Patient's condition: stable Implants: 1. Depuy Attune Cementless Cruciate Retaining Femoral Component, Size 6 Narrow 2. Depuy Attune Cementless Fixed Bearing Tibial Component, Size 5 3. Depuy Attune 6x10 CR/FB Poly 4. Depuy Attune Patellar Component, Size 35 Indications: I have seen Elena in clinic for symptoms of LEFT knee arthritis, confirmed with radiographic findings. She has exhausted nonoperative methods and was having significant limitations in daily function and desired better function and less pain. I discussed the technical details of a knee replacement. I explained the risks of the procedure to include, but not limited to, bleeding, infection, pain, stiffness, fracture, damage to nerves and vessels, damage to muscles and tendons, loosening, need for repeat procedure, blood clot and cardiopulmonary demise. Despite these risks, Elena elected to proceed. Findings: There was significant signs of arthritis throughout the knee with a large defect of the lateral femoral condyle and notable eburnation throughout the lateral compartment. Procedure Description: Elena was greeted in the preoperative holding area where the correct side was identified and marked. The consent was reviewed with the patient and signed. The history and physical was updated. All questions were answered. Preoperative mediacations were administered: Acetaminophen 1000mg, Celebrex 400mg, and Gabapentin 300mg. An adductor canal block was then administered by the anesthesia team in the DSU. She was taken back to the operating room. A spinal anesthestic was then administered. The patient was placed into the supine position on the operating room table. A nonsterile tourniquet was placed high onto the leg. Posts were placed for positioning during the procedure. All bony prominences were well padded. Prophylactic antibiotics in the form of Cefazolin were administered. 1g of Tranxemic Acid was given intravenously within 30 minutes of incision. The left leg was then prepped with Chloraprep and draped in a standard fashion with impervious stockinette. A second prep with Chloraprep was performed prior to application of Iodine impregnated skin protection. A timeout to confirm correct identity, side and site, procedure, allergies, anesthesia, and medical concerns was performed. With the knee in some flexion, a midline incision was made overlying the knee. Full thickness skin flaps were raised once the extensor mechanism was encountered. These were raised medially and laterally. Any bleeding was controlled with electrocautery. Once the extensor mechanism was fully exposed, a medial parapatellar arthrotomy was performed in a flexed position. All bleeding from the arthrotomy and the geniculate arteries was coagulated. A medial subperiosteal peel was performed with electrocautery to the midcoronal plane. The fat pad was removed while keeping the patellar tendon protected. The anterior distal femur synovium was removed for later visualization. The ACL and PCL were resected and the anterior horn of the lateral meniscus was transected. The knee was then flexed with the patella everted. Large osteophytes from the tibia were removed. Large osteophytes from the femur were removed. A single starting pin was then placed 1cm anterior to the PCL insertion and the notch in the direction of the femoral head. The OrthoAlign device was applied over the pin. It was oriented to be in line with the epicondylar axis and the trochlear groove. It was then pinned into place. The navigation computer was then turned on and calibrated. The distal femur cut was set at 0 degrees varus/valgus and 3 degrees flexion. The distal femur cutting guide then was positioned for a 9mm cut. The distal femur was cut with an oscillating saw while protecting the soft tissues. The tibia was then addressed. The OrthoAlign device was placed over the tibial tubercle and medial tibia and secured into position. Once again, OrthoAlign was calibrated and then set for a 0 degree varus/valgus cut and 6 degrees of posterior slope. With this locked into position, the cut thickness stylus was used to assess cut thickness. The lateral side, most involved side, was set for a 3mm cut. This was then held in position and pinned into place with 2 additional pins and a cross pin for stability. The medial and lateral collateral ligaments were protected and the cut was performed. With this completed, it was assessed and noted to be of appropriate dimensions. The guide and OrthoAlign was removed. A spacer block was inserted and the knee was brought into extension to ensure enough space was present. . The Orthoalign gap balancing device was then placed in extension. This was used to ensure that the ligaments were properly balanced with up to 2 to 3 mm laxity laterally compared medially. The extension gap was measured as 22mm. The knee was then brought into 90 degrees of flexion and the ligament transformation coach was once again placed. Under the same amount of force the flexion gap was measured. The Attune specific jig was placed and the flexion gap was made to match the extension gap. The femur was then sized as a size 6 narrow. The 4-in-1 cutting guide was the placed. An norman wing was used to confirm appropriate position of the anterior cut to avoid notching. This cutting guide was ensured to be flush on the cut surface and then pinned into place with headed pins. While protecting the soft tissues, quad tendon, and collateral ligaments, the anterior and posterior cuts were performed with a saw. The central two pins were removed and the posterior and anterior chamfers were cut next. The notch-cutting guide was placed. This was pinned to lateralize the femoral component as much as possible while keeping it flush on the cut surface. This was then pinned into position. A saw was used to make the notch cut. A rasp smoothed the cut surfaces. The medial and lateral menisci were removed. A trial femoral component was then inserted, impacted down to the cut surfaces, and the lug holes were drilled. A provisional trial tibial component was placed and the knee was brought through range of motion. The polyethylene was trialed until there was good flexion and extension with excellent stability to the medial and lateral collaterals. The patella was tracking without thumbs. A size 10mm polyethylene component provided the best range of motion and stability with less than 2mm gapping with medial and lateral stress and full extension without significant hyperextension. The tibial cut surface was fully exposed. The tibia was then sized as a 5. The tibia had been previously marked during trialing to correspond to the center of the tibial component to help with rotation. The trial was aligned to this juan, approximately rotated to the medial 1/3rd of the tibial tubercle. The trial was pinned into place. The tibia was prepared with a reamer and a keel punch and lug holes. The knee was then brought into extension and the patella was measured as 26mm. Using the patellar clamp and cut guide, this was resected to a flat surface with at least 13mm of thickness remaining. The size 35 patella fit the best. This was oriented and then clamped into position. The lugs were drilled. The trial components were removed. The final components were opened on the back table. The periosteal and capsular tissues, especially posteriorly, around the knee were then systematically injected with a periarticular cocktail consisting of 246mg of Ropivacaine, 0.5mg of Epinephrine, 0.08mg of Clonidine, and 30mg of Ketorolac, diluted to 100cc. On the back table, with the implants opened, the cement was mixed. One batch of high viscosity cement was prepared with vacuum assistance. After the cement was ready a small amount was placed on the cut surface of the patella and the patellar button was clamped into position and held. While the cement was hardening, the cementless knee components were placed. Starting with the tibial component, the tibia was subluxed anteriorly and the lug holes of the component were lined up. The tibia was then impacted with an impactor and mallet until the tibial component was in contact with the tibia. Then, the femoral component was inserted. The lug holes were aligned and the component was impacted into position. The final polyethylene component was inserted. The knee was irrigated with Surgiphor Betadine solution. This was allowed to sit in the knee for 3 minutes and then it was thoroughly irrigated out with saline. After the cement had finally cured, approximately 15min, the clamp was removed from the patella and the knee was taken through range of motion. The patella was tracking with a no-thumbs technique. The capsule was then reapproximated with a No. 1 Vicryl at multiple locations. The capsule was finally closed with a No. 2 Stratafix, barbed suture. Deep tissues were then reapproximated with 0 Vicryl and 2-0 Vicryl. The skin was closed with a running 3-0 Monocryl in a subcuticular fashion. This was reinforced with skin glue. A Mepilex silver dressing was applied along with a [id number] NELY wrap. A CryoCuff was applied. Elena was transferred to the hospital bed without difficulty an suffering no apparent complication. Elena has a good prognosis. Physical therapy will start today and without restrictions, weight-bearing as tolerated. Her home dose of Rivaroxaban will be used for DVT prophylaxis.
== END 2024-05-09 16:24 | disposition home or self-care (01) ==
PROVIDERS: PCP Nurse Practitioner Family; Visit Provider Student in an Organized Health Care Education/Training Program
PROC: (CPT 27447; principal; 2024-05-09 12:30)
DX: M17.12 Unilateral primary osteoarthritis, left knee (principal); G25.81 Restless legs syndrome; I48.91 Unspecified atrial fibrillation; E03.9 Hypothyroidism, unspecified; I10 Essential (primary) hypertension; R73.03 Prediabetes
CPT/HCPCS: 20985; 27447; 76942; 97162; C1776; C9290; J0665; J0690; J1100; J2001; J2371; J2401; J2405; J2704

== ENCOUNTER 2024-05-24 14:14 | Outpatient (CLI) | payer MEDICARE, SELFPAY ==
--- NOTE | 2024-05-24 11:19 | DI.RAD_ITS ---
Exam(s) XR KNEE LT 1V XR STANDING ALIGNMENT EXAM: XR STANDING ALIGNMENT and XR knee LT 1 V CLINICAL HISTORY: F/U LEFT TKA. TECHNIQUE: 2D digital imaging was performed. Five images were obtained. COMPARISON: CR XR STANDING ALIGNMENT from 02/02/2024 CR XR KNEE LT 2V AP,LAT from 02/02/2024 FINDINGS: BONES: The hips are well maintained. The patient is now status post left total knee replacement. Or thopedic hardware appears in good position. No suspicious lucencies are seen about the orthopedic tamayo rdware. There is soft tissue swelling of the left knee consistent with recent arthroplasty placement . Moderately severe degenerative changes are seen in the right knee characterized by joint space juliana rowing and osteophytes which are most prominent in the lateral femoral tibial joint. The ankles are well maintained.There is no significant leg length discrepancy. SOFT TISSUE: Normal. IMPRESSION: 1. Left total knee arthroplasty. 2. Arthrosis of the right knee. DATA REPOSITORY: RADIATION DOSE DELIVERED:
== END 2024-05-24 14:15 | disposition home or self-care (01) ==
LOC: DIORS 14:15
PROVIDERS: PCP Nurse Practitioner Family; Referring Provider Nurse Practitioner Family; Visit Provider Physician Assistant
DX: Z96.652 Presence of left artificial knee joint (principal); Z47.1 Aftercare following joint replacement surgery
CPT/HCPCS: 73560; 77073

== ENCOUNTER 2024-06-09 14:06 | Emergency (ER) | payer MEDICARE, SELFPAY ==
[2024-06-09] VITALS (12 sets, daily range): BP systolic 127–158; BP diastolic 55–80; PULSE 59–71; RESP 14–23; TEMP 36.5; O2SAT 90–98
--- OUTSIDE RECORDS SUMMARY | 2024-06-09 14:13 | XMS_ITS | Encounter Summary ---
[place] [address] Care Team Providers Care Certified Histologic Technician Name Role Phone Vicenta Ndiaye APRN Primary Care Provider [phone] Encounter Details Date Type Department Care Team [...] AM EST Hospital Encounter Non[place] [phone] Arrived documented as of this encounter Visit Diagnoses Not on filedocumented in this encounter Care Teams Certified Histologic Technician Relationship Specialty Start Date End Date Vicenat Ndiaye APRN [address] [place] [address] PCP - General Family Medicine 03/11/21 documented as of this encounter
--- OUTSIDE RECORDS SUMMARY | 2024-06-09 14:13 | XMS_ITS | Encounter Summary ---
Author Organization [place] [address] Care Team Providers Care Flatwork Presser Name Role Phone Vicenta Ndiaye APRN Primary Care Provider [phone] Reason for Referral * Diagnostic Test (Routine) - Closed Specialty Diagnoses / Procedures Referred By Contac t Referred To Contact Cardiology 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 regurgitation Procedures Echocardiogram Transthoracic Stacey Mike MD [facility] [address] [facility] [place] [address] Referral ID Status Reason Start Date Expiration Date V isits Requested Visits Authorized [id number] Closed Specialty Service Requested 05/19/2023 05/18/2024 1 1 Encounter Details Date Type Department Care Team (Late st Contact Info) Description 05/19/2023 10:40 AM EDT Office Visit Cardiology at [address] [phone] Stacey Mike MD [facility] [place] [address] Stress-induced cardiomyopathy; Moderate to severe [...] on Xarelto #intermittent AV conduction disease s/p [employer] Sci PPM #hypertension #hypothyroidism on Synthroid #MINOCA: NSTEMI in 01/2023 (cath showed nonobstructive disease) Social: 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 Spouse Jaime. Plays pickleball. 2children, 4 grandchildren. All local. 01/2023: Midsternal chest pain occurring at night. No provoked by activity or relieved by rest. [facility] 01/2023 showed nonobstructive CAD (<25% LAD [...] echo in 1month. Interim: ED visit at [facility] for chest pain. Negative biomarkers. Reportedly POCUS [...] week Drug use: Never Family history: Brother- [place] late 70s HTN HLD Mother- [place], Idiopathic hypertrophic subaortic stenosis Father-[place], SBE, congestive failure MEDICATIONS: Current Outpatient Medications [...] favor cardiac due to January troponins. January [facility] reviewed-no SCAD, no thrombus, nonobstructive. Episode [...] based on symptoms #Paroxysmal afib -continue DOAC #[employer] PPM -followed by EP Return in [...] AM EST Hospital Encounter Non-Invasive [place] [phone] Arrived documented as of this encounter Results * ECHO LMTD W CONTRAST W LMTD SPEC DOPP COLOR DOPP (05/19/2023 12:27 PM EDT) EF 60 HEART[facility] SYSTEM Anatomical Region Laterality Modality Cardiac Other 05/19/2023 11:2 2 AM EDT Narrative 05/19/2023 4:43 PM EDT ? Echocardiogram Report Name: GIOVANNI THACKER ? Study Date: 05/19/2023 11:22 AM ? [facility] 1945 [facility]: 63 in ? Account: [id number] Age: 77 yrs ? Weight: 174 lb Gender: Female ?BSA: 1.8 m2 Ordering Physician: STACEY MIKE Referring Physician: STACEY MIKE Performed By: Mario Brady RDCS Interpreting Fellow: Drea Peralta. Exam Location: [facility]. Interpretation Summary - Left ventricle is of [...] mitral regurgitation is improved. Procedure Limited - 56433. Color Doppler - 89606. limited spectral 36150. Image enhancement Optison was used for left [...] Location: : 1945 Height: 63 in Account: [id number] Age: 77 yrs Weight: 174 lb Gender: Female BSA: 1.8 m2 Ordering Physician: STACEY MIKE Referring Physician: STACEY MIKE Performed By: Mario Brady RDCS Interpreting Fellow: Drea Peralta. Exam Location: [facility]. Interpretation Summary - Left ventricle is of [...] mitral regurgitation is improved. Procedure Limited - 17717. Color Doppler - 68113. limited spectral 75858. Imageenhancement Optison was used for left ventricular [...] regurgitation documented in this encounter Care Teams Flatwork Presser Relationship Specialty Start Date End Date Vicenta Ndiaye APRN [address] [place] [address] PCP - General Family Medicine 03/11/21 documented as of this encounter
--- OUTSIDE RECORDS SUMMARY | 2024-06-09 14:13 | XMS_ITS | Encounter Summary ---
[place] [address] Care Team Providers Care High Raw Sugar Boiler Name Role Phone Vicenta Ndiaye APRN Primary Care Provider [phone] Encounter Details Date Type Department Care Team [...] AM EST Hospital Encounter Non-[place]vasive [place] [phone] Arrived documented as of this encounter Visit Diagnoses Not on filedocumented in this encounter Care Teams High Raw Sugar Boiler Relationship Specialty Start Date End Date Vicenta Ndiaye APRN [address] [place] [address] PCP - General Family Medicine 03/11/21 documented as of this encounter
--- OUTSIDE RECORDS SUMMARY | 2024-06-09 14:13 | XMS_ITS | Encounter Summary ---
[place] [address] Care Team Providers Care Internal Revenue Service Agent Name Role Phone Vicenta Ndiaye APRN Primary Care Provider [phone] Encounter Details Date Type Department Care Team [...] AM EST Hospital Encounter Non-Invasive [place] [phone] Arrived documented as of this encounter Visit Diagnoses Not on filedocumented in this encounter Care Teams Internal Revenue Service Agent Relationship Specialty Start Date End Date Vicenta Ndiaye APRN [address] [place] [address] PCP - General Family Medicine 03/11/21 documented as of this encounter
--- OUTSIDE RECORDS SUMMARY | 2024-06-09 14:13 | XMS_ITS | Encounter Summary ---
[place] [address] Care Team Providers Care Product Engineer Name Role Phone Vicenta Ndiaye APRN Primary Care Provider [phone] Encounter Details Date Type Department Care Team [...] EST Hospital Encounter Non-Invasive [place] [phone] Arrived documented as of this encounter Visit Diagnoses Not on filedocumented in this encounter Care Teams Product Engineer Relationship Specialty Start Date End Date Vicenta Ndiaye APRN [address] [place] [address] PCP - General Family Medicine 03/11/21 documented as of this encounter
--- OUTSIDE RECORDS SUMMARY | 2024-06-09 14:13 | XMS_ITS | Encounter Summary ---
[place] [address] Care Team Providers Care Finisher Card Tender Name Role Phone Vicenta Ndiaye APRN Primary Care Provider [phone] Encounter Details Date Type Department Care Team (Latest Contact Info) Description 10/17/2023 10:00 AM EST - 10/17/2023 11:59 PM [facility] Hospital Encounter [place] [address] Discharge Disposition: Home Social History Tobacco Use [...] Sig Dispensed Refills Start Date End Date rosuvastatin (Crestor) 5 mg tablet Take 1 [...] mouth daily. 09/08/2020 losartan (Cozaar) 25 mg tabletIndications:Hypert ension, unspecified type Take 2 tablets by mouth daily. 90 tablet 3 09/23/2023 05/11/2024 documented as of this encounter Plan of Treatment Upcoming Encounters Date Type Department Care Team (Late st Contact Info) Description 07/13/2024 10:00 AM EST Hospital Encounter Non-[place] [phone] Arrived documented as of this encounter Procedures [...] on filedocumented in this encounter Care Teams Finisher Card Tender Relationship Specialty Start Date End Date Vicenta Ndiaye APRN [address] [place] [address] PCP - General Family Medicine 03/11/21 documented as of this encounter
--- OUTSIDE RECORDS SUMMARY | 2024-06-09 14:13 | XMS_ITS | Referral Summary ---
Author Organization [facility] Address [address] [place] [address] Care Team Providers Care Event Sales Manager Name Role Phone Unavailable Primary Care Provider [...] RNA Qualitative Undetected Undetected 05/29/2020 14:58 EDT [facility] Blood VENOUS BLOOD / Unknown 05/27/2020 7:55 EDT 05/28/2020 16:33 EDT Narrative [facility] - 05/29/2020 14:58 EDT The quantification range of this assay is 15 IU/mL to 100,000,000 IU/mL. ??Testing was performed on the LUI Ampliprep/LUI TaqMan HCV v2.0 ([employer] Provider Outr Resulting Lab CHEMISTRY & BLOOD GAS ORDERABLES [facility] [address] [place] [address] from Last 3 Months or Most Recently Relevant to Health Maintenance
--- OUTSIDE RECORDS SUMMARY | 2024-06-09 14:13 | XMS_ITS | Encounter Summary ---
[place] [address] Care Team Providers Care Lodge Officer Name Role Phone Vicenta Ndiaye APRN Primary Care Provider [phone] Encounter Details Date Type Department Care Team [...] AM EST Hospital Encounter Non-[place] [phone] Arrived documented as of this encounter Visit Diagnoses Not on filedocumented in this encounter Care Teams Lodge Officer Relationship Specialty Start Date End Date Vicenta Ndiaye APRN [address] [place] [address] PCP - General Family Medicine 03/11/21 documented as of this encounter
--- OUTSIDE RECORDS SUMMARY | 2024-06-09 14:13 | XMS_ITS | Encounter Summary ---
[place] [address] Care Team Providers Care Vehicle Body Builder Name Role Phone Vicenta Ndiaye APRN Primary Care Provider [phone] Encounter Details Date Type Department Care Team [...] AM EST Hospital Encounter Non-[place]vasive [place] [phone] Arrived documented as of this encounter Visit Diagnoses Not on filedocumented in this encounter Care Teams Vehicle Body Builder Relationship Specialty Start Date End Date Vicenta Ndiaye APRN [address] [place] [address] PCP - General Family Medicine 03/11/21 documented as of this encounter
--- OUTSIDE RECORDS SUMMARY | 2024-06-09 14:13 | XMS_ITS | Encounter Summary ---
[place] [address] Care Team Providers Care Cathode Ray Tube Assembler Name Role Phone Senthil Vicenta ASIM Primary Care Provider [phone] Encounter Details Date Type Department Care Team (Late st Contact Info) Description 05/07/2024 Notes Only Cardiology at [address] [phone] Rhonda Mike MD [facility] [place] [place] [address] Social History Tobacco Use Types Packs/Day Years [...] of this encounter Progress Notes * Rhonda Mike MD - 05/07/2024 8:57 AM EDT Last follow up 08/2023. No CV complaints and >4METs. Known pAF on DOAC. Plan: -no cardiac testing needed before planned orthopedic surgery -DOAC can be held 3-5 days prior to surgery and resumed as soon as able post operatively documented in this encounter Plan of Treatment Upcoming Encounters Date Type Department Care Team (Late st Contact Info) Description 07/13/2024 10:00 AM [facility] Hospital Encounter [place] [address] Arrived documented as of this encounter Visit Diagnoses Not on filedocumented in this encounter Care Teams Cathode Ray Tube Assembler Relationship Specialty Start Date End Date Vicenta Ndiaye APRN [address] [place] [address] PCP - General Family Medicine 03/11/21 documented as of this encounter
--- OUTSIDE RECORDS SUMMARY | 2024-06-09 14:13 | XMS_ITS | Encounter Summary ---
[place] [address] Care Team Providers Care Electrical Electronics Engineer Name Role Phone Vicenta Ndiaye APRN [...] AM EST Hospital Encounter [place] [phone] Arrived documented as of this encounter Visit Diagnoses Not on filedocumented in this encounter Care Teams Electrical Electronics Engineer Relationship Specialty Start Date End Date Vicenta Ndiaye APRN [address] [place] [address] PCP - General Family Medicine 03/11/21 documented as of this encounter
--- OUTSIDE RECORDS SUMMARY | 2024-06-09 14:13 | XMS_ITS | Encounter Summary ---
[place] [address] Care Team Providers Care Pole Framer Name Role Phone Vicenta Ndiaye APRN Primary Care Provider [phone] Encounter Details Date Type Department Care Team (Latest Contact Info) Description 04/14/2024 10:00 AM EDT - 04/14/2024 11:59 PM EDT Hospital Encounter Non-[place] [address] Discharge Disposition: Home Social History Tobacco Use [...] [facility] Hospital Encounter Non-[place] [address] Arrived documented as of this encounter Visit Diagnoses Not on filedocumented in this encounter Care Teams Pole Framer Relationship Specialty Start Date End Date Vicenta Ndiaye APRN [address] [place] [address] PCP - General Family Medicine 03/11/21 documented as of this encounter
--- OUTSIDE RECORDS SUMMARY | 2024-06-09 14:13 | XMS_ITS | Encounter Summary ---
[place] [address] Care Team Providers Care Yard Stocker Name Role Phone Vicenta Ndiaye APRN Primary Care Provider [phone] Encounter Details Date Type Department Care Team [...] AM EST Hospital Encounter [place] [phone] Arrived documented as of this encounter Visit Diagnoses Not on filedocumented in this encounter Care Teams Yard Stocker Relationship Specialty Start Date End Date Vicenta Ndiaye APRN [address] [place] [address] PCP - General Family Medicine 03/11/21 documented as of this encounter
--- OUTSIDE RECORDS SUMMARY | 2024-06-09 14:13 | XMS_ITS | Encounter Summary ---
Author Organization [facility] [place] [address] Care Team Providers Care Oak Tanner Name Role Phone Senthil Vicenta DAILEY Primary Care Provider [phone] Encounter Details Date Type Department Care Team (Late st Contact Info) Description 09/15/2023 2:00 PM EST Office Visit Cardiology at [address] [address] Rhonda Mike MD [facility] [place] [address] Paroxysmal atrial fibrillation; Hyperlipidemia, unspecified hyperlipidemia type Social History Tobacco Use Types Packs/Day Years Used Date Smoking Tobacco: Former Passive Smoke Exposure: Past Smokeless Tobacco: Never Comments:college student for a few months Alcohol Use Standard Drinks/Week Comments Yes 3 (1 standard drink = 0.6 oz pur e alcohol) [facility] Inpatient Questions Answer Date Recorded Does [...] on Xarelto #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 Spouse Jaime. Plays pickleball. 2children, 4 grandchildren. All local. History: 01/2023: Midsternal chest pain occurring at night. No provoked by activity or relieved by rest. 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 January [facility] reviewed-no SCAD, no thrombus, nonobstructive. Episode recently [...] based on symptoms #Paroxysmal afib -continue DOAC #[employer] PPM -followed by EP Return in [...] AM EST Hospital Encounter [place] [phone] Arrived Scheduled Orders Name Type Priority Associated Diagnoses Orde r Schedule Lipid Panel (Reflex Direct LDL) Lab Routine Hyperlipidemia, unspecified hyperlipidemia type Expected: 09/15/2024, Expires: 03/15/2025 documented as of this encounter Visit Diagnoses Diagnosis Paroxysmal atrial fibrillation Atrial fibrillation Hyperlipidemia, unspecified hyperlipidemia type documented in this encounter Care Teams Oak Tanner Relationship Specialty Start Date End Date Vicenta Ndiaye APRN [address] [place] [address] PCP - General Family Medicine 03/11/21 documented as of this encounter
--- OUTSIDE RECORDS SUMMARY | 2024-06-09 14:13 | XMS_ITS | Encounter Summary ---
Author Organization [place] [address] Care Team Providers Care Household Coordinator Name Role Phone Senthil Vicenta DAILEY Primary Care Provider Reason for Visit * Reason Onset Date Comments Medication Refill 09/23/2023 Encounter Details Date Type Department Care Team (Late st Contact Info) Description 09/23/2023 Refill Cardiology at [address] [address] Rhonda Mike MD [facility] [place] [address] Medication Refill Social History Tobacco Use Types [...] AM EST Hospital Encounter [place] [address] Arrived documented as of this encounter Visit Diagnoses Diagnosis Hypertension, unspecified type documented in this encounter Care Teams Household Coordinator Relationship Specialty Start Date End Date Vicenta Ndiaye APRN [address] [place] [address] PCP - General Family Medicine 03/11/21 documented as of this encounter
--- OUTSIDE RECORDS SUMMARY | 2024-06-09 14:13 | XMS_ITS | Clinical Summary ---
Author Organization [facility] Address [address] [place] [address] Care Team Providers Care Accounting Machine Operator Name Role Phone Unavailable Primary Care Provider [...] RNA Qualitative Undetected Undetected 05/29/2020 14:58 EDT [facility] Blood VENOUS BLOOD / Unknown 05/27/2020 7:55 EDT 05/28/2020 16:33 EDT Narrative [facility] - 05/29/2020 14:58 EDT The quantification range of this assay is 15 IU/mL to 100,000,000 IU/mL. ??Testing was performed on the LUI Ampliprep/LUI TaqMan HCV v2.0 ([employer] Provider Outr Resulting Lab CHEMISTRY & BLOOD GAS ORDERABLES [facility] [address] [place] [address] from Last 3 Months or Most Recently Relevant to Health Maintenance
--- OUTSIDE RECORDS SUMMARY | 2024-06-09 14:13 | XMS_ITS | Encounter Summary ---
Author Organization [facility] [place] [address] Care Team Providers Care Application Packaging Consultant Name Role Phone Vicenta Ndiaye APRN Primary Care Provider [phone] Encounter Details Date Type Department Care Team (Late st Contact Info) Description 07/11/2023 1:00 PM EST Office Visit Cardiology at [address] [phone] Etta Ag, MIKE Pacemaker - dual lead [employer] Social History Tobacco Use Types Packs/Day Years Used Date Smoking Tobacco: Former Passive Smoke Exposure: Past Smokeless Tobacco: Never Comments:college student for a few months Alcohol Use Standard Drinks/Week Comments Yes 3 (1 standard drink = 0.6 oz pur e alcohol) [facility] Inpatient Questions Answer Date Recorded Does Anyone [...] Parameters at implant: LEAD AND GENERATOR DATA: Salvage Repairer Model # Serial # Generator [employer] [id number] Atrial Lead [employer] [id number] Ventricular Lead [employer] [id number] PACE/SENSE DATA: Sensed wave (mV) Threshold (V) Impedance (Ohms) Atrium 3.3 0.6 @ 0.4 ms 558 Ventricle 12.4 0.5 @ 0.4 ms 708 FINAL PROGRAMMING: Pacing: Mode Lower rate (ppm) Upper rate (ppm) DDDR 60 130 Settings: DDDR 60/130 Presenting rhythm: AP/LINK TRAINER Underlying rhythm: rates in the 30s Atrial Lead: P wave: 1.9mV Impedance: 624 ohms Threshold: 0.6V @ 0.4ms Ventricular Lead: R wave: 19.7mV Impedance: 874 ohms Threshold: 0.8V @ 0.4ms Since April 20, 2023 Heart rate histograms: Pacing percentages: AP 70%; LINK TRAINER 95% Mode switch episodes: none VHR: none Battery: 10 years Wound assessment: well healed left chest Reprogramming: Plan: remotely every 3 months, RTC in 1 year Provider: Etta Ag RN Attending: Dr. Case documented in this encounter Plan of Treatment Upcoming Encounters Date Type Department Care Team (Late st Contact Info) Description 07/13/2024 10:00 AM EST Hospital Encounter Non-Invasive [place] [address] Arrived documented as of this encounter Visit Diagnoses Diagnosis Pacemaker - dual lead [employer] Cardiac pacemaker in situ documented in this encounter Care Teams Application Packaging Consultant Relationship Specialty Start Date End Date Vicenta Ndiaye APRN [address] [place] [address] PCP - General Family Medicine 03/11/21 documented as of this encounter
--- OUTSIDE RECORDS SUMMARY | 2024-06-09 14:13 | XMS_ITS | Encounter Summary ---
Author Organization [facility] Address [address] [place] [address] Care Team Providers Care Hcc Coders Name Role Phone Unavailable Primary Care Provider Unavailabl e Encounter Details Date Type Department Care Team (Late st Contact Info) Description 05/28/2020 Lab Requisition [facility] Pathology & Laboratory Medicine - [address] [address] Outr Resulting Lab, Provider Social History Tobacco [...] RNA Qualitative Undetected Undetected 05/29/2020 14:58 EDT [facility] Blood VENOUS BLOOD / Unknown 05/27/2020 7:55 EDT 05/28/2020 16:33 EDT Narrative [facility] - 05/29/2020 14:58 EDT The quantification range of this assay is 15 IU/mL to 100,000,000 IU/mL. ??Testing was performed on the LUI Ampliprep/LUI TaqMan HCV v2.0 ([employer] Provider Outr Resulting Lab CHEMISTRY & BLOOD GAS ORDERABLES [facility] [address] [place] [address] documented in this encounter Visit Diagnoses Not on filedocumented in this encounter
--- OUTSIDE RECORDS SUMMARY | 2024-06-09 14:13 | XMS_ITS | Encounter Summary ---
[place] [address] Care Team Providers Care Yield Improvement Engineer Name Role Phone Vicenta Ndiaye APRN Primary Care Provider [phone] Encounter Details Date Type Department Care Team (Latest Contact Info) Description 07/19/2023 10:00 AM EST - 07/19/2023 11:59 PM [facility] Hospital Encounter Non-Invasive [place] [address] Discharge Disposition: Home Social History Tobacco Use [...] AM EST Hospital Encounter Non-Invasive [place] [address] Arrived documented as of this encounter Procedures [...] on filedocumented in this encounter Care Teams Yield Improvement Engineer Relationship Specialty Start Date End Date Vicenta Ndiaye APRN [address] [place] [address] PCP - General Family Medicine 03/11/21 documented as of this encounter
--- OUTSIDE RECORDS SUMMARY | 2024-06-09 14:13 | XMS_ITS | Encounter Summary ---
[facility] Organization [facility] [place] [address] Care Team Providers Care Forge Heater Name Role Phone Vicenta Ndiaye APRN Primary Care Provider [phone] Reason for Visit * Auth/Cert (Routine) Specialty Diagnoses / Procedures Referred By Contac t Referred To Contact Diagnoses Unspecified atrioventricular block Bradycardia, unspecified Paroxysmal atrial fibrillation AV block [I44.30]Bradycardia [R00.1]PAF (paroxysmal atrial fibrillation) [I48.0] Procedures PRO INSERT NEW OR REPLACE HEART PACER XVENOUS ATRIAL/VENTRICULAR ELECTROPHYSIOLOGY PROCEDURE INSERT PERM PACEMAKER W\TRANSVENOUS ELECTRODES; ATRIAL & VENTRICULAR (WRVU 8.52) Robin Alvarado MD [facility] [place] [address] [facility] Referral ID Status Reason Start Date Expiration Date Visits Re quested Visits Authorized [id number] 1 1 Encounter Details Date Type Department Care Team (Latest Contact Info) Description 04/08/2023 12:51 PM EDT - 04/12/2023 2:11 PM EDT Hospital Encounter Heart and Vascular Unit Level 4 [place] [id number] Robin Alvarado MD [facility] [place] [address] Delgado Sanches MD [facility] [place] [address] AV block; Bradycardia; PAF (paroxysmal atrial fibrillation); [...] Troponin level elevated Pacemaker - dual lead [employer] Resolved Hospital Problems No resolved problems to [...] hours. No results for input(s): PHART, PO2ART, KDF6NEG in the last 72 hours. No results for input(s): PHVEN, HQD5JKF, PO2VEN, WPX9VPM in the last 72 hours. Studies: TTE: [...] who have questions please contact the health critical care rn that requested your imaging first. Electronically signed by: Bettie Nieto MD, [facility] ([phone]), at 04/09/2023 7:12 AM Pending Studies and [...] Center 04/20/2023 10:30 AM Etta Ag RN [facility] 05/19/2023 10:40 AM Rhonda Mike MD [facility] Your Inpatient Medical Team at [facility] Name(s) of your inpatient provider(s): Chauncey Neri MD, Eren Lema MD, Eneida Berger MD Your Primary Care Provider: Vicenta Ndiaye, ASIM [phone] For questions regarding this document or issues relating to this hospitalization on the Medical Service, please contact your inpatient physician through the [facility] Vice President Of Engineering . Issues afterhours and on weekends will be handled by the Hospitalist staff on-call. General Instructions FINAL PACEMAKER RECOMMENDATIONS: 1. Standard post implant discharge instructions (see below): 2. Medications as listed above. Resume rivaroxaban(Xarelto) on TuesdayApril 11 PM You may use ice packs over the incision. Make sure to use a finished cloth examiner (such as a towel) in between the [...] F. The office scheduling phone number is [phone]. ARM MOVEMENT RESTRICTIONS POST-IMPLANT - Do not [...] please call the Cardiac ElectrophysiologyTriage Nurse at [phone], option 3. Future Appointments and Orders Future Appointments and Orders Future Appointments Provider Department Dept Phone 04/20/2023 10:30 AM Etta Ag RN Cardiology at [facility] Arrive at: Customer Experience Specialist Area 4A [phone] 05/19/2023 10:40 AM Rhonda Mike MD Cardiology at [facility] Arrive at: Customer Experience Specialist Area 4A [phone] Discharge References/Attachments: Discharge References/Attachments None Inpatient Provider Contact Information: Please call the hospital data entry operator at [phone] and ask to be connected with Cardiology Team S1 (pager [phone]). Electronically Signed By: Eren Lema MD 04/12/2023 [...] the incision. Make sure to use a finished cloth examiner (such as a towel) in between the [...] F. The office scheduling phone number is [phone]. ARM MOVEMENT RESTRICTIONS POST-IMPLANT - Do not [...] please call the Cardiac ElectrophysiologyTriage Nurse at [phone], option 3. * Patient Instructions* Eren Lema [...] Center 04/20/2023 10:30 AM Etta Ag RN [facility] 05/19/2023 10:40 AM Rhonda Mike MD [facility] C[facility]A [facility] Your Inpatient Medical Team at [facility] Name(s) of your inpatient provider(s): Chauncey Neri MD, Eren Lema MD, Eneida Berger MD Your Primary Care Provider: Vicenta Ndiaye APRN [phone] For questions regarding this document or issues relating to this hospitalization on the Medical Service, please contact your inpatient physician through the [facility] Vice President Of Engineering . Issues afterhours and on weekends will [...] Eren Lema MD, PGY-1 Cardiology S1 (Pager [phone]) 04/11/2023 Associated attestation - Chauncey Neri MD [...] to the Office of Care Management - Privacy Attorney. * Tristen Bruce MD - 04/10/2023 7:39 [...] Tristen Bruce MD, PGY-3 Cardiology S1 (Pager [phone]) 04/10/2023 Associated attestation - Delgado Sanches MD [...] of two midnights or is on the [facility] inpatient only procedure list (status C) due to: acute myocardial infarction requiring titration of IV medication and fluid monitoring Delgado Sanches MD Cardiovascular Medicine Personal Pager [phone] 04/10/2023 10:17 PM * Neema Babin MD [...] Babin MD, PGY-1 Cardiology S 1 (Pager [phone]) 04/09/2023 Associated attestation - Delgado Sanches MD [...] of two midnights or is on the [facility] inpatient only procedure list (status C) due to: acute myocardial infarction requiring titration of IV medication and fluid monitoring Delgado Sanches MD Cardiovascular Medicine Personal Pager [phone] 04/09/2023 10:41 PM * Bradley Krishnan PA - 04/09/2023 8:21 AM EDT Patient Name: Elena Thacker Patient Age: 77 y.o. Birthdate: 1945 Admit date: 04/08/2023 Attending Physician: Delgado Sanches MD Cardiac Electrophysiology Post-Implant Device Interrogation Elena Thacker [id number] 04/09/2023 History: Elena Thacker is a 77 y.o. female with a history of symptomatic bradycardia andintermittent high grade AV block, who is POD#1 of a left sided dual lead [employer] pacemaker implantation. During the procedure she developed some right arm pain that migrated to her anteriorchest and back. Initially this was thought to be secondary to procedural positioning, however it did not resolve with repositioning and felt to her, to be similar to that pain which [facility] LHC at that time showed very mild [...] to auscultation bilaterally Neuro- A&Ox3 Device Interrogation: Yarn Weight And Strength Tester Model # Serial # Generator [employer] [id number] Atrial Lead [employer] [id number] Ventricular Lead [employer] [id number] DDDR @ 60/130/130 AP 90%; FOUNDATION RELATIONS DIRECTOR 98% Battery and Leads Voltage: -- Status: [...] who is s/p left sided dual lead [employer] pacemaker implantation for sinus node dysfunction [...] Please feel free to contact EP Service (#[id number]), if additional issues arise, otherwise, EP signing off. Provider: MARGARITA Simmons EP Consult attending physician: Javi Quinteros MD EP Consult positional pager #[phone](EPME) EP Device interrogation positional pager # [phone] Associated attestation - Tae Quinteros MD - 04/09/2023 11:21 AM EDT Cardiac Electrophysiology Attending Addendum: The patient was seen, interviewed and examined by me, and Bradley Krishnan's note above was reviewed by me and agreed with. 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 Tae Quinteros MD, PhD, [facility] Cardiac Electrophysiology documented in this encounter H&P Notes * Yu Gonzalez MD - 04/09/2023 3:27 AM EDT Images from the original note were not included. Cardiology H&P Patient info: Name: Elena Thacker : 1945 PCP: Vicenta Ndiaye APRN PCP phone number: [phone] Date of Admission: 04/08/2023 ( Hospital Day [...] 2.25) performed by Janett Vidal MD at [facility] Family History No family [...] Gas) No results found for: PHART, PO2ART, CLV7IGW, HYW6UDI Microbiology: Microbiology Results (Last 30 days) No [...] to peak, resolution chest pain, checked by solar photovoltaic crew lead I personally performed 70 minutes of aggregate critical care time exclusive of procedures and teaching during this visit. This includes time spent during direct patient evaluation and reassessment, interpreting diagnostic tests, directing life and/or organ supporting interventions, and documentation. Yu Gonzalez MD [facility] Candle Making Supervisor, PGY-6 Pager #[phone] Can Epic message me 7AM-4PM on weekdays [...] in agreement. Family history is norable for DC in her father and subaortic stenosis in [...] of two midnights or is on the [facility] inpatient only procedure list (status C) due to: acute myocardial infarction requiring titration of IV medication and fluid monitoring Delgado Sanches MD Cardiovascular Medicine Personal Pager [phone] 04/09/2023 3:15 PM * Robin Alvarado MD [...] in agreement. Dr. Robin Alvarado, electrophysiology attending ([id number]) documented in this encounter Miscellaneous Notes * [...] surrogate would be surrogate decision maker per [place] surrogate decision making law. (Only good for 180 days) Any patient receiving care in [place] must abide by [place] law. The hierarchy for surrogate decision making is: (a) Patient???s spouse or civil union partner unless there is a divorce proceeding, separation agreement, or restraining order limiting that person???s relationship with the patient. Leon Keith (spouse) is [facility] [phone] (b) Any adult son or daughter of the patient. (c) Either parent of the patient. (d) Any adult brother or sister of the patient. (e) Any adult grandchild of the patient. (f) Any grandparent of the patient. (g) Any adult aunt, uncle, niece, or nephew of the patient. (h) A close friend of the patient. (i) The agent with financial power of research attorney or a conservator appointed in accordance [...] bar - tub/shower Home Address confirmed as: [address] [place] [phone] Social & Family Supports: All names listed below confirmed with patient as current and correct Extended Emergency Contact Information Primary Emergency Contact: Leon Keith Address: [address] [place] [id number] [place] [address] Mobile Relation: Other Current Care Provided by: [...] Coverage: Yes (AETNA Managed Medicare) Preferred Pharmacy: [facility] - [place], [place] - [address] [facility] [address] [facility] [address] Status: Patient is a : No Primary Care Provider confirmed: Vicenta Ndiaye, ASIM [phone] Patient/Caregiver Goals of Treatment: home with spouse [...] Operative Note Patient Name: Elena Thacker : [id number] MR#: [id number] Case Date: 04/08/2023 Surgeon: Surgeon(s) and Role: [...] AM EST Hospital Encounter Non[place] [address] Arrived Scheduled Orders Name Type Priority Associated [...] (Bezet) 533 ms MUSE SYSTEM Calculated P [place] 0 degrees MUSE SYSTEM Calculated R [place] -81 degrees MUSE SYSTEM Calculated T [place] 132 degrees MUSE SYSTEM INTERPRETATION AV dual-paced rhythm Abnormal ECG When compared with ECG of 11-APR-2023 06:47, Vent. rate has decreased BY ??33 BPM I personally reviewed the tracing and edited the fellows interpretation Confirmed by fellow MD Usha, Jacob ([id number]) on 04/13/2023 2:59:22 PM Confirmed by MD Jen, Aftab ([id number]) on 04/13/2023 4:42:47 PM MUSE SYSTEM 04/12/2023 6:53 AM EDT 04/13/2023 4:42 PM EDT Delgado Sanches MD ECG ORDERABLES MUSE SYSTEM * Differential, Automated (04/12/2023 3:53 AM EDT) Neutrophil % 40.4 % [facility] Neutrophil Absolute 2.01 1.70 - 6.10 x10(3)/[facility] Lymph % 45.8 % [facility] Lymphocytes Abs 2.3 0.9 - 3.2 x10(3)/[facility] Monocyte % 10.6 % [facility] Monocyte Abs 0.5 0.3 - 0.9 x10(3)/[facility] Eos % 1.8 % [facility] Eosinophils Abs 0.1 0.0 - 0.4 x10(3)/[facility] Basophil % 1.0 % [facility] Baso Absolute 0.0 0.0 - 0.1 x10(3)/[facility] LABORATORY Immature Gran % 0.40 % [facility] Comment: Immature granulocytes(IG's)percentage and absolute count will include metamyelocytes, myelocytes, and promyelocytes. Blood smears from CBCs yielding IG's will be scanned manually for concordance. If this scan disagrees with the automated IG or if promyelocytes are noted, a manual differential will be performed. Immature Gran Absolute 0.02 0.00 - 0.04 x10(3)/mcL [facility] Blood 04/12/2023 3:53 AM EDT 04/12/2023 4:05 AM EDT Narrative Resulting Agency Comment Spec In Lab Neema Babin MD HEMATOLOGY ORDERABLE S [facility] [place] [address] * (ABNORMAL) Hemogram (04/12/2023 3:53 AM EDT) White Blood Cell 5.0 4.0 - 9.5 x10(3)/mc L [facility] Red Blood Cell 3.78(L) 4.00 - 5.21 x10(6)/mc L [facility] Hemoglobin 11.8 11.7 - 15.5 g/dL [facility] Hematocrit 34.4(L) 35.7 - 45.8 % [facility] Mean Cell Volume 91.0 82.6 - 94.4 fL [facility] Mean Cell Hemoglobin 31.2 27.1 - 32.0 pg [facility] Mean Cell Hemoglobin Concentration 34.3 31.7 - 35.0 g/dL [facility] Platelet 143(L) 145 - 357 x10(3)/mc L [facility] RDW Standard Deviation 42.3 37.0 - 46.0 fL [facility] RDW coefficient of variation 12.8 11.5 - 14.1 % [facility] Mean Platelet Volume 10.1 7.6 - 12.9 fL [facility] NRBC% auto 0.0 % [facility] NRBC Absolute 0.000 0.000 - 0.000 x10(3)/mc L [facility] Blood 04/12/2023 3:53 AM EDT 04/12/2023 4:05 AM EDT Narrative Resulting Agency Comment Spec In Lab Neema Babin MD HEMATOLOGY ORDERABLE S Performing Organization Address City/[facility]/ZIP Co de Phone Number [facility] [place] [address] * (ABNORMAL) BMP w/fasting Glucose (04/12/2023 3:53 AM EDT) [facility] Signature Glucose Fasting 105(H) 65 - 99 mg/dL [facility] Comment: ?Fasting* Glucose Interpretive Criteria Normal [...] of Diabetes Mellitus, Position Statement from the [place] [employer]. ??Diabetes Care, Volume 33, Supplement 1, Aug 2009 Blood Urea Nitrogen 15 8 - 18 mg/dL [facility] Creatinine 0.74 0.70 - 1.20 mg/dL [facility] Sodium 134(L) 135 - 145 mmol/L [facility] Potassium 3.6 3.5 - 5.0 mmol/L [facility] Comment: Please note: ??Patients with WBC >100,000 may have falsely elevated Potassium levels. ??For accurate Potassium quantification in these patients send serum separator tube (gold top) for subsequent determinations. ??Contact the Clinical Chemistry Laboratory if there are any questions. Chloride 101 98 - 107 mmol/L [facility] Carbon Dioxide 22 22 - 31 mmol/L [facility] Anion Gap 11 5 - 15 mmol/L [facility] Calcium 8.9 8.5 - 10.5 mg/dL [facility] Est Glomerular Filtration Rate 83 >=60 mL/min/1. 73 m?? [facility] Comment: This patient's estimated GFR was [...] Sanches MD CHEMISTRY ORDERABLES Performing Organization Address City/[facility] Co de Phone Number [facility] [place] [address] * EKG 12 Lead (04/11/2023 6:47 AM EDT) Ventricular rate 95 BPM MUSE SYSTEM Atrial Rate 95 BPM MUSE SYSTEM P-R Interval 126 ms MUSE SYSTEM QRS Duration 154 ms MUSE SYSTEM Q-T Interval 422 ms MUSE SYSTEM QTC Calculated (Bezet) 530 ms MUSE SYSTEM Calculated P [place] 32 degrees MUSE SYSTEM Calculated R [place] -81 degrees MUSE SYSTEM Calculated T [place] 94 degrees MUSE SYSTEM INTERPRETATION Atrial-sensed ventricular-paced rhythm Abnormal ECG When compared with ECG of 10-APR-2023 06:27, Premature ventricular complexes are no longer Present Vent. rate has increased BY ??28 BPM I personally reviewed the tracing and edited the fellows interpretation Confirmed by fellow Jorge Brewer ([id number]) on 04/11/2023 5:14:52 PM Confirmed by MD Ellie, Martin ([id number]) on 04/12/2023 7:04:14 PM MUSE SYSTEM 04/11/2023 6:47 AM EDT 04/12/2023 7:04 PM EDT Delgado Sanches MD ECG ORDERABLES Performing Organization Address City/[facility]/ZIP Co de Phone Number MUSE SYSTEM * Differential, Automated (04/11/2023 2:44 AM EDT) Neutrophil % 63.9 % [facility] Neutrophil Absolute 3.93 1.70 - 6.10 x10(3)/[facility] LABORAT[facility] Lymph % 26.1 % [facility] Lymphocytes Abs 1.6 0.9 - 3.2 x10(3)/[facility]ORATORY Monocyte % 8.6 % [facility] Monocyte Abs 0.5 0.3 - 0.9 x10(3)/[facility]ORATORY Eos % 0.6 % [facility] Eosinophils Abs 0.0 0.0 - 0.4 x10(3)/[facility]ORAT[facility] Basophil % 0.5 % [facility] Baso Absolute 0.0 0.0 - 0.1 x10(3)/[facility]ORAT[facility] Immature Gran % 0.30 % [facility] Comment: Immature granulocytes(IG's)percentage and absolute count will include metamyelocytes, myelocytes, and promyelocytes. Blood smears from CBCs yielding IG's will be scanned manually for concordance. If this scan disagrees with the automated IG or if promyelocytes are noted, a manual differential will be performed. Immature Gran Absolute 0.02 0.00 - 0.04 x10(3)/[facility] Blood 04/11/2023 2:44 AM EDT 04/11/2023 3:25 AM EDT Narrative Resulting Agency Comment Spec In Lab Neema Babin MD HEMATOLOGY ORDERABLE S [facility] [place] [address] * Hemogram (04/11/2023 2:44 AM EDT) White Blood Cell 6.2 4.0 - 9.5 x10(3)/[facility] LAB[facility] Red Blood Cell 4.12 4.00 - 5.21 x10(6)/[facility] Hemoglobin 12.6 11.7 - 15.5 g/dL [facility] Hematocrit 37.6 35.7 - 45.8 % [facility] Mean Cell Volume 91.3 82.6 - 94.4 fL [facility] Mean Cell Hemoglobin 30.6 27.1 - 32.0 pg [facility] Mean Cell Hemoglobin Concentration 33.5 31.7 - 35.0 g/dL [facility] Platelet 152 145 - 357 x10(3)/[facility] LABORATORY RDW Standard Deviation 43.0 37.0 - 46.0 fL [facility] RDW coefficient of variation 13.0 11.5 - 14.1 % [facility] Mean Platelet Volume 10.6 7.6 - 12.9 fL [facility] NRBC% auto 0.0 % [facility] NRBC Absolute 0.000 0.000 - 0.000 x10(3)/mcL [facility] Blood 04/11/2023 2:44 AM EDT 04/11/2023 3:25 AM EDT Narrative Resulting Agency Comment Spec In Lab Neema Babin MD HEMATOLOGY ORDERABLE S Performing Organization Address [facility] Co de Phone Number [facility] [place] [address] * Heparin (unfractionated) Level (04/11/2023 2:44 AM EDT) UF Heparin 0.38 IU/mL [facility] Comment: Heparin (anti-Xa) levels should [...] MD HEMATOLOGY ORDERABLE S Performing Organization Address [facility]/ZIP Co de Phone Number [facility] [place] [address] * (ABNORMAL) BMP w/fasting Glucose (04/11/2023 2:44 [...] of Diabetes Mellitus, Position Statement from the [place] Diabetes [employer]. ??Diabetes Care, Volume 33, Supplement 1, Aug 2009 Blood Urea Nitrogen 10 8 - 18 mg/dL [facility] Creatinine 0.60(L) 0.70 - 1.20 mg/dL [facility] Sodium 134(L) 135 - 145 mmol/L [facility] Potassium 3.6 3.5 - 5.0 mmol/L [facility] Comment: Please note: ??Patients with WBC >100,000 may have falsely elevated Potassium levels. ??For accurate Potassium quantification in these patients send serum separator tube (gold top) for subsequent determinations. ??Contact the Clinical Chemistry Laboratory if there are any questions. Chloride 101 98 - 107 mmol/L [facility] Carbon Dioxide 22 22 - 31 mmol/L [facility] Anion Gap 11 5 - 15 mmol/L [facility] Calcium 9.2 8.5 - 10.5 mg/dL [facility] Est Glomerular Filtration Rate 92 >=60 mL/min/1. 73 m?? [facility] Comment: This patient's estimated GFR was [...] Sanches MD CHEMISTRY ORDERABLES Performing Organization Address [facility] Co de Phone Number [facility] [place] [address] * TSH [place] (04/11/2023 2:44 AM EDT) Thyroid Stimulating Hormone 3.18 0.27 - 4.20 mcIU/mL [facility] Comment: Reference Interval (mcIU/mL): Females: ??First Trimester: 0.23-3.88 ??Second Trimester: 0.22-3.90 ??Third Trimester: 0.44-4.66 Blood 04/11/2023 2:44 AM EDT 04/11/2023 3:25 AM EDT Narrative Resulting Agency Comment Spec In Lab Delgado Sanches MD CHEMISTRY ORDERABLES Performing Organization Address [facility] Co de Phone Number [facility] [place] [address] * EKG 12 Lead (04/10/2023 6:27 AM EDT) Ventricular rate 67 BPM MUSE SYSTEM Atrial Rate 67 BPM MUSE SYSTEM P-R Interval 166 ms MUSE SYSTEM QRS Duration 164 ms MUSE SYSTEM Q-T Interval 504 ms MUSE SYSTEM QTC Calculated (Bezet) 532 ms MUSE SYSTEM Calculated P [place] 32 degrees MUSE SYSTEM Calculated R [place] -72 degrees MUSE SYSTEM Calculated T [place] 132 degrees MUSE SYSTEM INTERPRETATION Atrial-sensed ventricular-pa mary rhythm Occasional Premature ventricular complexes Abnormal ECG When compared with ECG of 09-APR-2023 23:06, Premature ventricular complexes are now Present Vent. rate has increased BY ?? 4 BPM Confirmed by MD Dewey, Delgado ([id number]) on 04/11/2023 8:25:36 AM MUSE SYSTEM 04/10/2023 6:27 AM EDT 04/11/2023 8:25 AM EDT Delgado Sanches MD ECG ORDERABLES MUSE SYSTEM * Differential, Automated (04/10/2023 5:17 AM EDT) Neutrophil % 55.1 % [facility] Neutrophil Absolute 3.50 1.70 - 6.10 x10(3)/[facility] LABORATORY Lymph % 33.4 % [facility] Lymphocytes Abs 2.1 0.9 - 3.2 x10(3)/[facility] LABORATORY Monocyte % 8.8 % [facility] Monocyte Abs 0.6 0.3 - 0.9 x10(3)/[facility] LABORATORY Eos % 2.0 % [facility] Eosinophils Abs 0.1 0.0 - 0.4 x10(3)/[facility] LABORATORY Basophil % 0.5 % [facility] Baso Absolute 0.0 0.0 - 0.1 x10(3)/[facility] LABORATORY Immature Gran % 0.20 % [facility] Comment: Immature granulocytes(IG's)percentage and absolute count will include metamyelocytes, myelocytes, and promyelocytes. Blood smears from CBCs yielding IG's will be scanned manually for concordance. If this scan disagrees with the automated IG or if promyelocytes are noted, a manual differential will be performed. Immature Gran Absolute 0.01 0.00 - 0.04 x10(3)/[facility] LABORATORY Blood 04/10/2023 5:17 AM EDT 04/10/2023 5:21 AM EDT Narrative Resulting Agency Comment Spec In Lab Neema Babin MD HEMATOLOGY ORDERABLE S [facility] [place] [address] * Hemogram (04/10/2023 5:17 AM EDT) White Blood Cell 6.4 4.0 - 9.5 x10(3)/[facility] LABORATORY Red Blood Cell 4.29 4.00 - 5.21 x10(6)/[facility] LABORATORY Hemoglobin 13.4 11.7 - 15.5 g/dL [facility] Hematocrit 39.0 35.7 - 45.8 % [facility] Mean Cell Volume 90.9 82.6 - 94.4 fL [facility] Mean Cell Hemoglobin 31.2 27.1 - 32.0 pg [facility] Mean Cell Hemoglobin Concentration 34.4 31.7 - 35.0 g/dL [facility] Platelet 158 145 - 357 x10(3)/[facility] LABORATORY RDW Standard Deviation 42.9 37.0 - 46.0 fL [facility] RDW coefficient of variation 13.1 11.5 - 14.1 % [facility] Mean Platelet Volume 10.2 7.6 - 12.9 fL [facility] NRBC% auto 0.0 % [facility] LABORATORY NRBC Absolute 0.000 0.000 - 0.000 x10(3)/[facility] LABORATORY Blood 04/10/2023 5:17 AM EDT 04/10/2023 5:21 AM EDT Narrative Resulting Agency Comment Spec In Lab Neema Babin MD HEMATOLOGY ORDERABLE S [facility] [place] [address] * Heparin (unfractionated) Level (04/10/2023 5:17 AM EDT) UF Heparin 0.46 IU/mL [facility] Comment: Heparin (anti-Xa) levels should [...] Lab Delgado Sanches MD HEMATOLOGY ORDERABLE S [facility] [place] [address] * (ABNORMAL) BMP w/fasting Glucose (04/10/2023 5:17 AM EDT) Glucose Fasting 117(H) 65 - 99 mg/dL [facility] Comment: ?Fasting* Glucose Interpretive Criteria Normal [...] of Diabetes Mellitus, Position Statement from the [place] [employer]. ??Diabetes Care, Volume 33, Supplement 1, Aug 2009 Blood Urea Nitrogen 13 8 - 18 mg/dL [facility] Creatinine 0.64(L) 0.70 - 1.20 mg/dL [facility] Sodium 137 135 - 145 mmol/L [facility] Potassium 4.0 3.5 - 5.0 mmol/L [facility] Comment: Please note: ??Patients with WBC >100,000 may have falsely elevated Potassium levels. ??For accurate Potassium quantification in these patients send serum separator tube (gold top) for subsequent determinations. ??Contact the Clinical Chemistry Laboratory if there are any questions. Chloride 104 98 - 107 mmol/L [facility] Carbon Dioxide 22 22 - 31 mmol/L [facility] Anion Gap 11 5 - 15 mmol/L [facility] Calcium 9.2 8.5 - 10.5 mg/dL [facility] Est Glomerular Filtration Rate 91 >=60 mL/min/1. 73 m?? [facility] Comment: This patient's estimated [...] In Lab Delgado Sanches MD CHEMISTRY ORDERABLES [facility] [place] [address] * (ABNORMAL) Troponin (04/10/2023 5:17 AM EDT) Troponin-T, High Sensitivity 46(H) <=14 ng/L [facility] Comment: This patient's troponin T concentration [...] troponin value can be found in the [facility] Laboratory Test Catalog Troponin - [facility] Laboratory Test Catalog Reference: Fourth [place] Definition of Myocardial Infarction. Journal of the [place] [employer] 2018;72:5977-3641 Blood 04/10/2023 5:17 AM EDT 04/10/2023 5:21 AM EDT Narrative Resulting Agency Comment Spec In Lab Delgado Sanches MD CHEMISTRY ORDERABLES [facility] [place] [address] * EKG 12 Lead (04/09/2023 11:06 PM EDT) Ventricular rate 63 BPM MUSE SYSTEM Atrial Rate 63 BPM MUSE SYSTEM P-R Interval 168 ms MUSE SYSTEM QRS Duration 160 ms MUSE SYSTEM Q-T Interval 476 ms MUSE SYSTEM QTC Calculated (Bezet) 487 ms MUSE SYSTEM Calculated P [place] 40 degrees MUSE SYSTEM Calculated R [place] -64 degrees MUSE SYSTEM Calculated T [place] 108 degrees MUSE SYSTEM INTERPRETATION AV dual-paced rhythm Abnormal ECG When compared with ECG of 09-APR-2023 21:51, Vent. rate has decreased BY ?? 5 BPM Confirmed by Ilia Gil MD ([id number]) on 04/12/2023 4:41:40 PM MUSE SYSTEM 04/09/2023 11:0 6 PM EDT 04/12/2023 4:41 PM EDT Delgado Sanches MD ECG ORDERABLES Performing Organization Address City/[facility] Co de Phone Number MUSE SYSTEM * Heparin (unfractionated) Level (04/09/2023 10:19 PM EDT) UF Heparin 0.46 IU/mL [facility] Comment: Heparin (anti-Xa) [...] Lab Delgado Sanches MD HEMATOLOGY ORDERABLE S [facility] [place] [address] * (ABNORMAL) Troponin (04/09/2023 10:19 PM EDT) Troponin-T, High Sensitivity 60(H) <=14 ng/L [facility] Comment: This patient's troponin T concentration [...] troponin value can be found in the [facility] Test Catalog Troponin - [facility] Test Catalog Reference: Fourth [place] Definition of Myocardial Infarction. Journal of the [place] [employer] 2018;72:9123-7317 Blood 04/09/2023 10:1 9 PM EDT 04/09/2023 10:37 PM EDT Narrative Resulting Agency Comment Spec In Lab Delgado Sanches MD CHEMISTRY ORDERABLES [facility] [place] [address] * EKG 12 Lead (04/09/2023 9:51 PM EDT) Ventricular rate 68 BPM MUSE SYSTEM Atrial Rate 68 BPM MUSE SYSTEM P-R Interval 162 ms MUSE SYSTEM QRS Duration 164 ms MUSE SYSTEM Q-T Interval 492 ms MUSE SYSTEM QTC Calculated (Bezet) 523 ms MUSE SYSTEM Calculated P [place] 71 degrees MUSE SYSTEM Calculated R [place] -68 degrees MUSE SYSTEM Calculated T [place] 81 degrees MUSE SYSTEM INTERPRETATION AV dual-paced rhythm Abnormal ECG When compared with ECG of 08-APR-2023 18:57, Vent. rate has decreased BY ?? 3 BPM Confirmed by MD Sanches Danette ([id number]) on 04/11/2023 8:25:11 AM MUSE SYSTEM 04/09/2023 9:51 PM EDT 04/11/2023 8:25 AM EDT Robin Alvarado MD ECG ORDERABLES MUSE SYSTEM * (ABNORMAL) Troponin (04/09/2023 10:53 AM EDT) Troponin-T, High Sensitivity 84(H) <=14 ng/L [facility] Comment: This patient's troponin T concentration [...] troponin value can be found in the [facility] Test Catalog Troponin - [facility] Test Catalog Reference: Fourth [place] Definition of Myocardial Infarction. Journal of the [place] [employer] 2018;72:3662-8334 Blood 04/09/2023 10:5 3 AM EDT 04/09/2023 11:14 AM EDT Narrative Resulting Agency Comment Spec In Lab Delgado Sanches MD CHEMISTRY ORDERABLES [facility] [place] [address] * (ABNORMAL) Basic Metabolic Panel (non-fasting) (04/09/2023 10:53 AM EDT) Glucose 97 65 - 199 mg/dL [facility] Comment:Diabetes: >=200 mg/d L plus symptoms Blood Urea Nitrogen 9 8 - 18 mg/dL [facility] Creatinine 0.63(L) 0.70 - 1.20 mg/dL [facility] Sodium 140 135 - 145 mmol/L [facility] Potassium 4.1 3.5 - 5.0 mmol/L [facility] Comment: Please note: ??Patients with WBC >100,000 may have falsely elevated Potassium levels. ??For accurate Potassium quantification in these patients send serum separator tube (gold top) for subsequent determinations. ??Contact the Clinical Chemistry Laboratory if there are any questions. Chloride 107 98 - 107 mmol/L [facility] Carbon Dioxide 24 22 - 31 mmol/L [facility] Anion Gap 9 5 - 15 mmol/L [facility] Calcium 9.1 8.5 - 10.5 mg/dL [facility] Est Glomerular Filtration Rate 91 >=60 mL/min/1. 73 m?? [facility] Comment: This patient's estimated GFR was [...] In Lab Delgado Sanches MD CHEMISTRY ORDERABLES [facility] [place] [address] * ECHO LMTD W CONTRAST W LMTD SPEC DOPP COLOR DOPP (04/09/2023 8:10 AM EDT) EF 45 [employer] SYSTEM Anatomical Region Laterality Modality Cardiac Other 04/09/2023 7:37 AM EDT Narrative 04/09/2023 1:02 PM EDT ? Echocardiogram Report Name: ELENA THACKER ? Study Date: 04/09/2023 07:37 AMBP: 139/67 mmHg ? Patient Location: [facility]^SS01^A : 1945 ? Height: 160 cm ? Account: [id number] Age: 77 yrs ? Weight: 81 kg Gender: Female ?BSA: 1.8 m2 Ordering Physician: EDLGADO SANCHES Performed By: RAMON Choe Reason For Study: NSTEMI Exam Location: [facility]. Interpretation Summary Left ventricle is of [...] MR is more prominent. Procedure Limited - 67668. Color Doppler - 02317. limited spectral 31056. Image enhancement Optison was used for left [...] Study Date: 307:37 AMBP: 139/67 mmHg Patient Location:[facility]^SS01^A : 1945 Height: 160 cm Account: [id number] Age: 77 yrs Weight: 81 kg Gender: Female BSA: 1.8 m2 Ordering Physician: DELGADO SANCHES Performed By: RAMON Choe Reason For Study: NSTEMI Exam Location: [facility]. Interpretation Summary Left ventricle is of [...] MR is more prominent. Procedure Limited - 34444. Color Doppler - 33745. limited spectral 97399. Imageenhancement Optison was used for left ventricular [...] EDT) Glucose 97 65 - 199 mg/dL [facility] Comment:Diabetes: >=200 mg/d L plus symptoms Blood Urea Nitrogen 10 8 - 18 mg/dL [facility] Creatinine 0.66(L) 0.70 - 1.20 mg/dL [facility] Sodium 139 135 - 145 mmol/L [facility] Potassium 4.2 3.5 - 5.0 mmol/L [facility] Comment: Please note: ??Patients with WBC >100,000 may have falsely elevated Potassium levels. ??For accurate Potassium quantification in these patients send serum separator tube (gold top) for subsequent determinations. ??Contact the Clinical Chemistry Laboratory if there are any questions. Chloride 107 98 - 107 mmol/L [facility] Carbon Dioxide 25 22 - 31 mmol/L [facility] Anion Gap 7 5 - 15 mmol/L [facility] Calcium 9.1 8.5 - 10.5 mg/dL [facility] Est Glomerular Filtration Rate 90 >=60 mL/min/1. 73 m?? [facility] Comment: This patient's estimated GFR was [...] Sanches MD CHEMISTRY ORDERABLES Performing Organization Address City/[facility]/ZIP Co de Phone Number [facility] [place] [address] * Differential, Automated (04/09/2023 7:05 AM EDT) Neutrophil % 62.6 % [facility] Neutrophil Absolute 3.35 1.70 - 6.10 x10(3)/[facility] LABORATORY Lymph % 28.2 % [facility] LABORATORY Lymphocytes Abs 1.5 0.9 - 3.2 x10(3)/[facility] LABORATORY Monocyte % 7.7 % [facility] Monocyte Abs 0.4 0.3 - 0.9 x10(3)/[facility] LABORATORY Eos % 0.9 % [facility] Eosinophils Abs 0.0 0.0 - 0.4 x10(3)/[facility] LABORATORY Basophil % 0.4 % [facility] Baso Absolute 0.0 0.0 - 0.1 x10(3)/[facility] LABORATORY Immature Gran % 0.20 % [facility] Comment: Immature granulocytes(IG's)percentage and absolute count will include metamyelocytes, myelocytes, and promyelocytes. Blood smears from CBCs yielding IG's will be scanned manually for concordance. If this scan disagrees with the automated IG or if promyelocytes are noted, a manual differential will be performed. Immature Gran Absolute 0.01 0.00 - 0.04 x10(3)/[facility] LABORATORY Blood 04/09/2023 7:05 AM EDT 04/09/2023 7:23 AM EDT Narrative Resulting Agency Comment Spec In Lab Neema Babin MD HEMATOLOGY ORDERABLE S [facility] [place] [address] * Hemogram (04/09/2023 7:05 AM EDT) White Blood Cell 5.4 4.0 - 9.5 x10(3)/[facility] LABORATORY Red Blood Cell 4.29 4.00 - 5.21 x10(6)/[facility] LABORATORY Hemoglobin 13.6 11.7 - 15.5 g/dL [facility] Hematocrit 39.3 35.7 - 45.8 % [facility] Mean Cell Volume 91.6 82.6 - 94.4 fL [facility] Mean Cell Hemoglobin 31.7 27.1 - 32.0 pg [facility] Mean Cell Hemoglobin Concentration 34.6 31.7 - 35.0 g/dL [facility] Platelet 154 145 - 357 x10(3)/[facility] LABORATORY RDW Standard Deviation 42.7 37.0 - 46.0 fL [facility] RDW coefficient of variation 12.8 11.5 - 14.1 % [facility] Mean Platelet Volume 10.4 7.6 - 12.9 fL [facility] NRBC% auto 0.0 % [facility] NRBC Absolute 0.000 0.000 - 0.000 x10(3)/[facility] LABORATORY Blood 04/09/2023 7:05 AM EDT 04/09/2023 7:23 AM EDT Narrative Resulting Agency Comment Spec In Lab Neema Babin MD HEMATOLOGY ORDERABLE S [facility] [place] [address] * (ABNORMAL) BMP w/fasting Glucose (04/09/2023 7:05 AM EDT) Glucose Fasting 97 65 - 99 mg/dL [facility] Comment: ?Fasting* Glucose Interpretive Criteria Normal [...] of Diabetes Mellitus, Position Statement from the [place] [employer]. ??Diabetes Care, Volume 33, Supplement 1, Aug 2009 Blood Urea Nitrogen 10 8 - 18 mg/dL [facility] Creatinine 0.67(L) 0.70 - 1.20 mg/dL [facility] Sodium 137 135 - 145 mmol/L [facility] Potassium 4.1 3.5 - 5.0 mmol/L [facility] Comment: Please note: ??Patients with WBC >100,000 may have falsely elevated Potassium levels. ??For accurate Potassium quantification in these patients send serum separator tube (gold top) for subsequent determinations. ??Contact the Clinical Chemistry Laboratory if there are any questions. Chloride 104 98 - 107 mmol/L [facility] Carbon Dioxide 24 22 - 31 mmol/L [facility] Anion Gap 9 5 - 15 mmol/L [facility] Calcium 9.2 8.5 - 10.5 mg/dL [facility] Est Glomerular Filtration Rate 90 >=60 mL/min/1. 73 m?? [facility] Comment: This patient's estimated GFR was [...] In Lab Delgado Sanches MD [place] [address] * XR Chest PA & Lateral (Generic) [...] who have questions please contact the health critical care rn that requested your imaging first. ? Electronically signed by: Bettie Nieto MD, [facility] ([phone]), at 04/09/2023 7:12 AM Narrative 04/09/2023 7:12 [...] patients who have questions please contactthe health critical care rn that requested your imaging first. Electronically signed by: Bettie Nieto MD, [facility]([phone]), at 04/09/2023 7:12 AM Delgado Sanches MD IMG DX ORDERABLES * (ABNORMAL) Troponin (04/09/2023 4:00 AM EDT) [facility] Troponin-T, High Sensitivity 113(H) <=14 ng/L [facility] Comment: This patient's troponin T concentration [...] troponin value can be found in the [facility] Test Catalog Troponin - [facility] Test Catalog Reference: Fourth [place] Definition of Myocardial Infarction. Journal of the [place] [employer] 2018;72:8182-6583 Blood 04/09/2023 4:00 AM EDT 04/09/2023 4:24 AM EDT Narrative Resulting Agency Comment Spec In Lab Justina Tabor MD [place] [address] * (ABNORMAL) Troponin (04/08/2023 9:45 PM EDT) Troponin-T, High Sensitivity 100(H) <=14 ng/L [facility] Comment: This patient's troponin T concentration [...] troponin value can be found in the [facility] Test Catalog Troponin - [facility] Test Catalog Reference: Fourth [place] Definition of Myocardial Infarction. Journal of the [place] [employer] 2018;72:3790-2511 Blood 04/08/2023 9:45 PM EDT 04/08/2023 9:45 PM EDT Narrative Resulting Agency Comment Spec In Lab Robin Alvarado MD CHEMISTRY ORDERABLES Performing Organization Address City/[facility]/ZIP Co de Phone Number [facility] [place] [address] * (ABNORMAL) Troponin (04/08/2023 7:20 PM EDT) Troponin-T, High Sensitivity 28(H) <=14 ng/L [facility] Comment: This patient's troponin T concentration [...] troponin value can be found in the [facility] Test Catalog Troponin - [facility] Test Catalog Reference: Fourth [place] Definition of Myocardial Infarction. Journal of the [place] [employer] 2018;72:3435-0181 Blood 04/08/2023 7:20 PM EDT 04/08/2023 7:25 PM EDT Narrative Resulting Agency Comment Spec In Lab Robin Alvarado MD CHEMISTRY ORDERABLES [facility] [place] [address] * EKG 12 Lead (04/08/2023 6:57 PM EDT) Ventricular rate 71 BPM MUSE SYSTEM Atrial Rate 55 BPM MUSE SYSTEM QRS Duration 166 ms MUSE SYSTEM Q-T Interval 504 ms MUSE SYSTEM QTC Calculated (Bezet) 547 ms MUSE SYSTEM Calculated R [place] -69 degrees MUSE SYSTEM Calculated T [place] 65 degrees MUSE SYSTEM INTERPRETATION Ventricular-pa mary rhythm Occasional AV dual-paced complexes and with premature ventricular or aberrantly conducted complexes Abnormal ECG When compared with ECG of 31-MAR-2023 16:23, Electronic ventricular pacemaker has replaced Sinus rhythm Vent. rate has increased BY ??28 BPM Confirmed by MD Sanches Danette ([id number]) on 04/11/2023 8:24:56 AM MUSE SYSTEM 04/08/2023 6:57 PM EDT 04/11/2023 8:24 AM EDT Robin Alvarado MD ECG ORDERABLES MUSE SYSTEM * ELECTROPHYSIOLOGY PROCEDURE (04/08/2023 3:47 PM EDT) Anatomical Region Laterality Modality Other Narrative 04/08/2023 6:43 PM EDT Table formatting from the original result was not included. DUAL CHAMBER PACEMAKER IMPLANTATION Beauty Operator: Robin Alvarado MD Fellow: Ke Trejo MD [...] the entire procedure. 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 Restart rivaroxaban anticoagulation in 72 hours. Follow up in EP clinic in 2 weeks. Procedures performed: dual chamber pacemaker implantation (cpt 65438) I have reviewed, edited and approve of the above procedure note. I was present for the entire procedure and I was present for the entire sedation time. Robin Avlarado MD [facility] Cardiac Electrophysiology 04/08/2023 6:38 PM Procedure Note Robin Alvarado MD - 04/08/2023 DUAL CHAMBER PACEMAKER IMPLANTATION Beauty Operator: Robin Alvarado MD Fellow: Ke Trejo MD [...] procedure time) [facility] and the pocket closed in layers using 2-0, 3-0 and 4-0 absorbablesutures. The skin was closed using a sub-cuticular technique. Steri-stripsand a bio-occlusive dressing were applied to the skin. The patientremained hemodynamically stable, tolerated the procedure well and wastransferred in stable condition. Dr. Alvarado was present for andparticipated in the entire procedure. LEAD AND GENERATOR DATA: Yarn Weight And Strength Tester Model # Serial # Generator [employer] [id number] Atrial Lead [employer] [id number] Ventricular Lead [employer] [id number] PACE/SENSE DATA: Sensed wave (mV) Threshold (V) [...] (cGycm2) 400 CONCLUSIONS: Successful implantation of a [employer] dual chamber pacemaker forsymptomatic bradycardia due to sinus node dysfunction and AV block. Restart rivaroxaban anticoagulation in 72 hours. Follow up in EP clinic in 2 weeks. Procedures performed: dual chamber pacemaker implantation (cpt 67483) I have reviewed, edited and approve of the above procedure note. I waspresent for the entire procedure and I was present for the entire sedationtime. Robin Alvarado MD S Cardiac Electrophysiology 04/08/2023 6:38 PM Robin Alvarado MD EP PROCEDURE ORDERAB LES * Differential, Automated (04/08/2023 1:11 PM EDT) Neutrophil % 51.3 % [facility] Neutrophil Absolute 2.80 1.70 - 6.10 x10(3)/mcL [facility] Lymph % 38.3 % [facility] Lymphocytes Abs 2.1 0.9 - 3.2 x10(3)/[facility] LABORATORY Monocyte % 8.8 % [facility] Monocyte Abs 0.5 0.3 - 0.9 x10(3)/[facility] LABORATORY Eos % 0.9 % [facility] Eosinophils Abs 0.0 0.0 - 0.4 x10(3)/[facility] LABORATORY Basophil % 0.5 % [facility] Baso Absolute 0.0 0.0 - 0.1 x10(3)/[facility] LABORATORY Immature Gran % 0.20 % [facility] Comment: Immature granulocytes(IG's)percentage and absolute count will include metamyelocytes, myelocytes, and promyelocytes. Blood smears from CBCs yielding IG's will be scanned manually for concordance. If this scan disagrees with the automated IG or if promyelocytes are noted, a manual differential will be performed. Immature Gran Absolute 0.01 0.00 - 0.04 x10(3)/[facility] LABORATORY Blood 04/08/2023 1:11 PM EDT 04/08/2023 1:16 PM EDT Narrative Resulting Agency Comment Spec In Lab Meagan AVILA HEMATOLOGY ORDERABL ES [facility] [place] [address] * Hemogram (04/08/2023 1:11 PM EDT) White Blood Cell 5.5 4.0 - 9.5 x10(3)/[facility] LABORATORY Red Blood Cell 4.78 4.00 - 5.21 x10(6)/[facility] LABORATORY Hemoglobin 14.8 11.7 - 15.5 g/dL [facility] Hematocrit 44.0 35.7 - 45.8 % [facility] Mean Cell Volume 92.1 82.6 - 94.4 fL [facility] Mean Cell Hemoglobin 31.0 27.1 - 32.0 pg [facility] Mean Cell Hemoglobin Concentration 33.6 31.7 - 35.0 g/dL [facility] Platelet 186 145 - 357 x10(3)/[facility] LABORATORY RDW Standard Deviation 43.4 37.0 - 46.0 fL [facility] RDW coefficient of variation 12.8 11.5 - 14.1 % [facility] Mean Platelet Volume 10.3 7.6 - 12.9 fL [facility] NRBC% auto 0.0 % [facility] NRBC Absolute 0.000 0.000 - 0.000 x10(3)/[facility] LABORATORY Blood 04/08/2023 1:11 PM EDT 04/08/2023 1:16 PM EDT Narrative Resulting Agency Comment Spec In Lab Meagan AVILA HEMATOLOGY ORDERABL ES [facility] [place] [address] * (ABNORMAL) Basic Metabolic Panel (non-fasting) (04/08/2023 1:11 PM EDT) Glucose 100 65 - 199 mg/dL [facility] Comment:Diabetes: >=200 mg/d L plus symptoms Blood Urea Nitrogen 13 8 - 18 mg/dL [facility] Creatinine 0.69(L) 0.70 - 1.20 mg/dL [facility] Sodium 137 135 - 145 mmol/L [facility] Potassium 4.2 3.5 - 5.0 mmol/L [facility] Comment: Please note: ??Patients with WBC >100,000 may have falsely elevated Potassium levels. ??For accurate Potassium quantification in these patients send serum separator tube (gold top) for subsequent determinations. ??Contact the Clinical Chemistry Laboratory if there are any questions. Chloride 103 98 - 107 mmol/L [facility] Carbon Dioxide 22 22 - 31 mmol/L [facility] Anion Gap 12 5 - 15 mmol/L [facility] Calcium 9.6 8.5 - 10.5 mg/dL [facility] Est Glomerular Filtration Rate 89 >=60 mL/min/1. 73 m?? [facility] Comment: This patient's estimated GFR was [...] Vidal MD CHEMISTRY ORDERABLES Performing Organization Address City/State/[facility] Co de Phone Number [facility] [place] [address] documented in this encounter Visit Diagnoses Diagnosis [...] pain, unspecified type Pacemaker - dual lead [employer] Cardiac pacemaker in situ Troponin level [...] Routine documented in this encounter Care Teams Forge Heater Relationship Specialty Start Date End Date Vicenta Ndiaye APRN [address] [place] [address] PCP - General Family Medicine 03/11/21 documented as of this encounter
--- OUTSIDE RECORDS SUMMARY | 2024-06-09 14:13 | XMS_ITS | Encounter Summary ---
Author Organization [facility] [place] [address] Care Team Providers Care Health Support Specialist Name Role Phone Vicenta Ndiaye APRN Primary Care Provider [phone] Reason for Visit * Reason Onset Date Comments Medication Refill 05/14/2024 Encounter Details Date Type Department Care Team (Late st Contact Info) Description 05/14/2024 Refill Cardiology at [address] [address] Olivia Mike, BARBACK 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
--- OUTSIDE RECORDS SUMMARY | 2024-06-09 14:13 | XMS_ITS | Encounter Summary ---
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 Procedures Echocardiogram Transthoracic Stacey Mike MD [facility] [place] [place] [address] Health [place] [address] Referral ID Status Reason Start Date Expiration Date V isits Requested Visits Authorized [id number] Closed Specialty Service Requested 05/19/2023 05/18/2024 1 1 Reason for Visit * Diagnostic Test (Routine) - Closed Specialty Diagnoses / Procedures Referred By Contac t Referred To Contact Cardiology 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 regurgitation Procedures Echocardiogram Transthoracic Stacey Mike MD [facility] [place] [address] [facility] [place] [address] Referral ID Status Reason Start Date Expiration Date V isits Requested Visits Authorized [id number] Closed Specialty Service Requested 05/19/2023 05/18/2024 1 1 Encounter Details Date Type Department Care Team (Late st Contact Info) Description 05/19/2023 11:03 AM EDT - 05/19/2023 11:59 PM EDT Hospital Encounter Non-Invasive Cardiology Lab [facility] [place] [address] Stacey Mike MD [facility] [place] [address] Stress-induced cardiomyopathy; Moderate to severe mitral regurgitation [...] AM EST Hospital Encounter Non-[place] [address] Arrived documented as of this encounter Procedures Procedure Name Priority Date/Time Associated Diagnosis Comments ECHO LMTD W CONTRAST W LMTD SPEC DOPP COLOR DOPP Routine 05/19/2023 12:27 PM EDT 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 Echocardiogram Report Name: GIOVANNI THACKER ? Study Date: 05/19/2023 11:22 AM ? Patient Location: : 1945 ? Height: 63 in ? Account: [id number] Age: 77 yrs ? Weight: 174 lb Gender: Female ?BSA: 1.8 m2 Ordering Physician: STACEY MIKE Referring Physician: STACEY MIKE Performed By: Mario Brady RDCS Interpreting Fellow: Drea Peralta. Exam [place] [facility] Interpretation Summary - Left ventricle is of [...] mitral regurgitation is improved. Procedure Limited - 14135. Color Doppler - 02776. limited spectral 82038. Image enhancement Optison was used for left [...] Palomo MD - 05/19/2023 Echocardiogram Report Name: DOISELAON-BRASSARD, GIOVANNI R Study Date: :22 AM Patient Location: : 1945 Height: 63 in Account: [id number] Age: 77 yrs Weight: 174 lb Gender: Female BSA: 1.8 m2 Ordering Physician: STACEY MIKE Referring Physician: STACEY MIKE Performed By: Mario Brady RDCS Interpreting Fellow: Drea Peralta. Exam Location: [facility] [place]. Interpretation Summary - Left ventricle is of [...] mitral regurgitation is improved. Procedure Limited - 24919. Color Doppler - 96187. limited spectral 60685. Imageenhancement Optison was used for left ventricular [...] mLs documented in this encounter Care Teams Certified Technician Specialist Relationship Specialty Start Date End Date Vicenta Ndiaye APRN [address] [place] [address] PCP - General Family Medicine 03/11/21 documented as of this encounter
--- OUTSIDE RECORDS SUMMARY | 2024-06-09 14:13 | XMS_ITS | Encounter Summary ---
Author Organization [facility] [place] [address] Care Team Providers Care Media Services Director Name Role Phone Vicenta Ndiaye APRN Primary Care Provider [phone] Encounter Details Date Type Department Care Team (Late st Contact Info) Description 05/04/2024 Telephone Cardiology at [address] [phone] Shantal Hilton, RN Social History Tobacco Use Types Packs/Day Years Used Date Smoking Tobacco: Former Passive Smoke Exposure: Past Smokeless Tobacco: Never Comments:college student for a few months Alcohol Use Standard Drinks/Week Comments Yes 3 (1 standard drink = 0.6 oz pur e alcohol) [facility] Inpatient Questions Answer Date Recorded Does Anyone [...] encounter Miscellaneous Notes * Telephone Encounter - Shantal Hilton RN - 05/04/2024 12:11 PM EDT TC from MIKE Hough, with [facility], for Dr Jay Ochoa, Patient scheduled for Complete Knee Replacement, and had pre op today, discovered history of AtrialFibrillation, for surgery 05/09/2024. Request for Cardiology Clearance. 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 January [facility] reviewed-no SCAD, no thrombus, nonobstructive. Episode recently [...] based on symptoms #Paroxysmal afib -continue DOAC #[employer] PPM -followed by EP Return in [...] <70mg/dL. Rhonda Mike MD 09/17/2023 3:32 PM //////////////////////////////////////////////////////////////////////////////// /////// Forwarding to Dr Mike for review and recommendations. Fax for [facility]: [phone]. Shantal Hilton RN (Jodie), BSN [facility] documented in this encounter Plan of Treatment Upcoming Encounters Date Type Department Care Team (Late st Contact Info) Description 07/13/2024 10:00 AM EST Hospital Encounter Non-[place] [address] Arrived documented as of this encounter Visit Diagnoses Not on filedocumented in this encounter Care Teams Media Services Director Relationship Specialty Start Date End Date Vicenta Ndiaye APRN [address] [place] [address] PCP - General Family Medicine 03/11/21 documented as of this encounter
--- OUTSIDE RECORDS SUMMARY | 2024-06-09 14:13 | XMS_ITS | Encounter Summary ---
[place] [address] Care Team Providers Care Rate Marker Name Role Phone Vicenta Ndiaye APRN Primary Care Provider [phone] Reason for Visit * Auth/Cert (Routine) Specialty Diagnoses / Procedures Referred By Contac t Referred To Contact Diagnoses Unspecified atrioventricular block Bradycardia, unspecified Paroxysmal atrial fibrillation AV block [I44.30]Bradycardia [R00.1]PAF (paroxysmal atrial fibrillation) [I48.0] Procedures PRO INSERT NEW OR REPLACE HEART PACER XVENOUS ATRIAL/VENTRICULAR ELECTROPHYSIOLOGY PROCEDURE INSERT PERM PACEMAKER W\TRANSVENOUS ELECTRODES; ATRIAL & VENTRICULAR (WRVU 8.52) Robin Alvarado MD [facility] [place] [address] [place] [address] [facility] Referral ID Status Reason Start Date Expiration Date Visits Re quested Visits Authorized [id number] 1 1 Encounter Details Date Type Department Care Team (Latest Contact Info) Description 04/09/2023 7:15 AM EDT - 04/09/2023 11:59 PM EDT Hospital Encounter Non[place] [phone] Discharge Disposition: Home Social History Tobacco Use Types Packs/Day Years Used Date Smoking Tobacco: Former Passive Smoke Exposure: Past Smokeless Tobacco: Never Comments:college student for a few months Alcohol Use Standard Drinks/Week Comments Yes 3 (1 standard drink = 0.6 oz pur e alcohol) [facility] Inpatient Questions Answer Date Recorded Does [...] AM EST Hospital Encounter Non-[place] [phone] Arrived documented as of this encounter Procedures [...] mLs documented in this encounter Care Teams Rate Marker Relationship Specialty Start Date End Date Vicenta Ndiaye APRN [address] [place] [address] PCP - General Family Medicine 03/11/21 documented as of this encounter
--- OUTSIDE RECORDS SUMMARY | 2024-06-09 14:13 | XMS_ITS | Encounter Summary ---
Author Organization [facility] [place] [address] Care Team Providers Care Spline Rolling Machine Job Setter Name Role Phone Vicenta Ndiaye APRN Primary Care Provider [phone] Encounter Details Date Type Department Care Team (Late st Contact Info) Description 04/20/2023 10:30 AM EDT Office Visit Cardiology at [address] [address] Etta Ag, MIKE Pacemaker - dual lead [employer] Social History Tobacco Use Types Packs/Day Years [...] Parameters at implant: LEAD AND GENERATOR DATA: Veneer Clipper Model # Serial # Generator [employer] [id number] Atrial Lead [employer] [id number] Ventricular Lead [employer] [id number] PACE/SENSE DATA: Sensed wave (mV) Threshold (V) Impedance (Ohms) Atrium 3.3 0.6 @ 0.4 ms 558 Ventricle 12.4 0.5 @ 0.4 ms 708 FINAL PROGRAMMING: Pacing: Mode Lower rate (ppm) Upper rate (ppm) DDDR 60 130 Settings: DDDR 60/130 Presenting rhythm: /MENTAL HEALTH AIDE, AP,MENTAL HEALTH AIDE Underlying rhythm: rates in the 30s Atrial Lead: P wave: 2.0mV Impedance: 581 ohms Threshold: 0.4V @ 0.4ms Ventricular Lead: R wave: 18.8mV Impedance: 669 ohms Threshold: 0.7V @ 0.4ms Since April 09, 2023 Heart rate histograms: Pacing percentages: AP 62%; MENTAL HEALTH AIDE 99% Mode switch episodes: none VHR: none [...] st Contact Info) Description 07/13/2024 10:00 AM [facility] Hospital Encounter Non[place] [address] Arrived documented as of this encounter Visit Diagnoses Diagnosis Pacemaker - dual lead [employer] Cardiac pacemaker in situ documented in this encounter Care Teams Spline Rolling Machine Job Setter Relationship Specialty Start Date End Date Vicenta Ndiaye APRN [address] [place] [address] PCP - General Family Medicine 03/11/21 documented as of this encounter
--- OUTSIDE RECORDS SUMMARY | 2024-06-09 14:13 | XMS_ITS | Clinical Summary ---
Author Organization [facility] [place] [address] Care Team Providers Care Solution Developer Name Role Phone Vicenta Ndiaye APRN Primary Care Provider Allergies Active Allergy Reactions Criticality Noted Date [...] 90 tablet 3 09/15/2023 Active losartan (Cozaar) 50 mg tabletIndications:Hyp ertension, unspecified type Take 1 tablet by mouth daily. 90 tablet 3 05/14/2024 Active Active Problems Problem Noted Date Diagnosed Date Stress-induced cardiomyopathy 05/19/2023 Troponin level elevated 04/09/2023 Pacemaker - dual lead [employer] 04/08/20 23 Atrial fibrillation 02/26/2021 Hypertension 02/26/2021 Hypothyroidism 02/26/2021 Resolved Problems Problem Noted Date Diagnosed Date Resolved Date NSTEMI (non-ST elevation sabrina cardial infarction) 04/09/2023 05/19/2023 NSTEMI (non-ST elevated myoc ardial infarction) 02/06/2023 05/19/2023 Encounters Date Type Department Care Team Description 05/14/2024 Refill Cardiology at [address] [address] Olivia Mike APRN Medication Refill 05/10/2024 Refill Cardiology at [address] [address] Rhonda Mike MD Medication Refill 05/07/2024 Notes Only Cardiology at [address] [address] Rhonda Mike MD 05/04/2024 Telephone Cardiology at [address] [phone] Shantal Hilton RN 04/14/2024 10:00 AM EDT - 04/14/2024 11:59 PM EDT Hospital Encounter [place] [address] Discharge Disposition: Home from Last 3 Months Social History Tobacco Use Types Packs/Day Years Used Date Smoking Tobacco: Former Passive Smoke Exposure: Past Smokeless Tobacco: Never Tobacco Cessation:Counseling Given: No Comments:college student for a few months Alcohol Use Standard Drinks/Week Comments Yes 3 (1 standard drink = 0.6 oz pur e alcohol) [facility] Inpatient Questions Answer Date Recorded Does Anyone [...] AM EST Hospital Encounter [place] [address] Arrived Health Maintenance Due Date Last Done Comments Pneumoccocal Vaccine: 65+ (1 of 2 - PCV) 1951 Tetanus/Diphtheria/Pertussis Vaccines (1 - Tdap) 09/14 Zoster vaccine (1 of 2) 1995 Advance Directive 2000 Bone Density Scan 2010 Covid-19 Vaccine (1 - 2022- season) 2024 Influenza (Flu) vaccine (1 o f 1 - Influenza standard series) 04/29/2024 Hepatitis C Screening Completed 11/26/2016 Breast Cancer screening Discontinued 05/17/2017 Medical Devices Implanted Type Area Conceptor Device Identifier Shelf Expiration Date Model / Serial / Lot Bsx: [id number]: [id number] Implanted:06/2023 by Robin Alvarado MD (Quantity not on file) Lead Chest Wall [employer] 7841 / [id number] / Bsx: [id number]: [id number] Implanted:06/2023 by Robin Alvarado MD (Quantity not on file) Lead Heart [employer] 7842 / [id number] / Bsx: [id number]: [id number] Implanted:06/2023 by Robin Alvarado MD (Quantity not on file) Pacemaker Chest Wall [employer] [id number] / [id number] / Procedures Procedure Name Priority Date/Time Associated Diagnosis Comments CARDIAC DEVICE CHECK - REMOTE Routine 05/16/2024 7:04 AM EDT MAMMO SCREENING CAD AND JEFFRY BILATERAL Routine 05/17/2017 11:30 AM EDT HEPATITIS C ANTIBODY Routine 11/26/2016 7:58 AM EDT from Last 3 Months or Most Recently Relevant to Health Maintenance Results * Cardiac Device Check - Remote (05/16/2024 7:04 AM EDT) Anatomical Region Laterality Modality Other 05/16/2024 7:04 AM EDT Tae Quinteros MD IMPLANTABLE CARDIAC DEVICE * Mammo Screen CAD and Jeffry Bilat [...] Diagnostic imaging of theleft breast. Daniella Denny CUTTER FIRST IMG MAMMO ORDER JOAO * (ABNORMAL) Hepatitis [...] Status decision made by: Patient Care Teams Solution Developer Relationship Specialty Start Date End Date Vicenta Ndiaye APRN [address] [place] [address] PCP - General Family Medicine 03/11/21
--- OUTSIDE RECORDS SUMMARY | 2024-06-09 14:13 | XMS_ITS | Encounter Summary ---
Author Organization [facility] [place] [address] Care Team Providers Care Telecom Specialist Name Role Phone Vicenta Ndiaye APRN Primary Care Provider [phone] Reason for Visit * Reason Comments Medication Refill Encounter Details Date Type Department Care Team (Late st Contact Info) Description 05/10/2024 Refill Cardiology at [address] [address] Rhonda Mike MD [facility] [address] Medication Refill Social History Tobacco Use Types [...] encounter Miscellaneous Notes * Telephone Encounter - Earlene Villanueva RN - 05/10/2024 3:14 PM EDT [facility] 09/15/23 Assessment and Plan: #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 January [facility] reviewed-no SCAD, no thrombus, nonobstructive. Episode recently [...] based on symptoms #Paroxysmal afib -continue DOAC #[employer] PPM -followed by EP Return in about 1 year (around 09/15/2024) for In Person. Patient instructions: Next week: Send me your blood pressures and how you feel off bisoprolol. If you have recurrent chest discomfort, we may need to restart it. If your blood pressure is up over 130/80 at home, we may adjust your losartan. Rhonda Mike MD 09/22/23 message increased losartan to 50 mg daily NOV Recall 09/14/24 Last RF 09/23/23 #90 3RF documented in this encounter Plan of Treatment Upcoming Encounters Date Type Department Care Team (Late st Contact Info) Description 07/13/2024 10:00 AM [facility] Hospital Encounter [place] [address] Arrived documented as of this encounter Visit Diagnoses Diagnosis Hypertension, unspecified type documented in this encounter Care Teams Telecom Specialist Relationship Specialty Start Date End Date Vicenta Ndiaye APRN [address] [place] [address] PCP - General Family Medicine 03/11/21 documented as of this encounter
--- OUTSIDE RECORDS SUMMARY | 2024-06-09 14:13 | XMS_ITS | Encounter Summary ---
[place] [address] Care Team Providers Care Checker Name Role Phone Vicenta Ndiaye APRN Primary Care Provider [phone] Encounter Details Date Type Department Care Team (Latest Contact Info) Description 01/15/2024 10:00 AM EDT - 01/15/2024 11:59 PM EDT Hospital Encounter Non-[place] [address] Discharge Disposition: Home Social History Tobacco Use [...] st Contact Info) Description 07/13/2024 10:00 AM [facility] Hospital Encounter Non-[place]vasive [place] [address] Arrived documented as of this encounter Procedures [...] on filedocumented in this encounter Care Teams Checker Relationship Specialty Start Date End Date Vicenta Ndiaye APRN [address] [place] [address] PCP - General Family Medicine 03/11/21 documented as of this encounter
--- OUTSIDE RECORDS SUMMARY | 2024-06-09 14:14 | XMS_ITS | Encounter Summary ---
Author [place] [address] Care Team Providers Care Medical Historian Name Role Phone Vicenta Ndiaye APRN Primary Care Provider [phone] Reason for Visit * Auth/Cert Specialty Diagnoses / Procedures Referred By Contac t Referred To Contact Diagnoses NSTEMI (non-ST elevated myocardial infarction) n-stemi Procedures EMERGENCY IPI Alie Gil MD [facility] [place] [address] [facility] Referral ID Status Reason Start Date Expiration Date Visits Re quested Visits Authorized [id number] 1 1 Encounter Details Date Type Department Care Team (Late st Contact Info) Description 02/07/2023 10:00 AM EDT - 02/07/2023 11:00 AM EDT [facility] [place] [address] Laureano Lyons MD [facility] [place] [address] CARDIAC CATHETERIZATION Social History Tobacco Use Types [...] Gil MD - 02/07/2023 5:00 PM EDT [facility] [place] Summary Patient Name: Elena Thacker [...] resolved problems to display. Operations/Major Procedures: 02/07/23 [facility] Hemodynamics Left Heart Pressures Resting: Syst Diast [...] cardiac disease who presents in transfer from [facility] with NSTEMI and asymptomatic sinus bradycardia. Elena reports she developed substernal chest pressure upon ambulating to the kitchen this morning;10/10, radiating to her neck and associated with diaphoresis, no n/v, lightheadedness or dizziness.She plays [employer] ball several times a week with her where her average HR is 114 and can notrecall any episodes of chest pressure. She presented to EMS after the pain became unrelenting this AM, no alleviating factors attempted. On arrival to [facility]: VSS 151/57, HR 40- 55, SpO2 [...] Heparin bolus + gtt On arrival to [facility], she denies any ongoing chest pain. In [...] family hx of heart disease with prior PA in her father and idiopathic hypertrophic subaortic [...] presented to on 02/06/2023 in transfer from [facility] with concern for NSTEMI and asymptomatic [...] ALIE GIL Your Primary Care Provider: Vicenta Ndiaye APRN [phone] For questions regarding this document or issues relating to this hospitalization on the Medical Service, please contact your inpatient physician through the [facility] Replanting Machine Crew . Issues afterhours and on weekends will be handled by the providers on-call. General Instructions None Future Appointments and Orders Future Orders Complete By Expires Ziopatch 48 Hrs-15 Days [[id number] CPT(R)] 02/07/2023 08/09/2023 Process Instructions: Scheduling Instructions: Questions: Does the patient have a pacemaker? If yes provide HI/LO settings: Apply for 7 or 14 days?: 14 Where will study be performed?: [facility] Clinics Referral to Cardiac Electrophysiology [REF11 Custom] As directed Process Instructions: If no progress note charted, please enter Clinical details in comments. Scheduling Instructions: Questions: My question or request is: Bradycardia; Mobitz type I, f/u Zio Patch results Provider Contact Information: Rochel[place] [address] Discharge References/Attachments: Discharge References/Attachments Cardiac Catheterization: Left (Namibian) For questions regarding this document or issues relating to this hospitalization on the Medical Service, please contact your inpatient physician through the [facility] Replant[employer] . Issues afterhours and on weekends will [...] Your Primary Care Provider: Vicenta Ndiaye, ASIM [phone] For questions regarding this document or issues relating to this hospitalization on the Medical Service, please contact your inpatient physician through the [facility] Re[employer] . Issues afterhours and on weekends will be handled by the providers on-call. * Attachments The following attachments cannot be sent through Care Everywhere. * Cardiac Catheterization: Left (Namibian) documented in this encounter Medications at Time [...] Medicine Progress Note Patient info: Elena Alcala EconomyGustavo 77 y.o. : 1945 Date of Admission: 02/06/2023 ( Hospital Day 1 day ) Responsible Attending: Alie Gil MD PCP: Vicenta Ndiaye APRN ([phone]) No chief complaint on file. ID: Elena Thacker is a 77 y.o. female with past medical history significant for pAfib s/p DCCV in 2020 currently on Xarelto, Sinus and AV node conduction disease, HTN, HLD, hypothyroidism and extensive family history of cardiac disease who presented to on 02/06/2023 in transfer from [facility] with concern for NSTEMI and asymptomatic [...] Gas): No results found for: PHART, PO2ART, SDI7BBP, IRW7NKO VBG (Venous Blood Gas): No results for input(s): PHVEN, CYM0COP, PO2VEN, XNE0BMN, BEVEN, OTS5ZVU in the last 72 hours. 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 Cardiology H&P Patient info: Name: Elena Thacker : 1945 PCP: Vicenta Ndiaye APRN PCP phone number: [phone] Date of Admission: 02/06/2023 ( Hospital Day [...] cardiac disease who presents in transfer from [facility] with NSTEMI and asymptomatic sinus bradycardia. [...] no alleviating factors attempted. On arrival to [facility]: VSS 151/57, HR 40- 55, SpO2 [...] Heparin bolus + gtt On arrival to [facility], she denies any ongoing chest pain. In [...] family hx of heart disease with prior PA in her father and idiopathic hypertrophic subaortic [...] 2.25) performed by Janett Vidal MD at [facility] MAIN OR Family History No family history [...] in the last 7068 hours. Invalid input(s): IECYRGXCHRN8G No results for input(s): POCGLU in the last 168 hours. Heme No results for input(s): LDH, HAPTOGLOBIN, URICACID in the last 168 hours. ABG (Arterial Blood Gas) No results found for: PHART, PO2ART, GCC0QOQ, ZIB7ZOE Microbiology: Microbiology Results (Last 30 days) No [...] cardiac disease who presents in transfer from [facility] with NSTEMI and asymptomatic AV block. 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 EKG prior to transfer shows NSR with mobitz type 2 block without acute ischemicchanges. She reports no chest pain since transfer to [facility]. She has been loaded with Aspirin 325 [...] in the chart Anna Marie Tarango MD Prosthetic Dentist [id number] documented in this encounter Plan of Treatment Upcoming Encounters Date Type Department Care Team (Late st Contact Info) Description 07/13/2024 10:00 AM [facility] Hospital Encounter [place] [address] Arrived Scheduled Referrals Name Type [...] from the original result were not included. [facility] ? 'Zio Patch' Ambulatory Cardiac Event [...] were present. Isolated VEs were occasional (1.1%, [id number]), VE Couplets were rare (<1.0%, 55), and [...] D-Dimer 320 0 - 500 FEU ng/ml [facility] Comment: The D-Dimer assay is [...] MD HEMATOLOGY ORDERABLE S Performing Organization Address City/State/[facility] Co de Phone Number [facility] [place] [address] * CARDIAC CATHETERIZATION (02/07/2023 10:00 AM EDT) Anatomical Region Laterality Modality Other Narrative 02/07/2023 10:07 AM EDT ?[facility] ? Cardiac Catheterization/Intervention Report ? Patient Name: EconomyElena Chen ? Procedure Date: 02/07/2023 ? A #: [id number] ? Primary Physician: Kelvin Hunt ? Case #: [id number] ? File Name: [id number] ? Catheterization Order Number: [id number] ? [facility] Final Report [place], [place] ? Patient Name: ? Elena R. Economy-Brassard ?ID#: ?[id number] ? : ?1945 ? Procedure Date: ? [...] procedure was Elective. The indication for ?the wheelabrator operator visit is ACS greater than 24 hrs. [...] 08:12 AMBP: 138/73 mmHg ? Patient Location: [place] [id number] : 1945 ? Height: 160 cm ? Account: [id number] Age: 77 yrs ? Weight: 80 kg Gender: Female ?BSA: 1.8 m2 Ordering Physician: ALIE GIL Referring Physician: CHANEL VARGAS Performed By: Teri Pollack RDCS Reason For Study: NSTEMI Exam Location: [facility]. Interpretation Summary Left ventricular systolic function is normal. The left ventricular ejection fraction is 60% by Smith's biplane. There are no segmental wall motion abnormalities. The left atrium is mildly dilated. There is mild to moderate mitral regurgitation. Other details as noted below. Procedure Complete-[id number]. Satisfactory quality. Left Ventricle There is no [...] Date: 308:12 AMBP: 138/73 mmHg Patient Location: [id number] : 1945 Height: 160 cm Account: [id number] Age: 77 yrs Weight: 80 kg Gender: Female BSA: 1.8 m2 Ordering Physician: ALIE GIL Referring Physician: CHANEL VARGAS Performed By: Teri Pollack RDCS Reason For Study: NSTEMI Exam Location: [facility]. Interpretation Summary Left ventricular systolic function is normal. The left ventricularejection fraction is 60% by Smith's biplane. There are no segmental wall motion abnormalities. The left atrium is mildly dilated. There is mild to moderate mitral regurgitation. Other details as noted below. Procedure Complete-60910. Satisfactory quality. Left Ventricle There is no [...] EKG 12 Lead (02/07/2023 7:44 AM EDT) Pathologist [facility] Ventricular rate 49 BPM MUSE SYSTEM Atrial Rate 56 BPM MUSE SYSTEM QRS Duration 84 ms MUSE SYSTEM Q-T Interval 452 ms MUSE SYSTEM QTC Calculated (Bezet) 408 ms MUSE SYSTEM Calculated P [place] 32 degrees MUSE SYSTEM Calculated R [place] -4 degrees MUSE SYSTEM Calculated T [place] -19 degrees MUSE SYSTEM INTERPRETATION Sinus bradycardia [...] has shortened Confirmed by MD Dewey, Kami ([id number]) on 02/07/2023 4:10:26 PM MUSE SYSTEM 02/07/2023 7:44 AM EDT 02/07/2023 4:10 PM EDT Alie Gil MD ECG ORDERABLES MUSE SYSTEM * (ABNORMAL) Differential, Automated (02/07/2023 6:27 AM EDT) Pathologist [facility] Neutrophil % 38.9 % [facility] Neutrophil Absolute 1.53(L) 1.70 - 6.10 x10(3)/mc L [facility] Lymph % 49.0 % [facility] Lymphocytes Abs 1.9 0.9 - 3.2 x10(3)/mc L [facility] Monocyte % 9.2 % [facility] ITAL [facility] Monocyte Abs 0.4 0.3 - 0.9 x10(3)/mc L [facility] Eos % 1.8 % [facility] Eosinophils Abs 0.1 0.0 - 0.4 x10(3)/mc L [facility] Basophil % 0.8 % [facility] ITAL [facility] Baso Absolute 0.0 0.0 - 0.1 x10(3)/mc L [facility] Immature Gran % 0.30 % [facility] Comment: Immature granulocytes(IG's)percentage and absolute count will include metamyelocytes, myelocytes, and promyelocytes. Blood smears from CBCs yielding IG's will be scanned manually for concordance. If this scan disagrees with the automated IG or if promyelocytes are noted, a manual differential will be performed. Immature Gran Absolute 0.01 0.00 - 0.04 x10(3)/mc L [facility] Blood 02/07/2023 6:27 AM EDT 02/07/2023 6:46 AM EDT Narrative Resulting Agency Comment Spec In Lab Gabriela Hemphill MD HEMATOLOGY ORDERABLE S [facility] [place] [address] * (ABNORMAL) Hemogram (02/07/2023 6:27 AM EDT) White Blood Cell 3.9(L) 4.0 - 9.5 x10(3)/mc L [facility] Red Blood Cell 4.85 4.00 - 5.21 x10(6)/mc L [facility] Hemoglobin 14.8 11.7 - 15.5 g/dL [facility] Hematocrit 44.1 35.7 - 45.8 % [facility] Mean Cell Volume 90.9 82.6 - 94.[address] [facility] Mean Cell Hemoglobin 30.5 27.1 - 32.[address] [facility] Mean Cell Hemoglobin Concentration 33.6 31.7 - 35.0 g/dL [facility] Platelet 158 145 - 357 x10(3)/mc L [facility] RDW Standard Deviation 41.5 37.0 - 46.[address] [facility] RDW coefficient of variation 12.5 11.5 - 14.1 % [facility] Mean Platelet Volume 10.4 7.6 - 12.[address] [facility] NRBC% auto 0.0 % [facility] IT[facility] NRBC Absolute 0.000 0.000 - 0.000 x10(3)/mc L [facility] Blood 02/07/2023 6:27 AM EDT 02/07/2023 6:46 AM EDT Narrative Resulting Agency Comment Spec In Lab Gabriela Hemphill MD HEMATOLOGY ORDERABLE S Performing Organization Address City/[facility] Co de Phone Number [facility] [place] [address] * Heparin (unfractionated) Level (02/07/2023 6:27 AM EDT) UF Heparin 0.49 IU/mL [facility] Comment: Heparin (anti-Xa) levels should [...] MD HEMATOLOGY ORDERABLE S Performing Organization Address [facility] Co de Phone Number [facility] [place] [address] * Magnesium (02/07/2023 6:27 AM EDT) Magnesium 0.91 0.69 - 1.07 mmol/L [facility] Blood 02/07/2023 6:27 AM EDT 02/07/2023 6:46 AM EDT Narrative Resulting Agency Comment Spec In Lab Alie Gil MD CHEMISTRY ORDERABLES Performing Organization Address City/[facility] Co de Phone Number [facility] [place] [address] * (ABNORMAL) Basic Metabolic Panel (non-fasting) (02/07/2023 6:27 AM EDT) Glucose 105 65 - 199 mg/dL [facility] Comment:Diabetes: >=200 mg/d L plus symptoms Blood Urea Nitrogen 14 8 - 18 mg/dL [facility] Creatinine 0.63(L) 0.70 - 1.20 mg/dL [facility] Sodium 135 135 - 145 mmol/L [facility] Potassium 4.0 3.5 - 5.0 mmol/L [facility] Comment: Please note: ??Patients with WBC >100,000 may have falsely elevated Potassium levels. ??For accurate Potassium quantification in these patients send serum separator tube (gold top) for subsequent determinations. ??Contact the Clinical Chemistry Laboratory if there are any questions. Chloride 101 98 - 107 mmol/L [facility] Carbon Dioxide 22 22 - 31 mmol/L [facility] Anion Gap 12 5 - 15 mmol/L [facility] Calcium 9.3 8.5 - 10.5 mg/dL [facility] Est Glomerular Filtration Rate 91 >=60 mL/min/1. 73 m?? [facility] Comment: This patient's estimated GFR [...] Gil MD CHEMISTRY ORDERABLES Performing Organization Address [facility]/ZIP Co de Phone Number [facility] [place] [address] * Heparin (unfractionated) Level (02/06/2023 11:50 PM EDT) Pathologist [facility] UF Heparin 0.78 IU/mL [facility] Comment: Heparin (anti-Xa) levels should [...] Lab Alie Gil MD HEMATOLOGY ORDERABLE S [facility] [place] [address] * (ABNORMAL) Troponin (02/06/2023 7:25 PM EDT) [facility] Troponin-T, High Sensitivity 78(H) <=14 ng/L [facility] Comment: This patient's troponin T [...] troponin value can be found in the [facility] Laboratory Test Catalog Troponin - [facility] Laboratory Test Catalog Reference: [place] Definition of Myocardial Infarction. Journal of the [place] [employer] 2018;72:2988-3763 Blood 02/06/2023 7:25 PM EDT 02/06/2023 7:30 PM EDT Narrative Resulting Agency Comment Spec In Lab Alie Gil MD CHEMISTRY ORDERABLES [facility] [place] [address] * Differential, Automated (02/06/2023 5:10 PM EDT) Neutrophil % 44.2 % [facility] Neutrophil Absolute 2.29 1.70 - 6.10 x10(3)/[facility] LABORATORY Lymph % 47.8 % [facility] Lymphocytes Abs 2.5 0.9 - 3.2 x10(3)/[facility] LABORATORY Monocyte % 6.2 % [facility] Monocyte Abs 0.3 0.3 - 0.9 x10(3)/[facility] LABORATORY Eos % 1.0 % [facility] Eosinophils Abs 0.0 0.0 - 0.4 x10(3)/[facility] LABORATORY Basophil % 0.6 % [facility] Baso Absolute 0.0 0.0 - 0.1 x10(3)/[facility] LABORATORY Immature Gran % 0.20 % [facility] Comment: Immature granulocytes(IG's)percentage and absolute count will include metamyelocytes, myelocytes, and promyelocytes. Blood smears from CBCs yielding IG's will be scanned manually for concordance. If this scan disagrees with the automated IG or if promyelocytes are noted, a manual differential will be performed. Immature Gran Absolute 0.01 0.00 - 0.04 x10(3)/[facility] LABORATORY Blood 02/06/2023 5:10 PM EDT 02/06/2023 5:23 PM EDT Narrative Resulting Agency Comment Spec In Lab Gabriela Hemphill MD HEMATOLOGY ORDERABLE S Performing Organization Address City/[facility]/ZIP Co de Phone Number [facility] [place] [address] * Hemogram (02/06/2023 5:10 PM EDT) White Blood Cell 5.2 4.0 - 9.5 x10(3)/[facility] LABORATORY Red Blood Cell 4.85 4.00 - 5.21 x10(6)/[facility] LABORATORY Hemoglobin 14.7 11.7 - 15.5 g/dL [facility] Hematocrit 43.1 35.7 - 45.8 % [facility] Mean Cell Volume 88.9 82.6 - 94.[address] [facility] Mean Cell Hemoglobin 30.3 27.1 - 32.[address] [facility] Mean Cell Hemoglobin Concentration 34.1 31.7 - 35.0 g/dL [facility] Platelet 192 145 - 357 x10(3)/[facility] LABORATORY RDW Standard Deviation 41.1 37.0 - 46.[address] [facility] RDW coefficient of variation 12.6 11.5 - 14.1 % [facility] Mean Platelet Volume 10.3 7.6 - 12.[address] [facility] NRBC% auto 0.0 % [facility] ITAL LABORAT[facility] NRBC Absolute 0.000 0.000 - 0.000 x10(3)/[facility] LAB[facility]ATORY Blood 02/06/2023 5:10 PM EDT 02/06/2023 5:23 PM EDT Narrative Resulting Agency Comment Spec In Lab Gabriela Hemphill MD HEMATOLOGY ORDERABLE S Performing Organization Address City/[facility]/ZIP Co de Phone Number [facility] [place] [address] * (ABNORMAL) Heparin (unfractionated) Level (02/06/2023 5:10 PM EDT) UF Heparin 1.66(Crit ical) IU/mL [facility] Comment: Critical Result called by ?? ALDAIR CRITICAL Results read back by: ? Gwendolyn Bonds LouieAdamLizandro at 2023-02-06 17:57:56 Heparin (anti-Xa) levels should [...] MD HEMATOLOGY ORDERABLE S Performing Organization Address City/[facility]/ZIP Co de Phone Number [facility] [place] [address] * (ABNORMAL) pro-Brain Natriuretic Peptide (02/06/2023 5:10 PM EDT) [facility] NT-proBNP 529(H) <=449 pg/mL [facility] Blood 02/06/2023 5:10 PM EDT 02/06/2023 5:23 PM EDT Narrative Resulting Agency Comment Spec In Lab Alie Gil MD CHEMISTRY ORDERABLES Performing Organization Address [facility] Co de Phone Number [facility] [place] [address] * (ABNORMAL) Troponin (02/06/2023 5:10 PM EDT) [facility] Troponin-T, High Sensitivity 89(H) <=14 ng/L [facility] Comment: This patient's troponin T [...] troponin value can be found in the [facility] Laboratory Test Catalog Troponin - [facility] Laboratory Test Catalog Reference: [place] Definition of Myocardial Infarction. Journal of the [place]iology 2018;72:8358-4843 Blood 02/06/2023 5:10 PM EDT 02/06/2023 5:23 PM EDT Narrative Resulting Agency Comment Spec In Lab Alie Gil MD CHEMISTRY ORDERABLES [facility] [place] [address] * Triglyceride (02/06/2023 5:10 PM EDT) Triglyceride 62 mg/dL [facility] Comment: Average Risk/Lower Risk: <150 mg/dL Borderline High Risk: 150-199 mg/dL High Risk: 200-499 mg/dL Very High Risk: >cg=756 mg/dL Blood 02/06/2023 5:10 PM EDT 02/06/2023 5:23 PM EDT Narrative Resulting Agency Comment Spec In Lab Alie Gil MD CHEMISTRY ORDERABLES [facility] [place] [address] * HDL/Cholesterol Profile (02/06/2023 5:10 PM EDT) Cholesterol, Total 166 mg/dL [facility] Comment: Lower Risk: <200 mg/dL Average Risk: 200-239 mg/dL Higher Risk: >xe=201 mg/dL HDL Cholesterol 61 mg/dL [facility] Comment: Males: ?? Higher Risk: <40 mg/dL Females: ?? Higher Risk: <50 mg/dL Cholesterol/HDL Ratio 2.[address] [facility] Chol/HDL Interpretation See Note [facility] Comment: Lipid management should be guided by a patient? s ASCVD risk, goals and preferences. ACC/AHA Guidelines recommend high intensity statin if clinical ASCVD or LDL greater than or equal to 190 mg/dL. http://[employer]com/OJW-CPW-Snkwwsdfe Measure LDL if Total Cholesterol minus HDL Cholesterol is greater than 220 mg/dL. Adults aged 40-75 with LDL 70-189 mg/dL should have their 10 year ASCVD risk estimated with the ACC/AHA ASCVD risk commercial estimator http://tools.acc.org/QHWRQ-Hxla-Jmgifqwoj/ Statin should be discussed if risk greater [...] In Lab Alie Gil MD CHEMISTRY ORDERABLES [facility] [place] [address] * LDL Cholesterol, Direct (02/06/2023 5:10 PM EDT) LDL Cholesterol, Direct 95 mg/dL [facility] Comment: Lowest Risk: <100 mg/dL Lower Risk: 100-129 mg/dL Borderline High Risk: 130-159 mg/dL High Risk: 160-189 mg/dL Very High Risk: >zb=762 mg/dL Blood 02/06/2023 5:10 PM EDT 02/06/2023 5:23 PM EDT Narrative Resulting Agency Comment Spec In Lab Alie Gil MD CHEMISTRY ORDERABLES [facility] [place] [address] * Hemoglobin A1c (02/06/2023 5:10 PM EDT) Hemoglobin A1c 5.6 4.3 - 5.6 % [facility] Comment: Reference Range: 4.3 - [...] [id number] Estimated Average Glucose See note mg/dL [facility] Comment: Estimated Average Glucose not [...] on the ADA website. Kristian TERESA, Sam Virgen, Jenni Alcala, et al. ??Translating the A1C assay into estimated average glucose values. ??Diabetes Care 2008:31(8):5224-6175. Blood 02/06/2023 5:10 PM EDT 02/06/2023 5:23 PM EDT Narrative Resulting Agency Comment Spec In Lab Alie Gil MD CHEMISTRY ORDERABLES Performing Organization Address [facility] Co de Phone Number [facility] [place] [address] * TSH [place] (02/06/2023 5:10 PM EDT) Thyroid Stimulating Hormone 1.95 0.27 - 4.20 mcIU/mL [facility] Comment: Reference Interval (mcIU/mL): Females: ??First Trimester: 0.23-3.88 ??Second Trimester: 0.22-3.90 ??Third Trimester: 0.44-4.66 Blood 02/06/2023 5:10 PM EDT 02/06/2023 5:23 PM EDT Narrative Resulting Agency Comment Spec In Lab Alie Gil MD CHEMISTRY ORDERABLES Performing Organization Address [facility] Co de Phone Number [facility] [place] [address] * Lipid Panel (Reflex Direct LDL) (02/06/2023 5:10 PM EDT) Cholesterol, Total 166 mg/dL [facility] Comment: Lower Risk: <200 mg/dL Average Risk: 200-239 mg/dL Higher Risk: >qo=466 mg/dL Triglyceride 62 mg/dL [facility] Comment: Average Risk/Lower Risk: <150 mg/dL Borderline High Risk: 150-199 mg/dL High Risk: 200-499 mg/dL Very High Risk: >eu=129 mg/dL HDL Cholesterol 61 mg/dL [facility] Comment: Males: ?? Higher Risk: <40 mg/dL Females: ?? Higher Risk: <50 mg/dL LDL Cholesterol 93 mg/dL [facility] Comment: Lowest Risk: <100 mg/dL Lower Risk: 100-129 mg/dL Borderline High Risk: 130-159 mg/dL High Risk: 160-189 mg/dL Very High Risk: >fb=788 mg/dL Cholesterol/HDL Ratio 2.[address] [facility] Lipid Interpretation See Note [facility] Comment: Lipid management should be guided by a patient? s ASCVD risk, goals and preferences. ACC/AHA Guidelines recommend high intensity statin if clinical ASCVD or LDL greater than or equal to 190 mg/dL. [email or web address]/OZK-TJK-Mmriwjhri Adults aged 40-75 with LDL 70-189 mg/dL should have their 10 year ASCVD risk estimated with the ACC/AHA ASCVD risk commercial estimator http://tools.acc.org/LAHFI-Plgl-Jggmthizy/ Statin should be discussed if risk greater [...] In Lab Alie Gil MD CHEMISTRY ORDERABLES [facility] [place] [address] * (ABNORMAL) APTT (02/06/2023 5:10 PM EDT) Partial Thromboplastin Time >160(Crit ical) 25 - [address] [facility] Comment: Critical Result called by [...] MD HEMATOLOGY ORDERABLE S Performing Organization Address [facility] Co de Phone Number [facility] [place] [address] * (ABNORMAL) Prothrombin Time (02/06/2023 5:10 PM EDT) Prothrombin Time 17.0(H) 9.4 - 12.[address] [facility] International Normalization Ratio 1.[address] [facility] Comment: An INR <2.0 indicates [...] MD HEMATOLOGY ORDERABLE S Performing Organization Address [facility] Co de Phone Number [facility] [place] [address] * Calcium (02/06/2023 5:10 PM EDT) Calcium 9.6 8.5 - 10.5 mg/dL [facility] Blood 02/06/2023 5:10 PM EDT 02/06/2023 5:23 PM EDT Narrative Resulting Agency Comment Spec In Lab Alie Gil MD CHEMISTRY ORDERABLES Performing Organization Address [facility] Co de Phone Number [facility] [place] [address] * Magnesium (02/06/2023 5:10 PM EDT) Magnesium 0.87 0.69 - 1.07 mmol/L [facility] Blood 02/06/2023 5:10 PM EDT 02/06/2023 5:23 PM EDT Narrative Resulting Agency Comment Spec In Lab Alie Gil MD CHEMISTRY ORDERABLES [facility] [place] [address] * (ABNORMAL) Basic Metabolic Panel (non-fasting) (02/06/2023 5:10 PM EDT) Glucose 100 65 - 199 mg/dL [facility] Comment:Diabetes: >=200 mg/d L plus symptoms Blood Urea Nitrogen 15 8 - 18 mg/dL [facility] Creatinine 0.68(L) 0.70 - 1.20 mg/dL [facility] Sodium 136 135 - 145 mmol/L [facility] Potassium 4.2 3.5 - 5.0 mmol/L [facility] Comment: Please note: ??Patients with WBC >100,000 may have falsely elevated Potassium levels. ??For accurate Potassium quantification in these patients send serum separator tube (gold top) for subsequent determinations. ??Contact the Clinical Chemistry Laboratory if there are any questions. Chloride 101 98 - 107 mmol/L [facility] Carbon Dioxide 24 22 - 31 mmol/L [facility] Anion Gap 11 5 - 15 mmol/L [facility] Calcium 9.6 8.5 - 10.5 mg/dL [facility] Est Glomerular Filtration Rate 90 >=60 mL/min/1. 73 m?? 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) Abnormal ECG When compared with ECG of 22-JUL-2021 10:22, [place] interval has increased T wave inversion less evident in Inferior leads QT has lengthened Confirmed by MD Dewey, Kami ([id number]) on 02/07/2023 4:09:13 PM MUSE SYSTEM 02/06/2023 [...] (Given - Provid er: Gwendolyn Alba RN)0920 ([facility] Hold - Provider: Admin Adt - Reason: Transfer to a Procedural area)1053 ([facility] Unhold - Provider: Admin Adt) clopidogreL (Plavix) tablet 600 mg (COMPLETED)(Linked Group 1) 600 mg, Oral, ONCE, 1 dose, On Tue02/06/23 at 1800, Routine 1801 (Given - Provider: Gwendolyn Alba RN) clopidogreL (Plavix) tablet 75 mg (CANCELED)(Linked Group 1) 75 mg, Oral, DAILY, First dose on Tue02/07/23 at 0900, Until Discontinued, Routine 0857 (Given - Provid er: Gwendolyn Alba RN)0920 ([facility] Hold - Provider: Admin Adt - Reason: Transfer to a Procedural area)1053 ([facility] Unhold - Provider: Admin Adt) levothyroxine (Synthroid) tablet 68.5 mcg 68.5 mcg, Oral, EVERY MORNING, First dose (after last modification) on Tue02/07/23 at 0600, Until Discontinued, Routine 0654 (Given - Provid er: Sean Lindo RN)0920 ([facility] Hold - Provider: Admin Adt - Reason: Transfer to a Procedural area)1053 ([facility] Unhold - Provider: Admin Adt) rosuvastatin (Crestor) tablet 40 mg 40 mg, Oral, EVERY EVENING, First dose on Tue02/06/23 at 1700, Until Discontinued, Routine 1657 (Given - Provider: Gwendolyn Alba RN) 0920 ([facility] Hold - Provider: Admin Adt - Reason: Transfer to a Procedural area)1053 ([facility] Unhold - Provider: Admin Adt)1857 (Given - [...] - Reason: Transfer to a Procedural area)1053 ([facility] Unhold - Provider: Admin Adt) Continuous Medication [...] for discomfort with PIV insertion, Routine 919 (MAR Hold - Pro vider: Admin Adt - [...] Intravenous, EVERY 1 MIN PRN, Starting on 02/06/23 at 1550, Until Tue02/07/23 at 2257, flush, Flush pertains to all indwelling lines. Flush per protocol found in the job aid using the link provided on this medication record., Routine 09 (OCT Hold - Pro vider: Admin Adt - Reason: Transfer to a Procedural area)1053 ([facility] Unhold - Provider: Admin Adt) sodium chloride [...] - Reason: Transfer to a Procedural area)1053 ([facility] Unhold - Provider: Admin Adt) verapamiL (Isoptin) (2.5 mg/mL) injection (CANCELED) PRN, Starting on Tue02/07/23 at 0931, Until Tue02/07/23 at 1003, Administer over 2 Minutes, Intra-Operative (Intra-Procedure) 0931 (Given - Provid er: MARGARITA [place]) Linked Groups Order Group 1: clopidogreL (Plavix) tablet 600 mg (COMPLETED)Jump to med 600 mg, Oral, ONCE, 1 dose, On 02/06/23 at 1800, Routine Followed by clopidogreL (Plavix) [...] Routine documented in this encounter Care Teams Medical Historian Relationship Specialty Start Date End Date Vicenta Ndiaye APRN [address] [place] [address] PCP - General Family Medicine 03/11/21 documented as of this encounter
--- OUTSIDE RECORDS SUMMARY | 2024-06-09 14:14 | XMS_ITS | Encounter Summary ---
Author Organization [facility] [place] [address] Care Team Providers Care Appointment Specialist Name Role Phone Vicenta Ndiaye ASIM Primary Care Provider [phone] Encounter Details Date Type Department Care Team (Late st Contact Info) Description 02/06/2023 10:00 AM EDT Ancillary Procedure Radiology Library at [facility] [place] [address] Kami Palomo MD [facility] [place] [address] Social History Tobacco Use Types Packs/Day Years [...] AM EST Hospital Encounter Non-Invasive [place] [address] Arrived documented as of this encounter Procedures Procedure Name Priority Date/Time Associated Diagnosis Comments FILM LIBRARY STORAGE ONLY DX CHEST Routine 02/06/2023 9:59 AM EDT documented in this encounter Results * Film Library- Storage Only DX Chest (02/06/2023 9:59 AM EDT) Narrative [facility] - 02/06/2023 9:59 AM EDT This exam is auto-finalizing. It's purpose is for storage only. Kami Palomo MD IMG FILM LIBRARY ORD ERABLES [place] documented in this encounter Visit Diagnoses Not on filedocumented in this encounter Care Teams Appointment Specialist Relationship Specialty Start Date End Date Vicenta Ndiaye APRN [address] [place] [address] PCP - General Family Medicine 03/11/21 documented as of this encounter
--- OUTSIDE RECORDS SUMMARY | 2024-06-09 14:14 | XMS_ITS | Encounter Summary ---
Author Organization [facility]ly [facility] [place] [address] Care Team Providers Care Senior Applications Engineer Name Role Phone Senthil Vicenta DAILEY Primary Care Provider [phone] Reason for Referral * Consultation (Routine) - Closed Specialty Diagnoses / Procedures Referred By Contact Referred To Contact Electrophysiology / Cardiology Diagnoses Bradycardia Mobitz (type) I (Wenckebach's) atrioventricular block Bradycardia; Mobitz type I, f/u Zio Patch results Rochelle Dooley MD [facility] [address] [address] [facility] [place] Cardiology [address] [place] [phone] Referral ID Status Reason Start Date Expiration Date V isits Requested Visits Authorized [id number] Closed Consult, Test & Treat 02/07/2023 02/07/2024 1 1 * Diagnostic Test (Routine) - Closed Specialty Diagnoses / Procedures Referred By Contac t Referred To Contact Cardiology Diagnoses Bradycardia Procedures Ziopatch 48 Hrs-15 Days Rochelle Dooley MD [facility] [address] [place] [address] [facility] [place] [address] Referral ID Status Reason Start Date Expiration Date V isits Requested Visits Authorized [id number] Closed Specialty Service Requested 02/07/2023 02/07/2024 1 1 Reason for Visit * Auth/Cert Specialty Diagnoses / Procedures Referred By Contac t Referred To Contact Diagnoses NSTEMI (non-ST elevated myocardial infarction) n-stemi Procedures EMERGENCY IPI Alie Gil MD [facility] [place] [address] [facility] Referral ID Status Reason Start Date Expiration Date Visits Re quested Visits Authorized [id number] 1 1 Encounter Details Date Type Department Care Team (Latest Contact Info) Description 02/06/2023 3:01 PM EDT - 02/07/2023 8:57 PM EDT Hospital Encounter Heart and Vascular Unit Level 4 [place] [id number] Alie Gil MD [facility] [place] [address] Non-ST elevation myocardial infarction (NSTEMI); Bradycardia; Mobitz [...] Gil MD - 02/07/2023 5:00 PM EDT [facility] Inpatient Discharge Summary Patient Name: Elena Thacker [...] resolved problems to display. Operations/Major Procedures: 02/07/23 [facility] Hemodynamics Left Heart Pressures Resting: Syst [...] cardiac disease who presents in transfer from [facility] with NSTEMI and asymptomatic sinus bradycardia. Elena [...] no alleviating factors attempted. On arrival to [facility]: VSS 151/57, HR 40- 55, SpO2 97% [...] Heparin bolus + gtt On arrival to [facility], she denies any ongoing chest pain. In [...] family hx of heart disease with prior ME in her father and idiopathic hypertrophic subaortic [...] presented to on 02/06/2023 in transfer from [facility] with concern for NSTEMI and asymptomatic AV [...] Doctor: ALIE GIL Your Primary Care Provider: Viecnta Ndiaye APRN [phone] For questions regarding this document or issues relating to this hospitalization on the Medical Service, please contact your inpatient physician through the [facility] Screw Machine Adjuster Automatic . Issues afterhours and on weekends will be handled by the providers on-call. General Instructions None Future Appointments and Orders Future Orders Complete By Morales Foster 48 Hrs-15 Days [[id number] CPT(R)] 02/07/2023 08/09/2023 Process Instructions: Scheduling Instructions: Questions: Does the patient have a pacemaker? If yes provide HI/LO settings: Apply for 7 or 14 days?: 14 Where will study be performed?: [facility] Clinics Referral to Cardiac Electrophysiology [REF11 Custom] As directed Process Instructions: If no progress note charted, please enter Clinical details in comments. Scheduling Instructions: Questions: My question or request is: Bradycardia; Mobitz type I, f/u Zio Patch results Provider Contact Information: Rochel[place] [address] Discharge References/Attachments: Discharge References/Attachments Cardiac Catheterization: Left (Syrian) For questions regarding this document or issues relating to this hospitalization on the Medical Service, please contact your inpatient physician through the [facility] Screw Machine Adjuster Automatic . Issues afterhours and on weekends will [...] Your Primary Care Provider: Vicenta Ndiaye, ASIM [phone] For questions regarding this document or issues relating to this hospitalization on the Medical Service, please contact your inpatient physician through the [facility] Screw Machine Adjuster Automatic . Issues afterhours and on weekends will be handled by the providers on-call. * Attachments The following attachments cannot be sent through Care Everywhere. * Cardiac Catheterization: Left (Syrian) documented in this encounter Medications at Time [...] Cardiovascular Medicine Progress Note Patient info: Elena Thacekr 77 y.o. : 1945 Date of Admission: 02/06/2023 ( Hospital Day 1 day ) Responsible Attending: Alie Gil MD PCP: Vicenta Ndiaye APRN ([phone]) No chief complaint on file. ID: Elena Thacker is a 77 y.o. female with past medical history significant for pAfib s/p DCCV in 2020 currently on Xarelto, Sinus and AV node conduction disease, HTN, HLD, hypothyroidism and extensive family history of cardiac disease who presented to on 02/06/2023 in transfer from [facility] with concern for NSTEMI and asymptomatic AV [...] Gas): No results found for: PHART, PO2ART, ZHV9VTO, IHR4XZF VBG (Venous Blood Gas): No results for input(s): PHVEN, RMJ6FIF, PO2VEN, KFI9JXU, BEVEN, RUE0WJJ in the last 72 hours. Vascular No [...] presented to on 02/06/2023 in transfer from [facility] with concern for NSTEMI and asymptomatic AV [...] PAF Alie Gil MD, FACC, FASE Staff Mailmaster floor covering printer assistant documented in this encounter H&P Notes * Alie Gil MD - 02/06/2023 3:52 PM EDT Images from the original note were not included. Cardiology H&P Patient info: Name: Elena Thacker : 1945 PCP: Vicenta Ndiaye APRN PCP phone number: [phone] Date of Admission: 02/06/2023 ( Hospital Day [...] cardiac disease who presents in transfer from [facility] with NSTEMI and asymptomatic sinus bradycardia. Elena [...] no alleviating factors attempted. On arrival to [facility]: VSS 151/57, HR 40- 55, SpO2 97% [...] Heparin bolus + gtt On arrival to [facility], she denies any ongoing chest pain. In regard to her afib, her PCP stopped her crestor and xarelto several months ago after she reported no longer having an afib burden, however inthe last week she resumed her xarelto after she noticed some intermittent palpitations. In the lastfew months her [employer] watch has frequently sent notifcations regarding her HR sustaining <50 bpm.She denies any associated lightheadedness, dizziness or fatigue. She denies orthopnea, PND, or bilateral lower extremity edema. Known family hx of heart disease with prior ME in her father and idiopathic hypertrophic subaortic [...] 2.25) performed by Janett Vidal MD at [facility] MAIN OR Family History No family [...] (porcine) heparin (porcine) infusion 1,000 Units/hr (02/06/23 9112) Objective: Vitals Last value Range last 24 [...] in the last 7068 hours. Invalid input(s): [id number] No results for input(s): POCGLU in the last 168 hours. Heme No results for input(s): LDH, HAPTOGLOBIN, URICACID in the last 168 hours. ABG (Arterial Blood Gas) No results found for: PHART, PO2ART, MDS4ILJ, YBX1KKN Microbiology: Microbiology Results (Last 30 days) No [...] cardiac disease who presents in transfer from [facility] with NSTEMI and asymptomatic AV block. Clinical [...] #Routine Diet: Daily Healthy Menu Choices/Cardiac diet ([facility]-Diet) NPO diet (Give Meds) DVT Prophylaxis: heparin [...] PAF Alie Gil MD, FACC, FASE Staff Mailmaster floor covering printer assistant documented in this encounter Miscellaneous Notes * [...] HTN, HLD, hypothyroidism who was transferred from [facility] on 02/06/23 with NSTEMI and asymptomatic sinus bradycardia. EKG prior to transfer shows NSR with mobitz type 2 block without acute ischemicchanges. She reports no chest pain since transfer to [facility]. She has been loaded with Aspirin 325 [...] in the chart Anna Marie Tarango MD Federal Law Clerk [id number] documented in this encounter Plan of Treatment Upcoming Encounters Date Type Department Care Team (Late st Contact Info) Description 07/13/2024 10:00 AM EST Hospital Encounter Non-[place] [phone] Arrived Scheduled Referrals Name Type Priority Associated [...] from the original result were not included. [facility] ? 'Zio Patch' Ambulatory Cardiac Event [...] were present. Isolated VEs were occasional (1.1%, 23074), VE Couplets were rare (<1.0%, 55), and [...] D-Dimer 320 0 - 500 FEU ng/ml [facility] Comment: The D-Dimer assay is used [...] Lab Alie Gil MD HEMATOLOGY ORDERABLE S [facility] [place] [address] * CARDIAC CATHETERIZATION (02/07/2023 10:00 AM EDT) Anatomical Region Laterality Modality Other Narrative 02/07/2023 10:07 AM EDT ?[facility] ? Cardiac Catheterization/Intervention Report ? Patient Name: [place]fa, Elena R. ? Procedure Date: 02/07/2023 ? A #: [id number] ? Primary Physician: Marilee, Kelvin S ? Case #: [id number] ? File Name: [id number] ? Catheterization Order Number: [id number] ? [facility] ?Senior Manager [facility] ? Final Report [place], [place] ? Patient Name: ? Elena Alcala. Jolie ?ID#: ?[id number] ? : ?1945 ? Procedure Date: ? February 07, 2023 ?Case #: ? [id number] ? Room: ? 1 ? Case Physician: [...] procedure was Elective. The indication for ?the seed laboratory assistant visit is ACS greater than 24 hrs. [...] 1945 ? Height: 160 cm ? Account: [id number] Age: 77 yrs ? Weight: 80 kg Gender: Female ?BSA: 1.8 m2 Ordering Physician: ALIE GIL Referring Physician: CHANEL VARGAS Performed By: Teri Pollack RDCS Reason For Study: NSTEMI Exam Location: [facility]. Interpretation Summary Left ventricular systolic function is normal. The left ventricular ejection fraction is 60% by Smith's biplane. There are no segmental wall motion abnormalities. The left atrium is mildly dilated. There is mild to moderate mitral regurgitation. Other details as noted below. Procedure Complete-[id number]. Satisfactory quality. Left Ventricle There is no [...] Date: 308:12 AMBP: 138/73 mmHg Patient Location: [id number] : 1945 Height: 160 cm Account: [id number] Age: 77 yrs Weight: 80 kg Gender: Female BSA: 1.8 m2 Ordering Physician: ALIE GIL Referring Physician: CHANEL VARGAS Performed By: Teri Pollack RDCS Reason For Study: NSTEMI Exam Location: [facility]. Interpretation Summary Left ventricular systolic function is normal. The left ventricularejection fraction is 60% by Smith's biplane. There are no segmental wall motion abnormalities. The left atrium is mildly dilated. There is mild to moderate mitral regurgitation. Other details as noted below. Procedure Complete-58292. Satisfactory quality. Left Ventricle There is no [...] (Bezet) 408 ms MUSE SYSTEM Calculated P [place] 32 degrees MUSE SYSTEM Calculated R [place] -4 degrees MUSE SYSTEM Calculated T [place] -19 degrees MUSE SYSTEM INTERPRETATION Sinus bradycardia [...] has shortened Confirmed by MD Dewey, Kami ([id number]) on 02/07/2023 4:10:26 PM MUSE SYSTEM 02/07/2023 7:44 AM EDT 02/07/2023 4:10 PM EDT Alie Gil MD ECG ORDERABLES MUSE SYSTEM * (ABNORMAL) Differential, Automated (02/07/2023 6:27 AM EDT) Neutrophil % 38.9 % [facility] Neutrophil Absolute 1.53(L) 1.70 - 6.10 x10(3)/mc L [facility] Lymph % 49.0 % [facility] Lymphocytes Abs 1.9 0.9 - 3.2 x10(3)/mc L [facility] Monocyte % 9.2 % [facility] Monocyte Abs 0.4 0.3 - 0.9 x10(3)/mc L [facility] Eos % 1.8 % [facility] Eosinophils Abs 0.1 0.0 - 0.4 x10(3)/mc L [facility] Basophil % 0.8 % [facility] Baso Absolute 0.0 0.0 - 0.1 x10(3)/mc L [facility] Immature Gran % 0.30 % [facility] Comment: Immature granulocytes(IG's)percentage and absolute count will include metamyelocytes, myelocytes, and promyelocytes. Blood smears from CBCs yielding IG's will be scanned manually for concordance. If this scan disagrees with the automated IG or if promyelocytes are noted, a manual differential will be performed. Immature Gran Absolute 0.01 0.00 - 0.04 x10(3)/mc L [facility] Blood 02/07/2023 6:27 AM EDT 02/07/2023 6:46 AM EDT Narrative Resulting Agency Comment Spec In Lab Gabriela Hemphill MD HEMATOLOGY ORDERABLE S Performing Organization Address City/[facility]/ZIP Co de Phone Number [facility] [place] [address] * (ABNORMAL) Hemogram (02/07/2023 6:27 AM EDT) White Blood Cell 3.9(L) 4.0 - 9.5 x10(3)/mc L [facility] Red Blood Cell 4.85 4.00 - 5.21 x10(6)/mc L [facility] Hemoglobin 14.8 11.7 - 15.5 g/dL [facility] Hematocrit 44.1 35.7 - 45.8 % [facility] Mean Cell Volume 90.9 82.6 - 94.4 fL [facility] Mean Cell Hemoglobin 30.5 27.1 - 32.0 pg [facility] Mean Cell Hemoglobin Concentration 33.6 31.7 - 35.0 g/dL [facility] Platelet 158 145 - 357 x10(3)/mc L [facility] RDW Standard Deviation 41.5 37.0 - 46.0 fL [facility] RDW coefficient of variation 12.5 11.5 - 14.1 % [facility] Mean Platelet Volume 10.4 7.6 - 12.9 fL [facility] NRBC% auto 0.0 % [facility] NRBC Absolute 0.000 0.000 - 0.000 x10(3)/mc L [facility] Blood 02/07/2023 6:27 AM EDT 02/07/2023 6:46 AM EDT Narrative Resulting Agency Comment Spec In Lab Gabriela Hemphill MD HEMATOLOGY ORDERABLE S [facility] [place] [address] * Heparin (unfractionated) Level (02/07/2023 6:27 AM EDT) Pathologist [facility] UF Heparin 0.49 IU/mL [facility] Comment: Heparin (anti-Xa) levels should [...] MD HEMATOLOGY ORDERABLE S Performing Organization Address [facility] de Phone Number [facility] [place] [address] * Magnesium (02/07/2023 6:27 AM EDT) [facility] Magnesium 0.91 0.69 - 1.07 mmol/L [facility] Blood 02/07/2023 6:27 AM EDT 02/07/2023 6:46 AM EDT Narrative Resulting Agency Comment Spec In Lab Alie Gil MD CHEMISTRY ORDERABLES Performing Organization Address [facility] Co de Phone Number [facility] [place] [address] * (ABNORMAL) Basic Metabolic Panel (non-fasting) (02/07/2023 6:27 AM EDT) Pathologist [facility] Glucose 105 65 - 199 mg/dL [facility] Comment:Diabetes: >=200 mg/d L plus symptoms Blood Urea Nitrogen 14 8 - 18 mg/dL [facility] Creatinine 0.63(L) 0.70 - 1.20 mg/dL [facility] Sodium 135 135 - 145 mmol/L [facility] Potassium 4.0 3.5 - 5.0 mmol/L [facility] Comment: Please note: ??Patients with WBC >100,000 may have falsely elevated Potassium levels. ??For accurate Potassium quantification in these patients send serum separator tube (gold top) for subsequent determinations. ??Contact the Clinical Chemistry Laboratory if there are any questions. Chloride 101 98 - 107 mmol/L [facility] Carbon Dioxide 22 22 - 31 mmol/L [facility] Anion Gap 12 5 - 15 mmol/L [facility] Calcium 9.3 8.5 - 10.5 mg/dL [facility] Est Glomerular Filtration Rate 91 >=60 mL/min/1. 73 m?? [facility] Comment: This patient's estimated GFR was [...] In Lab Alie Gil MD CHEMISTRY ORDERABLES [facility] [place] [address] * Heparin (unfractionated) Level (02/06/2023 11:50 PM EDT) UF Heparin 0.78 IU/mL [facility] Comment: Heparin (anti-Xa) [...] Lab Alie Gil MD HEMATOLOGY ORDERABLE S [facility] [place] [address] * (ABNORMAL) Troponin (02/06/2023 7:25 PM EDT) Troponin-T, High Sensitivity 78(H) <=14 ng/L [facility] Comment: This patient's troponin T concentration [...] value can be found in the [facility] Test Catalog Troponin - [facility] Test Catalog Reference: Fourth [place] Definition of Myocardial Infarction. Journal of the [place] College [employer]iology 2018;72:4918-4906 Blood 02/06/2023 7:25 PM EDT 02/06/2023 7:30 PM EDT Narrative Resulting Agency Comment Spec In Lab Alie Gil MD CHEMISTRY ORDERABLES Performing Organization Address City/[facility]/ZIP Co de Phone Number [facility] [place] [address] * Differential, Automated (02/06/2023 5:10 PM EDT) Neutrophil % 44.2 % [facility] Neutrophil Absolute 2.29 1.70 - 6.10 x10(3)/[facility] Lymph % 47.8 % [facility] Lymphocytes Abs 2.5 0.9 - 3.2 x10(3)/[facility] Monocyte % 6.2 % [facility] Monocyte Abs 0.3 0.3 - 0.9 x10(3)/[facility] Eos % 1.0 % [facility] Eosinophils Abs 0.0 0.0 - 0.4 x10(3)/[facility] Basophil % 0.6 % [facility] Baso Absolute 0.0 0.0 - 0.1 x10(3)/[facility] Immature Gran % 0.20 % [facility] Comment: Immature granulocytes(IG's)percentage and absolute count will include metamyelocytes, myelocytes, and promyelocytes. Blood smears from CBCs yielding IG's will be scanned manually for concordance. If this scan disagrees with the automated IG or if promyelocytes are noted, a manual differential will be performed. Immature Gran Absolute 0.01 0.00 - 0.04 x10(3)/[facility] Blood 02/06/2023 5:10 PM EDT 02/06/2023 5:23 PM EDT Narrative Resulting Agency Comment Spec In Lab Gabriela Hemphill MD HEMATOLOGY ORDERABLE S Performing Organization Address City/[facility]/ZIP Co de Phone Number [facility] [place] [address] * Hemogram (02/06/2023 5:10 PM EDT) White Blood Cell 5.2 4.0 - 9.5 x10(3)/[facility] Red Blood Cell 4.85 4.00 - 5.21 x10(6)/[facility] Hemoglobin 14.7 11.7 - 15.5 g/dL [facility] Hematocrit 43.1 35.7 - 45.8 % [facility] Mean Cell Volume 88.9 82.6 - 94.4 fL [facility] Mean Cell Hemoglobin 30.3 27.1 - 32.0 pg [facility] Mean Cell Hemoglobin Concentration 34.1 31.7 - 35.0 g/dL [facility] Platelet 192 145 - 357 x10(3)/[facility] RDW Standard Deviation 41.1 37.0 - 46.0 fL [facility] RDW coefficient of variation 12.6 11.5 - 14.1 % [facility] Mean Platelet Volume 10.3 7.6 - 12.9 fL [facility] NRBC% auto 0.0 % [facility] NRBC Absolute 0.000 0.000 - 0.000 x10(3)/[facility] Blood 02/06/2023 5:10 PM EDT 02/06/2023 5:23 PM EDT Narrative Resulting Agency Comment Spec In Lab Gabriela Hemphill MD HEMATOLOGY ORDERABLE S Performing Organization Address City/State/[facility] Co de Phone Number [facility] [place] [address] * (ABNORMAL) Heparin (unfractionated) Level (02/06/2023 5:10 PM EDT) UF Heparin 1.66(Crit ical) IU/mL [facility] Comment: Critical Result called by ?Jayshree QUINTEROS CRITICAL Results read back by: ? Trung [...] MD HEMATOLOGY ORDERABLE S Performing Organization Address [facility]/ZIP Co de Phone Number [facility] [place] [address] * (ABNORMAL) pro-Brain Natriuretic Peptide (02/06/2023 5:10 PM EDT) NT-proBNP 529(H) <=449 pg/mL [facility] Blood 02/06/2023 5:10 PM EDT 02/06/2023 5:23 PM EDT Narrative Resulting Agency Comment Spec In Lab Alie Gil MD CHEMISTRY ORDERABLES Performing Organization Address [facility] Co de Phone Number [facility] [place] [address] * (ABNORMAL) Troponin (02/06/2023 5:10 PM EDT) Troponin-T, High Sensitivity 89(H) <=14 ng/L [facility] Comment: This patient's troponin T concentration [...] value can be found in the [facility] Test Catalog Troponin - [facility] Test Catalog Reference: Fourth [place] Definition of Myocardial Infarction. Journal of the [place] College [employer] Cardiology 2018;72:7655-1461 Blood 02/06/2023 5:10 PM EDT 02/06/2023 5:23 PM EDT Narrative Resulting Agency Comment Spec In Lab Alie Gil MD CHEMISTRY ORDERABLES Performing Organization Address City/[facility] Co de Phone Number [facility] [place] [address] * Triglyceride (02/06/2023 5:10 PM EDT) Triglyceride 62 mg/dL [facility] Comment: Average Risk/Lower Risk: <150 mg/dL Borderline High Risk: 150-199 mg/dL High Risk: 200-499 mg/dL Very High Risk: >yf=722 mg/dL Blood 02/06/2023 5:10 PM EDT 02/06/2023 5:23 PM EDT Narrative Resulting Agency Comment Spec In Lab Alie Gil MD CHEMISTRY ORDERABLES [facility] [place] [address] * HDL/Cholesterol Profile (02/06/2023 5:10 PM EDT) Cholesterol, Total 166 mg/dL [facility] Comment: Lower Risk: <200 mg/dL Average Risk: 200-239 mg/dL Higher Risk: >bm=245 mg/dL HDL Cholesterol 61 mg/dL [facility] Comment: Males: ?? Higher Risk: <40 mg/dL Females: ?? Higher Risk: <50 mg/dL Cholesterol/HDL Ratio 2.7 ratio [facility] Chol/HDL Interpretation See Note [facility] Comment: Lipid management should be guided by a patient? s ASCVD risk, goals and preferences. ACC/AHA Guidelines recommend high intensity statin if clinical ASCVD or LDL greater than or equal to 190 mg/dL. [email or web address] Measure LDL if Total Cholesterol minus HDL Cholesterol is greater than 220 mg/dL. Adults aged 40-75 with LDL 70-189 mg/dL should have their 10 year ASCVD risk estimated with the ACC/AHA ASCVD risk human resources office assistant http://tools.acc.org/UYMGJ-Hyyu-Lvwitsckb/ Statin should be discussed if risk greater [...] Gil MD CHEMISTRY ORDERABLES Performing Organization Address City/[facility]/ZIP Co de Phone Number [facility] [place] [address] * LDL Cholesterol, Direct (02/06/2023 5:10 PM EDT) LDL Cholesterol, Direct 95 mg/dL [facility] Comment: Lowest Risk: <100 mg/dL Lower Risk: 100-129 mg/dL Borderline High Risk: 130-159 mg/dL High Risk: 160-189 mg/dL Very High Risk: >tl=965 mg/dL Blood 02/06/2023 5:10 PM EDT 02/06/2023 5:23 PM EDT Narrative Resulting Agency Comment Spec In Lab Alie Gil MD CHEMISTRY ORDERABLES [facility] [place] [address] * Hemoglobin A1c (02/06/2023 5:10 PM EDT) Hemoglobin A1c 5.6 4.3 - 5.6 % [facility] Comment: Reference Range: 4.3 - 5.6% [...] Mellitus, Diabetes Care 2013; 36: Suppl. 1, I47-58 Estimated Average Glucose See note mg/dL [facility] Comment: Estimated Average Glucose not appropriate [...] into estimated average glucose values. ??Diabetes Care 2008:31(8):8888-4574. Blood 02/06/2023 5:10 PM EDT 02/06/2023 5:23 PM EDT Narrative Resulting Agency Comment Spec In Lab Alie Gil MD CHEMISTRY ORDERABLES Performing Organization Address City/[facility]/ZIP Co de Phone Number [facility] [place] [address] * TSH [place] (02/06/2023 5:10 PM EDT) Thyroid Stimulating Hormone 1.95 0.27 - 4.20 mcIU/mL [facility] Comment: Reference Interval (mcIU/mL): Females: ??First Trimester: 0.23-3.88 ??Second Trimester: 0.22-3.90 ??Third Trimester: 0.44-4.66 Blood 02/06/2023 5:10 PM EDT 02/06/2023 5:23 PM EDT Narrative Resulting Agency Comment Spec In Lab Alie Gil MD CHEMISTRY ORDERABLES Performing Organization Address [facility] Co de Phone Number [facility] [place] [address] * Lipid Panel (Reflex Direct LDL) (02/06/2023 5:10 PM EDT) Cholesterol, Total 166 mg/dL [facility] Comment: Lower Risk: <200 mg/dL Average Risk: 200-239 mg/dL Higher Risk: >aa=001 mg/dL Triglyceride 62 mg/dL [facility] Comment: Average Risk/Lower Risk: <150 mg/dL Borderline High Risk: 150-199 mg/dL High Risk: 200-499 mg/dL Very High Risk: >gw=058 mg/dL HDL Cholesterol 61 mg/dL [facility] Comment: Males: ?? Higher Risk: <40 mg/dL Females: ?? Higher Risk: <50 mg/dL LDL Cholesterol 93 mg/dL [facility] Comment: Lowest Risk: <100 mg/dL Lower Risk: 100-129 mg/dL Borderline High Risk: 130-159 mg/dL High Risk: 160-189 mg/dL Very High Risk: >za=737 mg/dL Cholesterol/HDL Ratio 2.7 ratio [facility] Lipid Interpretation See Note [facility] Comment: Lipid management should be guided by a patient? s ASCVD risk, goals and preferences. ACC/AHA Guidelines recommend high intensity statin if clinical ASCVD or LDL greater than or equal to 190 mg/dL. http://[employer].com/FDM-VBS-Fghfdpxvt Adults aged 40-75 with LDL 70-189 mg/dL should have their 10 year ASCVD risk estimated with the ACC/AHA ASCVD risk human resources office assistant http://tools.acc.org/DPWJE-Piyv-Clgabgjsp/ Statin should be discussed if risk greater [...] Gil MD CHEMISTRY ORDERABLES Performing Organization Address [facility] Co de Phone Number [facility] [place] [address] * (ABNORMAL) APTT (02/06/2023 5:10 PM EDT) [facility] Signature Partial Thromboplastin Time >160(Crit ical) 25 - 37 sec [facility] Comment: Critical Result called by ?? [...] MD HEMATOLOGY ORDERABLE S Performing Organization Address [facility]/ZIP Co de Phone Number [facility] [place] [address] * (ABNORMAL) Prothrombin Time (02/06/2023 5:10 PM EDT) Prothrombin Time 17.0(H) 9.4 - 12.5 sec [facility] International Normalization Ratio 1.5 [facility] Comment: An INR <2.0 indicates adequate [...] MD HEMATOLOGY ORDERABLE S Performing Organization Address [facility] Co de Phone Number [facility] [place] [address] * Calcium (02/06/2023 5:10 PM EDT) Calcium 9.6 8.5 - 10.5 mg/dL [facility] Blood 02/06/2023 5:10 PM EDT 02/06/2023 5:23 PM EDT Narrative Resulting Agency Comment Spec In Lab Alie Gil MD CHEMISTRY ORDERABLES Performing Organization Address [facility] Co de Phone Number [facility] [place] [address] * Magnesium (02/06/2023 5:10 PM EDT) Magnesium 0.87 0.69 - 1.07 mmol/L [facility] Blood 02/06/2023 5:10 PM EDT 02/06/2023 5:23 PM EDT Narrative Resulting Agency Comment Spec In Lab Alie Gil MD CHEMISTRY ORDERABLES Performing Organization Address [facility] Co de Phone Number [facility] [place] [address] * (ABNORMAL) Basic Metabolic Panel (non-fasting) (02/06/2023 5:10 PM EDT) Glucose 100 65 - 199 mg/dL [facility] Comment:Diabetes: >=200 mg/d L plus symptoms Blood Urea Nitrogen 15 8 - 18 mg/dL [facility] Creatinine 0.68(L) 0.70 - 1.20 mg/dL [facility] Sodium 136 135 - 145 mmol/L [facility] Potassium 4.2 3.5 - 5.0 mmol/L [facility] Comment: Please note: ??Patients with WBC >100,000 may have falsely elevated Potassium levels. ??For accurate Potassium quantification in these patients send serum separator tube (gold top) for subsequent determinations. ??Contact the Clinical Chemistry Laboratory if there are any questions. Chloride 101 98 - 107 mmol/L [facility] Carbon Dioxide 24 22 - 31 mmol/L [facility] Anion Gap 11 5 - 15 mmol/L [facility] Calcium 9.6 8.5 - 10.5 mg/dL [facility] Est Glomerular Filtration Rate 90 >=60 mL/min/1. 73 m?? [facility] Comment: This patient's estimated GFR was [...] In Lab Alie Gil MD CHEMISTRY ORDERABLES [facility] [place] [address] * EKG 12 Lead (02/06/2023 4:54 PM EDT) Ventricular rate 59 BPM MUSE SYSTEM P-R Interval 576 ms MUSE SYSTEM QRS Duration 82 ms MUSE SYSTEM Q-T Interval 494 ms MUSE SYSTEM QTC Calculated (Bezet) 489 ms MUSE SYSTEM Calculated R [place] 2 degrees MUSE SYSTEM Calculated T [place] 5 degrees MUSE SYSTEM INTERPRETATION Sinus rhythm with 1st degree A-V block Septal infarct (cited on or before 22-JUL-2021) Abnormal ECG When compared with ECG of 22-JUL-2021 10:22, IA interval has increased T wave inversion less evident in Inferior leads QT has lengthened Confirmed by MD Palomo Danette ([id number]) on 02/07/2023 4:09:13 PM MUSE SYSTEM 02/06/2023 [...] Tue02/07/23 at 1844, Recovery (Recovery-Hospital Unit) New Bag 02/07/2023 10:45 AM EDT 100 mL/hr 100 [...] (Given - Provid er: Trung Alba RN)0920 ([facility] Hold - Provider: Admin Adt - Reason: Transfer to a Procedural area)1053 ([facility] Unhold - Provider: Admin Adt) levothyroxine (Synthroid) tablet 68.5 mcg 68.5 mcg, Oral, EVERY MORNING, First dose (after last modification) on Tue02/07/23 at 0600, Until Discontinued, Routine 0654 (Given - Provid er: Sean Lindo RN)0920 ([facility] Hold - Provider: Admin Adt - Reason: Transfer to a Procedural area)1053 ([facility] Unhold - Provider: Admin Adt) rosuvastatin (Crestor) tablet 40 mg 40 mg, Oral, EVERY EVENING, First dose on 02/06/23 at 1700, Until Discontinued, Routine 1657 (Given - Provider: Trung Alba RN) 0920 ([facility] Hold - Provider: Admin Adt - Reason: Transfer to a Procedural area)1053 ([facility] Unhold - Provider: Admin Adt)1857 (Given - Provider: Trung Alba RN) sodium chloride 0.9 % (flush) (BD PosiFlush Normal Saline 0.9) flush 5 mL 5 mL, Intravenous, 2 TIMES DAILY, First dose on 02/06/23 at 2100, Until Discontinued, Routine 2100 (Given - Provider: Sean Lindo RN) 0900 (Not Given - Provider: Trung Alba RN - Reason: See comment - Comment: infusing)0920 ([facility] Hold - Provider: Admin Adt - Reason: Transfer to a Procedural area)1053 ([facility] Unhold - Provider: Admin Adt) sodium chloride [...] for discomfort with PIV insertion, Routine 919 (Oct - Pro vider: Admin Adt - Reason: Transfer to a Procedural area)1053 ([facility] Unhold - Provider: Admin Adt) midazolam (pf) [...] - Reason: Transfer to a Procedural area)1053 ([facility] Unhold - Provider: Admin Adt) nitroGLYcerin 100 mcg/mL intracoronary dilution (CANCELED) PRN, Starting on Tue02/07/23 at 0931, Until Tue02/07/23 at 1003, Intra-Operative (Intra-Procedure), Routine 930 (Given - Provid er: MARGARITA [place]) sodium [...] Routine documented in this encounter Care Teams Senior Applications Engineer Relationship Specialty Start Date End Date Vicenta Ndiaye APRN [address] [place] [address] PCP - General Family Medicine 03/11/21 documented as of this encounter
--- OUTSIDE RECORDS SUMMARY | 2024-06-09 14:14 | XMS_ITS | Encounter Summary ---
Author Organization [facility] [place] [address] Care Team Providers Care Hotel Associate Name Role Phone Vicenta Ndiaye APRN Primary Care Provider [phone] Reason for Visit * Consultation (Routine) - Closed Specialty Diagnoses / Procedures Referred By Contact Referred To Contact Electrophysiology / Cardiology Diagnoses Bradycardia Mobitz (type) I (Wenckebach's) atrioventricular block Bradycardia; Mobitz type I, f/u Zio Patch results Rochelle Dooley MD [facility] [address] D[place] [address] [facility] [address] [place] [id number] Referral ID Status Reason Start Date Expiration Date V isits Requested Visits Authorized [id number] Closed Consult, Test & Treat 02/07/2023 02/07/2024 1 1 Encounter Details Date Type Department Care Team (Late st Contact Info) Description 03/31/2023 4:30 PM EDT Office Visit Cardiology at [address] [phone] Meagan Gonzalez PA [facility] [place] [address] Persistent atrial fibrillation; Atrial fibrillation, unspecified type; [...] no recent headaches, no N/V/D. Originally from [place]. 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 Lives in [place], [place] with her ,Jaime. Has a Ivy [...] were present. Isolated VEs were occasional (1.1%, [address]1007), VE Couplets were rare (<1.0%, 55), and [...] pacing may be considered given expectation for [employer]TER [employer]IPMENT pacing >> 40%. Benefits and risks of [...] pacemaker implant. We offered admission to the [facility] alth ough she prefers to wait until next week. Plan: 1. Schedule left-sided dual-chamber pacemaker - Abx: Ancef - Temp pacing: Not currently indicated - AC: on Xarelto - Sed: Moderate I appreciate the opportunity to be involved with Ms. Dave's care. Please do not hesitateto contact EP with any further questions (pager [phone]). The above case was discussed with EP consultattending, Tea Quinteros MD. MARGARITA Saul 5:30 PM 03/31/23 documented in this encounter Plan of Treatment Upcoming Encounters Date Type Department Care Team (Late st Contact Info) Description 07/13/2024 10:00 AM EST Hospital Encounter Non-[place] [address] Arrived documented as of this encounter Procedures [...] (Bezet) 415 ms MUSE SYSTEM Calculated R [place] 57 degrees MUSE SYSTEM Calculated T [place] -15 degrees MUSE SYSTEM INTERPRETATION Sinus rhythm [...] fibrillation documented in this encounter Care Teams Hotel Associate Relationship Specialty Start Date End Date Vicenta Ndiaye APRN [address] [place] [address] PCP - General Family Medicine 03/11/21 documented as of this encounter
--- OUTSIDE RECORDS SUMMARY | 2024-06-09 14:14 | XMS_ITS | Encounter Summary ---
[place] [address] Care Team Providers Care Family Service Aide Name Role Phone Senthil Vicenta ASIM Primary Care Provider [phone] Encounter Details Date Type Department Care Team (Late st Contact Info) Description 02/06/2023 External [place] [address] Social History Tobacco Use Types Packs/Day Years [...] AM EST Hospital Encounter Non-Invasive [place] [address] Arrived documented as of this encounter Procedures [...] on filedocumented in this encounter Care Teams Family Service Aide Relationship Specialty Start Date End Date Vicenta Ndiaye APRN [address] [place] [address] PCP - General Family Medicine 03/11/21 documented as of this encounter
--- OUTSIDE RECORDS SUMMARY | 2024-06-09 14:14 | XMS_ITS | Encounter Summary ---
Author Organization [facility] [place] [address] Care Team Providers Care Junk Dealer Name Role Phone Senthil Vicenta ASIM Primary Care Provider [phone] Encounter Details Date Type Department Care Team (Late st Contact Info) Description 04/07/2023 Orders Only Cardiology at [address] [phone] Robin Alvarado MD [facility] [place] [address] Social History Tobacco Use Types Packs/Day Years Used Date Smoking Tobacco: Former Passive Smoke Exposure: Past Smokeless Tobacco: Never Comments:college student for a few months Alcohol Use Standard Drinks/Week Comments Yes 3 (1 standard drink = 0.6 oz pur e alcohol) [facility] Inpatient Questions Answer Date Recorded Does Anyone [...] AM EST Hospital Encounter Non-In[place] [address] Arrived documented as of this encounter Visit Diagnoses Not on filedocumented in this encounter Care Teams Junk Dealer Relationship Specialty Start Date End Date Vicenta Ndiaye APRN [address] [place] [address] PCP - General Family Medicine 03/11/21 documented as of this encounter
--- OUTSIDE RECORDS SUMMARY | 2024-06-09 14:14 | XMS_ITS | Encounter Summary ---
[place] [address] Care Team Providers Care Fiberglass Fabricator Name Role Phone Vicenta Ndiaye APRN Primary Care Provider [phone] Encounter Details Date Type Department Care Team (Late st Contact Info) Description 04/08/2023 Orders Only Cardiology at [address] [phone] Meagan Gonzalez PA [facility] [place] [address] Persistent atrial fibrillation; Bradycardia Social History Tobacco [...] AM EST Hospital Encounter Non-Invasive [place] [address] Arrived documented as of this encounter Procedures [...] pain Interpreting Fellow: Yu Gonzalez. Exam Location: [facility]. Interpretation Summary Limited echocardiogram performed by on-call fellow. Left ventricle is normal in size with low-normal global systolic function with apical akinesis. Unable to rule out LV thrombus. Right ventricle is normal in size and systolic function. Moderate mitral regurgitation. Moderate tricuspid regurgitation. No pericardial effusion. Consider formal study with echo contrast to rule out apical clot. Procedure Limited - [id number]. Color Doppler - 99180. Suboptimal quality. There is a pacemaker rhythm. [...] pain Interpreting Fellow: Yu Gonzalez. Exam Location: [facility]. Interpretation Summary Limited echocardiogram performed by on-call fellow. Left ventricle is normal in size with low-normal global systolic functionwith apical akinesis. Unable to rule out LV thrombus. Right ventricle is normal in size and systolic function. Moderate mitral regurgitation. Moderate tricuspid regurgitation. No pericardial effusion. Consider formal study with echo contrast to rule out apical clot. Procedure Limited - 54795. Color Doppler - 67432. Suboptimal quality. There is apacemaker rhythm. Left [...] EDT) Glucose 100 65 - 199 mg/dL [facility] Comment:Diabetes: >=200 mg/d L plus symptoms Blood Urea Nitrogen 13 8 - 18 mg/dL [facility] Creatinine 0.69(L) 0.70 - 1.20 mg/dL [facility] Sodium 137 135 - 145 mmol/L [facility] Potassium 4.2 3.5 - 5.0 mmol/L [facility] Comment: Please note: ??Patients with WBC >100,000 may have falsely elevated Potassium levels. ??For accurate Potassium quantification in these patients send serum separator tube (gold top) for subsequent determinations. ??Contact the Clinical Chemistry Laboratory if there are any questions. Chloride 103 98 - 107 mmol/L [facility] Carbon Dioxide 22 22 - 31 mmol/L [facility] Anion Gap 12 5 - 15 mmol/L [facility] Calcium 9.6 8.5 - 10.5 mg/dL [facility] Est Glomerular Filtration Rate 89 >=60 mL/min/1. 73 m?? [facility] Comment: This patient's estimated GFR was [...] Vidal MD CHEMISTRY ORDERABLES Performing Organization Address City/State/[facility] Co de Phone Number [facility] [place] [address] documented in this encounter Visit Diagnoses Diagnosis Persistent atrial fibrillation Atrial fibrillation Bradycardia Other specified cardiac dysrhythmias documented in this encounter Care Teams Fiberglass Fabricator Relationship Specialty Start Date End Date Vicenta Ndiaye APRN [address] [place] [address] PCP - General Family Medicine 03/11/21 documented as of this encounter
--- OUTSIDE RECORDS SUMMARY | 2024-06-09 14:14 | XMS_ITS | Encounter Summary ---
[place] [address] Care Team Providers Care Enzyme Chemist Name Role Phone Vicenta Ndiaye APRN Primary Care Provider [phone] Reason for Visit * Reason Onset Date Comments Pre Procedure Call 04/01/2023 Encounter Details Date Type Department Care Team (Late st Contact Info) Description 04/01/2023 Telephone Cardiology at [address] [phone] Autumn Akbar RN Pre Procedure Call Social [...] EDTSummary: Pre Procedure Call: Pacemaker Implant EP SPLITTING MACHINE FEEDER COORDINATION CHECKLIST Patient Name: Elena Dave Patient Performing Data Programmer: Robin Alvarado Referring Provider: Meagan Gonzalez Date of Procedure: 04/08/23 Arrival Time/ Case Time: 1:00 pm / 2:00 pm Check In Location: [facility] Date Patient was Called: 04/05 [...] overnight , understands that they will need delivery driver assistant on day of discharge Notified pt that Abraham catheter may be placed on day of procedure depending on type & duration of case. documented in this encounter Plan of Treatment Upcoming Encounters Date Type Department Care Team (Late st Contact Info) Description 07/13/2024 10:00 AM [facility] Hospital Encounter [place] [address] Arrived documented as of this encounter Visit Diagnoses Not on filedocumented in this encounter Care Teams Enzyme Chemist Relationship Specialty Start Date End Date Vicenta Ndiaye APRN [address] [place] [address] PCP - General Family Medicine 03/11/21 documented as of this encounter
--- OUTSIDE RECORDS SUMMARY | 2024-06-09 14:14 | XMS_ITS | Encounter Summary ---
Author Organization [facility] Address [facility] [place] [address] Care Team Providers Care Frame Bander Name Role Phone Senthil Vicenta ASIM Primary Care Provider [phone] Encounter Details Date Type Department Care Team (Latest Contact Info) Description 09/10/2021 4:20 PM EST TH Visit (TeleHealth) Cardiology at [address] [phone] Robin Alvarado MD [facility] [place] [address] Persistent atrial fibrillation Social History Tobacco Use [...] Follow Up Patient ID Elena Dave [id number] Elena Dave is following up in EP [...] rivaroxaban, which she continues to take. Her [id number] score is at least 4 for HTN, [...] for right now (rivaroxaban for stroke prevention ([id number] score at least 4; no antiarrhythmic; no [...] AM EST Hospital Encounter Non-[place] [address] Arrived documented as of this encounter Visit Diagnoses Diagnosis Persistent atrial fibrillation Atrial fibrillation documented in this encounter Care Teams Frame Bander Relationship Specialty Start Date End Date Vicenta Ndiaye APRN [address] [place] [address] PCP - General Family Medicine 03/11/21 documented as of this encounter
--- OUTSIDE RECORDS SUMMARY | 2024-06-09 14:14 | XMS_ITS | Encounter Summary ---
[place] [address] Care Team Providers Care Loft Rigger Name Role Phone iVcenta Ndiaye APRN Primary Care Provider [phone] Encounter Details Date Type Department Care Team [...] st Contact Info) Description 07/13/2024 10:00 AM [facility] Hospital Encounter Non[place] [address] Arrived documented as of this encounter Visit Diagnoses Not on filedocumented in this encounter Care Teams Loft Rigger Relationship Specialty Start Date End Date Vicenta Ndiaye APRN [address] [place] [address] PCP - General Family Medicine 03/11/21 documented as of this encounter
--- OUTSIDE RECORDS SUMMARY | 2024-06-09 14:14 | XMS_ITS | Encounter Summary ---
[place] [address] Care Team Providers Care Shopping Investigator Name Role Phone Vicenta Ndiaye APRN Primary Care Provider [phone] Reason for Referral * Diagnostic Test (Routine) - Closed Specialty Diagnoses / Procedures Referred By Contac t Referred To Contact Cardiology Diagnoses Bradycardia Procedures Ziopatch 48 Hrs-15 Days Rochelle Dooley MD [facility] [place] [address] [facility] [place] [address] Referral ID Status Reason Start Date Expiration Date V isits Requested Visits Authorized [id number] Closed Specialty Service Requested 02/07/2023 02/07/2024 1 1 Reason for Visit * Diagnostic Test (Routine) - Closed Specialty Diagnoses / Procedures Referred By Contac t Referred To Contact Cardiology Diagnoses Bradycardia Procedures Ziopatch 48 Hrs-15 Days Rochelle Dooley MD [facility] [place] [address] [facility] [place] [address] Referral ID Status Reason Start Date Expiration Date V isits Requested Visits Authorized [id number] Closed Specialty Service Requested 02/07/2023 02/07/2024 1 1 Encounter Details Date Type Department Care Team (Latest Contact Info) Description 02/07/2023 4:00 PM EDT - 02/07/2023 11:59 PM EDT Hospital Encounter Non-Invasive Cardiology Lab [facility] [place] [address] Ilia Gil MD [facility] [place] [address] Bradycardia Discharge Disposition: Home Social History Tobacco [...] AM EST Hospital Encounter [place] [address] Arrived documented as of this encounter Procedures Procedure Name Priority Date/Time Associated Diagnosis Comments ELZAOPATCH 48 HRS-15 DAYS Routine 02/08/2023 7:05 AM EDT Bradycardia documented in this encounter Results * Ziopatch 48 Hrs-15 Days (02/08/2023 7:05 AM EDT) Anatomical Region Laterality Modality Other Narrative 03/02/2023 2:51 PM EDT Images from the original result were not included. [facility] ? 'Zio Patch' Ambulatory Cardiac Event Monitor [...] were present. Isolated VEs were occasional (1.1%, [id number]), VE Couplets were rare (<1.0%, 55), and [...] dysrhythmias documented in this encounter Care Teams Shopping Investigator Relationship Specialty Start Date End Date Vicenta Ndiaye APRN [address] [place] [address] PCP - General Family Medicine 03/11/21 documented as of this encounter
--- OUTSIDE RECORDS SUMMARY | 2024-06-09 14:14 | XMS_ITS | Encounter Summary ---
[place] [address] Care Team Providers Care Weaving Instructor Name Role Phone Vicenta Ndiaye APRN Primary Care Provider [phone] Reason for Visit * Auth/Cert (Routine) Specialty Diagnoses / Procedures Referred By Contac t Referred To Contact Diagnoses Unspecified atrioventricular block Bradycardia, unspecified Paroxysmal atrial fibrillation AV block [I44.30]Bradycardia [R00.1]PAF (paroxysmal atrial fibrillation) [I48.0] Procedures PRO INSERT NEW OR REPLACE HEART PACER XVENOUS ATRIAL/VENTRICULAR ELECTROPHYSIOLOGY PROCEDURE INSERT PERM PACEMAKER W\TRANSVENOUS ELECTRODES; ATRIAL & VENTRICULAR (WRVU 8.52) Robin Alvarado MD [facility] [place] [address] [facility] Referral ID Status Reason Start Date Expiration Date Visits Re quested Visits Authorized [id number] 1 1 Encounter Details Date Type Department Care Team (Late st Contact Info) Description 04/08/2023 2:00 PM EDT - 04/08/2023 5:00 PM EDT Surgery [place] [address] Robin Alvarado MD [facility] [place] [address] ELECTROPHYSIOLOGY PROCEDURE Social History Tobacco Use Types [...] Troponin level elevated Pacemaker - dual lead [employer] Resolved Hospital Problems No resolved problems [...] hours. No results for input(s): PHART, PO2ART, ZLC3ZIG in the last 72 hours. No results for input(s): PHVEN, VBA6WCF, PO2VEN, MII1TFG in the last 72 hours. Studies: TTE: [...] who have questions please contact the health pulmonary care nurse that requested your imaging first. Pending Studies [...] 04/20/2023 10:30 AM Etta Ag RN [facility] CARD 4A [facility] 05/19/2023 10:40 AM Rhonda Mike MD [facility] CARD 4A [facility] Your Inpatient Medical Team at [facility] Name(s) of your inpatient provider(s): Chauncey Neri MD, Eren Lema MD, Eneida Berger MD Your Primary Care Provider: Vicenta Senthil, PRINTED CIRCUIT BOARD ASSEMBLER [phone] For questions regarding this document or issues relating to this hospitalization on the Medical Service, please contact your inpatient physician through the [facility] Event Promotions Coordinator . Issues afterhours and on weekends will be handled by the Hospitalist staff on-call. General Instructions FINAL PACEMAKER RECOMMENDATIONS: 1. Standard post implant discharge instructions (see below): 2. Medications as listed above. Resume rivaroxaban(Xarelto) on TuesdayApril 11 PM You may use ice packs over the incision. Make sure to use a rib cloth knitter (such as a towel) in between the [...] F. The office scheduling phone number is [phone]. ARM MOVEMENT RESTRICTIONS POST-IMPLANT - Do not [...] please call the Cardiac ElectrophysiologyTriage Nurse at [phone], option 3. Future Appointments and Orders Future Appointments and Orders Future Appointments Provider Department Dept Phone 04/20/2023 10:30 AM Etta Ag RN Cardiology at [facility] Arrive at: Piping Engineer Area [phone] 05/19/2023 10:40 AM Rhonda iMke MD Cardiology at [facility] Arrive at: Piping Engineer Area [phone] Discharge References/Attachments: Discharge References/Attachments None Inpatient Provider Contact Information: Please call the hospital foil stamp operator at [phone] and ask to be connected with Cardiology Team S1 (pager [phone]). Electronically Signed By: Eren Lema MD 04/12/2023 [...] the incision. Make sure to use a rib cloth knitter (such as a towel) in between the [...] F. The office scheduling phone number is [phone]. ARM MOVEMENT RESTRICTIONS POST-IMPLANT - Do not [...] please call the Cardiac ElectrophysiologyTriage Nurse at [phone], option 3. * Patient Instructions* Eren Lema [...] 04/20/2023 10:30 AM Etta Ag RN [facility] CARD 4A [facility] 05/19/2023 10:40 AM Rhonda Mike MD [facility] CARD 4A [facility] Your Inpatient Medical Team at [facility] Name(s) of your inpatient provider(s): Chauncey Neri MD, Eren Lema MD, Eneida Berger MD Your Primary Care Provider: Vicenta Ndiaye, PRINTED CIRCUIT BOARD ASSEMBLER [phone] For questions regarding this document or issues relating to this hospitalization on the Medical Service, please contact your inpatient physician through the [facility] Event Promotions Coordinator . Issues afterhours and on weekends will [...] Eren Lema MD, PGY-1 Cardiology S1 (Pager [phone]) 04/11/2023 Associated attestation - Chauncey Neri MD [...] to the Office of Care Management - Head Gauge Unit Operator. * Tristen Bruce MD - 04/10/2023 7:39 [...] Tristen Bruce MD, PGY-3 Cardiology S1 (Pager [phone]) 04/10/2023 Associated attestation - Delgado Sanches MD [...] of two midnights or is on the [facility] inpatient only procedure list (status C) due to: acute myocardial infarction requiring titration of IV medication and fluid monitoring Delgado Sanches MD Cardiovascular Medicine Personal Pager [phone] 04/10/2023 10:17 PM * Neema Babin MD [...] Babin MD, PGY-1 Cardiology S 1 (Pager [phone]) 04/09/2023 Associated attestation - Delgado Sanches MD [...] of two midnights or is on the [facility] inpatient only procedure list (status C) due to: acute myocardial infarction requiring titration of IV medication and fluid monitoring Delgado Sanches MD Cardiovascular Medicine Personal Pager [phone] 04/09/2023 10:41 PM * Bradley Krishnan PA - 04/09/2023 8:21 AM EDT Patient Name: Elena Thacker Patient Age: 77 y.o. Birthdate: 1945 Admit date: 04/08/2023 Attending Physician: Delgado Sanches MD Cardiac Electrophysiology Post-Implant Device Interrogation Elena Thacker [id number] 04/09/2023 History: Elena Thacker is a 77 y.o. female with a history of symptomatic bradycardia andintermittent high grade AV block, who is POD#1 of a left sided dual lead [employer] pacemaker implantation. During the procedure she developed some right arm pain that migrated to her anteriorchest and back. Initially this was thought to be secondary to procedural positioning, however it did not resolve with repositioning and felt to her, to be similar to that pain which prompted her January2023 admission for [facility]. LHC at that time showed very mild [...] to auscultation bilaterally Neuro- A&Ox3 Device Interrogation: Food Court Team Member Model # Serial # Generator [employer] [id number] Atrial Lead [employer] [id number] Ventricular Lead [employer] [id number] DDDR @ 60/130/130 AP 90%; BOAT CAPTAIN 98% Battery and Leads Voltage: -- Status: [...] who is s/p left sided dual lead [employer] pacemaker implantation for sinus node dysfunction [...] Please feel free to contact EP Service (#[id number]), if additional issues arise, otherwise, EP signing off. Provider: MARGARITA Simmons EP Consult attending physician: Javi Quinteros MD EP Consult positional pager #[phone](EPNY) EP Device interrogation positional pager # [phone] Associated attestation - Tae Quinteros MD - 04/09/2023 11:21 AM EDT Cardiac Electrophysiology Attending Addendum: The patient was seen, interviewed and examined by me, and Bradley Krishnan's note above was reviewed by me and agreed with. 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 Tae Quinteros MD, PhD, [facility] Cardiac Electrophysiology documented in this encounter H&P Notes * Yu Gonzalez MD - 04/09/2023 3:27 AM EDT Images from the original note were not included. Cardiology H&P Patient info: Name: Elena Thacker : 1945 PCP: Vicenta Ndiaye APRN PCP phone number: [phone] Date of Admission: 04/08/2023 ( Hospital Day [...] PMH No past medical history on file. [facility] Past Surgical History: Procedure Laterality Date PRO CARDIOVERSION ELECTIVE ARRHYTHMIA EXTERNAL N/A 07/16/2021 CARDIOVERSION-ELECTIVE (WRVU 2.25) performed by Janett Vidal MD at [facility] Family History No family [...] Gas) No results found for: PHART, PO2ART, BJQ7BTH, NCC6JSR Microbiology: Microbiology Results (Last 30 days) No [...] to peak, resolution chest pain, checked by foundry patternmaker I personally performed 70 minutes of aggregate critical care time exclusive of procedures and teaching during this visit. This includes time spent during direct patient evaluation and reassessment, interpreting diagnostic tests, directing life and/or organ supporting interventions, and documentation. Yu Gonzalez MD [facility] Boring Machine Operator Double End, PGY-6 Pager #[phone] Can [employer] message me 7AM-4PM on weekdays for non-urgent [...] in agreement. Family history is norable for CO in her father and subaortic stenosis in [...] of two midnights or is on the [facility] inpatient only procedure list (status C) due to: acute myocardial infarction requiring titration of IV medication and fluid monitoring Delgado Sanches MD Cardiovascular Medicine Personal Pager [phone] 04/09/2023 3:15 PM * Robin Alvarado MD [...] Plan: Admit for observation Interval history: Elena Thcaker is a 77 y.o. woman who presents [...] in agreement. Dr. Robin Alvarado, electrophysiology attending ([id number]) documented in this encounter Miscellaneous Notes * [...] surrogate would be surrogate decision maker per [place] surrogate decision making law. (Only good for 180 days) Any patient receiving care in [place] must abide by [place] law. The hierarchy for surrogate decision making is: (a) Patient???s spouse or civil union partner unless there is a divorce proceeding, separation agreement, or restraining order limiting that person???s relationship with the patient. Leon Keith (spouse) is SDM [phone] (b) Any adult son or daughter of the patient. (c) Either parent of the patient. (d) Any adult brother or sister of the patient. (e) Any adult grandchild of the patient. (f) Any grandparent of the patient. (g) Any adult aunt, uncle, niece, or nephew of the patient. (h) A close friend of the patient. (i) The agent with financial power of mergers and acquisitions attorney or a conservator appointed in accordance [...] bar - tub/shower Home Address confirmed as: [address] [place] [phone] Social & Family Supports: All names listed below confirmed with patient as current and correct Extended Emergency Contact Information Primary Emergency Contact: Leon Keith Address: [address] [place] [address] [facility] Mobile Relation: Other Current Care Provided by: [...] Coverage: Yes (AETNA Managed Medicare) Preferred Pharmacy: [facility] [address] [address] [place] Status: Patient is a : No Primary Care Provider confirmed: Vicenta Ndiaye APRN [phone] Patient/Caregiver Goals of Treatment: home with spouse [...] Operative Note Patient Name: Elena Thacker : [id number] MR#: [id number] Case Date: 04/08/2023 Surgeon: Surgeon(s) and Role: [...] AM EST Hospital Encounter Non-In[place] [address] Arrived Scheduled Orders Name Type [...] (Bezet) 533 ms MUSE SYSTEM Calculated P [place] 0 degrees MUSE SYSTEM Calculated R [place] -81 degrees MUSE SYSTEM Calculated T [place] 132 degrees MUSE SYSTEM INTERPRETATION AV dual-paced rhythm Abnormal ECG When compared with ECG of 11-APR-2023 06:47, Vent. rate has decreased BY ??33 BPM I personally reviewed the tracing and edited the fellows interpretation Confirmed by fellow MD Usha, Jacob ([id number]) on 04/13/2023 2:59:22 PM Confirmed by MD Li Jon ([id number]) on 04/13/2023 4:42:47 PM MUSE SYSTEM 04/12/2023 6:53 AM EDT 04/13/2023 4:42 PM EDT Delgado Sanches MD ECG ORDERABLES MUSE SYSTEM * Differential, Automated (04/12/2023 3:53 AM EDT) Neutrophil % 40.4 % [facility] Neutrophil Absolute 2.01 1.70 - 6.10 x10(3)/[facility] Lymph % 45.8 % [facility] Lymphocytes Abs 2.3 0.9 - 3.2 x10(3)/[facility] Monocyte % 10.6 % [facility] Monocyte Abs 0.5 0.3 - 0.9 x10(3)/[facility] Eos % 1.8 % [facility] Eosinophils Abs 0.1 0.0 - 0.4 x10(3)/[facility] Basophil % 1.0 % [facility] Baso Absolute 0.0 0.0 - 0.1 x10(3)/[facility] Immature Gran % 0.40 % [facility] Comment: Immature granulocytes(IG's)percentage and absolute count will include metamyelocytes, myelocytes, and promyelocytes. Blood smears from CBCs yielding IG's will be scanned manually for concordance. If this scan disagrees with the automated IG or if promyelocytes are noted, a manual differential will be performed. Immature Gran Absolute 0.02 0.00 - 0.04 x10(3)/[facility] Blood 04/12/2023 3:53 AM EDT 04/12/2023 4:05 AM EDT Narrative Resulting Agency Comment Spec In Lab Neema Babin MD HEMATOLOGY ORDERABLE S [facility] [place] [address] * (ABNORMAL) Hemogram (04/12/2023 3:53 AM EDT) White Blood Cell 5.0 4.0 - 9.5 x10(3)/mc L [facility] Red Blood Cell 3.78(L) 4.00 - 5.21 x10(6)/mc L [facility] Hemoglobin 11.8 11.7 - 15.5 g/dL [facility] Hematocrit 34.4(L) 35.7 - 45.8 % [facility] Mean Cell Volume 91.0 82.6 - 94.4 fL [facility] Mean Cell Hemoglobin 31.2 27.1 - 32.0 pg [facility] Mean Cell Hemoglobin Concentration 34.3 31.7 - 35.0 g/dL [facility] Platelet 143(L) 145 - 357 x10(3)/mc L [facility] RDW Standard Deviation 42.3 37.0 - 46.0 fL [facility] RDW coefficient of variation 12.8 11.5 - 14.1 % [facility] Mean Platelet Volume 10.1 7.6 - 12.9 fL [facility] NRBC% auto 0.0 % [facility] NRBC Absolute 0.000 0.000 - 0.000 x10(3)/ L [facility] Blood 04/12/2023 3:53 AM EDT 04/12/2023 4:05 AM EDT Narrative Resulting Agency Comment Spec In Lab Neema Babin MD HEMATOLOGY ORDERABLE S [facility] [place] [address] * (ABNORMAL) BMP w/fasting Glucose (04/12/2023 3:53 AM EDT) Glucose Fasting 105(H) 65 - 99 mg/dL [facility] Comment: ?Fasting* Glucose Interpretive Criteria Normal [...] of Diabetes Mellitus, Position Statement from the [place] [employer]. ??Diabetes Care, Volume 33, Supplement 1, Aug 2009 Blood Urea Nitrogen 15 8 - 18 mg/dL [facility] Creatinine 0.74 0.70 - 1.20 mg/dL [facility] Sodium 134(L) 135 - 145 mmol/L [facility] Potassium 3.6 3.5 - 5.0 mmol/L [facility] Comment: Please note: ??Patients with WBC >100,000 may have falsely elevated Potassium levels. ??For accurate Potassium quantification in these patients send serum separator tube (gold top) for subsequent determinations. ??Contact the Clinical Chemistry Laboratory if there are any questions. Chloride 101 98 - 107 mmol/L [facility] Carbon Dioxide 22 22 - 31 mmol/L [facility] Anion Gap 11 5 - 15 mmol/L [facility] Calcium 8.9 8.5 - 10.5 mg/dL [facility] Est Glomerular Filtration Rate 83 >=60 mL/min/1. 73 m?? [facility] Comment: This patient's estimated GFR was [...] Sanches MD CHEMISTRY ORDERABLES Performing Organization Address City/State/[facility] Co de Phone Number [facility] [place] [address] * EKG 12 Lead (04/11/2023 6:47 AM EDT) Ventricular rate 95 BPM MUSE SYSTEM Atrial Rate 95 BPM MUSE SYSTEM P-R Interval 126 ms MUSE SYSTEM QRS Duration 154 ms MUSE SYSTEM Q-T Interval 422 ms MUSE SYSTEM QTC Calculated (Bezet) 530 ms MUSE SYSTEM Calculated P [place] 32 degrees MUSE SYSTEM Calculated R [place] -81 degrees MUSE SYSTEM Calculated T [place] 94 degrees MUSE SYSTEM INTERPRETATION Atrial-sensed ventricular-paced rhythm Abnormal ECG When compared with ECG of 10-APR-2023 06:27, Premature ventricular complexes are no longer Present Vent. rate has increased BY ??28 BPM I personally reviewed the tracing and edited the fellows interpretation Confirmed by fellow Jorge Brewer ([id number]) on 04/11/2023 5:14:52 PM Confirmed by MD Ellie, [place] ([id number]) on 04/12/2023 7:04:14 PM MUSE SYSTEM 04/11/2023 6:47 AM EDT 04/12/2023 7:04 PM EDT Delgado Sanches MD ECG ORDERABLES Performing Organization Address City/[facility] Co de Phone Number MUSE SYSTEM * Differential, Automated (04/11/2023 2:44 AM EDT) Pathologist [facility] Neutrophil % 63.9 % [facility] Neutrophil Absolute 3.93 1.70 - 6.10 x10(3)/[facility] Lymph % 26.1 % [facility] Lymphocytes Abs 1.6 0.9 - 3.2 x10(3)/[facility] Monocyte % 8.6 % [facility] Monocyte Abs 0.5 0.3 - 0.9 x10(3)/[facility] Eos % 0.6 % [facility] Eosinophils Abs 0.0 0.0 - 0.4 x10(3)/[facility] Basophil % 0.5 % [facility] Baso Absolute 0.0 0.0 - 0.1 x10(3)/[facility] Immature Gran % 0.30 % [facility] Comment: Immature granulocytes(IG's)percentage and absolute count will include metamyelocytes, myelocytes, and promyelocytes. Blood smears from CBCs yielding IG's will be scanned manually for concordance. If this scan disagrees with the automated IG or if promyelocytes are noted, a manual differential will be performed. Immature Gran Absolute 0.02 0.00 - 0.04 x10(3)/[facility] Blood 04/11/2023 2:44 AM EDT 04/11/2023 3:25 AM EDT Narrative Resulting Agency Comment Spec In Lab Neema Babin MD HEMATOLOGY ORDERABLE S [facility] [place] [address] * Hemogram (04/11/2023 2:44 AM EDT) White Blood Cell 6.2 4.0 - 9.5 x10(3)/[facility] Red Blood Cell 4.12 4.00 - 5.21 x10(6)/[facility] Hemoglobin 12.6 11.7 - 15.5 g/dL [facility] Hematocrit 37.6 35.7 - 45.8 % [facility] Mean Cell Volume 91.3 82.6 - 94.4 fL [facility] Mean Cell Hemoglobin 30.6 27.1 - 32.0 pg [facility] Mean Cell Hemoglobin Concentration 33.5 31.7 - 35.0 g/dL [facility] Platelet 152 145 - 357 x10(3)/[facility] RDW Standard Deviation 43.0 37.0 - 46.0 fL [facility] RDW coefficient of variation 13.0 11.5 - 14.1 % [facility] Mean Platelet Volume 10.6 7.6 - 12.9 fL [facility] NRBC% auto 0.0 % [facility] NRBC Absolute 0.000 0.000 - 0.000 x10(3)/[facility] Blood 04/11/2023 2:44 AM EDT 04/11/2023 3:25 AM EDT Narrative Resulting Agency Comment Spec In Lab Neema Babin MD HEMATOLOGY ORDERABLE S Performing Organization Address [facility] Co de Phone Number [facility] [place] [address] * Heparin (unfractionated) Level (04/11/2023 2:44 AM EDT) UF Heparin 0.38 IU/mL [facility] Comment: Heparin (anti-Xa) levels should be [...] MD HEMATOLOGY ORDERABLE S Performing Organization Address [facility] Co de Phone Number [facility] [place] [address] * (ABNORMAL) BMP w/fasting Glucose (04/11/2023 2:44 AM EDT) Glucose Fasting 133(H) 65 - 99 mg/dL [facility] Comment: ?Fasting* Glucose Interpretive [...] of Diabetes Mellitus, Position Statement from the [place] [employer]. ??Diabetes Care, Volume 33, Supplement 1, Aug 2009 Blood Urea Nitrogen 10 8 - 18 mg/dL [facility] Creatinine 0.60(L) 0.70 - 1.20 mg/dL [facility] Sodium 134(L) 135 - 145 mmol/L [facility] Potassium 3.6 3.5 - 5.0 mmol/L [facility] Comment: Please note: ??Patients with WBC >100,000 may have falsely elevated Potassium levels. ??For accurate Potassium quantification in these patients send serum separator tube (gold top) for subsequent determinations. ??Contact the Clinical Chemistry Laboratory if there are any questions. Chloride 101 98 - 107 mmol/L [facility] Carbon Dioxide 22 22 - 31 mmol/L [facility] Anion Gap 11 5 - 15 mmol/L [facility] Calcium 9.2 8.5 - 10.5 mg/dL [facility] Est Glomerular Filtration Rate 92 >=60 mL/min/1. 73 m?? [facility] Comment: This patient's estimated GFR was [...] In Lab Delgado Sanches MD CHEMISTRY ORDERABLES [facility] [place] [address] * TSH [place] (04/11/2023 2:44 AM EDT) Pathologist [facility] Thyroid Stimulating Hormone 3.18 0.27 - 4.20 mcIU/mL [facility] Comment: Reference Interval (mcIU/mL): Females: ??First Trimester: 0.23-3.88 ??Second Trimester: 0.22-3.90 ??Third Trimester: 0.44-4.66 Blood 04/11/2023 2:44 AM EDT 04/11/2023 3:25 AM EDT Narrative Resulting Agency Comment Spec In Lab Delgado Sanches MD CHEMISTRY ORDERABLES [facility] [place] [address] * EKG 12 Lead (04/10/2023 6:27 AM EDT) Pathologist [facility] Ventricular rate 67 BPM MUSE SYSTEM Atrial Rate 67 BPM MUSE SYSTEM P-R Interval 166 ms MUSE SYSTEM QRS Duration 164 ms MUSE SYSTEM Q-T Interval 504 ms MUSE SYSTEM QTC Calculated (Bezet) 532 ms MUSE SYSTEM Calculated P [place] 32 degrees MUSE SYSTEM Calculated R [place] -72 degrees MUSE SYSTEM Calculated T [place] 132 degrees MUSE SYSTEM INTERPRETATION Atrial-sensed ventricular-pa mary rhythm Occasional Premature ventricular complexes Abnormal ECG When compared with ECG of 09-APR-2023 23:06, Premature ventricular complexes are now Present Vent. rate has increased BY ?? 4 BPM Confirmed by MD Dewey, Delgado ([id number]) on 04/11/2023 8:25:36 AM MUSE SYSTEM 04/10/2023 6:27 AM EDT 04/11/2023 8:25 AM EDT Delgado Sanches MD ECG ORDERABLES MUSE SYSTEM * Differential, Automated (04/10/2023 5:17 AM EDT) Pathologist [facility] Neutrophil % 55.1 % [facility] Neutrophil Absolute 3.50 1.70 - 6.10 x10(3)/[facility] Lymph % 33.4 % [facility] Lymphocytes Abs 2.1 0.9 - 3.2 x10(3)/[facility] Monocyte % 8.8 % [facility] Monocyte Abs 0.6 0.3 - 0.9 x10(3)/[facility] Eos % 2.0 % [facility] Eosinophils Abs 0.1 0.0 - 0.4 x10(3)/[facility] Basophil % 0.5 % [facility] Baso Absolute 0.0 0.0 - 0.1 x10(3)/[facility] Immature Gran % 0.20 % [facility] Comment: Immature granulocytes(IG's)percentage and absolute count will include metamyelocytes, myelocytes, and promyelocytes. Blood smears from CBCs yielding IG's will be scanned manually for concordance. If this scan disagrees with the automated IG or if promyelocytes are noted, a manual differential will be performed. Immature Gran Absolute 0.01 0.00 - 0.04 x10(3)/[facility] LABORATORY Blood 04/10/2023 5:17 AM EDT 04/10/2023 5:21 AM EDT Narrative Resulting Agency Comment Spec In Lab Neema Babin MD HEMATOLOGY ORDERABLE S [facility] [place] [address] * Hemogram (04/10/2023 5:17 AM EDT) White Blood Cell 6.4 4.0 - 9.5 x10(3)/[facility] LABORATORY Red Blood Cell 4.29 4.00 - 5.21 x10(6)/[facility] LABORATORY Hemoglobin 13.4 11.7 - 15.5 g/dL [facility] Hematocrit 39.0 35.7 - 45.8 % [facility] Mean Cell Volume 90.9 82.6 - 94.4 fL [facility] Mean Cell Hemoglobin 31.2 27.1 - 32.0 pg [facility] Mean Cell Hemoglobin Concentration 34.4 31.7 - 35.0 g/dL [facility] Platelet 158 145 - 357 x10(3)/[facility] LABORATORY RDW Standard Deviation 42.9 37.0 - 46.0 fL [facility] RDW coefficient of variation 13.1 11.5 - 14.1 % [facility] Mean Platelet Volume 10.2 7.6 - 12.9 fL [facility] NRBC% auto 0.0 % [facility] LABORAT[facility] NRBC Absolute 0.000 0.000 - 0.000 x10(3)/mcL [facility] Blood 04/10/2023 5:17 AM EDT 04/10/2023 5:21 AM EDT Narrative Resulting Agency Comment Spec In Lab Neema Babin MD HEMATOLOGY ORDERABLE S Performing Organization Address City/[facility]/ZIP Co de Phone Number [facility] [place] [address] * Heparin (unfractionated) Level (04/10/2023 5:17 AM EDT) UF Heparin 0.46 IU/mL [facility] Comment: Heparin (anti-Xa) levels should be [...] MD HEMATOLOGY ORDERABLE S Performing Organization Address City/[facility]/ZIP Co de Phone Number [facility] [place] [address] * (ABNORMAL) BMP w/fasting Glucose (04/10/2023 5:17 AM EDT) Glucose Fasting 117(H) 65 - 99 mg/dL [facility] Comment: ?Fasting* Glucose Interpretive Criteria Normal [...] of Diabetes Mellitus, Position Statement from the [place] [employer]. ??Diabetes Care, Volume 33, Supplement 1, Aug 2009 Blood Urea Nitrogen 13 8 - 18 mg/dL [facility] Creatinine 0.64(L) 0.70 - 1.20 mg/dL [facility] Sodium 137 135 - 145 mmol/L [facility] Potassium 4.0 3.5 - 5.0 mmol/L [facility] Comment: Please note: ??Patients with WBC >100,000 may have falsely elevated Potassium levels. ??For accurate Potassium quantification in these patients send serum separator tube (gold top) for subsequent determinations. ??Contact the Clinical Chemistry Laboratory if there are any questions. Chloride 104 98 - 107 mmol/L [facility] Carbon Dioxide 22 22 - 31 mmol/L [facility] Anion Gap 11 5 - 15 mmol/L [facility] Calcium 9.2 8.5 - 10.5 mg/dL [facility] Est Glomerular Filtration Rate 91 >=60 mL/min/1. 73 m?? [facility] Comment: This patient's estimated GFR was [...] In Lab Delgado Sanches MD CHEMISTRY ORDERABLES [facility] [place] [address] * (ABNORMAL) Troponin (04/10/2023 5:17 AM EDT) Troponin-T, High Sensitivity 46(H) <=14 ng/L [facility] Comment: This patient's troponin T concentration [...] troponin value can be found in the [facility] Laboratory Test Catalog Troponin - [facility] Laboratory Test Catalog Reference: Fourth [place] Definition of Myocardial Infarction. Journal of the [place] [employer] 2018;72:6606-4271 Blood 04/10/2023 5:17 AM EDT 04/10/2023 5:21 AM EDT Narrative Resulting Agency Comment Spec In Lab Delgado Sanches MD CHEMISTRY ORDERABLES Performing Organization Address City/[facility]/ZIP Co de Phone Number [facility] [place] [address] * EKG 12 Lead (04/09/2023 11:06 PM EDT) Ventricular rate 63 BPM MUSE SYSTEM Atrial Rate 63 BPM MUSE SYSTEM P-R Interval 168 ms MUSE SYSTEM QRS Duration 160 ms MUSE SYSTEM Q-T Interval 476 ms MUSE SYSTEM QTC Calculated (Bezet) 487 ms MUSE SYSTEM Calculated P [place] 40 degrees MUSE SYSTEM Calculated R [place] -64 degrees MUSE SYSTEM Calculated T [place] 108 degrees MUSE SYSTEM INTERPRETATION AV dual-paced rhythm Abnormal ECG When compared with ECG of 09-APR-2023 21:51, Vent. rate has decreased BY ?? 5 BPM Confirmed by Ilia Gil MD ([id number]) on 04/12/2023 4:41:40 PM MUSE SYSTEM 04/09/2023 11:0 6 PM EDT 04/12/2023 4:41 PM EDT Delgado Sanches MD ECG ORDERABLES Performing Organization Address City/[facility]/ZIP Co de Phone Number MUSE SYSTEM * Heparin (unfractionated) Level (04/09/2023 10:19 PM EDT) Pathologist [facility] UF Heparin 0.46 IU/mL [facility] Comment: Heparin (anti-Xa) [...] Lab Delgado Sanches MD HEMATOLOGY ORDERABLE S [facility] [place] [address] * (ABNORMAL) Troponin (04/09/2023 10:19 PM EDT) Troponin-T, High Sensitivity 60(H) <=14 ng/L [facility] Comment: This patient's troponin T concentration [...] troponin value can be found in the [facility] Laboratory Test Catalog Troponin - [facility] Laboratory Test Catalog Reference: Fourth [place] Definition of Myocardial Infarction. Journal of the [place] [employer] 2018;72:7569-3181 Blood 04/09/2023 10:1 9 PM EDT 04/09/2023 10:37 PM EDT Narrative Resulting Agency Comment Spec In Lab Delgado Sanches MD CHEMISTRY ORDERABLES [facility] [place] [address] * EKG 12 Lead (04/09/2023 9:51 PM EDT) Ventricular rate 68 BPM MUSE SYSTEM Atrial Rate 68 BPM MUSE SYSTEM P-R Interval 162 ms MUSE SYSTEM QRS Duration 164 ms MUSE SYSTEM Q-T Interval 492 ms MUSE SYSTEM QTC Calculated (Bezet) 523 ms MUSE SYSTEM Calculated P [place] 71 degrees MUSE SYSTEM Calculated R [place] -68 degrees MUSE SYSTEM Calculated T [place] 81 degrees MUSE SYSTEM INTERPRETATION AV dual-paced rhythm Abnormal ECG When compared with ECG of 08-APR-2023 18:57, Vent. rate has decreased BY ?? 3 BPM Confirmed by MD Sanches Danette ([id number]) on 04/11/2023 8:25:11 AM MUSE SYSTEM 04/09/2023 9:51 PM EDT 04/11/2023 8:25 AM EDT Robin Alvarado MD ECG ORDERABLES MUSE SYSTEM * (ABNORMAL) Troponin (04/09/2023 10:53 AM EDT) Troponin-T, High Sensitivity 84(H) <=14 ng/L [facility] Comment: This patient's troponin T concentration [...] troponin value can be found in the [facility] Laboratory Test Catalog Troponin - [facility] Laboratory Test Catalog Reference: Fourth [place] Definition of Myocardial Infarction. Journal of the [place] [employer] 2018;72:2542-9178 Blood 04/09/2023 10:5 3 AM EDT 04/09/2023 11:14 AM EDT Narrative Resulting Agency Comment Spec In Lab Delgado Sanches MD CHEMISTRY ORDERABLES Performing Organization Address City/[facility] Co de Phone Number [facility] [place] [address] * (ABNORMAL) Basic Metabolic Panel (non-fasting) (04/09/2023 10:53 AM EDT) Glucose 97 65 - 199 mg/dL [facility] Comment:Diabetes: >=200 mg/d L plus symptoms Blood Urea Nitrogen 9 8 - 18 mg/dL [facility] Creatinine 0.63(L) 0.70 - 1.20 mg/dL [facility] Sodium 140 135 - 145 mmol/L [facility] Potassium 4.1 3.5 - 5.0 mmol/L [facility] Comment: Please note: ??Patients with WBC >100,000 may have falsely elevated Potassium levels. ??For accurate Potassium quantification in these patients send serum separator tube (gold top) for subsequent determinations. ??Contact the Clinical Chemistry Laboratory if there are any questions. Chloride 107 98 - 107 mmol/L [facility] Carbon Dioxide 24 22 - 31 mmol/L [facility] Anion Gap 9 5 - 15 mmol/L [facility] Calcium 9.1 8.5 - 10.5 mg/dL [facility] Est Glomerular Filtration Rate 91 >=60 mL/min/1. 73 m?? [facility] Comment: This patient's estimated GFR was [...] Sanches MD CHEMISTRY ORDERABLES Performing Organization Address [facility] Co de Phone Number [facility] [place] [address] * ECHO LMTD W CONTRAST W LMTD SPEC DOPP COLOR DOPP (04/09/2023 8:10 AM EDT) EF 45 HEARTLAB SYSTEM Anatomical Region Laterality Modality Cardiac Other 04/09/2023 7:37 AM EDT Narrative 04/09/2023 1:02 PM EDT ? Echocardiogram Report Name: ELENA THACKER ? Study Date: 04/09/2023 07:37 AMBP: 139/67 mmHg ? Patient Location: U^SS01^A : 1945 ? Height: 160 cm ? Account: [id number] Age: 77 yrs ? Weight: 81 kg Gender: Female ?BSA: 1.8 m2 Ordering Physician: DELGADO SANCHES Performed By: RAMON Choe Reason For Study: NSTEMI Exam Location: [facility]. Interpretation Summary Left ventricle is of normal [...] MR is more prominent. Procedure Limited - 57017. Color Doppler - 48421. limited spectral 48800. Image enhancement Optison was used for left [...] Location:U^SS01^A : 1945 Height: 160 cm Account: [id number] Age: 77 yrs Weight: 81 kg Gender: Female BSA: 1.8 m2 Ordering Physician: DELGADO SANCHES Performed By: RAMON Choe Reason For Study: NSTEMI Exam Location: [facility]. Interpretation Summary Left ventricle is of normal [...] MR is more prominent. Procedure Limited - 81212. Color Doppler - 49971. limited spectral 21626. Imageenhancement Optison was used for left ventricular [...] EDT) Glucose 97 65 - 199 mg/dL [facility] Comment:Diabetes: >=200 mg/d L plus symptoms Blood Urea Nitrogen 10 8 - 18 mg/dL [facility] Creatinine 0.66(L) 0.70 - 1.20 mg/dL [facility] Sodium 139 135 - 145 mmol/L [facility] Potassium 4.2 3.5 - 5.0 mmol/L [facility] Comment: Please note: ??Patients with WBC >100,000 may have falsely elevated Potassium levels. ??For accurate Potassium quantification in these patients send serum separator tube (gold top) for subsequent determinations. ??Contact the Clinical Chemistry Laboratory if there are any questions. Chloride 107 98 - 107 mmol/L [facility] Carbon Dioxide 25 22 - 31 mmol/L [facility] Anion Gap 7 5 - 15 mmol/L [facility] Calcium 9.1 8.5 - 10.5 mg/dL [facility] Est Glomerular Filtration Rate 90 >=60 mL/min/1. 73 m?? [facility] Comment: This patient's estimated GFR was [...] In Lab Delgado Sanches MD [place] [address] * Differential, Automated (04/09/2023 7:05 AM EDT) Neutrophil % 62.6 % [facility] Neutrophil Absolute 3.35 1.70 - 6.10 x10(3)/[facility] LABORATORY Lymph % 28.2 % [facility] LABORATORY Lymphocytes Abs 1.5 0.9 - 3.2 x10(3)/[facility] LABORATORY Monocyte % 7.7 % [facility] LABOR[facility] Monocyte Abs 0.4 0.3 - 0.9 x10(3)/[facility] LABORATORY Eos % 0.9 % [facility] Eosinophils Abs 0.0 0.0 - 0.4 x10(3)/[facility] LABORATORY Basophil % 0.4 % [facility] Baso Absolute 0.0 0.0 - 0.1 x10(3)/[facility] LABORATORY Immature Gran % 0.20 % [facility] Comment: Immature granulocytes(IG's)percentage and absolute count will include metamyelocytes, myelocytes, and promyelocytes. Blood smears from CBCs yielding IG's will be scanned manually for concordance. If this scan disagrees with the automated IG or if promyelocytes are noted, a manual differential will be performed. Immature Gran Absolute 0.01 0.00 - 0.04 x10(3)/[facility] LABORATORY Blood 04/09/2023 7:05 AM EDT 04/09/2023 7:23 AM EDT Narrative Resulting Agency Comment Spec In Lab Neema Babin MD [place] [address] * Hemogram (04/09/2023 7:05 AM EDT) White Blood Cell 5.4 4.0 - 9.5 x10(3)/[facility] LABORATORY Red Blood Cell 4.29 4.00 - 5.21 x10(6)/[facility] LABORATORY Hemoglobin 13.6 11.7 - 15.5 g/dL [facility] Hematocrit 39.3 35.7 - 45.8 % [facility] Mean Cell Volume 91.6 82.6 - 94.4 fL [facility] Mean Cell Hemoglobin 31.7 27.1 - 32.0 pg [facility] Mean Cell Hemoglobin Concentration 34.6 31.7 - 35.0 g/dL [facility] Platelet 154 145 - 357 x10(3)/[facility] LABORATORY RDW Standard Deviation 42.7 37.0 - 46.0 fL [facility] RDW coefficient of variation 12.8 11.5 - 14.1 % [facility] Mean Platelet Volume 10.4 7.6 - 12.9 fL [facility] NRBC% auto 0.0 % [facility] NRBC Absolute 0.000 0.000 - 0.000 x10(3)/[facility] LABORATORY Blood 04/09/2023 7:05 AM EDT 04/09/2023 7:23 AM EDT Narrative Resulting Agency Comment Spec In Lab Neema Babin MD HEMATOLOGY ORDERABLE S [facility] [place] [address] * (ABNORMAL) BMP w/fasting Glucose (04/09/2023 7:05 AM EDT) Glucose Fasting 97 65 - 99 mg/dL [facility] Comment: ?Fasting* Glucose Interpretive Criteria Normal [...] of Diabetes Mellitus, Position Statement from the [place] [employer]. ??Diabetes Care, Volume 33, Supplement 1, Aug 2009 Blood Urea Nitrogen 10 8 - 18 mg/dL [facility] Creatinine 0.67(L) 0.70 - 1.20 mg/dL [facility] Sodium 137 135 - 145 mmol/L [facility] Potassium 4.1 3.5 - 5.0 mmol/L [facility] Comment: Please note: ??Patients with WBC >100,000 may have falsely elevated Potassium levels. ??For accurate Potassium quantification in these patients send serum separator tube (gold top) for subsequent determinations. ??Contact the Clinical Chemistry Laboratory if there are any questions. Chloride 104 98 - 107 mmol/L [facility] Carbon Dioxide 24 22 - 31 mmol/L [facility] Anion Gap 9 5 - 15 mmol/L [facility] Calcium 9.2 8.5 - 10.5 mg/dL [facility] Est Glomerular Filtration Rate 90 >=60 mL/min/1. 73 m?? [facility] Comment: This patient's estimated GFR was [...] In Lab Delgado Sanches MD CHEMISTRY ORDERABLES [facility] [place] [address] * XR Chest PA & Lateral (Generic) [...] who have questions please contact the health pulmonary care nurse that requested your imaging first. ? Narrative [...] patients who have questions please contactthe health pulmonary care nurse that requested your imaging first. Delgado Sanches MD IMG DX ORDERABLES * (ABNORMAL) Troponin (04/09/2023 4:00 AM EDT) Troponin-T, High Sensitivity 113(H) <=14 ng/L [facility] Comment: This patient's troponin T concentration [...] troponin value can be found in the [facility] Laboratory Test Catalog Troponin - [facility] Laboratory Test Catalog Reference: Fourth [place] Definition of Myocardial Infarction. Journal of the [place] [employer] 2018;72:6648-1084 Blood 04/09/2023 4:00 AM EDT 04/09/2023 4:24 AM EDT Narrative Resulting Agency Comment Spec In Lab Justina Tabor MD CHEMISTRY ORDERABLES [facility] [place] [address] * (ABNORMAL) Troponin (04/08/2023 9:45 PM EDT) Troponin-T, High Sensitivity 100(H) <=14 ng/L [facility] Comment: This patient's troponin T concentration [...] troponin value can be found in the [facility] Laboratory Test Catalog Troponin - [facility] Laboratory Test Catalog Reference: Fourth [place] Definition of Myocardial Infarction. Journal of the [place] [employer] 2018;72:8507-1048 Blood 04/08/2023 9:45 PM EDT 04/08/2023 9:45 PM EDT Narrative Resulting Agency Comment Spec In Lab Robni Alvarado MD CHEMISTRY ORDERABLES [facility] [place] [address] * (ABNORMAL) Troponin (04/08/2023 7:20 PM EDT) Troponin-T, High Sensitivity 28(H) <=14 ng/L [facility] Comment: This patient's troponin T concentration [...] troponin value can be found in the [facility] Laboratory Test Catalog Troponin - [facility] Laboratory Test Catalog Reference: Fourth [place] Definition of Myocardial Infarction. Journal of the [place] [employer] 2018;72:8563-1641 Blood 04/08/2023 7:20 PM EDT 04/08/2023 7:25 PM EDT Narrative Resulting Agency Comment Spec In Lab Robin Alvarado MD CHEMISTRY ORDERABLES Performing Organization Address City/[facility] [place] [address] * EKG 12 Lead (04/08/2023 6:57 PM EDT) Ventricular rate 71 BPM MUSE SYSTEM Atrial Rate 55 BPM MUSE SYSTEM QRS Duration 166 ms MUSE SYSTEM Q-T Interval 504 ms MUSE SYSTEM QTC Calculated (Bezet) 547 ms MUSE SYSTEM Calculated R [place] -69 degrees MUSE SYSTEM Calculated T [place] 65 degrees MUSE SYSTEM INTERPRETATION Ventricular-pa mary rhythm Occasional AV dual-paced complexes and with premature ventricular or aberrantly conducted complexes Abnormal ECG When compared with ECG of 31-MAR-2023 16:23, Electronic ventricular pacemaker has replaced Sinus rhythm Vent. rate has increased BY ??28 BPM Confirmed by MD Sanches Danette ([id number]) on 04/11/2023 8:24:56 AM MUSE SYSTEM 04/08/2023 6:57 PM EDT 04/11/2023 8:24 AM EDT Robin Alvarado MD ECG ORDERABLES Performing Organization Address City/[facility] Co de Phone Number MUSE SYSTEM * ELECTROPHYSIOLOGY PROCEDURE (04/08/2023 3:47 PM EDT) Anatomical Region Laterality Modality Other Narrative 04/08/2023 6:43 PM EDT Table formatting from the original result was not included. DUAL CHAMBER PACEMAKER IMPLANTATION Chief Operating Officer: Robin Alvarado MD Fellow: Ke Trejo MD [...] the entire procedure. LEAD AND GENERATOR DATA: Food Court Team Member Model # Serial # Generator [place] [employer]IC [id number] Atrial Lead [employer] [id number] Ventricular Lead [employer] [id number] PACE/SENSE DATA: Sensed wave (mV) Threshold (V) [...] (cGycm2) 400 CONCLUSIONS: Successful implantation of a [employer] dual chamber pacemaker for symptomatic bradycardia due to sinus node dysfunction and AV block. Restart rivaroxaban anticoagulation in 72 hours. Follow up in EP clinic in 2 weeks. Procedures performed: dual chamber pacemaker implantation (cpt 97200) I have reviewed, edited and approve of the above procedure note. I was present for the entire procedure and I was present for the entire sedation time. Robin Alvarado MD [facility] Cardiac Electrophysiology 04/08/2023 6:38 PM Procedure Note Robin Alvarado MD - 04/08/2023 DUAL CHAMBER PACEMAKER IMPLANTATION Chief Operating Officer: Robin Alvarado MD Fellow: Ke Trejo MD [...] procedure time) and then [facility], and the pocket closed in layers using 2-0, 3-0 and 4-0 absorbablesutures. The skin was closed using a sub-cuticular technique. Steri-stripsand a bio-occlusive dressing were applied to the skin. The patientremained hemodynamically stable, tolerated the procedure well and wastransferred in stable condition. Dr. Alvarado was present for andparticipated in the entire procedure. LEAD AND GENERATOR DATA: Food Court Team Member Model # Serial # Generator [employer] [id number] Atrial Lead [employer] [id number] Ventricular Lead [employer] [id number] PACE/SENSE DATA: Sensed wave (mV) Threshold (V) [...] (cGycm2) 400 CONCLUSIONS: Successful implantation of a [employer] dual chamber pacemaker forsymptomatic bradycardia due to sinus node dysfunction and AV block. Restart rivaroxaban anticoagulation in 72 hours. Follow up in EP clinic in 2 weeks. Procedures performed: dual chamber pacemaker implantation (cpt 98350) I have reviewed, edited and approve of the above procedure note. I waspresent for the entire procedure and I was present for the entire sedationtime. Robin Alvarado MD S Cardiac Electrophysiology 04/08/2023 6:38 PM Robin Alvarado MD EP PROCEDURE ORDERAB LES * Differential, Automated (04/08/2023 1:11 PM EDT) Neutrophil % 51.3 % [facility] Neutrophil Absolute 2.80 1.70 - 6.10 x10(3)/[facility] LABORATORY Lymph % 38.3 % [facility] LABORATORY Lymphocytes Abs 2.1 0.9 - 3.2 x10(3)/[facility] LABORATORY Monocyte % 8.8 % [facility] Monocyte Abs 0.5 0.3 - 0.9 x10(3)/[facility] LABORATORY Eos % 0.9 % [facility] Eosinophils Abs 0.0 0.0 - 0.4 x10(3)/[facility] LABORATORY Basophil % 0.5 % [facility] Baso Absolute 0.0 0.0 - 0.1 x10(3)/[facility] LABORATORY Immature Gran % 0.20 % [facility] Comment: Immature granulocytes(IG's)percentage and absolute count will include metamyelocytes, myelocytes, and promyelocytes. Blood smears from CBCs yielding IG's will be scanned manually for concordance. If this scan disagrees with the automated IG or if promyelocytes are noted, a manual differential will be performed. Immature Gran Absolute 0.01 0.00 - 0.04 x10(3)/[facility] LABORATORY Blood 04/08/2023 1:11 PM EDT 04/08/2023 1:16 PM EDT Narrative Resulting Agency Comment Spec In Lab Meagan AVILA HEMATOLOGY ORDERABL ES Performing Organization Address City/State/[facility] Co de Phone Number [facility] [place] [address] * Hemogram (04/08/2023 1:11 PM EDT) White Blood Cell 5.5 4.0 - 9.5 x10(3)/[facility] LABORATORY Red Blood Cell 4.78 4.00 - 5.21 x10(6)/[facility] LABORATORY Hemoglobin 14.8 11.7 - 15.5 g/dL [facility] Hematocrit 44.0 35.7 - 45.8 % [facility] Mean Cell Volume 92.1 82.6 - 94.4 fL [facility] Mean Cell Hemoglobin 31.0 27.1 - 32.0 pg [facility] Mean Cell Hemoglobin Concentration 33.6 31.7 - 35.0 g/dL [facility] Platelet 186 145 - 357 x10(3)/[facility] LABORATORY RDW Standard Deviation 43.4 37.0 - 46.0 fL [facility] RDW coefficient of variation 12.8 11.5 - 14.1 % [facility] Mean Platelet Volume 10.3 7.6 - 12.9 fL [facility] NRBC% auto 0.0 % [facility] NRBC Absolute 0.000 0.000 - 0.000 x10(3)/[facility] LABORATORY Blood 04/08/2023 1:11 PM EDT 04/08/2023 1:16 PM EDT Narrative Resulting Agency Comment Spec In Lab Meagan AVILA HEMATOLOGY ORDERABL ES [facility] [place] [address] * (ABNORMAL) Basic Metabolic Panel (non-fasting) (04/08/2023 1:11 PM EDT) Glucose 100 65 - 199 mg/dL [facility] Comment:Diabetes: >=200 mg/d L plus symptoms Blood Urea Nitrogen 13 8 - 18 mg/dL [facility] Creatinine 0.69(L) 0.70 - 1.20 mg/dL [facility] Sodium 137 135 - 145 mmol/L [facility] Potassium 4.2 3.5 - 5.0 mmol/L [facility] Comment: Please note: ??Patients with WBC >100,000 may have falsely elevated Potassium levels. ??For accurate Potassium quantification in these patients send serum separator tube (gold top) for subsequent determinations. ??Contact the Clinical Chemistry Laboratory if there are any questions. Chloride 103 98 - 107 mmol/L [facility] Carbon Dioxide 22 22 - 31 mmol/L [facility] Anion Gap 12 5 - 15 mmol/L [facility] Calcium 9.6 8.5 - 10.5 mg/dL [facility] Est Glomerular Filtration Rate 89 >=60 mL/min/1. 73 m?? [facility] Comment: This patient's estimated GFR was [...] In Lab Janett Vidal MD CHEMISTRY ORDERABLES [facility] [place] [address] documented in this encounter Visit Diagnoses Diagnosis [...] induce or maintain moderate sedation per [facility] Moderate Sedation Policy for the duration of the EP procedure., As needed to induce or maintain moderate sedation per [facility] Moderate Sedation Policy for the duration of [...] induce or maintain moderate sedation per [facility] Moderate Sedation Policy for the duration of the EP procedure., As needed to induce or maintain moderate sedation per [facility] Moderate Sedation Policy for the duration of [...] Haro RN) 0933 (Given - Provider: Melba Hrao, MIKE) ferrous sulfate EC (FeroSul) tablet 325 [...] Jeni Sunshine RN) 1619 (Given - Provider: Mleba Haro RN) Continuous Medication Order 04/10/2023 04/11/2023 [...] Routine documented in this encounter Care Teams Weaving Instructor Relationship Specialty Start Date End Date Vicenta Ndiaye APRN [address] [place] [address] PCP - General Family Medicine 03/11/21 documented as of this encounter
--- OUTSIDE RECORDS SUMMARY | 2024-06-09 14:14 | XMS_ITS | Encounter Summary ---
Author [place] [address] Care Team Providers Care Documentation Clerk Name Role Phone Senthil Vicenta ASIM Primary Care Provider [phone] Encounter Details Date Type Department Care Team (Late st Contact Info) Description 02/06/2023 Telephone Cardiology at [address] [phone] Anna Marie Tarango MD [facility] [place] [address] Social History Tobacco Use Types Packs/Day Years [...] 02/06/2023 Referring Provider: Dr. Gabriel Patient Location: [facility] Past Medical History: Atrial fibrillation s/p cardioversion in 2020 HTN Hypothyroidism Presenting Symptoms per OSH: Elena presented to [facility] this AM with dyspnea at [...] personally reviewed EKGs. Anna Marie Tarango MD Stock Cutter Pager [phone] documented in this encounter Plan of Treatment Upcoming Encounters Date Type Department Care Team (Late st Contact Info) Description 07/13/2024 10:00 AM [facility] Hospital Encounter [place] [phone] Arrived documented as of this encounter Visit Diagnoses Not on filedocumented in this encounter Care Teams Documentation Clerk Relationship Specialty Start Date End Date Vicenta Ndiaye APRN [address] [place] [address] PCP - General Family Medicine 03/11/21 documented as of this encounter
--- OUTSIDE RECORDS SUMMARY | 2024-06-09 14:15 | XMS_ITS | Encounter Summary ---
Author Organization [facility] [place] [address] Care Team Providers Care Venture Capital Analyst Name Role Phone Senthil Vicenta DAILEY Primary Care Provider [phone] Encounter Details Date Type Department Care Team (Late st Contact Info) Description 06/11/2021 10:00 AM EDT Office Visit Cardiology at [address] [phone] Robin Alvarado MD [facility] DR ELECTROPHYSIOLOGY [address] Keny Guzman MD [facility] [place] [address] Persistent atrial fibrillation Social History Tobacco Use [...] Follow Up Patient ID Elena Dave 1945 [id number] Elena Dave is following up in EP clinic C/c: AF History Ms. Dave and I met for follow up of her AF. She last met with me and Dr. Cuevas in February2021. At that time, she was in sinus rhythm and had a Holter applied that showed no atrial fibrillation, sinus rhythm with maximum heart rate around 95 bpm and prolonged VA interval. She generally feels OK in sinus [...] the assessment of stroke risk by the [id number] score. We discussed rate versus rhythm control [...] [facility] Hospital Encounter Non-[place] [address] Arrived documented as of this encounter Procedures [...] (Bezet) 421 ms MUSE SYSTEM Calculated R Baxter 13 degrees MUSE SYSTEM Calculated T [place] -22 degrees MUSE SYSTEM INTERPRETATION Atrial fibrillation [...] fibrillation documented in this encounter Care Teams Venture Capital Analyst Relationship Specialty Start Date End Date Vicenta Ndiaye APRN [address] [place] [address] PCP - General Family Medicine 03/11/21 documented as of this encounter
--- OUTSIDE RECORDS SUMMARY | 2024-06-09 14:15 | XMS_ITS | Encounter Summary ---
[place] [address] Care Team Providers Care Beverage Steward Name Role Phone Vicenta Ndiaye APRN Primary Care Provider [phone] Reason for Visit * Auth/Cert Specialty Diagnoses / Procedures Referred By Contac t Referred To Contact Diagnoses atrial fibrillation Procedures PRO CARDIOVERSION ELECTIVE ARRHYTHMIA EXTERNAL CARDIOVERSION-ELECTIVE (WRVU 2.25) Referral ID Status Reason Start Date Expiration Date Visits Re quested Visits Authorized [id number] 1 1 Encounter Details Date Type Department Care Team (Latest Contact Info) Description 07/16/2021 10:23 AM EST - 07/16/2021 1:45 PM EST Hospital Encounter [place] [address] Janett Vidal MD [facility] [place] [address] Persistent atrial fibrillation Discharge Disposition: Home Social [...] the adhesive pads were placed, call the tool repairer bench career professional at . ? We will schedule a follow-up appointment with the tool repairer bench here, or you will be scheduled to [...] Persistent atrial fibrillation ELECTRICAL CARDIOVERSION Attending: Janett Vidla MD Documentation Consultant: Date of Procedure: 07/16/2021 Indication: Atrial fibrillation, [...] AM EST Hospital Encounter Non-[place] [address] Arrived documented as of this encounter Procedures Procedure Name Priority Date/Time Associated Diagnosis Comments EKG 12-LEAD STAT 07/16/2021 12:41 PM EST Persistent atrial fibrillation Cardioversion Elective Arrhythmia External (45192) 07/16/2021 12:12 PM EST Persistent atrial fibrillation [...] (Bezet) 428 ms MUSE SYSTEM Calculated P [place] 33 degrees MUSE SYSTEM Calculated R [place] -4 degrees MUSE SYSTEM Calculated T [place] -28 degrees MUSE SYSTEM INTERPRETATION Sinus bradycardia with 2nd degree A-V block (Mobitz I) Left axis deviation Abnormal ECG When compared with ECG of 16-JUL-2021 09:42, (unconfirmed) 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
--- OUTSIDE RECORDS SUMMARY | 2024-06-09 14:15 | XMS_ITS | Encounter Summary ---
[place] [address] Care Team Providers Care Model Maker Apprentice Name Role Phone Vicenta Ndiaye APRN Primary Care Provider [phone] Reason for Visit * Auth/Cert Specialty Diagnoses / Procedures Referred By Contac t Referred To Contact Diagnoses atrial fibrillation Procedures PRO CARDIOVERSION ELECTIVE ARRHYTHMIA EXTERNAL CARDIOVERSION-ELECTIVE (WRVU 2.25) Referral ID Status Reason Start Date Expiration Date Visits Re quested Visits Authorized [id number] 1 1 Encounter Details Date Type Department Care Team (Late st Contact Info) Description 07/16/2021 12:14 PM EST Anesthesia Event [place] [address] George Craft MD [facility] [place] [address] Richa Sweeney CRNA [facility] [place] [place] [address] Anesthesia Record Procedure Summary Procedure Name Responsible [...] Procedure Summary Date: 07/16/21 Room / Location: [facility] MINOR SURGERY / [facility] MAIN OR Anesthesia Start: 1214 Anesthesia Stop: 1226 Procedure: CARDIOVERSION-ELECTIVE (WRVU 2.25) (N/A ) Diagnosis: Persistent atrial fibrillation (atrial fibrillation) Surgeons: Janett Vidal MD Responsible Provider: George Craft MD Anesthesia Type: MAC ASA Status: 3 All Anesthesia Providers: Anesthesiologist: George Craft MD BROKE HANDLER: Richa Sweeney CRNA Vitals Value Taken Time BP 129/63 07/16/21 1315 Temp 37.6 ??C (99.7 ??F) 07/16/21 1339 Pulse 50 07/16/21 1325 Resp 24 07/16/21 1325 SpO2 94 % 07/16/21 1324 Pain Level 0 07/16/21 1231 Vitals shown include unvalidated device data. Patient Location: PACU/[facility] Level of Consciousness: Awake and Alert Pain [...] and placed in chart. George Craft MD Jewel Oliving Machine Operator Region - Intrathoracic Cardiac Informed Consent: Anesthetic plan and risks discussed with patient. Plan discussed with attending and BROKE HANDLER. Anesthesia Screening documented in this encounter Plan of Treatment Upcoming Encounters Date Type Department Care Team (Late st Contact Info) Description 07/13/2024 10:00 AM EST Hospital Encounter Non-Invasive [place] [phone] Arrived documented as of this encounter Visit [...] mg documented in this encounter Care Teams Model Maker Apprentice Relationship Specialty Start Date End Date Vicenta Ndiaye APRN [address] [place] [address] PCP - General Family Medicine 03/11/21 documented as of this encounter
--- OUTSIDE RECORDS SUMMARY | 2024-06-09 14:15 | XMS_ITS | Encounter Summary ---
[place] [address] Care Team Providers Care Home Staging Specialist Name Role Phone TawannameganDaniella Andrez DAILEY Primary Care Provider Encounter Details Date Type Department Care Team (Late st Contact Info) Description 01/31/2017 Abstract Radiology and Cardiology Results [address] [place] [phone] Nl[facility] Conversion, Results Provider, Social History [...] st Contact Info) Description 07/13/2024 10:00 AM [facility] Hospital Encounter Non-[place]vasive [place] [phone] Arrived documented as of this encounter Procedures [...] on filedocumented in this encounter Care Teams Home Staging Specialist Relationship Specialty Start Date End Date Daniella Denny, ANIMAL FEEDER [address] [place] [address] PCP - General 07/21/10 03/10/21 documented as of this encounter
--- OUTSIDE RECORDS SUMMARY | 2024-06-09 14:15 | XMS_ITS | Encounter Summary ---
Author Organization [facility] [place] [address] Care Team Providers Care Cone Winder Name Role Phone Daniella Denny Andrez DAILEY Primary Care Provider Reason for Visit * Reason Comments Palpitations Encounter Details Date Type Department Care Team (Late st Contact Info) Description 01/10/2012 2:45 PM EDT Office Visit [address] [address] Daniel Sexton MD [facility] [place] [address] Palpitations (Primary Dx) Social History Tobacco Use [...] AM EST Hospital Encounter Non-[place] [address] Arrived documented as of this encounter Procedures [...] Primary documented in this encounter Care Teams Cone Winder Relationship Specialty Start Date End Date Daniella Denny, SANITATION DIRECTOR [address] [place] [address] [address] [place] [address] PCP - General 07/21/10 03/10/21 documented as of this encounter
--- OUTSIDE RECORDS SUMMARY | 2024-06-09 14:15 | XMS_ITS | Encounter Summary ---
[place] [address] Care Team Providers Care Criminal Justice Professor Name Role Phone Barrydinh Daniella Andrez DAILEY Primary Care Provider Encounter Details Date Type Department Care Team (Late st Contact Info) Description 10/11/2013 Abstract Radiology and Cardiology Results [address] [place] [phone] [facility] Conversion, Results Provider, Social History [...] AM EST Hospital Encounter Non-[place] [phone] Arrived documented as of this encounter Procedures [...] H) <=99.0 mg/dL [facility] CONVERSION HDL Cholesterol 56(Supervisor Tunnel Heading al Lab) 40 - 60 mg/dL [facility] CONVERSION 10/11/2013 7:48 AM EST Results Provider Nlh Conversion MD ARIANA CALIX ORDERABLES [facility] CONVERSION * (ABNORMAL) CRP, cardiac risk (HS CRP) (10/11/2013 7:48 AM EST) C-Reactive Protein High Sensitivity 1.6(Exter nal Lab) 0.0 - 3.0 mg/L [facility] CONVERSION 10/11/2013 7:48 AM EST Results Provider Nlh Conversion CHEMMathew CALIX ORDERABLES Performing Organization Address City/[facility] Co de Phone Number [facility] CONVERSION * (ABNORMAL) Comprehensive metabolic panel (non-fasting) (10/11/2013 7:48 AM EST) Sodium 142(Exter nal Lab) 137 - 145 mmol/L [facility] CONVERSION Chloride 104(Exter nal Lab) 98 - 107 mmol/L [facility] CONVERSION Glucose 93(Supervisor Tunnel Heading al Lab) 65 - 99 mg/dL [facility] CONVERSION Alkaline Phosphatase 68(Supervisor Tunnel Heading al Lab) 38 - 126 U/L [facility] CONVERSION eGFR 60(Supervisor Tunnel Heading al Lab) >=60 mL/min/1. 73m2 [facility] CONVERSION Est Glomerular Filtration Rate 60(Supervisor Tunnel Heading al Lab) >=60 mL/min/1. 73m2 [facility] CONVERSION Alanine Aminotransferase 42(Supervisor Tunnel Heading al Lab) 13 - 69 U/L [facility] CONVERSION Aspartate Aminotransferase 29(Supervisor Tunnel Heading al Lab) 15 - 46 U/L [facility] CONVERSION Carbon Dioxide 27(Supervisor Tunnel Heading al Lab) 22.0 - 30.0 mmol/L [facility] CONVERSION Blood Urea Nitrogen 17(Supervisor Tunnel Heading al Lab) 7 - 20 mg/dL NL[facility] [...] on filedocumented in this encounter Care Teams Criminal Justice Professor Relationship Specialty Start Date End Date Daniella Denny, ASIM [address] [facility] [address] [place] [address] PCP - General 07/21/10 03/10/21 documented as of this encounter
--- OUTSIDE RECORDS SUMMARY | 2024-06-09 14:15 | XMS_ITS | Encounter Summary ---
[place] [address] Care Team Providers Care Crop Or Grain Farmworker Name Role Phone Daniella Denny POWERHOUSE OILER Primary Care Provider Encounter Details Date Type Department Care Team (Late st Contact Info) Description 06/21/[address] [phone] Daniella Denny, POWERHOUSE OILER [address] [address] Social History Tobacco Use Types Packs/Day Years [...] [facility] Hospital Encounter Non-Invasive [place] [address] Arrived documented as of this encounter Procedures [...] on filedocumented in this encounter Care Teams Crop Or Grain Farmworker Relationship Specialty Start Date End Date Daniella Denny APRN [address] [place] [address] [address] [place] [address] PCP - General 07/21/10 03/10/21 documented as of this encounter
--- OUTSIDE RECORDS SUMMARY | 2024-06-09 14:15 | XMS_ITS | Encounter Summary ---
[place] [address] Care Team Providers Care Damage Adjuster Name Role Phone Vicenta Ndiaye APRN Primary Care Provider [phone] Encounter Details Date Type Department Care Team (Late st Contact Info) Description 07/15/2021 Telephone Cardiology at [address] [phone] Autumn Akbar RN Social History [...] to procedure. NPO after midnight. Understands that dedicated local truck driver is needed to transport them upon discharge. documented in this encounter Plan of Treatment Upcoming Encounters Date Type Department Care Team (Late st Contact Info) Description 07/13/2024 10:00 AM EST Hospital Encounter Non-Invasive [place] [address] Arrived documented as of this encounter Visit Diagnoses Not on filedocumented in this encounter Care Teams Damage Adjuster Relationship Specialty Start Date End Date Vicenta Ndiaye APRN [address] [place] [address] PCP - General Family Medicine 03/11/21 documented as of this encounter
--- OUTSIDE RECORDS SUMMARY | 2024-06-09 14:15 | XMS_ITS | Encounter Summary ---
[place] [address] Care Team Providers Care Supervisor Scrap Preparation Name Role Phone Barrydinh Daniella Andrez DAILEY Primary Care Provider Encounter Details Date Type Department Care Team (Late st Contact Info) Description 04/08/2014 Abstract Radiology and Cardiology Results [address] [place] [phone] [facility] Conversion, Results Provider, Social History Tobacco [...] AM EST Hospital Encounter Non-Invasive [place] [phone] Arrived documented as of this encounter Procedures [...] - 107 mmol/L [facility] CONVERSION Alkaline Phosphatase 63(Patient Navigator al Lab) 38 - 126 U/L [facility] CONVERSION Est Glomerular Filtration Rate 60(Patient Navigator al Lab) >=60 mL/min/1. 73m2 NL[facility] CONVERSION eGFR 60(Patient Navigator al Lab) >=60 mL/min/1. 73m2 [facility] CONVERSION Alanine Aminotransferase 39(Patient Navigator al Lab) 13 - 69 U/L [facility] CONVERSION Aspartate Aminotransferase 28(Patient Navigator al Lab) 15 - 46 U/L [facility] CONVERSION Carbon Dioxide 27(Patient Navigator al Lab) 22.0 - 30.0 mmol/L [facility] CONVERSION Blood Urea Nitrogen 19(Patient Navigator al Lab) 7 - 20 mg/dL NLH [...] filedocumented in this encounter Care Teams Supervisor Scrap Preparation Relationship Specialty Start Date End Date Daniella Denny, ASIM [address] [facility] [address] [place] [address] PCP - General 07/21/10 03/10/21 documented as of this encounter
--- OUTSIDE RECORDS SUMMARY | 2024-06-09 14:15 | XMS_ITS | Encounter Summary ---
[place] [address] Care Team Providers Care Proposal Analyst Name Role Phone TawannameganDaniella Andrez DAILEY Primary Care Provider Encounter Details Date Type Department Care Team (Late st Contact Info) Description 01/08/2014 Abstract Radiology and Cardiology Results [address] [place] [phone] Nl Conversion, Results Provider, Social History [...] AM EST Hospital Encounter Non-Invasive [place] [phone] Arrived documented as of this encounter Procedures Procedure Name Priority Date/Time Associated Diagnosis Comments HEPATIC FUNCTION PANEL Routine 01/08/2014 7:32 AM EDT LIPID PANEL (REFLEX DIRECT LDL) Routine 01/08/2014 7:32 AM EDT documented in this encounter Results * (ABNORMAL) Hepatic Function Panel (01/08/2014 7:32 AM EDT) Alkaline Phosphatase 68(Tankage Grinder Operator al Lab) 38 - 126 U/L [facility] CONVERSION Alanine Aminotransferase 35(Tankage Grinder Operator al Lab) 13 - 69 U/L [facility] CONVERSION Aspartate Aminotransferase 26(Tankage Grinder Operator al Lab) 15 - 46 U/L [...] Lab) <=99.0 mg/dL [facility] CONVERSION HDL Cholesterol 56(Tankage Grinder Operator al Lab) 40 - 60 mg/dL [facility] CONVERSION 01/08/2014 7:32 AM EDT Results Provider Nlh Conversion MD ARIANA CALIX ORDERABLES [facility] CONVERSION documented in this encounter Visit Diagnoses Not on filedocumented in this encounter Care Teams Proposal Analyst Relationship Specialty Start Date End Date Daniella Denny, RN [facility] [address] [place] [address] PCP - General 07/21/10 03/10/21 documented as of this encounter
--- OUTSIDE RECORDS SUMMARY | 2024-06-09 14:15 | XMS_ITS | Encounter Summary ---
[place] [address] Care Team Providers Care Gas System Operator Name Role Phone Barrydinh Daniella Andrez DAILEY Primary Care Provider Encounter Details Date Type Department Care Team (Late st Contact Info) Description 11/18/2014 Abstract Radiology and Cardiology Results [address] [place] [phone] [facility] Conversion, Results Provider, Social History Tobacco [...] AM EST Hospital Encounter Non-[place] [phone] Arrived documented as of this encounter Procedures [...] 98 - 107 mmol/L [facility] CONVERSION Glucose 96(Pipe Insulator Helper al Lab) 65 - 99 mg/dL [facility] CONVERSION Alkaline Phosphatase 60(Pipe Insulator Helper al Lab) 38 - 126 U/L [facility] CONVERSION Est Glomerular Filtration Rate 60(Pipe Insulator Helper al Lab) >=60 mL/min/1. 73m2 [facility] CONVERSION eGFR 60(Pipe Insulator Helper al Lab) >=60 mL/min/1. 73m2 [facility] CONVERSION Alanine Aminotransferase 36(Pipe Insulator Helper al Lab) 13 - 69 U/L [facility] CONVERSION Aspartate Aminotransferase 28(Pipe Insulator Helper al Lab) 15 - 46 U/L [facility] CONVERSION Carbon Dioxide 27(Pipe Insulator Helper al Lab) 22.0 - 30.0 mmol/L [facility] CONVERSION Blood Urea Nitrogen 18(Pipe Insulator Helper al Lab) 7 - 20 mg/dL NLH [...] Hemoglobin A1c (11/18/2014 8:04 AM EDT) Pathologist [facility] Hemoglobin A1c 5.8(ExtH) 4.3 - 5.6 % NL[facility] CONVERSION Estimated Average Glucose 120(Pipe Insulator Helper al Lab) mg/dL [facility] CONVERSION 11/18/2014 8:04 AM EDT Results Provider Nlh Conversion MD ARIANA CALIX ORDERABLES NL[facility] CONVERSION * (ABNORMAL) CBC (with Diff) (11/18/2014 8:04 AM EDT) Pathologist [facility] Platelet 197(Exter nal Lab) 140 - 440 thou/mm3 NLH CONVERSION Mean Cell Volume 91(Pipe Insulator Helper al Lab) 81 - 97 fl [facility] CONVERSION Neutrophil % 47.8(Exte rnal Lab) % [facility] CONVERSION Lymph % 42.9(Exte rnal Lab) % [facility] CONVERSION Hematocrit 41(Pipe Insulator Helper al Lab) 37 - 47 % NL[facility] CONVERSION Mean Cell Hemoglobin Concentration 33(Pipe Insulator Helper al Lab) 32 - 36 % NL[facility] CONVERSION Mean Cell Hemoglobin 30(Pipe Insulator Helper al Lab) 27 - 32 pg [facility] CONVERSION Hemoglobin 13.5(Exte rnal Lab) 12.0 - 16.0 gm/dL NL[facility] CONVERSION RDW coefficient of variation 13(Pipe Insulator Helper al Lab) 11.5 - 15.5 % NLH [...] nal Lab) mg/dl [facility] CONVERSION Albumin, Urine 8.4(Pipe Insulator Helper al Lab) mg/L [facility] CONVERSION 11/18/2014 8:04 AM EDT Results Provider Nlh Conversion URINE ORDERABLES [facility] CONVERSION * (ABNORMAL) Lipid Panel (Reflex Direct LDL) (11/18/2014 8:04 AM EDT) LDL Cholesterol 76(Pipe Insulator Helper al Lab) <=99 mg/dL [facility] CONVERSION HDL Cholesterol 57(Pipe Insulator Helper al Lab) >=40 mg/dL [facility] CONVERSION Cholesterol/HDL [...] on filedocumented in this encounter Care Teams Gas System Operator Relationship Specialty Start Date End Date Daniella Denny APRN [address] [place] [address] [address] [place] [address] PCP - General 07/21/10 03/10/21 documented as of this encounter
--- OUTSIDE RECORDS SUMMARY | 2024-06-09 14:15 | XMS_ITS | Encounter Summary ---
Author Organization [facility] [place] [address] Care Team Providers Care Asp Web Developer Name Role Phone Vicenta Ndiaye APRN Primary Care Provider [phone] Reason for Visit * Auth/Cert Specialty Diagnoses / Procedures Referred By Contac t Referred To Contact Diagnoses atrial fibrillation Procedures PRO CARDIOVERSION ELECTIVE ARRHYTHMIA EXTERNAL CARDIOVERSION-ELECTIVE (WRVU 2.25) Referral ID Status Reason Start Date Expiration Date Visits Re quested Visits Authorized [id number] 1 1 Encounter Details Date Type Department Care Team (Late st Contact Info) Description 07/16/2021 10:00 AM EST Office Visit Cardiology at [address] [address] Meagan Gonzalez PA [facility] [place] [address] Persistent atrial fibrillation Social History Tobacco Use [...] History and Physical Subjective: Patient ID: Elena Dvae is a 75 y.o. female. CC: Presents [...] in the last 3 weeks). Originally from [place]. 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 Lives in [place], [place] with her ,Jaime. Patient Active Problem [...] contact EP with any further questions (pager [phone]). MARGARITA Saul Pager: [phone] documented in this encounter Plan of Treatment Upcoming Encounters Date Type Department Care Team (Late st Contact Info) Description 07/13/2024 10:00 AM EST Hospital Encounter Non-[place] [address] Arrived documented as of this [...] (Bezet) 411 ms MUSE SYSTEM Calculated R [place] 17 degrees MUSE SYSTEM Calculated T [place] -48 degrees MUSE SYSTEM INTERPRETATION Atrial fibrillation Low voltage QRS Cannot rule out Anterior infarct (cited on or before 16-JUL-2021) Abnormal ECG When compared with ECG of 11-JUN-2021 11:12, Nonspecific T wave abnormality now evident in Anterior leads Confirmed by MD AGRAWAL ARMIN ([id number]) on 07/16/2021 2:49:15 PM MUSE SYSTEM 07/16/2021 9:42 AM EST 07/16/2021 2:49 PM EST Naveen Diaz MD ECG ORDERABLES [employer] SYSTEM documented in this encounter Visit Diagnoses Diagnosis Persistent atrial fibrillation Atrial fibrillation documented in this encounter Care Teams Asp Web Developer Relationship Specialty Start Date End Date Vicenta Ndiaye APRN [address] [place] [address] PCP - General Family Medicine 03/11/21 documented as of this encounter
--- OUTSIDE RECORDS SUMMARY | 2024-06-09 14:15 | XMS_ITS | Encounter Summary ---
[place] [address] Care Team Providers Care Bark Skinner Name Role Phone Daniella Denny Andrez DAILEY Primary Care Provider Encounter Details Date Type Department Care Team (Late st Contact Info) Description 10/05/2012 Abstract Radiology and Cardiology Results [address] [place] [phone] Nlh Conversion, Results Provider, Social History [...] AM EST Hospital Encounter Non-Invasive [place] [phone] Arrived documented as of this encounter Procedures Procedure Name Priority Date/Time Associated Diagnosis Comments VITAMIN D, 25-HYDROXY Routine 10/05/2012 7:25 AM EST documented in this encounter Results * (ABNORMAL) Vitamin D, 25-Hydroxy (10/05/2012 7:25 AM EST) Vit D, 25-Hydroxy < 4(Externa l Lab) Not established ng/mL NLH CONVERSION Vit D, 25-Hydroxy 38(Roller Skates Assembler al Lab) 30 - 100 ng/mL NLH CONVERSION Vit D, 25-Hydroxy 38(Roller Skates Assembler al Lab) Not established ng/mL NLH CONVERSION 10/05/2012 7:25 AM EST Results Provider Nlh Conversion MD ARIANA CALIX ORDERABLES NLH CONVERSION documented in this encounter Visit Diagnoses Not on filedocumented in this encounter Care Teams Bark Skinner Relationship Specialty Start Date End Date Daniella Denny, COMMUNITY SERVICE OFFICER COORDINATOR [address] [place] [address] [address] [place] [id number] PCP - General 07/21/10 03/10/21 documented as of this encounter
--- OUTSIDE RECORDS SUMMARY | 2024-06-09 14:15 | XMS_ITS | Encounter Summary ---
[place] [address] Care Team Providers Care Fabric Lay Out Worker Name Role Phone TawannameganDaniella Andrez DAILEY Primary Care Provider Encounter Details Date Type Department Care Team (Late st Contact Info) Description 07/23/2008 Abstract Radiology and Cardiology Results [address] [place] [phone] Nlh Conversion, Results Provider, Social History [...] AM EST Hospital Encounter Non-Invasive [place] [phone] Arrived documented as of this encounter Procedures [...] on filedocumented in this encounter Care Teams Fabric Lay Out Worker Relationship Specialty Start Date End Date Daniella Denny, FIELD CONTACT TECHNICIAN [address] [facility] [address] [place] [address] PCP - General 07/21/10 03/10/21 documented as of this encounter
--- OUTSIDE RECORDS SUMMARY | 2024-06-09 14:15 | XMS_ITS | Encounter Summary ---
[place] [address] Care Team Providers Care Biophysics Professor Name Role Phone Daniella Denny GRANTS AND CONTRACTS ASSISTANT Primary Care Provider Encounter Details Date Type Department Care Team (Late st Contact Info) Description 05/17/[address] [phone] Daniella Denny, GRANTS AND CONTRACTS ASSISTANT [address] [address] Social History Tobacco Use Types Packs/Day Years Used Date Smoking Tobacco: Never Assessed Sex and Gender Information Value Date Recorded Sex Assigned at Not on file Gender Identity Not on file Sexual Orientation Not on file documented as of this encounter Plan of Treatment Upcoming Encounters Date Type Department Care Team (Late st Contact Info) Description 07/13/2024 10:00 AM [facility] Hospital Encounter Non-[place] [address] Arrived documented as of this encounter Procedures [...] on filedocumented in this encounter Care Teams Biophysics Professor Relationship Specialty Start Date End Date Daniella Denny APRN [address] [place] [address] [address] [place] [address] PCP - General 07/21/10 03/10/21 documented as of this encounter
--- OUTSIDE RECORDS SUMMARY | 2024-06-09 14:15 | XMS_ITS | Encounter Summary ---
Author Organization [facility] Address [facility] [place] [address] Care Team Providers Care Rn Sane Name Role Phone Senthil Vicenta DAILEY Primary Care Provider [phone] Encounter Details Date Type Department Care Team (Latest Contact Info) Description 03/11/2021 3:27 PM EDT - 03/11/2021 11:59 PM EDT Hospital Encounter Non-[place] [address] Robin Alvarado MD [facility] [place] [address] Atrial fibrillation, unspecified type Discharge Disposition: Home [...] AM EST Hospital Encounter Non-[place] [address] Arrived documented as of this encounter Procedures Procedure Name Priority Date/Time Associated Diagnosis Comments HOLTER MONITOR 48 HOUR Routine 03/11/2021 3:51 PM EDT Atrial fibrillation, unspecified type documented in this encounter Results * Holter Monitor 48hr (03/11/2021 3:51 PM EDT) Hookup Date 20210311 HEARTLAB SYSTEM Hookup Time [id number] HEARTLAB SYSTEM Acquisition Duration 518267 S HEARTLAB SYSTEM #QRS COMPLEXES [id number] HEART LAB SYSTEM # OF VENTRICULAR ECTOPICS [...] HEAR TLAB SYSTEM Max. Heart Rate Time/Date [id number] HEARTLAB SYSTEM Min. Heart Rate Time/Date [id number] HEARTLAB SYSTEM INTERPRETATION 03/18/2021 __ Ashley Cabrera [...] type documented in this encounter Care Teams Rn Sane Relationship Specialty Start Date End Date Vicenta Ndiaye APRN [address] [place] [address] PCP - General Family Medicine 03/11/21 documented as of this encounter
--- OUTSIDE RECORDS SUMMARY | 2024-06-09 14:15 | XMS_ITS | Encounter Summary ---
[place] [address] Care Team Providers Care Gunner Mate Name Role Phone Vicenta Ndiaye ASIM Primary Care Provider [phone] Encounter Details Date Type Department Care Team (Late st Contact Info) Description 03/24/2021 Notes Only [place] [phone] Lizbeth Cuevas MD [facility] [place] [place] [address] Social History Tobacco Use Types Packs/Day Years [...] AM EST Hospital Encounter Non-[place] [address] Arrived documented as of this encounter Visit Diagnoses Not on filedocumented in this encounter Care Teams Gunner Mate Relationship Specialty Start Date End Date Vicenta Ndiaye APRN [address] [place] [address] PCP - General Family Medicine 03/11/21 documented as of this encounter
--- OUTSIDE RECORDS SUMMARY | 2024-06-09 14:15 | XMS_ITS | Encounter Summary ---
[place] [address] Care Team Providers Care Asset Protection Specialist Name Role Phone Vicenta Ndiaye APRN Primary Care Provider [phone] Encounter Details Date Type Department Care Team (Late st Contact Info) Description 07/20/2021 Orders Only Cardiology at [address] [phone] Eloise Jin, RN Social History Tobacco Use [...] AM EST Hospital Encounter Non-[place] [address] Arrived documented as of this encounter Visit Diagnoses Not on filedocumented in this encounter Care Teams Asset Protection Specialist Relationship Specialty Start Date End Date Vicenta Ndiaye APRN [address] [place] [address] PCP - General Family Medicine 03/11/21 documented as of this encounter
--- OUTSIDE RECORDS SUMMARY | 2024-06-09 14:15 | XMS_ITS ---
Author Organization Unknown Address [address] [place] [phone] Phone Care Team Providers Care Straw Hat Brim Raiser Operator Name Role Phone SHAHIDA Hobbs Attending Unavailable Results MM SCREENING BILAT MAMMO W T STEPHY Epstein CAD - Completed: 10/03/2023 13:47 LOINC: [place], [place] [address] PACS HAND MOLD MAKER REPORT Patient Name: GIVOANNI REDDY MRN: Sex: : Age: [id number] F 1945 78 Account: Accession: Admit: StayType: [id number] O/P Ordered: Order ID: Submitted: Ordering Provider: 10/03/2023 13:27 [id number] CALLIE COHEN Completed: Technologist: Resulted: 10/03/2023 13:47 [...] em Smoking History Never smoker (Never Smoked) [id number] SNOMED CT Sex Female Hospital Discharge Instructions [...] Code Code Sys tem Screening mammography 10/03/2023 [id number] Mobiscope -CT Personal Care Team Section Performer Name Performer Role Active Date Inactive Da te
--- OUTSIDE RECORDS SUMMARY | 2024-06-09 14:15 | XMS_ITS | Encounter Summary ---
[place] [address] Care Team Providers Care Field Radio Technician Name Role Phone Daniella Denny APRN Primary Care Provider Encounter Details Date Type Department Care Team (Late st Contact Info) Description 03/27/2013 Abstract Radiology and Cardiology Results [address] [place] [phone] [facility] Conversion, Results Provider, Social History Tobacco Use [...] AM EST Hospital Encounter Non-Invasive [place] [phone] Arrived documented as of this encounter Procedures [...] 440 thou/mm3 NLH CONVERSION Mean Cell Volume 89(Online Content Coordinator al Lab) 81 - 97 fl NLH CONVERSION Neutrophil % 47.5(Exte rnal Lab) 32.0 - 70.0 % NLH CONVERSION Lymph % 42.3(ExtH ) 22.0 - 40.0 % NLH CONVERSION Hematocrit 39(Online Content Coordinator al Lab) 37 - 47 % NLH CONVERSION Mean Cell Hemoglobin Concentration 34(Online Content Coordinator al Lab) 32 - 36 % NLH CONVERSION Mean Cell Hemoglobin 30(Online Content Coordinator al Lab) 27 - 32 pg NLH CONVERSION Hemoglobin 13.1(Exte rnal Lab) 12.0 - 16.0 gm/dL NLH CONVERSION RDW coefficient of variation 13(Online Content Coordinator al Lab) 11.5 - 15.5 % NLH [...] Address City/[facility] Co de Phone Number NLH CONVERSION * (ABNORMAL) Lipid Panel (Reflex Direct LDL) (03/27/2013 7:29 AM EDT) Cholesterol, Total 221(ExtH) <=199 mg/dL NLH CONVERSION Triglyceride 215(ExtH) <=149 mg/dL NLH CONVERSION LDL Cholesterol 121(ExtH) <=99.0 mg/dL NLH CONVERSION HDL Cholesterol 57(Online Content Coordinator al Lab) 40 - 60 mg/dL NLH CONVERSION 03/27/2013 7:29 AM EDT Results Provider Nlh Conversion MD ARIANA CALIX ORDERABLES Performing Organization Address [facility] Co de Phone Number [...] Address City/[facility] Co de Phone Number [...] A1c (03/27/2013 7:29 AM EDT) Hemoglobin A1c 5.4(Online Content Coordinator al Lab) <=6.0 % NLH CONVERSION 03/27/2013 [...] 98 - 107 mmol/L NLH CONVERSION Glucose 92(Online Content Coordinator al Lab) 65 - 99 mg/dL NLH CONVERSION Alkaline Phosphatase 65(Online Content Coordinator al Lab) 38 - 126 U/L NLH CONVERSION eGFR 60(Online Content Coordinator al Lab) >=60 mL/min/1. 73m2 NLH CONVERSION Est Glomerular Filtration Rate 60(Online Content Coordinator al Lab) >=60 mL/min/1. 73m2 NLH CONVERSION Alanine Aminotransferase 35(Online Content Coordinator al Lab) 13 - 69 U/L NLH CONVERSION Aspartate Aminotransferase 28(Online Content Coordinator al Lab) 15 - 46 U/L NLH CONVERSION Carbon Dioxide 25(Online Content Coordinator al Lab) 22.0 - 30.0 mmol/L NLH CONVERSION Blood Urea Nitrogen 18(Online Content Coordinator al Lab) 7 - 20 mg/dL NLH [...] on filedocumented in this encounter Care Teams Field Radio Technician Relationship Specialty Start Date End Date Daniella Denny, ASIM [address] [place] [address] 107 [place] [address] PCP - General 07/21/10 03/10/21 documented as of this encounter
--- OUTSIDE RECORDS SUMMARY | 2024-06-09 14:15 | XMS_ITS | Encounter Summary ---
Author Organization [facility] [address] Care Team Providers Care Senior Sales Director Name Role Phone Vicenta Ndiaye APRN Primary Care Provider [phone] Reason for Visit * Consultation (Routine) - Closed Specialty Diagnoses / Procedures Referred By Contact Referred To Contact Electrophysiology / Cardiology Diagnoses A-fib Afib Procedures Afib Jere Mackenzie MD [address] [place] [address] [place] [address] [facility] Cardiology [address] [place] [phone] Referral ID Status Reason Start Date Expiration Date V isits Requested Visits Authorized [id number] Closed Consult, Test & Treat 02/04/2021 02/04/2022 1 1 Encounter Details Date Type Department Care Team (Late st Contact Info) Description 03/11/2021 2:00 PM EDT Office Visit Cardiology at [address] [phone] Robin Alvarado MD [facility] [place] [address] Lizbeth Cuevas MD [facility] [place] [address] Atrial fibrillation, unspecified type Social [...] 3. Call us with any symptoms 4. [phone], option #3. documented in this encounter Progress Notes * Lizbeth Cuevas MD - 03/11/2021 2:00 PM EDT [facility] ELECTROPHYSIOLOGY CLINIC VISIT NOTE Referring Provider: Daniella Denny Aprn [address] [place] [address] Primary Care Provider: Vicenta Ndiaye APRN [address] [place] [address] Patient Identification: Elena Dave is a 75 y.o. female here to discuss management options for her atrial fibrillation. Referring: Jere Mackenzie MD History of Present Illness: Ms. aDve is a 75 y.o. female with a history of HTN, hypothyroidism, and paroxysmal AF onXarelto ([id number] 4) who presents for evaluation of management [...] shows a sinus rhythm at 49 bpm, KS interval 292 ms and narrow QRS with [...] was 115 bpm. ECG with NSR but KS ~350 ms in Sep 2020 and January [...] bradycardia discussion. 2) Anti-coagulation: The patient's current [id number] risk factors include Age 65(1), Age 75(2) andFemale sex(1) HTN for an annual risk of TIA/stroke/systemic thromboembolism of 4.6%. She is anti-coagulated with Rivaroxaban. Her anti- coagulation will be continued. 3) sinus bradycardia and prolonged KS interval: Although most of the patient's symptoms are consistent with atrial fibrillation, at times she does have dyspnea on exertion that is not associated withpalpitations. It is possible that this is secondary to being on metoprolol versus underlying conduction disease. Given her underlying sinus bradycardia and long KS interval, I am hesitant to increaseher metoprolol. [...] agreement. ? Dr. Robin Alvarado, electrophysiology attending ([id number]) documented in this encounter Plan of Treatment Upcoming Encounters Date Type Department Care Team (Late st Contact Info) Description 07/13/2024 10:00 AM EST Hospital Encounter Non-Invasive [place] [address] Arrived documented as of this encounter Procedures Procedure Name Priority Date/Time Associated Diagnosis Comments EKG 12-LEAD Routine 03/11/2021 2:13 PM EDT Atrial fibrillation, unspecified type documented in this encounter Results * Holter Monitor 48hr (03/11/2021 3:51 PM EDT) Hookup Date 20210311 HEARTLAB SYSTEM Hookup Time [id number] HEARTLAB SYSTEM Acquisition Duration 421554 S HEARTLAB SYSTEM #QRS COMPLEXES 151683 HEART LAB SYSTEM # OF VENTRICULAR ECTOPICS [...] HEAR TLAB SYSTEM Max. Heart Rate Time/Date [id number] HEARTLAB SYSTEM Min. Heart Rate Time/Date [id number] HEARTLAB SYSTEM INTERPRETATION 03/18/2021 __ Ashley Cabrera [...] (Bezet) 415 ms MUSE SYSTEM Calculated P [place] 23 degrees MUSE SYSTEM Calculated R [place] 4 degrees MUSE SYSTEM Calculated T [place] -15 degrees MUSE SYSTEM INTERPRETATION Sinus bradycardia [...] type documented in this encounter Care Teams Senior Sales Director Relationship Specialty Start Date End Date Vicenta Ndiaye APRN [address] [place] [address] PCP - General Family Medicine 03/11/21 documented as of this encounter
--- OUTSIDE RECORDS SUMMARY | 2024-06-09 14:15 | XMS_ITS | Encounter Summary ---
[place] [address] Care Team Providers Care Manager Rfid Name Role Phone Vicenta Ndiaye APRN Primary Care Provider [phone] Reason for Visit * Auth/Cert Specialty Diagnoses / Procedures Referred By Contac t Referred To Contact Diagnoses atrial fibrillation Procedures PRO CARDIOVERSION ELECTIVE ARRHYTHMIA EXTERNAL CARDIOVERSION-ELECTIVE (WRVU 2.25) Referral ID Status Reason Start Date Expiration Date Visits Re quested Visits Authorized [id number] 1 1 Encounter Details Date Type Department Care Team (Latest Contact Info) Description 07/16/2021 9:10 AM EST Laboratory Appointment Lab [address] [place] [phone] Persistent atrial fibrillation Social History Tobacco Use [...] AM EST Hospital Encounter Non-[place] [phone] Arrived documented as of this encounter Procedures Procedure Name Priority Date/Time Associated Diagnosis Comments HC MAGNESIUM, SERUM Routine 07/16/2021 9:25 AM EST Persistent atrial fibrillation BASIC METABOLIC PANEL Routine 07/16/2021 9:25 AM EST Persistent atrial fibrillation documented in this encounter Results * Basic Metabolic Panel (non-fasting) (07/16/2021 9:25 AM EST) Glucose 118 65 - 199 mg/dL [facility] Comment:Diabetes: >=200 mg/d L plus symptoms Blood Urea Nitrogen 16 8 - 18 mg/dL [facility] Creatinine 0.93 0.70 - 1.20 mg/dL [facility] Sodium 140 135 - 145 mmol/L [facility] Potassium 4.5 3.5 - 5.0 mmol/L [facility] Comment: Please note: ??Patients with WBC >100,000 may have falsely elevated Potassium levels. ??For accurate Potassium quantification in these patients send serum separator tube (gold top) for subsequent determinations. ??Contact the Clinical Chemistry Laboratory if there are any questions. Chloride 105 98 - 107 mmol/L [facility] Carbon Dioxide 25 22 - 31 mmol/L [facility] Anion Gap 10 5 - 15 mmol/L [facility] Calcium 9.7 8.5 - 10.5 mg/dL [facility] Est Glomerular Filtration Rate 60 >=60 mL/min/1. 73 m?? [facility] Comment: This patient? s estimated [...] Diaz MD CHEMISTRY ORDERABLES Performing Organization Address City/[facility]/ZIP Co de Phone Number [facility] [place] [address] * Magnesium (07/16/2021 9:25 AM EST) Magnesium 0.88 0.69 - 1.07 mmol/L [facility] Blood 07/16/2021 9:25 AM EST 07/16/2021 9:50 AM EST Narrative Resulting Agency Comment Spec In Lab Naveen Diaz MD CHEMISTRY ORDERABLES Performing Organization Address [facility] Co de Phone Number [facility] [place] [address] documented in this encounter Visit Diagnoses Diagnosis Persistent atrial fibrillation Atrial fibrillation documented in this encounter Care Teams Manager Rfid Relationship Specialty Start Date End Date Vicenta Ndiaye APRN [address] [place] [address] PCP - General Family Medicine 03/11/21 documented as of this encounter
--- OUTSIDE RECORDS SUMMARY | 2024-06-09 14:15 | XMS_ITS | Encounter Summary ---
[place] [address] Care Team Providers Care Health And Fitness Instructor Name Role Phone Daniella Denny Andrez DAILEY Primary Care Provider Encounter Details Date Type Department Care Team (Late st Contact Info) Description 11/17/2011 Abstract Radiology and Cardiology Results [address] [place] [phone] Nl Conversion, Results Provider, Social History [...] AM EST Hospital Encounter Non-[place] [phone] Arrived documented as of this encounter Procedures [...] filedocumented in this encounter Care Teams Health And Fitness Instructor Relationship Specialty Start Date End Date Daniella Denny, ASIM [address] [place] [address] [address] [place] [address] PCP - General 07/21/10 03/10/21 documented as of this encounter
--- OUTSIDE RECORDS SUMMARY | 2024-06-09 14:15 | XMS_ITS | Encounter Summary ---
Author Organization [facility] Address [facility] [place] [address] Care Team Providers Care Manager Front Name Role Phone Senthil Vicenta ASIM Primary Care Provider [phone] Encounter Details Date Type Department Care Team (Late st Contact Info) Description 07/22/2021 10:20 AM EST Office Visit Cardiology at [address] [address] Robin Alvarado MD [facility] [place] [address] Persistent atrial fibrillation; Hypothyroidism, unspecified type Social [...] Follow Up Patient ID Elena Dave [id number] Elena Dave is following up in EP [...] reviewed the ECG: sinus bradycardia with prolonged DC interval and PAC and occasional junctional escape [...] AM EST Hospital Encounter Non-Invasive [place] [address] Arrived Scheduled Orders Name Type Priority Associated Diagnoses Orde r Schedule EKG 12 Lead ECG Routine Persistent atrial fibrillation Expected: 07/22/2021, Expires: 01/21/2022 documented as of this encounter Procedures Procedure Name Priority Date/Time Associated Diagnosis Comments HC VENIPUNCTURE Routine 07/22/2021 10:59 AM EST Persistent atrial fibrillation Hypothyroidism, unspecified type EKG 12-LEAD Routine 07/22/2021 10:22 AM EST documented in this encounter Results * TSH [place] (07/22/2021 10:59 AM EST) Thyroid Stimulating Hormone 2.20 0.27 - 4.20 mcIU/mL [facility] Comment: Reference Interval (mcIU/mL): Females: ??First Trimester: 0.23-3.88 ??Second Trimester: 0.22-3.90 ??Third Trimester: 0.44-4.66 Blood 07/22/2021 10:5 9 AM EST 07/22/2021 11:10 AM EST Narrative Resulting Agency Comment Spec In Lab Robin Alvarado MD CHEMISTRY ORDERABLES [facility] [place] [address] * EKG 12 Lead (07/22/2021 10:22 AM EST) Ventricular rate 58 BPM MUSE SYSTEM Atrial Rate 58 BPM MUSE SYSTEM P-R Interval 376 ms MUSE SYSTEM QRS Duration 80 ms MUSE SYSTEM Q-T Interval 406 ms MUSE SYSTEM QTC Calculated (Bezet) 398 ms MUSE SYSTEM Calculated P [place] 47 degrees MUSE SYSTEM Calculated R [place] 7 degrees MUSE SYSTEM Calculated T [place] -50 degrees MUSE SYSTEM INTERPRETATION Sinus bradycardia [...] type documented in this encounter Care Teams Manager Front Relationship Specialty Start Date End Date Vicenta Ndiaye APRN [address] [place] [address] PCP - General Family Medicine 03/11/21 documented as of this encounter
--- OUTSIDE RECORDS SUMMARY | 2024-06-09 14:15 | XMS_ITS | Encounter Summary ---
[place] [address] Care Team Providers Care Tow Motor Driver Name Role Phone TawannameganDaniella Andrez DAILEY Primary Care Provider Encounter Details Date Type Department Care Team (Late st Contact Info) Description 09/23/2009 Abstract Radiology and Cardiology Results [address] [place] [phone] Nlh Conversion, Results Provider, Social History [...] Hospital Encounter Non[place] [phone] Arrived documented as of this encounter Procedures [...] on filedocumented in this encounter Care Teams Tow Motor Driver Relationship Specialty Start Date End Date Daniella Denny, ANALOG IC DESIGN ARCHITECT [address] [facility] [address] [place] [address] PCP - General 07/21/10 03/10/21 documented as of this encounter
--- OUTSIDE RECORDS SUMMARY | 2024-06-09 14:15 | XMS_ITS | Encounter Summary ---
Author Organization [facility] [place] [address] Care Team Providers Care Silverware Etcher Name Role Phone Senthil Vicenta DAILEY Primary Care Provider [phone] Reason for Visit * Auth/Cert Specialty Diagnoses / Procedures Referred By Contac t Referred To Contact Diagnoses atrial fibrillation Procedures PRO CARDIOVERSION ELECTIVE ARRHYTHMIA EXTERNAL CARDIOVERSION-ELECTIVE (WRVU 2.25) Referral ID Status Reason Start Date Expiration Date Visits Re quested Visits Authorized [id number] 1 1 Encounter Details Date Type Department Care Team (Late st Contact Info) Description 07/16/2021 12:00 PM EST - 07/16/2021 12:30 PM EST [place] [address] Janett Vidal MD [facility] [place] [address] CARDIOVERSION-ELECTIVE (WRVU 2) Social History Tobacco Use [...] the adhesive pads were placed, call the senior financial reporting analyst performance solutions specialist at . ? We will schedule a follow-up appointment with the senior financial reporting analyst here, or you will be scheduled to [...] fibrillation ELECTRICAL CARDIOVERSION Attending: Janett Vidal MD Strap Buckler: Date of Procedure: 07/16/2021 Indication: Atrial fibrillation, [...] AM EST Hospital Encounter [place] [address] Arrived documented as of this encounter Procedures Procedure Name Priority Date/Time Associated Diagnosis Comments EKG 12-LEAD STAT 07/16/2021 12:41 PM EST Persistent atrial fibrillation Cardioversion Elective Arrhythmia External ([id number]) 07/16/2021 12:12 PM EST Persistent atrial fibrillation [...] (Bezet) 428 ms MUSE SYSTEM Calculated P [place] 33 degrees MUSE SYSTEM Calculated R [place] -4 degrees MUSE SYSTEM Calculated T [place] -28 degrees MUSE SYSTEM INTERPRETATION 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
--- OUTSIDE RECORDS SUMMARY | 2024-06-09 14:15 | XMS_ITS ---
Author Organization Unknown Address [address] [place] [phone] Phone Care Team Providers Care Boat Builder And Repairer Name Role Phone SHAHIDA Hobbs Attending Unavailable [...] by: CEO BESSY BARRETO MD Transcribed by: [facility] 11/24/21/12:29 D Wednesday, November 24, 2021 11:58:34 AM [id number] Electronically Reviewed and Signed By: BESSY BARRETO MD 11/24/21 12:38 Copy for: SHAHIDA Hobbs via fax Copy for: [facility] Social History Type Status Start Date End Date Code Code Syst em Smoking History Never smoker (Never Smoked) [id number] SNOMED CT Sex Female Hospital Discharge Instructions [...] Code Code Sys tem Screening mammography 11/24/2021 [id number] SNOMED -CT Personal Care Team Section Performer Name Performer Role Active Date Inactive Da te
--- OUTSIDE RECORDS SUMMARY | 2024-06-09 14:15 | XMS_ITS | Encounter Summary ---
Author Organization [facility] Address [facility] [place] [address] Care Team Providers Care Senior Director Of Strategy Name Role Phone TawannameganDaniella Andrez DAILEY Primary Care Provider Reason for Visit * Reason Comments Palpitations Encounter Details Date Type Department Care Team (Late st Contact Info) Description 11/13/2012 9:30 AM EDT Office Visit [address] [address] Daniel Sexton MD [facility] [place] [address] Palpitations (Primary Dx) Social History Tobacco Use [...] EST Hospital Encounter Non-Invasive [place] [address] Arrived documented as of this encounter Visit Diagnoses Diagnosis Palpitations- Primary documented in this encounter Care Teams Senior Director Of Strategy Relationship Specialty Start Date End Date Daniella Denyn, ASIM [address] [facility] [address] [place] [address] PCP - General 07/21/10 03/10/21 documented as of this encounter
--- OUTSIDE RECORDS SUMMARY | 2024-06-09 14:15 | XMS_ITS | Encounter Summary ---
[place] [address] Care Team Providers Care Health Unit Coordinator Name Role Phone Senthil Vicenta ASIM Primary Care Provider [phone] Encounter Details Date Type Department Care Team (Late st Contact Info) Description 07/07/2021 Orders Only Cardiology at [address] [phone] Meagan Gonzalez PA [facility] [place] [address] Persistent atrial fibrillation Social History Tobacco Use [...] AM EST Hospital Encounter [place] [phone] Arrived documented as of this encounter Results * EKG 12 Lead (07/16/2021 9:42 AM EST) Ventricular rate 63 BPM MUSE SYSTEM QRS Duration 82 ms MUSE SYSTEM Q-T Interval 402 ms MUSE SYSTEM QTC Calculated (Bezet) 411 ms MUSE SYSTEM Calculated R [place] 17 degrees MUSE SYSTEM Calculated T [place] -48 degrees MUSE SYSTEM INTERPRETATION Atrial fibrillation [...] Diaz MD ECG ORDERABLES Performing Organization Address City/[facility]/ZIP Co de Phone Number MUSE SYSTEM * Magnesium (07/16/2021 9:25 AM EST) Magnesium 0.88 0.69 - 1.07 mmol/L [facility] Blood 07/16/2021 9:25 AM EST 07/16/2021 9:50 AM EST Narrative Resulting Agency Comment Spec In Lab Naveen Diaz MD CHEMISTRY ORDERABLES Performing Organization Address City/[facility] Co de Phone Number [facility] [place] [address] * Basic Metabolic Panel (non-fasting) (07/16/2021 9:25 AM EST) Glucose 118 65 - 199 mg/dL [facility] Comment:Diabetes: >=200 mg/d L plus symptoms Blood Urea Nitrogen 16 8 - 18 mg/dL [facility] Creatinine 0.93 0.70 - 1.20 mg/dL [facility] Sodium 140 135 - 145 mmol/L [facility] Potassium 4.5 3.5 - 5.0 mmol/L [facility] Comment: Please note: ??Patients with WBC >100,000 may have falsely elevated Potassium levels. ??For accurate Potassium quantification in these patients send serum separator tube (gold top) for subsequent determinations. ??Contact the Clinical Chemistry Laboratory if there are any questions. Chloride 105 98 - 107 mmol/L [facility] Carbon Dioxide 25 22 - 31 mmol/L [facility] Anion Gap 10 5 - 15 mmol/L [facility] Calcium 9.7 8.5 - 10.5 mg/dL [facility] Est Glomerular Filtration Rate 60 >=60 mL/min/1. 73 m?? [facility] Comment: This patient? s estimated [...] In Lab Naveen Diaz MD CHEMISTRY ORDERABLES [facility] [place] [address] documented in this encounter Visit Diagnoses Diagnosis Persistent atrial fibrillation Atrial fibrillation documented in this encounter Care Teams Health Unit Coordinator Relationship Specialty Start Date End Date Vicenta Ndiaye APRN [address] [place] [address] PCP - General Family Medicine 03/11/21 documented as of this encounter
--- OUTSIDE RECORDS SUMMARY | 2024-06-09 14:15 | XMS_ITS | Encounter Summary ---
[place] [address] Care Team Providers Care Bow Maker Gift Wrapping Name Role Phone Barrydinh Daniella Andrez DAILEY Primary Care Provider Encounter Details Date Type Department Care Team (Late st Contact Info) Description 10/27/2015 Abstract Radiology and Cardiology Results [address] [place] [phone] Pending Sale To [facility] Conversion, Results Provider, Social History [...] AM EST Hospital Encounter Non-[place] [phone] Arrived documented as of this encounter Procedures [...] Nlh Conversion URINE ORDERABLES Performing Organization Address [facility] Co de Phone Number [facility] CONVERSION * (ABNORMAL) Hemoglobin A1c (10/27/2015 8:18 AM EST) Estimated Average Glucose See note(Exter nal Lab) mg/dL [facility] CONVERSION Hemoglobin A1c 6.0(ExtH) 4.3 - 5.6 % [facility] CONVERSION 10/27/2015 8:18 AM EST Results Provider Nlh Conversion MD ARIANA CALIX ORDERABLES Performing Organization Address [facility] Co de Phone Number [facility] CONVERSION * (ABNORMAL) TSH (10/27/2015 8:18 AM EST) Thyroid Stimulating Hormone 3.113(Ext ernal Lab) 0.460 - 4.680 uIU/mL [facility] CONVERSION 10/27/2015 8:18 AM EST Results Provider Nlh Conversion MD ARIANA CALIX ORDERABLES Performing Organization Address City/[facility]/ZIP Co de Phone Number [facility] CONVERSION * (ABNORMAL) Comprehensive metabolic panel (non-fasting) (10/27/2015 8:18 AM EST) Sodium 140(Exter nal Lab) 137 - 145 mmol/L [facility] CONVERSION Glucose 103(ExtH) 65 - 99 mg/dL [facility] CONVERSION Chloride 102(Exter nal Lab) 98 - 107 mmol/L [facility] CONVERSION Alkaline Phosphatase 75(Realtime Reporter al Lab) 38 - 126 U/L [facility] CONVERSION Est Glomerular Filtration Rate 60(Realtime Reporter al Lab) >=60 mL/min/1. 73m2 [facility] CONVERSION eGFR 60(Realtime Reporter al Lab) >=60 mL/min/1. 73m2 [facility] CONVERSION Alanine Aminotransferase 35(Realtime Reporter al Lab) 13 - 69 U/L [facility] CONVERSION Aspartate Aminotransferase 24(Realtime Reporter al Lab) 15 - 46 U/L [facility] CONVERSION Carbon Dioxide 24(Realtime Reporter al Lab) 22.0 - 30.0 mmol/L [facility] CONVERSION Blood Urea Nitrogen 19(Realtime Reporter al Lab) 7 - 20 mg/dL [facility] [...] 440 thou/mm3 [facility] CONVERSION Mean Cell Volume 89(Realtime Reporter al Lab) 81 - 97 fl [facility] CONVERSION Neutrophil % 45.9(Exte rnal Lab) % [facility] CONVERSION Lymph % 43.4(Exte rnal Lab) % [facility] CONVERSION Hematocrit 42(Realtime Reporter al Lab) 37 - 47 % [facility] CONVERSION Mean Cell Hemoglobin Concentration 33(Realtime Reporter al Lab) 32 - 36 % [facility] CONVERSION Mean Cell Hemoglobin 30(Realtime Reporter al Lab) 27 - 32 pg NL[facility] [...] LDL) (10/27/2015 8:18 AM EST) LDL Cholesterol 76(Realtime Reporter al Lab) <=99 mg/dL [facility] CONVERSION HDL Cholesterol 54(Realtime Reporter al Lab) >=40 mg/dL [facility] CONVERSION Cholesterol/HDL Ratio 2.9(Exter nal Lab) ratio [facility] CONVERSION Cholesterol, Total 159(Exter nal Lab) <=199 mg/dL [facility] CONVERSION Triglyceride 143(Exter nal Lab) <=149 mg/dL [facility] CONVERSION 10/27/2015 8:18 AM EST Results Provider Nlh Conversion MD ARIANA CALIX ORDERABLES [facility] CONVERSION documented in this encounter Visit Diagnoses Not on filedocumented in this encounter Care Teams Bow Maker Gift Wrapping Relationship Specialty Start Date End Date Daniella Denny, COMMUNITY EDUCATION COORDINATOR [address] [place] [address] [address] [place] [address] PCP - General 07/21/10 03/10/21 documented as of this encounter
--- OUTSIDE RECORDS SUMMARY | 2024-06-09 14:15 | XMS_ITS | Encounter Summary ---
[place] [address] Care Team Providers Care Section Hand Helper Name Role Phone BarrydinhDaniella Andrez DAILEY Primary Care Provider Encounter Details Date Type Department Care Team (Late st Contact Info) Description 11/26/2016 Abstract Radiology and Cardiology Results [address] [place] [phone] [facility] Conversion, Results Provider, Social History Tobacco [...] AM EST Hospital Encounter [place] [phone] Arrived documented as of this encounter Procedures [...] 440 thou/mm3 [facility] CONVERSION Mean Cell Volume 89(Kiln Cleaner al Lab) 81 - 97 fl [facility] CONVERSION Neutrophil % 46.2(Exte rnal Lab) % [facility] CONVERSION Lymph % 44.2(Exte rnal Lab) % [facility] CONVERSION Hematocrit 41(Kiln Cleaner al Lab) 37 - 47 % [facility] CONVERSION Mean Cell Hemoglobin Concentration 33(Kiln Cleaner al Lab) 32 - 36 % [facility] CONVERSION Mean Cell Hemoglobin 29(Kiln Cleaner al Lab) 27 - 32 pg [facility] CONVERSION Hemoglobin 13.6(Exte rnal Lab) 12.0 - 16.0 gm/dL [facility] CONVERSION RDW coefficient of variation 13(Kiln Cleaner al Lab) 11.5 - 15.5 % NL[facility] [...] - 107 mmol/L [facility] CONVERSION Alkaline Phosphatase 72(Kiln Cleaner al Lab) 38 - 126 U/L [facility] CONVERSION Est Glomerular Filtration Rate 60(Kiln Cleaner al Lab) >=60 mL/min/1. 73m2 [facility] CONVERSION eGFR 60(Kiln Cleaner al Lab) >=60 mL/min/1. 73m2 [facility] CONVERSION Alanine Aminotransferase 39(Kiln Cleaner al Lab) 13 - 69 U/L [facility] CONVERSION Carbon Dioxide 27(Kiln Cleaner al Lab) 22.0 - 30.0 mmol/L [facility] CONVERSION Aspartate Aminotransferase 24(Kiln Cleaner al Lab) 15 - 46 U/L [facility] CONVERSION Blood Urea Nitrogen 18(Kiln Cleaner al Lab) 7 - 20 mg/dL [facility] CONVERSION Calcium 10(Kiln Cleaner al Lab) 8.4 - 10.2 mg/dL NL[facility] [...] Nlh Conversion URINE ORDERABLES Performing Organization Address [facility] Co de Phone Number NL[facility] CONVERSION * (ABNORMAL) Lipid Panel (Reflex Direct LDL) (11/26/2016 7:58 AM EDT) Pathologist [facility] Lipid Interpretation See Note(Exte rnal Lab) NL[facility] CONVERSION LDL Cholesterol 58(Kiln Cleaner al Lab) <=190 mg/dL [facility] CONVERSION HDL Cholesterol 55(Kiln Cleaner al Lab) >=40 mg/dL [facility] CONVERSION Cholesterol/HDL [...] C Antibody (11/26/2016 7:58 AM EDT) Pathologist [facility] Hepatitis C Antibody Negative(E xternal Lab) Negative [facility] CONVERSION 11/26/2016 7:58 AM EDT Results Provider Nlh Conversion MD ARIANA CALIX ORDERABLES [facility] CONVERSION * (ABNORMAL) Vitamin D, 25-Hydroxy (11/26/2016 7:58 AM EDT) Pathologist [facility] Vit D, 25-Hydroxy 41(Externa l Lab) 30 - 100 ng/mL [facility] CONVERSION 11/26/2016 7:58 AM EDT Results Provider Nlh Conversion MD ARIANA CALIX ORDERABLES [facility] CONVERSION * (ABNORMAL) Hemoglobin A1c (11/26/2016 7:58 AM EDT) Pathologist [facility] Estimated Average Glucose See note(Exter nal Lab) mg/dL [facility] CONVERSION Hemoglobin A1c 5.8(ExtH) 4.3 - 5.6 % [facility] CONVERSION 11/26/2016 7:58 AM EDT Results Provider Nlh Conversion MD ARIANA MORAABLES [facility] CONVERSION documented in this encounter Visit Diagnoses Not on filedocumented in this encounter Care Teams Section Hand Helper Relationship Specialty Start Date End Date Daniella Denny, TANK REFINISHER [address] [place] [address] [address] [place] [address] PCP - General 07/21/10 03/10/21 documented as of this encounter
--- OUTSIDE RECORDS SUMMARY | 2024-06-09 14:15 | XMS_ITS | Encounter Summary ---
Author Organization [facility] [place] [address] Care Team Providers Care Water Valve Repairer Name Role Phone Daniella Denny Andrez DAILEY Primary Care Provider Reason for Visit * Reason Comments Palpitations Encounter Details Date Type Department Care Team (Late st Contact Info) Description 11/29/2011 8:30 AM EDT Office Visit [address] [address] Daniel Sexton MD [facility] [place] [address] Palpitations (Primary Dx) Social History Tobacco Use [...] AM EST Hospital Encounter [place] [address] Arrived documented as of this encounter Visit Diagnoses Diagnosis Palpitations- Primary documented in this encounter Care Teams Water Valve Repairer Relationship Specialty Start Date End Date Daniella Denny, DUCT LAYER [address] [place] [address] [address] [place] [address] PCP - General 07/21/10 03/10/21 documented as of this encounter
--- NOTE | 2024-06-09 14:33 | W.ED.GENAD ---
Discharge Plan Disposition Patient Disposition: Home Condition: Stable Discharge Details Clinical Impression: Nausea vomiting and diarrhea, Acute UTI Primary Care Provider: Vicenta Ndiaye ED Provider: Mikaela Espinoza Home Meds and New Rx's Prescriptions: New ondansetron 4 mg tablet,disintegrating 4 mg PO Q8H PRN (Reason: nausea and vomiting) 4 Days Qty: 9 0RF Rx Instructions: Take 1 tablet up to 3 times daily as needed for nausea and vomiting 20 minutes prior to meals. cephalexin 500 mg tablet 500 mg PO BID 7 Days Qty: 14 0RF No Action levothyroxine 13 mcg capsule 50 mcg PO DAILY losartan 50 mg tablet 50 mg PO DAILY rosuvastatin 5 mg tablet 5 mg PO DAILY Xarelto 20 mg tablet 20 mg PO DAILY Rx Instructions: must administer with evening meal ferrous sulfate [FeroSul] 325 mg (65 mg iron) tablet 325 mg PO DAILY multivitamin Tablet 1 tab PO DAILY isosorbide mononitrate 30 mg tablet extended release 24 hr 30 mg PO DAILY Patient Comments: TAKE ONE TABLET BY MOUTH EVERY MORNING Discharge Instructions Instructions: Diarrhea, Adult ED, Nausea and Vomiting, Adult ED Additional Instructions: Please take the nausea medications as directed 20 to 30 minutes prior to eating or drinking anything. No evidence for COVID or flu. Your labs are largely unremarkable. Please drink an electrolyte drink such as Gatorade or similar while having diarrhea. Follow up with primary care provider in 3-5 days. Return to ED sooner if any worsening or concerns. Please take Tylenol or Ibuprofen with food every 4-6 hours as needed for pain and swelling. Thank you for allowing us to care for you today. Referrals: Vicenta Ndiaye [Primary Care Provider] - 3 days Discharge Data Discharge Date/Time-TO BE ENTERED AT DEPARTURE: 06/09/24 16:16 HPI General Mode of arrival: ambulatory. Date/Time Provider Initiated Documentation: 06/09/24 14:10. Limitations to Documentation: no limitations. Information obtained by: patient, RN notes reviewed and old records reviewed. HPI Narrative: 78-year-old female presents to the ER with a chief complaint of nausea vomiting diarrhea since yesterday. She also reports body aches and chills. She did take a gram of Tylenol this morning around 6 AM prior to arrival. Reports abdominal cramping. Denies any problems urinating or burning with urination. Denies any recent travel. Related Data Home Medications ?Medication ?Instructions ?Recorded ?Confirmed rivaroxaban 20 mg tablet (Xarelto) 20 mg PO DAILY 09/08/20 06/09/24 levothyroxine 13 mcg capsule 50 mcg PO DAILY 10/17/20 06/09/24 multivitamin 1 tab PO DAILY 04/27/21 06/09/24 ferrous sulfate 325 mg (65 mg 325 mg PO DAILY 02/06/23 06/09/24 iron) tablet (FeroSul) isosorbide mononitrate 30 mg 30 mg PO DAILY 05/05/23 06/09/24 tablet,extended release 24 hr losartan 50 mg tablet 50 mg PO DAILY 05/04/24 06/09/24 rosuvastatin 5 mg tablet 5 mg PO DAILY 05/04/24 06/09/24 ondansetron 4 mg disintegrating 4 mg PO Q8H PRN nausea and 06/09/24 tablet vomiting 4 days #9 tabs cephalexin 500 mg tablet 500 mg PO BID 7 days #14 tabs 06/10/24 Previous Rx's ?Medication ?Instructions ?Recorded ondansetron 4 mg disintegrating 4 mg PO Q8H PRN nausea and 06/09/24 tablet vomiting 4 days #9 tabs cephalexin 500 mg tablet 500 mg PO BID 7 days #14 tabs 06/10/24 Allergies Allergy/AdvReac Type Severity Reaction Status Date / Time diflunisal (From Dolobid) AdvReac Mild Skin Rash Verified 06/10/24 07:09 ezetimibe (From Zetia) AdvReac Mild Diarrhea Verified 06/10/24 07:09 quinapril (From Accupril) AdvReac Mild RLS Verified 06/10/24 07:09 General Stated Complaint: GenMedical JIMMY: 3 Review of Systems All systems reviewed & are unremarkable except as noted in HPI and below Gastrointestinal Gastrointestinal: Reports abdominal pain, Reports diarrhea, Reports nausea and Reports vomiting Exam Narrative Exam Narrative: Constitutional: Alert and oriented x3. Appears stated age. Normal body habitus. Head: Normocephalic, no trauma. Eyes: Pupils PERRL, Red reflex noted, EOM's intact. Eyelids symmetrical without lesions, discharge, or swelling. ENT: Bilateral TM's WNL, External ear normal to inspection, no mastoid TTP, swelling, or erythema, Nasal turbinates WNL, no nasal discharge. Normal dentition, Posterior pharynx WNL, no exudate. Chest: RRR, Normal S1, S2, distal pulses intact. Resp: Lungs clear to auscultation bilaterally, no wheezes, rales, or rhonchi. Abdomen: Soft, non-distended, Normoactive bowel sounds all 4 quads. Musculoskeletal: Normal gait, Moves all 4 extremities without difficulty. Skin: No suspicious rashes or lesions. Capillary refill less than 2 sec. Neurologic: Cranial nerves II-XII intact. Alert and oriented x 3. Motor: No deficits noted. Sensory: Intact bilaterally all 4 extremities. Hematologic/Lymphatic: No ecchymosis, no lymphadenopathy. Course Vital Signs Vital signs: Vital Signs Temperature 36.5 C 06/09/24 14:12 Pulse 60 06/09/24 14:12 Respiratory Rate 20 06/09/24 14:12 Blood Pressure 158/80 H 06/09/24 14:12 Pulse Oximetry 97 06/09/24 14:12 Temperature 36.5 C 06/09/24 14:12 Pulse 64 06/09/24 14:28 Respiratory Rate 19 06/09/24 14:28 Respiratory Effort Normal 06/09/24 14:28 Blood Pressure 142/55 H 06/09/24 14:28 Blood Pressure Position Sitting 06/09/24 14:12 Pulse Oximetry 98 06/09/24 14:28 Oxygen Delivery Method Room Air 06/09/24 14:28 Oxygen Flow Rate 0 06/09/24 14:12 Pain Level 0 06/09/24 14:28 Medical Decision Making 78-year-old female presents to the ER with a chief complaint of nausea vomiting diarrhea since yesterday. She also reports body aches and chills. She did take a gram of Tylenol this morning around 6 AM prior to arrival. Reports abdominal cramping. Denies any problems urinating or burning with urination. Denies any recent travel. Workup ordered including CBC CMP lipase urinalysis. CBC shows no leukocytosis, CMP largely within normal limits glucose slightly elevated at 114, negative COVID flu RSV. Will send patient home with Zofran given prescription for Zofran. At this imaging deferred no abdominal pain labs are largely unremarkable. This text was generated using [employer] system, please disregard any oddities of phrase or misspellings. 06/10/24 0816: Follow up: POsitive Leukocytes and 10-20 WBCs on UA will call in a prescription for cephalexin 500 mg PO BID to patient. Call made to patient who verbalized understanding, she states vomiting is better, but continues to have diarrhea. This text was generated using [employer] system, please disregard any oddities of phrase or misspellings. Medical Records Medical records reviewed: Yes I reviewed the patient's medical records. Lab Data Lab results reviewed: Yes I reviewed the patient's lab results. Labs: Laboratory Tests Range/Units 06/09/24 06/09/24 14:10 14:48 WBC (4.4-10.8) 10^3/uL 4.30 L RBC (3.93-5.22) 10^6/uL 4.41 Hgb (11.2-15.7) g/dL 13.8 Hct (36.0-46.0) % 42.3 MCV (80-95) fL 96 H MCH (27.0-33.0) pg 31.3 MCHC (32.0-36.0) % 32.6 RDW (11.7-14.6) % 14.6 Plt Count (130-400) 10^3/uL 180 MPV (8.0-11.0) fL 9.6 Immature Gran % % 0.2 Neutrophils % % 68.9 Lymphocytes % % 19.5 Monocytes % % 10.2 Eosinophils % % 0.7 Basophils % % 0.5 Nucleated RBC % (0.0-0.3) % 0.0 Absolute Neutrophils (1.2-6.7) 10^3/uL 2.96 Absolute Lymphocytes (1.2-3.4) 10^3/uL 0.84 L Absolute Monocytes (0.1-0.8) 10^3/uL 0.44 Absolute Eosinophils (0.0-0.7) 10^3/uL 0.03 Absolute Basophils (0.0-0.2) 10^3/uL 0.02 Sodium (136-145) mmol/L 139 Potassium (3.5-5.1) mmol/L 3.6 Chloride (98-107) mmol/L 104 Carbon Dioxide (21.0-32.0) mmol/L 24.0 Anion Gap (3-11) mmol/L 11.0 BUN (7-18) mg/dL 16 Creatinine (0.55-1.02) mg/dL 0.9 Est GFR (CKD-EPI 2020) (mL/min/1.73m2) 65.44 Glucose (74-106) mg/dL 114 H Calcium (8.5-10.1) mg/dL 9.4 Magnesium (1.8-2.4) mg/dL 2.0 Total Bilirubin (0.2-1.0) mg/dL 0.90 AST (15-37) U/L 26 ALT (14-59) U/L 26 Alkaline Phosphatase (46-116) U/L 62 Total Protein (6.4-8.2) g/dL 7.6 Albumin (3.4-5.0) g/dL 3.8 Lipase (16-77) U/L 22 COVID-19 Source Nasopharynx SARS-CoV-2 (PCR) (Negative) Negative Influenza Type A (PCR) (Negative) Negative Influenza Type B (PCR) (Negative) Negative RSV (PCR) (Negative) Negative Quality:SDOH Health Related Social Needs: No Data to Display PFSH All Active Problems (Updated 06/10/24 @ 08:16 by Mikaela Espinoza NP) Acute UTI (Acute) Nausea vomiting and diarrhea (Acute) History of total left knee replacement (Acute 05/09/24) Dysphagia (Acute) Restless leg syndrome (Acute) Essential tremor (Acute) Laceration of finger of left hand (Acute) A-fib (Chronic) Medical History 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 Neck abscess Hypertension Hepatitis C High cholesterol Leukopenia Heart murmur History of reactive airway disease History of prediabetes Diverticular disease Rosacea Knee joint pain Subclinical hypothyroidism Surgical History S/P surgical removal of pilonidal cyst S/P tonsillectomy and adenoidectomy H/O cardiac radiofrequency ablation Family History Brother Hypertension Hyperlipidemia Heart disease Father Hypertension Hyperlipidemia Heart disease Mother Hypertension Hyperlipidemia Diabetes Heart disease Social History Smoking/Tobacco Use Status: Never Smoking risk assessment performed?: Yes Alcohol Intake: current Alcohol Intake frequency: a few times a month Alcohol type: wine Drug use: Never Substance use type: does not use Household members: spouse Housing: house Number of Children: 2 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
[2024-06-09] MEDS: Ondansetron 4 MG/2 ML VIAL IVP (14:53)
[2024-06-09 14:54] LABS: Abs Immature Grans 0.01 10^3/uL (0.0-0.06); Absolute Basophil Count 0.02 10^3/uL (0.0-0.2); Absolute Eosinophil Count 0.03 10^3/uL (0.0-0.7); Absolute Lymphocyte Count 0.84 10^3/uL (1.2-3.4); Absolute Monocyte Count 0.44 10^3/uL (0.1-0.8); Absolute Neutrophil Count 2.96 10^3/uL (1.2-6.7); Basophils % 0.5 %; Eosinophils % 0.7 %; HCT 42.3 % (36.0-46.0); HGB 13.8 g/dL (11.2-15.7); Immature Grans % 0.2 %; Lymphocytes % 19.5 %; MCH 31.3 pg (27.0-33.0); MCHC 32.6 % (32.0-36.0); MCV 96 fL (80-95); MPV 9.6 fL (8.0-11.0); Monocytes % 10.2 %; Neutrophils % 68.9 %; Platelet Count 180 10^3/uL (130-400); RBC 4.41 10^6/uL (3.93-5.22); RDW 14.6 % (11.7-14.6); RDW-SD 51.8 fL
[2024-06-09 15:09] LABS: ALT 26 U/L (14-59); AST 26 U/L (15-37); Albumin 3.8 g/dL (3.4-5.0); Alkaline Phosphatase 62 U/L (46-116); BUN 16 mg/dL (7-18); CREATININE 0.9 mg/dL (0.55-1.02); Calcium 9.4 mg/dL (8.5-10.1); Chloride 104 mmol/L (98-107); Estimated GFR 65.44 (mL/min/1.73m2); Glucose 114 mg/dL (74-106); Lipase 22 U/L (16-77); Potassium 3.6 mmol/L (3.5-5.1); Sodium 139 mmol/L (136-145); Total Protein 7.6 g/dL (6.4-8.2)
[2024-06-09 15:11] LABS: COVID-19 PCR Negative (Negative); Influenza A PCR Negative (Negative); Influenza B PCR Negative (Negative); RSV PCR Negative (Negative)
[2024-06-09 15:12] LABS: Source Nasopharynx
[2024-06-09 15:53] LABS: Bilirubin Negative (Negative); Blood Moderate (Negative); Clarity Cloudy (Clear); Glucose Negative (Negative); Ketones Negative (Negative); Leukocyte Esterase Moderate (Negative); Nitrite Negative (Negative); Urobilinogen 0.2 mg/dL (Up to 0.2)
[2024-06-09 16:11] LABS: Bacteria Many HPF (Negative); C & S Indicated? Yes; Casts Negative LPF (Negative); Crystals Negative HPF (Negative); Epithelial Cells Rare HPF (Negative); Mucus Negative (Negative)
[2024-06-09] MEDS: Ondansetron O.D.T. 4 MG TABEF, 3 TABS/BTL PO (16:15)
== END 2024-06-09 16:16 | disposition home or self-care (01) ==
PROVIDERS: Emergency Provider Registered Nurse Emergency; PCP Nurse Practitioner Family
DX: R11.2 Nausea with vomiting, unspecified (principal); R19.7 Diarrhea, unspecified; N39.0 Urinary tract infection, site not specified
CPT/HCPCS: 80053; 83690; 87637; 96374; 99284; 81003; 81015; 83735; 85025; 87086; J2405

== ENCOUNTER → 2024-06-25 12:57 | Outpatient (BNVA) | payer MEDICARE, SELFPAY | PROVIDERS: PCP Nurse Practitioner Family; Visit Provider Student in an Organized Health Care Education/Training Program | DX: Z47.1 Aftercare following joint replacement surgery (principal); Z96.652 Presence of left artificial knee joint | CPT/HCPCS: 99024 ==

== ENCOUNTER → 2024-08-06 13:14 | Outpatient (BNVA) | payer MEDICARE, SELFPAY | PROVIDERS: PCP Nurse Practitioner Family; Referring Provider Nurse Practitioner Family; Visit Provider Student in an Organized Health Care Education/Training Program | DX: Z47.1 Aftercare following joint replacement surgery (principal); Z96.652 Presence of left artificial knee joint | CPT/HCPCS: 99024 ==

== ENCOUNTER 2024-11-14 03:42 | Outpatient (CLI) | payer MEDICARE, SELFPAY ==
[2024-11-14 09:33] LABS: Calculated LDL 42 mg/dL (<100); Cholesterol 128 mg/dL (<200); HDL Cholesterol 74 mg/dL (>or=50); Triglyceride 60 mg/dL (<150)
== END 2024-11-14 03:43 | disposition home or self-care (01) ==
LOC: LBO 03:42
PROVIDERS: PCP Nurse Practitioner Family; Visit Provider Internal Medicine
DX: E78.5 Hyperlipidemia, unspecified (principal)
CPT/HCPCS: 36415; 80061

== ENCOUNTER 2024-12-20 17:08 | Outpatient (REF) | payer MEDICARE, SELFPAY ==
[2024-12-20 16:42] LABS: Hemoglobin A1C 5.7 % (<5.7)
[2024-12-20 16:45] LABS: TSH (W/Ref FT4) 2.89 uIU/mL (0.36-3.74)
== END 2024-12-20 17:09 | disposition home or self-care (01) ==
LOC: NCHCN 17:08
PROVIDERS: PCP Nurse Practitioner Family; Visit Provider Nurse Practitioner Family
DX: R73.03 Prediabetes (principal); E03.9 Hypothyroidism, unspecified
CPT/HCPCS: 83036; 84443

== ENCOUNTER 2025-01-15 00:56 | Outpatient (CLI) | payer MEDICARE, SELFPAY ==
--- NOTE | 2025-01-15 | DI.DEXA_ITS ---
Exam(s) XR DEXA BONE DENSITY W/WO REUBEN EXAM: XR DEXA BONE DENSITY W/WO REUBEN CLINICAL HISTORY: ASYMPTOMATIC MENOPAUSAL STATE,Z78.0 TECHNIQUE: HoloAPGR Green C densitometer analysis of left hip, lumbar spine and left forearm. Lat eral survey image of the thoracic and lumbar spine. COMPARISON: No exams were available for comparison FINDINGS: Lateral view of the thoracic and lumbar spine shows no evidence of compression fractures. Bone mineral density measurements of the lumbar spine correspond to a total T-score of 2.5, in the n ormal range Bone mineral density measurements of the left hip correspond to a total T-score of -0.1, in the norm al range. The femoral neck T-score is -0.7, in the normal range. Theleft forearm bone mineral density measurements correspond to a T-score of the distal 3rd of -1.2, in the mildly osteopenic range.. IMPRESSION: Normal bone mineral density of the spine and hip. Mild osteopenia of forearm.
== END 2025-01-15 01:16 ==
LOC: DI 00:56
PROVIDERS: PCP Nurse Practitioner Family; Visit Provider Nurse Practitioner Family
DX: Z78.0 Asymptomatic menopausal state (principal); M81.0 Age-related osteoporosis without current pathological fracture
CPT/HCPCS: 77080

== ENCOUNTER 2025-05-09 10:36 | Outpatient (CLI) | payer MEDICARE, SELFPAY ==
--- NOTE | 2025-05-09 09:30 | DI.RAD_ITS ---
Exam(s) XR KNEE LT 2V AP,LAT EXAM: XR KNEE LT 2V AP,LAT INDICATION: ANNUAL F/U L TKA. COMPARISON: CR XR KNEE LT 1V from 05/24/2024 CR XR STANDING ALIGNMENT from 05/24/2024 TECHNIQUE: 2D digital imaging was performed. Two views. FINDINGS: Stable alignment of total knee prosthesis. No abnormal surrounding bony lucencies. DATA REPOSITORY: RADIATION DOSE DELIVERED:
== END 2025-05-09 10:37 | disposition home or self-care (01) ==
LOC: DIORS 10:36
PROVIDERS: PCP Nurse Practitioner Family; Visit Provider Student in an Organized Health Care Education/Training Program
DX: Z47.1 Aftercare following joint replacement surgery (principal); Z96.652 Presence of left artificial knee joint
CPT/HCPCS: 99212; 73560